=== PATIENT | female | born 1980 | race Caucasian/White ===

== ENCOUNTER → 2020-03-31 11:01 | Outpatient (BNVA) | payer MEDICAID, SELFPAY | PROVIDERS: Family Provider Family Medicine; PCP Nurse Practitioner Family; Visit Provider Nurse Practitioner Family | DX: I10 Essential (primary) hypertension (principal); E55.9 Vitamin D deficiency, unspecified; R09.02 Hypoxemia; J22 Unspecified acute lower respiratory infection; Z13.6 Encounter for screening for cardiovascular disorders; Z79.899 Other long term (current) drug therapy | CPT/HCPCS: 80053; 80061; 81003; 82306; 83036; 83735; 83880; 84100; 84439; 84443; 84481; 85025 ==

== ENCOUNTER 2022-09-06 10:41 | Inpatient (IN) | payer BC, MEDICAID, SELFPAY ==
[2022-09-06] VITALS (61 sets, daily range): BP systolic 116–244; BP diastolic 76–191; PULSE 78–98; RESP 1–33; TEMP 36.6; O2SAT 89–100; BMI 60.2
--- NOTE | 2022-09-06 10:45 | USCV_ITS ---
Sungseptember Age: 42 Gender: F : 1980 Exam Date: 09/06/2022 11:02 Ordering Phys: Mariusz Velasquez MD Technologist: Milton Washington Exam Location: [facility] [place] Indication: chest pain BP: 160 / 94 HR: 90 Rhythm: Sinus Technical Quality: Adequate MEASUREMENTS (Male / Female) Normal Values 2D ECHO LV Diastolic Diameter PLAX 6.8 cm 4.2 - 5.9 / 3.9 - 5.3 cm LV Systolic Diameter PLAX 4.8 cm IVS Diastolic Thickness 0.9 cm 0.6 - 1.0 / 0.6 - 0.9 cm IVS Systolic Thickness 1.4 cm LVPW Diastolic Thickness 1.1 cm 0.6 - 1.0 / 0.6 - 0.9 cm LVPW Systolic Thickness 1.6 cm LVOT Diameter 2.1 cm LV Ejection Fraction 2D Teich 55.8 % LV Ejection Fraction MOD 2C 54.6 % LV Ejection Fraction 2C AL 55.2 % LA Diameter 4.4 cm LA Width 4.0 cm LA Height 5.2 cm RA Width 3.0 cm RA Height 5.0 cm Aorta at Sinotubular Diameter 2.7 cm IVC Diameter 2.0 cm M-MODE Aortic Annulus Diameter 2.9 cm LA Ao Ratio MM 1.5 MV E Point Septal Separation 1.0 cm DOPPLER AV Peak Velocity 199.0 cm/s LVOT Peak Velocity 121.0 cm/s AV Area Cont Eq vti 2.4 cm squared AV Area Cont Eq pk 2.0 cm squared MV Peak Velocity 175.0 cm/s MV Area PHT 6.7 cm squared Mitral E to A Ratio 0.9 MV E' Velocity 36.0 cm/s Mitral E to MV E' Ratio 6.3 Mitral E to LV E' Lateral Ratio 9.9 Mitral E to LV E' Septal Ratio 4.6 Right Atrial Pressure 3.0 mmHg PV Peak Velocity 93.0 cm/s RV Acceleration Time 0.1 s RV Ejection Time 0.2 s RV AcT/ET 0.4 FINDINGS Left Ventricle Normal left ventricular size, systolic function and wall thickness, with no regional wall motion abnormalities. Left ventricular ejection fraction is estimated at 60 %. Grade I/IV diastolic dysfunction (abnormal relaxation filling pattern), normal to mildly elevated filling pressures. Right Ventricle The right ventricle is normal in size and function. Right Atrium The right atrium is normal in size. Left Atrium The left atrium is normal in size. Mitral Valve Structurally normal mitral valve without significant stenosis or prolapse. Trace mitral regurgitation. Aortic Valve Aortic valve not well visualized. . Tricuspid Valve Tricuspid valve not well visualized. Pulmonic Valve Pulmonic valve not well visualized. Pericardium Normal pericardium without effusion. Aorta Normal ascending aorta dimension. IVC The inferior vena cava appears normal. CONCLUSIONS 1-Normal left ventricular size, systolic function and wall thickness, with no regional wall motion abnormalities. Left ventricular ejection fraction is estimated at 60 %. Grade I/IV diastolic dysfunction (abnormal relaxation filling pattern), normal to mildly elevated filling pressures. 2-Aortic, tricuspid, pulmonary and mitral valves were not well visualized due to suboptimal images probably normal 3-There is no pericardial effusion. 4-There are no prior echocardiogram studies to compare. Lurdes Crain MD (Electronically Signed) Final Date: 06 September 2022 20:03 S
[2022-09-06] MEDS: amlodipine 10 mg Tablet PO (10:59)
[2022-09-06] MEDS: heparin 5,000 unit/mL INJ 1 mL 5000 UNIT SUBCUT ×2 (10:59→18:25)
[2022-09-06] MEDS: nicardipine 20 MG/200 ML PREMIX 50 MG IV ×3 (11:00→22:04)
[2022-09-06] MEDS: hydroCHLOROthiazide 25 mg Tablet PO (11:03)
[2022-09-06] MEDS: lisinopril 20 mg Tablet PO (11:04)
[2022-09-06] MEDS: perflutren protein-a microsphr 0.22 mg/mL SDV 3 mL IV (11:53)
--- NOTE | 2022-09-06 19:02 | P.HP_ITS ---
Providers/Chief Complaint Admitting Physician: Davey Paiz Primary Care Provider: Isacc Cisneros Chief Complaint: hypertensive urgency History of Present Illness Le Almaraz is a 42 year old female with known past medical history of hypertension noncompliant with antihypertensive medication, morbid obesity, was accepted as a direct transfer, she was initially admitted for the management of substernal chest pain, associated with acute onset of worsening shortness of breath. When she arrived in the ER she was found to be in hypertensive emergency, she was started on nitroprusside drip, CTA chest was done which ruled out pulmonary embolism, showed pulmonary vascular congestion, troponin trend was unremarkable, x-ray chest: Suggestive of pulmonary vascular congestion When she arrived here in the ICU she was still complaining of chest tightness as well as shortness of breath, Blood pressure was extremely uncontrolled systolic blood pressure was in 200 as well as diastolic in 130s Maximum noted blood pressure was:244/136. She was started on nicardipine drip, as well as oral antihypertensive. Review of Systems General: Reports: 10 or more systems reviewed and unremarkable except in HPI and below Const: Denies: fever(s), chills, body aches, change in appetite or diaphoresis Card: Reports: dyspnea on exertion and orthopnea; Denies: palpitations, edema, swelling of feet/ankles or leg pain with exertion Resp: Reports: dyspnea; Denies: productive cough, wheezing or pain on inspiration GI: Denies: abdominal pain, nausea, vomiting, diarrhea or constipation : Denies: flank pain Musc: Denies: back pain, extremity pain or extremity swelling Neuro: Denies: headache(s), difficulty walking or confusion Medications/Allergies Home Medications Medication Instructions Recorded Confirmed Last Taken Type cholecalciferol (vitamin D3) 1,250 50,000 unit PO .Weekly 90 days #12 04/06/20 03/08/22 Unknown Rx mcg (50,000 unit) capsule caps amlodipine 5 mg tablet See Rx Instructions .Route 11/02/20 Unknown Rx .COMPLEX #30 tabs furosemide 20 mg tablet (Lasix) 20 mg PO QAM 30 days #30 tabs 11/02/20 03/08/22 Unknown Rx lisinopril 20 1 tab PO DAILY 30 days #30 tabs 11/02/20 03/08/22 Unknown Rx mg-hydrochlorothiazide 25 mg tablet potassium chloride 10 mEq See Rx Instructions .Route 11/02/20 03/08/22 Unknown Rx capsule,extended release .COMPLEX #30 caps nitrofurantoin 100 mg PO Q12H 7 days #14 caps 03/08/22 03/08/22 Unknown Rx monohydrate/macrocrystals 100 mg capsule (Macrobid) Allergies Allergy/AdvReac Type Severity Reaction Status Date / Time No Known Allergies Allergy Verified 03/08/22 08:47 PFSH Acute PFSH: Medical History (Updated 09/06/22 @ 19:04 by Mariusz Velasquez MD) CHF (congestive heart failure) Essential hypertension Hypertension screen Hypoxia Medication management Polycystic ovarian disease Vitamin D deficiency Surgical History S/P cholecystectomy S/P D&C (status post dilation and curettage) S/P tubal ligation Social History Smoking and tobacco status: former smoker Quit status (tobacco): has quit using tobacco Second hand smoke exposure: No Smoking risk assessment/counseling performed?: No Alcohol intake: never Desire information about alcohol rehabilitation?: No Counseling given: No Desire information about substance/drug rehabilitation?: No Counseling given: No Vitals/I&O/Wt Last Vital Signs Pulse 83 09/06/22 16:30 Resp 20 H 09/06/22 16:30 BP 139/87 09/06/22 16:30 Pulse Ox 94 09/06/22 16:30 O2 Del Method 09/06/22 11:24 O2 Flow Rate 4 09/06/22 11:24 09/06/22 09/06/22 09/06/22 06:59 14:59 22:59 Intake Total 560.000 / 560.000 240 / 800.000 Output Total 125 / 125 400 / 525 Balance 435.000 / 435.000 -160 / 275.000 Weight last 48 hrs Weight 174.633 kg Physical Exam Const: COMMON NORMALS: patient oriented x3 HENMT: COMMON NORMALS: normocephalic, atraumatic and hearing grossly normal bilaterally HEAD & SCALP: normocephalic and atraumatic Resp: COMMON NORMALS: clear to auscultation bilaterally AUSCULTATION: clear to auscultation bilaterally OTHER: Diminished air entry bilaterally Cardio: COMMON NORMALS: regular rate, regular rhythm, S1 normal heart sound present, S2 normal heart sound present, No gallops present (Cardio), No murmurs present (Cardio), No rub (Cardio) and Peripheral pulses 2+ throughout RATE: regular rate RHYTHM: regular rhythm HEART SOUNDS: S1 normal heart sound present and S2 normal heart sound present PERIPHERAL PULSES: Peripheral pulses 2+ throughout GI: COMMON NORMALS: Normal to inspection, nondistended, normoactive bowel sounds present, Soft to palpation, non-tender, No hepatosplenomegaly present and no masses AUSCULTATION: Yes normoactive bowel sounds PALPATION: Yes Soft to palpation and Yes No hepatosplenomegaly present RECTAL EXAM: deferred Extremity: COMMON NORMALS: no clubbing, cyanosis or edema and no pedal edema Neuro: COMMON NORMALS: patient oriented x3 A&P Assessment and plan (1) Hypertensive emergency: (2) Flash pulmonary edema: (3) Hypoxia: Plan 42 year old female with known past medical history of hypertension noncompliant with antihypertensive medication, morbid obesity, was accepted as a direct transfer, she was initially admitted for the management of substernal chest bandar n, associated with acute onset of worsening shortness of breath. Assessment: Hypertensive emergency with flash pulmonary edema: CTA chest was done which ruled out pulmonary embolism, showed pulmonary vascular congestion, troponin trend was unremarkable, x-ray chest: Suggestive of pulmonary vascular congestion. Currently she has been started on nicardipine drip.nitro/ nitroprusside drip has not been used as the patient was complaining of bad headache after being started on nitroprusside drip. Current goal is to reduce blood pressure by 25% in first 1 to 2 hours from the baseline blood pressure and thereafter continue with gradual blood pressure reduction. She has been started on amlodipine lisinopril and hydrochlorothiazide p.o. Continue telemetry monitoring. Chest pain: Could be related to hypertensive emergency. Troponin trend is unremarkable Monitor EKG Follow 2D echo CODE STATUS: Full code DVT prophylaxis: On heparin subacute Attestations Medical Necessity Statement*: Patient is to be in hospital for management of hypertensive emergency. Anticipated length of stay: Greater than 2 midnights. Critical Care Time: The high probability of a clinically significant, sudden or life threatening deterioration of the patient's [] system(s) required my full and direct attention, intervention and personal management. The critical care time is as shown. This time is in addition to time spent performing any reported procedures but includes the following: [x] Data and vital sign review and interpretation [x] Patient assessment, examination and intervention [x] Documentation [x] Medication orders and management Critical Care Time (min): 35 Coding Level of Care Code Critical Care >/= 30 minutes Diagnoses Hypertensive emergency I16.1 Flash pulmonary edema J81.0 Hypoxia R09.02
--- NOTE | 2022-09-06 19:06 | ECG_ITS ---
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1980 Requested By: Mariusz Velasquez Order Number: [id number] Reading MD: FREDDIE VASQUEZ Measurements Intervals [place] Rate: 84 P: 63 WV: 186 QRS: -16 QRSD: 101 T: 110 QT: 380 QTc: 449 Interpretive Statements SINUS RHYTHM POSSIBLE LEFT ATRIAL ENLARGEMENT [-0.1mV P-WAVE IN V1/V2] MODERATE T-WAVE ABNORMALITY, CONSIDER LATERAL ISCHEMIA [-0.1+ mV T-WAVE IN I/aVL/V5/V6] No previous ECG available for comparison Electronically Signed On 09-06-2022 20:32:41 CDT by FREDDIE VASQUEZ [email or web address] [email or web address] county general [id number]
[2022-09-07] VITALS (59 sets, daily range): BP systolic 69–214; BP diastolic 40–114; PULSE 66–106; RESP 0–30; TEMP 36.7–36.9; O2SAT 66–98
[2022-09-07] MEDS: nicardipine 20 MG/200 ML PREMIX 80 MG IV (00:52)
[2022-09-07] MEDS: heparin 5,000 unit/mL INJ 1 mL 5000 UNIT SUBCUT ×2 (02:40→10:29)
[2022-09-07] MEDS: nicardipine 20 MG/200 ML PREMIX 130 MG IV (02:52)
[2022-09-07] MEDS: nicardipine 20 MG/200 ML PREMIX 150 MG IV ×4 (04:12→14:36)
[2022-09-07] MEDS: acetaminophen 325 mg Tablet 650 MG PO (04:50)
[2022-09-07 05:14] LABS: Basophils % 0.2 %; Eosinophils # 0.1 10^3/uL (0.0-0.8); Eosinophils % 1.5 %; Hematocrit 56.5 % (37.0-47.0); Hemoglobin 16.1 g/dL (11.5-15.3); Lymphocytes # 1.5 10^3/uL (0.8-4.8); Lymphocytes % 18.5 %; Mean Corpuscular HGB Conc 28.5 g/dL (30.0-36.0); Mean Corpuscular Hemoglobin 27.2 pg (28.0-34.0); Mean Corpuscular Volume 95.4 fl (81-99); Mean Platelet Volume 10.3 fL (7.4-10.4); Monocytes # 0.5 10^3/uL (0.2-0.9); Monocytes % 6.2 %; Neutrophils # 5.99 10^3/uL (1.8-7.7); Neutrophils % 73.2 %; Nucleated Red Blood Cells % 0 %; Platelet Count 199 10^3/cmm (130-400); Red Blood Count 5.92 10^6/uL (4.1-5.3); Red Cell Distribution Width 12.8 % (12.1-15.1); White Blood Count 8.2 10^3/uL (4.0-10.0)
[2022-09-07 05:37] LABS: Alanine Aminotransferase 20 U/L (0-33); Albumin Level 3.4 g/dL (3.5-5.2); Alkaline Phosphatase 88 U/L (35-105); Aspartate Amino Transferase 21 U/L (0-32); Blood Urea Nitrogen 9 mg/dL (6-20); Calcium 9.1 mg/dL (8.5-10.5); Carbon Dioxide 35 mmol/L (22-29); Chloride 101 mmol/L (98-107); Globulin 3.4 g/dL (1.3-4.6); Glomerular Filtration Rate 135.3 mL/min (90-130); Glucose 95 mg/dL (65-115); Magnesium 2.1 mg/dL (1.7-2.3); Osmolality Calculated 292 mOsm/kg (285-295); Sodium 142 mmol/L (136-145); Total Bilirubin 0.6 mg/dL (0.15-1.2); Total Protein 6.8 g/dL (6.6-8.7)
[2022-09-07 05:38] LABS: Anion Gap 10.4 (5-19); Potassium 4.4 mmol/L (3.5-5.1)
--- NOTE | 2022-09-07 07:55 | PC.PHAR ---
PTS STS PT USED TO TAKE SOME MEDICATIONS BUT NO LONGER TAKES ANY PRESCRIPTIONS
[2022-09-07] MEDS: lisinopril 20 mg Tablet PO ×2 (08:26→08:35)
[2022-09-07] MEDS: hydroCHLOROthiazide 25 mg Tablet PO (08:26)
[2022-09-07] MEDS: amlodipine 10 mg Tablet PO (08:26)
[2022-09-07] MEDS: nicardipine 20 MG/200 ML PREMIX 125 MG IV ×3 (08:53→12:56)
[2022-09-07] MEDS: hyDRALAzine 50 mg Tablet 100 MG PO ×2 (13:12→20:35)
--- NOTE | 2022-09-07 13:21 | PM.PN ---
Subjective Subjective: Patient was seen and examined this morning, nicardipine drip had to be restarted overnight, as the blood pressure was again shooting high, currently she has denied chest pain shortness of breath. Medications: Medication Review Details: Generic Name Dose Route Start Last Admin Trade Name Freq PRN Reason Stop Dose Admin Acetaminophen 650 mg 09/06/22 10:41 09/07/22 04:50 Acetaminophen 32 5 Mg Tablet PO 650 mg Q6H PRN Administration Mild/Mod Pain Or Temp >/= 101 Amlodipine Besylat e 10 mg 09/06/22 10:45 09/07/22 08:26 Amlodipine 10 Mg Tablet PO 10 mg DAILY STERLING Administration Heparin Sodium (Po rcine) 5,000 unit 09/06/22 10:45 09/07/22 10:29 Heparin 5,000 Un it/Ml Inj 1 Ml SUBCUT 5,000 unit Q8H STERLING Administration Hydralazine HCl 100 mg 09/07/22 13:30 09/07/22 13:12 Hydralazine 50 M g Tablet PO 100 mg TID STERLING Administration Hydrochlorothiazid e 25 mg 09/06/22 11:00 09/07/22 08:26 Hydrochlorothiaz ron 25 Mg Tablet PO 25 mg DAILY STERLING Administration Nicardipine/Sodium Chloride 20 mg in 200 mls @ 0 mls/hr 09/06/22 10:45 09/07/22 12:56 Cardene IV 12.5 mg/hr .Q0M STERLING 125 mls/hr Administration Protocol Per Protocol Vitals/I&O/Wt Last Vital Signs Temp 98.0 F 09/07/22 04:00 Pulse 85 09/07/22 12:30 Resp 18 09/07/22 12:30 BP 214/105 09/07/22 12:30 Pulse Ox 98 09/07/22 12:30 O2 Del Method 09/07/22 09:24 O2 Flow Rate 6 09/07/22 09:24 09/06/22 09/07/22 09/07/22 22:59 06:59 14:59 Intake Total 591.667 / 1151.667 992.833 / 2144.500 1160.000 / 1160.000 Output Total 700 / 825 1700 / 2525 600 / 600 Balance -108.333 / 326.667 -707.167 / -380.500 560.000 / 560.000 Weight last 48 hrs Weight 173.726 kg Weight 174.633 kg Physical Exam Const: COMMON NORMALS: patient oriented x3 HENMT: COMMON NORMALS: normocephalic, atraumatic and hearing grossly normal bilaterally HEAD & SCALP: normocephalic and atraumatic Resp: COMMON NORMALS: clear to auscultation bilaterally AUSCULTATION: clear to auscultation bilaterally OTHER: Diminished air entry bilaterally Cardio: COMMON NORMALS: regular rate, regular rhythm, S1 normal heart sound present, S2 normal heart sound present, No gallops present (Cardio), No murmurs present (Cardio), No rub (Cardio) and Peripheral pulses 2+ throughout RATE: regular rate RHYTHM: regular rhythm HEART SOUNDS: S1 normal heart sound present and S2 normal heart sound present PERIPHERAL PULSES: Peripheral pulses 2+ throughout GI: COMMON NORMALS: Normal to inspection, nondistended, normoactive bowel sounds present, Soft to palpation, non-tender, No hepatosplenomegaly present and no masses AUSCULTATION: Yes normoactive bowel sounds PALPATION: Yes Soft to palpation and Yes No hepatosplenomegaly present RECTAL EXAM: deferred Extremity: COMMON NORMALS: no clubbing, cyanosis or edema and no pedal edema Neuro: COMMON NORMALS: patient oriented x3 Data 09/07/22 04:38 09/07/22 04:38 A&P Assessment and plan (1) Hypertensive emergency: (2) Flash pulmonary edema: (3) Hypoxia: Plan 42 year old female with known past medical history of hypertension noncompliant with antihypertensive medication, morbid obesity, was accepted as a direct transfer, she was initially admitted for the management of substernal chest pain, associated with acute onset of worsening shortness of breath. Assessment: Hypertensive emergency with flash pulmonary edema: CTA chest was done which ruled out pulmonary embolism, showed pulmonary vascular congestion, troponin trend was unremarkable, x-ray chest: Suggestive of pulmonary vascular congestion. Currently she has been started on nicardipine drip.nitro/ nitroprusside drip has not been used as the patient was complaining of bad headache after being started on nitroprusside drip. Current goal is to reduce blood pressure by 25% in first 1 to 2 hours from the baseline blood pressure and thereafter continue with gradual blood pressure reduction. She has been started on amlodipine lisinopril hydrochlorothiazide , today clonidine as well as hydralazine was added for better blood pressure control. Continue telemetry monitoring. Chest pain: Could be related to hypertensive emergency. Troponin trend is unremarkable Monitor EKG 2D echo: Normal LV size systolic function and wall thickness with no RWMA, LVEF estimated 60%, grade 1 diastolic dysfunction. Follow x-ray chest Hypoxia: Could be related to flash pulmonary edema. Possibly she also has some component of an underlying JOSE L/OHS syndrome. Supplemental oxygen as needed. Lasix as needed CODE STATUS: Full code DVT prophylaxis: On heparin subacute Attestations Medical Necessity Statement*: Needs to be in hospital for management hypertensive emergency. Critical Care Time: Critical Care Time (min): 35 Coding Level of Care Code Critical Care >/= 30 minutes Diagnoses Hypertensive emergency I16.1 Flash pulmonary edema J81.0 Hypoxia R09.02
--- NOTE | 2022-09-07 13:55 | PC.NURSE ---
Shift Note Frequent safety and comfort rounds continue. Orders and nursing care completed as indicated. Patient monitored for response to intervention and treatments. Education provided includes blood pressure management, importance of compliances with medication administration, new medications-cardene, lisinopril, norvasc, catapres, hydralazine, hydrochlorothiazide. Patient verbalized understanding, I probably can't get away with not taking my home medications that long again. This nurse contacted Dr. eVlasquez several times today regarding high blood pressure on cardene drip. Medications adjusted as needed, see mar for medication changes. Will continue to monitor.
[2022-09-07] MEDS: cloNIDine 0.1 mg Tablet 0.3 MG PO ×2 (14:13→20:35)
--- NOTE | 2022-09-07 17:10 | XRR_ITS ---
PROCEDURE INFORMATION: Exam: XR Chest Exam date and time: 09/07/2022 4:15 PM Age: 42 years old Clinical indication: Shortness of breath; Additional info: SOB TECHNIQUE: Imaging protocol: Radiologic exam of the chest. Views: 1 view. COMPARISON: CR XR chest 1V [id number] 10/18/2017 5:01 PM FINDINGS: Lungs: Patchy bilateral ground-glass airspace opacities reflecting alveolar edema and/or pneumonic infiltrates. Pulmonary vascular congestion. Pleural spaces: Unremarkable. No pleural effusion. No pneumothorax. Heart/Mediastinum: Cardiomegaly. Bones/joints: Unremarkable. XR/XR chest 1V portable [id number] IMPRESSION: 1. Patchy bilateral ground-glass airspace opacities reflecting alveolar edema and/or pneumonic infiltrates. 2. Cardiomegaly. 3. Pulmonary vascular congestion.
--- NOTE | 2022-09-07 18:26 | PC.NURSE ---
Right forearm IV infiltrated. IV removed, catheter noted to be intact, cold compress applied. New ultrasound guided IV paced in left forearm, patient tolerated well. Will continue to monitor site on Right forearm.
[2022-09-07] MEDS: ondansetron 2 mg/ML SDV 2 mL 4 MG IVP (21:54)
--- NOTE | 2022-09-07 22:20 | ECG_ITS ---
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1980 Requested By: Davey Paiz Order Number: [id number] Reading MD: FREDDIE VASQUEZ Measurements Intervals [place] Rate: 76 P: 55 [place]: 192 QRS: -24 QRSD: 101 T: 95 QT: 406 QTc: 459 Interpretive Statements SINUS RHYTHM POSSIBLE LEFT ATRIAL ENLARGEMENT [-0.1mV P-WAVE IN V1/V2] BORDERLINE LEFT AXIS DEVIATION [QRS AXIS < -20] ST DEVIATION AND MODERATE T-WAVE ABNORMALITY, CONSIDER LATERAL ISCHEMIA [-0.1+ mV T-WAVE IN I/aVL/V5/V6] Compared to ECG 09/06/2022 20:08:21 No significant changes Electronically Signed On 09-09-2022 23:44:57 CDT by FREDDIE VASQUEZ [id number]
[2022-09-08] VITALS (48 sets, daily range): BP systolic 64–118; BP diastolic 34–75; PULSE 71–88; RESP 0–31; TEMP 36.1–36.9; O2SAT 86–98
[2022-09-08] MEDS: heparin 5,000 unit/mL INJ 1 mL 5000 UNIT SUBCUT ×3 (03:22→18:18)
[2022-09-08 06:55] LABS: Basophils % 0.1 %; Hematocrit 58.4 % (37.0-47.0); Hemoglobin 16.3 g/dL (11.5-15.3); Lymphocytes % 6.5 %; Mean Corpuscular HGB Conc 27.9 g/dL (30.0-36.0); Mean Corpuscular Hemoglobin 27.7 pg (28.0-34.0); Mean Corpuscular Volume 99.3 fl (81-99); Monocytes # 0.8 10^3/uL (0.2-0.9); Monocytes % 4.8 %; Neutrophils # 13.68 10^3/uL (1.8-7.7); Neutrophils % 88.2 %; Nucleated Red Blood Cells % 0 %; Platelet Count 307 10^3/cmm (130-400); Red Blood Count 5.88 10^6/uL (4.1-5.3); Red Cell Distribution Width 13.4 % (12.1-15.1); White Blood Count 15.5 10^3/uL (4.0-10.0)
[2022-09-08 07:13] LABS: Alanine Aminotransferase 19 U/L (0-33); Albumin Level 3.6 g/dL (3.5-5.2); Alkaline Phosphatase 83 U/L (35-105); Aspartate Amino Transferase 25 U/L (0-32); Blood Urea Nitrogen 17 mg/dL (6-20); Calcium 8.9 mg/dL (8.5-10.5); Carbon Dioxide 35 mmol/L (22-29); Chloride 99 mmol/L (98-107); Globulin 3.2 g/dL (1.3-4.6); Glucose 145 mg/dL (65-115); Osmolality Calculated 298 mOsm/kg (285-295); Sodium 142 mmol/L (136-145); Total Bilirubin 0.6 mg/dL (0.15-1.2); Total Protein 6.8 g/dL (6.6-8.7)
[2022-09-08 07:19] LABS: Anion Gap 13.2 (5-19); Potassium 5.2 mmol/L (3.5-5.1)
--- NOTE | 2022-09-08 08:13 | PC.NURSE ---
resting in bed at bedside .. weaning levophed at this time
--- NOTE | 2022-09-08 08:59 | PC.PHAR ---
Pharmacy to Dose Vancomycin Patient: Sung September Floor: ICU 07-26 Age: 42 yo Serum creatinine: 1.9 mg/dL Height: 67.0 Inches Weight (kg): 173.017 IBW (kg): 61.60 Dosing wt(kg): 106.2 Estimated Creatinine clearance (ml/min): 64.7 CRCL method: Cockcroft and Gault using adjusted body weight Drug selected: Vancomycin Loading dose (mg): Vd (liters): 74.3 (factor used: 0.7 L/kg) Alessandro (hr-1): 0.058 Half life (hrs): 11.95 CLvanco=?? 4.309 L/hr Recommended dose: 2000 mg Interval: 18 hrs Infusion time (hrs): 2.0 Predicted peak (mcg/mL): 39.2 Predicted trough (mcg/mL): 15.50 Adjusted body weight was selected for vancomycin dosing. To switch back, select the total body weight option above. Renal function is stable [ ] /unstable [ ] Recommendations: Give Vancomycin 2000 mg q 18 hrs with an expected Cpeak of 39.2 mcg/ml and an expected Ctrough of 15.50 mcg/ml AUC 0-24 /JASON Data: JASON 0.5 mcg/mL:?? AUC/JASON:? 1237.7 JASON 1.0 mcg/mL:?? AUC/JASON:? 618.9 --------- JASON 1.5 mcg/mL:?? AUC/JASON:? 412.6 JASON 2.0 mcg/mL:?? AUC/JASON:? 309.4 Renal dosing of other antibiotics (review renal dosing of other medications and list guidelines here): Thank you for the consult, will continue to follow. Signature:
[2022-09-08] MEDS: piperacillin-tazobactam 3.375 GM in sodium chloride 0.9% (plus) 50 ML IV ×2 (09:09→16:42)
[2022-09-08 09:38] LABS: Lactic Sepsis W/Reflex 1.6 mmol/L (0.5-2.2)
[2022-09-08 09:49] LABS: Procalcitonin 0.35 ng/mL (0-0.5)
[2022-09-08] MEDS: FUROsemide 10 mg/mL SDV 4mL 40 MG IVP (10:08)
[2022-09-08] MEDS: sodium chloride 0.9% 500 ML IV ×2 (10:31→13:16)
--- NOTE | 2022-09-08 11:35 | PC.NURSE ---
noted drop in blood pressure this am doctor aware given fluid bolus and incresase in levophed at this time .... long inserted with minimal urine return noted
[2022-09-08 11:47] LABS: Adenovirus Not Detected (NOT DETECT); Chlamydia Pneumoniae Not Detected (NOT DETECT); Coronavirus 229E,HKU1,NL63,OC4 Not Detected (NOT DETECT); Human Metapneumovirus Not Detected (NOT DETECT); Human Rhinovirus/Enterovirus Not Detected (NOT DETECT); Influenza A Not Detected (NOT DETECT); Influenza A H1 Not Detected (NOT DETECT); Influenza A H1-2009 Not Detected (NOT DETECT); Influenza A H3 Not Detected (NOT DETECT); Influenza B Not Detected (NOT DETECT); Mycoplasma Pneumoniae Not Detected (NOT DETECT); Parainfluenza Virus Type 1 Not Detected (NOT DETECT); Parainfluenza Virus Type 2 Not Detected (NOT DETECT); Parainfluenza Virus Type 3 Not Detected (NOT DETECT); Parainfluenza Virus Type 4 Not Detected (NOT DETECT); Respiratory Syncytial Virus A Not Detected (NOT DETECT); Respiratory Syncytial Virus B Not Detected (NOT DETECT); SARS-COV-2 Not Detected (NOT DETECT)
[2022-09-08] MEDS: norepinephrine 8 MG in dextrose 5 % 500 ML 60.96 MG IV (12:17)
--- NOTE | 2022-09-08 13:19 | PC.NURSE ---
blood pressure dropped after bolus stopped ..... repeat ns bolus started
--- NOTE | 2022-09-08 13:38 | P.PN_ITS ---
Subjective Subjective: Last night patient started having profuse diarrhea, she also became hypotensive, requiring the need for, Levophed, Currently she is also requiring 6 L oxygen, x-ray chest is suggestive of: Patchy bilateral infiltrates, also pulmonary vascular congestion. White blood cell count is also elevated, creatinine has gone up to 1.9, Serum potassium is elevated :5.2 , Medications: Medication Review Details: Generic Name Dose Route Start Last Admin Trade Name Freq PRN Reason Stop Dose Admin Acetaminophen 650 mg 09/06/22 10:41 09/07/22 04:50 Acetaminophen 32 5 Mg Tablet PO 650 mg Q6H PRN Administration Mild/Mod Pain Or Temp >/= 101 Amlodipine Besylat e 10 mg 09/06/22 10:45 09/07/22 08:26 Amlodipine 10 Mg Tablet PO 10 mg DAILY STER[facility]ING Administration Heparin Sodium (Po rcine) 5,000 unit 09/06/22 10:45 09/08/22 10:31 Heparin 5,000 Un it/Ml Inj 1 Ml SUBCUT 5,000 unit Q8H [facility] Administration Hydrochlorothiazid e 25 mg 09/06/22 11:00 09/07/22 08:26 Hydrochlorothiaz ron 25 Mg Tablet PO 25 mg DAILY [facility] Administration Nicardipine/Sodium Chloride 20 mg in 200 mls @ 0 mls/hr 09/06/22 10:45 09/07/22 17:00 Cardene IV 0 mg/hr .Q0M STER[place]ING 0 mls/hr Titration Protocol Per Protocol Norepinephrine Bit artrate 4 mg 254 mls @ 0 mls/h r 09/07/22 22:30 09/08/22 11:20 / Dextrose IV 16 mcg/min .Q0M STER[place]ING 60.96 mls/hr Titration Protocol Per Protocol Piperacillin Sod/T azobactam 50 mls @ 12.5 mls /hr 09/08/22 08:30 09/08/22 09:09 Sod 3.375 gm/ So dium Chloride IV 12.5 mls/hr Q8H [facility] Administration Protocol Vancomycin HCl 2,0 00 mg/ 500 mls @ 250 mls /hr 09/08/22 09:30 09/08/22 10:17 Sodium Chloride IV 250 mls/hr Q18H [facility] Administration Norepinephrine Bit artrate 8 mg 508 mls @ 0 mls/h r 09/08/22 11:30 09/08/22 12:17 / Dextrose IV 16 mcg/min .Q0M STER[place]ING 60.96 mls/hr Administration Protocol Per Protocol Ondansetron HCl 4 mg 09/06/22 10:41 09/07/22 21:54 Ondansetron 2 Mg /Ml Sdv 2 Ml IVP 4 mg Q8H PRN Administration vomiting, or N/V if npo Vitals/I&O/Wt Last Vital Signs Temp 98.5 F 09/08/22 04:00 Pulse 72 09/08/22 13:00 Resp 3 L 09/08/22 13:00 BP 118/34 09/08/22 13:00 Pulse Ox 92 09/08/22 13:00 O2 Del Method 09/08/22 09:00 O2 Flow Rate 6 09/08/22 09:00 09/07/22 09/08/22 09/08/22 22:59 06:59 14:59 Intake Total 367.917 / 1750.417 119.685 / 1870.102 656.655 / 656.655 Output Total 300 / 900 0 / 900 Balance 67.917 / 850.417 119.685 / 970.102 656.655 / 656.655 Weight last 48 hrs Weight 173.017 kg Weight 173.726 kg Physical Exam Const: COMMON NORMALS: patient oriented x3 HENMT: COMMON NORMALS: normocephalic, atraumatic and hearing grossly normal bilaterally HEAD & SCALP: normocephalic and atraumatic Resp: COMMON NORMALS: clear to auscultation bilaterally AUSCULTATION: clear to auscultation bilaterally OTHER: Diminished air entry bilaterally Cardio: COMMON NORMALS: regular rate, regular rhythm, S1 normal heart sound present, S2 normal heart sound present, No gallops present (Cardio), No murmurs present (Cardio), No rub (Cardio) and Peripheral pulses 2+ throughout RATE: regular rate RHYTHM: regular rhythm HEART SOUNDS: S1 normal heart sound present and S2 normal heart sound present PERIPHERAL PULSES: Peripheral pulses 2+ throughout GI: COMMON NORMALS: Normal to inspection, nondistended, normoactive bowel sounds present, Soft to palpation, non-tender, No hepatosplenomegaly present and no masses AUSCULTATION: Yes normoactive bowel sounds PALPATION: Yes Soft to palpation and Yes No hepatosplenomegaly present RECTAL EXAM: deferred Extremity: COMMON NORMALS: no clubbing, cyanosis or edema and no pedal edema Neuro: COMMON NORMALS: patient oriented x3 Urinary Catheter Management: Cha: Cath Placed During This Visit: yes Urinary Catheter Date of Insertion: 09/08/22 Urinary Catheter Time of Insertion: 10:29 Data 09/08/22 06:45 09/08/22 06:45 Micro: Microbiology 09/08/22 09:06 Blood Culture - Preliminary Blood SPECIMEN COLLECTED 09/08/22 09:08 Blood Culture - Preliminary Blood SPECIMEN COLLECTED A&P Assessment and plan (1) Hypertensive emergency: (2) Flash pulmonary edema: (3) Hypoxia: (4) Diarrhea: (5) Pneumonia: (6) Sepsis: Plan 42 year old female with known past medical history of hypertension noncompliant with antihypertensive medication, morbid obesity, was accepted as a direct transfer, she was initially admitted for the management of substernal chest pain, associated with acute onset of worsening shortness of breath. Assessment: Sepsis secondary to hospital-acquired pneumonia: Possible C. difficile diarrhea. Patient currently meets sepsis criteria: Has elevated white cell count, hypotensive, increasing oxygen requirement, need for vasopressor support, x-ray chest showing possible infiltrates. Patient currently has received cautious IV fluid bolus of 1 L, and has also been started on maintenance IV fluid, with closely monitor intake output charting as well as volume status, his chest x-ray is also suggestive of pulmonary vascular congestion. Follow blood culture, urine culture, MRSA PCR C. difficile PCR, urine Legionella antigen bacterial antigen panel sputum Gram stain and culture, currently she has been empirically started on broad-spectrum antibiotic Vanco and Zosyn. Hypertensive emergency with flash pulmonary edema: Resolved CTA chest was done which ruled out pulmonary embolism, showed pulmonary vascular congestion, troponin trend was unremarkable, x-ray chest: Suggestive of pulmonary vascular congestion. Currently she has been started on nicardipine drip.nitro/ nitroprusside drip has not been used as the patient was complaining of bad headache after being started on nitroprusside drip. Current goal is to reduce blood pressure by 25% in first 1 to 2 hours from the baseline blood pressure and thereafter continue with gradual blood pressure reduction. She has been started on amlodipine lisinopril hydrochlorothiazide , later clonidine as well as hydralazine was added for better blood pressure control. Antihypertensive medication has been kept on hold. Continue telemetry monitoring. Pulmonary edema: Lasix 40 IV one-time dose today with Lasix as needed. Chest pain: Could be related to hypertensive emergency. Troponin trend is unremarkable Monitor EKG 2D echo: Normal LV size systolic function and wall thickness with no RWMA, LVEF estimated 60%, grade 1 diastolic dysfunction. Follow x-ray chest Hypoxia: Could be related to flash pulmonary edema, pneumonia. Possibly she also has some component of an underlying JOSE L/OHS syndrome. Supplemental oxygen as needed. Lasix as needed CODE STATUS: Full code DVT prophylaxis: On heparin subacute Attestations Medical Necessity Statement*: Needs to be in hospital for management of sep sis. Critical Care Time: The high probability of a clinically significant, sudden or life threatening deterioration of the patient's [] system(s) required my full and direct attention, intervention and personal management. The critical care time is as shown. This time is in addition to time spent performing any reported procedures but includes the following: [x] Data and vital sign review and interpretation [x] Patient assessment, examination and intervention [x] Documentation [x] Medication orders and management Critical Care Time (min): 35 Coding Level of Care Code Critical Care >/= 30 minutes Diagnoses Hypertensive emergency I16.1 Flash pulmonary edema J81.0 Hypoxia R09.02 Diarrhea R19.7 Pneumonia J18.9 Sepsis A41.9
--- NOTE | 2022-09-08 14:04 | PC.NURSE ---
bladder scan done as pt minimal output... only approx 25 cc noted in bladder
[2022-09-08] MEDS: sodium chloride 0.9% 1,000 ML 100 ML IV (15:09)
--- NOTE | 2022-09-08 15:58 | PC.NURSE ---
remains lethargic with no urine output noted blood pressure remains low on levophed doctor called
[2022-09-08 16:14] LABS: Arterial Blood Gas Hematocrit 54.5 % (37-47); Base Excess ABG 1.9 mmol/L (-2.0-2.0); Blood Gas Allen Test Pos; Blood Gas Operator Identificat GD; Blood Gas Sample Site Radial, right; Blood Gas Sample Type Arterial; Carboxyhemoglobin 1.8 %THgb (0.4-20.1); HCO3 ABG 35.5 mmol/L (22-26); HGB O2 Sat 94.1 % (95-100); Ionized Calcium Level - ABG 1.2 mmol/L (1.1-1.4); Methemoglobin 0.4 % (0.4-1.5); Oxygen Device NC; Oxygen Saturation ABG 96.2; PO2 ABG 79.1 mmHg (80.0-100.0); Total Hemoglobin 17.8 g/dL (12-16)
[2022-09-08 16:15] LABS: ABG PH Result 7.15 (7.35-7.45)
[2022-09-08] MEDS: calcium gluconate 0.9% NaCL 1 GM/50 ML PREMIX IV ×2 (16:26→16:38)
[2022-09-08 16:32] LABS: Glucose Point of Care 131 mg/dL (70-110)
[2022-09-08] MEDS: ondansetron 2 mg/ML SDV 2 mL 4 MG IVP (16:34)
[2022-09-08] MEDS: sodium chloride 0.9% 500 ML 999 ML IV (16:38)
[2022-09-08 17:17] LABS: Blood Urea Nitrogen 19 mg/dL (6-20); Carbon Dioxide 25 mmol/L (22-29); Chloride 97 mmol/L (98-107); Glomerular Filtration Rate 25.8 mL/min (90-130); Glucose 148 mg/dL (65-115); Osmolality Calculated 299 mOsm/kg (285-295); Sodium 142 mmol/L (136-145)
[2022-09-08 17:34] LABS: Anion Gap 25.6 (5-19); Potassium 5.6 mmol/L (3.5-5.1)
[2022-09-08 17:44] LABS: Alveolar-Arterial Oxygen Gradi 20.6 mmHg (5-10); Arterial Blood Gas Hematocrit 54.3 % (37-47); Base Excess ABG 1.6 mmol/L (-2.0-2.0); Blood Gas Allen Test Pos; Blood Gas Operator Identificat GD; Blood Gas Sample Site Radial, right; Blood Gas Sample Type Arterial; Carboxyhemoglobin 1.8 %THgb (0.4-20.1); HCO3 ABG 34.7 mmol/L (22-26); HGB O2 Sat 94.9 % (95-100); Ionized Calcium Level - ABG 1.2 mmol/L (1.1-1.4); Methemoglobin 0.5 % (0.4-1.5); Oxygen Device BIPAP; Oxygen Saturation ABG 97.1; PO2 ABG 84.6 mmHg (80.0-100.0); Total Hemoglobin 17.7 g/dL (12-16)
[2022-09-08] MEDS: insulin regular-human 10 UNIT in SYRINGE 1 EACH 1000 UNIT IVP (18:18)
--- NOTE | 2022-09-08 20:22 | USR_ITS ---
PROCEDURE INFORMATION: Exam: US Duplex Right Upper Extremity Arteries Exam date and time: 09/08/2022 10:15 PM Age: 42 years old Clinical indication: Other: Discoloration of hand; Additional info: Pale R hand, assess flow TECHNIQUE: Imaging protocol: Right Real-time ultrasound scan of the arteries of the right upper extremity with 2-D gallegos scale, color Doppler flow and spectral waveform analysis. COMPARISON: No relevant prior studies available. FINDINGS: No evidence for major vessel occlusion or definite/significant stenosis. The subclavian, axillary, brachial, radial, and ulnar arteries appear to be patent with essentially normal appearing flow and velocities on Doppler evaluation. There are no elevated velocities to suggest hemodynamically significant stenosis. Peak systolic velocities as follows: Right subclavian artery proximal: 47 cm/s Right subclavian artery mid: 51 cm/s Right subclavian artery distal: 41 cm/s Right axillary artery: 93 cm/s Right brachial artery proximal: 109 cm/s Right brachial artery mid: 97 cm/s Right brachial artery distal: 117 cm/s Right radial artery proximal: 86 cm/s Right radial artery mid: 78 cm/s Right radial artery distal: 88 cm/s Right ulnar artery proximal: 75 cm/s Right ulnar artery mid: 47 cm/s Right ulnar artery distal: 66 cm/s US/[place] [id number] IMPRESSION: 1. No evidence for major vessel occlusion or significant stenosis. 2. Other details discussed above.
--- NOTE | 2022-09-08 20:31 | USR_ITS ---
PROCEDURE INFORMATION: Exam: US Duplex Right Upper Extremity Veins, Limited Exam date and time: 09/08/2022 9:50 PM Age: 42 years old Clinical indication: Edema, localized; Upper extremity, right; Additional info: Swelling, assess for dvt, with finger pressures TECHNIQUE: Imaging protocol: Real-time duplex ultrasound of the right Upper Extremity with 2-D gallegos scale, color Doppler flow and spectral waveform analysis with image documentation. Limited exam focused on the right upper extremity veins. COMPARISON: No relevant prior studies available. FINDINGS: Evaluated veins include the right internal jugular, subclavian, axillary, brachial, basilic, cephalic, radial, and ulnar veins. No visible clot in the included veins. The included veins appear normally compressible. Duplex Doppler evaluation demonstrates flow in the evaluated veins. US/[place] [id number] IMPRESSION: No evidence of acute right upper extremity DVT.
[2022-09-08 21:33] LABS: Arterial Blood Gas Hematocrit 55.1 % (37-47); Base Excess ABG 2.6 mmol/L (-2.0-2.0); Blood Gas Sample Type Arterial; Carboxyhemoglobin 1.8 %THgb (0.4-20.1); HCO3 ABG 36.1 mmol/L (22-26); HGB O2 Sat 85.4 % (95-100); Ionized Calcium Level - ABG 1.2 mmol/L (1.1-1.4); Methemoglobin 0.4 % (0.4-1.5); Oxygen Saturation ABG 87.3; PO2 ABG 53.6 mmHg (80.0-100.0)
[2022-09-08 21:34] LABS: Alveolar-Arterial Oxygen Gradi 71.5 mmHg (5-10); Blood Gas Operator Identificat JB; Blood Gas Tidal Volume 0.55; Oxygen Device BIPAP
[2022-09-08 21:35] LABS: ABG PCO2 99.7 mmHg (35-45); ABG PH Result 7.17 (7.35-7.45)
[2022-09-08 21:35] LABS: ABG PCO2 96.7 mmHg (35-45); ABG PH Result 7.16 (7.35-7.45)
--- NOTE | 2022-09-08 21:50 | ANES.PROC ---
Anesthesia Procedures Procedure/Date: 09/08/22 Arterial Line: Time Out Performed: Yes Consent: emergency procedure Size (Gauge): 20 Technique Used: guide wire technique Post-Procedure: dry sterile dressing placed Patient Tolerated Procedure: well Complications: none Site: left and radial Additional Comments: CVL in progress on arrival right groin, attempted right femoral artery without success. Using ultrasound on left radial successful with 20g arrow kit.
[2022-09-08 22:05] LABS: Glucose Point of Care 108 mg/dL (70-110)
[2022-09-08] MEDS: norepinephrine 8 MG in dextrose 5 % 500 ML 53.34 MG IV (22:14)
[2022-09-08 22:20] LABS: ABG PH Result 7.22 (7.35-7.45); Alveolar-Arterial Oxygen Gradi 54.3 mmHg (5-10); Arterial Blood Gas Hematocrit 54.5 % (37-47); Base Excess ABG 1.4 mmol/L (-2.0-2.0); Blood Gas Operator Identificat JB; Blood Gas Sample Type Arterial; Blood Gas Tidal Volume 0.55; Carboxyhemoglobin 1.4 %THgb (0.4-20.1); HCO3 ABG 32.8 mmol/L (22-26); HGB O2 Sat 98.6 % (95-100); Ionized Calcium Level - ABG 1.2 mmol/L (1.1-1.4); Methemoglobin 0.4 % (0.4-1.5); Oxygen Device BIPAP; Oxygen Saturation ABG > 100.0; Total Hemoglobin 17.8 g/dL (12-16)
[2022-09-08 22:21] LABS: ABG PCO2 80.8 mmHg (35-45)
--- NOTE | 2022-09-08 22:31 | XRR_ITS ---
PROCEDURE INFORMATION: Exam: XR Chest Exam date and time: 09/08/2022 9:39 PM Age: 42 years old Clinical indication: Tachypnea; Additional info: Resp fail TECHNIQUE: Imaging protocol: Radiologic exam of the chest. Views: 1 view. COMPARISON: CR (CHEST, ) 09/07/2022 4:15 PM FINDINGS: Lungs: Poor inspiration somewhat limits evaluation, especially of the lung bases. Continued bilateral lung opacities, left slightly greater than right. The appearance is similar to the prior exam. Findings could represent pneumonia or asymmetric pulmonary edema. Please correlate clinically. Pleural spaces: No visible pneumothorax. No definite pleural fluid. Heart/Mediastinum: Stable cardiomegaly. Bones/joints: No significant acute finding. XR/XR chest 1V portable [id number] IMPRESSION: 1. Continued bilateral lung opacities, see above discussion. 2. Other findings discussed above.
[2022-09-08] MEDS: FUROsemide 10 mg/mL SDV 10mL 80 MG IVP (22:33)
[2022-09-09] VITALS (58 sets, daily range): BP systolic 104–139; BP diastolic 54–87; PULSE 73–92; RESP 1–24; TEMP 36.8–37.7; O2SAT 75–98
[2022-09-09] MEDS: heparin 5,000 unit/mL INJ 1 mL 5000 UNIT SUBCUT ×3 (01:46→17:52)
[2022-09-09 02:58] LABS: ABG PH Result 7.21 (7.35-7.45); Alveolar-Arterial Oxygen Gradi 26.9 mmHg (5-10); Arterial Blood Gas Hematocrit 53.8 % (37-47); Base Excess ABG 0.9 mmol/L (-2.0-2.0); Blood Gas Operator Identificat JB; Blood Gas Sample Site Not specified; Blood Gas Sample Type Arterial; Blood Gas Tidal Volume 0.55; Carboxyhemoglobin 1.6 %THgb (0.4-20.1); HCO3 ABG 32.1 mmol/L (22-26); HGB O2 Sat 95.9 % (95-100); Ionized Calcium Level - ABG 1.2 mmol/L (1.1-1.4); Methemoglobin 0.5 % (0.4-1.5); Oxygen Device BIPAP; Oxygen Saturation ABG 97.9; PO2 ABG 92.2 mmHg (80.0-100.0); Potassium Level - ABG 4.7 mmol/L (3.5-5.0); Total Hemoglobin 17.5 g/dL (12-16)
[2022-09-09 02:59] LABS: ABG PCO2 79.6 mmHg (35-45)
--- NOTE | 2022-09-09 03:55 | XRR_ITS ---
PROCEDURE INFORMATION: Exam: XR Chest Exam date and time: 09/09/2022 4:04 AM Age: 42 years old Clinical indication: Device placement; Ett placement (vent status); Patient HX: Et and ng tube placement. ; Additional info: Endotracheal tube placement TECHNIQUE: Imaging protocol: Radiologic exam of the chest. Views: 1 view. COMPARISON: CR (CHEST, ) 09/08/2022 9:39 PM FINDINGS: Tubes, catheters and devices: ET tube now present, tip about 2 cm above the maynor. Apparent NG tube passes beneath the diaphragm and presumably into the stomach. The tip of the tube is not included on this image. Lungs: Continued bilateral lung opacities, suspect some interval worsening. Findings could represent pulmonary edema or pneumonia. Pleural spaces: No visible pneumothorax. Suspect small bilateral pleural effusions. Heart/Mediastinum: Essentially stable prominent cardiomegaly. Bones/joints: No significant acute finding. XR/XR chest 1V portable [id number] IMPRESSION: 1. Tube documentation as above. 2. Continued bilateral lung opacities. 3. Suspect small bilateral pleural effusions. 4. Other findings discussed above.
[2022-09-09] MEDS: succinylcholine 20 mg/mL SDV 10mL 200 MG (04:00)
[2022-09-09] MEDS: propofol 10 mg/mL SDV 20 mL 200 MG (04:00)
[2022-09-09] MEDS: rocuronium 10 mg/mL INJ 5mL (04:00)
[2022-09-09] MEDS: propofol 1,000 MG/100 ML INJ 51.91 MG IV ×4 (04:00→09:45)
--- NOTE | 2022-09-09 04:39 | ANES.PROC ---
Anesthesia Procedures Procedure/Date: 09/09/22 Intubation: Time Out Performed: Yes Consent: requested by attending/covering physician (Dr Paiz), risks and benefits reviewed and patient agrees to proceed (pt with bipap and stated she agreed to proceed with intubation) Sedative (amount): other (Propofol 200mg) Paralytic (amount): succinylcholine (160mg) Laryngoscope: fiber optic video scope (glidescope 3) ET Tube Size: 8 ET Tube Uncuffed: Yes Tube Secured Depth (cm): 23 Tube Secured Location: lips Tube Placement Confirmation: visualized tube passing through cords, equal breath sounds bilaterally, no breath sounds over epigastrium, confirmation by capnometry and color change noted Patient Tolerated Procedure: well Intubation Complications: none Additional Comments: Hospitalist called to request intubation due to pt lethargy and ABG results. Pt noted to be lethargic. Yet once aroused and agreed to intubation, pt noted labored breathing on bipap with spo2 88-90. Pt tolerated procedure well. Pt placed on ventilator with settings per RT and hospitalist. Pt placed on propofol gtt per nursing. After 5 minutes pt began to cough against ventilator with poor TV noted. Pt given 50mg Rocuronium IVP with TV improved.
[2022-09-09 05:31] LABS: Basophils % 0.1 %; Eosinophils % 0.1 %; Hematocrit 61.1 % (37.0-47.0); Hemoglobin 17.6 g/dL (11.5-15.3); Lymphocytes # 1.3 10^3/uL (0.8-4.8); Lymphocytes % 7.8 %; Mean Corpuscular HGB Conc 28.8 g/dL (30.0-36.0); Mean Corpuscular Hemoglobin 27.5 pg (28.0-34.0); Mean Corpuscular Volume 95.5 fl (81-99); Mean Platelet Volume 10.3 fL (7.4-10.4); Monocytes # 0.9 10^3/uL (0.2-0.9); Monocytes % 5.5 %; Neutrophils # 14.49 10^3/uL (1.8-7.7); Nucleated Red Blood Cells % 0.1 %; Platelet Count 285 10^3/cmm (130-400); Red Cell Distribution Width 13.4 % (12.1-15.1); White Blood Count 16.8 10^3/uL (4.0-10.0)
--- NOTE | 2022-09-09 05:33 | USR_ITS ---
PROCEDURE INFORMATION: Exam: US Retroperitoneal; Complete; Kidneys and Bladder Exam date and time: 09/09/2022 5:43 AM Age: 42 years old Clinical indication: Condition or disease; Kidney or ureter condition; Acute renal insufficiency; Additional info: Carlos TECHNIQUE: Imaging protocol: Real-time ultrasound of the retroperitoneum with image documentation. Complete exam focused on the kidneys and bladder. COMPARISON: No relevant prior studies available. FINDINGS: The right kidney measures 13.3 cm in length. The left kidney measures 13.6 cm in length. There is no hydronephrosis or perinephric fluid. Neither ureter is visible or obviously dilated. The renal parenchymal thickness and echogenicity appear within normal limits for age. There is no sonographically visible renal calculus, mass, or cyst. Patient reportedly has a Cha catheter in the urinary bladder. The bladder is apparently empty and can not be evaluated at this time. US/US renal BI* [id number] IMPRESSION: 1. No hydronephrosis of either kidney. 2. Technologist notes somewhat limited evaluation of the kidneys, due to patient condition and body habitus. 3. Other details discussed above.
[2022-09-09 05:52] LABS: Alanine Aminotransferase 25 U/L (0-33); Albumin Level 3.4 g/dL (3.5-5.2); Alkaline Phosphatase 104 U/L (35-105); Anion Gap 15.4 (5-19); Aspartate Amino Transferase 108 U/L (0-32); Blood Urea Nitrogen 32 mg/dL (6-20); Calcium 8.7 mg/dL (8.5-10.5); Carbon Dioxide 32 mmol/L (22-29); Chloride 95 mmol/L (98-107); Globulin 3.4 g/dL (1.3-4.6); Glomerular Filtration Rate 17.1 mL/min (90-130); Glucose 125 mg/dL (65-115); Osmolality Calculated 292 mOsm/kg (285-295); Potassium 5.4 mmol/L (3.5-5.1); Sodium 137 mmol/L (136-145); Total Protein 6.8 g/dL (6.6-8.7)
[2022-09-09] MEDS: FUROsemide 100 MG in sodium chloride 0.9% 40 ML 10 MG IV (05:53)
[2022-09-09 06:03] LABS: ABG PCO2 50.3 mmHg (35-45); ABG PH Result 7.36 (7.35-7.45); Arterial Blood Gas Hematocrit 54.6 % (37-47); Blood Gas Operator Identificat JB; Blood Gas Sample Site Not specified; Blood Gas Sample Type Arterial; HCO3 ABG 28.6 mmol/L (22-26); Oxygen Device VENT; PO2 ABG 65.3 mmHg (80.0-100.0)
--- NOTE | 2022-09-09 07:12 | P.CONIM_ITS ---
Providers/Reason For Consult Consulting Physician/Specialty*: Samara Sanchez DO, telenephrology Reason for Consult*: Acute kidney injury Requesting Physician: Conrad Paiz MD Attending Physician: Mariusz Velasquez MD Primary Care Provider: Isacc Cisneros History of Present Illness History of Present Illness Le Almaraz is a 42 year old female transferred from another hospital for evaluation/treatment hypertensive emergency, pulmonary edema. Was on ACEi. Initially treated with nitroprusside, then nicardipine. Receiving vancomycin and pip/tazo for pneumonia. Became hypotensive 09/07/22. Serum Cr 0.5 mg/dL on admission, urine output 2.5L first 24h. Had CTA 09/06/22. Rising serum Cr, decreasing urine output developed 09/07-09/08. Review of Systems General: Reports: ROS unobtainable due to endotracheal tube Medications/Allergies Home Medications Medication Instructions Recorded Confirmed Last Taken Type No Known Home Medications 09/07/22 09/07/22 Unknown History Allergies Allergy/AdvReac Type Severity Reaction Status Date / Time No Known Allergies Allergy Verified 09/07/22 07:55 Current Medications Generic Name Dose Route Start Last Admin Trade Name Freq PRN Reason Stop Dose Admin Acetaminophen 650 mg 09/06/22 10:41 09/07/22 04:50 Acetaminophen 325 Mg Tablet PO 650 mg Q6H PRN Administration Mild/Mod Pain Or Temp >/= 101 Amlodipine Besylate 10 mg 09/06/22 10:45 09/07/22 08:26 Amlodipine 10 Mg Tablet PO 10 mg DAILY [place] Administration Heparin Sodium (Porcine) 5,000 unit 09/06/22 10:45 09/09/22 01:46 Heparin 5,000 Unit/Ml Inj 1 Ml SUBCUT 5,000 unit Q8H [place] Administration Hydrochlorothiazide 25 mg 09/06/22 11:00 09/07/22 08:26 Hydrochlorothiazide 25 Mg Tablet PO 25 mg DAILY [place] Administration Norepinephrine Bitartrate 4 mg 254 mls @ 0 mls/hr 09/07/22 22:30 09/08/22 13:45 / Dextrose IV Infused .Q0M ST[place] Titration Protocol Per Protocol Piperacillin Sod/Tazobactam 50 mls @ 12.5 mls/hr 09/08/22 08:30 09/09/22 05:19 Sod 3.375 gm/ Sodium Chloride IV Infused Q8H ST[place] Infusion Protocol Vancomycin HCl 2,000 mg/ 500 mls @ 250 mls/hr 09/08/22 09:30 09/09/22 04:56 Sodium Chloride IV 250 mls/hr Q18H [place] Administration Norepinephrine Bitartrate 8 mg 508 mls @ 0 mls/hr 09/08/22 11:30 09/09/22 04:00 / Dextrose IV 10 mcg/min .Q0M STER[place]ING 38.1 mls/hr Titration Protocol Per Protocol Sodium Chloride 1,000 mls @ 100 mls/hr 09/08/22 14:45 09/08/22 15:09 Sodium Chloride 0.9% IV 100 mls/hr .Q10H ST[place] Administration Propofol 1,000 mg in 100 mls @ 0 mls/hr 09/09/22 03:45 09/09/22 05:53 Diprivan IV 50 mcg/kg/min .Q0M STER[place]ING 51.91 mls/hr Administration Protocol Per Protocol Fentanyl 2,500 mcg/ Sodium 250 mls @ 0 mls/hr 09/09/22 04:45 09/09/22 05:30 Chloride IV 50 mcg/hr .Q0M STER[place]ING 5 mls/hr Titration Protocol Per Protocol Furosemide 100 mg/ Sodium 50 mls @ 0 mls/hr 09/09/22 05:30 09/09/22 05:53 Chloride IV 20 mg/hr .Q0M STER[place]ING 10 mls/hr Administration Protocol Per Protocol Ondansetron HCl 4 mg 09/06/22 10:41 09/08/22 16:34 Ondansetron 2 Mg/Ml Sdv 2 Ml IVP 4 mg Q8H PRN Administration vomiting, or N/V if npo PFSH Acute PFSH: Medical History (Updated 09/09/22 @ 07:47 by Samara Sanchez DO) CHF (congestive heart failure) Essential hypertension Hypertension screen Hypoxia Medication management Polycystic ovarian disease Vitamin D deficiency Surgical History S/P cholecystectomy S/P D&C (status post dilation and curettage) S/P tubal ligation Social History Smoking and tobacco status: former smoker Quit status (tobacco): has quit using tobacco Second hand smoke exposure: No Smoking risk assessment/counseling performed?: No Alcohol intake: never Desire information about alcohol rehabilitation?: No Counseling given: No Desire information about substance/drug rehabilitation?: No Counseling given: No Vitals/I&O/Wt Last Vital Signs Temp 97 F L 09/08/22 17:00 Pulse 78 09/09/22 04:30 Resp 24 H 09/09/22 06:09 BP 111/75 09/08/22 19:30 Pulse Ox 92 09/09/22 06:09 O2 Del Method 09/08/22 09:00 O2 Flow Rate 6 09/08/22 09:00 FiO2 60 09/09/22 06:09 09/08/22 09/09/22 09/09/22 22:59 06:59 14:59 Intake Total 1678.100 / 2962.415 360.733 / 3323.148 Output Total 85 / 85 Balance 1678.100 / 2962.415 275.733 / 3238.148 Weight last 48 hrs Weight 173.017 kg Physical Exam Urinary Catheter Management: Cha: Cath Placed During This Visit: yes Reason for Continuing Indwelling Catheter: Accurate Measurement of Urinary Outpu t in Critically Ill Patients Urinary Catheter Date of Insertion: 09/08/22 Urinary Catheter Time of Insertion: 10:29 Data 09/09/22 05:00 09/09/22 05:00 Other Labs: AST 108, albumin 3.4, calcium 8.7 normal eos CK 975 urinalysis +WBC, +RBC, urine Na 93 on diuretic Micro: Microbiology 09/09/22 01:10 Legionella Urinary Antigen - Final Urine Catheterized 09/08/22 09:06 Blood Culture - Preliminary Blood SPECIMEN COLLECTED 09/08/22 09:08 Blood Culture - Preliminary Blood SPECIMEN COLLECTED Echo: Radiologist's impression: 1-Normal left ventricular size, systolic function and wall?thickness, with no regional wall motion abnormalities. Left?ventricular ejection fraction is est imated at 60 %. Grade I/IV?diastolic dysfunction (abnormal relaxation filling pattern),?normal to mildly elevated filling pressures. ? ?2-Aortic, tricuspid, pulmonary and mitral valves were not well visualized due to suboptimal images probably normal ?3-There is no pericardial effusion. ?4-There are no prior echocardiogram studies to compare. US: Radiologist's impression: The right kidney measures 13.3 cm in length. ?The left kidney measures 13.6 cm in length. ?There is no hydronephrosis or perinephric fluid. ?Neither ureter is visible or obviously dilated. ?The renal parenchymal thickness and echogenicity appear within normal limits for age. ?There is no sonographically visible renal calculus, mass, or cyst. CXR: Radiologist's impression: Lungs: Continued bilateral lung opacities, suspect some interval worsening. Findings could represent pulmonary edema or pneumonia. ABG Interpretation 1: 09/08/22 09/08/22 09/08/22 15:57 17:25 21:20 ABG pH 7.15 L* 7.16 L* 7.17 L* ABG pCO2 101.0 H* 96.7 H* 99.7 H* ABG pO2 79.1 L 84.6 53.6 L ABG HCO3 35.5 H 34.7 H 36.1 H ABG O2 Saturation 96.2 97.1 87.3 ABG Base Excess 1.9 1.6 2.6 H 09/08/22 09/09/22 09/09/22 22:08 02:45 05:50 ABG pH 7.22 L 7.21 L 7.36 ABG pCO2 80.8 H* 79.6 H* 50.3 H ABG pO2 202.0 H 92.2 65.3 L ABG HCO3 32.8 H 32.1 H 28.6 H ABG O2 Saturation > 100.0 97.9 ABG Base Excess 1.4 0.9 2.0 Other data: seen and examined via telemedicine with assistance of RN at bedside A&P Assessment and plan (1) Acute kidney injury: Plan 1. Acute oligoanuric kidney injury. Different includes contrast nephropathy, sepsis, acute interstitial nephritis, hemodynamic 2. Hyperkalemia 3. Morbid obesity 4. Primary respiratory acidosis, hypercapneic respiratory failure on ventilator Recommend: repeat BMP later today. discontinue vanco (received 2 grams today), reduce pip/tazo to 2.25g Q8h. Presently receiving bumex 2mg/hr IV. Recommend discontinue after 4h. vanco level tomorrow. I spoke with sister at bedside. Will follow-up later today. Consult Attestations Medical Necessity Statement: critically ill in ICU Time Spent in Patient Care: Greater than 35 minutes Procedures Arterial Line Size (Gauge): 20 Coding Level of Care Code Acute Code for Chg Fwd Diagnoses Acute kidney injury N17.9
--- NOTE | 2022-09-09 07:24 | PC.NURSE ---
recieved after report et tube to vent tv 400 fio2 60 peep 6 lungs very diminished breath sound noted sedated on vent does respond to stimuli ng tube clamped . skin cool to touch clammy and mottled right hand whitish discoloration and welping noted old iv site elevated at this time . long scant urine dark black sediment noted right femoral line in place at this time with levophed , fent, and diprivan and lasix infusing .. family in for visit
[2022-09-09] MEDS: ipratropium-albuterol 3 mL Neb INHALATION ×3 (07:29→19:50)
[2022-09-09] MEDS: piperacillin-tazobactam 3.375 GM in sodium chloride 0.9% (plus) 50 ML IV ×3 (08:16→20:33)
[2022-09-09 08:38] LABS: Creatine Phosphokinase 975 U/L (26-192)
[2022-09-09 08:48] LABS: Glucose Point of Care 88 mg/dL (70-110)
[2022-09-09 08:57] LABS: Bacteria Urine 1+ /hpf; Bilirubin Urine Neg (Negative); Blood Urine 3+ (Negative); Glucose Urine UA Norm (Normal); Ketones Urine Negative (Negative); Leukocyte Esterase Urine 1+ (Negative); Nitrate Urine Negative (Negative); Protein Urine 2+ (Negative); RBC Urine 50-80 /hpf (0-2); Specific Gravity, Urine 1.015 (1.005-1.030); Urine Appearance Hazy (CLEAR); Urine Color Dark Yellow (Yellow); Urobilinogen Urine Norm (Negative); WBC Urine 15-25 /hpf (0-5); pH Urine 5 (5-7)
[2022-09-09 08:58] LABS: Add Urine Culture? Yes
[2022-09-09 09:04] LABS: Creatinine Urine, Random 51 mg/dL (28-217); Urine Random Sodium 93 mmol/L
[2022-09-09] MEDS: bumetanide 25 MG in empty flexible container 1 EACH 8 MG IV (09:07)
[2022-09-09 09:10] LABS: CKMB Relative Index 14.9 % (0.0-10.4)
--- NOTE | 2022-09-09 11:06 | PC.NURSE ---
weaned off levophed gtt at this time complete bath done and lotion applied small amt of urine output noted right hand elevated at this time warm pack on hand .. slowly weaning sedation
--- NOTE | 2022-09-09 12:20 | PC.NURSE ---
reposition oral care done remains off levophed and urine output increase slowly.. manual pressure checked compared art line . right hand remains elevated family at bedside
[2022-09-09] MEDS: propofol 1,000 MG/100 ML INJ 31.14 MG IV ×4 (12:37→23:02)
--- NOTE | 2022-09-09 13:01 | PC.NURSE ---
monitor art line with only check manual of blood pressure as swelling and ulcerations of arms and hand remain off levophed at this time. bumex off after 4 hrs per order
--- NOTE | 2022-09-09 13:17 | PM.PN ---
Subjective Subjective: Patient was seen and examined this morning she had to be intubated overnight as she was lethargic, currently she is intubated sedated on mechanical ventilation. minimum urine output overnight, Levophed requirement is coming down. Medications: Medication Review Details: Generic Name Dose Route Start Last Admin Trade Name Freq PRN Reason Stop Dose Admin Acetaminophen 650 mg 09/06/22 10:41 09/07/22 04:50 Acetaminophen 32 5 Mg Tablet PO 650 mg Q6H PRN Administration Mild/Mod Pain Or Temp >/= 101 Albuterol/Ipratrop ium 3 ml 09/06/22 10:45 09/09/22 07:29 Ipratropium-Albu terol 3 Ml Neb INHALATION 3 ml Q6H.RESP PRN Administration SHORTNESS OF KVNG TH Heparin Sodium (Po rcine) 5,000 unit 09/06/22 10:45 09/09/22 11:11 Heparin 5,000 Un it/Ml Inj 1 Ml SUBCUT 5,000 unit Q8H [facility] Administration Norepinephrine Bit artrate 4 mg 254 mls @ 0 mls/h r 09/07/22 22:30 09/08/22 13:45 / Dextrose IV Infused .Q0M [facility] Titration Protocol Per Protocol Norepinephrine Bit artrate 8 mg 508 mls @ 0 mls/h r 09/08/22 11:30 09/09/22 10:04 / Dextrose IV 0 mcg/min .Q0M ST[facility] 0 mls/hr Titration Protocol Per Protocol Propofol 1,000 mg in 100 m ls @ 0 mls/hr 09/09/22 03:45 09/09/22 12:37 Diprivan IV 20 mcg/kg/min .Q0M [facility] 20.76 mls/hr Titration Protocol Per Protocol Fentanyl 2,500 mcg / Sodium 250 mls @ 0 mls/h r 09/09/22 04:45 09/09/22 10:14 Chloride IV 40 mcg/hr .Q0M [facility] 4 mls/hr Titration Protocol Per Protocol Bumetanide 25 mg/ N/A 100 mls @ 8 mls/h r 09/09/22 08:30 09/09/22 09:07 IV 2 mg/hr .[id number] ST[facility]ING 8 mls/hr Administration 2 MG/HR Ondansetron HCl 4 mg 09/06/22 10:41 09/08/22 16:34 Ondansetron 2 Mg /Ml Sdv 2 Ml IVP 4 mg Q8H PRN Administration vomiting, or N/V if npo Vitals/I&O/Wt Last Vital Signs Temp 98.9 F 09/09/22 12:12 Pulse 81 09/09/22 12:12 Resp 24 H 09/09/22 12:12 BP 137/85 09/09/22 12:12 Pulse Ox 94 09/09/22 12:12 O2 Del Method 09/09/22 10:30 O2 Flow Rate 6 09/08/22 09:00 FiO2 50 09/09/22 12:00 09/08/22 09/09/22 09/09/22 22:59 06:59 14:59 Intake Total 1678.100 / 2962.415 360.733 / 3323.148 2047.901 / 2047.901 Output Total 85 / 85 325 / 325 Balance 1678.100 / 2962.415 275.733 / 3238.148 1722.901 / 1722.901 Weight last 48 hrs Weight 173.017 kg Physical Exam Narrative: Intubated sedated on mechanical ventilation. HENMT: COMMON NORMALS: normocephalic, atraumatic and hearing grossly normal bilaterally HEAD & SCALP: normocephalic and atraumatic Resp: COMMON NORMALS: clear to auscultation bilaterally AUSCULTATION: clear to auscultation bilaterally OTHER: Diminished air entry bilaterally Cardio: COMMON NORMALS: regular rate, regular rhythm, S1 normal heart sound present, S2 normal heart sound present, No gallops present (Cardio), No murmurs present (Cardio), No rub (Cardio) and Peripheral pulses 2+ throughout RATE: regular rate RHYTHM: regular rhythm HEART SOUNDS: S1 normal heart sound present and S2 normal heart sound present PERIPHERAL PULSES: Peripheral pulses 2+ throughout GI: COMMON NORMALS: Normal to inspection, nondistended, normoactive bowel sounds present, Soft to palpation, non-tender, No hepatosplenomegaly present and no masses AUSCULTATION: Yes normoactive bowel sounds PALPATION: Yes Soft to palpation and Yes No hepatosplenomegaly present RECTAL EXAM: deferred Extremity: COMMON NORMALS: no clubbing, cyanosis or edema and no pedal edema Urinary Catheter Management: Cha: Cath Placed During This Visit: yes Reason for Continuing Indwelling Catheter: Accurate Measurement of Urinary Output in Critically Ill Patients Urinary Catheter Date of Insertion: 09/08/22 Urinary Catheter Time of Insertion: 10:29 Data 09/09/22 05:00 09/09/22 05:00 Micro: Microbiology 09/08/22 09:00 MRSA Culture - Final Nose 09/09/22 04:45 Gram Stain - Final Sputum - Endotracheal Tube Aspirate 09/09/22 01:10 Bacterial Antigens - Final Urine,Clean Catch 09/08/22 09:08 Blood Culture - Preliminary Blood NEGATIVE TO DATE 09/08/22 09:06 Blood Culture - Preliminary Blood NEGATIVE TO DATE 09/09/22 01:10 Legionella Urinary Antigen - Final Urine Catheterized A&P Assessment and plan (1) Hypertensive emergency: (2) Flash pulmonary edema: (3) Hypoxia: (4) Diarrhea: (5) Pneumonia: (6) Sepsis: Plan 42 year old female with known past medical history of hypertension noncompliant with antihypertensive medication, morbid obesity, was accepted as a direct transfer, she was initially admitted for the management of substernal chest pain, associated with acute onset of worsening shortness of breath. Assessment: Sepsis secondary to hospital-acquired pneumonia: Possible C. difficile diarrhea. Patient currently meets sepsis criteria: Has elevated white cell count, hypotensive, increasing oxygen requirement, need for vasopressor support, x-ray chest showing possible infiltrates. Patient currently has received cautious IV fluid bolus of 1 L, and has also been started on maintenance IV fluid, with closely monitor intake output charting as well as volume status, his chest x-ray is also suggestive of pulmonary vascular congestion. Follow blood culture, urine culture, MRSA PCR C. difficile PCR, urine Legionella antigen bacterial antigen panel sputum Gram stain and culture, currently she has been empirically started on broad-spectrum antibiotic Vanco and Zosyn. Hypertensive emergency with flash pulmonary edema: Resolved CTA chest was done which ruled out pulmonary embolism, showed pulmonary vascular congestion, troponin trend was unremarkable, x-ray chest: Suggestive of pulmonary vascular congestion. Currently she has been started on nicardipine drip.nitro/ nitroprusside drip has not been used as the patient was complaining of bad headache after being started on nitroprusside drip. Current goal is to reduce blood pressure by 25% in first 1 to 2 hours from the baseline blood pressure and thereafter continue with gradual blood pressure reduction. She has been started on amlodipine lisinopril hydrochlorothiazide , later clonidine as well as hydralazine was added for better blood pressure control. Antihypertensive medication has been kept on hold. Continue telemetry monitoring. Respiratory failure with hypoxia and hypercapnia: Likely secondary to radha/ohs, pneumonia. ABG: pH: 7.15, PCO2 101, PO2 79, on 6 L She was initially placed on AVAPS, but had to be intubated overnight, as she was extremely somnolent and lethargic. Continue mechanical ventilation for now Continue DuoNebs Monitor ABG Monitor x-ray chest Rare possibility of: Nicardipine which is is a calcium channel prakash toxicity exist: For now we will give her 1 dose of calcium gluconate, 1 dose of glucagon We will manage symptomatically with Levophed and vasopressin, if needed epi. Closely monitor fingerstick glucose. BRIDGETTE : Possibly secondary to ATN secondary to sepsis, in the setting of acute hypotension, possible loss of autoregulation in the setting of acute hypotension, could be possibly secondary to antihypertensive effects. Possible contrast-induced nephropathy as she has received a CTA recently, possible AIN Admission serum creatinine was: 0.5 Current serum creatinine is 1.9 Monitor BMP Monitor intake output charting Avoid nephrotoxic's Has received IV fluid boluses 3 Ls Renal ultrasound has shown: No hydronephrosis of either kidney. Has received multiple doses of IV lasix, and was later started on Lasix drip, has been switched to Bumex drip as she was not responding appropriately to Lasix Currently she has started making urine Monitor urine electrolytes Nephrology on board Hyperkalemia with serum potassium of 5.2: Monitor sports agent repeat BMP Continue telemetry monitoring Right upper extremity swelling: Right upper extremity Doppler were negative for DVT Right upper extremity arterial duplex negative for: major vessel occlusion or significant stenosis. Chest pain: Could be related to hypertensive emergency. Troponin trend is unremarkable Monitor EKG 2D echo: Normal LV size systolic function and wall thickness with no RWMA, LVEF estimated 60%, grade 1 diastolic dysfunction. Follow x-ray chest Pulmonary edema: Has received IV diuretics CODE STATUS: Full code DVT prophylaxis: On heparin subacute Attestations Medical Necessity Statement*: Needs to be in hospital for management of bridgette, respiratory failure , Critical Care Time: The high probability of a clinically significant, sudden or life threatening deterioration of the patient's [] system(s) required my full and direct attention, intervention and personal management. The critical care time is as shown. This time is in addition to time spent performing any reported procedures but includes the following: [x] Data and vital sign review and interpretation [x] Patient assessment, examination and intervention [x] Documentation [x] Medication orders and management Critical Care Time (min): 90 Procedures Arterial Line Size (Gauge): 20 Coding Level of Care Code Critical Care >/= 30 minutes Diagnoses Hypertensive emergency I16.1 Flash pulmonary edema J81.0 Hypoxia R09.02 Diarrhea R19.7 Pneumonia J18.9 Sepsis A41.9
[2022-09-09 15:45] LABS: Glucose Point of Care 95 mg/dL (70-110)
[2022-09-09 16:24] LABS: Anion Gap 16.8 (5-19); Blood Urea Nitrogen 39 mg/dL (6-20); Calcium 8.4 mg/dL (8.5-10.5); Carbon Dioxide 27 mmol/L (22-29); Chloride 98 mmol/L (98-107); Glomerular Filtration Rate 17.1 mL/min (90-130); Glucose 103 mg/dL (65-115); Osmolality Calculated 294 mOsm/kg (285-295); Potassium 4.8 mmol/L (3.5-5.1); Sodium 137 mmol/L (136-145)
--- NOTE | 2022-09-09 16:42 | PC.NURSE ---
Dr Adames called aware lab some improvement noted
[2022-09-09 20:13] LABS: Glucose Point of Care 103 mg/dL (70-110)
[2022-09-09] MEDS: bumetanide 0.25 mg/mL SDV 4 mL 1 MG IVP (21:34)
[2022-09-10] VITALS (48 sets, daily range): BP systolic 108–157; BP diastolic 60–91; PULSE 71–93; RESP 20–22; O2SAT 88–96
[2022-09-10 01:03] LABS: Glucose Point of Care 98 mg/dL (70-110)
[2022-09-10] MEDS: heparin 5,000 unit/mL INJ 1 mL 5000 UNIT SUBCUT ×3 (02:08→20:02)
[2022-09-10] MEDS: propofol 1,000 MG/100 ML INJ 31.14 MG IV ×6 (02:08→21:30)
[2022-09-10] MEDS: ipratropium-albuterol 3 mL Neb INHALATION ×4 (03:18→20:08)
[2022-09-10 04:19] LABS: Basophils # 0.1 10^3/uL (0.0-0.1); Basophils % 0.4 %; Eosinophils % 0.2 %; Hematocrit 52.7 % (37.0-47.0); Hemoglobin 16.3 g/dL (11.5-15.3); Lymphocytes # 2.5 10^3/uL (0.8-4.8); Lymphocytes % 20.7 %; Mean Corpuscular HGB Conc 30.9 g/dL (30.0-36.0); Mean Corpuscular Hemoglobin 27.9 pg (28.0-34.0); Mean Corpuscular Volume 90.2 fl (81-99); Mean Platelet Volume 10.3 fL (7.4-10.4); Monocytes # 0.9 10^3/uL (0.2-0.9); Monocytes % 7.4 %; Neutrophils # 8.71 10^3/uL (1.8-7.7); Nucleated Red Blood Cells % 0 %; Platelet Count 199 10^3/cmm (130-400); Red Blood Count 5.84 10^6/uL (4.1-5.3); White Blood Count 12.3 10^3/uL (4.0-10.0)
[2022-09-10 04:44] LABS: Alanine Aminotransferase 21 U/L (0-33); Alkaline Phosphatase 75 U/L (35-105); Anion Gap 16.9 (5-19); Aspartate Amino Transferase 45 U/L (0-32); Blood Urea Nitrogen 50 mg/dL (6-20); Calcium 8.8 mg/dL (8.5-10.5); Carbon Dioxide 31 mmol/L (22-29); Chloride 96 mmol/L (98-107); Creatine Phosphokinase 225 U/L (26-192); Glomerular Filtration Rate 11.9 mL/min (90-130); Glucose 91 mg/dL (65-115); Osmolality Calculated 301 mOsm/kg (285-295); Potassium 4.9 mmol/L (3.5-5.1); Sodium 139 mmol/L (136-145); Total Bilirubin 0.6 mg/dL (0.15-1.2)
[2022-09-10 05:36] LABS: CKMB 14.9 ng/mL (0-5.34); CKMB Relative Index 6.6 % (0.0-10.4)
[2022-09-10] MEDS: piperacillin-tazobactam 2.25 GM in sodium chloride 0.9% (plus) 50 ML IV ×2 (07:58→16:09)
[2022-09-10 08:22] LABS: Glucose Point of Care 80 mg/dL (70-110)
--- NOTE | 2022-09-10 08:30 | PM.PN ---
Subjective Subjective: awake, off pressors Vitals/I&O/Wt Last Vital Signs Temp 99.8 F H 09/09/22 20:00 Pulse 82 09/10/22 08:15 Resp 20 H 09/10/22 08:15 BP 127/63 09/10/22 04:00 Pulse Ox 94 09/10/22 08:15 O2 Del Method 09/10/22 08:15 O2 Flow Rate 6 09/08/22 09:00 FiO2 45 09/10/22 08:15 09/09/22 09/10/22 09/10/22 22:59 06:59 14:59 Intake Total 222.666 / 2346.968 237.359 / 2584.327 Output Total 625 / 950 550 / 1500 Balance -402.334 / 1396.968 -312.641 / 1084.327 Weight last 48 hrs Weight 175 kg Physical Exam Extremity: NARRATIVE EXTREMITY EXAM: 3+ edema, redness Urinary Catheter Management: Cha: Cath Placed During This Visit: yes Reason for Continuing Indwelling Catheter: Accurate Measurement of Urinary Output in Critically Ill Patients Urinary Catheter Date of Insertion: 09/08/22 Urinary Catheter Time of Insertion: 10:29 Data 09/10/22 03:30 09/10/22 03:30 Other Labs: Ca 8.8, CK 225 vanoc 29 Micro: Microbiology 09/08/22 09:00 MRSA Culture - Final Nose 09/09/22 04:45 Gram Stain - Final Sputum - Endotracheal Tube Aspirate 09/09/22 01:10 Bacterial Antigens - Final Urine,Clean Catch 09/08/22 09:08 Blood Culture - Preliminary Blood NEGATIVE TO DATE 09/08/22 09:06 Blood Culture - Preliminary Blood NEGATIVE TO DATE urine culture no growth Other data: seen via telemedicine with assistance of RN at bedside A&P Assessment and plan (1) Acute kidney injury: Plan 1. Acute oligoanuric kidney injury. Different includes contrast nephropathy, sepsis, acute interstitial nephritis, hemodynamic. Urine output improving 2. Volume overload: continue IV bumex 1 mg Q12h 3. Primary respiratory acidosis, hypercapneic respiratory failure on ventilator, FIO2 requirements lower Recommend: continue to hold vanco, check level daily. Attestations Medical Necessity Statement*: critically ill in ICU Time Spent in Patient Care: 16 - 35 minutes Procedures Arterial Line Size (Gauge): 20 Coding Level of Care Code Acute Code for Chg Fwd Diagnoses Acute kidney injury N17.9
[2022-09-10 08:43] LABS: ABG PCO2 54.9 mmHg (35-45); ABG PH Result 7.35 (7.35-7.45); Arterial Blood Gas Hematocrit 51.6 % (37-47); Base Excess ABG 2.6 mmol/L (-2.0-2.0); Blood Gas Operator Identificat CAK; Blood Gas Sample Site ARTLINE; Blood Gas Sample Type Arterial; Carboxyhemoglobin 1.2 %THgb (0.4-20.1); HCO3 ABG 29.9 mmol/L (22-26); HGB O2 Sat 94.4 % (95-100); Ionized Calcium Level - ABG 1.1 mmol/L (1.1-1.4); Methemoglobin 0.6 % (0.4-1.5); Oxygen Device VENT; Oxygen Saturation ABG 96.1; PO2 ABG 81.8 mmHg (80.0-100.0); Potassium Level - ABG 4.5 mmol/L (3.5-5.0); Total Hemoglobin 16.8 g/dL (12-16)
--- NOTE | 2022-09-10 09:28 | PC.NURSE ---
repositioned awake able to respond to questions right hand elevated on pillows blister to area remains , legs elevated lotion applied cellulites remains red and warm to touch . femoral line right groin area cleansed difficult due to abdomen pendulous long with jean urine noted .
[2022-09-10 09:32] LABS: Vancomycin Random 29.2 ug/mL (20.0-40.0)
--- NOTE | 2022-09-10 12:06 | P.PN_ITS ---
Subjective Subjective: Patient was seen and examined this morning, urine output has improved, serum creatinine has trended up, possibly appears to be peaking, hopefully serum creatinine should improve with appropriate diuresis. she is currently off vasopressors, requiring minimal ventilator support, white blood cell count is trending down, has been afebrile. A.m. ABG has been reviewed. Current plan is to continue with IV diuresis. Medications: Medication Review Details: Generic Name Dose Route Start Last Admin Trade Name Freq PRN Reason Stop Dose Admin Acetaminophen 650 mg 09/06/22 10:41 09/07/22 04:50 Acetaminophen 32 5 Mg Tablet PO 650 mg Q6H PRN Administration Mild/Mod Pain Or Temp >/= 101 Albuterol/Ipratrop ium 3 ml 09/06/22 10:45 09/10/22 08:21 Ipratropium-Albu terol 3 Ml Neb INHALATION 3 ml Q6H.RESP PRN Administration SHORTNESS OF KVNG TH Chlorhexidine Gluc millie 1 applic 09/10/22 01:00 09/10/22 04:17 Chlorhexidine Gl uconate 4% Btl 118 Ml TOPICAL Not Given 0100 [facility] Heparin Sodium (Po rcine) 5,000 unit 09/06/22 10:45 09/10/22 11:01 Heparin 5,000 Un it/Ml Inj 1 Ml SUBCUT 5,000 unit Q8H [facility] Administration Norepinephrine Bit artrate 4 mg 254 mls @ 0 mls/h r 09/07/22 22:30 09/08/22 13:45 / Dextrose IV Infused .Q0M [place] Titration Protocol Per Protocol Norepinephrine Bit artrate 8 mg 508 mls @ 0 mls/h r 09/08/22 11:30 09/09/22 10:04 / Dextrose IV 0 mcg/min .Q0M [facility] 0 mls/hr Titration Protocol Per Protocol Propofol 1,000 mg in 100 m ls @ 0 mls/hr 09/09/22 03:45 09/10/22 08:33 Diprivan IV 30 mcg/kg/min .Q0M [place] 31.14 mls/hr Administration Protocol Per Protocol Fentanyl 2,500 mcg / Sodium 250 mls @ 0 mls/h r 09/09/22 04:45 09/09/22 13:56 Chloride IV 30 mcg/hr .Q0M [facility] 3 mls/hr Titration Protocol Per Protocol Piperacillin Sod/T azobactam 50 mls @ 12.5 mls /hr 09/10/22 08:00 09/10/22 07:58 Sod 2.25 gm/ Sod ium Chloride IV 12.5 mls/hr Q8H [facility] Administration Ondansetron HCl 4 mg 09/06/22 10:41 09/08/22 16:34 Ondansetron 2 Mg /Ml Sdv 2 Ml IVP 4 mg Q8H PRN Administration vomiting, or N/V if npo Vitals/I&O/Wt Last Vital Signs Temp 99.8 F H 09/09/22 20:00 Pulse 84 09/10/22 09:00 Resp 20 H 09/10/22 11:00 BP 124/81 09/10/22 09:00 Pulse Ox 94 09/10/22 11:00 O2 Del Method 09/10/22 08:15 O2 Flow Rate 6 09/08/22 09:00 FiO2 40 09/10/22 11:00 09/09/22 09/10/22 09/10/22 22:59 06:59 14:59 Intake Total 222.666 / 2346.968 337.359 / 2684.327 Output Total 625 / 950 550 / 1500 Balance -402.334 / 1396.968 -212.641 / 1184.327 Weight last 48 hrs Weight 175 kg Physical Exam Narrative: Intubated sedated on mechanical ventilation. Off sedation GCS is 13 T, off sedation she is awake and alert HENMT: COMMON NORMALS: normocephalic, atraumatic and hearing grossly normal bilaterally HEAD & SCALP: normocephalic and atraumatic Resp: COMMON NORMALS: clear to auscultation bilaterally AUSCULTATION: clear to auscultation bilaterally OTHER: Diminished air entry bilaterally Cardio: COMMON NORMALS: regular rate, regular rhythm, S1 normal heart sound present, S2 normal heart sound present, No gallops present (Cardio), No murmurs present (Cardio), No rub (Cardio) and Peripheral pulses 2+ throughout RATE: regular rate RHYTHM: regular rhythm HEART SOUNDS: S1 normal heart sound present and S2 normal heart sound present PERIPHERAL PULSES: Peripheral pulses 2+ throughout GI: COMMON NORMALS: Normal to inspection, nondistended, normoactive bowel sounds present, Soft to palpation, non-tender, No hepatosplenomegaly present and no masses AUSCULTATION: Yes normoactive bowel sounds PALPATION: Yes Soft to palpation and Yes No hepatosplenomegaly present RECTAL EXAM: deferred Extremity: COMMON NORMALS: no clubbing, cyanosis or edema and no pedal edema Urinary Catheter Management: Cha: Cath Placed During This Visit: yes Reason for Continuing Indwelling Catheter: Accurate Measurement of Urinary Output in Critically Ill Patients Urinary Catheter Date of Insertion: 09/08/22 Urinary Catheter Time of Insertion: 10:29 Data 09/10/22 03:30 09/10/22 03:30 Micro: Microbiology 09/09/22 04:45 Gram Stain - Final Sputum - Endotracheal Tube Aspirate Sputum Culture - Preliminary 09/09/22 01:10 Urine Culture - Preliminary Urine,Clean Catch 09/08/22 09:00 MRSA Culture - Final Nose 09/09/22 01:10 Bacterial Antigens - Final Urine,Clean Catch 09/08/22 09:08 Blood Culture - Preliminary Blood NEGATIVE TO DATE 09/08/22 09:06 Blood Culture - Preliminary Blood NEGATIVE TO DATE A&P Assessment and plan (1) Hypertensive emergency: (2) Flash pulmonary edema: (3) Hypoxia: (4) Diarrhea: (5) Pneumonia: (6) Sepsis: Plan 42 year old female with known past medical history of hypertension noncompliant with antihypertensive medication, morbid obesity, was accepted as a direct transfer, she was initially admitted for the management of substernal chest pain, associated with acute onset of worsening shortness of breath. Assessment: Sepsis secondary to hospital-acquired pneumonia: Possible C. difficile diarrhea. Patient currently meets sepsis criteria: Has elevated white cell count, hypotensive, increasing oxygen requirement, need for vasopressor support, x-ray chest showing possible infiltrates. Patient currently has received cautious IV fluid bolus of 1 L, and has also been started on maintenance IV fluid, with closely monitor intake output charting as well as volume status, chest x-ray is also suggestive of pulmonary vascular congestion. Possible infiltrates. Blood culture:NTD Urine culture: NTD MRSA PCR : Negative C. difficile PCR, urine Legionella antigen : Negative bacterial antigen pane: Negative Sputum Gram stain and culture : currently she has been empirically started on broad-spectrum antibiotic Vanco and Zosyn. Hypertensive emergency with flash pulmonary edema: Resolved CTA chest was done which ruled out pulmonary embolism, showed pulmonary vascular congestion, troponin trend was unremarkable, x-ray chest: Suggestive of pulmonary vascular congestion. Currently she has been started on nicardipine drip.nitro/ nitroprusside drip has not been used as the patient was complaining of bad headache after being started on nitroprusside drip. Current goal is to reduce blood pressure by 25% in first 1 to 2 hours from the baseline blood pressure and thereafter continue with gradual blood pressure reduction. She has been started on amlodipine lisinopril hydrochlorothiazide , later clonidine as well as hydralazine was added for better blood pressure control. Antihypertensive medication has been kept on hold. Continue telemetry monitoring. Respiratory failure with hypoxia and hypercapnia: Likely secondary to radha/ohs, pneumonia. ABG: pH: 7.15, PCO2 101, PO2 79, on 6 L She was initially placed on AVAPS, but had to be intubated overnight, as she was extremely somnolent and lethargic. Continue mechanical ventilation for now Continue DuoNebs Monitor ABG Monitor x-ray chest Rare possibility of: Nicardipine which is is a calcium channel prakash toxicity exist: For now we will give her 1 dose of calcium gluconate, 1 dose of glucagon We will manage symptomatically with Levophed and vasopressin, if needed epi. Closely monitor fingerstick glucose. BRIDGETTE : Possibly secondary to ATN secondary to sepsis, in the setting of acute hypotension, possible loss of autoregulation in the setting of acute hypotension, could be possibly secondary to antihypertensive effects. Possible contrast-induced nephropathy as she has received a CTA recently, possible AIN Admission serum creatinine was: 0.5 Current serum creatinine is 1.9 Monitor BMP Monitor intake output charting Avoid nephrotoxic's Has received IV fluid boluses 3 Ls Renal ultrasound has shown: No hydronephrosis of either kidney. 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 Chest pain: Could be related to hypertensive emergency. Troponin trend is unremarkable Monitor EKG 2D echo: Normal LV size systolic function and wall thickness with no RWMA, LVEF estimated 60%, grade 1 diastolic dysfunction. Follow x-ray chest Pulmonary edema: Continue IV diuresis CODE STATUS: Full code DVT prophylaxis: On heparin subacute Attestations Medical Necessity Statement*: Patient needs to be in hospital management of BRIDGETTE, sepsis pneumonia, Critical Care Time: The high probability of a clinically significant, sudden or life threatening deterioration of the patient's [] system(s) required my full and direct attention, intervention and personal management. The critical care time is as shown. This time is in addition to time spent performing any reported procedures but includes the following: [x] Data and vital sign review and interpretation [x] Patient assessment, examination and intervention [x] Documentation [x] Medication orders and management Critical Care Time (min): 36 Procedures Arterial Line Size (Gauge): 20 Coding Level of Care Code Critical Care >/= 30 minutes Diagnoses Hypertensive emergency I16.1 Flash pulmonary edema J81.0 Hypoxia R09.02 Diarrhea R19.7 Pneumonia J18.9 Sepsis A41.9
[2022-09-10] MEDS: bumetanide 0.25 mg/mL SDV 4 mL 1 MG IVP (12:10)
[2022-09-10 12:36] LABS: Glucose Point of Care 94 mg/dL (70-110)
[2022-09-10 13:14] LABS: Specific Gravity, Urine 1.005 (1.005-1.030); Urine Appearance Clear (CLEAR); Urine Color Straw (Yellow); pH Urine 5 (5-7)
[2022-09-10 13:15] LABS: Add Urine Culture? Yes; Bacteria Urine 1+ /hpf; Bilirubin Urine Neg (Negative); Blood Urine 3+ (Negative); Glucose Urine UA Norm (Normal); Ketones Urine Negative (Negative); Leukocyte Esterase Urine 2+ (Negative); Nitrate Urine Negative (Negative); Protein Urine Neg (Negative); RBC Urine 15-25 /hpf (0-2); Transitional Epi Cells Urine 0-4 /hpf; Urobilinogen Urine Norm (Negative); WBC Urine 25-40 /hpf (0-5)
[2022-09-10 15:53] LABS: Glucose Point of Care 91 mg/dL (70-110)
[2022-09-11] VITALS (35 sets, daily range): BP systolic 92–164; BP diastolic 35–96; PULSE 74–90; RESP 20–22; TEMP 36.6–37.3; O2SAT 89–96
[2022-09-11] MEDS: bumetanide 0.25 mg/mL SDV 4 mL 1 MG IVP (00:27)
[2022-09-11] MEDS: piperacillin-tazobactam 2.25 GM in sodium chloride 0.9% (plus) 50 ML IV ×3 (00:28→15:43)
[2022-09-11] MEDS: propofol 1,000 MG/100 ML INJ 31.14 MG IV (00:55)
[2022-09-11] MEDS: heparin 5,000 unit/mL INJ 1 mL 5000 UNIT SUBCUT ×3 (02:37→18:05)
[2022-09-11 02:58] LABS: Glucose Point of Care 90 mg/dL (70-110)
[2022-09-11] MEDS: propofol 1,000 MG/100 ML INJ 41.52 MG IV ×3 (03:06→08:15)
[2022-09-11] MEDS: ipratropium-albuterol 3 mL Neb INHALATION ×4 (03:07→20:04)
[2022-09-11] MEDS: chlorhexidine gluconate 4% Btl 118 mL 1 APPLIC TOPICAL (03:25)
[2022-09-11 06:28] LABS: Basophils % 0.4 %; Eosinophils # 0.1 10^3/uL (0.0-0.8); Eosinophils % 1.3 %; Hemoglobin 15.2 g/dL (11.5-15.3); Lymphocytes % 21.9 %; Mean Corpuscular Hemoglobin 27.5 pg (28.0-34.0); Mean Corpuscular Volume 88.6 fl (81-99); Monocytes # 0.7 10^3/uL (0.2-0.9); Monocytes % 8.3 %; Neutrophils # 6.07 10^3/uL (1.8-7.7); Neutrophils % 67.8 %; Nucleated Red Blood Cells % 0 %; Platelet Count 191 10^3/cmm (130-400); Red Blood Count 5.53 10^6/uL (4.1-5.3)
[2022-09-11 06:39] LABS: Alanine Aminotransferase 16 U/L (0-33); Alkaline Phosphatase 72 U/L (35-105); Aspartate Amino Transferase 20 U/L (0-32); Blood Urea Nitrogen 60 mg/dL (6-20); Calcium 8.7 mg/dL (8.5-10.5); Carbon Dioxide 27 mmol/L (22-29); Chloride 94 mmol/L (98-107); Globulin 2.3 g/dL (1.3-4.6); Glomerular Filtration Rate 10.7 mL/min (90-130); Glucose 84 mg/dL (65-115); Osmolality Calculated 296 mOsm/kg (285-295); Phosphorus 5.9 mg/dL (2.5-4.5); Sodium 135 mmol/L (136-145); Total Bilirubin 0.6 mg/dL (0.15-1.2); Total Protein 5.3 g/dL (6.6-8.7); Vancomycin Random 26.6 ug/mL (20.0-40.0)
[2022-09-11 07:45] LABS: Glucose Point of Care 113 mg/dL (70-110)
--- NOTE | 2022-09-11 08:34 | XR_ITS ---
WS: [id number] Portable AP upright chest, 09/11/2022 Clinical Data: intubated Comparison: Portable chest, 09/09/2022 Findings: The endotracheal tube and nasogastric tube remain in the same position. There are persisten t unchanged bilateral pulmonary opacities which may represent pulmonary edema or diffuse pneumonia. T he heart remains enlarged. Monitor leads are on the chest wall. XR/XR chest 1V portable [id number] Impression: 1. No change in position of multiple tubes. 2. No change in bilateral lung opacities and cardiomegaly.
[2022-09-11 09:46] LABS: Folate Level 8.9 ng/mL (4.8-37.3)
--- NOTE | 2022-09-11 09:47 | P.PN_ITS ---
Subjective Subjective: Intubated on 50% FiO2, off pressors, urine output reasonable Medications: Reviewed: Yes Vitals/I&O/Wt Last Vital Signs Temp 99.1 F 09/11/22 07:52 Pulse 83 09/11/22 07:52 Resp 22 H 09/11/22 09:16 BP 129/64 09/11/22 07:52 Pulse Ox 89 L 09/11/22 09:16 O2 Del Method 09/11/22 07:52 O2 Flow Rate 6 09/08/22 09:00 FiO2 50 09/11/22 09:32 09/10/22 09/11/22 09/11/22 22:59 06:59 14:59 Intake Total 337.359 / 487.359 423.439 / 910.798 100 / 100 Output Total 1600 / 1600 1050 / 2650 250 / 250 Balance -1262.641 / -1112.641 -626.561 / -1739.202 -150 / -150 Weight last 48 hrs Weight 174.5 kg Weight 175 kg Physical Exam Narrative: Patient intubated, sedated, no acute distress Edema bilateral lower extremities Clear to auscultation per report Urinary Catheter Management: Cha: Cath Placed During This Visit: yes Reason for Continuing Indwelling Catheter: Accurate Measurement of Urinary Outpu t in Critically Ill Patients Urinary Catheter Date of Insertion: 09/08/22 Urinary Catheter Time of Insertion: 10:29 Data 09/11/22 05:57 09/11/22 05:57 Micro: Microbiology 09/10/22 12:30 Urine Culture - Preliminary Urine,Clean Catch 09/09/22 01:10 Urine Culture - Final Urine,Clean Catch 09/09/22 04:45 Gram Stain - Final Sputum - Endotracheal Tube Aspirate Sputum Culture - Preliminary A&P Assessment and plan (1) Acute kidney injury: Plan 1. Acute kidney injury. Different includes contrast nephropathy, sepsis, acute interstitial nephritis, hemodynamic. Urine output improving creatinine trending up, if patient's renal function continues to get worse and has high oxygen requirement-we will do temporary dialysis for volume removal. Baseline creatinine was normal prior to admission at 0.5. 2. Volume overload: continue IV bumex 1 mg Q12h, will consider HD if no adequate diuresis 3. Primary respiratory acidosis, hypercapneic respiratory failure on ventilator, Recommend: continue to hold vanco, check level daily. Attestations Medical Necessity Statement*: critically ill in ICU Time Spent in Patient Care: 16 - 35 minutes Procedures Arterial Line Size (Gauge): 20 Coding Level of Care Code Acute Code for Chg Fwd Diagnoses Acute kidney injury N17.9
[2022-09-11 09:51] LABS: Thyroid Stimulating Hormone 16.86 uIU/mL (0.27-4.20); Vitamin B12 514 pg/mL (232-1245)
[2022-09-11 10:05] LABS: ABG PCO2 48.8 mmHg (35-45); ABG PH Result 7.39 (7.35-7.45); Alveolar-Arterial Oxygen Gradi 37.5 mmHg (5-10); Arterial Blood Gas Hematocrit 48.3 % (37-47); Base Excess ABG 3.1 mmol/L (-2.0-2.0); Blood Gas Operator Identificat GD; Blood Gas Sample Site Not specified; Blood Gas Sample Type Arterial; Carboxyhemoglobin 1.3 %THgb (0.4-20.1); HCO3 ABG 29.2 mmol/L (22-26); HGB O2 Sat 94.8 % (95-100); Ionized Calcium Level - ABG 1.1 mmol/L (1.1-1.4); Methemoglobin 0.9 % (0.4-1.5); Oxygen Device VENT; Oxygen Saturation ABG 96.9; Potassium Level - ABG 4.5 mmol/L (3.5-5.0); Total Hemoglobin 15.8 g/dL (12-16)
[2022-09-11 10:14] LABS: Iron 46 ug/dL (37-145); NT Pro B Type Natriuretic Pept 1494 pg/mL (0-125); Percent Saturation 16.9 % (20-50); Total Iron Binding Capacity 271 mcg/dl; Unsaturated Iron Binding 225 ug/dL (112-347)
--- NOTE | 2022-09-11 10:19 | PC.CHAP ---
Pastoral Care Encounter/Spiritual Assessment Type of Contact [] Declined sales project coordinator visit [] Patient/Family/Request visit [] Outpatient visit [] Follow-up visit [] Physician referral [] Code/Alert [x] Routine visit [] Staff referral [] Actively dying [] Patient sleeping [x] Family support [] [] Out of room [] Palliative care [] [] Receiving care in room [] Pre-surgical visit [] Trauma [] Long length of stay [x] ICU visit [x] Other: visited [id number] requested prayer by family and staff Relational/Emotional Strength [] Patient feels connected with others/family/visitors/staff [] Distress [] Loneliness/isolation [] Abandonment Spirituality of Patient [] Person of Soco [] Attends Sabianist of their [place] [] Believes in Prayer [] Reads Bible or Mandaen materials [] There are Spiritual issues to be addressed Tongue Trimmer Interventions [x] Prayer [] Active listening [] Non-anxious presence [] Spiritual/emotional support [] Crisis/trauma care [] Spiritual counseling [] Bereavement support [] Provided bereavement packet [] Provided Bible/devotional materials [] Provided toy/stuffed animal, coloring book to patient or family member [] Provided Communion [] Anointing/[place] [] Salvation [x] Completed spiritual assessment [] Other: Impact on Illness or Injury [] Angry [] Fearful [] Anxious [] Often cries [] Exhaustion [] Unable to work [] Unable to attend congregational [] Unable to walk/stand [] Unable to read [] Unable to drive [] Unable to eat/drink [] Unable to sleep [] Unable to be with family [] Patient intubated [] Other: Summary Time spent with patient
[2022-09-11] MEDS: bumetanide 0.25 mg/mL SDV 4 mL 2 MG IVP ×2 (10:20→18:06)
[2022-09-11 10:33] LABS: Free T4 Free Thyroxine 0.92 ng/dL (0.82-1.77); T3 Free 2.2 PG/ML (2.0-4.4)
[2022-09-11] MEDS: propofol 1,000 MG/100 ML INJ 62.29 MG IV ×7 (10:57→20:11)
[2022-09-11] MEDS: albuterol 2.5 mg/3 mL Neb INHALATION (11:27)
[2022-09-11] MEDS: budesonide 0.5 mg/2 mL Neb INHALATION ×2 (11:28→20:04)
[2022-09-11 12:02] LABS: Glucose Point of Care 85 mg/dL (70-110)
[2022-09-11 12:21] LABS: Hepatitis A Antibody IgM Non-Reactive (Nonreactive); Hepatitis B Core AB, Total Non-Reactive (Nonreactive); Hepatitis B Surface Antigen Non-Reactive (Nonreactive); Hepatitis C Virus Antibody Non-Reactive (Nonreactive)
--- NOTE | 2022-09-11 13:03 | XR_ITS ---
WS: [id number] Portable AP supine chest, 09/11/2022, 1214 hours Clinical Data: HD placement Comparison: Portable chest, 09/11/2022, 1029 hours Findings: A right internal jugular venous dialysis catheter was inserted. The tip appears to end in t he superior vena cava just above the cavoatrial junction. No pneumothorax is seen. The endotracheal t ube and nasogastric tube remain in the same position. The heart remains enlarged and the pulmonary va scularity is engorged. XR/XR chest 1V portable [id number] Impression: Insertion of right dialysis catheter.
--- NOTE | 2022-09-11 13:30 | P.CONIM_ITS ---
Providers/Reason For Consult Consulting Physician/Specialty*: Dada Dobbs MD/pulmonary critical care Reason for Consult*: Worsening renal function in patient with underlying sepsis-consult for placing hemodialysis catheter Requesting Physician: Derek Rodríguez MD Attending Physician: Derek Rodríguez MD Primary Care Provider: Isacc Cisneros History of Present Illness History of Present Illness Le Almaraz is a 42 year old female with past medical history of hypertension noncompliant with antihypertensive medications, morbid obesity with BMI 60-transfer from outside facility for management of substernal chest pain associated with acute worsening shortness of breath. On arrival to ED-patient is hypertensive emergency with systolics in 200 and diastolic 130s and started on nicardipine drip as well as oral antihypertensive. She had headache with a nitroprusside drip.CTA ruled out pulmonary embolism, showed pulmonary vascular congestion, troponin trend was unremarkable.She was admitted to ICU for hypertensive emergency with flash pulmonary edema. She was started on IV Lasix.She had an echocardiogram 09/06/2022-which showed normal LV size systolic function, LVEF estimated 60% with grade 1 diastolic dysfunction. D2-D3:-patient became hypotensive, respiratory failure with hypoxia and hypercapnia likely secondary to fluid overload/JOSE L/OHS/?? Pneumonia; her ABG showed pH 7.15 PCO2 101, PaO2 79 on 6 L oxygen She was intubated for respiratory failure and an art line was placed to get easy access for ABGs; she was started on Levophed and vasopressin. There was a concern for calcium channel prakash toxicity and so patient received 1 dose of calcium gluconate, 1 dose glucagon. Patient was also started on vancomycin and Zosyn for suspected pneumonia. She was receiving Bumex 2 Mg/hour. Day 4: Nephrology team consulted for decreasing urine output, worsening renal functions-differentials included contrast nephropathy, sepsis, acute interstitial nephritis-discontinued vancomycin and reduced dose of Zosyn: Discontinued Bumex drip Day 5: Patient is off pressors, urine output improved, renal functions continue to deteriorate Day 6: Today-patient has 1500 cc urine output during overnight shift, continues to have 100 cc/h urine output-however BUN/creatinine continue to worse; Patient is intubated, sedated with propofol 40, fentanyl 75 mcg/hour; saturating 92% on CMV 400/10/60% Off pressors and remained hemodynamically stable. Review of Systems General: Reports: ROS unobtainable due to endotracheal tube, ROS unobtainable due to medical condition and ROS unobtainable due to mental status Medications/Allergies Home Medications Medication Instructions Recorded Confirmed Last Taken Type No Known Home Medications 09/07/22 09/07/22 Unknown History Allergies Allergy/AdvReac Type Severity Reaction Status Date / Time No Known Allergies Allergy Verified 09/07/22 07:55 Current Medications Generic Name Dose Route Start Last Admin Trade Name Freq PRN Reason Stop Dose Admin Acetaminophen 650 mg 09/06/22 10:41 09/07/22 04:50 Acetaminophen 325 Mg Tablet PO 650 mg Q6H PRN Administration Mild/Mod Pain Or Temp >/= 101 Albuterol Sulfate 2.5 mg 09/11/22 09:54 09/11/22 11:27 Albuterol 2.5 Mg/3 Ml Neb INHALATION 2.5 mg Q4H.RESPIRATORY PRN Administration SHORTNESS OF BREATH Budesonide 0.5 mg 09/11/22 09:55 09/11/22 11:28 Budesonide 0.5 Mg/2 Ml Neb INHALATION 0.5 mg BID [place] Administration Bumetanide 2 mg 09/11/22 10:00 09/11/22 10:20 Bumetanide 0.25 Mg/Ml Sdv 4 Ml IVP 2 mg Q8H ST[place] Administration Chlorhexidine Gluconate 1 applic 09/10/22 01:00 09/11/22 03:25 Chlorhexidine Gluconate 4% Btl 118 Ml TOPICAL 1 applic 0100 ST[place] Administration Heparin Sodium (Porcine) 5,000 unit 09/06/22 10:45 09/11/22 10:21 Heparin 5,000 Unit/Ml Inj 1 Ml SUBCUT 5,000 unit Q8H [place] Administration Propofol 1,000 mg in 100 mls @ 0 mls/hr 09/09/22 03:45 09/11/22 12:17 Diprivan IV 60 mcg/kg/min .Q0M ST[place] 62.29 mls/hr Administration Protocol Per Protocol Fentanyl 2,500 mcg/ Sodium 250 mls @ 0 mls/hr 09/09/22 04:45 09/11/22 09:54 Chloride IV 100 mcg/hr .Q0M ST[place] 10 mls/hr Titration Protocol Per Protocol Piperacillin Sod/Tazobactam 50 mls @ 12.5 mls/hr 09/10/22 08:00 09/11/22 12:0 2 Sod 2.25 gm/ Sodium Chloride IV Infused Q8H [place] Infusion Ondansetron HCl 4 mg 09/06/22 10:41 09/08/22 16:34 Ondansetron 2 Mg/Ml Sdv 2 Ml IVP 4 mg Q8H PRN Administration vomiting, or N/V if npo PFSH Acute PFSH: Medical History CHF (congestive heart failure) Essential hypertension Hypertension screen Hypoxia Medication management Polycystic ovarian disease Vitamin D deficiency Surgical History S/P cholecystectomy S/P D&C (status post dilation and curettage) S/P tubal ligation Social History Smoking and tobacco status: former smoker Quit status (tobacco): has quit using tobacco Second hand smoke exposure: No Smoking risk assessment/counseling performed?: No Alcohol intake: never Desire information about alcohol rehabilitation?: No Counseling given: No Desire information about substance/drug rehabilitation?: No Counseling given: No Vitals/I&O/Wt Last Vital Signs Temp 99.1 F 09/11/22 07:52 Pulse 84 09/11/22 11:45 Resp 22 H 09/11/22 11:45 BP 115/68 09/11/22 11:45 Pulse Ox 90 09/11/22 11:45 O2 Del Method 09/11/22 11:45 O2 Flow Rate 6 09/08/22 09:00 FiO2 60 09/11/22 11:45 09/10/22 09/11/22 09/11/22 22:59 06:59 14:59 Intake Total 337.359 / 487.359 423.439 / 910.798 359.503 / 359.503 Output Total 1600 / 1600 1050 / 2650 550 / 550 Balance -1262.641 / -1112.641 -626.561 / -1739.202 -190.497 / -190.497 Weight last 48 hrs Weight 384 lb 11.306 oz Weight 385 lb 12.943 oz Physical Exam Narrative: PHYSICAL EXAM: General: Morbidly obese, young female, lying in bed, sedated and intubated. HEENT:NCAT, PERRLA, EOMI Neck: Supple Lungs: Bilateral diffuse crackles Heart: s1/s2, RRR Abd: soft, NT, ND, BS + Normoactive Extremities: No edema, right forearm infiltrated EMERGENCY MEDICAL TECHNICIAN BASIC: sedated and limited EMERGENCY MEDICAL TECHNICIAN BASIC exam possible. SKIN: no rash LDA: # HD Cath : Right IJ 09/11/2022 # A line: 09/08/2022 left radial artery Urinary Catheter Management: Cha: Cath Placed During This Visit: yes Reason for Continuing Indwelling Catheter: Accurate Measurement of Urinary Output in Critically Ill Patients Urinary Catheter Date of Insertion: 09/08/22 Urinary Catheter Time of Insertion: 10:29 Data 09/11/22 05:57 09/11/22 05:57 Other Labs: Radiology Impressions Duplex Scan Upper Extremity Artery 09/08/22 20:22 IMPRESSION: 1. No evidence for major vessel occlusion or significant stenosis. 2. Other details discussed above. Venous Duplex 09/08/22 20:31 IMPRESSION: No evidence of acute right upper extremity DVT. Renal Ultrasound 09/09/22 05:33 IMPRESSION: 1. No hydronephrosis of either kidney. 2. Technologist notes somewhat limited evaluation of the kidneys, due to patient condition and body habitus. 3. Other details discussed above. Chest X-Ray 09/11/22 13:03 Impression: Insertion of right dialysis catheter. Laboratory Results WBC 9.0 10^3/uL (4.0-10.0) 09/11/22 05:57 RBC 5.53 10^6/uL (4.1-5.3) H 09/11/22 05:57 Hgb 15.2 g/dL (11.5-15.3) 09/11/22 05:57 Hct 49.0 % (37.0-47.0) H 09/11/22 05:57 MCV 88.6 fl (81-99) 09/11/22 05:57 MCH 27.5 pg (28.0-34.0) L 09/11/22 05:57 MCHC 31.0 g/dL (30.0-36.0) 09/11/22 05:57 RDW 14.0 % (12.1-15.1) 09/11/22 05:57 Plt Count 191 10^3/cmm (130-400) 09/11/22 05:57 MPV 11.0 fL (7.4-10.4) H 09/11/22 05:57 Neut % (Auto) 67.8 % 09/11/22 05:57 Lymph % (Auto) 21.9 % 09/11/22 05:57 Morton % (Auto) 8.3 % 09/11/22 05:57 Eos % (Auto) 1.3 % 09/11/22 05:57 Baso % (Auto) 0.4 % 09/11/22 05:57 Neut # (Auto) 6.07 10^3/uL (1.8-7.7) 09/11/22 05:57 Lymph # (Auto) 2.0 10^3/uL (0.8-4.8) 09/11/22 05:57 Morton # (Auto) 0.7 10^3/uL (0.2-0.9) 09/11/22 05:57 Eos # (Auto) 0.1 10^3/uL (0.0-0.8) 09/11/22 05:57 Baso # (Auto) 0.0 10^3/uL (0.0-0.1) 09/11/22 05:57 Nucleated RBC % (auto) 0 % 09/11/22 05:57 Nucleated RBCs # 0.0 /100WBC 09/11/22 05:57 D-Dimer 3.45 ug/mIFEU (0-0.59) H 09/11/22 17:27 Specimen Type Arterial 09/11/22 09:50 Sample Site Not specified 09/11/22 09:50 ABG pH 7.39 (7.35-7.45) 09/11/22 09:50 ABG pCO2 48.8 mmHg (35-45) H 09/11/22 09:50 ABG pO2 83.0 mmHg (80.0-100.0) 09/11/22 09:50 ABG HCO3 29.2 mmol/L (22-26) H 09/11/22 09:50 ABG O2 Saturation 96.9 09/11/22 09:50 ABG Base Excess 3.1 mmol/L (-2.0-2.0) H 09/11/22 09:50 Haider Test N/a 09/11/22 09:50 A-a O2 Gradient 37.5 mmHg (5-10) H 09/11/22 09:50 Hematocrit 48.3 % (37-47) H 09/11/22 09:50 Hgb O2 Saturation 94.8 % (95-100) L 09/11/22 09:50 Carboxyhemoglobin 1.3 %THgb (0.4-20.1) 09/11/22 09:50 Methemoglobin 0.9 % (0.4-1.5) 09/11/22 09:50 Total Hemoglobin 15.8 g/dL (12-16) 09/11/22 09:50 Sodium 136.0 mmol/L (131-143) 09/11/22 09:50 Potassium 4.5 mmol/L (3.5-5.0) 09/11/22 09:50 Glucose 84.0 mg/dL (70-115) 09/11/22 09:50 Ionized Calcium 1.1 mmol/L (1.1-1.4) 09/11/22 09:50 O2 Delivery Device Vent 09/11/22 09:50 O2 Liters/Min 7.0 % 09/08/22 15:57 FiO2 60.0 % 09/11/22 09:50 Tidal Volume 0.40 09/11/22 09:50 PEEP 10.0 cmH20 09/11/22 09:50 Waiter/Waitress Counter ID Gd 09/11/22 09:50 Sodium 135 mmol/L (136-145) L 09/11/22 05:57 Potassium 5.0 mmol/L (3.5-5.1) 09/11/22 05:57 Chloride 94 mmol/L (98-107) L 09/11/22 05:57 Carbon Dioxide 27 mmol/L (22-29) 09/11/22 05:57 Anion Gap 19.0 (5-19) 09/11/22 05:57 BUN 60 mg/dL (6-20) H 09/11/22 05:57 Creatinine 4.5 mg/dL (0.5-0.9) H 09/11/22 05:57 GFR Calculation 10.7 mL/min (90-130) L 09/11/22 05:57 Glucose 84 mg/dL (65-115) 09/11/22 05:57 POC Glucose 88 mg/dL (70-110) 09/11/22 16:35 Calculated Osmolality 296 mOsm/kg (285-295) H 09/11/22 05:57 Lactic Acid 1.6 mmol/L (0.5-2.2) 09/08/22 09:06 Calcium 8.7 mg/dL (8.5-10.5) 09/11/22 05:57 Phosphorus 5.9 mg/dL (2.5-4.5) H 09/11/22 05:57 Magnesium 2.1 mg/dL (1.7-2.3) 09/07/22 04:38 Iron 46 ug/dL (37-145) 09/11/22 05:57 TIBC 271 mcg/dl 09/11/22 05:57 % Saturation 16.9 % (20-50) L 09/11/22 05:57 Unsat Iron Binding 225 ug/dL (112-347) 09/11/22 05:57 Total Bilirubin 0.6 mg/dL (0.15-1.2) 09/11/22 05:57 AST 20 U/L (0-32) 09/11/22 05:57 ALT 16 U/L (0-33) 09/11/22 05:57 Alkaline Phosphatase 72 U/L (35-105) 09/11/22 05:57 Creatine Kinase 225 U/L (26-192) H 09/10/22 03:30 CK-MB (CK-2) 14.9 ng/mL (0-5.34) H 09/10/22 03:30 CK-MB (CK-2) Rel Index 6.6 % (0.0-10.4) 09/10/22 03:30 NT-Pro-B Natriuret Pep 1494 pg/mL (0-125) H 09/11/22 05:57 Total Protein 5.3 g/dL (6.6-8.7) L 09/11/22 05:57 Albumin 3.0 g/dL (3.5-5.2) L 09/11/22 05:57 Globulin 2.3 g/dL (1.3-4.6) 09/11/22 05:57 Vitamin B12 514 pg/mL (232-1245) 09/11/22 05:57 Folate 8.9 ng/mL (4.8-37.3) 09/11/22 05:57 Procalcitonin 0.35 ng/mL (0-0.5) 09/08/22 09:06 TSH 16.86 uIU/mL (0.27-4.20) H 09/11/22 05:57 Free T4 0.92 ng/dL (0.82-1.77) 09/11/22 05:57 Free T3 2.2 PG/ML (2.0-4.4) 09/11/22 05:57 Urine Color Straw (Yellow) 09/10/22 12:30 Urine Appearance Clear (CLEAR) 09/10/22 12:30 Urine pH 5 (5-7) 09/10/22 12:30 Ur Specific [place] 1.005 (1.005-1.030) 09/10/22 12:30 Urine Protein Neg (Negative) 09/10/22 12:30 Urine Glucose (UA) Norm (Normal) 09/10/22 12:30 Urine Ketones Negative (Negative) 09/10/22 12:30 Urine Blood 3+ (Negative) H 09/10/22 12:30 Urine Nitrate Negative (Negative) 09/10/22 12:30 Urine Bilirubin Neg (Negative) 09/10/22 12:30 Urine Urobilinogen Norm mg/dL (Negative) 09/10/22 12:30 Ur Leukocyte Esterase 2+ (Negative) H 09/10/22 12:30 Urine RBC 15-25 /hpf (0-2) H 09/10/22 12:30 Urine WBC 25-40 /hpf (0-5) H 09/10/22 12:30 Ur Squamous Epith Cells 5-10 /hpf (0-5) H 09/10/22 12:30 Ur Transition Epith Cell 0-4 /hpf 09/10/22 12:30 Amorphous Sediment Not Reportable 09/10/22 12:30 Urine Bacteria 1+ /hpf (NONE) H 09/10/22 12:30 Ur Random Sodium 93 mmol/L 09/09/22 01:10 Urine Creatinine 51 mg/dL (28-217) 09/09/22 01:10 Nasal Influ A H1 2008 PCR Not detected (NOT DETECT) 09/08/22 08:45 Random Vancomycin 26.6 ug/mL (20.0-40.0) 09/11/22 05:57 Adenovirus (PCR) Not detected (NOT DETECT) 09/08/22 08:45 C. pneumoniae DNA (PCR) Not detected (NOT DETECT) 09/08/22 08:45 Coronavirus 229E (PCR) Not detected (NOT DETECT) 09/08/22 08:45 Hepatitis A IgM Ab Non-reactive (Nonreactive) 09/11/22 05:57 Hep Bs Antigen Non-reactive (Nonreactive) 09/11/22 05:57 Hep Bs Antibody 12.8 (11.5-1000) 09/11/22 05:57 Hep B Core Total Ab Non-reactive (Nonreactive) 09/11/22 05:57 Hepatitis C Antibody Non-reactive (Nonreactive) 09/11/22 05:57 Human Metapneumovir PCR Not detected (NOT DETECT) 09/08/22 08:45 Influenza A (H1) PCR Not detected (NOT DETECT) 09/08/22 08:45 Influenza A (H3) PCR Not detected (NOT DETECT) 09/08/22 08:45 Influenza Type A (PCR) Not detected (NOT DETECT) 09/08/22 08:45 Influenza Type B (PCR) Not detected (NOT DETECT) 09/08/22 08:45 M. pneumoniae (PCR) Not detected (NOT DETECT) 09/08/22 08:45 Parainfluenza 1 (PCR) Not detected (NOT DETECT) 09/08/22 08:45 Parainfluenza 2 (PCR) Not detected (NOT DETECT) 09/08/22 08:45 Parainfluenza 3 (PCR) Not detected (NOT DETECT) 09/08/22 08:45 Parainfluenza 4 (PCR) Not detected (NOT DETECT) 09/08/22 08:45 RSV Type A (PCR) Not detected (NOT DETECT) 09/08/22 08:45 RSV Type B (PCR) Not detected (NOT DETECT) 09/08/22 08:45 Entero/Rhino (PCR) Not detected (NOT DETECT) 09/08/22 08:45 SARS-CoV-2 (PCR) Not detected (NOT DETECT) 09/08/22 08:45 Micro: Microbiology 09/09/22 04:45 Gram Stain - Final Sputum - Endotracheal Tube Aspirate Sputum Culture - Final 09/10/22 12:30 Urine Culture - Preliminary Urine,Clean Catch 09/09/22 01:10 Urine Culture - Final Urine,Clean Catch A&P Assessment and plan (1) Acute respiratory failure with hypoxia and hypercapnia: (2) Obstructive sleep apnea: (3) Pneumonia: (4) Flash pulmonary edema: (5) Hypertensive emergency: (6) Acute kidney injury: Plan ASSESSMENT/PLAN:Overall: 42-year-old young female with past medical history of hypertension-noncompliant with her medications-initially comes with hypertensive emergency with flash pulmonary edema-treated with nicardipine drip-becomes hypotensive-started on pressors and antibiotics for presumed sepsis. She went into respiratory failure requiring mechanical ventilation support. She also developed BRIDGETTE requiring temporary hemodialysis. NEURO: #Sedation-currently on fentanyl and propofol gtt. -Adjust to maintain RASS -2 -We will continue with awakening trials PULM: #Acute hypoxic and hypercapnic respiratory failure-probably there is a chronic component given her morbid obesity -Acute component secondary to flash pulmonary edema due to hypertensive emergency -Currently she is intubated on mechanical ventilation-CMV 400/60% FiO2/PEEP of 10-ABG today morning 7.3 9/48/83/2 9/96% saturation -She is on scheduled nebulization with DuoNeb as well as Pulmicort -Currently she is on Bumex 2 Mg Q8 over follow-up fluid overload-worsening renal functions-she will receive temporary hemodialysis for fluid removal -We will continue with awakening and breathing trials once FiO2 is down to 50% CVS: #Hypertensive emergency-treated with nicardipine drip-resolved #Circulatory shock-likely secondary to possible nicotine toxicity or demand ischemia due to underlying? Sepsis -Currently off pressors -She may need pressor support during hemodialysis -Echocardiogram during admission showed normal LV size, systolic function with EF 60%. Grade 1 diastolic dysfunction. -Elevated BNP -We will continue with Bumex 2 Mg every 8 hours and fluid removal through te mporary hemodialysis -Continue close hemodynamic and cardiac monitoring GI: #Diet: N.p.o. #GI prophylaxis: PPI #LFTs: Within normal limits RENAL: #BRIDGETTE-most likely prerenal secondary to ischemic ATN due to hypotension/? Contrast-induced nephropathy -Worsening creatinine and BUN -Electrolytes and bicarb within normal limits -Adequate urine output -Currently on Bumex 2 Mg 3 times daily -Nephrology on board and recommended temporary hemodialysis for fluid removal HEM: #Leukocytosis-improving #H&H stable #Normal platelets ENDO: #Significantly elevated TSH-suspect hypothyroidism-patient on levothyroxine 50 mcg q. p.o. daily-she may need to follow-up as outpatient #Normal blood sugars ID: #Presumably met sepsis criteria -Pulmonary infiltrates on imaging-with leukocytosis-and hypotension-there was a suspicion if it is all septic shock secondary to pneumonia; -However infiltrates can be explained with fluid overload, hypotension secondary to need Cardene drip -Patient procalcitonin is low -So far cultures are negative, and MRSA nares negative-final cultures pending -Discontinued vancomycin, patient is currently on Zosyn Code Status: Full code Disposition: ICU Critically ill: Yes MD discussed with: Hospitalist, RN, RT taking care of the patient ICU CHECKLIST: Problem list updated Verbal orders reviewed and signed Analgesia: Fentanyl Glycemic Control: N/A Nutrition: N.p.o.-we can start her on TF nephro Restraint Renewal (within 24 hrs): Yes Ulcer Prophylaxis: PPI Chemical Thromboprophylaxis: Prophylaxis: Heparin subcu Mechanical Thromboprophylaxis: SCDs Need for Central line: Yes for multiple medications Need for Cha catheter: Yes for urine output monitoring Consult Attestations Medical Necessity Statement: Acute hypoxic/hypercapnic respiratory failure secondary to fluid overload due to hypertensive emergency-requiring mechanical ventilation; will continue to monitor at least 48 hours in ICU Time Spent in Patient Care: Greater than 35 minutes (>than 50% of time spent in counselling and/or direct pt care on unit) . Critical Care Time: This patient has a high probability of clinically significant, sudden or life threatening deterioration of the patient's (neurological/pulmonary/cardiac/renal/ID/endocrine) systems required my full, direct attention, the highest level of physician preparedness for urgent intervention and personal management. I managed/supervised life or organ supporting interventions that required frequent physician assessment. I devoted my full attention in the ICU to the direct care of this patient for the period of time indicated above. Time I spent with family or surrogate(s) is included only if the patient was incapable of providing necessary information or participating in decision making. This time includes the following services provided: Telemetry review Mechanical Ventilation Hemodynamic interpretation, assessment and management Review and interpretation of CXR Review and interpretation of lab values Review and interpretation of microbiologic data and culture results Review of medications and administration Review and interpretation of Nutrition requirements and management Discussion of management with other consultants and services Clinical update to family members [x] Data and vital sign review and interpretation [x] Patient assessment, examination and intervention [x] Documentation [x] Medication orders and management Time spent for teaching as well as performing procedures are billed separately and is not included in this note Critical Care Time (min): 81 Procedures Arterial Line Size (Gauge): 20 Coding Level of Care Code Critical Care >/= 30 minutes Diagnoses Acute respiratory failure with hypoxia and hypercapnia J96.01; J96.02 Obstructive sleep apnea G47.33 Pneumonia J18.9 Flash pulmonary edema J81.0 Hypertensive emergency I16.1 Acute kidney injury N17.9 Time Spent (min) 81
--- NOTE | 2022-09-11 13:30 | PM.OP ---
Operative Report Date of procedure: September 11, 2022
--- NOTE | 2022-09-11 13:30 | PM.ACPR ---
Procedure/Consent Time out: Time Out Performed: Yes Consent: Consent for Procedure: Consent obtained from other (indicate) (Next of kin), Risks & Benefits reviewed and Agrees to proceed with procedure Procedure Narrative: Procedure:Ultrasound guided Nontunneled hemodialysis catheter - CPT CODE 15150 + CPT code 67924 Indication: Worsening renal failure requiring hemodialysis Time of the Procedure: 1300 Meter [employer] Regulator Shop Supervisor(s): Dada VELAZCO Consent: Obtained from NOK and placed in chart Site: Right internal jugular Anesthesia: 5 cc 1% lidocaine without epinephrine Description: After doing timeout with patient's RN at bedside, the area of interest is prepped with chlorhexidine and draped in a sterile manner. 1% lidocaine given for local anesthesia. Under ultrasound guidance identified patent right internal jugular vein, confirmed with compressibility and location on the medial side of noncompressible and pulsatile right carotid artery. An introducer needle was used with concurrent real-time ultrasound visualization of vascular needle entry. After desired vessel puncture, a guidewire is advanced through the needle, the needle is withdrawn. Using guidewire as the guide, achieved adequate dilation using 2 sequential dilators followed by insertion of 12 Estonian 16 cm hemodialysis catheter over guidewire into the desired vessel using Seldinger technique. The guidewire is removed and all ports joi blood and were flushed with normal saline. Caps were placed on the port, catheter was sutured in place, Biopatch applied at the catheter entry and dressed with sterile dressing. Ultrasound guidance used: Yes Placement confirmed by: Ultrasound Complications: None. Patient tolerated procedure well Dada VELAZCO Pulmonary Critical Care Acute Procedures Arterial Line: Size (Gauge): 20 Epistaxis Control: Time out performed: Yes
[2022-09-11 16:24] LABS: Hepatitis B Surface AB 12.8 (11.5-1000)
--- NOTE | 2022-09-11 16:42 | PM.PN ---
Subjective Subjective: Hospital course, labs appreciated. Seen with family at bedside. Patient is on propofol of 40, fentanyl 75. Awake and able to follow commands. Seems anxious. Saturating 92% on current ventilator settings of FiO2 60%, tidal volume 400, PEEP of 10. Off pressors. Has remained hemodynamically stable. Arterial line in place with blood pressures of of mean maintaining over 70. Tmax in last 24 hours of 99.8 Fahrenheit. Urine output of around 2600 last 24 hours. Vitals/I&O/Wt Last Vital Signs Temp 99.1 F 09/11/22 07:52 Pulse 83 09/11/22 15:36 Resp 22 H 09/11/22 15:37 BP 115/68 09/11/22 11:45 Pulse Ox 93 09/11/22 15:37 O2 Del Method 09/11/22 15:25 O2 Flow Rate 6 09/08/22 09:00 FiO2 60 09/11/22 15:37 09/11/22 09/11/22 09/11/22 06:59 14:59 22:59 Intake Total 423.439 / 910.798 459.503 / 459.503 83.053 / 542.556 Output Total 1050 / 2650 550 / 550 Balance -626.561 / -1739.202 -90.497 / -90.497 83.053 / -7.444 Weight last 48 hrs Weight 174.5 kg Weight 175 kg Physical Exam Narrative: Intubated sedated on mechanical ventilation. On sedation, awake and following commands, morbidly obese, flushed Const: COMMON NORMALS: patient oriented x3 HENMT: COMMON NORMALS: normocephalic, atraumatic and hearing grossly normal bilaterally HEAD & SCALP: normocephalic and atraumatic Resp: COMMON NORMALS: clear to auscultation bilaterally AUSCULTATION: clear to auscultation bilaterally OTHER: Diminished air entry bilaterally Cardio: COMMON NORMALS: regular rate, regular rhythm, S1 normal heart sound present, S2 normal heart sound present, No gallops present (Cardio), No murmurs present (Cardio), No rub (Cardio) and Peripheral pulses 2+ throughout RATE: regular rate RHYTHM: regular rhythm HEART SOUNDS: S1 normal heart sound present and S2 normal heart sound present PERIPHERAL PULSES: Peripheral pulses 2+ throughout GI: COMMON NORMALS: Normal to inspection, nondistended, normoactive bowel sounds present, Soft to palpation, non-tender, No hepatosplenomegaly present and no masses AUSCULTATION: Yes normoactive bowel sounds PALPATION: Yes Soft to palpation and Yes No hepatosplenomegaly present RECTAL EXAM: deferred Extremity: COMMON NORMALS: no clubbing, cyanosis or edema and no pedal edema Neuro: COMMON NORMALS: patient oriented x3 Skin: OTHER: Blister present in right dorsum of the hand secondary to infiltration of antibiotics 24 hours ago. Urinary Catheter Management: Cha: Cath Placed During This Visit: yes Reason for Continuing Indwelling Catheter: Accurate Measurement of Urinary Output in Critically Ill Patients Urinary Catheter Date of Insertion: 09/08/22 Urinary Catheter Time of Insertion: 10:29 Data 09/11/22 05:57 09/11/22 05:57 Micro: Microbiology 09/11/22 11:45 Gram Stain - Final Sputum - Endotracheal Tube Aspirate 09/09/22 04:45 Gram Stain - Final Sputum - Endotracheal Tube Aspirate Sputum Culture - Final 09/10/22 12:30 Urine Culture - Preliminary Urine,Clean Catch 09/09/22 01:10 Urine Culture - Final Urine,Clean Catch A&P Assessment and plan (1) Sepsis: (2) Acute respiratory failure with hypoxia and hypercapnia: (3) Obstructive sleep apnea: (4) CHF (congestive heart failure): Qualifiers: Heart failure type: diastolic Heart failure chronicity: acute on chronic Qualified Code(s): I50.33 - Acute on chronic diastolic (congestive) heart failure (5) Pneumonia: (6) Acute kidney injury: (7) Hypertensive emergency: (8) Flash pulmonary edema: (9) Diarrhea: (10) Essential hypertension: Plan 42 year old female with known past medical history of hypertension noncompliant with antihypertensive medication, morbid obesity, was accepted as a direct transfer, she was initially admitted for the management of substernal chest pain, associated with acute onset of worsening shortness of breath. Assessment: Sepsis secondary to hospital-acquired pneumonia: Previously septic shock which has resolved. Sepsis during admission which was ruled in with elevated white cell count, hypotensive, target organ dysfunction with increasing oxygen requirement and eventual intubation, need for vasopressor support, x-ray chest showing possible infiltrates. Keep mean arterial pressure over 65. Saturation over 92%. Continue with sedation with fentanyl and propofol for now. Blood cultures so far negative. Urine Legionella, bacterial antigen negative. Urine culture benign. Sputum culture negative. Continue vancomycin and Zosyn for now. Check MRSA swab. If negative will discontinue vancomycin. Check D-dimer, procalcitonin. If D-dimer is positive can plan for CTA. Otherwise if oxygen supplementation continues to remain high can plan for CT chest. Hypoxic and hypercapnic respiratory failure: Currently intubated. Most likely in setting of decompensated congestive heart failure in setting of hypertensive emergency and acute kidney dysfunction in setting of obstructive sleep apnea and possible pneumonia. Increase Bumex to 2 mg 3 times daily. Most likely given worsening of renal function patient will require hemodialysis. Family is agreeable. Strict input output charting, daily weights. Echocardiogram done during hospitalization shows EF of 60% with grade 1 diastolic dysfunction. Patient will need an outpatient sleep study to quantify sleep apnea. Patient will most likely need to be extubated and discharged on BiPAP. Hypertension with hypertensive emergency with flash pulmonary edema on admission: Resolved Blood pressure is better controlled. We will continue to monitor blood pressures and start treatment accordingly. Goal blood pressure less than 140/91 which with mean over 65. Monitor x-ray chest BRIDGETTE : Possibly secondary to ATN secondary to sepsis, in the setting of acute hypotension, versus possibly secondary to antihypertensive effects. Possible contrast-induced nephropathy as she has received a CTA recently, possible AIN Urine output appropriate. Renal functions continue to worsen. Given patient being ventilator dependent with difficult extubation given multiple comorbidities it would be best for patient to be as net negative as possible. Care discussed in detail with patient's family at bedside and neph nephrology. Plan for early dialysis. Will consult abrasive wheel molder for dialysis catheter placement and start of dialysis as soon as possible. Continue with Bumex as above. Monitor BMP daily for now. Right upper extremity swelling: DVT ruled out. Does have blister on the dorsum of right hand due to infiltration of IV antibiotics. Continue to monitor. Sedation: Propofol and fentanyl Glycemic control: Not needed. Check A1c. Hypoglycemia protocol Nutrition: NPO. Patient has been intubated for few days. Will start on tube feeds at 10 cc/h increasing to 10 cc every 4 hours with goal of 60 cc/h. 100 cc every 4 hours free water flushes. CODE STATUS: Discussed in detail with patient mother and who is the DPOA at bedside. Patient is full code. We discussed need for dialysis for quick improvement. Family verbalized understanding and are agreeable. PUD prophylaxis: Protonix DVT prophylaxis:Heparin 5000 SQ Q8h Discharge planning: We will plan on discharge to home versus SNF as per clinical improvement going forward once patient is extubated. Patient will need sleep study as an outpatient and possible discharge on BiPAP. Continue with care at ICU This documentation was created by [employer] bill board poster software. Every effort was made to ensure accuracy of bill board poster. Any obvious errors or omissions should be clarified with the author of the document. Attestations Medical Necessity Statement*: Requires further hospitalization for management of sepsis with hypoxic respiratory failure, acute kidney injury requiring new hemodialysis in a patient with morbid obesity and high chances of obstructive sleep apnea. Procedures Arterial Line Size (Gauge): 20 Coding Level of Care Code Critical Care >/= 30 minutes Critical care time (in minutes): 80 The high probability of a clinically significant, sudden or life threatening deterioration, as referenced in this documentation, required my full and direct attention, intervention and personal management. The critical care time shown is in addition to time spent performing any reported separately billable procedures and includes the following: [x] Data and vital sign review and interpretation [x] Patient assessment, examination and intervention [x] Medication orders and management [x] Patient/Family updates as able [x] Care Coordination and Documentation. Diagnoses Sepsis A41.9 Acute respiratory failure with hypoxia and hypercapnia J96.01; J96.02 Obstructive sleep apnea G47.33 CHF (congestive heart failure) I50.33 Heart failure type: diastolic Heart failure chronicity: acute on chronic Pneumonia J18.9 Acute kidney injury N17.9 Hypertensive emergency I16.1 Flash pulmonary edema J81.0 Diarrhea R19.7 Essential hypertension I10
[2022-09-11 16:43] LABS: Glucose Point of Care 88 mg/dL (70-110)
[2022-09-11 17:57] LABS: D Dimer 3.45 ug/mIFEU (0-0.59)
[2022-09-11] MEDS: albumin 12.5 GM/50 ML VIAL IV (18:06)
[2022-09-11 20:03] LABS: Glucose Point of Care 92 mg/dL (70-110)
[2022-09-11] MEDS: heparin, porcine 1,000 unit/mL INJ 10 mL 10000 UNIT HE ×2 (20:03→20:05)
--- NOTE | 2022-09-11 22:21 | PC.HD ---
Addendum entered by Basil Dewey RN 09/11/22 23:41: Heparin 1000 unit loading dose and 1500 units/hr, total dose 7000units. Original Note: Pt's BP initially low, non-responsive to albumin admin so Levophed started per [facility]. BP improved with Levophed, however cath very positional with AP/DOCTORATE OF CHIROPRACTIC spiking and shutting off pump increasingly frequently throughout treatment neccessitating frequent flushing and increased heparin dose. Fluid removal goal not met due to cath function, Dr Barbosa notified.
--- NOTE | 2022-09-11 23:44 | PC.NURSE ---
Patient remains on ventilation with fi02 60%. Levophed required to maintain BP map >65. Propofol titrated down to help improve BP. Patient is more alert through shift and denies any pain.
[2022-09-12] VITALS (32 sets, daily range): BP systolic 105–163; BP diastolic 52–90; PULSE 75–93; RESP 20–22; TEMP 37–37.3; O2SAT 90–93; BMI 63.8
[2022-09-12] MEDS: propofol 1,000 MG/100 ML INJ 51.91 MG IV (00:10)
[2022-09-12] MEDS: piperacillin-tazobactam 2.25 GM in sodium chloride 0.9% (plus) 50 ML IV ×2 (00:10→07:30)
[2022-09-12 00:26] LABS: Glucose Point of Care 96 mg/dL (70-110)
[2022-09-12] MEDS: chlorhexidine gluconate 4% Btl 118 mL 1 APPLIC TOPICAL (01:51)
[2022-09-12] MEDS: bumetanide 0.25 mg/mL SDV 4 mL 2 MG IVP ×3 (02:18→18:03)
[2022-09-12] MEDS: heparin 5,000 unit/mL INJ 1 mL 5000 UNIT SUBCUT ×3 (02:18→18:03)
[2022-09-12] MEDS: albumin 25 G/100 ML BAG 60 G IV ×3 (02:18→18:03)
[2022-09-12] MEDS: propofol 1,000 MG/100 ML INJ 46.72 MG IV ×10 (02:35→22:37)
[2022-09-12] MEDS: ipratropium-albuterol 3 mL Neb INHALATION ×4 (02:59→20:19)
[2022-09-12 03:09] LABS: ABG PCO2 43.3 mmHg (35-45); ABG PH Result 7.39 (7.35-7.45); Alveolar-Arterial Oxygen Gradi 37.9 mmHg (5-10); Arterial Blood Gas Hematocrit 45.5 % (37-47); Base Excess ABG 0.6 mmol/L (-2.0-2.0); Blood Gas Sample Site Radial, left; Blood Gas Sample Type Arterial; Carboxyhemoglobin 1.3 %THgb (0.4-20.1); HGB O2 Sat 94.8 % (95-100); Ionized Calcium Level - ABG 1.1 mmol/L (1.1-1.4); Methemoglobin 0.9 % (0.4-1.5); Oxygen Device VENT; Oxygen Saturation ABG 96.9; PO2 ABG 84.3 mmHg (80.0-100.0); Potassium Level - ABG 4.4 mmol/L (3.5-5.0); Total Hemoglobin 14.8 g/dL (12-16)
[2022-09-12 04:53] LABS: Basophils % 0.5 %; Eosinophils # 0.2 10^3/uL (0.0-0.8); Eosinophils % 1.9 %; Hematocrit 46.2 % (37.0-47.0); Hemoglobin 14.3 g/dL (11.5-15.3); Lymphocytes % 25.6 %; Mean Corpuscular Hemoglobin 27.8 pg (28.0-34.0); Mean Corpuscular Volume 89.9 fl (81-99); Mean Platelet Volume 10.7 fL (7.4-10.4); Monocytes # 0.7 10^3/uL (0.2-0.9); Monocytes % 8.4 %; Neutrophils # 5.06 10^3/uL (1.8-7.7); Neutrophils % 63.3 %; Nucleated Red Blood Cells % 0 %; Platelet Count 182 10^3/cmm (130-400); Red Blood Count 5.14 10^6/uL (4.1-5.3); Red Cell Distribution Width 14.2 % (12.1-15.1)
[2022-09-12 05:15] LABS: Alanine Aminotransferase 15 U/L (0-33); Albumin Level 3.3 g/dL (3.5-5.2); Alkaline Phosphatase 60 U/L (35-105); Anion Gap 21.8 (5-19); Aspartate Amino Transferase 23 U/L (0-32); Blood Urea Nitrogen 48 mg/dL (6-20); Carbon Dioxide 25 mmol/L (22-29); Chloride 95 mmol/L (98-107); Cholesterol 140 mg/dL (0-200); Globulin 3.2 g/dL (1.3-4.6); Glomerular Filtration Rate 10.4 mL/min (90-130); Glucose 86 mg/dL (65-115); HDL Cholesterol 28 mg/dL (60-100); LDL Cholesterol Calculated 49 mg/dL (50-129); Osmolality Calculated 296 mOsm/kg (285-295); Potassium 4.8 mmol/L (3.5-5.1); Sodium 137 mmol/L (136-145); Total Bilirubin 0.8 mg/dL (0.15-1.2); Total Protein 6.5 g/dL (6.6-8.7); Triglycerides 313 mg/dL (0-150); VLDL Cholestrol Calculation 63 mg/dL (0-30)
[2022-09-12 05:19] LABS: Glucose Point of Care 88 mg/dL (70-110)
[2022-09-12] MEDS: levothyroxine 50 mcg Tablet PO (05:31)
[2022-09-12 05:32] LABS: Estmated Average Glucose 114; Hemoglobin A1C 5.6 % (4.0-6.0)
[2022-09-12 06:27] LABS: Vancomycin Random 18.7 ug/mL (20.0-40.0)
[2022-09-12 07:12] LABS: Glucose Point of Care 83 mg/dL (70-110)
[2022-09-12] MEDS: budesonide 0.5 mg/2 mL Neb INHALATION ×2 (08:00→20:18)
[2022-09-12] MEDS: pantoprazole 40 mg SDV IVP (08:24)
--- NOTE | 2022-09-12 09:00 | XR_ITS ---
WS: [id number] EXAMINATION: XR chest 1V portable [id number] REASON FOR EXAM: pneumonia ORDER DATE: 09/12/2022 9:00 AM Comparison: Portable chest, 09/11/2022, Findings: A right internal jugular venous dialysis catheter is unchanged. The tip appears to end in the superior vena cava just above the cavoatrial junction. No pneumothorax is seen. The endotracheal tube and nasogastric tube remain in the same position. The heart remains enlarged. Pulmonary vascular congestion has decreased somewhat. Left basal consolidation and/or effusion unchanged. XR/XR chest 1V portable [id number] IMPRESSION: Decreased pulmonary vascular congestion compared with previous
[2022-09-12] MEDS: albuterol 2.5 mg/3 mL Neb INHALATION (11:27)
[2022-09-12 12:27] LABS: Glucose Point of Care 98 mg/dL (70-110)
--- NOTE | 2022-09-12 13:19 | PC.NUTR ---
MD consult received. TF recommendation goal of Perative at 50ml/hr x 22 hrs with FWF 150ml q4hrs. Will provide 1430kcal, 74g protein, and 1769ml fluids. Additional 1233kcal provided from propofol. Meeting 100% est needs. If medically appropriate, for PPN, recommend PPN beginning at 13 ml/hr with goal rate of 83 ml/hr plus MV 10 ml/day, standard electrolytes, and 25 grams/125 mls fat emulsion. This will provide 1020 kcals + 250 kcals fat emulsion+ 1233 kcals from propofol or 92% Pt's estimated calorie needs and 85 grams protein or 115% Pt's estimated needs for protein.
[2022-09-12] MEDS: heparin, porcine 1,000 unit/mL INJ 10 mL 10000 UNIT HE (15:19)
--- NOTE | 2022-09-12 15:22 | P.PN_ITS ---
Subjective Subjective: Today morning seen with family at bedside. Patient is on propofol of 50 and fentanyl 150. Currently on Levophed of 6 being weaned down. Tolerated full session of dialysis well yesterday. Afebrile in last 24 hours. Mean have maintained over 65 with currently at 70. Currently on a ventilator s etting of FiO2 60%, PEEP of 10 with tidal volume of 400. Vitals/I&O/Wt Last Vital Signs Temp 98.7 F 09/12/22 07:53 Pulse 90 09/12/22 14:00 Resp 22 H 09/12/22 13:56 BP 119/67 09/12/22 11:31 Pulse Ox 90 09/12/22 13:56 O2 Del Method 09/12/22 13:50 O2 Flow Rate 6 09/08/22 09:00 FiO2 60 09/12/22 13:56 09/12/22 09/12/22 09/12/22 06:59 14:59 22:59 Intake Total 634.188 / 2540.668 719.683 / 719.683 Output Total 1800 / 5627 700 / 700 Balance -1165.812 / -3086.332 19.683 / 19.683 Weight last 48 hrs Weight 184.748 kg Weight 185.7 kg Weight 174.5 kg Physical Exam Narrative: Intubated sedated on mechanical ventilation. Well sedated today Const: COMMON NORMALS: patient oriented x3 HENMT: COMMON NORMALS: normocephalic, atraumatic and hearing grossly normal bilaterally HEAD & SCALP: normocephalic and atraumatic Resp: COMMON NORMALS: clear to auscultation bilaterally AUSCULTATION: clear to auscultation bilaterally OTHER: Diminished air entry bilaterally Cardio: COMMON NORMALS: regular rate, regular rhythm, S1 normal heart sound present, S2 normal heart sound present, No gallops present (Cardio), No murmurs present (Cardio), No rub (Cardio) and Peripheral pulses 2+ throughout RATE: regular rate RHYTHM: regular rhythm HEART SOUNDS: S1 normal heart sound present and S2 normal heart sound present PERIPHERAL PULSES: Peripheral pulses 2+ throughout GI: COMMON NORMALS: Normal to inspection, nondistended, normoactive bowel sounds present, Soft to palpation, non-tender, No hepatosplenomegaly present and no masses AUSCULTATION: Yes normoactive bowel sounds PALPATION: Yes Soft to palpation and Yes No hepatosplenomegaly present RECTAL EXAM: deferred Extremity: COMMON NORMALS: no clubbing, cyanosis or edema and no pedal edema Neuro: COMMON NORMALS: patient oriented x3 Skin: OTHER: Blister present in right dorsum of the hand secondary to infiltration of antibiotics 24 hours ago. Urinary Catheter Management: Cha: Cath Placed During This Visit: yes Reason for Continuing Indwelling Catheter: Accurate Measurement of Urinary Output in Critically Ill Patients Urinary Catheter Date of Insertion: 09/08/22 Urinary Catheter Time of Insertion: 10:29 Data 09/12/22 03:59 09/12/22 03:59 Micro: Microbiology 09/11/22 09:15 MRSA Culture - Final Nose 09/11/22 11:45 Gram Stain - Final Sputum - Endotracheal Tube Aspirate Sputum Culture - Preliminary 09/10/22 12:30 Urine Culture - Final Urine,Clean Catch A&P Assessment and plan (1) Sepsis: (2) Acute respiratory failure with hypoxia and hypercapnia: (3) Obstructive sleep apnea: (4) CHF (congestive heart failure): Qualifiers: Heart failure type: diastolic Heart failure chronicity: acute on chronic Qualified Code(s): I50.33 - Acute on chronic diastolic (congestive) heart failure (5) Pneumonia: (6) Acute kidney injury: (7) Hypertensive emergency: (8) Flash pulmonary edema: (9) Diarrhea: (10) Essential hypertension: Plan 42 year old female with known past medical history of hypertension noncompliant with antihypertensive medication, morbid obesity, was accepted as a direct transfer, she was initially admitted for the management of substernal chest pain, associated with acute onset of worsening shortness of breath. Assessment: Sepsis secondary to hospital-acquired pneumonia: Currently septic shock. Sepsis during admission which was ruled in with elevated white cell count, hypotensive, target organ dysfunction with increasing oxygen requirement and eventual intubation, need for vasopressor support, x-ray chest showing possible infiltrates. Wean Levophed while keeping mean arterial pressure over 65. Saturation over 92%. Continue with sedation with fentanyl and propofol for now. Sedation vacation in next 24 hours. Blood cultures so far negative. Urine Legionella, bacterial antigen negative. Urine culture benign. Sputum culture negative. MRSA swab negative. Discontinue vancomycin. Continue with Zosyn. Hypoxic and hypercapnic respiratory failure: Currently intubated. Most likely in setting of decompensated congestive heart failure in setting of hypertensive emergency and acute kidney dysfunction in setting of obstructive sleep apnea and possible pneumonia. Continue with Bumex to 2 mg 3 times daily. Most likely patient will need daily dialysis for now with target net negative from around 7 to 8 L. Fluid restriction as much as possible. Strict input output charting, daily weights. Echocardiogram done during hospitalization shows EF of 60% with grade 1 diastolic dysfunction. Patient will need an outpatient sleep study to quantify sleep apnea. Patient will most likely need to be extubated and discharged on BiPAP. Hypertension with hypertensive emergency with flash pulmonary edema on admission: Resolved Blood pressure is better controlled. We will continue to monitor blood pressures and start treatment accordingly. Goal blood pressure less than 140/ 90 mmHg with mean over 65 Monitor x-ray chest BRIDGETTE : Possibly secondary to ATN secondary to sepsis, in the setting of acute hypotension, versus possibly secondary to antihypertensive effects. Possible contrast-induced nephropathy as she has received a CTA recently, possible AIN Urine output appropriate. Renal functions continue to worsen. Appreciate nephrology recommendation. Continue daily dialysis. Given patient being ventilator dependent with difficult extubation given multiple comorbidities it would be best for patient to be as net negative as possible. Continue with Bumex as above. Monitor BMP daily for now. Right upper extremity swelling: DVT ruled out. Does have blister on the dorsum of right hand due to infiltration of IV antibiotics. Continue to monitor. Sedation: Propofol and fentanyl Glycemic control: Not needed. Check A1c. Hypoglycemia protocol Nutrition: Continue on tube feeds at 10 cc/h increasing to 10 cc every 4 hours with goal of 60 cc/h. 100 cc every 4 hours free water flushes. CODE STATUS: Discussed in detail with patient mother and who is the DPOA at bedside. Patient is full code. We discussed need for dialysis for quick improvement. Family verbalized understanding and are agreeable. PUD prophylaxis: Protonix DVT prophylaxis:Heparin 5000 SQ Q8h Discharge planning: We will plan on discharge to home versus SNF as per clinical improvement going forward once patient is extubated. Patient will need sleep study as an outpatient and possible discharge on BiPAP. Continue with care at ICU Plan for care: Sedation vacation in next 24 hours. Plan for continued daily dialysis for now for a possible net 6 to 7 L negative with plan for weaning trial in next 24 to 48 hours depending on clinical improvement. Continue Zosyn to finish a 7-day course. Wean off Levophed keeping mean over 65. Continue with IV albumin every 8 hourly. Continue with tube feeds while we reach goal This documentation was created by [employer] sign writer hand software. Every effort was made to ensure accuracy of sign writer hand. Any obvious errors or omissions should be clarified with the author of the document. Attestations Medical Necessity Statement*: Requires further hospitalization for management of septic shock, hypoxic and hypercapnic respiratory failure and a ventilator dependent morbidly obese female with possibility of severe sleep apnea, acute kidney injury requiring hemodialysis Procedures Arterial Line Size (Gauge): 20 Coding Level of Care Code Critical Care >/= 30 minutes Critical care time (in minutes): 90 The high probability of a clinically significant, sudden or life threatening deterioration, as referenced in this documentation, required my full and direct attention, intervention and personal management. The critical care time shown is in addition to time spent performing any reported separately billable procedures and includes the following: [x] Data and vital sign review and interpretation [x ] Patient assessment, examination and intervention [x] Medication orders and management [x] Patient/Family updates as able [x] Care Coordination and Documentation. Other Coding Information This patient has a high probability of clinically significant, sudden or life threatening deterioration of the patient's (pulmonary/cardiac/renal) systems required my full, direct attention, the highest level of physician preparedness for urgent intervention and personal management. I managed/supervised life or organ supporting interventions that required frequent physician assessment. I devoted my full attention in the ICU to the direct care of this patient for the period of time indicated above. Time I spent with family or surrogate(s) is included only if the patient was incapable of providing necessary information or participating in decision making. This time includes the following services provided: Telemetry review Mechanical Ventilation Hemodynamic interpretation, assessment and management Review and interpretation of CXR Review and interpretation of lab values Review and interpretation of microbiologic data and culture results Review of medications and administration Review and interpretation of Nutrition requirements and management Discussion of management with other consultants and services Clinical update to family members Diagnoses Sepsis A41.9 Acute respiratory failure with hypoxia and hypercapnia J96.01; J96.02 Obstructive sleep apnea G47.33 CHF (congestive heart failure) I50.33 Heart failure type: diastolic Heart failure chronicity: acute on chronic Pneumonia J18.9 Acute kidney injury N17.9 Hypertensive emergency I16.1 Flash pulmonary edema J81.0 Diarrhea R19.7 Essential hypertension I10
[2022-09-12 16:51] LABS: Glucose Point of Care 89 mg/dL (70-110)
[2022-09-12] MEDS: heparin, porcine 1,000 unit/mL INJ 10 mL 10000 UNIT INTRACATH (17:06)
--- NOTE | 2022-09-12 18:35 | PM.PN ---
Subjective Subjective: events noted Medications: Reviewed: Yes Vitals/I&O/Wt Last Vital Signs Temp 98.7 F 09/12/22 07:53 Pulse 87 09/12/22 15:34 Resp 22 H 09/12/22 17:31 BP 105/65 09/12/22 15:34 Pulse Ox 91 09/12/22 17:31 O2 Del Method 09/12/22 15:34 O2 Flow Rate 6 09/08/22 09:00 FiO2 60 09/12/22 17:31 09/12/22 09/12/22 09/12/22 06:59 14:59 22:59 Intake Total 634.188 / 2540.668 719.683 / 719.683 589.669 / 1309.352 Output Total 1800 / 5627 700 / 700 425 / 1125 Balance -1165.812 / -3086.332 19.683 / 19.683 164.669 / 184.352 Weight last 48 hrs Weight 184.748 kg Weight 185.7 kg Weight 174.5 kg Physical Exam Narrative: Patient intubated, sedated, no acute distress Edema bilateral lower extremities Clear to auscultation per report Urinary Catheter Management: Cha: Cath Placed During This Visit: yes Reason for Continuing Indwelling Catheter: Accurate Measurement of Urinary Output in Critically Ill Patients Urinary Catheter Date of Insertion: 09/08/22 Urinary Catheter Time of Insertion: 10:29 Data 09/12/22 03:59 09/12/22 03:59 Micro: Microbiology 09/11/22 09:15 MRSA Culture - Final Nose 09/11/22 11:45 Gram Stain - Final Sputum - Endotracheal Tube Aspirate Sputum Culture - Preliminary 09/10/22 12:30 Urine Culture - Final Urine,Clean Catch A&P Assessment and plan (1) Acute kidney injury: Plan 1. Acute kidney injury. Different includes contrast nephropathy, sepsis, acute interstitial nephritis, hemodynamic. . Due to high O2 requirement and worsening renal function patient was started on HD-status post 2 sessions. Baseline creatinine was normal prior to admission at 0.5. 2. Volume overload: continue IV bumex 1 mg Q12h, will consider HD if no adequate diuresis 3. Primary respiratory acidosis, hypercapneic respiratory failure on ventilator, Recommend: continue to hold vanco, check level daily. Attestations Medical Necessity Statement*: Requires further hospitalization for management of septic shock, hypoxic and hypercapnic respiratory failure and a ventilator dependent morbidly obese female with possibility of severe sleep apnea, acute kidney injury requiring hemodialysis Procedures Arterial Line Size (Gauge): 20 Coding Level of Care Code Acute Code for Chg Fwd Diagnoses Acute kidney injury N17.9
--- NOTE | 2022-09-12 19:26 | P.PN_ITS ---
Subjective Subjective: Yesterday evening she had hemodialysis and drained about 1000 cc fluid -She has been making urine at 100 cc/h on Bumex 2 Mg 3 times daily -On ventilator she is still requiring FiO2 60%-currently on propofol 45 mcg and fentanyl 150 mcg -Opens eyes and follows commands -Overall clinically unchanged -Other labs and imaging reviewed-chest x-ray appears less congested today on left side Medications: Reviewed: Yes Medication Review Details: Generic Name Dose Route Start Last Admin Trade Name Luisq PRN Reason Stop Dose Admin Acetaminophen 650 mg 09/06/22 10:41 09/07/22 04:50 Acetaminophen 32 5 Mg Tablet PO 650 mg Q6H PRN Administration Mild/Mod Pain Or Temp >/= 101 Albuterol/Ipratrop ium 3 ml 09/06/22 10:45 09/10/22 08:21 Ipratropium-Albu terol 3 Ml Neb INHALATION 3 ml Q6H.RESP PRN Administration SHORTNESS OF KVNG TH Chlorhexidine Gluc millie 1 applic 09/10/22 01:00 09/10/22 04:17 Chlorhexidine Gl uconate 4% Btl 118 Ml TOPICAL Not Given 0100 [place] Heparin Sodium (Po rcine) 5,000 unit 09/06/22 10:45 09/10/22 11:01 Heparin 5,000 Un it/Ml Inj 1 Ml SUBCUT 5,000 unit Q8H [place] Administration Norepinephrine Bit artrate 4 mg 254 mls @ 0 mls/h r 09/07/22 22:30 09/08/22 13:45 / Dextrose IV Infused .Q0M [place] Titration Protocol Per Protocol Norepinephrine Bit artrate 8 mg 508 mls @ 0 mls/h r 09/08/22 11:30 09/09/22 10:04 / Dextrose IV 0 mcg/min .Q0M ST[place]ING 0 mls/hr Titration Protocol Per Protocol Propofol 1,000 mg in 100 m ls @ 0 mls/hr 09/09/22 03:45 09/10/22 08:33 Diprivan IV 30 mcg/kg/min .Q0M [place] 31.14 mls/hr Administration Protocol Per Protocol Fentanyl 2,500 mcg / Sodium 250 mls @ 0 mls/h r 09/09/22 04:45 09/09/22 13:56 Chloride IV 30 mcg/hr .Q0M ST[place] 3 mls/hr Titration Protocol Per Protocol Piperacillin Sod/T azobactam 50 mls @ 12.5 mls /hr 09/10/22 08:00 09/10/22 07:58 Sod 2.25 gm/ Sod ium Chloride IV 12.5 mls/hr Q8H [place] Administration Ondansetron HCl 4 mg 09/06/22 10:41 09/08/22 16:34 Ondansetron 2 Mg /Ml Sdv 2 Ml IVP 4 mg Q8H PRN Administration vomiting, or N/V if npo Vitals/I&O/Wt Last Vital Signs Temp 98.8 F 09/12/22 18:54 Pulse 84 09/12/22 18:54 Resp 20 H 09/12/22 18:54 BP 106/64 09/12/22 18:54 Pulse Ox 91 09/12/22 17:31 O2 Del Method 09/12/22 15:34 O2 Flow Rate 6 09/08/22 09:00 FiO2 60 09/12/22 17:31 09/12/22 09/12/22 09/12/22 06:59 14:59 22:59 Intake Total 634.188 / 2540.668 719.683 / 894.289 6088.527 / 2380.210 Output Total 1800 / 5627 700 / 700 3973 / 4673 Balance -1165.812 / -3086.332 19.683 / 19.683 -2312.473 / -2292.790 Weight last 48 hrs Weight 406 lb 1.463 oz Weight 407 lb 4.8 oz Weight 409 lb 6.374 oz Weight 384 lb 11.306 oz Physical Exam Narrative: PHYSICAL EXAM: General: Morbidly obese, young female, lying in bed, sedated and intubated. HEENT:NCAT, PERRLA, EOMI Neck: Supple Lungs: Bilateral diffuse crackles Heart: s1/s2, RRR Abd: soft, NT, ND, BS + Normoactive Extremities: No edema, right forearm infiltrated INSTRUCTIONAL SUPPORT SERVICES DIRECTOR: sedated and limited INSTRUCTIONAL SUPPORT SERVICES DIRECTOR exam possible. SKIN: no rash LDA: # HD Cath : Right IJ 09/11/2022 # A line: 09/08/2022 left radial artery #CVC: Right femoral line 09/08/2022 Urinary Catheter Management: Cha: Cath Placed During This Visit: yes Reason for Continuing Indwelling Catheter: Accurate Measurement of Urinary Output in Critically Ill Patients Urinary Catheter Date of Insertion: 09/08/22 Urinary Catheter Time of Insertion: 10:29 Data 09/12/22 03:59 09/12/22 03:59 Other Labs: Radiology Impressions Duplex Scan Upper Extremity Artery 09/08/22 20:22 IMPRESSION: 1. No evidence for major vessel occlusion or significant stenosis. 2. Other details discussed above. Venous Duplex 09/08/22 20:31 IMPRESSION: No evidence of acute right upper extremity DVT. Renal Ultrasound 09/09/22 05:33 IMPRESSION: 1. No hydronephrosis of either kidney. 2. Technologist notes somewhat limited evaluation of the kidneys, due to patient condition and body habitus. 3. Other details discussed above. Chest X-Ray 09/12/22 09:00 IMPRESSION: Decreased pulmonary vascular congestion compared with previous Laboratory Results WBC 8.0 10^3/uL (4.0-10.0) 09/12/22 03:59 RBC 5.14 10^6/uL (4.1-5.3) 09/12/22 03:59 Hgb 14.3 g/dL (11.5-15.3) 09/12/22 03:59 Hct 46.2 % (37.0-47.0) 09/12/22 03:59 MCV 89.9 fl (81-99) 09/12/22 03:59 MCH 27.8 pg (28.0-34.0) L 09/12/22 03:59 MCHC 31.0 g/dL (30.0-36.0) 09/12/22 03:59 RDW 14.2 % (12.1-15.1) 09/12/22 03:59 Plt Count 182 10^3/cmm (130-400) 09/12/22 03:59 MPV 10.7 fL (7.4-10.4) H 09/12/22 03:59 Neut % (Auto) 63.3 % 09/12/22 03:59 Lymph % (Auto) 25.6 % 09/12/22 03:59 Lewis % (Auto) 8.4 % 09/12/22 03:59 Eos % (Auto) 1.9 % 09/12/22 03:59 Baso % (Auto) 0.5 % 09/12/22 03:59 Neut # (Auto) 5.06 10^3/uL (1.8-7.7) 09/12/22 03:59 Lymph # (Auto) 2.0 10^3/uL (0.8-4.8) 09/12/22 03:59 Lewis # (Auto) 0.7 10^3/uL (0.2-0.9) 09/12/22 03:59 Eos # (Auto) 0.2 10^3/uL (0.0-0.8) 09/12/22 03:59 Baso # (Auto) 0.0 10^3/uL (0.0-0.1) 09/12/22 03:59 Nucleated RBC % (auto) 0 % 09/12/22 03:59 Nucleated RBCs # 0.0 /100WBC 09/12/22 03:59 D-Dimer 3.45 ug/mIFEU (0-0.59) H 09/11/22 17:27 Specimen Type Arterial 09/12/22 04:00 Sample Site Radial, left 09/12/22 04:00 ABG pH 7.39 (7.35-7.45) 09/12/22 04:00 ABG pCO2 43.3 mmHg (35-45) 09/12/22 04:00 ABG pO2 84.3 mmHg (80.0-100.0) 09/12/22 04:00 ABG HCO3 26.0 mmol/L (22-26) 09/12/22 04:00 ABG O2 Saturation 96.9 09/12/22 04:00 ABG Base Excess 0.6 mmol/L (-2.0-2.0) 09/12/22 04:00 Haider Test N/a 09/12/22 04:00 A-a O2 Gradient 37.9 mmHg (5-10) H 09/12/22 04:00 Hematocrit 45.5 % (37-47) 09/12/22 04:00 Hgb O2 Saturation 94.8 % (95-100) L 09/12/22 04:00 Carboxyhemoglobin 1.3 %THgb (0.4-20.1) 09/12/22 04:00 Methemoglobin 0.9 % (0.4-1.5) 09/12/22 04:00 Total Hemoglobin 14.8 g/dL (12-16) 09/12/22 04:00 Sodium 143.0 mmol/L (131-143) 09/12/22 04:00 Potassium 4.4 mmol/L (3.5-5.0) 09/12/22 04:00 Glucose 80.0 mg/dL (70-115) 09/12/22 04:00 Ionized Calcium 1.1 mmol/L (1.1-1.4) 09/12/22 04:00 O2 Delivery Device Vent 09/12/22 04:00 O2 Liters/Min 7.0 % 09/08/22 15:57 FiO2 60.0 % 09/12/22 04:00 Tidal Volume 0.40 09/12/22 04:00 PEEP 10.0 cmH20 09/12/22 04:00 Glycerin Operator ID chava 09/12/22 04:00 Sodium 137 mmol/L (136-145) 09/12/22 03:59 Potassium 4.8 mmol/L (3.5-5.1) 09/12/22 03:59 Chloride 95 mmol/L (98-107) L 09/12/22 03:59 Carbon Dioxide 25 mmol/L (22-29) 09/12/22 03:59 Anion Gap 21.8 (5-19) H 09/12/22 03:59 BUN 48 mg/dL (6-20) H 09/12/22 03:59 Creatinine 4.6 mg/dL (0.5-0.9) H 09/12/22 03:59 GFR Calculation 10.4 mL/min (90-130) L 09/12/22 03:59 Glucose 86 mg/dL (65-115) 09/12/22 03:59 POC Glucose 89 mg/dL (70-110) 09/12/22 16:49 Estimat Average Glucose 114 09/12/22 03:59 Hemoglobin A1c 5.6 % (4.0-6.0) 09/12/22 03:59 Calculated Osmolality 296 mOsm/kg (285-295) H 09/12/22 03:59 Lactic Acid 1.6 mmol/L (0.5-2.2) 09/08/22 09:06 Calcium 9.0 mg/dL (8.5-10.5) 09/12/22 03:59 Phosphorus 5.9 mg/dL (2.5-4.5) H 09/11/22 05:57 Magnesium 2.1 mg/dL (1.7-2.3) 09/07/22 04:38 Iron 46 ug/dL (37-145) 09/11/22 05:57 TIBC 271 mcg/dl 09/11/22 05:57 % Saturation 16.9 % (20-50) L 09/11/22 05:57 Unsat Iron Binding 225 ug/dL (112-347) 09/11/22 05:57 Total Bilirubin 0.8 mg/dL (0.15-1.2) 09/12/22 03:59 AST 23 U/L (0-32) 09/12/22 03:59 ALT 15 U/L (0-33) 09/12/22 03:59 Alkaline Phosphatase 60 U/L (35-105) 09/12/22 03:59 Creatine Kinase 225 U/L (26-192) H 09/10/22 03:30 CK-MB (CK-2) 14.9 ng/mL (0-5.34) H 09/10/22 03:30 CK-MB (CK-2) Rel Index 6.6 % (0.0-10.4) 09/10/22 03:30 NT-Pro-B Natriuret Pep 1494 pg/mL (0-125) H 09/11/22 05:57 Total Protein 6.5 g/dL (6.6-8.7) L D 09/12/22 03:59 Albumin 3.3 g/dL (3.5-5.2) L 09/12/22 03:59 Globulin 3.2 g/dL (1.3-4.6) 09/12/22 03:59 Triglycerides 313 mg/dL (0-150) H 09/12/22 03:59 Cholesterol 140 mg/dL (0-200) 09/12/22 03:59 LDL Cholesterol, Calc 49 mg/dL (50-129) L 09/12/22 03:59 Total VLDL Cholesterol 63 mg/dL (0-30) H 09/12/22 03:59 HDL Cholesterol 28 mg/dL (60-100) L 09/12/22 03:59 Cholesterol/HDL Ratio 5.00 mg/dL (0.0-4.40) H 09/12/22 03:59 Vitamin B12 514 pg/mL (232-1245) 09/11/22 05:57 Folate 8.9 ng/mL (4.8-37.3) 09/11/22 05:57 Procalcitonin 0.35 ng/mL (0-0.5) 09/08/22 09:06 TSH 16.86 uIU/mL (0.27-4.20) H 09/11/22 05:57 Free T4 0.92 ng/dL (0.82-1.77) 09/11/22 05:57 Free T3 2.2 PG/ML (2.0-4.4) 09/11/22 05:57 Urine Color Straw (Yellow) 09/10/22 12:30 Urine Appearance Clear (CLEAR) 09/10/22 12:30 Urine pH 5 (5-7) 09/10/22 12:30 Ur Specific [place] 1.005 (1.005-1.030) 09/10/22 12:30 Urine Protein Neg (Negative) 09/10/22 12:30 Urine Glucose (UA) Norm (Normal) 09/10/22 12:30 Urine Ketones Negative (Negative) 09/10/22 12:30 Urine Blood 3+ (Negative) H 09/10/22 12:30 Urine Nitrate Negative (Negative) 09/10/22 12:30 Urine Bilirubin Neg (Negative) 09/10/22 12:30 Urine Urobilinogen Norm mg/dL (Negative) 09/10/22 12:30 Ur Leukocyte Esterase 2+ (Negative) H 09/10/22 12:30 Urine RBC 15-25 /hpf (0-2) H 09/10/22 12:30 Urine WBC 25-40 /hpf (0-5) H 09/10/22 12:30 Ur Squamous Epith Cells 5-10 /hpf (0-5) H 09/10/22 12:30 Ur Transition Epith Cell 0-4 /hpf 09/10/22 12:30 Amorphous Sediment Not Reportable 09/10/22 12:30 Urine Bacteria 1+ /hpf (NONE) H 09/10/22 12:30 Ur Random Sodium 93 mmol/L 09/09/22 01:10 Urine Creatinine 51 mg/dL (28-217) 09/09/22 01:10 Nasal Influ A H1 2009 PCR Not detected (NOT DETECT) 09/08/22 08:45 Random Vancomycin 18.7 ug/mL (20.0-40.0) L 09/12/22 03:59 Adenovirus (PCR) Not detected (NOT DETECT) 09/08/22 08:45 C. pneumoniae DNA (PCR) Not detected (NOT DETECT) 09/08/22 08:45 Coronavirus 229E (PCR) Not detected (NOT DETECT) 09/08/22 08:45 Hepatitis A IgM Ab Non-reactive (Nonreactive) 09/11/22 05:57 Hep Bs Antigen Non-reactive (Nonreactive) 09/11/22 05:57 Hep Bs Antibody 12.8 (11.5-1000) 09/11/22 05:57 Hep B Core Total Ab Non-reactive (Nonreactive) 09/11/22 05:57 Hepatitis C Antibody Non-reactive (Nonreactive) 09/11/22 05:57 Human Metapneumovir PCR Not detected (NOT DETECT) 09/08/22 08:45 Influenza A (H1) PCR Not detected (NOT DETECT) 09/08/22 08:45 Influenza A (H3) PCR Not detected (NOT DETECT) 09/08/22 08:45 Influenza Type A (PCR) Not detected (NOT DETECT) 09/08/22 08:45 Influenza Type B (PCR) Not detected (NOT DETECT) 09/08/22 08:45 M. pneumoniae (PCR) Not detected (NOT DETECT) 09/08/22 08:45 Parainfluenza 1 (PCR) Not detected (NOT DETECT) 09/08/22 08:45 Parainfluenza 2 (PCR) Not detected (NOT DETECT) 09/08/22 08:45 Parainfluenza 3 (PCR) Not detected (NOT DETECT) 09/08/22 08:45 Parainfluenza 4 (PCR) Not detected (NOT DETECT) 09/08/22 08:45 RSV Type A (PCR) Not detected (NOT DETECT) 09/08/22 08:45 RSV Type B (PCR) Not detected (NOT DETECT) 09/08/22 08:45 Entero/Rhino (PCR) Not detected (NOT DETECT) 09/08/22 08:45 SARS-CoV-2 (PCR) Not detected (NOT DETECT) 09/08/22 08:45 Micro: Microbiology 09/11/22 09:15 MRSA Culture - Final Nose 09/11/22 11:45 Gram Stain - Final Sputum - Endotracheal Tube Aspirate Sputum Culture - Preliminary 09/10/22 12:30 Urine Culture - Final Urine,Clean Catch A&P Assessment and plan (1) Acute respiratory failure with hypoxia and hypercapnia: (2) Obstructive sleep apnea: (3) Pneumonia: (4) Flash pulmonary edema: (5) Hypertensive emergency: (6) Acute kidney injury: Plan ASSESSMENT/PLAN:Overall: 42-year-old young female with past medical history of hypertension-noncompliant with her medications-initially comes with hypertensive emergency with flash pulmonary edema-treated with nicardipine drip-becomes hypotensive-started on pressors and antibiotics for presumed sepsis. She went into respiratory failure requiring mechanical ventilation support. She also developed BRIDGETTE requiring temporary hemodialysis. NEURO: #Sedation-currently on fentanyl and propofol gtt. -Follows commands -Adjust to maintain RASS -2 -We will continue with awakening trials PULM: #Acute hypoxic and hypercapnic respiratory failure-probably there is a chronic component given her morbid obesity -Acute component secondary to flash pulmonary edema due to hypertensive emergency -Currently she is intubated on mechanical ventilation-CMV 400/60% FiO2/PEEP of 10-ABG today morning 7.3 9/43/84/26/96% -She is on scheduled nebulization with DuoNeb as well as Pulmicort -Currently she is on Bumex 2 Mg Q8 over follow-up fluid overload-and temporary hemodialysis as per renal team -We will continue with awakening and breathing trials once FiO2 is down to 50% CVS: #Hypertensive emergency-treated with nicardipine drip-resolved #Circulatory shock-likely secondary to possible nicotine toxicity or demand ischemia due to underlying? Sepsis-shock resolved -Currently off pressors -She may need pressor support during hemodialysis -Echocardiogram during admission showed normal LV size, systolic function with EF 60%. Grade 1 diastolic dysfunction. -Elevated BNP -We will continue with Bumex 2 Mg every 8 hours and fluid removal through temporary hemodialysis -Continue close hemodynamic and cardiac monitoring GI: #Diet: Please start TF nephro at 15-20 cc/hour #GI prophylaxis: PPI #LFTs: Within normal limits RENAL: #BRIDGETTE-most likely prerenal secondary to ischemic ATN due to hypotension/? Contrast-induced nephropathy -Worsening creatinine and BUN -Electrolytes and bicarb within normal limits -Adequate urine output -Currently on Bumex 2 Mg 3 times daily and temporary hemodialysis for fluid removal as per nephro team HEM: #Leukocytosis-improving #H&H stable #Normal platelets ENDO: #Significantly elevated TSH-suspect hypothyroidism-patient on levothyroxine 50 mcg q. p.o. daily-she may need to follow-up as outpatient #Normal blood sugars ID: #Presumably met sepsis criteria -Pulmonary infiltrates on imaging-with leukocytosis-and hypotension-there was a suspicion if it is all septic shock secondary to pneumonia; -However infiltrates can be explained with fluid overload, hypotension secondary to need Cardene drip -Patient procalcitonin is low -So far cultures are negative, and MRSA nares negative-final cultures pending -Discontinued vancomycin, patient is currently on Zosyn Code Status: Full code Disposition: ICU Critically ill: Yes MD discussed with: Hospitalist, RN, RT taking care of the patient ICU CHECKLIST: Problem list updated Verbal orders reviewed and signed Analgesia: Fentanyl Glycemic Control: N/A Nutrition: Recommended TF nephro if available Restraint Renewal (within 24 hrs): Yes Ulcer Prophylaxis: PPI Chemical Thromboprophylaxis: Prophylaxis: Heparin subcu Mechanical Thromboprophylaxis: SCDs Need for Central line: Yes for multiple medications Need for Cha catheter: Yes for urine output monitoring Attestations Medical Necessity Statement*: Acute hypoxic/hypercapnic respiratory failure secondary to fluid overload due to hypertensive emergency-requiring mechanical ventilation; will continue to monitor at least 48 hours in ICU Critical Care Time: This patient has a high probability of? clinically sig nificant, sudden o r life threatening deterioration of the patient's (jonathan rological/pulmonar y/cardiac/renal/ID /endocrine) system s required my full , direct attention , the highest leve l of physician pre paredness for urge nt intervention an d personal managem ent.? I managed/meade pervised life or o rgan supporting in terventions that r equired frequent p hysician assessmen t.? I devoted my f ull attention in t he ICU to the dire ct care of this pa tient for the kareen od of time indicat ed above.? Time I spent with family or surrogate(s) is included only if the patient was in capable of providi ng necessary infor mation or particip ating in decision making.? This annie e includes the [facility] services pr ovided: Telemetry review Mechanical Ventilation Hemod ynamic interpretat ion, assessment an d management Revie w and interpretati on of CXR Review a nd interpretation of lab values Revi ew and interpretat ion of microbiolog ic data and cultur e results Review o f medications and administration Rev iew and interpreta tion of Nutrition requirements and m anagement Discussi on of management w ith other consulta nts and services C linical update to family members [x ] Data and vital s ign review and int erpretation [x] Segun humphrey assessment, examination and in tervention [x] Doc umentation [x] Med ication orders and management Time spent for teaching as well as perfor aydin procedures ar e billed separatel y and is not inclu ded in this note ? Critical Care Annie e (min): 53 Procedures Arterial Line Size (Gauge): 20 Coding Level of Care Code Critical Care >/= 30 minutes Diagnoses Acute respiratory failure with hypoxia and hypercapnia J96.01; J96.02 Obstructive sleep apnea G47.33 Pneumonia J18.9 Flash pulmonary edema J81.0 Hypertensive emergency I16.1 Acute kidney injury N17.9 Time Spent (min) 53
[2022-09-12] MEDS: piperacillin-tazobactam 3.375 GM in sodium chloride 0.9% (plus) 50 ML IV (20:17)
[2022-09-12 20:30] LABS: Glucose Point of Care 112 mg/dL (70-110)
[2022-09-12] MEDS: artificial tears Op Oint 3.5 gm 1 APPLIC EYE-BOTH (23:15)
[2022-09-13] VITALS (51 sets, daily range): BP systolic 98–142; BP diastolic 44–97; PULSE 73–110; RESP 22–26; TEMP 36.5–37.2; O2SAT 85–94; BMI 70.5
[2022-09-13] MEDS: propofol 1,000 MG/100 ML INJ 46.72 MG IV ×8 (00:37→19:08)
[2022-09-13 00:38] LABS: Glucose Point of Care 122 mg/dL (70-110)
[2022-09-13] MEDS: ipratropium-albuterol 3 mL Neb INHALATION ×6 (00:59→23:24)
[2022-09-13] MEDS: bumetanide 0.25 mg/mL SDV 4 mL 2 MG IVP ×3 (01:44→17:26)
[2022-09-13] MEDS: heparin 5,000 unit/mL INJ 1 mL 5000 UNIT SUBCUT ×3 (01:45→17:25)
[2022-09-13] MEDS: albumin 25 G/100 ML BAG 60 G IV ×3 (01:45→17:27)
[2022-09-13 03:24] LABS: Basophils % 0.5 %; Eosinophils # 0.1 10^3/uL (0.0-0.8); Eosinophils % 2.1 %; Hematocrit 44.4 % (37.0-47.0); Hemoglobin 13.7 g/dL (11.5-15.3); Lymphocytes # 1.2 10^3/uL (0.8-4.8); Lymphocytes % 19.7 %; Mean Corpuscular HGB Conc 30.9 g/dL (30.0-36.0); Mean Corpuscular Hemoglobin 28.2 pg (28.0-34.0); Mean Corpuscular Volume 91.5 fl (81-99); Mean Platelet Volume 10.6 fL (7.4-10.4); Monocytes # 0.7 10^3/uL (0.2-0.9); Monocytes % 10.4 %; Neutrophils # 4.21 10^3/uL (1.8-7.7); Nucleated Red Blood Cells % 0 %; Platelet Count 165 10^3/cmm (130-400); Red Blood Count 4.85 10^6/uL (4.1-5.3); Red Cell Distribution Width 14.4 % (12.1-15.1); White Blood Count 6.3 10^3/uL (4.0-10.0)
[2022-09-13 03:48] LABS: Alanine Aminotransferase 25 U/L (0-33); Albumin Level 3.6 g/dL (3.5-5.2); Alkaline Phosphatase 69 U/L (35-105); Anion Gap 19.4 (5-19); Aspartate Amino Transferase 83 U/L (0-32); Blood Urea Nitrogen 34 mg/dL (6-20); Calcium 9.1 mg/dL (8.5-10.5); Carbon Dioxide 25 mmol/L (22-29); Chloride 98 mmol/L (98-107); Glomerular Filtration Rate 12.6 mL/min (90-130); Glucose 106 mg/dL (65-115); Osmolality Calculated 294 mOsm/kg (285-295); Potassium 4.4 mmol/L (3.5-5.1); Sodium 138 mmol/L (136-145); Total Bilirubin 0.7 mg/dL (0.15-1.2); Total Protein 6.6 g/dL (6.6-8.7)
[2022-09-13] MEDS: chlorhexidine gluconate 4% Btl 118 mL 1 APPLIC TOPICAL (03:57)
[2022-09-13 04:16] LABS: Glucose Point of Care 109 mg/dL (70-110)
[2022-09-13] MEDS: levothyroxine 50 mcg Tablet PO (05:13)
[2022-09-13 05:58] LABS: ABG PCO2 52.4 mmHg (35-45); ABG PH Result 7.33 (7.35-7.45); Alveolar-Arterial Oxygen Gradi 46.6 mmHg (5-10); Base Excess ABG 0.3 mmol/L (-2.0-2.0); Blood Gas Operator Identificat JB; Blood Gas Sample Site Not specified; Blood Gas Sample Type Arterial; Carboxyhemoglobin 1.3 %THgb (0.4-20.1); HCO3 ABG 27.2 mmol/L (22-26); HGB O2 Sat 93.4 % (95-100); Ionized Calcium Level - ABG 1.2 mmol/L (1.1-1.4); Methemoglobin 0.9 % (0.4-1.5); Oxygen Device VENT; Oxygen Saturation ABG 95.5; PO2 ABG 76.2 mmHg (80.0-100.0); Potassium Level - ABG 4.2 mmol/L (3.5-5.0)
[2022-09-13] MEDS: piperacillin-tazobactam 3.375 GM in sodium chloride 0.9% (plus) 50 ML IV (07:48)
[2022-09-13] MEDS: pantoprazole 40 mg SDV IVP (07:48)
[2022-09-13 08:06] LABS: Glucose Point of Care 110 mg/dL (70-110)
--- NOTE | 2022-09-13 10:26 | CTR_ITS ---
PROCEDURE INFORMATION: Exam: CTA Chest With Contrast Exam date and time: 09/13/2022 1:09 PM Age: 42 years old Clinical indication: Shortness of breath; Additional info: SOB, intubated TECHNIQUE: Imaging protocol: Computed tomographic angiography of the chest with contrast. 3D rendering (Not supervised by radiologist): MIP and/or 3D reconstructed images were created by the technologist. Radiation optimization: All CT scans at this facility use at least one of these dose optimization techniques: automated exposure control; mA and/or kV adjustment per patient size (includes targeted exams where dose is matched to clinical indication); or iterative reconstruction. Contrast material: OMNI 350; Contrast volume: 200 ml; Contrast route: INTRAVENOUS (IV); REPORTING DATA: Count of CT and Cardiac NM exams in prior 12 months: This patient has received 0 known CTs and 0 known cardiac nuclear medicine studies in the 12 months prior to the current study. COMPARISON: CR (CHEST, ) 09/09/2022 4:04 AM RADIATION DOSE METRICS: Total DLP (mGy-cm): 2026. FINDINGS: Limitations: Extensive artifact related to CT bore contact limits assessment of the thorax and upper abdomen. Tubes, catheters and devices: There is a right internal jugular central venous catheter appropriately positioned with the tip in the lower SVC near the cavoatrial junction. The endotracheal tube is appropriately positioned in the distal thoracic trachea with the tip above the maynor. The nasogastric tube is appropriately positioned with the tip in the stomach, well beyond the diaphragmatic hiatus. Pulmonary arteries: The main pulmonary artery is dilated to 4.4 cm. Right and left pulmonary arteries are poorly visualized. Nondiagnostic assessment for pulmonary embolism. Aorta: The aorta is unremarkable. There is no aneurysm. Lungs: There is partial atelectasis of the left upper lobe and complete atelectasis of both lower lobes. The aerated portion of the right lung is clear. Pleural spaces: Assessment for pleural effusion is limited. There is no large effusion. Heart: There is moderate cardiac enlargement. Lymph nodes: Enlarged lymph nodes in the gastrohepatic ligament and lexus hepatis are incompletely imaged. There is a 23 x 23 mm lexus hepatis lymph node on axial series 4, image 281. No gross mediastinal lymphadenopathy. Hilar lymph nodes are obscured. Bones/joints: Bones are unremarkable. Soft tissues: The extrathoracic soft tissues are unremarkable. CT/CT angio chest PE protcl [id number] IMPRESSION: 1. Very limited exam due to artifact from CT bore contact. 2. Nondiagnostic evaluation of the pulmonary arteries. 3. Complete atelectasis of both lower lobes and partial atelectasis of the left upper lobe. 4. Cardiac enlargement. 5. Enlarged main pulmonary artery suggests pulmonary hypertension. 6. Lexus hepatis and gastrohepatic ligament lymphadenopathy is partially imaged. Recommend follow-up abdomen pelvis CT. 7. Satisfactory position of lines and tubes.
--- NOTE | 2022-09-13 10:31 | PM.PN ---
Subjective Subjective: on levo 4 mcg UOP picking up Medications: Reviewed: Yes Vitals/I&O/Wt Last Vital Signs Temp 98.8 F 09/13/22 10:00 Pulse 76 09/13/22 08:18 Resp 24 H 09/13/22 10:13 BP 138/66 09/13/22 09:00 Pulse Ox 90 09/13/22 10:13 O2 Del Method 09/13/22 08:18 O2 Flow Rate 6 09/08/22 09:00 FiO2 70 09/13/22 10:13 09/12/22 09/13/22 09/13/22 22:59 06:59 14:59 Intake Total 2040.229 / 2759.912 1166.235 / 3926.147 299.669 / 299.669 Output Total 3973 / 4673 525 / 5198 Balance -1932.771 / -1913.088 641.235 / -1271.853 299.669 / 299.669 Weight last 48 hrs Weight 204.343 kg Weight 184.2 kg Weight 184.748 kg Weight 185.7 kg Physical Exam Narrative: Patient intubated, sedated, no acute distress Edema bilateral lower extremities Clear to auscultation per report Urinary Catheter Management: Cha: Cath Placed During This Visit: yes Reason for Continuing Indwelling Catheter: Accurate Measurement of Urinary Output in Critically Ill Patients Urinary Catheter Date of Insertion: 09/08/22 Urinary Catheter Time of Insertion: 10:29 Data 09/13/22 03:01 09/13/22 03:01 Micro: Microbiology 09/08/22 09:08 Blood Culture - Final Blood NO GROWTH AFTER 5 DAYS 09/08/22 09:06 Blood Culture - Final Blood NO GROWTH AFTER 5 DAYS 09/11/22 09:15 MRSA Culture - Final Nose 09/11/22 11:45 Gram Stain - Final Sputum - Endotracheal Tube Aspirate Sputum Culture - Preliminary 09/10/22 12:30 Urine Culture - Final Urine,Clean Catch A&P Assessment and plan (1) Acute kidney injury: Plan 1. Acute kidney injury. Different includes contrast nephropathy, sepsis, acute interstitial nephritis, hemodynamic. . Due to high O2 requirement and worsening renal function patient was started on HD-status post 2 sessions. will do HD again today after CT done. Baseline creatinine was normal prior to admission at 0.5. 2. Volume overload:HD as above 3. Primary respiratory acidosis, hypercapneic respiratory failure on ventilator, Recommend: continue to hold vanco, check level daily. Attestations Medical Necessity Statement*: Requires further hospitalization for management of septic shock, hypoxic and hypercapnic respiratory failure and a ventilator dependent morbidly obese female with possibility of severe sleep apnea, acute kidney injury requiring hemodialysis Procedures Arterial Line Size (Gauge): 20 Coding Level of Care Code Acute Code for Chg Fwd Diagnoses Acute kidney injury N17.9
--- NOTE | 2022-09-13 10:53 | PC.CHAP ---
Pastoral Care Encounter/Spiritual Assessment Type of Contact [] Declined clin nurse spec visit [] Patient/Family/Request visit [] Outpatient visit [] Follow-up visit [] Physician referral [] Code/Alert [x] Routine visit [] Staff referral [] Actively dying [] Patient sleeping [x] Family support [] [] Out of room [] Palliative care [] [] Receiving care in room [] Pre-surgical visit [] Trauma [] Long length of stay [x] ICU visit [x] Other: vent... PT looking better in color... family always present Relational/Emotional Strength [] Patient feels connected with others/family/visitors/staff [] Distress [] Loneliness/isolation [] Abandonment Spirituality of Patient [] Person of Soco [] Attends Pentecostal of their Soco [] Believes in Prayer [] Reads Bible or Catholic materials [] There are Spiritual issues to be addressed Zipper Ironer Interventions [x] Prayer [] Active listening [] Non-anxious presence [] Spiritual/emotional support [] Crisis/trauma care [] Spiritual counseling [] Bereavement support [] Provided bereavement packet [] Provided Bible/devotional materials [] Provided toy/stuffed animal, coloring book to patient or family member [] Provided Communion [] Anointing/[place] [] Salvation [x] Completed spiritual assessment [] Other: Impact on Illness or Injury [] Angry [] Fearful [] Anxious [] Often cries [] Exhaustion [] Unable to work [] Unable to attend cheondoism [] Unable to walk/stand [] Unable to read [] Unable to drive [] Unable to eat/drink [] Unable to sleep [] Unable to be with family [] Patient intubated [] Other: Summary Time spent with patient
[2022-09-13] MEDS: metOLazone 5 MG Tablet PO (10:59)
[2022-09-13] MEDS: budesonide 0.5 mg/2 mL Neb INHALATION ×2 (11:08→20:44)
[2022-09-13 11:40] LABS: Glucose Point of Care 105 mg/dL (70-110)
--- NOTE | 2022-09-13 13:54 | ECG_ITS ---
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 Measurements Intervals Shelly Rate: 82 P: 63 VT: 187 QRS: 30 QRSD: 104 T: 131 QT: 359 QTc: 420 Interpretive Statements SINUS RHYTHM POSSIBLE LEFT ATRIAL ENLARGEMENT [-0.1mV P-WAVE IN V1/V2] NONSPECIFIC ST & T-WAVE ABNORMALITY Compared to ECG 09/07/2022 22:58:51 Possible ischemia no longer present T-wave abnormality still present Electronically Signed On 09-13-2022 16:46:14 CDT by Jaydon Fernandez M.D. [email or web address]
--- NOTE | 2022-09-13 14:13 | PC.HD ---
Hemodialysis treatment initiated with lines reversed, due to inability to kenrick from arterial port at all. AP/MANAGER E LEARNING remain elevated, but within acceptable range. If machine pressures increase, blood flow rate will be reduced to maintain pressures within acceptable ranges.
[2022-09-13] MEDS: heparin, porcine 1,000 unit/mL INJ 10 mL 10000 UNIT HE (14:57)
[2022-09-13 15:58] LABS: ABG PCO2 48.1 mmHg (35-45); ABG PH Result 7.32 (7.35-7.45); Alveolar-Arterial Oxygen Gradi 73.4 mmHg (5-10); Arterial Blood Gas Hematocrit 42.7 % (37-47); Base Excess ABG -1.9 mmol/L (-2.0-2.0); Blood Gas Allen Test Pos; Blood Gas Operator Identificat MONRO; Blood Gas Sample Site Not specified; Blood Gas Sample Type Arterial; Carboxyhemoglobin 1.1 %THgb (0.4-20.1); HCO3 ABG 24.7 mmol/L (22-26); HGB O2 Sat 95.2 % (95-100); Ionized Calcium Level - ABG 1.1 mmol/L (1.1-1.4); Methemoglobin 0.8 % (0.4-1.5); Oxygen Device VENT; Oxygen Saturation ABG 97.1; PO2 ABG 86.2 mmHg (80.0-100.0); Total Hemoglobin 13.9 g/dL (12-16)
[2022-09-13 16:22] LABS: Glucose Point of Care 105 mg/dL (70-110)
--- NOTE | 2022-09-13 17:32 | P.PN_ITS ---
Subjective Subjective: Patient remains intubated and sedated. Seen multiple times in the day. Overnight FiO2 on ventilator had to go up to 70% with rate been increased to 24. Currently on FiO2 70%, PEEP 14, tidal volume of 400. Patient not overbreathing the vent. Yesterday patient underwent dialysis with ultrafiltrate of 3 L patient still ended up being negative only 1.2 L. Otherwise has remained afebrile. On 4-6 of Levophed during the day to maintain mean artery pressure over 65. Vitals/I&O/Wt Last Vital Signs Temp 97.7 F 09/13/22 14:11 Pulse 76 09/13/22 17:00 Resp 24 H 09/13/22 17:26 BP 142/67 09/13/22 17:00 Pulse Ox 94 09/13/22 17:26 O2 Del Method 09/13/22 15:13 O2 Flow Rate 6 09/08/22 09:00 FiO2 100 09/13/22 17:26 09/13/22 09/13/22 09/13/22 06:59 14:59 22:59 Intake Total 1166.235 / 3926.147 1078.844 / 1078.844 945 / 2023.844 Output Total 525 / 5198 200 / 200 725 / 925 Balance 641.235 / -1271.853 878.844 / 878.844 220 / 1098.844 Weight last 48 hrs Weight 204.343 kg Weight 184.2 kg Weight 184.748 kg Weight 185.7 kg Physical Exam Narrative: Intubated sedated on mechanical ventilation. Well sedated today Const: COMMON NORMALS: patient oriented x3 HENMT: COMMON NORMALS: normocephalic, atraumatic and hearing grossly normal bilaterally HEAD & SCALP: normocephalic and atraumatic Resp: COMMON NORMALS: clear to auscultation bilaterally AUSCULTATION: clear to auscultation bilaterally OTHER: Diminished air entry bilaterally mostly in the left lower lobe Cardio: COMMON NORMALS: regular rate, regular rhythm, S1 normal heart sound present, S2 normal heart sound present, No gallops present (Cardio), No murmurs present (Cardio), No rub (Cardio) and Peripheral pulses 2+ throughout RATE: regular rate RHYTHM: regular rhythm HEART SOUNDS: S1 normal heart sound present and S2 normal heart sound present PERIPHERAL PULSES: Peripheral p ulses 2+ throughout GI: COMMON NORMALS: Normal to inspection, nondistended, normoactive bowel sounds present, Soft to palpation, non-tender, No hepatosplenomegaly present and no masses AUSCULTATION: Yes normoactive bowel sounds PALPATION: Yes Soft to palpation and Yes No hepatosplenomegaly present RECTAL EXAM: deferred Extremity: COMMON NORMALS: no clubbing, cyanosis or edema and no pedal edema Neuro: COMMON NORMALS: patient oriented x3 Skin: OTHER: Blister present in right dorsum of the hand secondary to infiltration earlier in the admission which has popped now. Urinary Catheter Management: Cha: Cath Placed During This Visit: yes Reason for Continuing Indwelling Catheter: Accurate Measurement of Urinary Output in Critically Ill Patients Urinary Catheter Date of Insertion: 09/08/22 Urinary Catheter Time of Insertion: 10:29 Data 09/13/22 03:01 09/13/22 03:01 Micro: Microbiology 09/11/22 11:45 Gram Stain - Final Sputum - Endotracheal Tube Aspirate Sputum Culture - Final 09/08/22 09:08 Blood Culture - Final Blood NO GROWTH AFTER 5 DAYS 09/08/22 09:06 Blood Culture - Final Blood NO GROWTH AFTER 5 DAYS 09/11/22 09:15 MRSA Culture - Final Nose A&P Assessment and plan (1) Sepsis: (2) Acute respiratory failure with hypoxia and hypercapnia: (3) Obstructive sleep apnea: (4) CHF (congestive heart failure): Qualifiers: Heart failure type: diastolic Heart failure chronicity: acute on chr onic Qualified Code(s): I50.33 - Acute on chronic diastolic (congestive) heart failure (5) Pneumonia: (6) Acute kidney injury: (7) Hypertensive emergency: (8) Flash pulmonary edema: (9) Diarrhea: (10) Essential hypertension: Plan 42 year old female with known past medical history of hypertension noncompliant with antihypertensive medication, morbid obesity, was accepted as a direct transfer, she was initially admitted for the management of substernal chest pain, associated with acute onset of worsening shortness of breath. Assessment: Hypoxic and hypercapnic respiratory failure: Currently intubated. Most likely in setting of decompensated congestive heart failure in setting of hypertensive emergency and acute kidney dysfunction in setting of obstructive sleep apnea and possible pneumonia. Patient's oxygen requirement worsening today. Continue with Bumex to 2 mg 3 times daily. Add metolazone 5 mg oral daily. Most likely patient will need daily dialysis for now with target net negative fr om around 7 to 8 L. Fluid restriction as much as possible. Not able to maintain fluid restriction g iven the amount of IV fluids patient is getting because of sedation and pressor support. Hold off on tube feeds for now to reduce fluid intake. Will request to continue with dialysis. Check CTA for further evaluation of lung pathology. Concerns for possible mucous plug on left lower lobe on examination. Appreciate pulmonology recommendations. Strict input output charting, daily weights. Echocardiogram done during hospitalization shows EF of 60% with grade 1 diastolic dysfunction. Patient will need an outpatient sleep study to quantify sleep apnea. Patient will most likely need to be extubated and discharged on BiPAP. BRIDGETTE : Possibly secondary to ATN secondary to sepsis, in the setting of acute hypotension, versus possibly secondary to antihypertensive effects. Possible contrast-induced nephropathy as she has received a CTA recently, possible AIN Urine output improving. Renal function stable on dialysis for last 2 days. Appreciate nephrology recommendations. Continue daily dialysis. Given patient being ventilator dependent with difficult extubation given multiple comorbidities it would be best for patient to be as net negative as possible. Continue with Bumex as above. Monitor BMP daily for now. Sepsis secondary to hospital-acquired pneumonia: Currently septic versus cardiogenic shock. Sepsis during admission which was ruled in with elevated white cell count, hypotensive, target organ dysfunction with increasing oxygen requirement and eventual intubation, need for vasopressor support, x-ray chest showing possible infiltrates. Wean Levophed while keeping mean arterial pressure over 65. Saturation over 92%. Continue with sedation with fentanyl and propofol for now. Sedation vacation in next 24 hours. Blood cultures so far negative. Urine Legionella, bacterial antigen negative. Urine culture benign. Sputum culture negative. MRSA swab negative. Discontinue vancomycin. Patient has finished overall 7 days of Zosyn. Hold off on further antibiotics for now. Subclinical hypothyroidism: TSH more than 10 while T4 within normal limits. Given critical illness started on levothyroxine 50 mcg daily. Repeat thyroid profile in AM. Hypertension with hypertensive emergency with flash pulmonary edema on admission: Resolved Blood pressure is better controlled. We will continue to monitor blood pressures and start treatment accordingly. Goal blood pressure less than 140/ 90 mmHg with mean over 65 Right upper extremity swelling: DVT ruled out. Does have blister on the dorsum of right hand due to infiltration of IV antibiotics. Continue to monitor. Sedation: Propofol and fentanyl Glycemic control: Not needed. Check A1c. Hypoglycemia protocol Nutrition: Hold off on tube feeds for now to restrict fluid intake. Currently on goal of 60 cc/h. CODE STATUS: Discussed in detail with patient mother and who is the DPOA at bedside. Patient is full code. We discussed need for dialysis for quick improvement. Family verbalized understanding and are agreeable. PUD prophylaxis: Protonix DVT prophylaxis:Heparin 5000 SQ Q8h Discharge planning: We will plan on discharge to home versus SNF as per clinical improvement going forward once patient is extubated. Patient will need sleep study as an outpatient and possible discharge on BiPAP. Continue with care at ICU Plan for care: Repeat dialysis. CTA prior to dialysis for further evaluation of lung pathology. Possible bronchoscopy given worsening oxygenation. Maintain oxygen supplementation over 90%. Increase PEEP to 14. Wean off Levophed keeping mean over 65. Stop Zosyn. Finish 7-day course of antibiotics. Continue with IV Bumex. Added metolazone 5 mg oral daily. Patient's care discussed in detail with patient's father at bedside. All the questions were answered. We discussed that patient remains critically sick given increasing oxygenation requirement and continued pressor support and daily dialysis. This documentation was created by [employer] appellate law clerk software. Every effort was made to ensure accuracy of appellate law clerk. Any obvious errors or omissions should be clarified with the author of the document. Attestations Medical Necessity Statement*: Patient requires further hospitalization for management of severe hypoxic respiratory failure, ventilator dependent, acute k idney injury requiring daily dialysis, shock patient remains on pressors. Procedures Arterial Line Size (Gauge): 20 Coding Level of Care Code Critical Care >/= 30 minutes Critical care time (in minutes): 90 The high probability of a clinically significant, sudden or life threatening deterioration, as referenced in this documentation, required my full and direct attention, intervention and personal management. The critical care time shown is in addition to time spent performing any reported separately billable procedures and includes the following: [x] Data and vital sign review and interpretation [x ] Patient assessment, examination and intervention [x] Medication orders and management [x] Patient/Family updates as able [x] Care Coordination and Documentation. Diagnoses Sepsis A41.9 Acute respiratory failure with hypoxia and hypercapnia J96.01; J96.02 Obstructive sleep apnea G47.33 CHF (congestive heart failure) I50.33 Heart failure type: diastolic Heart failure chronicity: acute on chronic Pneumonia J18.9 Acute kidney injury N17.9 Hypertensive emergency I16.1 Flash pulmonary edema J81.0 Diarrhea R19.7 Essential hypertension I10
--- NOTE | 2022-09-13 18:42 | PM.ACPR ---
Procedure/Consent Time out: Time Out Performed: Yes Consent: Consent for Procedure: Consent obtained from other (indicate), Risks & Benefits reviewed and Agrees to proceed with procedure Procedure Narrative: Procedure : 42215 Dx Bronchoscope w/BAL 40816 Bronchoscopy w/ therapeutic aspiration of the tracheobronchial tree (clearance of airway secretions, removal of mucus plugs) 95701 Moderate sedation, initial 15 min Pre-Operative Diagnosis: Left lower lobe mucous plugging and atelectasis Post-Operative Diagnosis: Same Indication: Patient with hypoxic respiratory failure on ventilator-imaging showing left lower lobe atelectasis Brief History: 42-year-old young female with past medical history of hypertension-noncompliant with her medications-initially comes with hypertensive emergency with flash pulmonary edema-treated with nicardipine drip-becomes hypotensive-started on pressors and antibiotics for presumed sepsis.? She went into respiratory failure requiring mechanical ventilation support.? She also developed BRIDGETTE requiring temporary hemodialysis. Her FiO2 requirement went up to 100% on ventilator and CT imaging showed possible left lower lobe atelectasis Consent: Consents were obtained from [facility] and placed in the chart Pre-procedure Evaluation: Patient was evaluated clinically and ancillary testing reviewed. The risk of having active MTB infection is very low in my clinical judgement. ASA: 4 Malampati score: unable to evaluate due to presence of endotracheal tube Indication: CT evidence of left lower lobe atelectasis Time out: Performed by the procedure team and nursing staff. Vent support maintained on Fio2 100. Anesthesia: Patient is already intubated and sedated with fentanyl 150 MCG/hour, propofol 45 Mg/hour, received bolus fentanyl 25 mcg to achieve adequate sedation (74088) Local anesthesia: The maynor, right and left mainstem bronchi were anesthetized with 1 mL 1% lidocaine at each site. Summary of Significant Findings: -The bronchoscope was advanced through the ET tube. The lower trachea mucosa appeared normal, no endotracheal lesion was seen. The maynor was sharp. The maynor, the right and left mainstem bronchi are anesthetized with 1% lidocaine. In a systematic manner bilateral bronchial tree was then examined. The bronchoscope was advanced into the left mainstem bronchus. The mucosa appeared normal with no endobronchial lesions. The left upper lobe, lingula and left lower lobe bronchi were examined up to the third subsegmental level. There was thick mobile mucous which was blocking left lower lobe bronchus, easily suctioned (64658). Mucosa appeared normal with no endobronchial lesion, active bleeding. There were thick mucus secretions in left upper lobe-which were suctioned right away.(78012) The bronchoscope was then introduced into the right mainstem bronchus. The right upper lobe, right middle lobe and right lower lobe bronchi were examined up to the third subsegmental level. The mucosa appeared normal with no endobronchial lesions, active bleeding. There were some secretions in the right lower lobes which were suctioned right away(51998). The bronchoscope was wedged at the entrance of medial segment of left lower lobe-30 cc normal saline was instilled-aspirated 20 cc blood mixed bronchoalveolar lavage return.(30836) Estimated Blood Loss: None Specimens: Bronchoalveolar lavage (45276) from left lower lobe sent for cultures, fluid analysis, Complications:None; patient tolerated the procedure well. Disposition: Patient remains critically ill, intubated and stays in ICU Surgeon: Dada Dobbs MD, [facility] Pul[facility] critical Care Medicine [facility] Acute Procedures Arterial Line: Size (Gauge): 20 Epistaxis Control: Time out performed: Yes
--- NOTE | 2022-09-13 18:52 | P.PN_ITS ---
Subjective Subjective: Seen patient multiple times at bedside today Clinically unchanged-received hemodialysis yesterday 3 L fluid removed and she also received another session of hemodialysis today morning and removed 3 L fluid -She made 900 cc urine today morning shift-75 cc/hour -currently requiring Levophed 6 mcg/hour -Her FiO2 requirement went up to 70% and we had to increase the PEEP to 14 to counteract her chest wall resistance given her morbid obesity -She underwent CTA for increasing oxygen requirements-there was a lot of motion artifact and CT was nondiagnostic for pulmonary arteries. There is moderate cardiac enlargement and enlarged main pulmonary artery suggesting pulmonary hypertension. There was partial atelectasis of left upper lobe and complete atelectasis of both lower lobes. -She underwent bronchoscopic evaluation for airways-there were thick mucus secretions in bilateral lower lobes which were suctioned and BAL sent for fluid analysis as well as microbiology cultures -Other labs and imaging reviewed Medications: Reviewed: Yes Medication Review Details: Generic Name Dose Route Start Last Admin Trade Name Freq PRN Reason Stop Dose Admin Acetaminophen 650 mg 09/06/22 10:41 09/07/22 04:50 Acetaminophen 32 5 Mg Tablet PO 650 mg Q6H PRN Administration Mild/Mod Pain Or Temp >/= 101 Albuterol/Ipratrop ium 3 ml 09/06/22 10:45 09/10/22 08:21 Ipratropium-Albu terol 3 Ml Neb INHALATION 3 ml Q6H.RESP PRN Administration SHORTNESS OF KVNG TH Chlorhexidine Gluc millie 1 applic 09/10/22 01:00 09/10/22 04:17 Chlorhexidine Gl uconate 4% Btl 118 Ml TOPICAL Not Given 0100 STERLING Heparin Sodium (Po rcine) 5,000 unit 09/06/22 10:45 09/10/22 11:01 Heparin 5,000 Un it/Ml Inj 1 Ml SUBCUT 5,000 unit Q8H STERLING Administration Norepinephrine Bit artrate 4 mg 254 mls @ 0 mls/h r 09/07/22 22:30 09/08/22 13:45 / Dextrose IV Infused .Q0M STERLING Titration Protocol Per Protocol Norepinephrine Bit artrate 8 mg 508 mls @ 0 mls/h r 09/08/22 11:30 09/09/22 10:04 / Dextrose IV 0 mcg/min .Q0M STERLING 0 mls/hr Titration Protocol Per Protocol Propofol 1,000 mg in 100 m ls @ 0 mls/hr 09/09/22 03:45 09/10/22 08:33 Diprivan IV 30 mcg/kg/min .Q0M ST[place]ING 31.14 mls/hr Administration Protocol Per Protocol Fentanyl 2,500 mcg / Sodium 250 mls @ 0 mls/h r 09/09/22 04:45 09/09/22 13:56 Chloride IV 30 mcg/hr .Q0M STERLING 3 mls/hr Titration Protocol Per Protocol Piperacillin Sod/T azobactam 50 mls @ 12.5 mls /hr 09/10/22 08:00 09/10/22 07:58 Sod 2.25 gm/ Sod ium Chloride IV 12.5 mls/hr Q8H ST[place]ING Administration Ondansetron HCl 4 mg 09/06/22 10:41 09/08/22 16:34 Ondansetron 2 Mg /Ml Sdv 2 Ml IVP 4 mg Q8H PRN Administration vomiting, or N/V if npo Vitals/I&O/Wt Last Vital Signs Temp 97.7 F 09/13/22 18:08 Pulse 78 09/13/22 18:08 Resp 24 H 09/13/22 18:08 BP 113/68 09/13/22 18:08 Pulse Ox 94 09/13/22 17:26 O2 Del Method 09/13/22 18:00 O2 Flow Rate 6 09/08/22 09:00 FiO2 100 09/13/22 18:00 09/13/22 09/13/22 09/13/22 06:59 14:59 22:59 Intake Total 1166.235 / 3926.147 1078.844 / 8631.080 5718 / 2323.844 Output Total 525 / 5198 200 / 200 4925 / 5125 Balance 641.235 / -1271.853 878.844 / 878.844 -3680 / -2801.156 Weight last 48 hrs Weight 417 lb 15.943 oz Weight 450 lb 8 oz Weight 406 lb 1.463 oz Weight 407 lb 4.8 oz Weight 409 lb 6.374 oz Physical Exam Narrative: PHYSICAL EXAM: General: Morbidly obese, young female, lying in bed, sedated and intubated. HEENT:NCAT, PERRLA, EOMI Neck: Supple Lungs: Bilateral diffuse crackles Heart: s1/s2, RRR Abd: soft, NT, ND, BS + Normoactive Extremities: No edema, right forearm infiltrated INSURANCE DEFENSE ATTORNEY: sedated and limited INSURANCE DEFENSE ATTORNEY exam possible. SKIN: no rash LDA: # HD Cath : Right IJ 09/11/2022 # A line: 09/08/2022 left radial artery #CVC: Right femoral line 09/08/2022 Urinary Catheter Management: Cha: Cath Placed During This Visit: yes Reason for Continuing Indwelling Catheter: Accurate Measurement of Urinary Output in Critically Ill Patients Urinary Catheter Date of Insertion: 09/08/22 Urinary Catheter Time of Insertion: 10:29 Data 09/13/22 03:01 09/13/22 03:01 Other Labs: Radiology Impressions Duplex Scan Upper Extremity Artery 09/08/22 20:22 IMPRESSION: 1. No evidence for major vessel occlusion or significant stenosis. 2. Other details discussed above. Venous Duplex 09/08/22 20:31 IMPRESSION: No evidence of acute right upper extremity DVT. Renal Ultrasound 09/09/22 05:33 IMPRESSION: 1. No hydronephrosis of either kidney. 2. Technologist notes somewhat limited evaluation of the kidneys, due to patient condition and body habitus. 3. Other details discussed above. Chest X-Ray 09/12/22 09:00 IMPRESSION: Decreased pulmonary vascular congestion compared with previous Chest CTA 09/13/22 10:26 IMPRESSION: 1. Very limited exam due to artifact from CT bore contact. 2. Nondiagnostic evaluation of the pulmonary arteries. 3. Complete atelectasis of both lower lobes and partial atelectasis of the left upper lobe. 4. Cardiac enlargement. 5. Enlarged main pulmonary artery suggests pulmonary hypertension. 6. Lexus hepatis and gastrohepatic ligament lymphadenopathy is partially imaged. Recommend follow-up abdomen pelvis CT. 7. Satisfactory position of lines and tubes. Laboratory Results WBC 6.3 10^3/uL (4.0-10.0) 09/13/22 03:01 RBC 4.85 10^6/uL (4.1-5.3) 09/13/22 03:01 Hgb 13.7 g/dL (11.5-15.3) 09/13/22 03:01 Hct 44.4 % (37.0-47.0) 09/13/22 03:01 MCV 91.5 fl (81-99) 09/13/22 03:01 MCH 28.2 pg (28.0-34.0) 09/13/22 03:01 MCHC 30.9 g/dL (30.0-36.0) 09/13/22 03:01 RDW 14.4 % (12.1-15.1) 09/13/22 03:01 Plt Count 165 10^3/cmm (130-400) 09/13/22 03:01 MPV 10.6 fL (7.4-10.4) H 09/13/22 03:01 Neut % (Auto) 67.0 % 09/13/22 03:01 Lymph % (Auto) 19.7 % 09/13/22 03:01 Stewart % (Auto) 10.4 % 09/13/22 03:01 Eos % (Auto) 2.1 % 09/13/22 03:01 Baso % (Auto) 0.5 % 09/13/22 03:01 Neut # (Auto) 4.21 10^3/uL (1.8-7.7) 09/13/22 03:01 Lymph # (Auto) 1.2 10^3/uL (0.8-4.8) 09/13/22 03:01 Stewart # (Auto) 0.7 10^3/uL (0.2-0.9) 09/13/22 03:01 Eos # (Auto) 0.1 10^3/uL (0.0-0.8) 09/13/22 03:01 Baso # (Auto) 0.0 10^3/uL (0.0-0.1) 09/13/22 03:01 Nucleated RBC % (auto) 0 % 09/13/22 03:01 Nucleated RBCs # 0.0 /100WBC 09/13/22 03:01 D-Dimer 3.45 ug/mIFEU (0-0.59) H 09/11/22 17:27 Specimen Type Arterial 09/13/22 15:45 Sample Site Not specified 09/13/22 15:45 ABG pH 7.32 (7.35-7.45) L 09/13/22 15:45 ABG pCO2 48.1 mmHg (35-45) H 09/13/22 15:45 ABG pO2 86.2 mmHg (80.0-100.0) 09/13/22 15:45 ABG HCO3 24.7 mmol/L (22-26) 09/13/22 15:45 ABG O2 Saturation 97.1 09/13/22 15:45 ABG Base Excess -1.9 mmol/L (-2.0-2.0) 09/13/22 15:45 Haider Test Pos 09/13/22 15:45 A-a O2 Gradient 73.4 mmHg (5-10) H 09/13/22 15:45 Hematocrit 42.7 % (37-47) 09/13/22 15:45 Hgb O2 Saturation 95.2 % (95-100) 09/13/22 15:45 Carboxyhemoglobin 1.1 %THgb (0.4-20.1) 09/13/22 15:45 Methemoglobin 0.8 % (0.4-1.5) 09/13/22 15:45 Total Hemoglobin 13.9 g/dL (12-16) 09/13/22 15:45 Sodium 137.0 mmol/L (131-143) 09/13/22 15:45 Potassium 4.0 mmol/L (3.5-5.0) 09/13/22 15:45 Glucose 101.0 mg/dL (70-115) 09/13/22 15:45 Ionized Calcium 1.1 mmol/L (1.1-1.4) 09/13/22 15:45 O2 Delivery Device Vent 09/13/22 15:45 O2 Liters/Min 7.0 % 09/08/22 15:57 FiO2 100.0 % 09/13/22 15:45 Tidal Volume 0.40 09/13/22 15:45 PEEP 14.0 cmH20 09/13/22 15:45 Bull Wheel Worker ID Monro 09/13/22 15:45 Sodium 138 mmol/L (136-145) 09/13/22 03:01 Potassium 4.4 mmol/L (3.5-5.1) 09/13/22 03:01 Chloride 98 mmol/L (98-107) 09/13/22 03:01 Carbon Dioxide 25 mmol/L (22-29) 09/13/22 03:01 Anion Gap 19.4 (5-19) H 09/13/22 03:01 BUN 34 mg/dL (6-20) H 09/13/22 03:01 Creatinine 3.9 mg/dL (0.5-0.9) H 09/13/22 03:01 GFR Calculation 12.6 mL/min (90-130) L 09/13/22 03:01 Glucose 106 mg/dL (65-115) 09/13/22 03:01 POC Glucose 105 mg/dL (70-110) 09/13/22 16:19 Estimat Average Glucose 114 09/12/22 03:59 Hemoglobin A1c 5.6 % (4.0-6.0) 09/12/22 03:59 Calculated Osmolality 294 mOsm/kg (285-295) 09/13/22 03:01 Lactic Acid 1.6 mmol/L (0.5-2.2) 09/08/22 09:06 Calcium 9.1 mg/dL (8.5-10.5) 09/13/22 03:01 Phosphorus 5.9 mg/dL (2.5-4.5) H 09/11/22 05:57 Magnesium 2.1 mg/dL (1.7-2.3) 09/07/22 04:38 Iron 46 ug/dL (37-145) 09/11/22 05:57 TIBC 271 mcg/dl 09/11/22 05:57 % Saturation 16.9 % (20-50) L 09/11/22 05:57 Unsat Iron Binding 225 ug/dL (112-347) 09/11/22 05:57 Total Bilirubin 0.7 mg/dL (0.15-1.2) 09/13/22 03:01 AST 83 U/L (0-32) H 09/13/22 03:01 ALT 25 U/L (0-33) 09/13/22 03:01 Alkaline Phosphatase 69 U/L (35-105) 09/13/22 03:01 Creatine Kinase 225 U/L (26-192) H 09/10/22 03:30 CK-MB (CK-2) 14.9 ng/mL (0-5.34) H 09/10/22 03:30 CK-MB (CK-2) Rel Index 6.6 % (0.0-10.4) 09/10/22 03:30 NT-Pro-B Natriuret Pep 1494 pg/mL (0-125) H 09/11/22 05:57 Total Protein 6.6 g/dL (6.6-8.7) 09/13/22 03:01 Albumin 3.6 g/dL (3.5-5.2) 09/13/22 03:01 Globulin 3.0 g/dL (1.3-4.6) 09/13/22 03:01 Triglycerides 313 mg/dL (0-150) H 09/12/22 03:59 Cholesterol 140 mg/dL (0-200) 09/12/22 03:59 LDL Cholesterol, Calc 49 mg/dL (50-129) L 09/12/22 03:59 Total VLDL Cholesterol 63 mg/dL (0-30) H 09/12/22 03:59 HDL Cholesterol 28 mg/dL (60-100) L 09/12/22 03:59 Cholesterol/HDL Ratio 5.00 mg/dL (0.0-4.40) H 09/12/22 03:59 Vitamin B12 514 pg/mL (232-1245) 09/11/22 05:57 Folate 8.9 ng/mL (4.8-37.3) 09/11/22 05:57 Procalcitonin 0.35 ng/mL (0-0.5) 09/08/22 09:06 TSH 16.86 uIU/mL (0.27-4.20) H 09/11/22 05:57 Free T4 0.92 ng/dL (0.82-1.77) 09/11/22 05:57 Free T3 2.2 PG/ML (2.0-4.4) 09/11/22 05:57 Urine Color Straw (Yellow) 09/10/22 12:30 Urine Appearance Clear (CLEAR) 09/10/22 12:30 Urine pH 5 (5-7) 09/10/22 12:30 Ur Specific [place] 1.005 (1.005-1.030) 09/10/22 12:30 Urine Protein Neg (Negative) 09/10/22 12:30 Urine Glucose (UA) Norm (Normal) 09/10/22 12:30 Urine Ketones Negative (Negative) 09/10/22 12:30 Urine Blood 3+ (Negative) H 09/10/22 12:30 Urine Nitrate Negative (Negative) 09/10/22 12:30 Urine Bilirubin Neg (Negative) 09/10/22 12:30 Urine Urobilinogen Norm mg/dL (Negative) 09/10/22 12:30 Ur Leukocyte Esterase 2+ (Negative) H 09/10/22 12:30 Urine RBC 15-25 /hpf (0-2) H 09/10/22 12:30 Urine WBC 25-40 /hpf (0-5) H 09/10/22 12:30 Ur Squamous Epith Cells 5-10 /hpf (0-5) H 09/10/22 12:30 Ur Transition Epith Cell 0-4 /hpf 09/10/22 12:30 Amorphous Sediment Not Reportable 09/10/22 12:30 Urine Bacteria 1+ /hpf (NONE) H 09/10/22 12:30 Ur Random Sodium 93 mmol/L 09/09/22 01:10 Urine Creatinine 51 mg/dL (28-217) 09/09/22 01:10 Nasal Influ A H1 2008 PCR Not detected (NOT DETECT) 09/08/22 08:45 Random Vancomycin 18.7 ug/mL (20.0-40.0) L 09/12/22 03:59 Adenovirus (PCR) Not detected (NOT DETECT) 09/08/22 08:45 C. pneumoniae DNA (PCR) Not detected (NOT DETECT) 09/08/22 08:45 Coronavirus 229E (PCR) Not detected (NOT DETECT) 09/08/22 08:45 Hepatitis A IgM Ab Non-reactive (Nonreactive) 09/11/22 05:57 Hep Bs Antigen Non-reactive (Nonreactive) 09/11/22 05:57 Hep Bs Antibody 12.8 (11.5-1000) 09/11/22 05:57 Hep B Core Total Ab Non-reactive (Nonreactive) 09/11/22 05:57 Hepatitis C Antibody Non-reactive (Nonreactive) 09/11/22 05:57 Human Metapneumovir PCR Not detected (NOT DETECT) 09/08/22 08:45 Influenza A (H1) PCR Not detected (NOT DETECT) 09/08/22 08:45 Influenza A (H3) PCR Not detected (NOT DETECT) 09/08/22 08:45 Influenza Type A (PCR) Not detected (NOT DETECT) 09/08/22 08:45 Influenza Type B (PCR) Not detected (NOT DETECT) 09/08/22 08:45 M. pneumoniae (PCR) Not detected (NOT DETECT) 09/08/22 08:45 Parainfluenza 1 (PCR) Not detected (NOT DETECT) 09/08/22 08:45 Parainfluenza 2 (PCR) Not detected (NOT DETECT) 09/08/22 08:45 Parainfluenza 3 (PCR) Not detected (NOT DETECT) 09/08/22 08:45 Parainfluenza 4 (PCR) Not detected (NOT DETECT) 09/08/22 08:45 RSV Type A (PCR) Not detected (NOT DETECT) 09/08/22 08:45 RSV Type B (PCR) Not detected (NOT DETECT) 09/08/22 08:45 Entero/Rhino (PCR) Not detected (NOT DETECT) 09/08/22 08:45 SARS-CoV-2 (PCR) Not detected (NOT DETECT) 09/08/22 08:45 Micro: Microbiology 09/11/22 11:45 Gram Stain - Final Sputum - Endotracheal Tube Aspirate Sputum Culture - Final 09/08/22 09:08 Blood Culture - Final Blood NO GROWTH AFTER 5 DAYS 09/08/22 09:06 Blood Culture - Final Blood NO GROWTH AFTER 5 DAYS 09/11/22 09:15 MRSA Culture - Final Nose A&P Assessment and plan (1) Acute respiratory failure with hypoxia and hypercapnia: (2) Obstructive sleep apnea: (3) Pneumonia: (4) Flash pulmonary edema: (5) Hypertensive emergency: (6) Acute kidney injury: (7) ARDS (adult respiratory distress syndrome): Plan ASSESSMENT/PLAN:Overall: 42-year-old young female with past medical history of hypertension-noncompliant with her medications-initially comes with hypertensive emergency with flash pulm onary edema-treated with nicardipine drip-becomes hypotensive-started on pressors and antibiotics for presumed sepsis. She went into respiratory failure requiring mechanical ventilation support. She also developed BRIDGETTE requiring temporary hemodialysis. NEURO: #Sedation-currently on fentanyl and propofol gtt. -Follows commands -Adjust to maintain RASS -2 -We can notice reduce propofol to 30 cc/hour and start her on Versed gtt. PULM: #Acute hypoxic and hypercapnic respiratory failure-probably there is a chronic component given her morbid obesity #?? Possible ARDS -Acute component secondary to flash pulmonary edema due to hypertensive natasha gencyClinically unchanged -Her FiO2 requirement went up to 70% and we had to increase the PEEP to 14 to counteract her chest wall resistance given her morbid obesity -She underwent CTA for increasing oxygen requirements-there was a lot of motion artifact and CT was nondiagnostic for pulmonary arteries. There is moderate cardiac enlargement and enlarged main pulmonary artery suggesting pulmonary h ypertension. There was partial atelectasis of left upper lobe and complete atelectasis of both lower lobes. -She underwent bronchoscopic evaluation for airways-there were thick mucus secretions in bilateral lower lobes which were suctioned and BAL sent for fluid analysis as well as microbiology cultures -She is on scheduled nebulization with DuoNeb as well as Pulmicort -Currently she is on Bumex 2 Mg Q8 over follow-up fluid overload-and temporary hemodialysis as per renal team -We will continue with awakening and breathing trials once FiO2 is down to 50% CVS: #Hypertensive emergency-treated with nicardipine drip-resolved #Circulatory shock-likely secondary to possible nicotine toxicity or demand ischemia due to underlying? Sepsis -Currently requiring Levophed 6 mcg/hour -Echocardiogram during admission showed normal LV size, systolic function with EF 60%. Grade 1 diastolic dysfunction. -Elevated BNP -We will continue with Bumex 2 Mg every 8 hours and and started on metolazone 5 Mg p.o. daily fluid removal through temporary hemodialysis -Continue close hemodynamic and cardiac monitoring GI: #Diet: TF nephro #GI prophylaxis: PPI #LFTs: Within normal limits RENAL: #BRIDGETTE-most likely prerenal secondary to ischemic ATN due to hypotension/? Contrast-induced nephropathy --received hemodialysis yesterday 3 L fluid removed and she also received another session of hemodialysis today morning and removed 3 L fluid -She made 900 cc urine today morning shift-75 cc/hour -Electrolytes and bicarb within normal limits -Adequate urine output -Currently on Bumex 2 Mg 3 times daily and added metolazone 5 Mg p.o. daily; temporary hemodialysis for fluid removal as per nephro team HEM: #Leukocytosis-improving #H&H stable #Normal platelets ENDO: #Significantly elevated TSH-suspect hypothyroidism-patient on levothyroxine 50 mcg q. p.o. daily-she may need to follow-up as outpatient #Normal blood sugars ID: #Presumably met sepsis criteria -Pulmonary infiltrates on imaging-with leukocytosis-and hypotension-there was a suspicion if it is all septic shock secondary to pneumonia; -However infiltrates can be explained with fluid overload, hypotension secondary to need Cardene drip -Patient procalcitonin is low -So far cultures are negative, and MRSA nares negative-final cultures pending -Discontinued vancomycin, completed 7 days of Zosyn -BAL sent for cultures today Code Status: Full code Disposition: ICU Critically ill: Yes MD discussed with: Hospitalist, RN, RT taking care of the patient ICU CHECKLIST: Problem list updated Verbal orders reviewed and signed Analgesia: Fentanyl Glycemic Control: N/A Nutrition: TF nephro Restraint Renewal (within 24 hrs): Yes Ulcer Prophylaxis: PPI Chemical Thromboprophylaxis: Prophylaxis: Heparin subcu Mechanical Thromboprophylaxis: SCDs Need for Central line: Yes for multiple medications Need for Cha catheter: Yes for urine output monitoring Attestations Medical Necessity Statement*: Acute hypoxic/hypercapnic respiratory failure secondary to fluid overload due to hypertensive emergency-requiring mechanical ventilation; will continue to monitor at least 48 hours in ICU Critical Care Time: This patient has a high probability of? clinically sig nificant, sudden o r life threatening deterioration of the patient's (jonathan rological/pulmonar y/cardiac/renal/ID /endocrine) system s required my full , direct attention , the highest leve l of physician pre paredness for urge nt intervention an d personal managem ent.? I managed/emade pervised life or o rgan supporting in terventions that r equired frequent p hysician assessmen t.? I devoted my f ull attention in t he ICU to the dire ct care of this pa tient for the kareen od of time indicat ed above.? Time I spent with family or surrogate(s) is included only if the patient was in capable of providi ng necessary infor mation or particip ating in decision making.? This annie e includes the [facility] services pr ovided: Telemetry review Mechanical Ventilation Hemod ynamic interpretat ion, assessment an d management Revie w and interpretati on of CXR Review a nd interpretation of lab values Revi ew and interpretat ion of microbiolog ic data and cultur e results Review o f medications and administration Rev iew and interpreta tion of Nutrition requirements and m anagement Discussi on of management w ith other consulta nts and services C linical update to family members [x ] Data and vital s ign review and int erpretation [x] Segun humphrey assessment, examination and in tervention [x] Doc umentation [x] Med ication orders and management Time spent for teaching as well as perfor aydin procedures ar e billed separatel y and is not inclu ded in this note ? Critical Care Annie e (min): 77 Procedures Arterial Line Size (Gauge): 20 Coding Level of Care Code Critical Care >/= 30 minutes Diagnoses Acute respiratory failure with hypoxia and hypercapnia J96.01; J96.02 Obstructive sleep apnea G47.33 Pneumonia J18.9 Flash pulmonary edema J81.0 Hypertensive emergency I16.1 Acute kidney injury N17.9 ARDS (adult respiratory distress syndrome) J80 Time Spent (min) 77
--- NOTE | 2022-09-13 19:00 | PC.NURSE ---
Dr. Dobbs @bedside. Verbal order to decreased Propofol to 30 and start Versed.
[2022-09-13] MEDS: acetylcysteine 200 mg/mL MDV 10 mL 100 MG INHALATION ×2 (20:43→23:24)
[2022-09-13] MEDS: propofol 1,000 MG/100 ML INJ 31.14 MG IV (21:40)
[2022-09-13] MEDS: artificial tears Op Oint 3.5 gm 1 APPLIC EYE-BOTH (21:44)
[2022-09-13 22:06] LABS: ABG PCO2 58.6 mmHg (35-45); ABG PH Result 7.27 (7.35-7.45); Arterial Blood Gas Hematocrit 43.5 % (37-47); Base Excess ABG -1.2 mmol/L (-2.0-2.0); Blood Gas Sample Type Arterial; HCO3 ABG 26.9 mmol/L (22-26); HGB O2 Sat 94.1 % (95-100); Ionized Calcium Level - ABG 1.3 mmol/L (1.1-1.4); Methemoglobin 0.8 % (0.4-1.5); Oxygen Saturation ABG 95.9; PO2 ABG 79.4 mmHg (80.0-100.0); Potassium Level - ABG 4.6 mmol/L (3.5-5.0); Total Hemoglobin 14.2 g/dL (12-16)
[2022-09-13 22:07] LABS: Alveolar-Arterial Oxygen Gradi 72.9 mmHg (5-10); Blood Gas Operator Identificat JB; Blood Gas Sample Site Not specified; Oxygen Device VENT
[2022-09-13 23:31] LABS: Glucose Point of Care 88 mg/dL (70-110)
[2022-09-13 23:43] LABS: Apprearance, Bronch Wash Bloody (CLEAR); Color, Bronc Wash Red
[2022-09-13 23:44] LABS: Total Cells Counted Bronch 200
[2022-09-14] VITALS (85 sets, daily range): BP systolic 94–151; BP diastolic 43–84; PULSE 81–102; RESP 20–26; TEMP 37.4–38.3; O2SAT 78–94
[2022-09-14] MEDS: propofol 1,000 MG/100 ML INJ 31.14 MG IV ×3 (01:10→07:47)
[2022-09-14] MEDS: albumin 25 G/100 ML BAG 60 G IV (01:34)
[2022-09-14] MEDS: bumetanide 0.25 mg/mL SDV 10 mL 2 MG IVP ×3 (02:53→18:12)
[2022-09-14] MEDS: heparin 5,000 unit/mL INJ 1 mL 5000 UNIT SUBCUT ×3 (02:57→18:12)
[2022-09-14] MEDS: chlorhexidine gluconate 4% Btl 118 mL 1 APPLIC TOPICAL (03:00)
--- NOTE | 2022-09-14 03:03 | PC.NURSE ---
During nightly bed bath pt was rolled to change dirty linens, pt SpO2 dropped to 78%, recovered back to 93% over about 5 minutes, Alyse from RT aware.
[2022-09-14 03:09] LABS: Glucose Point of Care 86 mg/dL (70-110)
[2022-09-14] MEDS: ipratropium-albuterol 3 mL Neb INHALATION ×6 (03:11→23:54)
[2022-09-14] MEDS: acetylcysteine 200 mg/mL MDV 10 mL 100 MG INHALATION ×6 (03:11→23:54)
[2022-09-14 03:15] LABS: Basophils % 0.5 %; Eosinophils # 0.1 10^3/uL (0.0-0.8); Eosinophils % 2.2 %; Hematocrit 44.6 % (37.0-47.0); Hemoglobin 13.3 g/dL (11.5-15.3); Lymphocytes # 1.2 10^3/uL (0.8-4.8); Lymphocytes % 19.5 %; Mean Corpuscular HGB Conc 29.8 g/dL (30.0-36.0); Mean Corpuscular Hemoglobin 27.1 pg (28.0-34.0); Mean Corpuscular Volume 90.8 fl (81-99); Mean Platelet Volume 10.3 fL (7.4-10.4); Monocytes # 0.7 10^3/uL (0.2-0.9); Monocytes % 10.8 %; Neutrophils # 4.23 10^3/uL (1.8-7.7); Neutrophils % 66.5 %; Nucleated Red Blood Cells % 0 %; Platelet Count 174 10^3/cmm (130-400); Red Blood Count 4.91 10^6/uL (4.1-5.3); Red Cell Distribution Width 14.3 % (12.1-15.1); White Blood Count 6.4 10^3/uL (4.0-10.0)
[2022-09-14 03:32] LABS: Alanine Aminotransferase 29 U/L (0-33); Alkaline Phosphatase 71 U/L (35-105); Anion Gap 21.5 (5-19); Aspartate Amino Transferase 77 U/L (0-32); Blood Urea Nitrogen 30 mg/dL (6-20); Calcium 9.8 mg/dL (8.5-10.5); Carbon Dioxide 24 mmol/L (22-29); Chloride 95 mmol/L (98-107); Globulin 2.9 g/dL (1.3-4.6); Glomerular Filtration Rate 11.6 mL/min (90-130); Glucose 78 mg/dL (65-115); Osmolality Calculated 287 mOsm/kg (285-295); Potassium 4.5 mmol/L (3.5-5.1); Sodium 136 mmol/L (136-145); Total Bilirubin 0.6 mg/dL (0.15-1.2); Total Protein 6.9 g/dL (6.6-8.7)
[2022-09-14 04:59] LABS: Glucose Point of Care 78 mg/dL (70-110)
[2022-09-14 05:12] LABS: ABG PCO2 44.7 mmHg (35-45); ABG PH Result 7.35 (7.35-7.45); Alveolar-Arterial Oxygen Gradi 74.8 mmHg (5-10); Arterial Blood Gas Hematocrit 42.6 % (37-47); Base Excess ABG -1.1 mmol/L (-2.0-2.0); Blood Gas Operator Identificat JB; Blood Gas Sample Site Not specified; Blood Gas Sample Type Arterial; Carboxyhemoglobin 0.9 %THgb (0.4-20.1); HCO3 ABG 24.8 mmol/L (22-26); HGB O2 Sat 95.8 % (95-100); Ionized Calcium Level - ABG 1.3 mmol/L (1.1-1.4); Methemoglobin 0.4 % (0.4-1.5); Oxygen Device VENT; Oxygen Saturation ABG 97.1; PO2 ABG 80.5 mmHg (80.0-100.0); Potassium Level - ABG 4.2 mmol/L (3.5-5.0); Total Hemoglobin 13.9 g/dL (12-16)
[2022-09-14] MEDS: levothyroxine 50 mcg Tablet PO (05:47)
[2022-09-14 07:44] LABS: Glucose Point of Care 82 mg/dL (70-110)
[2022-09-14] MEDS: pantoprazole 40 mg SDV IVP (07:47)
[2022-09-14] MEDS: budesonide 0.5 mg/2 mL Neb INHALATION ×2 (07:48→20:05)
[2022-09-14] MEDS: metOLazone 5 MG Tablet PO (07:48)
--- NOTE | 2022-09-14 09:02 | PM.PN ---
Subjective Subjective: Remains on 100% FiO2, Off pressors Medications: Reviewed: Yes Vitals/I&O/Wt Last Vital Signs Temp 100.9 F H 09/14/22 07:30 Pulse 98 09/14/22 08:30 Resp 24 H 09/14/22 07:51 BP 137/71 09/14/22 08:30 Pulse Ox 92 09/14/22 08:30 O2 Del Method 09/14/22 07:48 O2 Flow Rate 6 09/08/22 09:00 FiO2 100 09/14/22 08:00 09/13/22 09/14/22 09/14/22 22:59 06:59 14:59 Intake Total 1848.370 / 2927.214 500.856 / 3428.070 140 / 140 Output Total 4925 / 5125 425 / 5550 Balance -3076.630 / -2197.786 75.856 / -2121.930 140 / 140 Weight last 48 hrs Weight 186.381 kg Weight 189.6 kg Weight 204.343 kg Weight 184.2 kg Physical Exam Narrative: Patient intubated, sedated, no acute distress Edema bilateral lower extremities Clear to auscultation per report Urinary Catheter Management: Cha: Cath Placed During This Visit: yes Reason for Continuing Indwelling Catheter: Accurate Measurement of Urinary Output in Critically Ill Patients Urinary Catheter Date of Insertion: 09/08/22 Urinary Catheter Time of Insertion: 10:29 Data 09/14/22 02:44 09/14/22 02:44 Micro: Microbiology 09/14/22 04:00 C.difficile Toxin B Gene (PCR) - Final Stool Routine Collection 09/11/22 11:45 Gram Stain - Final Sputum - Endotracheal Tube Aspirate Sputum Culture - Final 09/08/22 09:08 Blood Culture - Final Blood NO GROWTH AFTER 5 DAYS 09/08/22 09:06 Blood Culture - Final Blood NO GROWTH AFTER 5 DAYS A&P Assessment and plan (1) Acute kidney injury: Plan 1. Acute kidney injury. Different includes contrast nephropathy, sepsis, acute interstitial nephritis, hemodynamic. . Due to high O2 requirement and worsening renal function patient was started on HD-status post 3 sessions. Would like to keep her on a negative fluid balance, plan for HD again today for 3 hours, baseline creatinine was normal prior to admission at 0.5. 2. Volume overload:HD as above 3. Primary respiratory acidosis, hypercapneic respiratory failure on ventilator, Recommend: , Follow Vanco level closely Attestations Medical Necessity Statement*: Requires further hospitalization for management of septic shock, hypoxic and hypercapnic respiratory failure and a ventilator dependent morbidly obese female with possibility of severe sleep apnea, acute kidney injury requiring hemodialysis Procedures Arterial Line Size (Gauge): 20 Coding Level of Care Code Acute Code for Chg Fwd Diagnoses Acute kidney injury N17.9
--- NOTE | 2022-09-14 09:06 | XR_ITS ---
WS: [id number] EXAMINATION: XR chest 1V portable [id number] REASON FOR EXAM: pneumonia COMPARISON: 09/12/2022 ORDER DATE: 09/14/2022 9:13 AM TECHNIQUE: A single, portable frontal chest x-ray was obtained. X-RAY FINDINGS: A right internal jugular venous dialysis catheter is unchanged. The tip appears to end in the superior vena cava just above the cavoatrial junction. No pneumothorax is seen. The endotracheal tube and nasogastric tube remain in the same position. The heart remains enlarged. Pulmonary vascular congestion has decreased somewhat. Left basal consolidation and/or effusion unchanged. XR/XR chest 1V portable [id number] IMPRESSION: Decreased pulmonary vascular congestion compared with previous
[2022-09-14 09:23] LABS: PATH Referral Yes
--- NOTE | 2022-09-14 10:53 | PC.HD ---
Prior to HD initiation, this RN was able to draw from the arterial port. Previously, the arterial port would not draw at all. Treatment initiated with lines in the normal arterial/arterial and venous/venous configuration. However, upon increasing blood flow rate to prescribed values, AP pressure on machine increased significantly. It will likely be necessary to reverse her lines as treatment progresses.
[2022-09-14 11:46] LABS: ABG PCO2 52.1 mmHg (35-45); Alveolar-Arterial Oxygen Gradi 69.9 mmHg (5-10); Arterial Blood Gas Hematocrit 43.2 % (37-47); Base Excess ABG -1.6 mmol/L (-2.0-2.0); Blood Gas Allen Test Pos; Blood Gas Operator Identificat MONRO; Blood Gas Sample Site Not specified; Blood Gas Sample Type Arterial; Carboxyhemoglobin 0.7 %THgb (0.4-20.1); HCO3 ABG 25.6 mmol/L (22-26); HGB O2 Sat 97.4 % (95-100); Ionized Calcium Level - ABG 1.3 mmol/L (1.1-1.4); Methemoglobin 0.3 % (0.4-1.5); Oxygen Device VENT; Oxygen Saturation ABG 98.4; Total Hemoglobin 14.1 g/dL (12-16)
[2022-09-14] MEDS: heparin, porcine 1,000 unit/mL INJ 10 mL 1000 UNIT IV (13:07)
[2022-09-14 15:05] LABS: ABG PCO2 49.9 mmHg (35-45); ABG PH Result 7.32 (7.35-7.45); Alveolar-Arterial Oxygen Gradi 58.7 mmHg (5-10); Arterial Blood Gas Hematocrit 44.1 % (37-47); Base Excess ABG -0.9 mmol/L (-2.0-2.0); Blood Gas Allen Test Pos; Blood Gas Operator Identificat MONRO; Blood Gas Sample Site Not specified; Blood Gas Sample Type Arterial; Carboxyhemoglobin 1.1 %THgb (0.4-20.1); HCO3 ABG 25.8 mmol/L (22-26); HGB O2 Sat 95.7 % (95-100); Ionized Calcium Level - ABG 1.3 mmol/L (1.1-1.4); Methemoglobin 0.8 % (0.4-1.5); Oxygen Device VENT; Oxygen Saturation ABG 97.6; PO2 ABG 90.8 mmHg (80.0-100.0); Potassium Level - ABG 3.9 mmol/L (3.5-5.0); Total Hemoglobin 14.4 g/dL (12-16)
--- NOTE | 2022-09-14 17:18 | PC.NURSE ---
Propofol titrated off this shift. Versed titrated up per orders. Pt is sedated and resting well.
--- NOTE | 2022-09-14 17:51 | PM.PN ---
Subjective Subjective: Seen multiple times in the day. Overnight patient's oxygen requirements have gone up. She desaturated to 60% on movement. Today morning her ventilator settings on examination were PEEP of 16, FiO2 of 100% with tidal volume of 400 and rate of 24. ABG appreciated. She underwent dialysis today. Today morning patient was off pressors but during dialysis patient was placed on soft Levophed of 4 which was weaned down to 2. Sedation was switched from propofol to Versed as patient's urine was turning to green in color. On Versed patient is well sedated. By the end of the day patient was on Versed up for an fentanyl of 150. Ultrafiltration of around 3 L on dialysis yesterday. In last 24 hours patient is 2500 cc negative and overall 4.5 L negative since admission. Patient remains intubated and sedated. Vitals/I&O/Wt Last Vital Signs Temp 99.3 F 09/14/22 15:25 Pulse 97 09/14/22 16:30 Resp 22 H 09/14/22 16:18 BP 108/57 09/14/22 16:30 Pulse Ox 92 09/14/22 16:30 O2 Del Method 09/14/22 15:56 O2 Flow Rate 6 09/08/22 09:00 FiO2 80 09/14/22 16:18 09/14/22 09/14/22 09/14/22 06:59 14:59 22:59 Intake Total 558.106 / 3485.320 161.367 / 161.367 300 / 461.367 Output Total 425 / 5550 3300 / 3300 Balance 133.106 / -2064.680 161.367 / 161.367 -3000 / -2838.633 Weight last 48 hrs Weight 183.1 kg Weight 186.381 kg Weight 189.6 kg Weight 204.343 kg Weight 184.2 kg Physical Exam Narrative: Intubated sedated on mechanical ventilation. Well sedated today Const: COMMON NORMALS: patient oriented x3 HENMT: COMMON NORMALS: normocephalic, atraumatic and hearing grossly normal bilaterally HEAD & SCALP: normocephalic and atraumatic Resp: COMMON NORMALS: clear to auscultation bilaterally AUSCULTATION: clear to auscultation bilaterally OTHER: Diminished air entry bilaterally mostly in the left lower lobe Cardio: COMMON NORMALS: regular rate, regular rhythm, S1 normal heart sound present, S2 normal heart sound present, No gallops present (Cardio), No murmurs present (Cardio), No rub (Cardio) and Peripheral pulses 2+ throughout RATE: regular rate RHYTHM: regular rhythm HEART SOUNDS: S1 normal heart sound present and S2 normal heart sound present PERIPHERAL PULSES: Peripheral pulses 2+ throughout GI: COMMON NORMALS: Normal to inspection, nondistended, normoactive bowel sounds present, Soft to palpation, non-tender, No hepatosplenomegaly present and no masses AUSCULTATION: Yes normoactive bowel sounds PALPATION: Yes Soft to palpation and Yes No hepatosplenomegaly present RECTAL EXAM: deferred Extremity: COMMON NORMALS: no clubbing, cyanosis or edema and no pedal edema Neuro: COMMON NORMALS: patient oriented x3 Skin: OTHER: Blister present in right dorsum of the hand secondary to infiltration earlier in the admission which has popped now. Urinary Catheter Management: Cha: Cath Placed During This Visit: yes Reason for Continuing Indwelling Catheter: Accurate Measurement of Urinary Output in Critically Ill Patients Urinary Catheter Date of Insertion: 09/08/22 Urinary Catheter Time of Insertion: 10:29 Data 09/14/22 02:44 09/14/22 02:44 Micro: Microbiology 09/13/22 18:40 Gram Stain - Final Lung Left Lower Lobe 09/14/22 04:00 C.difficile Toxin B Gene (PCR) - Final Stool Routine Collection A&P Assessment and plan (1) ARDS (adult respiratory distress syndrome): (2) Shock: (3) Acute respiratory failure with hypoxia and hypercapnia: (4) Obstructive sleep apnea: (5) CHF (congestive heart failure): Qualifiers: Heart failure chronicity: acute on chronic Heart failure type: diastolic Qualified Code(s): I50.33 - Acute on chronic diastolic (congestive) heart failure (6) Dialysis patient: (7) Acute kidney injury: (8) S/P bronchoscopy with bronchoalveolar lavage: On 09/13. Encountered high mucus in left lower lobe. Follow cultures. Patient desaturated during procedures to high 70s and low 80s but otherwise tolerated procedure well. (9) Pneumonia: (10) Sepsis: (11) Flash pulmonary edema: (12) Hypertensive emergency: (13) Essential hypertension: Plan 42 year old female with known past medical history of hypertension noncompliant with antihypertensive medication, morbid obesity, was accepted as a direct transfer, she was initially admitted for the management of substernal chest pain, associated with acute onset of worsening shortness of breath. Assessment: Hypoxic and hypercapnic respiratory failure: Currently intubated. Most likely in setting of decompensated congestive heart failure in setting of hypertensive emergency and acute kidney dysfunction in setting of obstructive sleep apnea and possible pneumonia. Patient's oxygen requirement worsening today. Continue with Bumex to 2 mg 3 times daily. Add metolazone 5 mg oral daily. Most likely patient will need daily dialysis for now with target net negative from around 7 to 8 L. Fluid restriction as much as possible. Not able to maintain fluid restriction given the amount of IV fluids patient is getting because of sedation and pressor support. Hold off on tube feeds for now to reduce fluid intake. Will request to continue with dialysis. Check CTA for further evaluation of lung pathology. Concerns for possible mucous plug on left lower lobe on examination. Appreciate pulmonology recommendations. Strict input output charting, daily weights. Echocardiogram done during hospitalization shows EF of 60% with grade 1 diastolic dysfunction. Patient will need an outpatient sleep study to quantify sleep apnea. Patient will most likely need to be extubated and discharged on BiPAP. BRIDGETTE : Possibly secondary to ATN secondary to sepsis, in the setting of acute hypotension, versus possibly secondary to antihypertensive effects. Possible contrast-induced nephropathy as she has received a CTA recently, possible AIN Urine output improving. Renal function stable on dialysis for last 2 days. Appreciate nephrology recommendations. Continue daily dialysis. Given patient being ventilator dependent with difficult extubation given multiple comorbidities it would be best for patient to be as net negative as possible. Continue with Bumex as above. Monitor BMP daily for now. Sepsis secondary to hospital-acquired pneumonia: Currently septic versus cardiogenic shock. Sepsis during admission which was ruled in with elevated white cell count, hypotensive, target organ dysfunction with increasing oxygen requirement and eventual intubation, need for vasopressor support, x-ray chest showing possible infiltrates. Wean Levophed while keeping mean arterial pressure over 65. Saturation over 92%. Continue with sedation with fentanyl and propofol for now. Sedation vacation in next 24 hours. Blood cultures so far negative. Urine Legionella, bacterial antigen negative. Urine culture benign. Sputum culture negative. MRSA swab negative. Discontinue vancomycin. Patient has finished overall 7 days of Zosyn. Hold off on further antibiotics for now. Subclinical hypothyroidism: TSH more than 10 while T4 within normal limits. Given critical illness started on levothyroxine 50 mcg daily. Repeat thyroid profile in AM. Hypertension with hypertensive emergency with flash pulmonary edema on admission: Resolved Blood pressure is better controlled. We will continue to monitor blood pressures and start treatment accordingly. Goal blood pressure less than 140/ 90 mmHg with mean over 65 Right upper extremity swelling: DVT ruled out. Does have blister on the dorsum of right hand due to infiltration of IV antibiotics. Continue to monitor. Sedation: Propofol and fentanyl Glycemic control: Not needed. Check A1c. Hypoglycemia protocol Nutrition: Hold off on tube feeds for now to restrict fluid intake. Currently on goal of 60 cc/h. CODE STATUS: Discussed in detail with patient mother and who is the DPOA at bedside. Patient is full code. We discussed need for dialysis for quick improvement. Family verbalized understanding and are agreeable. PUD prophylaxis: Protonix DVT prophylaxis:Heparin 5000 SQ Q8h Discharge planning: We will plan on discharge to home versus SNF as per clinical improvement going forward once patient is extubated. Patient will need sleep study as an outpatient and possible discharge on BiPAP. Continue with care at ICU Plan for day: Switch from propofol to Versed. Increase fentanyl to 150 to 200 keeping patient sedated to prevent from breathing over the vent. Repeat dialysis. Increase PEEP on ventilator to 18 and decrease the rate. Repeat ABG and change accordingly. Repeat ABG at 8 PM. Continue to hold off on antibiotics. Continue with Bumex 2 mg every 8 hourly along with metolazone. Continue with plan for net negative. Monitor hemodynamics. Wean off Levophed on keeping mean over 65. Had family discussion with patient's mother, and father at bedside. We discussed that unfortunately even after the maximum treatment including dialysis, high ventilator settings patient continues to require high oxygen supplementation which is most likely secondary to baseline severe and diagnosed obstructive sleep apnea, morbid obesity leading to restrictive lung disease, diastolic heart failure and severe acute kidney injury requiring dialysis which is restricting the treatment. We discussed given the severe obstructive sleep apnea it is being difficult to decrease the ventilator settings for the patient and currently patient is going into ARDS. We discussed what patient might benefit from would be proning and paralyzing but unfortunately given her body habitus it is impossible at our hospital to do proning as we do not have the beds required for proning in severely morbid obese patient. We also discussed that is difficult to transfer the patient as it is unsafe given the 100% FiO2 requirement currently. We discussed that we can go higher on the PEEP but that would put her at a higher risk of possible pneumothorax. Family verbalized understanding and understand the risks involved with the possibility of increasing the PEEP and given the limited options they are agreeable for the same. They are thankful for the care patient is receiving at the hospital. They understand that patient is critically sick and even if she improves there is a high chance that she will remain on a ventilator for some time going forward and might need to go to LTAC also if and when she improves. This documentation was created by [email or web address] switchboard operator helper software. Every effort was made to ensure accuracy of switchboard operator helper. Any obvious errors or omissions should be clarified with the author of the document. Attestations Medical Necessity Statement*: Patient requires further hospitalization for management of shock, ARDS, ventilator dependent in setting of severe obstructive sleep apnea, acute kidney injury requiring dialysis Procedures Arterial Line Size (Gauge): 20 Coding Level of Care Code Critical Care >/= 30 minutes Critical care time (in minutes): 110 The high probability of a clinically significant, sudden or life threatening deterioration, as referenced in this documentation, required my full and direct attention, intervention and personal management. The critical care time shown is in addition to time spent performing any reported separately billable procedures and includes the following: [x] Data and vital sign review and interpretation [x] Patient assessment, examination and intervention [x] Medication orders and management [x] Patient/Family updates as able [x] Care Coordination and Documentation. Other Coding Information This patient has a high probability of clinically significant, sudden or life threatening deterioration of the patient's (neurological/pulmonary/cardiac/renal/ID/) systems required my full, direct attention, the highest level of physician preparedness for urgent intervention and personal management. I managed/supervised life or organ supporting interventions that required frequent physician assessment. I devoted my full attention in the ICU to the direct care of this patient for the period of time indicated above. Time I spent with family or surrogate(s) is included only if the patient was incapable of providing necessary information or participating in decision making. This time includes the following services provided: Telemetry review Mechanical Ventilation Hemodynamic interpretation, assessment and management Review and interpretation of CXR Review and interpretation of lab values Review and interpretation of microbiologic data and culture results Review of medications and administration Review and interpretation of Nutrition requirements and management Discussion of management with other consultants and services Clinical update to family members Diagnoses ARDS (adult respiratory distress syndrome) J80 Shock R57.9 Acute respiratory failure with hypoxia and hypercapnia J96.01; J96.02 Obstructive sleep apnea G47.33 CHF (congestive heart failure) I50.33 Heart failure chronicity: acute on chronic Heart failure type: diastolic Dialysis patient Z99.2 Acute kidney injury N17.9 S/P bronchoscopy with bronchoalveolar lavage Z98.890 Pneumonia J18.9 Sepsis A41.9 Flash pulmonary edema J81.0 Hypertensive emergency I16.1 Essential hypertension I10
[2022-09-14 19:04] LABS: Glucose Point of Care 108 mg/dL (70-110)
--- NOTE | 2022-09-14 19:41 | PM.PN ---
Subjective Subjective: Patient seen at bedside today Since yesterday evening her FiO2 requirement went up to 100% and PEEP 16, respiratory rate 24, ABG looked good Adequate urine output-she was off pressors briefly today morning-again required pressors while during today's hemodialysis Chest x-ray has less congestion today Currently she is sedated with Versed, fentanyl, Other labs and imaging appreciated Goals of care updated with family by the hospitalist taking care Medications: Reviewed: Yes Medication Review Details: Generic Name Dose Route Start Last Admin Trade Name Freq PRN Reason Stop Dose Admin Acetaminophen 650 mg 09/06/22 10:41 09/07/22 04:50 Acetaminophen 32 5 Mg Tablet PO 650 mg Q6H PRN Administration Mild/Mod Pain Or Temp >/= 101 Albuterol/Ipratrop ium 3 ml 09/06/22 10:45 09/10/22 08:21 Ipratropium-Albu terol 3 Ml Neb INHALATION 3 ml Q6H.RESP PRN Administration SHORTNESS OF KVNG TH Chlorhexidine Gluc millie 1 applic 09/10/22 01:00 09/10/22 04:17 Chlorhexidine Gl uconate 4% Btl 118 Ml TOPICAL Not Given 0100 STERLING Heparin Sodium (Po rcine) 5,000 unit 09/06/22 10:45 09/10/22 11:01 Heparin 5,000 Un it/Ml Inj 1 Ml SUBCUT 5,000 unit Q8H STERL[place] Administration Norepinephrine Bit artrate 4 mg 254 mls @ 0 mls/h r 09/07/22 22:30 09/08/22 13:45 / Dextrose IV Infused .Q0M STER[place] Titration Protocol Per Protocol Norepinephrine Bit artrate 8 mg 508 mls @ 0 mls/h r 09/08/22 11:30 09/09/22 10:04 / Dextrose IV 0 mcg/min .Q0M STERLING 0 mls/hr Titration Protocol Per Protocol Propofol 1,000 mg in 100 m ls @ 0 mls/hr 09/09/22 03:45 09/10/22 08:33 Diprivan IV 30 mcg/kg/min .Q0M STER[place]ING 31.14 mls/hr Administration Protocol Per Protocol Fentanyl 2,500 mcg / Sodium 250 mls @ 0 mls/h r 09/09/22 04:45 09/09/22 13:56 Chloride IV 30 mcg/hr .Q0M STER[place]ING 3 mls/hr Titration Protocol Per Protocol Piperacillin Sod/T azobactam 50 mls @ 12.5 mls /hr 09/10/22 08:00 09/10/22 07:58 Sod 2.25 gm/ Sod ium Chloride IV 12.5 mls/hr Q8H [place] Administration Ondansetron HCl 4 mg 09/06/22 10:41 09/08/22 16:34 Ondansetron 2 Mg /Ml Sdv 2 Ml IVP 4 mg Q8H PRN Administration vomiting, or N/V if npo Vitals/I&O/Wt Last Vital Signs Temp 99.3 F 09/14/22 15:25 Pulse 100 09/14/22 18:30 Resp 22 H 09/14/22 18:26 BP 109/46 09/14/22 18:30 Pulse Ox 91 09/14/22 18:30 O2 Del Method 09/14/22 15:56 O2 Flow Rate 6 09/08/22 09:00 FiO2 80 09/14/22 18:26 09/14/22 09/14/22 09/14/22 06:59 14:59 22:59 Intake Total 558.106 / 3485.320 161.367 / 161.367 300 / 461.367 Output Total 425 / 5550 3625 / 3625 Balance 133.106 / -2064.680 161.367 / 161.367 -3325 / -3163.633 Weight last 48 hrs Weight 403 lb 10.662 oz Weight 410 lb 14.4 oz Weight 417 lb 15.943 oz Weight 450 lb 8 oz Physical Exam Narrative: PHYSICAL EXAM: General: Morbidly obese, young female, lying in bed, sedated and intubated. HEENT:NCAT, PERRLA, EOMI Neck: Supple Lungs: Bilateral diffuse crackles Heart: s1/s2, RRR Abd: soft, NT, ND, BS + Normoactive Extremities: No edema, right forearm infiltrated FITNESS AND WELLNESS DIRECTOR: sedated and limited FITNESS AND WELLNESS DIRECTOR exam possible. SKIN: no rash LDA: # HD Cath : Right IJ 09/11/2022 # A line: 09/08/2022 left radial artery #CVC: Right femoral line 09/08/2022 Urinary Catheter Management: Cha: Cath Placed During This Visit: yes Reason for Continuing Indwelling Catheter: Accurate Measurement of Urinary Output in Critically Ill Patients Urinary Catheter Date of Insertion: 09/08/22 Urinary Catheter Time of Insertion: 10:29 Data 09/14/22 02:44 09/14/22 02:44 Other Labs: Radiology Impressions Duplex Scan Upper Extremity Artery 09/08/22 20:22 IMPRESSION: 1. No evidence for major vessel occlusion or significant stenosis. 2. Other details discussed above. Venous Duplex 09/08/22 20:31 IMPRESSION: No evidence of acute right upper extremity DVT. Renal Ultrasound 09/09/22 05:33 IMPRESSION: 1. No hydronephrosis of either kidney. 2. Technologist notes somewhat limited evaluation of the kidneys, due to patient condition and body habitus. 3. Other details discussed above. Chest CTA 09/13/22 10:26 IMPRESSION: 1. Very limited exam due to artifact from CT bore contact. 2. Nondiagnostic evaluation of the pulmonary arteries. 3. Complete atelectasis of both lower lobes and partial atelectasis of the left upper lobe. 4. Cardiac enlargement. 5. Enlarged main pulmonary artery suggests pulmonary hypertension. 6. Lexus hepatis and gastrohepatic ligament lymphadenopathy is partially imaged. Recommend follow-up abdomen pelvis CT. 7. Satisfactory position of lines and tubes. Chest X-Ray 09/14/22 09:06 IMPRESSION: Decreased pulmonary vascular congestion compared with previous Laboratory Results WBC 6.4 10^3/uL (4.0-10.0) 09/14/22 02:44 RBC 4.91 10^6/uL (4.1-5.3) 09/14/22 02:44 Hgb 13.3 g/dL (11.5-15.3) 09/14/22 02:44 Hct 44.6 % (37.0-47.0) 09/14/22 02:44 MCV 90.8 fl (81-99) 09/14/22 02:44 MCH 27.1 pg (28.0-34.0) L 09/14/22 02:44 MCHC 29.8 g/dL (30.0-36.0) L 09/14/22 02:44 RDW 14.3 % (12.1-15.1) 09/14/22 02:44 Plt Count 174 10^3/cmm (130-400) 09/14/22 02:44 MPV 10.3 fL (7.4-10.4) 09/14/22 02:44 Neut % (Auto) 66.5 % 09/14/22 02:44 Lymph % (Auto) 19.5 % 09/14/22 02:44 Fountain % (Auto) 10.8 % 09/14/22 02:44 Eos % (Auto) 2.2 % 09/14/22 02:44 Baso % (Auto) 0.5 % 09/14/22 02:44 Neut # (Auto) 4.23 10^3/uL (1.8-7.7) 09/14/22 02:44 Lymph # (Auto) 1.2 10^3/uL (0.8-4.8) 09/14/22 02:44 Fountain # (Auto) 0.7 10^3/uL (0.2-0.9) 09/14/22 02:44 Eos # (Auto) 0.1 10^3/uL (0.0-0.8) 09/14/22 02:44 Baso # (Auto) 0.0 10^3/uL (0.0-0.1) 09/14/22 02:44 Nucleated RBC % (auto) 0 % 09/14/22 02:44 Nucleated RBCs # 0.0 /100WBC 09/14/22 02:44 D-Dimer 3.45 ug/mIFEU (0-0.59) H 09/11/22 17:27 Specimen Type Arterial 09/14/22 14:53 Sample Site Not specified 09/14/22 14:53 ABG pH 7.32 (7.35-7.45) L 09/14/22 14:53 ABG pCO2 49.9 mmHg (35-45) H 09/14/22 14:53 ABG pO2 90.8 mmHg (80.0-100.0) 09/14/22 14:53 ABG HCO3 25.8 mmol/L (22-26) 09/14/22 14:53 ABG O2 Saturation 97.6 09/14/22 14:53 ABG Base Excess -0.9 mmol/L (-2.0-2.0) 09/14/22 14:53 Haider Test Pos 09/14/22 14:53 A-a O2 Gradient 58.7 mmHg (5-10) H 09/14/22 14:53 Hematocrit 44.1 % (37-47) 09/14/22 14:53 Hgb O2 Saturation 95.7 % (95-100) 09/14/22 14:53 Carboxyhemoglobin 1.1 %THgb (0.4-20.1) 09/14/22 14:53 Methemoglobin 0.8 % (0.4-1.5) 09/14/22 14:53 Total Hemoglobin 14.4 g/dL (12-16) 09/14/22 14:53 Sodium 136.0 mmol/L (131-143) 09/14/22 14:53 Potassium 3.9 mmol/L (3.5-5.0) 09/14/22 14:53 Glucose 85.0 mg/dL (70-115) 09/14/22 14:53 Ionized Calcium 1.3 mmol/L (1.1-1.4) 09/14/22 14:53 O2 Delivery Device Vent 09/14/22 14:53 O2 Liters/Min 7.0 % 09/08/22 15:57 FiO2 85.0 % 09/14/22 14:53 Tidal Volume 0.40 09/14/22 14:53 PEEP 18.0 cmH20 09/14/22 14:53 Insurance Sales Agent ID Monro 09/14/22 14:53 Sodium 136 mmol/L (136-145) 09/14/22 02:44 Potassium 4.5 mmol/L (3.5-5.1) 09/14/22 02:44 Chloride 95 mmol/L (98-107) L 09/14/22 02:44 Carbon Dioxide 24 mmol/L (22-29) 09/14/22 02:44 Anion Gap 21.5 (5-19) H 09/14/22 02:44 BUN 30 mg/dL (6-20) H 09/14/22 02:44 Creatinine 4.2 mg/dL (0.5-0.9) H 09/14/22 02:44 GFR Calculation 11.6 mL/min (90-130) L 09/14/22 02:44 Glucose 78 mg/dL (65-115) 09/14/22 02:44 POC Glucose 108 mg/dL (70-110) 09/14/22 19:00 Estimat Average Glucose 114 09/12/22 03:59 Hemoglobin A1c 5.6 % (4.0-6.0) 09/12/22 03:59 Calculated Osmolality 287 mOsm/kg (285-295) 09/14/22 02:44 Lactic Acid 1.6 mmol/L (0.5-2.2) 09/08/22 09:06 Calcium 9.8 mg/dL (8.5-10.5) 09/14/22 02:44 Phosphorus 5.9 mg/dL (2.5-4.5) H 09/11/22 05:57 Magnesium 2.1 mg/dL (1.7-2.3) 09/07/22 04:38 Iron 46 ug/dL (37-145) 09/11/22 05:57 TIBC 271 mcg/dl 09/11/22 05:57 % Saturation 16.9 % (20-50) L 09/11/22 05:57 Unsat Iron Binding 225 ug/dL (112-347) 09/11/22 05:57 Total Bilirubin 0.6 mg/dL (0.15-1.2) 09/14/22 02:44 AST 77 U/L (0-32) H 09/14/22 02:44 ALT 29 U/L (0-33) 09/14/22 02:44 Alkaline Phosphatase 71 U/L (35-105) 09/14/22 02:44 Creatine Kinase 225 U/L (26-192) H 09/10/22 03:30 CK-MB (CK-2) 14.9 ng/mL (0-5.34) H 09/10/22 03:30 CK-MB (CK-2) Rel Index 6.6 % (0.0-10.4) 09/10/22 03:30 NT-Pro-B Natriuret Pep 1494 pg/mL (0-125) H 09/11/22 05:57 Total Protein 6.9 g/dL (6.6-8.7) 09/14/22 02:44 Albumin 4.0 g/dL (3.5-5.2) 09/14/22 02:44 Globulin 2.9 g/dL (1.3-4.6) 09/14/22 02:44 Triglycerides 313 mg/dL (0-150) H 09/12/22 03:59 Cholesterol 140 mg/dL (0-200) 09/12/22 03:59 LDL Cholesterol, Calc 49 mg/dL (50-129) L 09/12/22 03:59 Total VLDL Cholesterol 63 mg/dL (0-30) H 09/12/22 03:59 HDL Cholesterol 28 mg/dL (60-100) L 09/12/22 03:59 Cholesterol/HDL Ratio 5.00 mg/dL (0.0-4.40) H 09/12/22 03:59 Vitamin B12 514 pg/mL (232-1245) 09/11/22 05:57 Folate 8.9 ng/mL (4.8-37.3) 09/11/22 05:57 Procalcitonin 0.35 ng/mL (0-0.5) 09/08/22 09:06 TSH 16.86 uIU/mL (0.27-4.20) H 09/11/22 05:57 Free T4 0.92 ng/dL (0.82-1.77) 09/11/22 05:57 Free T3 2.2 PG/ML (2.0-4.4) 09/11/22 05:57 Urine Color Straw (Yellow) 09/10/22 12:30 Urine Appearance Clear (CLEAR) 09/10/22 12:30 Urine pH 5 (5-7) 09/10/22 12:30 Ur Specific Harshaw 1.005 (1.005-1.030) 09/10/22 12:30 Urine Protein Neg (Negative) 09/10/22 12:30 Urine Glucose (UA) Norm (Normal) 09/10/22 12:30 Urine Ketones Negative (Negative) 09/10/22 12:30 Urine Blood 3+ (Negative) H 09/10/22 12:30 Urine Nitrate Negative (Negative) 09/10/22 12:30 Urine Bilirubin Neg (Negative) 09/10/22 12:30 Urine Urobilinogen Norm mg/dL (Negative) 09/10/22 12:30 Ur Leukocyte Esterase 2+ (Negative) H 09/10/22 12:30 Urine RBC 15-25 /hpf (0-2) H 09/10/22 12:30 Urine WBC 25-40 /hpf (0-5) H 09/10/22 12:30 Ur Squamous Epith Cells 5-10 /hpf (0-5) H 09/10/22 12:30 Ur Transition Epith Cell 0-4 /hpf 09/10/22 12:30 Amorphous Sediment Not Reportable 09/10/22 12:30 Urine Bacteria 1+ /hpf (NONE) H 09/10/22 12:30 Ur Random Sodium 93 mmol/L 09/09/22 01:10 Urine Creatinine 51 mg/dL (28-217) 09/09/22 01:10 Nasal Influ A H1 2008 PCR Not detected (NOT DETECT) 09/08/22 08:45 Bronch Specimen Source Left lower lobe 09/13/22 18:40 Bronchial Fluid Color Red 09/13/22 18:40 Bronchial Fluid Appearance Bloody (CLEAR) 09/13/22 18:40 Bronchial Fluid WBC 1361 /uL 09/13/22 18:40 Bronchial Fluid RBC 900 10^3/uL 09/13/22 18:40 Bronch Cells Counted 200 09/13/22 18:40 Bronchial Neutrophils 72.00 % (0.9-2.3) H 09/13/22 18:40 Bronchial Lymphocytes 26.00 % (10.71-12.91) H 09/13/22 18:40 Bronchial Eosinophils 1.00 % (0.13-0.25) H 09/13/22 18:40 Bronchial Macrophages 1.00 % (83.6-86.8) L 09/13/22 18:40 Bronchial Diff Comment Yes 09/13/22 18:40 Random Vancomycin 18.7 ug/mL (20.0-40.0) L 09/12/22 03:59 Adenovirus (PCR) Not detected (NOT DETECT) 09/08/22 08:45 C. pneumoniae DNA (PCR) Not detected (NOT DETECT) 09/08/22 08:45 Coronavirus 229E (PCR) Not detected (NOT DETECT) 09/08/22 08:45 Hepatitis A IgM Ab Non-reactive (Nonreactive) 09/11/22 05:57 Hep Bs Antigen Non-reactive (Nonreactive) 09/11/22 05:57 Hep Bs Antibody 12.8 (11.5-1000) 09/11/22 05:57 Hep B Core Total Ab Non-reactive (Nonreactive) 09/11/22 05:57 Hepatitis C Antibody Non-reactive (Nonreactive) 09/11/22 05:57 Human Metapneumovir PCR Not detected (NOT DETECT) 09/08/22 08:45 Influenza A (H1) PCR Not detected (NOT DETECT) 09/08/22 08:45 Influenza A (H3) PCR Not detected (NOT DETECT) 09/08/22 08:45 Influenza Type A (PCR) Not detected (NOT DETECT) 09/08/22 08:45 Influenza Type B (PCR) Not detected (NOT DETECT) 09/08/22 08:45 M. pneumoniae (PCR) Not detected (NOT DETECT) 09/08/22 08:45 Parainfluenza 1 (PCR) Not detected (NOT DETECT) 09/08/22 08:45 Parainfluenza 2 (PCR) Not detected (NOT DETECT) 09/08/22 08:45 Parainfluenza 3 (PCR) Not detected (NOT DETECT) 09/08/22 08:45 Parainfluenza 4 (PCR) Not detected (NOT DETECT) 09/08/22 08:45 RSV Type A (PCR) Not detected (NOT DETECT) 09/08/22 08:45 RSV Type B (PCR) Not detected (NOT DETECT) 09/08/22 08:45 Entero/Rhino (PCR) Not detected (NOT DETECT) 09/08/22 08:45 SARS-CoV-2 (PCR) Not detected (NOT DETECT) 09/08/22 08:45 Micro: Microbiology 09/13/22 18:40 Gram Stain - Final Lung Left Lower Lobe 09/14/22 04:00 C.difficile Toxin B Gene (PCR) - Final Stool Routine Collection A&P Assessment and plan (1) Acute respiratory failure with hypoxia and hypercapnia: (2) Obstructive sleep apnea: (3) Pneumonia: (4) Flash pulmonary edema: (5) Hypertensive emergency: (6) Acute kidney injury: (7) ARDS (adult respiratory distress syndrome): Plan ASSESSMENT/PLAN:Overall: 42-year-old young female with past medical history of hypertension-noncompliant with her medications-initially comes with hypertensive emergency with flash pulmonary edema-treated with nicardipine drip-becomes hypotensive-started on pressors and antibiotics for presumed sepsis. She went into respiratory failure requiring mechanical ventilation support. She also developed BRIDGETTE requiring temporary hemodialysis. NEURO: #Sedation-currently on fentanyl and Versed gtt. -Adjust to maintain RASS -2 PULM: #Acute hypoxic and hypercapnic respiratory failure-probably there is a chronic component given her morbid obesity #?? Possible ARDS -Acute component secondary to flash pulmonary edema due to hypertensive emergency - - FiO2 requirement went up to 100% % and PEEP 16-tidal volume 400, respiratory rate 24, ABG is good -We made some adjustments to by increasing PEEP to 18 with an intention to counteract her chest wall resistance given her morbid obesity-her FiO2 gradually came down to 80% throughout the day -We will continue to monitor with serial ABG -She underwent CTA for increasing oxygen requirements-there was a lot of motion artifact and CT was nondiagnostic for pulmonary arteries. There is moderate cardiac enlargement and enlarged main pulmonary artery suggesting pulmonary hypertension. There was partial atelectasis of left upper lobe and complete atelectasis of both lower lobes. -She underwent bronchoscopic evaluation for airways 09/13/2022-there were thick mucus secretions in bilateral lower lobes which were suctioned-BAL neutrophils predominant-final cultures pending -She is on scheduled nebulization with DuoNeb as well as Pulmicort -Currently she is on Bumex 2 Mg Q8 over follow-up fluid overload-and temporary hemodialysis as per renal team -We will continue with awakening and breathing trials once FiO2 is down to 50% CVS: #Hypertensive emergency-treated with nicardipine drip-resolved #Circulatory shock-likely secondary to possible nicotine toxicity or demand ischemia due to underlying? Sepsis -Currently requiring Levophed 6 mcg/hour -Echocardiogram during admission showed normal LV size, systolic function with EF 60%. Grade 1 diastolic dysfunction. -Elevated BNP -We will continue with Bumex 2 Mg every 8 hours and and started on metolazone 5 Mg p.o. daily fluid removal through temporary hemodialysis -Continue close hemodynamic and cardiac monitoring GI: #Diet: TF nephro #GI prophylaxis: PPI #LFTs: elevated - monitor RENAL: #BRIDGETTE-most likely prerenal secondary to ischemic ATN due to hypotension/? Contrast-induced nephropathy -- Currently on daily hemodialysis for 3 hours as per renal team to achieve net negative fluid balance -Electrolytes and bicarb within normal limits -Adequate urine output -Currently on Bumex 2 Mg 3 times daily and added metolazone 5 Mg p.o. daily; temporary hemodialysis for fluid removal as per nephro team HEM: #Leukocytosis-improving #H&H stable #Normal platelets ENDO: #Significantly elevated TSH-suspect hypothyroidism-patient on levothyroxine 50 mcg q. p.o. daily-she may need to follow-up as outpatient #Normal blood sugars ID: #Presumably met sepsis criteria -Pulmonary infiltrates on imaging-with leukocytosis-and hypotension-there was a suspicion if it is all septic shock secondary to pneumonia; -However infiltrates can be explained with fluid overload, hypotension secondary to need Cardene drip -Patient procalcitonin is low -So far cultures are negative, and MRSA nares negative-final cultures pending -Discontinued vancomycin, completed 7 days of Zosyn -BAL neutrophil predominance-final cultures pending Code Status: Full code Disposition: ICU Critically ill: Yes MD discussed with: Hospitalist, RN, RT taking care of the patient ICU CHECKLIST: Problem list updated Verbal orders reviewed and signed Analgesia: Fentanyl Glycemic Control: N/A Nutrition: TF nephro Restraint Renewal (within 24 hrs): Yes Ulcer Prophylaxis: PPI Chemical Thromboprophylaxis: Prophylaxis: Heparin subcu Mechanical Thromboprophylaxis: SCDs Need for Central line: Yes for multiple medications Need for Cha catheter: Yes for urine output monitoring Attestations Medical Necessity Statement*: Acute hypoxic/hypercapnic respiratory failure secondary to fluid overload due to hypertensive emergency-requiring mechanical ventilation; will continue to monitor at least 48 hours in ICU Critical Care Time: This patient has a high probability of? clinically sig nificant, sudden o r life threatening deterioration of the patient's (jonathan rological/pulmonar y/cardiac/renal/ID /endocrine) system s required my full , direct attention , the highest leve l of physician pre paredness for urge nt intervention an d personal managem ent.? I managed/meade pervised life or o rgan supporting in terventions that r equired frequent p hysician assessmen t.? I devoted my f ull attention in t he ICU to the dire ct care of this pa tient for the kareen od of time indicat ed above.? Time I spent with family or surrogate(s) is included only if the patient was in capable of providi ng necessary infor mation or particip ating in decision making.? This annie e includes the [facility] services pr ovided: Telemetry review Mechanical Ventilation Hemod ynamic interpretat ion, assessment an d management Revie w and interpretati on of CXR Review a nd interpretation of lab values Revi ew and interpretat ion of microbiolog ic data and cultur e results Review o f medications and administration Rev iew and interpreta tion of Nutrition requirements and m anagement Discussi on of management w ith other consulta nts and services C linical update to family members [x ] Data and vital s ign review and int erpretation [x] Segun humphrey assessment, examination and in tervention [x] Doc umentation [x] Med ication orders and management Time spent for teaching as well as perfor aydin procedures ar e billed separatel y and is not inclu ded in this note ? Critical Care Annie e (min):55 Procedures Arterial Line Size (Gauge): 20 Coding Level of Care Code Critical Care >/= 30 minutes Diagnoses Acute respiratory failure with hypoxia and hypercapnia J96.01; J96.02 Obstructive sleep apnea G47.33 Pneumonia J18.9 Flash pulmonary edema J81.0 Hypertensive emergency I16.1 Acute kidney injury N17.9 ARDS (adult respiratory distress syndrome) J80 Time Spent (min) 55
--- NOTE | 2022-09-14 20:20 | PC.NURSE ---
Propofol was shut off during dayshift. 50ml Propofol removed from pt room and wasted w/ SHITAL Rodas.
[2022-09-14 20:21] LABS: Free T4 Free Thyroxine 0.68 ng/dL (0.82-1.77); Thyroid Stimulating Hormone 17.49 uIU/mL (0.27-4.20)
[2022-09-14 20:37] LABS: ABG PCO2 51.7 mmHg (35-45); Alveolar-Arterial Oxygen Gradi 54.2 mmHg (5-10); Base Excess ABG -1.8 mmol/L (-2.0-2.0); Blood Gas Operator Identificat JB; Blood Gas Sample Site Not specified; Blood Gas Sample Type Arterial; Carboxyhemoglobin 1.3 %THgb (0.4-20.1); HCO3 ABG 25.4 mmol/L (22-26); HGB O2 Sat 94.8 % (95-100); Ionized Calcium Level - ABG 1.3 mmol/L (1.1-1.4); Methemoglobin 0.9 % (0.4-1.5); Oxygen Device VENT; Oxygen Saturation ABG 96.8; PO2 ABG 86.1 mmHg (80.0-100.0); Potassium Level - ABG 4.1 mmol/L (3.5-5.0); Total Hemoglobin 14.4 g/dL (12-16)
[2022-09-14] MEDS: sodium chloride 0.9% 500 ML XX (20:44)
[2022-09-15] VITALS (86 sets, daily range): BP systolic 92–165; BP diastolic 40–90; PULSE 90–114; RESP 24–26; TEMP 37.3–37.9; O2SAT 88–93
[2022-09-15 00:23] LABS: Glucose Point of Care 80 mg/dL (70-110)
[2022-09-15] MEDS: bumetanide 0.25 mg/mL SDV 10 mL 2 MG IVP ×3 (01:57→17:32)
[2022-09-15] MEDS: heparin 5,000 unit/mL INJ 1 mL 5000 UNIT SUBCUT ×3 (01:57→17:32)
[2022-09-15 02:53] LABS: Basophils % 0.3 %; Eosinophils # 0.2 10^3/uL (0.0-0.8); Eosinophils % 2.7 %; Hematocrit 44.1 % (37.0-47.0); Hemoglobin 13.4 g/dL (11.5-15.3); Lymphocytes # 1.4 10^3/uL (0.8-4.8); Lymphocytes % 18.3 %; Mean Corpuscular HGB Conc 30.4 g/dL (30.0-36.0); Mean Corpuscular Hemoglobin 27.5 pg (28.0-34.0); Mean Corpuscular Volume 90.6 fl (81-99); Mean Platelet Volume 9.8 fL (7.4-10.4); Monocytes # 0.9 10^3/uL (0.2-0.9); Monocytes % 11.7 %; Neutrophils # 4.97 10^3/uL (1.8-7.7); Neutrophils % 66.3 %; Nucleated Red Blood Cells % 0 %; Platelet Count 183 10^3/cmm (130-400); Red Blood Count 4.87 10^6/uL (4.1-5.3); Red Cell Distribution Width 14.3 % (12.1-15.1); White Blood Count 7.5 10^3/uL (4.0-10.0)
[2022-09-15 03:09] LABS: Alanine Aminotransferase 29 U/L (0-33); Albumin Level 3.7 g/dL (3.5-5.2); Alkaline Phosphatase 73 U/L (35-105); Anion Gap 22.1 (5-19); Aspartate Amino Transferase 69 U/L (0-32); Blood Urea Nitrogen 26 mg/dL (6-20); Calcium 10.1 mg/dL (8.5-10.5); Carbon Dioxide 22 mmol/L (22-29); Chloride 94 mmol/L (98-107); Globulin 3.2 g/dL (1.3-4.6); Glomerular Filtration Rate 10.2 mL/min (90-130); Glucose 76 mg/dL (65-115); Osmolality Calculated 282 mOsm/kg (285-295); Potassium 4.1 mmol/L (3.5-5.1); Sodium 134 mmol/L (136-145); Total Bilirubin 0.7 mg/dL (0.15-1.2); Total Protein 6.9 g/dL (6.6-8.7)
[2022-09-15] MEDS: ipratropium-albuterol 3 mL Neb INHALATION ×6 (03:23→23:35)
[2022-09-15] MEDS: acetylcysteine 200 mg/mL MDV 10 mL 100 MG INHALATION ×6 (03:23→23:34)
[2022-09-15 03:36] LABS: Thyroid Stimulating Hormone 18.45 uIU/mL (0.27-4.20)
[2022-09-15 03:47] LABS: ABG PCO2 45.7 mmHg (35-45); ABG PH Result 7.32 (7.35-7.45); Alveolar-Arterial Oxygen Gradi 54.4 mmHg (5-10); Arterial Blood Gas Hematocrit 42.6 % (37-47); Base Excess ABG -2.7 mmol/L (-2.0-2.0); Blood Gas Operator Identificat JB; Blood Gas Sample Site Not specified; Blood Gas Sample Type Arterial; Carboxyhemoglobin 1.2 %THgb (0.4-20.1); HCO3 ABG 23.6 mmol/L (22-26); HGB O2 Sat 96.1 % (95-100); Ionized Calcium Level - ABG 1.3 mmol/L (1.1-1.4); Methemoglobin 0.8 % (0.4-1.5); Oxygen Device VENT; PO2 ABG 91.8 mmHg (80.0-100.0); Potassium Level - ABG 3.8 mmol/L (3.5-5.0); Total Hemoglobin 13.9 g/dL (12-16)
[2022-09-15] MEDS: chlorhexidine gluconate 4% Btl 118 mL 1 APPLIC TOPICAL (04:24)
[2022-09-15] MEDS: acetaminophen 325 mg Tablet 650 MG PO (05:54)
[2022-09-15] MEDS: levothyroxine 50 mcg Tablet PO (05:54)
[2022-09-15 06:11] LABS: Glucose Point of Care 97 mg/dL (70-110)
--- NOTE | 2022-09-15 06:19 | PC.NURSE ---
Pt has not tolerated turning throughout the shift, SpO2 drops to approximately 85% and slowly recovers- for this reason pt has not been frequently turned. @approximately 0615 SpO2 dropped to 85% randomly, and has only recovered to 89/90% after suctioning/sitting up in bed. Latanya from RT aware and at bedside to see pt.
--- NOTE | 2022-09-15 07:04 | XR_ITS ---
WS: [id number] EXAMINATION: XR chest 1V portable [id number] REASON FOR EXAM: pneumonia COMPARISON: None available. ORDER DATE: 09/15/2022 7:05 AM TECHNIQUE: A single, portable frontal chest x-ray was obtained. The right internal jugular venous dialysis catheter is unchanged. The tip appears to end in the super ior vena cava just above the cavoatrial junction. No pneumothorax is seen. The endotracheal tube and nasogastric tube remain in the same position. The heart remains enlarged. Pulmonary vascular congesti on is unchanged. Left basal consolidation and/or effusion unchanged. XR/XR chest 1V portable [id number] IMPRESSION: Unchanged pulmonary vascular congestion compared with previous
[2022-09-15] MEDS: budesonide 0.5 mg/2 mL Neb INHALATION ×2 (07:43→19:49)
[2022-09-15] MEDS: metOLazone 5 MG Tablet PO (08:05)
[2022-09-15] MEDS: pantoprazole 40 mg SDV IVP (08:05)
[2022-09-15 09:26] LABS: Cortisol Random 2.67 ug/dL (2.47-19.5)
[2022-09-15] MEDS: levothyroxine 100 mcg SDV 50 MCG IVP (10:50)
[2022-09-15] MEDS: hydrocortisone 100 mg/2 mL SDV IVP ×3 (10:51→23:08)
--- NOTE | 2022-09-15 13:11 | PC.HD ---
Upon initiation of treatment, both ports of patient's R IJ catheter were somewhat sluggish. Lines were set up in the normal configuration; however, AP and GREEN END DEPARTMENT SUPERVISOR pressures were both elevated. Lines were then reversed with basically no change in the pressures. Blood flow rate lowered to 250. Pressures remain within acceptable ranges, but are very close to being excessive. If this occurs, blood flow rate will be reduced. Division Manager is aware of this issue.
[2022-09-15 14:35] LABS: Glucose Point of Care 94 mg/dL (70-110)
[2022-09-15 16:41] LABS: ABG PCO2 35.5 mmHg (35-45); ABG PH Result 7.31 (7.35-7.45); Arterial Blood Gas Hematocrit 38.5 % (37-47); Base Excess ABG -7.4 mmol/L (-2.0-2.0); Blood Gas Allen Test Pos; Blood Gas Sample Type Arterial; Carboxyhemoglobin 1.1 %THgb (0.4-20.1); HGB O2 Sat 96.4 % (95-100); Oxygen Saturation ABG 98.4; Potassium Level - ABG 3.2 mmol/L (3.5-5.0); Total Hemoglobin 12.6 g/dL (12-16)
[2022-09-15 16:42] LABS: Alveolar-Arterial Oxygen Gradi 54.1 mmHg (5-10); Blood Gas Operator Identificat MONRO; Blood Gas Sample Site ART LINE; Oxygen Device VENT
--- NOTE | 2022-09-15 16:53 | PM.PN ---
Subjective Subjective: Patient seen multiple times at bedside Overall clinically unchanged Chest x-ray looks congested Received another session of hemodialysis Requiring 85% FiO2 and PEEP of 18 Other labs and imaging reviewed Medications: Reviewed: Yes Medication Review Details: Generic Name Dose Route Start Last Admin Trade Name Freq PRN Reason Stop Dose Admin Acetaminophen 650 mg 09/06/22 10:41 09/07/22 04:50 Acetaminophen 32 5 Mg Tablet PO 650 mg Q6H PRN Administration Mild/Mod Pain Or Temp >/= 101 Albuterol/Ipratrop ium 3 ml 09/06/22 10:45 09/10/22 08:21 Ipratropium-Albu terol 3 Ml Neb INHALATION 3 ml Q6H.RESP PRN Administration SHORTNESS OF KVNG TH Chlorhexidine Gluc millie 1 applic 09/10/22 01:00 09/10/22 04:17 Chlorhexidine Gl uconate 4% Btl 118 Ml TOPICAL Not Given 0100 [place] Heparin Sodium (Po rcine) 5,000 unit 09/06/22 10:45 09/10/22 11:01 Heparin 5,000 Un it/Ml Inj 1 Ml SUBCUT 5,000 unit Q8H [place] Administration Norepinephrine Bit artrate 4 mg 254 mls @ 0 mls/h r 09/07/22 22:30 09/08/22 13:45 / Dextrose IV Infused .Q0M [place] Titration Protocol Per Protocol Norepinephrine Bit artrate 8 mg 508 mls @ 0 mls/h r 09/08/22 11:30 09/09/22 10:04 / Dextrose IV 0 mcg/min .Q0M [place] 0 mls/hr Titration Protocol Per Protocol Propofol 1,000 mg in 100 m ls @ 0 mls/hr 09/09/22 03:45 09/10/22 08:33 Diprivan IV 30 mcg/kg/min .Q0M [place] 31.14 mls/hr Administration Protocol Per Protocol Fentanyl 2,500 mcg / Sodium 250 mls @ 0 mls/h r 09/09/22 04:45 09/09/22 13:56 Chloride IV 30 mcg/hr .Q0M [place] 3 mls/hr Titration Protocol Per Protocol Piperacillin Sod/T azobactam 50 mls @ 12.5 mls /hr 09/10/22 08:00 09/10/22 07:58 Sod 2.25 gm/ Sod ium Chloride IV 12.5 mls/hr Q8H [place] Administration Ondansetron HCl 4 mg 09/06/22 10:41 09/08/22 16:34 Ondansetron 2 Mg /Ml Sdv 2 Ml IVP 4 mg Q8H PRN Administration vomiting, or N/V if npo Vitals/I&O/Wt Last Vital Signs Temp 99.9 F H 09/15/22 13:09 Pulse 95 09/15/22 16:03 Resp 24 H 09/15/22 16:05 BP 130/66 09/15/22 13:09 Pulse Ox 91 09/15/22 16:05 O2 Del Method 09/15/22 16:03 O2 Flow Rate 6 09/08/22 09:00 FiO2 85 09/15/22 16:05 09/15/22 09/15/22 09/15/22 06:59 14:59 22:59 Intake Total 279.339 / 992.749 113.359 / 113.359 59.55 / 172.909 Output Total 375 / 4000 Balance -95.661 / -3007.251 113.359 / 113.359 59.55 / 172.909 Weight last 48 hrs Weight 400 lb 1.76 oz Weight 403 lb 10.662 oz Weight 410 lb 14.4 oz Weight 417 lb 15.943 oz Physical Exam Narrative: PHYSICAL EXAM: General: Morbidly obese, young female, lying in bed, sedated and intubated. 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 SKIN: no rash LDA: # HD Cath : Right IJ 09/11/2022 # A line: 09/08/2022 left radial artery #CVC: Right femoral line 09/08/2022 Urinary Catheter Management: Cha: Cath Placed During This Visit: yes Reason for Continuing Indwelling Catheter: Accurate Measurement of Urinary Output in Critically Ill Patients Urinary Catheter Date of Insertion: 09/08/22 Urinary Catheter Time of Insertion: 10:29 Data 09/15/22 02:38 09/15/22 02:38 Other Labs: Radiology Impressions Duplex Scan Upper Extremity Artery 09/08/22 20:22 IMPRESSION: 1. No evidence for major vessel occlusion or significant stenosis. 2. Other details discussed above. Venous Duplex 09/08/22 20:31 IMPRESSION: No evidence of acute right upper extremity DVT. Renal Ultrasound 09/09/22 05:33 IMPRESSION: 1. No hydronephrosis of either kidney. 2. Technologist notes somewhat limited evaluation of the kidneys, due to patient condition and body habitus. 3. Other details discussed above. Chest CTA 09/13/22 10:26 IMPRESSION: 1. Very limited exam due to artifact from CT bore contact. 2. Nondiagnostic evaluation of the pulmonary arteries. 3. Complete atelectasis of both lower lobes and partial atelectasis of the left upper lobe. 4. Cardiac enlargement. 5. Enlarged main pulmonary artery suggests pulmonary hypertension. 6. Lexus hepatis and gastrohepatic ligament lymphadenopathy is partially imaged. Recommend follow-up abdomen pelvis CT. 7. Satisfactory position of lines and tubes. Chest X-Ray 09/15/22 07:04 IMPRESSION: Unchanged pulmonary vascular congestion compared with previous Laboratory Results WBC 7.5 10^3/uL (4.0-10.0) 09/15/22 02:38 RBC 4.87 10^6/uL (4.1-5.3) 09/15/22 02:38 Hgb 13.4 g/dL (11.5-15.3) 09/15/22 02:38 Hct 44.1 % (37.0-47.0) 09/15/22 02:38 MCV 90.6 fl (81-99) 09/15/22 02:38 MCH 27.5 pg (28.0-34.0) L 09/15/22 02:38 MCHC 30.4 g/dL (30.0-36.0) 09/15/22 02:38 RDW 14.3 % (12.1-15.1) 09/15/22 02:38 Plt Count 183 10^3/cmm (130-400) 09/15/22 02:38 MPV 9.8 fL (7.4-10.4) 09/15/22 02:38 Neut % (Auto) 66.3 % 09/15/22 02:38 Lymph % (Auto) 18.3 % 09/15/22 02:38 [place] % (Auto) 11.7 % 09/15/22 02:38 Eos % (Auto) 2.7 % 09/15/22 02:38 Baso % (Auto) 0.3 % 09/15/22 02:38 Neut # (Auto) 4.97 10^3/uL (1.8-7.7) 09/15/22 02:38 Lymph # (Auto) 1.4 10^3/uL (0.8-4.8) 09/15/22 02:38 [place] # (Auto) 0.9 10^3/uL (0.2-0.9) 09/15/22 02:38 Eos # (Auto) 0.2 10^3/uL (0.0-0.8) 09/15/22 02:38 Baso # (Auto) 0.0 10^3/uL (0.0-0.1) 09/15/22 02:38 Nucleated RBC % (auto) 0 % 09/15/22 02:38 Nucleated RBCs # 0.0 /100WBC 09/15/22 02:38 D-Dimer 3.45 ug/mIFEU (0-0.59) H 09/11/22 17:27 Specimen Type Arterial 09/15/22 16:29 Sample Site Art line 09/15/22 16:29 ABG pH 7.31 (7.35-7.45) L 09/15/22 16:29 ABG pCO2 35.5 mmHg (35-45) 09/15/22 16:29 ABG pO2 100.0 mmHg (80.0-100.0) 09/15/22 16:29 ABG HCO3 18.0 mmol/L (22-26) L 09/15/22 16:29 ABG O2 Saturation 98.4 09/15/22 16:29 ABG Base Excess -7.4 mmol/L (-2.0-2.0) L 09/15/22 16:29 [place] Test Pos 09/15/22 16:29 A-a O2 Gradient 54.1 mmHg (5-10) H 09/15/22 16:29 Hematocrit 38.5 % (37-47) 09/15/22 16:29 Hgb O2 Saturation 96.4 % (95-100) 09/15/22 16:29 Carboxyhemoglobin 1.1 %THgb (0.4-20.1) 09/15/22 16:29 Methemoglobin 1.0 % (0.4-1.5) 09/15/22 16:29 Total Hemoglobin 12.6 g/dL (12-16) 09/15/22 16:29 Sodium 139.0 mmol/L (131-143) 09/15/22 16:29 Potassium 3.2 mmol/L (3.5-5.0) L 09/15/22 16:29 Glucose 82.0 mg/dL (70-115) 09/15/22 16:29 Ionized Calcium 1.0 mmol/L (1.1-1.4) L 09/15/22 16:29 O2 Delivery Device Vent 09/15/22 16:29 O2 Liters/Min 7.0 % 09/08/22 15:57 FiO2 80.0 % 09/15/22 16:29 Tidal Volume 0.40 09/15/22 16:29 PEEP 18.0 cmH20 09/15/22 16:29 Bi Consultant ID [place] 09/15/22 16:29 Sodium 134 mmol/L (136-145) L 09/15/22 02:38 Potassium 4.1 mmol/L (3.5-5.1) 09/15/22 02:38 Chloride 94 mmol/L (98-107) L 09/15/22 02:38 Carbon Dioxide 22 mmol/L (22-29) 09/15/22 02:38 Anion Gap 22.1 (5-19) H 09/15/22 02:38 BUN 26 mg/dL (6-20) H 09/15/22 02:38 Creatinine 4.7 mg/dL (0.5-0.9) H 09/15/22 02:38 GFR Calculation 10.2 mL/min (90-130) L 09/15/22 02:38 Glucose 76 mg/dL (65-115) 09/15/22 02:38 POC Glucose 94 mg/dL (70-110) 09/15/22 14:19 Estimat Average Glucose 114 09/12/22 03:59 Hemoglobin A1c 5.6 % (4.0-6.0) 09/12/22 03:59 Calculated Osmolality 282 mOsm/kg (285-295) L 09/15/22 02:38 Lactic Acid 1.6 mmol/L (0.5-2.2) 09/08/22 09:06 Calcium 10.1 mg/dL (8.5-10.5) 09/15/22 02:38 Phosphorus 5.9 mg/dL (2.5-4.5) H 09/11/22 05:57 Magnesium 2.1 mg/dL (1.7-2.3) 09/07/22 04:38 Iron 46 ug/dL (37-145) 09/11/22 05:57 TIBC 271 mcg/dl 09/11/22 05:57 % Saturation 16.9 % (20-50) L 09/11/22 05:57 Unsat Iron Binding 225 ug/dL (112-347) 09/11/22 05:57 Total Bilirubin 0.7 mg/dL (0.15-1.2) 09/15/22 02:38 AST 69 U/L (0-32) H 09/15/22 02:38 ALT 29 U/L (0-33) 09/15/22 02:38 Alkaline Phosphatase 73 U/L (35-105) 09/15/22 02:38 Creatine Kinase 225 U/L (26-192) H 09/10/22 03:30 CK-MB (CK-2) 14.9 ng/mL (0-5.34) H 09/10/22 03:30 CK-MB (CK-2) Rel Index 6.6 % (0.0-10.4) 09/10/22 03:30 NT-Pro-B Natriuret Pep 1494 pg/mL (0-125) H 09/11/22 05:57 Total Protein 6.9 g/dL (6.6-8.7) 09/15/22 02:38 Albumin 3.7 g/dL (3.5-5.2) 09/15/22 02:38 Globulin 3.2 g/dL (1.3-4.6) 09/15/22 02:38 Triglycerides 313 mg/dL (0-150) H 09/12/22 03:59 Cholesterol 140 mg/dL (0-200) 09/12/22 03:59 LDL Cholesterol, Calc 49 mg/dL (50-129) L 09/12/22 03:59 Total VLDL Cholesterol 63 mg/dL (0-30) H 09/12/22 03:59 HDL Cholesterol 28 mg/dL (60-100) L 09/12/22 03:59 Cholesterol/HDL Ratio 5.00 mg/dL (0.0-4.40) H 09/12/22 03:59 Vitamin B12 514 pg/mL (232-1245) 09/11/22 05:57 Folate 8.9 ng/mL (4.8-37.3) 09/11/22 05:57 Procalcitonin 0.35 ng/mL (0-0.5) 09/08/22 09:06 TSH 18.45 uIU/mL (0.27-4.20) H 09/15/22 02:38 Free T4 0.60 ng/dL (0.82-1.77) L 09/15/22 02:38 Free T3 2.2 PG/ML (2.0-4.4) 09/11/22 05:57 Random Cortisol 2.67 ug/dL (2.47-19.5) 09/15/22 02:38 Urine Color Straw (Yellow) 09/10/22 12:30 Urine Appearance Clear (CLEAR) 09/10/22 12:30 Urine pH 5 (5-7) 09/10/22 12:30 Ur Specific [place] 1.005 (1.005-1.030) 09/10/22 12:30 Urine Protein Neg (Negative) 09/10/22 12:30 Urine Glucose (UA) Norm (Normal) 09/10/22 12:30 Urine Ketones Negative (Negative) 09/10/22 12:30 Urine Blood 3+ (Negative) H 09/10/22 12:30 Urine Nitrate Negative (Negative) 09/10/22 12:30 Urine Bilirubin Neg (Negative) 09/10/22 12:30 Urine Urobilinogen Norm mg/dL (Negative) 09/10/22 12:30 Ur Leukocyte Esterase 2+ (Negative) H 09/10/22 12:30 Urine RBC 15-25 /hpf (0-2) H 09/10/22 12:30 Urine WBC 25-40 /hpf (0-5) H 09/10/22 12:30 Ur Squamous Epith Cells 5-10 /hpf (0-5) H 09/10/22 12:30 Ur Transition Epith Cell 0-4 /hpf 09/10/22 12:30 Amorphous Sediment Not Reportable 09/10/22 12:30 Urine Bacteria 1+ /hpf (NONE) H 09/10/22 12:30 Ur Random Sodium 93 mmol/L 09/09/22 01:10 Urine Creatinine 51 mg/dL (28-217) 09/09/22 01:10 Nasal Influ A H1 2009 PCR Not detected (NOT DETECT) 09/08/22 08:45 Bronch Specimen Source Left lower lobe 09/13/22 18:40 Bronchial Fluid Color Red 09/13/22 18:40 Bronchial Fluid Appearance Bloody (CLEAR) 09/13/22 18:40 Bronchial Fluid WBC 1361 /uL 09/13/22 18:40 Bronchial Fluid RBC 900 10^3/uL 09/13/22 18:40 Bronch Cells Counted 200 09/13/22 18:40 Bronchial Neutrophils 72.00 % (0.9-2.3) H 09/13/22 18:40 Bronchial Lymphocytes 26.00 % (10.71-12.91) H 09/13/22 18:40 Bronchial Eosinophils 1.00 % (0.13-0.25) H 09/13/22 18:40 Bronchial Macrophages 1.00 % (83.6-86.8) L 09/13/22 18:40 Bronchial Diff Comment Yes 09/13/22 18:40 Random Vancomycin 18.7 ug/mL (20.0-40.0) L 09/12/22 03:59 Adenovirus (PCR) Not detected (NOT DETECT) 09/08/22 08:45 C. pneumoniae DNA (PCR) Not detected (NOT DETECT) 09/08/22 08:45 Coronavirus 229E (PCR) Not detected (NOT DETECT) 09/08/22 08:45 Hepatitis A IgM Ab Non-reactive (Nonreactive) 09/11/22 05:57 Hep Bs Antigen Non-reactive (Nonreactive) 09/11/22 05:57 Hep Bs Antibody 12.8 (11.5-1000) 09/11/22 05:57 Hep B Core Total Ab Non-reactive (Nonreactive) 09/11/22 05:57 Hepatitis C Antibody Non-reactive (Nonreactive) 09/11/22 05:57 Human Metapneumovir PCR Not detected (NOT DETECT) 09/08/22 08:45 Influenza A (H1) PCR Not detected (NOT DETECT) 09/08/22 08:45 Influenza A (H3) PCR Not detected (NOT DETECT) 09/08/22 08:45 Influenza Type A (PCR) Not detected (NOT DETECT) 09/08/22 08:45 Influenza Type B (PCR) Not detected (NOT DETECT) 09/08/22 08:45 M. pneumoniae (PCR) Not detected (NOT DETECT) 09/08/22 08:45 Parainfluenza 1 (PCR) Not detected (NOT DETECT) 09/08/22 08:45 Parainfluenza 2 (PCR) Not detected (NOT DETECT) 09/08/22 08:45 Parainfluenza 3 (PCR) Not detected (NOT DETECT) 09/08/22 08:45 Parainfluenza 4 (PCR) Not detected (NOT DETECT) 09/08/22 08:45 RSV Type A (PCR) Not detected (NOT DETECT) 09/08/22 08:45 RSV Type B (PCR) Not detected (NOT DETECT) 09/08/22 08:45 Entero/Rhino (PCR) Not detected (NOT DETECT) 09/08/22 08:45 SARS-CoV-2 (PCR) Not detected (NOT DETECT) 09/08/22 08:45 Micro: Microbiology 09/13/22 18:40 Gram Stain - Final Lung Left Lower Lobe Bronchoalveolar Lavage Culture - Preliminary A&P Assessment and plan (1) Acute respiratory failure with hypoxia and hypercapnia: (2) Obstructive sleep apnea: (3) Pneumonia: (4) Flash pulmonary edema: (5) Acute kidney injury: (6) ARDS (adult respiratory distress syndrome): Plan ASSESSMENT/PLAN:Overall: 42-year-old young female with past medical history of hypertension-noncompliant with her medications-initially comes with hypertensive emergency with flash pulmonary edema-treated with nicardipine drip-becomes hypotensive-started on pressors and antibiotics for presumed sepsis. She went into respiratory failure requiring mechanical ventilation support. She also developed BRIDGETTE requiring temporary hemodialysis. NEURO: #Sedation-currently on fentanyl and Versed gtt. -Adjust to maintain RASS -2 PULM: #Acute hypoxic and hypercapnic respiratory failure-probably there is a chronic component given her morbid obesity #?? Possible ARDS -Acute component secondary to flash pulmonary edema due to hypertensive emergency - -PEEP 10 FiO2 85% tidal volume 400,, respiratory rate 24, ABG is good-there is some component of metabolic acidosis -PEEP to 18 with an intention to counteract her chest wall resistance given her morbid obesity-her FiO2 gradually came down to 80% throughout the day -We will continue to monitor with serial ABG -She underwent CTA for increasing oxygen requirements-there was a lot of motion artifact and CT was nondiagnostic for pulmonary arteries. There is moderate cardiac enlargement and enlarged main pulmonary artery suggesting pulmonary hypertension. There was partial atelectasis of left upper lobe and complete atelectasis of both lower lobes. -She underwent bronchoscopic evaluation for airways 09/13/2022-there were thick mucus secretions in bilateral lower lobes which were suctioned-BAL neutrophils predominant-final cultures pending -She is on scheduled nebulization with DuoNeb as well as Pulmicort -Currently she is on Bumex 2 Mg Q8 over follow-up fluid overload-and temporary hemodialysis as per renal team -We will continue with awakening and breathing trials once FiO2 is down to 50% CVS: #Hypertensive emergency-treated with nicardipine drip-resolved #Circulatory shock-likely secondary to possible nicotine toxicity or demand ischemia due to underlying? Sepsis -Currently requiring Levophed 6 mcg/hour -Echocardiogram during admission showed normal LV size, systolic function with EF 60%. Grade 1 diastolic dysfunction. -Elevated BNP -We will continue with Bumex 2 Mg every 8 hours and and started on metolazone 5 Mg p.o. daily fluid removal through temporary hemodialysis -Continue close hemodynamic and cardiac monitoring GI: #Diet: TF nephro #GI prophylaxis: PPI #LFTs: elevated - monitor RENAL: #BRIDGETTE-most likely prerenal secondary to ischemic ATN due to hypotension/? Contrast-induced nephropathy -- Currently on daily hemodialysis for 3 hours as per renal team to achieve net negative fluid balance -Electrolytes and bicarb within normal limits -Adequate urine output -Currently on Bumex 2 Mg 3 times daily and added metolazone 5 Mg p.o. daily; temporary hemodialysis for fluid removal as per nephro team HEM: #Leukocytosis-improving #H&H stable #Normal platelets ENDO: #Significantly elevated TSH-suspect hypothyroidism-patient on levothyroxine 50 mcg q. p.o. daily-she may need to follow-up as outpatient #Normal blood sugars ID: #Presumably met sepsis criteria -Pulmonary infiltrates on imaging-with leukocytosis-and hypotension-there was a suspicion if it is all septic shock secondary to pneumonia; -However infiltrates can be explained with fluid overload, hypotension secondary to need Cardene drip -Patient procalcitonin is low -So far cultures are negative, and MRSA nares negative-final cultures pending -Discontinued vancomycin, completed 7 days of Zosyn -BAL neutrophil predominance-final cultures pending Code Status: Full code Disposition: ICU Critically ill: Yes MD discussed with: Hospitalist, RN, RT taking care of the patient ICU CHECKLIST: Problem list updated Verbal orders reviewed and signed Analgesia: Fentanyl Glycemic Control: N/A Nutrition: TF nephro Restraint Renewal (within 24 hrs): Yes Ulcer Prophylaxis: PPI Chemical Thromboprophylaxis: Prophylaxis: Heparin subcu Mechanical Thromboprophylaxis: SCDs Need for Central line: Yes for multiple medications Need for Cha catheter: Yes for urine output monitoring Attestations Medical Necessity Statement*: Acute hypoxic/hypercapnic respiratory failure secondary to fluid overload due to hypertensive emergency-requiring mechanical ventilation; will continue to monitor at least 48 hours in ICU Critical Care Time: This patient has a high probability of? clinically sig nificant, sudden o r life threatening deterioration of the patient's (jonathan rological/pulmonar y/cardiac/renal/ID /endocrine) system s required my full , direct attention , the highest leve l of physician pre paredness for urge nt intervention an d personal managem ent.? I managed/meade pervised life or o rgan supporting in terventions that r equired frequent p hysician assessmen t.? I devoted my f ull attention in t he ICU to the dire ct care of this pa tient for the kareen od of time indicat ed above.? Time I spent with family or surrogate(s) is included only if the patient was in capable of providi ng necessary infor mation or particip ating in decision making.? This annie e includes the [facility] services pr ovided: Telemetry review Mechanical Ventilation Hemod ynamic interpretat ion, assessment an d management Revie w and interpretati on of CXR Review a nd interpretation of lab values Revi ew and interpretat ion of microbiolog ic data and cultur e results Review o f medications and administration Rev iew and interpreta tion of Nutrition requirements and m anagement Discussi on of management w ith other consulta nts and services C linical update to family members [x ] Data and vital s ign review and int erpretation [x] Segun humphrey assessment, examination and in tervention [x] Doc umentation [x] Med ication orders and management Time spent for teaching as well as perfor aydin procedures ar e billed separatel y and is not inclu ded in this note ? Critical Care Annie e (min): 52 Procedures Arterial Line Size (Gauge): 20 Coding Level of Care Code Acute Code for Chg Fwd Diagnoses Acute respiratory failure with hypoxia and hypercapnia J96.01; J96.02 Obstructive sleep apnea G47.33 Pneumonia J18.9 Flash pulmonary edema J81.0 Acute kidney injury N17.9 ARDS (adult respiratory distress syndrome) J80 Time Spent (min) 52
--- NOTE | 2022-09-15 17:20 | P.PN_ITS ---
Subjective Subjective: No acute events overnight. Patient has remained on mechanical ventilation with PEEP of 18, tidal volume of 400, rate of 24 FiO2 of 85%. Appreciate morning's ABG. Patient underwent dialysis yesterday and 3 L of ultrafiltrate was done. Around 5.5 L liters of output including urine output and ultrafiltrated yesterday. Tmax 100.2 Fahrenheit. Seen multiple times in the day with family at bedside. Underwent an 1 more session of dialysis today with 3 L of ultrafiltrate. Patient tolerated well. Levophed has remained between 2-3. During the day ventilator settings have remained the same though slight improvement on PaO2 on ABG. Medications: Reviewed: Yes Vitals/I&O/Wt Last Vital Signs Temp 99.9 F H 09/15/22 13:09 Pulse 95 09/15/22 16:03 Resp 24 H 09/15/22 16:05 BP 130/66 09/15/22 13:09 Pulse Ox 91 09/15/22 16:05 O2 Del Method 09/15/22 16:03 O2 Flow Rate 6 09/08/22 09:00 FiO2 85 09/15/22 16:05 09/15/22 09/15/22 09/15/22 06:59 14:59 22:59 Intake Total 279.339 / 992.749 113.359 / 113.359 59.55 / 172.909 Output Total 375 / 4000 Balance -95.661 / -3007.251 113.359 / 113.359 59.55 / 172.909 Weight last 48 hrs Weight 181.487 kg Weight 183.1 kg Weight 186.381 kg Weight 189.6 kg Physical Exam Narrative: Intubated sedated on mechanical ventilation. Well sedated today Const: COMMON NORMALS: patient oriented x3 HENMT: COMMON NORMALS: normocephalic, atraumatic and hearing grossly normal bilaterally HEAD & SCALP: normocephalic and atraumatic Resp: COMMON NORMALS: clear to auscultation bilaterally AUSCULTATION: clear to auscultation bilaterally OTHER: Diminished air entry bilaterally mostly in the left lower lobe Cardio: COMMON NORMALS: regular rate, regular rhythm, S1 normal heart sound present, S2 normal heart sound present, No gallops present (Cardio), No murmurs present (Cardio), No rub (Cardio) and Peripheral pulses 2+ throughout RATE: regular rate RHYTHM: regular rhythm HEART SOUNDS: S1 normal heart sound present and S2 normal heart sound present PERIPHERAL PULSES: Peripheral pulses 2+ throughout GI: COMMON NORMALS: Normal to inspection, nondistended, normoactive bowel sounds present, Soft to palpation, non-tender, No hepatosplenomegaly present and no masses AUSCULTATION: Yes normoactive bowel sounds PALPATION: Yes Soft to palpation and Yes No hepatosplenomegaly present RECTAL EXAM: deferred Extremity: COMMON NORMALS: no clubbing, cyanosis or edema and no pedal edema Neuro: COMMON NORMALS: patient oriented x3 Skin: OTHER: Blister present in right dorsum of the hand secondary to infiltration earlier in the admission which has popped now. Urinary Catheter Management: Cha: Cath Placed During This Visit: yes Reason for Continuing Indwelling Catheter: Accurate Measurement of Urinary Output in Critically Ill Patients Urinary Catheter Date of Insertion: 09/08/22 Urinary Catheter Time of Insertion: 10:29 Data 09/15/22 02:38 09/15/22 02:38 Micro: Microbiology 09/13/22 18:40 Gram Stain - Final Lung Left Lower Lobe Bronchoalveolar Lavage Culture - Preliminary A&P Assessment and plan (1) ARDS (adult respiratory distress syndrome): (2) Shock: (3) Acute respiratory failure with hypoxia and hypercapnia: (4) Obstructive sleep apnea: (5) CHF (congestive heart failure): Qualifiers: Heart failure type: diastolic Heart failure chronicity: acute on chronic Qualified Code(s): I50.33 - Acute on chronic diastolic (congestive) heart failure (6) Dialysis patient: (7) Acute kidney injury: (8) S/P bronchoscopy with bronchoalveolar lavage: On 09/13. Encountered high mucus in left lower lobe. Follow cultures. Patient desaturated during procedures to high 70s and low 80s but otherwise tolerated procedure well. (9) Pneumonia: (10) Sepsis: (11) Flash pulmonary edema: (12) Hypertensive emergency: (13) Essential hypertension: Plan 42 year old female with known past medical history of hypertension noncompliant with antihypertensive medication, morbid obesity, was accepted as a direct transfer, she was initially admitted for the management of substernal chest pain, associated with acute onset of worsening shortness of breath. Assessment: ARDS: Hypoxic and hypercapnic respiratory failure: Currently intubated. Most likely in setting of decompensated congestive heart failure in setting of hypertensive emergency and acute kidney dysfunction in setting of obstructive sleep apnea and possible pneumonia. Patient's oxygen requirement worsening today. Continue with Bumex to 2 mg 3 times daily. Add metolazone 5 mg oral daily. Most likely patient will need daily dialysis for now with target net negative from around 7 to 8 L. Fluid restriction as much as possible. Not able to maintain fluid restriction given the amount of IV fluids patient is getting because of sedation and pressor support. Hold off on tube feeds for now to reduce fluid intake. Will request to continue with dialysis. Appreciate CTA results. Concern for fluid overload with possible mucous and left lower lobe for which she underwent bronchoscopy. Poor study for pulmonary embolism given movement artifacts. D-dimer 3.45. Repeat D-dimer. If still elevated can plan for heparin drip given continuation of requirement of high ventilator settings. Strict input output charting, daily weights. Echocardiogram done during hospitalization shows EF of 60% with grade 1 diastolic dysfunction. Patient will need an outpatient sleep study to quantify sleep apnea. Patient will most likely need to be extubated and discharged on BiPAP. BRIDGETTE : Slight metabolic acidosis today. Possibly secondary to ATN secondary to sepsis, in the setting of acute hypotension, versus possibly secondary to antihypertensive effects. Possible contrast-induced nephropathy as she has received a CTA recently, possible AIN Undergoing daily dialysis. Overall around 6 L negative after 4 sessions of daily dialysis. Continue daily dialysis for now. Bumex 2 mg every 8 hourly along with metolazone 5 mg daily. Appreciate nephrology recommendations. Continue daily dialysis. Given patient being ventilator dependent with difficult extubation given multiple comorbidities it would be best for patient to be as net negative as possible. Sepsis secondary to hospital-acquired pneumonia: Currently septic versus cardiogenic shock. Sepsis during admission which was ruled in with elevated white cell count, hypotensive, target organ dysfunction with increasing oxygen requirement and eventual intubation, need for vasopressor support, x-ray chest showing possible infiltrates. Wean Levophed while keeping mean arterial pressure over 65. Saturation over 92%. Continue with sedation with fentanyl and propofol for now. Sedation vacation in next 24 hours. Blood cultures so far negative. Bronc cultures negative. Urine Legionella, bacterial antigen negative. Urine culture benign. Sputum culture negative. MRSA swab negative. Vancomycin stopped on 09/11, Zosyn last dose on 09/14. Subclinical hypothyroidism: TSH still elevated. Free T4 levels below normal. Check cortisol levels. If suboptimal will plan for stress dose steroids and s witching from oral levothyroxine to IV. Hypertension with hypertensive emergency with flash pulmonary edema on admission: Resolved Blood pressure is better controlled. We will continue to monitor blood pressures and start treatment accordingly. Goal blood pressure less than 140/ 90 mmHg with mean over 65 Right upper extremity swelling: DVT ruled out. Does have blister on the dorsum of right hand due to infiltration of IV antibiotics. Continue to monitor. Sedation: Versed and fentanyl Glycemic control: Hypoglycemia protocol Nutrition: Hold off on tube feeds for now to restrict fluid intake. Was on goal of 60 cc/h. CODE STATUS: Discussed in detail with patient mother and who is the DPOA at bedside. Patient is full code. We discussed need for dialysis for quick improvement. Family verbalized understanding and are agreeable. PUD prophylaxis: Protonix DVT prophylaxis:Heparin 5000 SQ Q8h Discharge planning: We will plan on discharge to home versus SNF as per clinical improvement going forward once patient is extubated. Patient will need sleep study as an outpatient and possible discharge on BiPAP. Continue with care at ICU Had family discussion with patient's mother, and father at bedside. We discussed that unfortunately even after the maximum treatment including dialysis, high ventilator settings patient continues to require high oxygen supplementation which is most likely secondary to baseline severe and diagnosed obstructive sleep apnea, morbid obesity leading to restrictive lung disease, diastolic heart failure and severe acute kidney injury requiring dialysis which is restricting the treatment. We discussed given the severe obstructive sleep apnea it is being difficult to decrease the ventilator settings for the patient and currently patient is going into ARDS. We discussed what patient might benefit from would be proning and paralyzing but unfortunately given her body habitus it is impossible at our hospital to do proning as we do not have the beds required for proning in severely morbid obese patient. We also discussed that is difficult to transfer the patient as it is unsafe given the 100% FiO2 requirement currently. We discussed that we can go higher on the PEEP but that would put her at a higher risk of possible pneumothorax. Family verbalized understanding and understand the risks involved with the possibility of increasing the PEEP and given the limited options they are agreeable for the same. They are thankful for the care patient is receiving at the hospital. They understand that patient is critically sick and even if she improves there is a high chance that she will remain on a ventilator for some time going forward and might need to go to LTAC also if and when she improves. This documentation was created by [employer] vehicle trimmer software. Every effort was made to ensure accuracy of vehicle trimmer. Any obvious errors or omissions should be clarified with the author of the document. Attestations Medical Necessity Statement*: Requires further hospitalization for management of shock, ARDS as patient is ventilator dependent, acute kidney injury as patient remains dialysis dependent in young female with morbid obesity and possible severe undiagnosed obstructive sleep apnea Procedures Arterial Line Size (Gauge): 20 Coding Level of Care Code Critical Care >/= 30 minutes Critical care time (in minutes): 90 The high probability of a clinically significant, sudden or life threatening deterioration, as referenced in this documentation, required my full and direct attention, intervention and personal management. The critical care time shown is in addition to time spent performing any reported separately billable procedures and includes the following: [x] Data and vital sign review and interpretation [x ] Patient assessment, examination and intervention [x] Medication orders and management [x] Patient/Family updates as able [x] Care Coordination and Documentation. Other Coding Information This patient has a high probability of clinically significant, sudden or life threatening deterioration of the patient's (neurological/pulmonary/cardiac/renal/ID/endocrine) systems required my full, direct attention, the highest level of physician preparedness for urgent intervention and personal management. I managed/supervised life or organ supporting interventions that required frequent physician assessment. I devoted my full attention in the ICU to the direct care of this patient for the period of time indicated above. Time I spent with family or surrogate(s) is included only if the patient was incapable of providing necessary information or participating in decision making. This time includes the following services provided: Telemetry review Mechanical Ventilation Hemodynamic interpretation, assessment and management Review and interpretation of CXR Review and interpretation of lab values Review and interpretation of microbiologic data and culture results Review of medications and administration Review and interpretation of Nutrition requirements and management Discussion of management with other consultants and services Clinical update to family members Diagnoses ARDS (adult respiratory distress syndrome) J80 Shock R57.9 Acute respiratory failure with hypoxia and hypercapnia J96.01; J96.02 Obstructive sleep apnea G47.33 CHF (congestive heart failure) I50.33 Heart failure type: diastolic Heart failure chronicity: acute on chronic Dialysis patient Z99.2 Acute kidney injury N17.9 S/P bronchoscopy with bronchoalveolar lavage Z98.890 Pneumonia J18.9 Sepsis A41.9 Flash pulmonary edema J81.0 Hypertensive emergency I16.1 Essential hypertension I10
[2022-09-15] MEDS: acetaminophen 1,000 MG/100 ML PIGGYBACK 400 MG IV (17:32)
--- NOTE | 2022-09-15 18:08 | PC.NURSE ---
Uneventful shift. Patient has remained sedated and on the ventilator. Tolerated dialysis well with minimal support from levophed.
--- NOTE | 2022-09-15 18:10 | PC.NURSE ---
MAP has stayed at 65 this shift. Unable to pull ART line vitals from monitor.
[2022-09-15] MEDS: heparin, porcine 1,000 unit/mL INJ 10 mL 10000 UNIT INTRACATH (18:11)
[2022-09-15 18:17] LABS: Glucose Point of Care 99 mg/dL (70-110)
[2022-09-15 18:17] LABS: Glucose Point of Care 54 mg/dL (70-110)
[2022-09-15 18:58] LABS: D Dimer 3.78 ug/mIFEU (0-0.59)
[2022-09-15 19:42] LABS: Glucose Point of Care 104 mg/dL (70-110)
[2022-09-15] MEDS: artificial tears Op Oint 3.5 gm 1 APPLIC EYE-BOTH (21:39)
[2022-09-15] MEDS: silver sulfadiazine cream 1% 50 gm 1 APPLIC TOPICAL (21:40)
[2022-09-16] VITALS (97 sets, daily range): BP systolic 86–164; BP diastolic 43–85; PULSE 71–106; RESP 20–26; TEMP 36.9–38.5; O2SAT 89–97
[2022-09-16 00:08] LABS: Glucose Point of Care 99 mg/dL (70-110)
--- NOTE | 2022-09-16 00:26 | PM.PN ---
Subjective Subjective: remains on fio2 90% Medications: Reviewed: Yes Vitals/I&O/Wt Last Vital Signs Temp 100.0 F H 09/16/22 00:00 Pulse 104 H 09/16/22 00:00 Resp 26 H 09/16/22 00:00 BP 101/44 09/16/22 00:00 Pulse Ox 91 09/16/22 00:00 O2 Del Method 09/16/22 00:00 O2 Flow Rate 6 09/08/22 09:00 FiO2 85 09/16/22 00:00 09/15/22 09/15/22 09/16/22 14:59 22:59 06:59 Intake Total 113.359 / 113.359 735.402 / 848.761 122.137 / 970.898 Output Total 3300 / 3300 Balance 113.359 / 113.359 -2564.598 / -2451.239 122.137 / -2329.102 Weight last 48 hrs Weight 177.1 kg Weight 181.487 kg Weight 183.1 kg Weight 186.381 kg Physical Exam Narrative: Patient intubated, sedated, no acute distress Edema bilateral lower extremities Clear to auscultation per report Urinary Catheter Management: Cha: Cath Placed During This Visit: yes Reason for Continuing Indwelling Catheter: Accurate Measurement of Urinary Output in Critically Ill Patients Urinary Catheter Date of Insertion: 09/08/22 Urinary Catheter Time of Insertion: 10:29 Data 09/15/22 02:38 09/15/22 02:38 Micro: Microbiology 09/13/22 18:40 Gram Stain - Final Lung Left Lower Lobe Bronchoalveolar Lavage Culture - Preliminary A&P Assessment and plan (1) Acute kidney injury: Plan 1. Acute kidney injury. Different includes contrast nephropathy, sepsis, acute interstitial nephritis, hemodynamic. . Due to high O2 requirement and worsening renal function patient was started on HD. Would like to keep her on a negative fluid balance, plan for HD again today for 3 hours, baseline creatinine was normal prior to admission at 0.5. 2. Volume overload:HD as above 3. Primary respiratory acidosis, hypercapneic respiratory failure on ventilator, Recommend: , Follow Vanco level closely Attestations Medical Necessity Statement*: Requires further hospitalization for management of septic shock, hypoxic and hypercapnic respiratory failure and a ventilator dependent morbidly obese female with possibility of severe sleep apnea, acute kidney injury requiring hemodialysis Procedures Arterial Line Size (Gauge): 20 Coding Level of Care Code Acute Code for Chg Fwd Diagnoses Acute kidney injury N17.9
[2022-09-16] MEDS: bumetanide 0.25 mg/mL SDV 10 mL 2 MG IVP ×3 (02:09→17:48)
[2022-09-16] MEDS: heparin 5,000 unit/mL INJ 1 mL 5000 UNIT SUBCUT (02:10)
[2022-09-16] MEDS: acetylcysteine 200 mg/mL MDV 10 mL 100 MG INHALATION ×3 (03:04→11:05)
[2022-09-16] MEDS: ipratropium-albuterol 3 mL Neb INHALATION ×6 (03:04→23:15)
[2022-09-16 03:59] LABS: Glucose Point of Care 97 mg/dL (70-110)
[2022-09-16] MEDS: hydrocortisone 100 mg/2 mL SDV IVP ×4 (04:06→23:38)
[2022-09-16] MEDS: silver sulfadiazine cream 1% 50 gm 1 APPLIC TOPICAL ×2 (05:00→22:57)
[2022-09-16 06:10] LABS: Basophils % 0.4 %; Eosinophils % 0.1 %; Hematocrit 45.8 % (37.0-47.0); Hemoglobin 13.8 g/dL (11.5-15.3); Lymphocytes # 0.6 10^3/uL (0.8-4.8); Lymphocytes % 7.4 %; Mean Corpuscular HGB Conc 30.1 g/dL (30.0-36.0); Mean Corpuscular Hemoglobin 27.2 pg (28.0-34.0); Mean Corpuscular Volume 90.3 fl (81-99); Mean Platelet Volume 9.8 fL (7.4-10.4); Monocytes # 0.4 10^3/uL (0.2-0.9); Monocytes % 4.6 %; Neutrophils # 7.33 10^3/uL (1.8-7.7); Neutrophils % 86.6 %; Nucleated Red Blood Cells % 0 %; Platelet Count 200 10^3/cmm (130-400); Red Blood Count 5.07 10^6/uL (4.1-5.3); Red Cell Distribution Width 13.7 % (12.1-15.1); White Blood Count 8.5 10^3/uL (4.0-10.0)
[2022-09-16 06:35] LABS: Alanine Aminotransferase 27 U/L (0-33); Albumin Level 3.8 g/dL (3.5-5.2); Alkaline Phosphatase 75 U/L (35-105); Anion Gap 23.9 (5-19); Aspartate Amino Transferase 54 U/L (0-32); Blood Urea Nitrogen 37 mg/dL (6-20); Carbon Dioxide 21 mmol/L (22-29); Chloride 92 mmol/L (98-107); Globulin 3.8 g/dL (1.3-4.6); Glomerular Filtration Rate 9.7 mL/min (90-130); Glucose 107 mg/dL (65-115); Osmolality Calculated 283 mOsm/kg (285-295); Potassium 4.9 mmol/L (3.5-5.1); Sodium 132 mmol/L (136-145); Total Bilirubin 0.5 mg/dL (0.15-1.2); Total Protein 7.6 g/dL (6.6-8.7)
[2022-09-16] MEDS: budesonide 0.5 mg/2 mL Neb INHALATION ×2 (07:26→19:37)
[2022-09-16] MEDS: levothyroxine 100 mcg SDV 50 MCG IVP (08:01)
[2022-09-16] MEDS: metOLazone 5 MG Tablet PO (08:02)
[2022-09-16] MEDS: pantoprazole 40 mg SDV IVP (08:02)
[2022-09-16 08:03] LABS: ABG PCO2 50.8 mmHg (35-45); ABG PH Result 7.29 (7.35-7.45); Alveolar-Arterial Oxygen Gradi 58.5 mmHg (5-10); Arterial Blood Gas Hematocrit 42.6 % (37-47); Base Excess ABG -2.9 mmol/L (-2.0-2.0); Blood Gas Operator Identificat GD; Blood Gas Sample Site Not specified; Blood Gas Sample Type Arterial; HCO3 ABG 24.3 mmol/L (22-26); HGB O2 Sat 95.3 % (95-100); Ionized Calcium Level - ABG 1.3 mmol/L (1.1-1.4); Methemoglobin 0.9 % (0.4-1.5); Oxygen Device VENT; Oxygen Saturation ABG 97.2; PO2 ABG 87.7 mmHg (80.0-100.0); Potassium Level - ABG 4.7 mmol/L (3.5-5.0); Total Hemoglobin 13.9 g/dL (12-16)
[2022-09-16] MEDS: heparin drip 25,000 UNIT/500 ML PREMIX 36 UNIT IV ×2 (08:55→22:38)
[2022-09-16] MEDS: vancomycin 1,000 MG in sodium chloride 0.9% 250 ML 250 MG IV (11:13)
[2022-09-16 12:06] LABS: ABG PCO2 31.9 mmHg (35-45); ABG PH Result 7.36 (7.35-7.45); Alveolar-Arterial Oxygen Gradi 56.4 mmHg (5-10); Arterial Blood Gas Hematocrit 38.6 % (37-47); Base Excess ABG -6.5 mmol/L (-2.0-2.0); Blood Gas Operator Identificat GD; Blood Gas Sample Site Not specified; Blood Gas Sample Type Arterial; Blood Gas Tidal Volume 0.42; Carboxyhemoglobin 0.9 %THgb (0.4-20.1); HGB O2 Sat 97.7 % (95-100); Ionized Calcium Level - ABG 1.1 mmol/L (1.1-1.4); Oxygen Device VENT; Oxygen Saturation ABG 99.5; Potassium Level - ABG 3.2 mmol/L (3.5-5.0); Total Hemoglobin 12.6 g/dL (12-16)
[2022-09-16] MEDS: piperacillin-tazobactam 3.375 GM in sodium chloride 0.9% (plus) 50 ML IV (13:36)
--- NOTE | 2022-09-16 14:25 | PM.PN ---
Subjective Subjective: Patient seen at bedside She is still sedated and ventilated Patient had persistent hypoxemia requiring higher FiO2 and PEEP settings on ventilator despite hemodialysis-CTA was not conclusive with a lot of motion artifact-recommended to start IV heparin drip Heparin drip was started today and morning Overnight patient had fever spikes-blood cultures were sent and started on vancomycin and Zosyn Other labs and imaging reviewed Medications: Reviewed: Yes Medication Review Details: Generic Name Dose Route Start Last Admin Trade Name Freq PRN Reason Stop Dose Admin Acetaminophen 650 mg 09/06/22 10:41 09/07/22 04:50 Acetaminophen 32 5 Mg Tablet PO 650 mg Q6H PRN Administration Mild/Mod Pain Or Temp >/= 101 Albuterol/Ipratrop ium 3 ml 09/06/22 10:45 09/10/22 08:21 Ipratropium-Albu terol 3 Ml Neb INHALATION 3 ml Q6H.RESP PRN Administration SHORTNESS OF KVNG TH Chlorhexidine Gluc millie 1 applic 09/10/22 01:00 09/10/22 04:17 Chlorhexidine Gl uconate 4% Btl 118 Ml TOPICAL Not Given 0100 STERLING Heparin Sodium (Po rcine) 5,000 unit 09/06/22 10:45 09/10/22 11:01 Heparin 5,000 Un it/Ml Inj 1 Ml SUBCUT 5,000 unit Q8H STERL[place] Administration Norepinephrine Bit artrate 4 mg 254 mls @ 0 mls/h r 09/07/22 22:30 09/08/22 13:45 / Dextrose IV Infused .Q0M STER[place] Titration Protocol Per Protocol Norepinephrine Bit artrate 8 mg 508 mls @ 0 mls/h r 09/08/22 11:30 09/09/22 10:04 / Dextrose IV 0 mcg/min .Q0M STERLING 0 mls/hr Titration Protocol Per Protocol Propofol 1,000 mg in 100 m ls @ 0 mls/hr 09/09/22 03:45 09/10/22 08:33 Diprivan IV 30 mcg/kg/min .Q0M STER[place]ING 31.14 mls/hr Administration Protocol Per Protocol Fentanyl 2,500 mcg / Sodium 250 mls @ 0 mls/h r 09/09/22 04:45 09/09/22 13:56 Chloride IV 30 mcg/hr .Q0M STER[place]ING 3 mls/hr Titration Protocol Per Protocol Piperacillin Sod/T azobactam 50 mls @ 12.5 mls /hr 09/10/22 08:00 09/10/22 07:58 Sod 2.25 gm/ Sod ium Chloride IV 12.5 mls/hr Q8H [place] Administration Ondansetron HCl 4 mg 09/06/22 10:41 09/08/22 16:34 Ondansetron 2 Mg /Ml Sdv 2 Ml IVP 4 mg Q8H PRN Administration vomiting, or N/V if npo Vitals/I&O/Wt Last Vital Signs Temp 101.3 F H 09/16/22 07:15 Pulse 86 09/16/22 11:09 Resp 24 H 09/16/22 11:08 BP 119/59 09/16/22 10:30 Pulse Ox 93 09/16/22 11:08 O2 Del Method 09/16/22 11:00 O2 Flow Rate 6 09/08/22 09:00 FiO2 75 09/16/22 12:36 09/15/22 09/16/22 09/16/22 22:59 06:59 14:59 Intake Total 735.402 / 848.761 257.228 / 1105.989 202.958 / 202.958 Output Total 3300 / 3300 350 / 3650 Balance -2564.598 / -2451.239 -92.772 / -2544.011 202.958 / 202.958 Weight last 48 hrs Weight 379 lb 3.121 oz Weight 397 lb 1.76 oz Weight 390 lb 7.018 oz Weight 400 lb 1.76 oz Weight 403 lb 10.662 oz Physical Exam Narrative: PHYSICAL EXAM: General: Morbidly obese, young female, lying in bed, sedated and intubated. HEENT:NCAT, PERRLA, EOMI Neck: Supple Lungs: Bilateral diffuse crackles Heart: s1/s2, RRR Abd: soft, NT, ND, BS + Normoactive Extremities: No edema, right forearm infiltrated DELI/BAKERY ASSOCIATE: sedated and limited DELI/BAKERY ASSOCIATE exam possible. SKIN: no rash LDA: # HD Cath : Right IJ 09/11/2022 # A line: 09/08/2022 left radial artery #CVC: Right femoral line 09/08/2022 Urinary Catheter Management: Cha: Cath Placed During This Visit: yes Reason for Continuing Indwelling Catheter: Accurate Measurement of Urinary Output in Critically Ill Patients Urinary Catheter Date of Insertion: 09/08/22 Urinary Catheter Time of Insertion: 10:29 Data 09/16/22 05:36 09/16/22 05:36 Other Labs: Radiology Impressions Duplex Scan Upper Extremity Artery 09/08/22 20:22 IMPRESSION: 1. No evidence for major vessel occlusion or significant stenosis. 2. Other details discussed above. Venous Duplex 09/08/22 20:31 IMPRESSION: No evidence of acute right upper extremity DVT. Renal Ultrasound 09/09/22 05:33 IMPRESSION: 1. No hydronephrosis of either kidney. 2. Technologist notes somewhat limited evaluation of the kidneys, due to patient condition and body habitus. 3. Other details discussed above. Chest CTA 09/13/22 10:26 IMPRESSION: 1. Very limited exam due to artifact from CT bore contact. 2. Nondiagnostic evaluation of the pulmonary arteries. 3. Complete atelectasis of both lower lobes and partial atelectasis of the left upper lobe. 4. Cardiac enlargement. 5. Enlarged main pulmonary artery suggests pulmonary hypertension. 6. Lexus hepatis and gastrohepatic ligament lymphadenopathy is partially imaged. Recommend follow-up abdomen pelvis CT. 7. Satisfactory position of lines and tubes. Chest X-Ray 09/15/22 07:04 IMPRESSION: Unchanged pulmonary vascular congestion compared with previous Laboratory Results WBC 8.5 10^3/uL (4.0-10.0) 09/16/22 05:36 RBC 5.07 10^6/uL (4.1-5.3) 09/16/22 05:36 Hgb 13.8 g/dL (11.5-15.3) 09/16/22 05:36 Hct 45.8 % (37.0-47.0) 09/16/22 05:36 MCV 90.3 fl (81-99) 09/16/22 05:36 MCH 27.2 pg (28.0-34.0) L 09/16/22 05:36 MCHC 30.1 g/dL (30.0-36.0) 09/16/22 05:36 RDW 13.7 % (12.1-15.1) 09/16/22 05:36 Plt Count 200 10^3/cmm (130-400) 09/16/22 05:36 MPV 9.8 fL (7.4-10.4) 09/16/22 05:36 Neut % (Auto) 86.6 % 09/16/22 05:36 Lymph % (Auto) 7.4 % 09/16/22 05:36 [place] % (Auto) 4.6 % 09/16/22 05:36 Eos % (Auto) 0.1 % 09/16/22 05:36 Baso % (Auto) 0.4 % 09/16/22 05:36 Neut # (Auto) 7.33 10^3/uL (1.8-7.7) 09/16/22 05:36 Lymph # (Auto) 0.6 10^3/uL (0.8-4.8) L 09/16/22 05:36 [place] # (Auto) 0.4 10^3/uL (0.2-0.9) 09/16/22 05:36 Eos # (Auto) 0.0 10^3/uL (0.0-0.8) 09/16/22 05:36 Baso # (Auto) 0.0 10^3/uL (0.0-0.1) 09/16/22 05:36 Nucleated RBC % (auto) 0 % 09/16/22 05:36 Nucleated RBCs # 0.0 /100WBC 09/16/22 05:36 APTT 37.3 SECONDS (23.9-36.7) H 09/16/22 14:30 D-Dimer 3.78 ug/mIFEU (0-0.59) H 09/15/22 17:57 Specimen Type Arterial 09/16/22 11:50 Sample Site Not specified 09/16/22 11:50 ABG pH 7.36 (7.35-7.45) 09/16/22 11:50 ABG pCO2 31.9 mmHg (35-45) L 09/16/22 11:50 ABG pO2 125.0 mmHg (80.0-100.0) H 09/16/22 11:50 ABG HCO3 18.0 mmol/L (22-26) L 09/16/22 11:50 ABG O2 Saturation 99.5 09/16/22 11:50 ABG Base Excess -6.5 mmol/L (-2.0-2.0) L 09/16/22 11:50 [place] Test N/a 09/16/22 11:50 A-a O2 Gradient 56.4 mmHg (5-10) H 09/16/22 11:50 Hematocrit 38.6 % (37-47) 09/16/22 11:50 Hgb O2 Saturation 97.7 % (95-100) 09/16/22 11:50 Carboxyhemoglobin 0.9 %THgb (0.4-20.1) 09/16/22 11:50 Methemoglobin 1.0 % (0.4-1.5) 09/16/22 11:50 Total Hemoglobin 12.6 g/dL (12-16) 09/16/22 11:50 Sodium 140.0 mmol/L (131-143) 09/16/22 11:50 Potassium 3.2 mmol/L (3.5-5.0) L 09/16/22 11:50 Glucose 77.0 mg/dL (70-115) 09/16/22 11:50 Ionized Calcium 1.1 mmol/L (1.1-1.4) 09/16/22 11:50 O2 Delivery Device Vent 09/16/22 11:50 O2 Liters/Min 7.0 % 09/08/22 15:57 FiO2 85.0 % 09/16/22 11:50 Tidal Volume 0.42 09/16/22 11:50 PEEP 18.0 cmH20 09/16/22 11:50 Senior Automation Engineer ID [id number] 09/16/22 11:50 Sodium 132 mmol/L (136-145) L 09/16/22 05:36 Potassium 4.9 mmol/L (3.5-5.1) 09/16/22 05:36 Chloride 92 mmol/L (98-107) L 09/16/22 05:36 Carbon Dioxide 21 mmol/L (22-29) L 09/16/22 05:36 Anion Gap 23.9 (5-19) H 09/16/22 05:36 BUN 37 mg/dL (6-20) H 09/16/22 05:36 Creatinine 4.9 mg/dL (0.5-0.9) H 09/16/22 05:36 GFR Calculation 9.7 mL/min (90-130) L 09/16/22 05:36 Glucose 107 mg/dL (65-115) 09/16/22 05:36 POC Glucose 111 mg/dL (70-110) H 09/16/22 19:30 Estimat Average Glucose 114 09/12/22 03:59 Hemoglobin A1c 5.6 % (4.0-6.0) 09/12/22 03:59 Calculated Osmolality 283 mOsm/kg (285-295) L 09/16/22 05:36 Lactic Acid 1.6 mmol/L (0.5-2.2) 09/08/22 09:06 Calcium 10.0 mg/dL (8.5-10.5) 09/16/22 05:36 Phosphorus 5.9 mg/dL (2.5-4.5) H 09/11/22 05:57 Magnesium 2.1 mg/dL (1.7-2.3) 09/07/22 04:38 Iron 46 ug/dL (37-145) 09/11/22 05:57 TIBC 271 mcg/dl 09/11/22 05:57 % Saturation 16.9 % (20-50) L 09/11/22 05:57 Unsat Iron Binding 225 ug/dL (112-347) 09/11/22 05:57 Total Bilirubin 0.5 mg/dL (0.15-1.2) 09/16/22 05:36 AST 54 U/L (0-32) H 09/16/22 05:36 ALT 27 U/L (0-33) 09/16/22 05:36 Alkaline Phosphatase 75 U/L (35-105) 09/16/22 05:36 Creatine Kinase 225 U/L (26-192) H 09/10/22 03:30 CK-MB (CK-2) 14.9 ng/mL (0-5.34) H 09/10/22 03:30 CK-MB (CK-2) Rel Index 6.6 % (0.0-10.4) 09/10/22 03:30 NT-Pro-B Natriuret Pep 1494 pg/mL (0-125) H 09/11/22 05:57 Total Protein 7.6 g/dL (6.6-8.7) 09/16/22 05:36 Albumin 3.8 g/dL (3.5-5.2) 09/16/22 05:36 Globulin 3.8 g/dL (1.3-4.6) 09/16/22 05:36 Triglycerides 313 mg/dL (0-150) H 09/12/22 03:59 Cholesterol 140 mg/dL (0-200) 09/12/22 03:59 LDL Cholesterol, Calc 49 mg/dL (50-129) L 09/12/22 03:59 Total VLDL Cholesterol 63 mg/dL (0-30) H 09/12/22 03:59 HDL Cholesterol 28 mg/dL (60-100) L 09/12/22 03:59 Cholesterol/HDL Ratio 5.00 mg/dL (0.0-4.40) H 09/12/22 03:59 Vitamin B12 514 pg/mL (232-1245) 09/11/22 05:57 Folate 8.9 ng/mL (4.8-37.3) 09/11/22 05:57 Procalcitonin 0.35 ng/mL (0-0.5) 09/08/22 09:06 TSH 18.45 uIU/mL (0.27-4.20) H 09/15/22 02:38 Free T4 0.60 ng/dL (0.82-1.77) L 09/15/22 02:38 Free T3 2.2 PG/ML (2.0-4.4) 09/11/22 05:57 Random Cortisol 2.67 ug/dL (2.47-19.5) 09/15/22 02:38 Urine Color Straw (Yellow) 09/10/22 12:30 Urine Appearance Clear (CLEAR) 09/10/22 12:30 Urine pH 5 (5-7) 09/10/22 12:30 Ur Specific [place] 1.005 (1.005-1.030) 09/10/22 12:30 Urine Protein Neg (Negative) 09/10/22 12:30 Urine Glucose (UA) Norm (Normal) 09/10/22 12:30 Urine Ketones Negative (Negative) 09/10/22 12:30 Urine Blood 3+ (Negative) H 09/10/22 12:30 Urine Nitrate Negative (Negative) 09/10/22 12:30 Urine Bilirubin Neg (Negative) 09/10/22 12:30 Urine Urobilinogen Norm mg/dL (Negative) 09/10/22 12:30 Ur Leukocyte Esterase 2+ (Negative) H 09/10/22 12:30 Urine RBC 15-25 /hpf (0-2) H 09/10/22 12:30 Urine WBC 25-40 /hpf (0-5) H 09/10/22 12:30 Ur Squamous Epith Cells 5-10 /hpf (0-5) H 09/10/22 12:30 Ur Transition Epith Cell 0-4 /hpf 09/10/22 12:30 Amorphous Sediment Not Reportable 09/10/22 12:30 Urine Bacteria 1+ /hpf (NONE) H 09/10/22 12:30 Ur Random Sodium 93 mmol/L 09/09/22 01:10 Urine Creatinine 51 mg/dL (28-217) 09/09/22 01:10 Nasal Influ A H1 2008 PCR Not detected (NOT DETECT) 09/08/22 08:45 Bronch Specimen Source Left lower lobe 09/13/22 18:40 Bronchial Fluid Color Red 09/13/22 18:40 Bronchial Fluid Appearance Bloody (CLEAR) 09/13/22 18:40 Bronchial Fluid WBC 1361 /uL 09/13/22 18:40 Bronchial Fluid RBC 900 10^3/uL 09/13/22 18:40 Bronch Cells Counted 200 09/13/22 18:40 Bronchial Neutrophils 72.00 % (0.9-2.3) H 09/13/22 18:40 Bronchial Lymphocytes 26.00 % (10.71-12.91) H 09/13/22 18:40 Bronchial Eosinophils 1.00 % (0.13-0.25) H 09/13/22 18:40 Bronchial Macrophages 1.00 % (83.6-86.8) L 09/13/22 18:40 Bronchial Diff Comment Yes 09/13/22 18:40 Random Vancomycin 18.7 ug/mL (20.0-40.0) L 09/12/22 03:59 Adenovirus (PCR) Not detected (NOT DETECT) 09/08/22 08:45 C. pneumoniae DNA (PCR) Not detected (NOT DETECT) 09/08/22 08:45 Coronavirus 229E (PCR) Not detected (NOT DETECT) 09/08/22 08:45 Hepatitis A IgM Ab Non-reactive (Nonreactive) 09/11/22 05:57 Hep Bs Antigen Non-reactive (Nonreactive) 09/11/22 05:57 Hep Bs Antibody 12.8 (11.5-1000) 09/11/22 05:57 Hep B Core Total Ab Non-reactive (Nonreactive) 09/11/22 05:57 Hepatitis C Antibody Non-reactive (Nonreactive) 09/11/22 05:57 Human Metapneumovir PCR Not detected (NOT DETECT) 09/08/22 08:45 Influenza A (H1) PCR Not detected (NOT DETECT) 09/08/22 08:45 Influenza A (H3) PCR Not detected (NOT DETECT) 09/08/22 08:45 Influenza Type A (PCR) Not detected (NOT DETECT) 09/08/22 08:45 Influenza Type B (PCR) Not detected (NOT DETECT) 09/08/22 08:45 M. pneumoniae (PCR) Not detected (NOT DETECT) 09/08/22 08:45 Parainfluenza 1 (PCR) Not detected (NOT DETECT) 09/08/22 08:45 Parainfluenza 2 (PCR) Not detected (NOT DETECT) 09/08/22 08:45 Parainfluenza 3 (PCR) Not detected (NOT DETECT) 09/08/22 08:45 Parainfluenza 4 (PCR) Not detected (NOT DETECT) 09/08/22 08:45 RSV Type A (PCR) Not detected (NOT DETECT) 09/08/22 08:45 RSV Type B (PCR) Not detected (NOT DETECT) 09/08/22 08:45 Entero/Rhino (PCR) Not detected (NOT DETECT) 09/08/22 08:45 SARS-CoV-2 (PCR) Not detected (NOT DETECT) 09/08/22 08:45 Micro: Microbiology 09/16/22 13:27 Blood Culture - Preliminary Blood SPECIMEN COLLECTED 09/13/22 18:40 Gram Stain - Final Lung Left Lower Lobe Bronchoalveolar Lavage Culture - Preliminary A&P Assessment and plan (1) Acute respiratory failure with hypoxia and hypercapnia: (2) Obstructive sleep apnea: (3) Pneumonia: (4) Flash pulmonary edema: (5) Acute kidney injury: (6) ARDS (adult respiratory distress syndrome): Plan ASSESSMENT/PLAN:Overall: 42-year-old young female with past medical history of hypertension-noncompliant with her medications-initially comes with hypertensive emergency with flash pulmonary edema-treated with nicardipine drip-becomes hypotensive-started on pressors and antibiotics for presumed sepsis. She went into respiratory failure requiring mechanical ventilation support. She also developed BRIDGETTE requiring temporary hemodialysis. NEURO: #Sedation-currently on fentanyl and Versed gtt. -Adjust to maintain RASS -2 PULM: #Acute hypoxic and hypercapnic respiratory failure-probably there is a chronic component given her morbid obesity #?? Possible ARDS -Acute component secondary to flash pulmonary edema due to hypertensive emergency - -PEEP to 18 with an intention to counteract her chest wall resistance given her morbid obesity-her FiO2 gradually came down to 70% throughout the day -We will continue to monitor with serial ABG -She underwent CTA for increasing oxygen requirements-there was a lot of motion artifact and CT was nondiagnostic for pulmonary arteries. There is moderate cardiac enlargement and enlarged main pulmonary artery suggesting pulmonary hypertension. There was partial atelectasis of left upper lobe and complete atelectasis of both lower lobes. -Recommended to start IV heparin as patient had persistent hypoxemia -She underwent bronchoscopic evaluation for airways 09/13/2022-there were thick mucus secretions in bilateral lower lobes which were suctioned-BAL neutrophils predominant-final cultures negative -She is on scheduled nebulization with DuoNeb as well as Pulmicort -Currently she is on Bumex 2 Mg Q8 over follow-up fluid overload-and temporary hemodialysis as per renal team -We will continue with awakening and breathing trials once FiO2 is down to 50% CVS: #Hypertensive emergency-treated with nicardipine drip-resolved #Circulatory shock-likely secondary to possible nicotine toxicity or demand ischemia due to underlying? Sepsis -Currently requiring Levophed 6 mcg/hour -Echocardiogram during admission showed normal LV size, systolic function with EF 60%. Grade 1 diastolic dysfunction. -Elevated BNP -We will continue with Bumex 2 Mg every 8 hours and and started on metolazone 5 Mg p.o. daily fluid removal through temporary hemodialysis -Continue close hemodynamic and cardiac monitoring GI: #Diet: TF nephro #GI prophylaxis: PPI #LFTs: elevated - monitor RENAL: #BRIDGETTE-most likely prerenal secondary to ischemic ATN due to hypotension/? Contrast-induced nephropathy -- Currently on daily hemodialysis for 3 hours as per renal team to achieve net negative fluid balance -Electrolytes and bicarb within normal limits -Adequate urine output -Currently on Bumex 2 Mg 3 times daily and added metolazone 5 Mg p.o. daily; temporary hemodialysis for fluid removal as per nephro team HEM: #Leukocytosis-improving #H&H stable #Normal platelets ENDO: #Significantly elevated TSH-suspect hypothyroidism-patient on levothyroxine 50 mcg q. p.o. daily-she may need to follow-up as outpatient #Normal blood sugars #Possible underlying adrenal insufficienY -started on stress dose steroids ID: #Presumably met sepsis criteria #Persistent temperature spikes- -Pulmonary infiltrates on imaging-with leukocytosis-and hypotension-there was a suspicion if it is all septic shock secondary to pneumonia; -However infiltrates can be explained with fluid overload, hypotension secondary to need Cardene drip -Patient procalcitonin is low -Repeat blood cultures sent today 09/16/22 - -Start her back on vancomycin and Zosyn -BAL neutrophil predominance-final cultures negative Code Status: Full code Disposition: ICU Critically ill: Yes MD discussed with: Hospitalist, RN, RT taking care of the patient ICU CHECKLIST: Problem list updated Verbal orders reviewed and signed Analgesia: Fentanyl Glycemic Control: N/A Nutrition: TF nephro Restraint Renewal (within 24 hrs): Yes Ulcer Prophylaxis: PPI Chemical Thromboprophylaxis: Prophylaxis: Heparin Mechanical Thromboprophylaxis: SCDs Need for Central line: Yes for multiple medications Need for Cha catheter: Yes for urine output monitoring Attestations Medical Necessity Statement*: Acute hypoxic/hypercapnic respiratory failure secondary to fluid overload due to hypertensive emergency-requiring mechanical ventilation; will continue to monitor at least 48 hours in ICU Critical Care Time: This patient has a high probability of? clinically sig nificant, sudden o r life threatening deterioration of the patient's (jonathan rological/pulmonar y/cardiac/renal/ID /endocrine) system s required my full , direct attention , the highest leve l of physician pre paredness for urge nt intervention an d personal managem ent.? I managed/meade pervised life or o rgan supporting in terventions that r equired frequent p hysician assessmen t.? I devoted my f ull attention in t he ICU to the dire ct care of this pa tient for the kareen od of time indicat ed above.? Time I spent with family or surrogate(s) is included only if the patient was in capable of providi ng necessary infor mation or particip ating in decision making.? This annie e includes the fol lowing services pr ovided: Telemetry review Mechanical Ventilation Hemod ynamic interpretat ion, assessment an d management Revie w and interpretati on of CXR Review a nd interpretation of lab values Revi ew and interpretat ion of microbiolog ic data and cultur e results Review o f medications and administration Rev iew and interpreta tion of Nutrition requirements and m anagement Discussi on of management w ith other consulta nts and services C linical update to family members [x ] Data and vital s ign review and int erpretation [x] Pa kam assessment, examination and in tervention [x] Doc umentation [x] Med ication orders and management Time spent for teaching as well as perfor aydin procedures ar e billed separatel y and is not inclu ded in this note ? Critical Care Annie e (min): 52 Procedures Arterial Line Size (Gauge): 20 Coding Level of Care Code Critical Care >/= 30 minutes Diagnoses Acute respiratory failure with hypoxia and hypercapnia J96.01; J96.02 Obstructive sleep apnea G47.33 Pneumonia J18.9 Flash pulmonary edema J81.0 Acute kidney injury N17.9 ARDS (adult respiratory distress syndrome) J80 Time Spent (min) 55
[2022-09-16 15:43] LABS: Partial Thromboplastin Time 37.3 SECONDS (23.9-36.7)
[2022-09-16] MEDS: heparin 5,000 unit/mL INJ 1 mL IV ×2 (16:38→23:00)
--- NOTE | 2022-09-16 17:43 | P.PN_ITS ---
Subjective Subjective: Seen multiple times during the day. As per the nurse patient did have episode of hypoxia overnight while turning. Not documented below. Multiple other settings change during the day. Today morning seen with family at bedside. Patient waking up elevated on examination today. Not following commands. Ventilator setting with PEEP of 18 coming down to 16 during the day, tidal volume increasing from 400-4 20, FiO2 coming down to 70% from 85%, Levophed of 1, fentanyl of 200 with Versed of 5, net 8.5 L negative whereas in last 24 hours patient is around 2.5 L negative with ultrafiltrate of 3 L in last 24 hours on dialysis yesterday. Tmax of 101.3 Fahrenheit. Vitals/I&O/Wt Last Vital Signs Temp 101.3 F H 09/16/22 07:15 Pulse 90 09/16/22 15:08 Resp 22 H 09/16/22 17:22 BP 92/58 09/16/22 16:00 Pulse Ox 95 09/16/22 17:22 O2 Del Method 09/16/22 15:01 O2 Flow Rate 6 09/08/22 09:00 FiO2 70 09/16/22 17:22 09/16/22 09/16/22 09/16/22 06:59 14:59 22:59 Intake Total 257.228 / 1105.989 202.958 / 202.958 Output Total 350 / 3650 Balance -92.772 / -2544.011 202.958 / 202.958 Weight last 48 hrs Weight 172 kg Weight 180.126 kg Weight 177.1 kg Weight 181.487 kg Physical Exam Narrative: Intubated sedated on mechanical ventilation. Well sedated today Const: COMMON NORMALS: patient oriented x3 HENMT: COMMON NORMALS: normocephalic, atraumatic and hearing grossly normal bilaterally HEAD & SCALP: normocephalic and atraumatic Resp: COMMON NORMALS: clear to auscultation bilaterally AUSCULTATION: clear to auscultation bilaterally OTHER: Diminished air entry bilaterally mostly in the left lower lobe Cardio: COMMON NORMALS: regular rate, regular rhythm, S1 normal heart sound present, S2 normal heart sound present, No gallops present (Cardio), No murmurs present (Cardio), No rub (Cardio) and Peripheral pulses 2+ throughout RATE: regular rate RHYTHM: regular rhythm HEART SOUNDS: S1 normal heart sound present and S2 normal heart sound present PERIPHERAL PULSES: Peripheral pulses 2+ throughout GI: COMMON NORMALS: Normal to inspection, nondistended, normoactive bowel melody nds present, Soft to palpation, non-tender, No hepatosplenomegaly present and no masses AUSCULTATION: Yes normoactive bowel sounds PALPATION: Yes Soft to palpation and Yes No hepatosplenomegaly present RECTAL EXAM: deferred Extremity: COMMON NORMALS: no clubbing, cyanosis or edema and no pedal edema Neuro: COMMON NORMALS: patient oriented x3 Skin: OTHER: Blister present in right dorsum of the hand secondary to infiltration earlier in the admission which has popped now. Urinary Catheter Management: Cha: Cath Placed During This Visit: yes Reason for Continuing Indwelling Catheter: Accurate Measurement of Urinary Output in Critically Ill Patients Urinary Catheter Date of Insertion: 09/08/22 Urinary Catheter Time of Insertion: 10:29 Data 09/16/22 05:36 09/16/22 05:36 Micro: Microbiology 09/13/22 18:40 Gram Stain - Final Lung Left Lower Lobe Bronchoalveolar Lavage Culture - Final 09/16/22 13:27 Blood Culture - Preliminary Blood SPECIMEN COLLECTED A&P Assessment and plan (1) ARDS (adult respiratory distress syndrome): (2) Shock: (3) Acute respiratory failure with hypoxia and hypercapnia: (4) Obstructive sleep apnea: (5) CHF (congestive heart failure): Qualifiers: Heart failure chronicity: acute on chronic Heart failure type: diastolic Qualified Code(s): I50.33 - Acute on chronic diastolic (congestive) heart failure (6) Dialysis patient: (7) Acute kidney injury: (8) S/P bronchoscopy with bronchoalveolar lavage: On 09/13. Encountered high mucus in left lower lobe. Follow cultures. Patient desaturated during procedures to high 70s and low 80s but otherwise tolerated procedure well. (9) Pneumonia: (10) Sepsis: (11) Flash pulmonary edema: (12) Hypertensive emergency: (13) Essential hypertension: (14) Fever: Plan 42 year old female with known past medical history of hypertension noncompliant with antihypertensive medication, morbid obesity, was accepted as a direct transfer, she was initially admitted for the management of substernal chest bandar n, associated with acute onset of worsening shortness of breath. Assessment: ARDS: Hypoxic and hypercapnic respiratory failure: Currently intubated. Most likely in setting of decompensated congestive heart failure in setting of hypertensive emergency and acute kidney dysfunction in setting of obstructive sleep apnea and possible pneumonia. Multiple ventilator settings been changed during the day as patient is difficult to ventilate given severe morbid obesity and possible obstructive sleep apnea. Increasing tidal volume slightly today to 420 after which oxygenation improved and coming down on FiO2 and PEEP. We will continue to monitor. Plan for repeat ABG in AM. Continue with Bumex to 2 mg 3 times daily. Stop metolazone 5 mg oral daily. Patient getting more negative every day with dialysis now. Negative around 8.5 L today. If oxygenation continues to improve can plan for possible weaning trial in next 24 to 48 hours. Most likely patient will need daily dialysis for now with target net negative from around 7 to 8 L. Fluid restriction as much as possible. Not able to maintain fluid restriction given the amount of IV fluids patient is getting because of sedation and pressor support. Hold off on tube feeds for now to reduce fluid intake. Will request to continue with dialysis. Appreciate CTA results. Concern for fluid overload with possible mucous and left lower lobe for which she underwent bronchoscopy. Poor study for pulmonary embolism given movement artifacts. Repeat D-dimer still elevated and given patient requiring high oxygen supplementation even after maximum treatment for now we will start patient on heparin drip while monitoring for drop in hemoglobin. Monitor daily weights. Echocardiogram done during hospitalization shows EF of 60% with grade 1 diastolic dysfunction. Patient will need an outpatient sleep study to quantify sleep apnea. Patient will most likely need to be extubated and discharged on BiPAP. Fever: New fevers in last 24 hours going up to 101.3 Fahrenheit. Antibiotics recently stopped. Repeat blood cultures. Multiple lines all done within the last 1 week. Repeat urinalysis. For now empirically start patient on vancomycin and Zosyn. Previously blood cultures so far negative. Bronc cultures negative. Urine Legionella, bacterial antigen negative. Urine culture benign. Sputum culture negative. MRSA swab negative. Vancomycin stopped on 09/11, Zosyn last dose on 09/14. BRIDGETTE : Slight metabolic acidosis today. Possibly secondary to ATN secondary to sepsis, in the setting of acute hypo tension, versus possibly secondary to antihypertensive effects. Possible c ontrast-induced nephropathy as she has received a CTA recently, possible AIN Undergoing daily dialysis. Overall around 6 L negative after 4 sessions of daily dialysis. Continue daily dialysis for now. Bumex 2 mg every 8 hourly. Appreciate nephrology recommendations. Continue daily dialysis. Given patient being ventilator dependent with difficult extubation given multiple comorbidities it would be best for patient to be as net negative as possible. Sepsis secondary to hospital-acquired pneumonia: Currently septic versus cardiogenic shock. Sepsis during admission which was ruled in with elevated white cell count, hypotensive, target organ dysfunction with increasing oxygen requirement and eventual intubation, need for vasopressor support, x-ray chest showing possible infiltrates. Wean Levophed while keeping mean arterial pressure over 65. Saturation over 92%. Continue with sedation with fentanyl and Versed for now. Subclinical hypothyroidism: TSH still elevated. Free T4 levels below normal. Check cortisol were suboptimally normal. Patient started on stress dose steroids with hydrocortisone 100 mg every 6 hourly. Will monitor response and plan to wean gradually. Monitor blood sugars. Hypertension with hypertensive emergency with flash pulmonary edema on admission: Resolved Blood pressure is better controlled. We will continue to monitor blood pressures and start treatment accordingly. Goal blood pressure less than 140/ 90 mmHg with mean over 65 Right upper extremity swelling: DVT ruled out. Does have blister on the dorsum of right hand due to infiltration of IV antibiotics. Continue to monitor. Sedation: Versed and fentanyl Glycemic control: Hypoglycemia protocol Nutrition: Hold off on tube feeds for now to restrict fluid intake. Was on goal of 60 cc/h. CODE STATUS: Discussed in detail with patient mother and who is the DPOA at bedside. Patient is full code. We discussed need for dialysis for quick improvement. Family verbalized understanding and are agreeable. PUD prophylaxis: Protonix DVT prophylaxis:Heparin 5000 SQ Q8h Discharge planning: We will plan on discharge to home versus SNF as per clinical improvement going forward once patient is extubated. Patient will need sleep study as an outpatient and possible discharge on BiPAP. Continue with care at ICU Had family discussion with patient's mother, and father at bedside. We discussed that unfortunately even after the maximum treatment including dialysis, high ventilator settings patient continues to require high oxygen supplementation which is most likely secondary to baseline severe and diagnosed obstructive sleep apnea, morbid obesity leading to restrictive lung disease, diastolic heart failure and severe acute kidney injury requiring dialysis which is restricting the treatment. We discussed given the severe obstructive sleep apnea it is being difficult to decrease the ventilator settings for the patient and currently patient is going into ARDS. We discussed what patient might benefit from would be proning and paralyzing but unfortunately given her body habitus it is impossible at our hospital to do proning as we do not have the beds required for proning in severely morbid obese patient. We also discussed that is difficult to transfer the patient as it is unsafe given the 100% FiO2 requirement currently. We discussed that we can go higher on the PEEP but that would put her at a higher risk of possible pneumothorax. Family verbalized understanding and understand the risks involved with the possibility of increasing the PEEP and given the limited options they are agreeable for the same. They are thankful for the care patient is receiving at the hospital. They understand that patient is critically sick and even if she improves there is a high chance that she will remain on a ventilator for some time going forward and might need to go to LTAC also if and when she improves. This documentation was created by [employer] economic specialist software. Every effort was made to ensure accuracy of economic specialist. Any obvious errors or omissions should be clarified with the author of the document. Attestations Medical Necessity Statement*: Requires further hospitalization for persistent ARDS, ventilator dependent in a patient with morbid obesity, severe undiagnosed sleep apnea, BRIDGETTE requiring dialysis, septic shock Procedures Arterial Line Size (Gauge): 20 Coding Level of Care Code Critical Care >/= 30 minutes Critical care time (in minutes): 80 The high probability of a clinically significant, sudden or life threatening deterioration, as referenced in this documentation, required my full and direct attention, intervention and personal management. The critical care time shown is in addition to time spent performing any reported separately billable procedures and includes the following: [x] Data and vital sign review and interpretation [x ] Patient assessment, examination and intervention [x] Medication orders and management [x] Patient/Family updates as able [x] Care Coordination and Documentation. Other Coding Information This patient has a high probability of clinically significant, sudden or life threatening deterioration of the patient's (neurological/pulmonary/cardiac/renal/ID/endocrine) systems required my full, direct attention, the highest level of physician preparedness for urgent intervention and personal management. I managed/supervised life or organ supporting interventions that required frequent physician assessment. I devoted my full attention in the ICU to the direct care of this patient for the period of time indicated above. Time I spent with family or surrogate(s) is included only if the patient was incapable of providing necessary information or participating in decision making. This time includes the following services provided: Telemetry review Mechanical Ventilation Hemodynamic interpretation, assessment and management Review and interpretation of CXR Review and interpretation of lab values Review and interpretation of microbiologic data and culture results Review of medications and administration Review and interpretation of Nutrition requirements and management Discussion of management with other consultants and services Clinical update to family members Diagnoses ARDS (adult respiratory distress syndrome) J80 Shock R57.9 Acute respiratory failure with hypoxia and hypercapnia J96.01; J96.02 Obstructive sleep apnea G47.33 CHF (congestive heart failure) I50.33 Heart failure chronicity: acute on chronic Heart failure type: diastolic Dialysis patient Z99.2 Acute kidney injury N17.9 S/P bronchoscopy with bronchoalveolar lavage Z98.890 Pneumonia J18.9 Sepsis A41.9 Flash pulmonary edema J81.0 Hypertensive emergency I16.1 Essential hypertension I10 Fever R50.9
--- NOTE | 2022-09-16 19:28 | PM.PN ---
Subjective Subjective: remains on vent Medications: Reviewed: Yes Vitals/I&O/Wt Last Vital Signs Temp 98.6 F 09/16/22 18:06 Pulse 87 09/16/22 18:00 Resp 22 H 09/16/22 17:22 BP 112/60 09/16/22 18:00 Pulse Ox 95 09/16/22 18:00 O2 Del Method 09/16/22 15:01 O2 Flow Rate 6 09/08/22 09:00 FiO2 70 09/16/22 17:22 09/16/22 09/16/22 09/16/22 06:59 14:59 22:59 Intake Total 257.228 / 1105.989 202.958 / 202.958 300 / 502.958 Output Total 350 / 3650 150 / 150 Balance -92.772 / -2544.011 202.958 / 202.958 150 / 352.958 Weight last 48 hrs Weight 172 kg Weight 180.126 kg Weight 177.1 kg Weight 181.487 kg Physical Exam Narrative: Patient intubated, sedated, no acute distress Edema bilateral lower extremities Clear to auscultation per report Urinary Catheter Management: Cha: Cath Placed During This Visit: yes Reason for Continuing Indwelling Catheter: Accurate Measurement of Urinary Output in Critically Ill Patients Urinary Catheter Date of Insertion: 09/08/22 Urinary Catheter Time of Insertion: 10:29 Data 09/16/22 05:36 09/16/22 05:36 Micro: Microbiology 09/13/22 18:40 Gram Stain - Final Lung Left Lower Lobe Bronchoalveolar Lavage Culture - Final 09/16/22 13:27 Blood Culture - Preliminary Blood SPECIMEN COLLECTED A&P Assessment and plan (1) Acute kidney injury: Plan 1. Acute kidney injury. Different includes contrast nephropathy, sepsis, acute interstitial nephritis, hemodynamic. . Due to high O2 requirement and worsening renal function patient was started on HD. Would like to keep her on a negative fluid balance, plan for HD again today for 3 hours, baseline creatinine was normal prior to admission at 0.5. 2. Volume overload:HD as above 3. Primary respiratory acidosis, hypercapneic respiratory failure on ventilator, Recommend: , Follow Vanco level closely Attestations Medical Necessity Statement*: Requires further hospitalization for persistent ARDS, ventilator dependent in a patient with morbid obesity, severe undiagnosed sleep apnea, BRIDGETTE requiring dialysis, septic shock Procedures Arterial Line Size (Gauge): 20 Coding Level of Care Code Acute Code for Chg Fwd Diagnoses Acute kidney injury N17.9
[2022-09-16 19:33] LABS: Glucose Point of Care 111 mg/dL (70-110)
[2022-09-16 22:43] LABS: Partial Thromboplastin Time 48.7 SECONDS (23.9-36.7)
[2022-09-16] MEDS: heparin, porcine 1,000 unit/mL INJ 10 mL HE (23:07)
[2022-09-16] MEDS: albumin 12.5 GM/50 ML VIAL IV (23:35)
[2022-09-17] VITALS (71 sets, daily range): BP systolic 97–165; BP diastolic 48–94; PULSE 73–92; RESP 21–26; TEMP 36.9–37.8; O2SAT 91–96
[2022-09-17 01:14] LABS: Glucose Point of Care 119 mg/dL (70-110)
[2022-09-17] MEDS: heparin, porcine 1,000 unit/mL INJ 10 mL 10000 UNIT INTRACATH (01:26)
[2022-09-17] MEDS: piperacillin-tazobactam 3.375 GM in sodium chloride 0.9% (plus) 50 ML IV ×2 (01:27→12:57)
[2022-09-17] MEDS: bumetanide 0.25 mg/mL SDV 10 mL 2 MG IVP ×3 (01:31→18:28)
[2022-09-17] MEDS: ipratropium-albuterol 3 mL Neb INHALATION ×6 (04:46→23:08)
[2022-09-17 05:11] LABS: ABG PCO2 41.1 mmHg (35-45); ABG PH Result 7.37 (7.35-7.45); Alveolar-Arterial Oxygen Gradi 46.4 mmHg (5-10); Base Excess ABG -1.4 mmol/L (-2.0-2.0); Blood Gas Allen Test Pos; Blood Gas Sample Site Radial, right; Blood Gas Sample Type Arterial; Blood Gas Tidal Volume 0.42; HCO3 ABG 23.8 mmol/L (22-26); HGB O2 Sat 96.1 % (95-100); Ionized Calcium Level - ABG 1.2 mmol/L (1.1-1.4); Methemoglobin 0.8 % (0.4-1.5); Oxygen Device VENT; Oxygen Saturation ABG 97.8; Potassium Level - ABG 4.2 mmol/L (3.5-5.0); Total Hemoglobin 13.7 g/dL (12-16)
[2022-09-17 05:14] LABS: Glucose Point of Care 102 mg/dL (70-110)
[2022-09-17 05:18] LABS: Basophils % 0.4 %; Eosinophils % 0.1 %; Hematocrit 42.3 % (37.0-47.0); Hemoglobin 13.4 g/dL (11.5-15.3); Lymphocytes # 1.2 10^3/uL (0.8-4.8); Lymphocytes % 11.7 %; Mean Corpuscular HGB Conc 31.7 g/dL (30.0-36.0); Mean Corpuscular Hemoglobin 28.2 pg (28.0-34.0); Mean Corpuscular Volume 88.9 fl (81-99); Mean Platelet Volume 9.2 fL (7.4-10.4); Monocytes # 0.6 10^3/uL (0.2-0.9); Monocytes % 6.1 %; Neutrophils # 8.45 10^3/uL (1.8-7.7); Neutrophils % 81.2 %; Nucleated Red Blood Cells % 0 %; Platelet Count 223 10^3/cmm (130-400); Red Blood Count 4.76 10^6/uL (4.1-5.3); Red Cell Distribution Width 13.6 % (12.1-15.1); White Blood Count 10.4 10^3/uL (4.0-10.0)
[2022-09-17 05:37] LABS: Alanine Aminotransferase 24 U/L (0-33); Alkaline Phosphatase 64 U/L (35-105); Anion Gap 23.3 (5-19); Aspartate Amino Transferase 31 U/L (0-32); Blood Urea Nitrogen 41 mg/dL (6-20); Calcium 10.1 mg/dL (8.5-10.5); Carbon Dioxide 21 mmol/L (22-29); Chloride 96 mmol/L (98-107); Globulin 3.5 g/dL (1.3-4.6); Glomerular Filtration Rate 10.4 mL/min (90-130); Glucose 96 mg/dL (65-115); Osmolality Calculated 292 mOsm/kg (285-295); Potassium 4.3 mmol/L (3.5-5.1); Sodium 136 mmol/L (136-145); Total Bilirubin 0.5 mg/dL (0.15-1.2); Total Protein 7.5 g/dL (6.6-8.7)
[2022-09-17 05:38] LABS: Partial Thromboplastin Time 79.5 SECONDS (23.9-36.7)
[2022-09-17] MEDS: hydrocortisone 100 mg/2 mL SDV IVP ×3 (05:38→20:32)
[2022-09-17] MEDS: silver sulfadiazine cream 1% 50 gm 1 APPLIC TOPICAL ×2 (05:38→20:33)
[2022-09-17 07:50] LABS: Glucose Point of Care 95 mg/dL (70-110)
[2022-09-17] MEDS: budesonide 0.5 mg/2 mL Neb INHALATION ×2 (08:01→20:08)
[2022-09-17] MEDS: pantoprazole 40 mg SDV IVP (08:18)
[2022-09-17] MEDS: levothyroxine 100 mcg SDV 50 MCG IVP (08:18)
[2022-09-17] MEDS: metOLazone 5 MG Tablet PO (08:18)
--- NOTE | 2022-09-17 09:12 | XRR_ITS ---
PROCEDURE INFORMATION: Exam: XR Chest Exam date and time: 09/17/2022 9:45 AM Age: 42 years old Clinical indication: Cough; Additional info: Pneumonia TECHNIQUE: Imaging protocol: Radiologic exam of the chest. Views: 1 view. COMPARISON: CR (CHEST, ) 09/09/2022 4:04 AM FINDINGS: Airway: There is an ET 2 in satisfactory position 6 cm above the maynor. There is an NG tube coursing below the field of view into the stomach. Lungs: Lung volumes are significantly decreased. Patient is also rotated with prominent breast attenuation artifact limiting assessment of the lung figueroa. Generalized haziness with ground-glass opacification both lung figueroa that may be transient due to poor inspiratory effort. More confluent opacity projecting below the right hilum difficult to assess due to patient rotation and inconclusive for infiltrate. Pleural spaces: Unremarkable. No pleural effusion. No pneumothorax. Heart/Mediastinum: Heart appears enlarged. Bones/joints: Unremarkable for age. XR/XR chest 1V portable [id number] IMPRESSION: 1. Tubes and lines in satisfactory position. 2. Technically limited assessment of the lung figueroa. Questionable right infrahilar infiltrate.
--- NOTE | 2022-09-17 09:21 | PM.PN ---
Subjective Subjective: no new complaints Medications: Reviewed: Yes Vitals/I&O/Wt Last Vital Signs Temp 98.6 F 09/17/22 07:30 Pulse 85 09/17/22 08:30 Resp 22 H 09/17/22 07:40 BP 128/60 09/17/22 08:30 Pulse Ox 94 09/17/22 08:30 O2 Del Method 09/17/22 07:30 O2 Flow Rate 6 09/08/22 09:00 FiO2 70 09/17/22 08:00 09/16/22 09/17/22 09/17/22 22:59 06:59 14:59 Intake Total 793.8 / 247.820 1348.790 / 2362.548 Output Total 150 / 150 3509 / 3659 Balance 643.8 / 846.758 -2143.210 / -1296.452 Weight last 48 hrs Weight 170.233 kg Weight 172.9 kg Weight 172 kg Weight 180.126 kg Weight 177.1 kg Physical Exam Narrative: Patient intubated, sedated, no acute distress Edema bilateral lower extremities Clear to auscultation per report Urinary Catheter Management: Cha: Cath Placed During This Visit: yes Reason for Continuing Indwelling Catheter: Accurate Measurement of Urinary Output in Critically Ill Patients Urinary Catheter Date of Insertion: 09/08/22 Urinary Catheter Time of Insertion: 10:29 Data 09/17/22 05:10 09/17/22 05:10 Micro: Microbiology 09/16/22 11:07 Blood Culture - Preliminary Blood SPECIMEN COLLECTED 09/13/22 18:40 Gram Stain - Final Lung Left Lower Lobe Bronchoalveolar Lavage Culture - Final 09/16/22 13:27 Blood Culture - Preliminary Blood SPECIMEN COLLECTED A&P Assessment and plan (1) Acute kidney injury: Plan 1. Acute kidney injury. Different includes contrast nephropathy, sepsis, acute interstitial nephritis, hemodynamic. . Due to high O2 requirement and worsening renal function patient was started on HD. Would like to keep her on a negative fluid balance, s/p HD last night , eval daily for hD needs. baseline creatinine was normal prior to admission at 0.5. 2. Volume overload:HD as above 3. Primary respiratory acidosis, hypercapneic respiratory failure on ventilator, Recommend: , Follow Vanco level closely Attestations Medical Necessity Statement*: Requires further hospitalization for persistent ARDS, ventilator dependent in a patient with morbid obesity, severe undiagnosed sleep apnea, BRIDGETTE requiring dialysis, septic shock Procedures Arterial Line Size (Gauge): 20 Coding Level of Care Code Acute Code for Chg Fwd Diagnoses Acute kidney injury N17.9
[2022-09-17] MEDS: heparin drip 25,000 UNIT/500 ML PREMIX 41 UNIT IV (10:49)
[2022-09-17 11:24] LABS: Glucose Point of Care 101 mg/dL (70-110)
[2022-09-17 11:51] LABS: Partial Thromboplastin Time 47.1 SECONDS (23.9-36.7)
[2022-09-17] MEDS: heparin 5,000 unit/mL INJ 1 mL IV ×2 (12:56→21:07)
[2022-09-17 13:04] LABS: Bilirubin Urine Neg (Negative); Blood Urine 3+ (Negative); Glucose Urine UA Norm (Normal); Ketones Urine Negative (Negative); Nitrate Urine Negative (Negative); Protein Urine Trace (Negative); Urine Appearance Hazy (CLEAR); Urine Color Yellow (Yellow); pH Urine 8 (5-7)
[2022-09-17 13:05] LABS: Add Urine Microscopic? YES; Leukocyte Esterase Urine 2+ (Negative); Sulfosalicylic Acid Urine Positive (Negative); Urobilinogen Urine Norm (Negative)
[2022-09-17 13:06] LABS: RBC Urine 25-40 /hpf (0-2); WBC Urine 55-80 /hpf (0-5)
[2022-09-17 13:07] LABS: Bacteria Urine 2+ /hpf; Squamous Epithelial Cell Urine 25-40 /hpf (0-5)
[2022-09-17 13:08] LABS: Add Urine Culture? No
--- NOTE | 2022-09-17 13:28 | P.PN_ITS ---
Subjective Subjective: Patient seen at bedside She is still sedated adequately-opens eyes and her FiO2 down to 60% Has 1 low-grade temp spike today morning Blood cultures are still pending and patient on vancomycin and Zosyn Family at bedside Other labs and imaging reviewed Medications: Reviewed: Yes Medication Review Details: Generic Name Dose Route Start Last Admin Trade Name Freq PRN Reason Stop Dose Admin Acetaminophen 650 mg 09/06/22 10:41 09/07/22 04:50 Acetaminophen 32 5 Mg Tablet PO 650 mg Q6H PRN Administration Mild/Mod Pain Or Temp >/= 101 Albuterol/Ipratrop ium 3 ml 09/06/22 10:45 09/10/22 08:21 Ipratropium-Albu terol 3 Ml Neb INHALATION 3 ml Q6H.RESP PRN Administration SHORTNESS OF KVNG TH Chlorhexidine Gluc millie 1 applic 09/10/22 01:00 09/10/22 04:17 Chlorhexidine Gl uconate 4% Btl 118 Ml TOPICAL Not Given 0100 [place] Heparin Sodium (Po rcine) 5,000 unit 09/06/22 10:45 09/10/22 11:01 Heparin 5,000 Un it/Ml Inj 1 Ml SUBCUT 5,000 unit Q8H [place] Administration Norepinephrine Bit artrate 4 mg 254 mls @ 0 mls/h r 09/07/22 22:30 09/08/22 13:45 / Dextrose IV Infused .Q0M [place] Titration Protocol Per Protocol Norepinephrine Bit artrate 8 mg 508 mls @ 0 mls/h r 09/08/22 11:30 09/09/22 10:04 / Dextrose IV 0 mcg/min .Q0M ST[place] 0 mls/hr Titration Protocol Per Protocol Propofol 1,000 mg in 100 m ls @ 0 mls/hr 09/09/22 03:45 09/10/22 08:33 Diprivan IV 30 mcg/kg/min .Q0M [place] 31.14 mls/hr Administration Protocol Per Protocol Fentanyl 2,500 mcg / Sodium 250 mls @ 0 mls/h r 09/09/22 04:45 09/09/22 13:56 Chloride IV 30 mcg/hr .Q0M [place] 3 mls/hr Titration Protocol Per Protocol Piperacillin Sod/T azobactam 50 mls @ 12.5 mls /hr 09/10/22 08:00 09/10/22 07:58 Sod 2.25 gm/ Sod ium Chloride IV 12.5 mls/hr Q8H [place] Administration Ondansetron HCl 4 mg 09/06/22 10:41 09/08/22 16:34 Ondansetron 2 Mg /Ml Sdv 2 Ml IVP 4 mg Q8H PRN Administration vomiting, or N/V if npo Vitals/I&O/Wt Last Vital Signs Temp 98.6 F 09/17/22 07:30 Pulse 92 09/17/22 12:00 Resp 21 H 09/17/22 11:08 BP 158/90 09/17/22 12:00 Pulse Ox 93 09/17/22 12:00 O2 Del Method 09/17/22 11:00 O2 Flow Rate 6 09/08/22 09:00 FiO2 60 09/17/22 11:08 09/16/22 09/17/22 09/17/22 22:59 06:59 14:59 Intake Total 793.8 / 074.600 7333.790 / 2362.548 268.500 / 268.500 Output Total 150 / 150 3509 / 3659 Balance 643.8 / 846.758 -2143.210 / -1296.452 268.500 / 268.500 Weight last 48 hrs Weight 375 lb 4.8 oz Weight 381 lb 2.868 oz Weight 379 lb 3.121 oz Weight 397 lb 1.76 oz Weight 390 lb 7.018 oz Physical Exam Narrative: PHYSICAL EXAM: General: Morbidly obese, young female, lying in bed, sedated and intubated. HEENT:NCAT, PERRLA, EOMI Neck: Supple Lungs: Bilateral diffuse crackles Heart: s1/s2, RRR Abd: soft, NT, ND, BS + Normoactive Extremities: No edema, right forearm infiltrated RESIDENT CARE SPEC: sedated and limited RESIDENT CARE SPEC exam possible. SKIN: no rash LDA: # HD Cath : Right IJ 09/11/2022 # A line: 09/08/2022 left radial artery #CVC: Right femoral line 09/08/2022 Urinary Catheter Management: Cha: Cath Placed During This Visit: yes Reason for Continuing Indwelling Catheter: Accurate Measurement of Urinary Output in Critically Ill Patients Urinary Catheter Date of Insertion: 09/08/22 Urinary Catheter Time of Insertion: 10:29 Data 09/17/22 05:10 09/17/22 05:10 Other Labs: Radiology Impressions Duplex Scan Upper Extremity Artery 09/08/22 20:22 IMPRESSION: 1. No evidence for major vessel occlusion or significant stenosis. 2. Other details discussed above. Venous Duplex 09/08/22 20:31 IMPRESSION: No evidence of acute right upper extremity DVT. Renal Ultrasound 09/09/22 05:33 IMPRESSION: 1. No hydronephrosis of either kidney. 2. Technologist notes somewhat limited evaluation of the kidneys, due to patient condition and body habitus. 3. Other details discussed above. Chest CTA 09/13/22 10:26 IMPRESSION: 1. Very limited exam due to artifact from CT bore contact. 2. Nondiagnostic evaluation of the pulmonary arteries. 3. Complete atelectasis of both lower lobes and partial atelectasis of the left upper lobe. 4. Cardiac enlargement. 5. Enlarged main pulmonary artery suggests pulmonary hypertension. 6. Lexus hepatis and gastrohepatic ligament lymphadenopathy is partially imaged. Recommend follow-up abdomen pelvis CT. 7. Satisfactory position of lines and tubes. Chest X-Ray 09/17/22 09:12 IMPRESSION: 1. Tubes and lines in satisfactory position. 2. Technically limited assessment of the lung figueroa. Questionable right infrahilar infiltrate. Laboratory Results WBC 10.4 10^3/uL (4.0-10.0) H 09/17/22 05:10 RBC 4.76 10^6/uL (4.1-5.3) 09/17/22 05:10 Hgb 13.4 g/dL (11.5-15.3) 09/17/22 05:10 Hct 42.3 % (37.0-47.0) 09/17/22 05:10 MCV 88.9 fl (81-99) 09/17/22 05:10 MCH 28.2 pg (28.0-34.0) 09/17/22 05:10 MCHC 31.7 g/dL (30.0-36.0) D 09/17/22 05:10 RDW 13.6 % (12.1-15.1) 09/17/22 05:10 Plt Count 223 10^3/cmm (130-400) 09/17/22 05:10 MPV 9.2 fL (7.4-10.4) 09/17/22 05:10 Neut % (Auto) 81.2 % 09/17/22 05:10 Lymph % (Auto) 11.7 % 09/17/22 05:10 [place] % (Auto) 6.1 % 09/17/22 05:10 Eos % (Auto) 0.1 % 09/17/22 05:10 Baso % (Auto) 0.4 % 09/17/22 05:10 Neut # (Auto) 8.45 10^3/uL (1.8-7.7) H 09/17/22 05:10 Lymph # (Auto) 1.2 10^3/uL (0.8-4.8) 09/17/22 05:10 [place] # (Auto) 0.6 10^3/uL (0.2-0.9) 09/17/22 05:10 Eos # (Auto) 0.0 10^3/uL (0.0-0.8) 09/17/22 05:10 Baso # (Auto) 0.0 10^3/uL (0.0-0.1) 09/17/22 05:10 Nucleated RBC % (auto) 0 % 09/17/22 05:10 Nucleated RBCs # 0.0 /100WBC 09/17/22 05:10 APTT 47.1 SECONDS (23.9-36.7) H 09/17/22 11:25 D-Dimer 3.78 ug/mIFEU (0-0.59) H 09/15/22 17:57 Specimen Type Arterial 09/17/22 04:00 Sample Site Radial, right 09/17/22 04:00 ABG pH 7.37 (7.35-7.45) 09/17/22 04:00 ABG pCO2 41.1 mmHg (35-45) 09/17/22 04:00 ABG pO2 88.0 mmHg (80.0-100.0) 09/17/22 04:00 ABG HCO3 23.8 mmol/L (22-26) 09/17/22 04:00 ABG O2 Saturation 97.8 09/17/22 04:00 ABG Base Excess -1.4 mmol/L (-2.0-2.0) 09/17/22 04:00 [place]ider Test Pos 09/17/22 04:00 A-a O2 Gradient 46.4 mmHg (5-10) H 09/17/22 04:00 Hematocrit 42.0 % (37-47) 09/17/22 04:00 Hgb O2 Saturation 96.1 % (95-100) 09/17/22 04:00 Carboxyhemoglobin 1.0 %THgb (0.4-20.1) 09/17/22 04:00 Methemoglobin 0.8 % (0.4-1.5) 09/17/22 04:00 Total Hemoglobin 13.7 g/dL (12-16) 09/17/22 04:00 Sodium 140.0 mmol/L (131-143) 09/17/22 04:00 Potassium 4.2 mmol/L (3.5-5.0) 09/17/22 04:00 Glucose 96.0 mg/dL (70-115) 09/17/22 04:00 Ionized Calcium 1.2 mmol/L (1.1-1.4) 09/17/22 04:00 O2 Delivery Device Vent 09/17/22 04:00 O2 Liters/Min 7.0 % 09/08/22 15:57 FiO2 70.0 % 09/17/22 04:00 Tidal Volume 0.42 09/17/22 04:00 PEEP 16.0 cmH20 09/17/22 04:00 Bread Distributor ID [email or web address] 09/17/22 04:00 Sodium 136 mmol/L (136-145) 09/17/22 05:10 Potassium 4.3 mmol/L (3.5-5.1) 09/17/22 05:10 Chloride 96 mmol/L (98-107) L 09/17/22 05:10 Carbon Dioxide 21 mmol/L (22-29) L 09/17/22 05:10 Anion Gap 23.3 (5-19) H 09/17/22 05:10 BUN 41 mg/dL (6-20) H 09/17/22 05:10 Creatinine 4.6 mg/dL (0.5-0.9) H 09/17/22 05:10 GFR Calculation 10.4 mL/min (90-130) L 09/17/22 05:10 Glucose 96 mg/dL (65-115) 09/17/22 05:10 POC Glucose 101 mg/dL (70-110) 09/17/22 11:20 Estimat Average Glucose 114 09/12/22 03:59 Hemoglobin A1c 5.6 % (4.0-6.0) 09/12/22 03:59 Calculated Osmolality 292 mOsm/kg (285-295) 09/17/22 05:10 Lactic Acid 1.6 mmol/L (0.5-2.2) 09/08/22 09:06 Calcium 10.1 mg/dL (8.5-10.5) 09/17/22 05:10 Phosphorus 5.9 mg/dL (2.5-4.5) H 09/11/22 05:57 Magnesium 2.1 mg/dL (1.7-2.3) 09/07/22 04:38 Iron 46 ug/dL (37-145) 09/11/22 05:57 TIBC 271 mcg/dl 09/11/22 05:57 % Saturation 16.9 % (20-50) L 09/11/22 05:57 Unsat Iron Binding 225 ug/dL (112-347) 09/11/22 05:57 Total Bilirubin 0.5 mg/dL (0.15-1.2) 09/17/22 05:10 AST 31 U/L (0-32) 09/17/22 05:10 ALT 24 U/L (0-33) 09/17/22 05:10 Alkaline Phosphatase 64 U/L (35-105) 09/17/22 05:10 Creatine Kinase 225 U/L (26-192) H 09/10/22 03:30 CK-MB (CK-2) 14.9 ng/mL (0-5.34) H 09/10/22 03:30 CK-MB (CK-2) Rel Index 6.6 % (0.0-10.4) 09/10/22 03:30 NT-Pro-B Natriuret Pep 1494 pg/mL (0-125) H 09/11/22 05:57 Total Protein 7.5 g/dL (6.6-8.7) 09/17/22 05:10 Albumin 4.0 g/dL (3.5-5.2) 09/17/22 05:10 Globulin 3.5 g/dL (1.3-4.6) 09/17/22 05:10 Triglycerides 313 mg/dL (0-150) H 09/12/22 03:59 Cholesterol 140 mg/dL (0-200) 09/12/22 03:59 LDL Cholesterol, Calc 49 mg/dL (50-129) L 09/12/22 03:59 Total VLDL Cholesterol 63 mg/dL (0-30) H 09/12/22 03:59 HDL Cholesterol 28 mg/dL (60-100) L 09/12/22 03:59 Cholesterol/HDL Ratio 5.00 mg/dL (0.0-4.40) H 09/12/22 03:59 Vitamin B12 514 pg/mL (232-1245) 09/11/22 05:57 Folate 8.9 ng/mL (4.8-37.3) 09/11/22 05:57 Procalcitonin 0.35 ng/mL (0-0.5) 09/08/22 09:06 TSH 18.45 uIU/mL (0.27-4.20) H 09/15/22 02:38 Free T4 0.60 ng/dL (0.82-1.77) L 09/15/22 02:38 Free T3 2.2 PG/ML (2.0-4.4) 09/11/22 05:57 Random Cortisol 2.67 ug/dL (2.47-19.5) 09/15/22 02:38 Urine Color Yellow (Yellow) 09/17/22 12:15 Urine Appearance Hazy (CLEAR) A 09/17/22 12:15 Urine pH 8 (5-7) H 09/17/22 12:15 Ur Specific Gardner 1.010 (1.005-1.030) 09/17/22 12:15 Urine Protein Trace (Negative) 09/17/22 12:15 Urine Glucose (UA) Norm (Normal) 09/17/22 12:15 Urine Ketones Negative (Negative) 09/17/22 12:15 Urine Blood 3+ (Negative) H 09/17/22 12:15 Urine Nitrate Negative (Negative) 09/17/22 12:15 Urine Bilirubin Neg (Negative) 09/17/22 12:15 Prot Sulfosalicylic Acd Positive (Negative) 09/17/22 12:15 Urine Urobilinogen Norm mg/dL (Negative) 09/17/22 12:15 Ur Leukocyte Esterase 2+ (Negative) H 09/17/22 12:15 Urine RBC 25-40 /hpf (0-2) H 09/17/22 12:15 Urine WBC 55-80 /hpf (0-5) H 09/17/22 12:15 Ur Squamous Epith Cells 25-40 /hpf (0-5) H 09/17/22 12:15 Ur Transition Epith Cell 0-4 /hpf 09/10/22 12:30 Amorphous Sediment Not Reportable 09/17/22 12:15 Urine Bacteria 2+ /hpf (NONE) H 09/17/22 12:15 Urine Yeast 2+ /hpf H 09/17/22 12:15 Ur Random Sodium 93 mmol/L 09/09/22 01:10 Urine Creatinine 51 mg/dL (28-217) 09/09/22 01:10 Nasal Influ A H1 2008 PCR Not detected (NOT DETECT) 09/08/22 08:45 Bronch Specimen Source Left lower lobe 09/13/22 18:40 Bronchial Fluid Color Red 09/13/22 18:40 Bronchial Fluid Appearance Bloody (CLEAR) 09/13/22 18:40 Bronchial Fluid WBC 1361 /uL 09/13/22 18:40 Bronchial Fluid RBC 900 10^3/uL 09/13/22 18:40 Bronch Cells Counted 200 09/13/22 18:40 Bronchial Neutrophils 72.00 % (0.9-2.3) H 09/13/22 18:40 Bronchial Lymphocytes 26.00 % (10.71-12.91) H 09/13/22 18:40 Bronchial Eosinophils 1.00 % (0.13-0.25) H 09/13/22 18:40 Bronchial Macrophages 1.00 % (83.6-86.8) L 09/13/22 18:40 Bronchial Diff Comment Yes 09/13/22 18:40 Random Vancomycin 18.7 ug/mL (20.0-40.0) L 09/12/22 03:59 Adenovirus (PCR) Not detected (NOT DETECT) 09/08/22 08:45 C. pneumoniae DNA (PCR) Not detected (NOT DETECT) 09/08/22 08:45 Coronavirus 229E (PCR) Not detected (NOT DETECT) 09/08/22 08:45 Hepatitis A IgM Ab Non-reactive (Nonreactive) 09/11/22 05:57 Hep Bs Antigen Non-reactive (Nonreactive) 09/11/22 05:57 Hep Bs Antibody 12.8 (11.5-1000) 09/11/22 05:57 Hep B Core Total Ab Non-reactive (Nonreactive) 09/11/22 05:57 Hepatitis C Antibody Non-reactive (Nonreactive) 09/11/22 05:57 Human Metapneumovir PCR Not detected (NOT DETECT) 09/08/22 08:45 Influenza A (H1) PCR Not detected (NOT DETECT) 09/08/22 08:45 Influenza A (H3) PCR Not detected (NOT DETECT) 09/08/22 08:45 Influenza Type A (PCR) Not detected (NOT DETECT) 09/08/22 08:45 Influenza Type B (PCR) Not detected (NOT DETECT) 09/08/22 08:45 M. pneumoniae (PCR) Not detected (NOT DETECT) 09/08/22 08:45 Parainfluenza 1 (PCR) Not detected (NOT DETECT) 09/08/22 08:45 Parainfluenza 2 (PCR) Not detected (NOT DETECT) 09/08/22 08:45 Parainfluenza 3 (PCR) Not detected (NOT DETECT) 09/08/22 08:45 Parainfluenza 4 (PCR) Not detected (NOT DETECT) 09/08/22 08:45 RSV Type A (PCR) Not detected (NOT DETECT) 09/08/22 08:45 RSV Type B (PCR) Not detected (NOT DETECT) 09/08/22 08:45 Entero/Rhino (PCR) Not detected (NOT DETECT) 09/08/22 08:45 SARS-CoV-2 (PCR) Not detected (NOT DETECT) 09/08/22 08:45 Micro: Microbiology 09/16/22 11:07 Blood Culture - Preliminary Blood SPECIMEN COLLECTED 09/13/22 18:40 Gram Stain - Final Lung Left Lower Lobe Bronchoalveolar Lavage Culture - Final 09/16/22 13:27 Blood Culture - Preliminary Blood SPECIMEN COLLECTED A&P Assessment and plan (1) Acute respiratory failure with hypoxia and hypercapnia: (2) Obstructive sleep apnea: (3) Pneumonia: (4) Flash pulmonary edema: (5) Acute kidney injury: (6) ARDS (adult respiratory distress syndrome): Plan ASSESSMENT/PLAN:Overall: 42-year-old young female with past medical history of hypertension-noncompliant with her medications-initially comes with hypertensive emergency with flash pulmonary edema-treated with nicardipine drip-becomes hypotensive-started on pressors and antibiotics for presumed sepsis. She went into respiratory failure requiring mechanical ventilation support. She also developed BRIDGETTE requiring temporary hemodialysis. NEURO: #Sedation-currently on fentanyl and Versed gtt. -Adjust to maintain RASS -2 PULM: #Acute hypoxic and hypercapnic respiratory failure-probably there is a chronic component given her morbid obesity #?? Possible ARDS -Acute component secondary to flash pulmonary edema due to hypertensive emergency - -PEEP 16 with an intention to counteract her chest wall resistance given her morbid obesity-her FiO2 gradually came down to 60% % and recommended to come down gradually on PEEP once FiO2 is down to 45 to 50% -We will continue to monitor with serial ABG -She underwent CTA for increasing oxygen requirements-there was a lot of motion artifact and CT was nondiagnostic for pulmonary arteries. There is moderate cardiac enlargement and enlarged main pulmonary artery suggesting pulmonary hypertension. There was partial atelectasis of left upper lobe and complete atelectasis of both lower lobes. -Currently receiving IV heparin as patient had persistent hypoxemia and CTA was nondiagnostic-oxygenation started to improve -She underwent bronchoscopic evaluation for airways 09/13/2022-there were thick mucus secretions in bilateral lower lobes which were suctioned-BAL neutrophils predominant-final cultures negative -She is on scheduled nebulization with DuoNeb as well as Pulmicort -Currently she is on Bumex 2 Mg Q8 over follow-up fluid overload-and temporary hemodialysis as per renal team -We will continue with awakening and breathing trials once FiO2 is down to 50% CVS: #Hypertensive emergency-treated with nicardipine drip-resolved #Circulatory shock-likely secondary to possible nicotine toxicity or demand ischemia due to underlying? Sepsis -Currently requiring intermittently requiring Levophed -Echocardiogram during admission showed normal LV size, systolic function with EF 60%. Grade 1 diastolic dysfunction. -Elevated BNP -We will continue with Bumex 2 Mg every 8 hours and fluid removal through temporary hemodialysis -Continue close hemodynamic and cardiac monitoring GI: #Diet: TF nephro #GI prophylaxis: PPI #LFTs: elevated - monitor RENAL: #BRIDGETTE-most likely prerenal secondary to ischemic ATN due to hypotension/? Contrast-induced nephropathy -- Currently on daily hemodialysis for 3 hours as per renal team to achieve net negative fluid balance -Electrolytes are acceptable but her BUN/creatinine kind of plateaued and unfortunately her urine output is not very encouraging which could also be due to at least 3 L being taken out through dialysis -Currently on Bumex 2 Mg 3 times daily -She is requiring almost daily hemodialysis-I am anticipating she may may be dependent on hemodialysis for neck several days-nephrology on board and if they agree-we will consult general surgery for tunneled hemodialysis catheter placement HEM: #Leukocytosis-improving #H&H stable #Normal platelets ENDO: #Significantly elevated TSH-suspect hypothyroidism-patient on levothyroxine 50 mcg q. p.o. daily-she may need to follow-up as outpatient #Normal blood sugars #Possible underlying adrenal insufficiency-currently on stress dose steroids ID: #Presumably met sepsis criteria #Low-grade temperature spikes- -Pulmonary infiltrates on imaging-with leukocytosis-and hypotension-there was a suspicion if it is all septic shock secondary to pneumonia; -However infiltrates can be explained with fluid overload, hypotension secondary to need Cardene drip -Patient procalcitonin is low -Repeat blood cultures sent today 09/16/22 -pending -Back on vancomycin and Zosyn -BAL neutrophil predominance-final cultures negative Code Status: Full code Disposition: ICU Critically ill: Yes MD discussed with: Hospitalist, RN, RT taking care of the patient ICU CHECKLIST: Problem list updated Verbal orders reviewed and signed Analgesia: Fentanyl Glycemic Control: N/A Nutrition: TF nephro Restraint Renewal (within 24 hrs): Yes Ulcer Prophylaxis: PPI Chemical Thromboprophylaxis: Prophylaxis: Heparin Mechanical Thromboprophylaxis: SCDs Need for Central line: Yes for multiple medications Need for Cha catheter: Yes for urine output monitoring Attestations Medical Necessity Statement*: Acute hypoxic/hypercapnic respiratory failure secondary to fluid overload due to hypertensive emergency-requiring mechanical ventilation; will continue to monitor at least 48 hours in ICU Critical Care Time: This patient has a high probability of? clinically sig nificant, sudden o r life threatening deterioration of the patient's (jonathan rological/pulmonar y/cardiac/renal/ID /endocrine) system s required my full , direct attention , the highest leve l of physician pre paredness for urge nt intervention an d personal managem ent.? I managed/meade pervised life or o rgan supporting in terventions that r equired frequent p hysician assessmen t.? I devoted my f ull attention in t he ICU to the dire ct care of this segun humphrey for the kareen od of time indicat ed above.? Time I spent with family or surrogate(s) is included only if the patient was in capable of providi ng necessary infor mation or particip ating in decision making.? This annie e includes the [facility] services pr ovided: Telemetry review Mechanical Ventilation Hemod ynamic interpretat ion, assessment an d management Revie w and interpretati on of CXR Review a nd interpretation of lab values Revi ew and interpretat ion of microbiolog ic data and cultur e results Review o f medications and administration Rev iew and interpreta tion of Nutrition requirements and m anagement Discussi on of management w ith other consulta nts and services C linical update to family members [x ] Data and vital s ign review and int erpretation [x] Segun humphrey assessment, examination and in tervention [x] Doc umentation [x] Med ication orders and management Time spent for teaching as well as perfor aydin procedures ar e billed separatel y and is not inclu ded in this note ? Critical Care Annie e (min): 59 Procedures Arterial Line Size (Gauge): 20 Coding Level of Care Code Acute Code for Chg Fwd Diagnoses Acute respiratory failure with hypoxia and hypercapnia J96.01; J96.02 Obstructive sleep apnea G47.33 Pneumonia J18.9 Flash pulmonary edema J81.0 Acute kidney injury N17.9 ARDS (adult respiratory distress syndrome) J80 Time Spent (min) 59
--- NOTE | 2022-09-17 16:26 | P.PN_ITS ---
Subjective Subjective: No acute events overnight. Patient today morning seen with family at bedside. Seen multiple times in the day. Multiple ventilator settings have been changed. Her FiO2 has come down from 70% to 50%. Tidal volume has remained 420 with PEEP of 16. Patient is maintaining saturation at 90 to 93%. Net 1300 cc negative yesterday and overall 9.5 L negative. Underwent dialysis yesterday with 3.3 L of ultrafiltrate. Tmax within last 24 hours of 101.3 Fahrenheit to afebrile since morning. Off Lev ophed. On Versed and fentanyl. Waking up to verbal stimulus. But not fighting the ventilator overbreathing the vent. Vitals/I&O/Wt Last Vital Signs Temp 98.6 F 09/17/22 07:30 Pulse 81 09/17/22 16:04 Resp 22 H 09/17/22 15:56 BP 148/87 09/17/22 14:30 Pulse Ox 93 09/17/22 15:56 O2 Del Method 09/17/22 15:55 O2 Flow Rate 6 09/08/22 09:00 FiO2 55 09/17/22 15:56 09/17/22 09/17/22 09/17/22 06:59 14:59 22:59 Intake Total 1365.790 / 2362.548 518.500 / 518.500 Output Total 3509 / 3659 Balance -2143.210 / -1296.452 518.500 / 518.500 Weight last 48 hrs Weight 170.233 kg Weight 172.9 kg Weight 172 kg Weight 180.126 kg Weight 177.1 kg Physical Exam Narrative: Intubated sedated on mechanical ventilation. Well sedated today Const: COMMON NORMALS: patient oriented x3 HENMT: COMMON NORMALS: normocephalic, atraumatic and hearing grossly normal bilaterally HEAD & SCALP: normocephalic and atraumatic Resp: COMMON NORMALS: clear to auscultation bilaterally AUSCULTATION: clear to auscultation bilaterally OTHER: Diminished air entry bilaterally mostly in the left lower lobe Cardio: COMMON NORMALS: regular rate, regular rhythm, S1 normal heart sound present, S2 normal heart sound present, No gallops present (Cardio), No murmurs present (Cardio), No rub (Cardio) and Peripheral pulses 2+ throughout RATE: regular rate RHYTHM: regular rhythm HEART SOUNDS: S1 normal heart sound present and S2 normal heart sound present PERIPHERAL PULSES: Peripheral pulses 2+ throughout GI: COMMON NORMALS: Normal to inspection, nondistended, normoactive bowel sounds present, Soft to palpation, non-tender, No hepatosplenomegaly present and no masses AUSCULTATION: Yes normoactive bowel sounds PALPATION: Yes Soft to palpation and Yes No hepatosplenomegaly present RECTAL EXAM: deferred Extremity: COMMON NORMALS: no clubbing, cyanosis or edema and no pedal edema Neuro: COMMON NORMALS: patient oriented x3 Skin: OTHER: Blister present in right dorsum of the hand secondary to infiltration earlier in the admission which has popped now. Urinary Catheter Management: Cha: Cath Placed During This Visit: yes Reason for Continuing Indwelling Catheter: Accurate Measurement of Urinary Output in Critically Ill Patients Urinary Catheter Date of Insertion: 09/08/22 Urinary Catheter Time of Insertion: 10:29 Data 09/17/22 05:10 09/17/22 05:10 Micro: Microbiology 09/16/22 13:27 Blood Culture - Preliminary Blood NEGATIVE TO DATE 09/16/22 11:07 Blood Culture - Preliminary Blood SPECIMEN COLLECTED 09/13/22 18:40 Gram Stain - Final Lung Left Lower Lobe Bronchoalveolar Lavage Culture - Final A&P Assessment and plan (1) ARDS (adult respiratory distress syndrome): (2) Shock: (3) Acute respiratory failure with hypoxia and hypercapnia: (4) Obstructive sleep apnea: (5) CHF (congestive heart failure): Qualifiers: Heart failure type: diastolic Heart failure chronicity: acute on chronic Qualified Code(s): I50.33 - Acute on chronic diastolic (congestive) heart failure (6) Dialysis patient: (7) Acute kidney injury: (8) S/P bronchoscopy with bronchoalveolar lavage: On 09/13. Encountered high mucus in left lower lobe. Follow cultures. Patient desaturated during procedures to high 70s and low 80s but otherwise tolerated procedure well. (9) Pneumonia: (10) Sepsis: (11) Flash pulmonary edema: (12) Hypertensive emergency: (13) Essential hypertension: (14) Fever: (15) Goals of care, counseling/discussion: (16) Ventilator dependent: Plan 42 year old female with known past medical history of hypertension noncompliant with antihypertensive medication, morbid obesity, was accepted as a direct transfer, she was initially admitted for the management of substernal chest pain, associated with acute onset of worsening shortness of breath. Assessment: ARDS: Hypoxic and hypercapnic respiratory failure: Currently intubated. Most likely in setting of decompensated congestive heart failure in setting of hypertensive emergency and acute kidney dysfunction in setting of obstructive sleep apnea and possible pneumonia. Continue current ventilator setting with repeat ABG in AM. Continue with Bumex to 2 mg 3 times daily. Patient getting more negative every day with dialysis now. Negative around 9.5 L today. If oxygenation continues to improve can plan for possible weaning trial in next 24 to 48 hours. Fluid restriction as much as possible. Not able to maintain fluid restriction given the amount of IV fluids patient is getting because of sedation and pressor support. Hold off on tube feeds for now to reduce fluid intake. Will request to continue with dialysis. Appreciate CTA results. Concern for fluid overload with possible mucous and left lower lobe for which she underwent bronchoscopy. Poor study for pulmonary embolism given movement artifacts. Repeat D-dimer still elevated and given patient requiring high oxygen supplementation even after maximum treatment for now we will continue with heparin drip while monitoring for drop in hemoglobin. Monitor daily weights. Echocardiogram done during hospitalization shows EF of 60% with grade 1 diastolic dysfunction. Patient will need an outpatient sleep study to quantify sleep apnea. Patient will most likely need to be extubated and discharged on BiPAP. Fever: New fevers in last 24 hours going up to 101.3 Fahrenheit. Antibiotics recently stopped. Repeat blood cultures. Multiple lines all done within the last 1 week. Uri nalysis and urine culture. For now empirically start patient on vancomycin and Zosyn. Previously blood cultures so far negative. Bronc cultures negative. Urine Legionella, bacterial antigen negative. Urine culture benign. Sputum culture negative. MRSA swab negative. Vancomycin stopped on 09/11, Zosyn last dose on 09/14. BRIDGETTE : Slight metabolic acidosis today. Possibly secondary to ATN secondary to sepsis, in the setting of acute hypotension, versus possibly secondary to antihypertensive effects. Possible contrast-induced nephropathy as she has received a CTA recently, possible AIN Continue daily dialysis for now. Bumex 2 mg every 8 hourly. Appreciate nephrology recommendations. Continue daily dialysis. Given patient being ventilator dependent with difficult extubation given multipl e comorbidities it would be best for patient to be as net negative as possible. Sepsis secondary to hospital-acquired pneumonia: Currently septic versus cardiogenic shock. Sepsis during admission which was ruled in with elevated white cell count, hypotensive, target organ dysfunction with increasing oxygen requirement and eventual intubation, need for vasopressor support, x-ray chest showing possible infiltrates. Wean Levophed while keeping mean arterial pressure over 65. Saturation over 92% . Continue with sedation with fentanyl and Versed for now. Subclinical hypothyroidism: TSH still elevated. Free T4 levels below normal. Check cortisol were suboptimally normal. Patient started on stress dose steroids with hydrocortisone 100 mg every 6 hourly. Will monitor response and plan to wean gradually. Monitor blood sugars. Hypertension with hypertensive emergency with flash pulmonary edema on admission: Resolved Blood pressure is better controlled. We will continue to monitor blood pressures and start treatment accordingly. Goal blood pressure less than 140/ 90 mmHg with mean over 65 Right upper extremity swelling: DVT ruled out. Does have blister on the dorsum of right hand due to infiltration of IV antibiotics. Continue to monitor. Sedation: Versed and fentanyl Glycemic control: Hypoglycemia protocol Nutrition: Hold off on tube feeds for now to restrict fluid intake. Was on goal of 60 cc/h. CODE STATUS: Discussed in detail with patient mother and who is the DPOA at bedside. Patient is full code. We discussed need for dialysis for quick improvement. Family verbalized understanding and are agreeable. PUD prophylaxis: Protonix DVT prophylaxis:Heparin 5000 SQ Q8h Discharge planning: We will plan on discharge to home versus SNF as per clinical improvement going forward once patient is extubated. Patient will need sleep study as an outpatient and possible discharge on BiPAP. Continue with care at ICU Plan for the day: Continue with current ventilator settings of tidal volume 420, PEEP of 16, FiO2 50%. Repeat ABG in AM. We will plan to come down on PEEP in AM. Holding off on dialysis today. Monitor urine output. Continue with Bumex 2 mg every 8 hourly. Continue holding off on Levophed keeping mean artery pressure over 65. Follow-up urine culture and blood culture. For now continue empiric vancomycin and Zosyn. Continue sedation with Versed and fentanyl. Appreciate pulmonary and nephrology recommendations. 09/17: Had a detailed discussion with patient's and mother at bedside. We discussed that patient is improving a bit with current management and oxygen supplementation are coming down but she continues to remain critically ill [place] and she is on ventilator, high PEEP and and dialysis. We did discuss that if she continues to improve we can do a weaning trial once PEEP also comes down versus possibility of transfer to LTAC as patient will require prolonged weaning trial. All the questions were answered. 09/14: Had family discussion with patient's mother, and father at [facility]. We discussed that unfortunately even after the maximum treatment including dialysis, high ventilator settings patient continues to require high oxygen supplementation which is most likely secondary to baseline severe and diagnosed obstructive sleep apnea, morbid obesity leading to restrictive lung disease, diastolic heart failure and severe acute kidney injury requiring dialysis which is restricting the treatment. We discussed given the severe obstructive sleep apnea it is being difficult to decrease the ventilator settings for the patient and currently patient is going into ARDS. We discussed what patient might benefit from would be proning and paralyzing but unfortunately given her body habitus it is impossible at our hospital to do proning as we do not have the beds required for proning in severely morbid obese patient. We also discussed that is difficult to transfer the patient as it is unsafe given the 100% FiO2 requirement currently. We discussed that we can go higher on the PEEP but that would put her at a higher risk of possible pneumothorax. Family verbalized understanding and understand the risks involved with the possibility of increasing the PEEP and given the limited options they are agreeable for the same. They are thankful for the care patient is receiving at the hospital. They understand that patient is critically sick and even if she improves there is a high chance that she will remain on a ventilator for some time going forward and might need to go to LTAC also if and when she improves. This documentation was created by [email or web address] power and recovery supervisor software. Every effort was made to ensure accuracy of power and recovery supervisor. Any obvious errors or omissions should be clarified with the author of the document. Attestations Medical Necessity Statement*: Patient request for further hospitalization for management of ARDS, sepsis in setting of severe obstructive sleep apnea in a morbidly obese female, acute kidney injury on dialysis patient remains ventilator dependent Procedures Arterial Line Size (Gauge): 20 Coding Level of Care Code Critical Care >/= 30 minutes Critical care time (in minutes): 80 The high probability of a clinically significant, sudden or life threatening deterioration, as referenced in this documentation, required my full and direct attention, intervention and personal management. The critical care time shown is in addition to time spent performing any reported separately billable procedures and includes the following: [x] Data and vital sign review and interpretation [x ] Patient assessment, examination and intervention [x] Medication orders and management [x] Patient/Family updates as able [x] Care Coordination and Documentation. Other Coding Information This patient has a high probability of clinically significant, sudden or life threatening deterioration of the patient's (neurological/pulmonary/cardiac/renal/ID/endocrine) systems required my full, direct attention, the highest level of physician preparedness for urgent intervention and personal management. I managed/supervised life or organ supporting interventions that required frequent physician assessment. I devoted my full attention in the ICU to the direct care of this patient for the period of time indicated above. Time I spent with family or surrogate(s) is included only if the patient was incapable of providing necessary information or participating in decision making. This time includes the following services provided: Telemetry review Mechanical Ventilation Hemodynamic interpretation, assessment and management Review and interpretation of CXR Review and interpretation of lab values Review and interpretation of microbiologic data and culture results Review of medications and administration Review and interpretation of Nutrition requirements and management Discussion of management with other consultants and services Clinical update to family members Diagnoses ARDS (adult respiratory distress syndrome) J80 Shock R57.9 Acute respiratory failure with hypoxia and hypercapnia J96.01; J96.02 Obstructive sleep apnea G47.33 CHF (congestive heart failure) I50.33 Heart failure type: diastolic Heart failure chronicity: acute on chronic Dialysis patient Z99.2 Acute kidney injury N17.9 S/P bronchoscopy with bronchoalveolar lavage Z98.890 Pneumonia J18.9 Sepsis A41.9 Flash pulmonary edema J81.0 Hypertensive emergency I16.1 Essential hypertension I10 Fever R50.9 Goals of care, counseling/discussion Z71.89 Ventilator dependent Z99.11
[2022-09-17] MEDS: docusate sodium 10 mg/mL (5ml) Liq 50 MG PO (18:41)
[2022-09-17 20:30] LABS: Partial Thromboplastin Time 49.9 SECONDS (23.9-36.7)
[2022-09-17] MEDS: artificial tears Op Oint 3.5 gm 1 APPLIC EYE-BOTH (20:34)
[2022-09-17 21:24] LABS: Glucose Point of Care 92 mg/dL (70-110)
[2022-09-17] MEDS: heparin drip 25,000 UNIT/500 ML PREMIX 47 UNIT IV (23:00)
[2022-09-18] VITALS (47 sets, daily range): BP systolic 94–180; BP diastolic 53–97; PULSE 66–86; RESP 22; TEMP 36.2–36.7; O2SAT 92–95
[2022-09-18 00:04] LABS: Glucose Point of Care 97 mg/dL (70-110)
[2022-09-18] MEDS: chlorhexidine gluconate 4% Btl 118 mL 1 APPLIC TOPICAL (00:26)
[2022-09-18] MEDS: piperacillin-tazobactam 3.375 GM in sodium chloride 0.9% (plus) 50 ML IV ×2 (00:27→15:39)
[2022-09-18] MEDS: bumetanide 0.25 mg/mL SDV 10 mL 2 MG IVP ×3 (01:02→17:53)
[2022-09-18 02:20] LABS: Basophils # 0.1 10^3/uL (0.0-0.1); Basophils % 0.6 %; Eosinophils % 0.1 %; Hematocrit 38.4 % (37.0-47.0); Lymphocytes % 11.8 %; Mean Corpuscular HGB Conc 31.3 g/dL (30.0-36.0); Mean Corpuscular Hemoglobin 27.8 pg (28.0-34.0); Mean Corpuscular Volume 89.1 fl (81-99); Monocytes # 0.5 10^3/uL (0.2-0.9); Monocytes % 5.9 %; Neutrophils % 80.8 %; Nucleated Red Blood Cells % 0 %; Platelet Count 198 10^3/cmm (130-400); Red Blood Count 4.31 10^6/uL (4.1-5.3); Red Cell Distribution Width 13.4 % (12.1-15.1); White Blood Count 8.4 10^3/uL (4.0-10.0)
[2022-09-18 02:44] LABS: Alanine Aminotransferase 17 U/L (0-33); Albumin Level 3.4 g/dL (3.5-5.2); Alkaline Phosphatase 49 U/L (35-105); Anion Gap 23.8 (5-19); Aspartate Amino Transferase 19 U/L (0-32); Blood Urea Nitrogen 62 mg/dL (6-20); Calcium 8.6 mg/dL (8.5-10.5); Carbon Dioxide 17 mmol/L (22-29); Chloride 104 mmol/L (98-107); Globulin 2.9 g/dL (1.3-4.6); Glomerular Filtration Rate 9.5 mL/min (90-130); Glucose 84 mg/dL (65-115); Osmolality Calculated 309 mOsm/kg (285-295); Potassium 3.8 mmol/L (3.5-5.1); Sodium 141 mmol/L (136-145); Total Bilirubin 0.4 mg/dL (0.15-1.2); Total Protein 6.3 g/dL (6.6-8.7)
[2022-09-18 02:50] LABS: Partial Thromboplastin Time 61.1 SECONDS (23.9-36.7)
[2022-09-18] MEDS: ipratropium-albuterol 3 mL Neb INHALATION ×6 (03:26→23:00)
[2022-09-18 03:42] LABS: ABG PCO2 39.2 mmHg (35-45); ABG PH Result 7.35 (7.35-7.45); Alveolar-Arterial Oxygen Gradi 27.1 mmHg (5-10); Arterial Blood Gas Hematocrit 40.9 % (37-47); Base Excess ABG -3.9 mmol/L (-2.0-2.0); Blood Gas Allen Test Pos; Blood Gas Sample Site Radial, right; Blood Gas Sample Type Arterial; Blood Gas Tidal Volume 0.42; HCO3 ABG 21.5 mmol/L (22-26); HGB O2 Sat 96.3 % (95-100); Ionized Calcium Level - ABG 1.3 mmol/L (1.1-1.4); Methemoglobin 0.9 % (0.4-1.5); Oxygen Device VENT; Oxygen Saturation ABG 98.1; PO2 ABG 98.8 mmHg (80.0-100.0); Potassium Level - ABG 4.2 mmol/L (3.5-5.0); Total Hemoglobin 13.4 g/dL (12-16)
[2022-09-18 03:48] LABS: Glucose Point of Care 94 mg/dL (70-110)
[2022-09-18] MEDS: silver sulfadiazine cream 1% 50 gm 1 APPLIC TOPICAL ×2 (05:24→21:55)
[2022-09-18 07:48] LABS: Glucose Point of Care 82 mg/dL (70-110)
[2022-09-18] MEDS: budesonide 0.5 mg/2 mL Neb INHALATION ×2 (07:51→20:21)
[2022-09-18] MEDS: hydrocortisone 100 mg/2 mL SDV IVP ×2 (08:27→21:53)
[2022-09-18] MEDS: metOLazone 5 MG Tablet PO (08:27)
[2022-09-18] MEDS: docusate sodium 10 mg/mL (5ml) Liq 50 MG PO (08:27)
[2022-09-18] MEDS: levothyroxine 100 mcg SDV 50 MCG IVP (08:28)
[2022-09-18] MEDS: pantoprazole 40 mg SDV IVP (09:21)
[2022-09-18 09:32] LABS: Partial Thromboplastin Time 63.4 SECONDS (23.9-36.7)
[2022-09-18] MEDS: heparin drip 25,000 UNIT/500 ML PREMIX 47 UNIT IV (09:39)
[2022-09-18 12:51] LABS: Glucose Point of Care 99 mg/dL (70-110)
[2022-09-18] MEDS: vancomycin 1,000 MG in sodium chloride 0.9% 250 ML 250 MG IV (15:40)
[2022-09-18 16:09] LABS: Glucose Point of Care 101 mg/dL (70-110)
--- NOTE | 2022-09-18 16:23 | PM.PN ---
Subjective Subjective: No acute events overnight. Patient has remained hemodynamically stable and afebrile. Off pressors. Currently on 200 of fentanyl and 6 of Versed. Ventilator setting of FiO2 of 50%, tidal volume of 420 with PEEP of 16 and rate of 22. ABG appreciated. During the day patient tolerated SIMV mode for around 3 hours. FiO2 turned down to 45% with PEEP of 14. Continued on heparin drip. Family at bedside. Did not get dialysis yesterday. Urine output in last 24 hours of around 650 cc. Underwent dialysis today with ultrafiltrate of 2600 cc. Vitals/I&O/Wt Last Vital Signs Temp 98.0 F 09/18/22 16:00 Pulse 76 09/18/22 16:00 Resp 22 H 09/18/22 16:00 BP 109/56 09/18/22 16:00 Pulse Ox 95 09/18/22 16:00 O2 Del Method 09/18/22 16:00 O2 Flow Rate 6 09/08/22 09:00 FiO2 50 09/18/22 16:00 09/18/22 09/18/22 09/18/22 06:59 14:59 22:59 Intake Total 300 / 1382.966 700 / 700 Output Total 300 / 650 350 / 350 Balance 0 / 732.966 350 / 350 Weight last 48 hrs Weight 170.097 kg Weight 170.233 kg Weight 172.9 kg Physical Exam Narrative: Intubated sedated on mechanical ventilation. Well sedated today Const: COMMON NORMALS: patient oriented x3 HENMT: COMMON NORMALS: normocephalic, atraumatic and hearing grossly normal bilaterally HEAD & SCALP: normocephalic and atraumatic Resp: COMMON NORMALS: clear to auscultation bilaterally AUSCULTATION: clear to auscultation bilaterally OTHER: Diminished air entry bilaterally mostly in the left lower lobe Cardio: COMMON NORMALS: regular rate, regular rhythm, S1 normal heart sound present, S2 normal heart sound present, No gallops present (Cardio), No murmurs present (Cardio), No rub (Cardio) and Peripheral pulses 2+ throughout RATE: regular rate RHYTHM: regular rhythm HEART SOUNDS: S1 normal heart sound present and S2 normal heart sound present PERIPHERAL PULSES: Peripheral pulses 2+ throughout GI: COMMON NORMALS: Normal to inspection, nondistended, normoactive bowel sounds present, Soft to palpation, non-tender, No hepatosplenomegaly present and no masses AUSCULTATION: Yes normoactive bowel sounds PALPATION: Yes Soft to palpation and Yes No hepatosplenomegaly present RECTAL EXAM: deferred Extremity: COMMON NORMALS: no clubbing, cyanosis or edema and no pedal edema Neuro: COMMON NORMALS: patient oriented x3 Skin: OTHER: Blister present in right dorsum of the hand secondary to infiltration earlier in the admission which has popped now. Urinary Catheter Management: Cha: Cath Placed During This Visit: yes Reason for Continuing Indwelling Catheter: Accurate Measurement of Urinary Output in Critically Ill Patients Urinary Catheter Date of Insertion: 09/08/22 Urinary Catheter Time of Insertion: 10:29 Data 09/18/22 02:08 09/18/22 02:08 Micro: Microbiology 09/17/22 16:30 Urine Culture - Preliminary Urine Catheterized 09/16/22 13:27 Blood Culture - Preliminary Blood 09/16/22 11:07 Blood Culture - Preliminary Blood NEGATIVE TO DATE A&P Assessment and plan (1) ARDS (adult respiratory distress syndrome): (2) Shock: (3) Acute respiratory failure with hypoxia and hypercapnia: (4) Obstructive sleep apnea: (5) CHF (congestive heart failure): Qualifiers: Heart failure type: diastolic Heart failure chronicity: acute on chronic Qualified Code(s): I50.33 - Acute on chronic diastolic (congestive) heart failure (6) Dialysis patient: (7) Acute kidney injury: (8) S/P bronchoscopy with bronchoalveolar lavage: On 09/13. Encountered high mucus in left lower lobe. Follow cultures. Patient desaturated during procedures to high 70s and low 80s but otherwise tolerated procedure well. (9) Pneumonia: (10) Sepsis: (11) Flash pulmonary edema: (12) Hypertensive emergency: (13) Essential hypertension: (14) Fever: (15) Goals of care, counseling/discussion: (16) Ventilator dependent: Plan 42 year old female with known past medical history of hypertension noncompliant with antihypertensive medication, morbid obesity, was accepted as a direct transfer, she was initially admitted for the management of substernal chest pain, associated with acute onset of worsening shortness of breath. Assessment: ARDS: Hypoxic and hypercapnic respiratory failure: Currently intubated. Most likely in setting of decompensated congestive heart failure in setting of hypertensive emergency and acute kidney dysfunction in setting of obstructive sleep apnea and possible pneumonia. Continue current ventilator setting with repeat ABG in AM. Continue with Bumex to 2 mg 3 times daily. Patient getting more negative every day with dialysis now. Negative around 9.5 L today. If oxygenation continues to improve can plan for possible weaning trial in next 24 to 48 hours. Fluid restriction as much as possible. Not able to maintain fluid restriction given the amount of IV fluids patient is getting because of sedation and pressor support. Hold off on tube feeds for now to reduce fluid intake. Will request to continue with dialysis. Appreciate CTA results. Concern for fluid overload with possible mucous and left lower lobe for which she underwent bronchoscopy. Poor study for pulmonary embolism given movement artifacts. Repeat D-dimer still elevated and given patient requiring high oxygen supplementation even after maximum treatment for now we will continue with heparin drip while monitoring for drop in hemoglobin. Monitor daily weights. Echocardiogram done during hospitalization shows EF of 60% with grade 1 diastolic dysfunction. Patient will need an outpatient sleep study to quantify sleep apnea. Patient will most likely need to be extubated and discharged on BiPAP. Fever: New fevers in last 24 hours going up to 101.3 Fahrenheit. Antibiotics recently stopped. Repeat blood cultures. Multiple lines all done within the last 1 week. Urinalysis and urine culture. For now empirically start patient on vancomycin and Zosyn. Previously blood cultures so far negative. Bronc cultures negative. Urine Legionella, bacterial antigen negative. Urine culture benign. Sputum culture negative. MRSA swab negative. Vancomycin stopped on 09/11, Zosyn last dose on 09/14. BRIDGETTE : Slight metabolic acidosis today. Possibly secondary to ATN secondary to sepsis, in the setting of acute hypotension, versus possibly secondary to antihypertensive effects. Possible contrast-induced nephropathy as she has received a CTA recently, possible AIN Continue daily dialysis for now. Bumex 2 mg every 8 hourly. Appreciate nephrology recommendations. Continue daily dialysis. Given patient being ventilator dependent with difficult extubation given multiple comorbidities it would be best for patient to be as net negative as possible. Sepsis secondary to hospital-acquired pneumonia: Currently septic versus cardiogenic shock. Sepsis during admission which was ruled in with elevated white cell count, hypotensive, target organ dysfunction with increasing oxygen requirement and eventual intubation, need for vasopressor support, x-ray chest showing possible infiltrates. Wean Levophed while keeping mean arterial pressure over 65. Saturation over 92%. Continue with sedation with fentanyl and Versed for now. Subclinical hypothyroidism: TSH still elevated. Free T4 levels below normal. Check cortisol were suboptimally normal. Patient started on stress dose steroids with hydrocortisone 100 mg every 6 hourly. Will monitor response and plan to wean gradually. Monitor blood sugars. Hypertension with hypertensive emergency with flash pulmonary edema on admission: Resolved Blood pressure is better controlled. We will continue to monitor blood pressures and start treatment accordingly. Goal blood pressure less than 140/ 90 mmHg with mean over 65 Right upper extremity swelling: DVT ruled out. Does have blister on the dorsum of right hand due to infiltration of IV antibiotics. Continue to monitor. Sedation: Versed and fentanyl Glycemic control: Hypoglycemia protocol Nutrition: Hold off on tube feeds for now to restrict fluid intake. Was on goal of 60 cc/h. CODE STATUS: Discussed in detail with patient mother and who is the DPOA at bedside. Patient is full code. We discussed need for dialysis for quick improvement. Family verbalized understanding and are agreeable. PUD prophylaxis: Protonix DVT prophylaxis:Heparin 5000 SQ Q8h Discharge planning: We will plan on discharge to home versus SNF as per clinical improvement going forward once patient is extubated. Patient will need sleep study as an outpatient and possible discharge on BiPAP. Continue with care at ICU Plan for the day: Continue with current ventilator settings of tidal volume 420, PEEP of 45, FiO2 45 %. Repeat ABG in AM. We will plan to come down on PEEP in AM. We will plan more SIMV tomorrow. Care discussed in detail with nephrology. Patient might need dialysis for around 2 to 3 months going forward. We will try to involve surgery for permacath placement. Monitor hemodynamics. Holding off on Levophed as mean artery pressure is maintained over 65. Repeat cultures so far negative. Continue with empiric vancomycin and Zosyn. Appreciate urinalysis from yesterday. Catheter being changed. 09/17: Had a detailed discussion with patient's and mother at bedside. We discussed that patient is improving a bit with current management and oxygen supplementation are coming down but she continues to remain critically ill [place] and she is on ventilator, high PEEP and and dialysis. We did discuss that if she continues to improve we can do a weaning trial once PEEP also comes down versus possibility of transfer to LTAC as patient will require prolonged weaning trial. All the questions were answered. 09/14: Had family discussion with patient's mother, and father at bedside. We discussed that unfortunately even after the maximum treatment including dialysis, high ventilator settings patient continues to require high oxygen supplementation which is most likely secondary to baseline severe and diagnosed obstructive sleep apnea, morbid obesity leading to restrictive lung disease, diastolic heart failure and severe acute kidney injury requiring dialysis which is restricting the treatment. We discussed given the severe obstructive sleep apnea it is being difficult to decrease the ventilator settings for the patient and currently patient is going into ARDS. We discussed what patient might benefit from would be proning and paralyzing but unfortunately given her body habitus it is impossible at our hospital to do proning as we do not have the beds required for proning in severely morbid obese patient. We also discussed that is difficult to transfer the patient as it is unsafe given the 100% FiO2 requirement currently. We discussed that we can go higher on the PEEP but that would put her at a higher risk of possible pneumothorax. Family verbalized understanding and understand the risks involved with the possibility of increasing the PEEP and given the limited options they are agreeable for the same. They are thankful for the care patient is receiving at the hospital. They understand that patient is critically sick and even if she improves there is a high chance that she will remain on a ventilator for some time going forward and might need to go to LTAC also if and when she improves. This documentation was created by [employer] geospatial developer software. Every effort was made to ensure accuracy of geospatial developer. Any obvious errors or omissions should be clarified with the author of the document. Attestations Medical Necessity Statement*: Requires further hospitalization for management of ARDS, hypoxic and hypercapnic respiratory failure in setting of obstructive sleep apnea, congestive heart failure, BRIDGETTE requiring daily dialysis as patient remains ventilator dependent which is being gradually weaned down Procedures Arterial Line Size (Gauge): 20 Coding Level of Care Code Critical Care >/= 30 minutes Critical care time (in minutes): 90 The high probability of a clinically significant, sudden or life threatening deterioration, as referenced in this documentation, required my full and direct attention, intervention and personal management. The critical care time shown is in addition to time spent performing any reported separately billable procedures and includes the following: [x] Data and vital sign review and interpretation [x] Patient assessment, examination and intervention [x] Medication orders and management [x] Patient/Family updates as able [x] Care Coordination and Documentation. Other Coding Information This patient has a high probability of clinically significant, sudden or life threatening deterioration of the patient's (neurological/pulmonary/cardiac/renal/ID/endocrine) systems required my full, direct attention, the highest level of physician preparedness for urgent intervention and personal management. I managed/supervised life or organ supporting interventions that required frequent physician assessment. I devoted my full attention in the ICU to the direct care of this patient for the period of time indicated above. Time I spent with family or surrogate(s) is included only if the patient was incapable of providing necessary information or participating in decision making. This time includes the following services provided: Telemetry review Mechanical Ventilation Hemodynamic interpretation, assessment and management Review and interpretation of CXR Review and interpretation of lab values Review and interpretation of microbiologic data and culture results Review of medications and administration Review and interpretation of Nutrition requirements and management Discussion of management with other consultants and services Clinical update to family members Diagnoses ARDS (adult respiratory distress syndrome) J80 Shock R57.9 Acute respiratory failure with hypoxia and hypercapnia J96.01; J96.02 Obstructive sleep apnea G47.33 CHF (congestive heart failure) I50.33 Heart failure type: diastolic Heart failure chronicity: acute on chronic Dialysis patient Z99.2 Acute kidney injury N17.9 S/P bronchoscopy with bronchoalveolar lavage Z98.890 Pneumonia J18.9 Sepsis A41.9 Flash pulmonary edema J81.0 Hypertensive emergency I16.1 Essential hypertension I10 Fever R50.9 Goals of care, counseling/discussion Z71.89 Ventilator dependent Z99.11
--- NOTE | 2022-09-18 19:41 | P.PN_ITS ---
Subjective Subjective: Patient seen at bedside Patient down to 45% FiO2 and PEEP of 14-tolerated SIMV for few hours today -No more fever spikes; cultures still pending Other labs and imaging reviewed Medications: Reviewed: Yes Medication Review Details: Generic Name Dose Route Start Last Admin Trade Name Freq PRN Reason Stop Dose Admin Acetaminophen 650 mg 09/06/22 10:41 09/07/22 04:50 Acetaminophen 32 5 Mg Tablet PO 650 mg Q6H PRN Administration Mild/Mod Pain Or Temp >/= 101 Albuterol/Ipratrop ium 3 ml 09/06/22 10:45 09/10/22 08:21 Ipratropium-Albu terol 3 Ml Neb INHALATION 3 ml Q6H.RESP PRN Administration SHORTNESS OF KVNG TH Chlorhexidine Gluc millie 1 applic 09/10/22 01:00 09/10/22 04:17 Chlorhexidine Gl uconate 4% Btl 118 Ml TOPICAL Not Given 0100 STERLING Heparin Sodium (Po rcine) 5,000 unit 09/06/22 10:45 09/10/22 11:01 Heparin 5,000 Un it/Ml Inj 1 Ml SUBCUT 5,000 unit Q8H [place] Administration Norepinephrine Bit artrate 4 mg 254 mls @ 0 mls/h r 09/07/22 22:30 09/08/22 13:45 / Dextrose IV Infused .Q0M [place] Titration Protocol Per Protocol Norepinephrine Bit artrate 8 mg 508 mls @ 0 mls/h r 09/08/22 11:30 09/09/22 10:04 / Dextrose IV 0 mcg/min .Q0M STER[place]ING 0 mls/hr Titration Protocol Per Protocol Propofol 1,000 mg in 100 m ls @ 0 mls/hr 09/09/22 03:45 09/10/22 08:33 Diprivan IV 30 mcg/kg/min .Q0M ST[place] 31.14 mls/hr Administration Protocol Per Protocol Fentanyl 2,500 mcg / Sodium 250 mls @ 0 mls/h r 09/09/22 04:45 09/09/22 13:56 Chloride IV 30 mcg/hr .Q0M ST[place] 3 mls/hr Titration Protocol Per Protocol Piperacillin Sod/T azobactam 50 mls @ 12.5 mls /hr 09/10/22 08:00 09/10/22 07:58 Sod 2.25 gm/ Sod ium Chloride IV 12.5 mls/hr Q8H [place] Administration Ondansetron HCl 4 mg 09/06/22 10:41 09/08/22 16:34 Ondansetron 2 Mg /Ml Sdv 2 Ml IVP 4 mg Q8H PRN Administration vomiting, or N/V if npo Vitals/I&O/Wt Last Vital Signs Temp 97.9 F 09/18/22 17:11 Pulse 70 09/18/22 17:42 Resp 22 H 09/18/22 18:07 BP 123/63 09/18/22 17:42 Pulse Ox 93 09/18/22 18:07 O2 Del Method 09/18/22 17:42 O2 Flow Rate 6 09/08/22 09:00 FiO2 45 09/18/22 18:07 09/18/22 09/18/22 09/18/22 06:59 14:59 22:59 Intake Total 300 / 1382.966 700 / 700 1300 / 2000 Output Total 300 / 650 350 / 350 3550 / 3900 Balance 0 / 732.966 350 / 350 -2250 / -1900 Weight last 48 hrs Weight 376 lb 12.32 oz Weight 375 lb Weight 375 lb 4.8 oz Weight 381 lb 2.868 oz Physical Exam Narrative: PHYSICAL EXAM: General: Morbidly obese, young female, lying in bed, sedated and intubated. HEENT:NCAT, PERRLA, EOMI Neck: Supple Lungs: Bilateral diffuse crackles Heart: s1/s2, RRR Abd: soft, NT, ND, BS + Normoactive Extremities: No edema, right forearm infiltrated MUD GRINDER: sedated and limited MUD GRINDER exam possible. SKIN: no rash LDA: # HD Cath : Right IJ 09/11/2022 # A line: 09/08/2022 left radial artery #CVC: Right femoral line 09/08/2022 Urinary Catheter Management: Cha: Cath Placed During This Visit: yes Reason for Continuing Indwelling Catheter: Accurate Measurement of Urinary Output in Critically Ill Patients Urinary Catheter Date of Insertion: 09/08/22 Urinary Catheter Time of Insertion: 10:29 Data 09/18/22 02:08 09/18/22 02:08 Other Labs: Radiology Impressions Duplex Scan Upper Extremity Artery 09/08/22 20:22 IMPRESSION: 1. No evidence for major vessel occlusion or significant stenosis. 2. Other details discussed above. Venous Duplex 09/08/22 20:31 IMPRESSION: No evidence of acute right upper extremity DVT. Renal Ultrasound 09/09/22 05:33 IMPRESSION: 1. No hydronephrosis of either kidney. 2. Technologist notes somewhat limited evaluation of the kidneys, due to patient condition and body habitus. 3. Other details discussed above. Chest CTA 09/13/22 10:26 IMPRESSION: 1. Very limited exam due to artifact from CT bore contact. 2. Nondiagnostic evaluation of the pulmonary arteries. 3. Complete atelectasis of both lower lobes and partial atelectasis of the left upper lobe. 4. Cardiac enlargement. 5. Enlarged main pulmonary artery suggests pulmonary hypertension. 6. Lexus hepatis and gastrohepatic ligament lymphadenopathy is partially imaged. Recommend follow-up abdomen pelvis CT. 7. Satisfactory position of lines and tubes. Chest X-Ray 09/17/22 09:12 IMPRESSION: 1. Tubes and lines in satisfactory position. 2. Technically limited assessment of the lung figueroa. Questionable right infrahilar infiltrate. Laboratory Results WBC 8.4 10^3/uL (4.0-10.0) 09/18/22 02:08 RBC 4.31 10^6/uL (4.1-5.3) 09/18/22 02:08 Hgb 12.0 g/dL (11.5-15.3) 09/18/22 02:08 Hct 38.4 % (37.0-47.0) 09/18/22 02:08 MCV 89.1 fl (81-99) 09/18/22 02:08 MCH 27.8 pg (28.0-34.0) L 09/18/22 02:08 MCHC 31.3 g/dL (30.0-36.0) 09/18/22 02:08 RDW 13.4 % (12.1-15.1) 09/18/22 02:08 Plt Count 198 10^3/cmm (130-400) 09/18/22 02:08 MPV 9.0 fL (7.4-10.4) 09/18/22 02:08 Neut % (Auto) 80.8 % 09/18/22 02:08 Lymph % (Auto) 11.8 % 09/18/22 02:08 [place] % (Auto) 5.9 % 09/18/22 02:08 Eos % (Auto) 0.1 % 09/18/22 02:08 Baso % (Auto) 0.6 % 09/18/22 02:08 Neut # (Auto) 6.80 10^3/uL (1.8-7.7) 09/18/22 02:08 Lymph # (Auto) 1.0 10^3/uL (0.8-4.8) 09/18/22 02:08 [place] # (Auto) 0.5 10^3/uL (0.2-0.9) 09/18/22 02:08 Eos # (Auto) 0.0 10^3/uL (0.0-0.8) 09/18/22 02:08 Baso # (Auto) 0.1 10^3/uL (0.0-0.1) 09/18/22 02:08 Nucleated RBC % (auto) 0 % 09/18/22 02:08 Nucleated RBCs # 0.0 /100WBC 09/18/22 02:08 APTT 63.4 SECONDS (23.9-36.7) H 09/18/22 09:15 D-Dimer 3.78 ug/mIFEU (0-0.59) H 09/15/22 17:57 Specimen Type Arterial 09/18/22 04:00 Sample Site Radial, right 09/18/22 04:00 ABG pH 7.35 (7.35-7.45) 09/18/22 04:00 ABG pCO2 39.2 mmHg (35-45) 09/18/22 04:00 ABG pO2 98.8 mmHg (80.0-100.0) 09/18/22 04:00 ABG HCO3 21.5 mmol/L (22-26) L 09/18/22 04:00 ABG O2 Saturation 98.1 09/18/22 04:00 ABG Base Excess -3.9 mmol/L (-2.0-2.0) L 09/18/22 04:00 [place] Test Pos 09/18/22 04:00 A-a O2 Gradient 27.1 mmHg (5-10) H 09/18/22 04:00 Hematocrit 40.9 % (37-47) 09/18/22 04:00 Hgb O2 Saturation 96.3 % (95-100) 09/18/22 04:00 Carboxyhemoglobin 1.0 %THgb (0.4-20.1) 09/18/22 04:00 Methemoglobin 0.9 % (0.4-1.5) 09/18/22 04:00 Total Hemoglobin 13.4 g/dL (12-16) 09/18/22 04:00 Sodium 139.0 mmol/L (131-143) 09/18/22 04:00 Potassium 4.2 mmol/L (3.5-5.0) 09/18/22 04:00 Glucose 92.0 mg/dL (70-115) 09/18/22 04:00 Ionized Calcium 1.3 mmol/L (1.1-1.4) 09/18/22 04:00 O2 Delivery Device Vent 09/18/22 04:00 O2 Liters/Min 7.0 % 09/08/22 15:57 FiO2 50.0 % 09/18/22 04:00 Tidal Volume 0.42 09/18/22 04:00 PEEP 16.0 cmH20 09/18/22 04:00 Marketing Community Liaison ID [email or web address] 09/18/22 04:00 Sodium 141 mmol/L (136-145) 09/18/22 02:08 Potassium 3.8 mmol/L (3.5-5.1) 09/18/22 02:08 Chloride 104 mmol/L (98-107) 09/18/22 02:08 Carbon Dioxide 17 mmol/L (22-29) L 09/18/22 02:08 Anion Gap 23.8 (5-19) H 09/18/22 02:08 BUN 62 mg/dL (6-20) H 09/18/22 02:08 Creatinine 5.0 mg/dL (0.5-0.9) H 09/18/22 02:08 GFR Calculation 9.5 mL/min (90-130) L 09/18/22 02:08 Glucose 84 mg/dL (65-115) 09/18/22 02:08 POC Glucose 101 mg/dL (70-110) 09/18/22 16:06 Estimat Average Glucose 114 09/12/22 03:59 Hemoglobin A1c 5.6 % (4.0-6.0) 09/12/22 03:59 Calculated Osmolality 309 mOsm/kg (285-295) H 09/18/22 02:08 Lactic Acid 1.6 mmol/L (0.5-2.2) 09/08/22 09:06 Calcium 8.6 mg/dL (8.5-10.5) 09/18/22 02:08 Phosphorus 5.9 mg/dL (2.5-4.5) H 09/11/22 05:57 Magnesium 2.1 mg/dL (1.7-2.3) 09/07/22 04:38 Iron 46 ug/dL (37-145) 09/11/22 05:57 TIBC 271 mcg/dl 09/11/22 05:57 % Saturation 16.9 % (20-50) L 09/11/22 05:57 Unsat Iron Binding 225 ug/dL (112-347) 09/11/22 05:57 Total Bilirubin 0.4 mg/dL (0.15-1.2) 09/18/22 02:08 AST 19 U/L (0-32) 09/18/22 02:08 ALT 17 U/L (0-33) 09/18/22 02:08 Alkaline Phosphatase 49 U/L (35-105) 09/18/22 02:08 Creatine Kinase 225 U/L (26-192) H 09/10/22 03:30 CK-MB (CK-2) 14.9 ng/mL (0-5.34) H 09/10/22 03:30 CK-MB (CK-2) Rel Index 6.6 % (0.0-10.4) 09/10/22 03:30 NT-Pro-B Natriuret Pep 1494 pg/mL (0-125) H 09/11/22 05:57 Total Protein 6.3 g/dL (6.6-8.7) L 09/18/22 02:08 Albumin 3.4 g/dL (3.5-5.2) L 09/18/22 02:08 Globulin 2.9 g/dL (1.3-4.6) 09/18/22 02:08 Triglycerides 313 mg/dL (0-150) H 09/12/22 03:59 Cholesterol 140 mg/dL (0-200) 09/12/22 03:59 LDL Cholesterol, Calc 49 mg/dL (50-129) L 09/12/22 03:59 Total VLDL Cholesterol 63 mg/dL (0-30) H 09/12/22 03:59 HDL Cholesterol 28 mg/dL (60-100) L 09/12/22 03:59 Cholesterol/HDL Ratio 5.00 mg/dL (0.0-4.40) H 09/12/22 03:59 Vitamin B12 514 pg/mL (232-1245) 09/11/22 05:57 Folate 8.9 ng/mL (4.8-37.3) 09/11/22 05:57 Procalcitonin 0.35 ng/mL (0-0.5) 09/08/22 09:06 TSH 18.45 uIU/mL (0.27-4.20) H 09/15/22 02:38 Free T4 0.60 ng/dL (0.82-1.77) L 09/15/22 02:38 Free T3 2.2 PG/ML (2.0-4.4) 09/11/22 05:57 Random Cortisol 2.67 ug/dL (2.47-19.5) 09/15/22 02:38 Urine Color Yellow (Yellow) 09/17/22 12:15 Urine Appearance Hazy (CLEAR) A 09/17/22 12:15 Urine pH 8 (5-7) H 09/17/22 12:15 Ur Specific [place] 1.010 (1.005-1.030) 09/17/22 12:15 Urine Protein Trace (Negative) 09/17/22 12:15 Urine Glucose (UA) Norm (Normal) 09/17/22 12:15 Urine Ketones Negative (Negative) 09/17/22 12:15 Urine Blood 3+ (Negative) H 09/17/22 12:15 Urine Nitrate Negative (Negative) 09/17/22 12:15 Urine Bilirubin Neg (Negative) 09/17/22 12:15 Prot Sulfosalicylic Acd Positive (Negative) 09/17/22 12:15 Urine Urobilinogen Norm mg/dL (Negative) 09/17/22 12:15 Ur Leukocyte Esterase 2+ (Negative) H 09/17/22 12:15 Urine RBC 25-40 /hpf (0-2) H 09/17/22 12:15 Urine WBC 55-80 /hpf (0-5) H 09/17/22 12:15 Ur Squamous Epith Cells 25-40 /hpf (0-5) H 09/17/22 12:15 Ur Transition Epith Cell 0-4 /hpf 09/10/22 12:30 Amorphous Sediment Not Reportable 09/17/22 12:15 Urine Bacteria 2+ /hpf (NONE) H 09/17/22 12:15 Urine Yeast 2+ /hpf H 09/17/22 12:15 Ur Random Sodium 93 mmol/L 09/09/22 01:10 Urine Creatinine 51 mg/dL (28-217) 09/09/22 01:10 Nasal Influ A H1 2008 PCR Not detected (NOT DETECT) 09/08/22 08:45 Bronch Specimen Source Left lower lobe 09/13/22 18:40 Bronchial Fluid Color Red 09/13/22 18:40 Bronchial Fluid Appearance Bloody (CLEAR) 09/13/22 18:40 Bronchial Fluid WBC 1361 /uL 09/13/22 18:40 Bronchial Fluid RBC 900 10^3/uL 09/13/22 18:40 Bronch Cells Counted 200 09/13/22 18:40 Bronchial Neutrophils 72.00 % (0.9-2.3) H 09/13/22 18:40 Bronchial Lymphocytes 26.00 % (10.71-12.91) H 09/13/22 18:40 Bronchial Eosinophils 1.00 % (0.13-0.25) H 09/13/22 18:40 Bronchial Macrophages 1.00 % (83.6-86.8) L 09/13/22 18:40 Bronchial Diff Comment Yes 09/13/22 18:40 Random Vancomycin 18.7 ug/mL (20.0-40.0) L 09/12/22 03:59 Adenovirus (PCR) Not detected (NOT DETECT) 09/08/22 08:45 C. pneumoniae DNA (PCR) Not detected (NOT DETECT) 09/08/22 08:45 Coronavirus 229E (PCR) Not detected (NOT DETECT) 09/08/22 08:45 Hepatitis A IgM Ab Non-reactive (Nonreactive) 09/11/22 05:57 Hep Bs Antigen Non-reactive (Nonreactive) 09/11/22 05:57 Hep Bs Antibody 12.8 (11.5-1000) 09/11/22 05:57 Hep B Core Total Ab Non-reactive (Nonreactive) 09/11/22 05:57 Hepatitis C Antibody Non-reactive (Nonreactive) 09/11/22 05:57 Human Metapneumovir PCR Not detected (NOT DETECT) 09/08/22 08:45 Influenza A (H1) PCR Not detected (NOT DETECT) 09/08/22 08:45 Influenza A (H3) PCR Not detected (NOT DETECT) 09/08/22 08:45 Influenza Type A (PCR) Not detected (NOT DETECT) 09/08/22 08:45 Influenza Type B (PCR) Not detected (NOT DETECT) 09/08/22 08:45 M. pneumoniae (PCR) Not detected (NOT DETECT) 09/08/22 08:45 Parainfluenza 1 (PCR) Not detected (NOT DETECT) 09/08/22 08:45 Parainfluenza 2 (PCR) Not detected (NOT DETECT) 09/08/22 08:45 Parainfluenza 3 (PCR) Not detected (NOT DETECT) 09/08/22 08:45 Parainfluenza 4 (PCR) Not detected (NOT DETECT) 09/08/22 08:45 RSV Type A (PCR) Not detected (NOT DETECT) 09/08/22 08:45 RSV Type B (PCR) Not detected (NOT DETECT) 09/08/22 08:45 Entero/Rhino (PCR) Not detected (NOT DETECT) 09/08/22 08:45 SARS-CoV-2 (PCR) Not detected (NOT DETECT) 09/08/22 08:45 Micro: Microbiology 09/17/22 16:30 Urine Culture - Preliminary Urine Catheterized 09/16/22 13:27 Blood Culture - Preliminary Blood 09/16/22 11:07 Blood Culture - Preliminary Blood NEGATIVE TO DATE A&P Assessment and plan (1) Acute respiratory failure with hypoxia and hypercapnia: (2) Obstructive sleep apnea: (3) Pneumonia: (4) Flash pulmonary edema: (5) Acute kidney injury: (6) ARDS (adult respiratory distress syndrome): Plan ASSESSMENT/PLAN:Overall: 42-year-old young female with past medical history of hypertension-noncompliant with her medications-initially comes with hypertensive emergency with flash pulmonary edema-treated with nicardipine drip-becomes hypotensive-started on pressors and antibiotics for presumed sepsis. She went into respiratory failure requiring mechanical ventilation support. She also developed BRIDGETTE requiring temporary hemodialysis. NEURO: #Sedation-currently on fentanyl and Versed gtt. -Adjust to maintain RASS -2 PULM: #Acute hypoxic and hypercapnic respiratory failure-probably there is a chronic component given her morbid obesity #?? Possible ARDS -Acute component secondary to flash pulmonary edema due to hypertensive emergency - -FiO2 requirement nicely coming down currently at 45%; PEEP down to 14-patient tolerated SIMV today -We will continue to taper down FiO2/PEEP requirements -We will continue to monitor with serial ABG -She underwent CTA for increasing oxygen requirements-there was a lot of motion artifact and CT was nondiagnostic for pulmonary arteries. There is moderate cardiac enlargement and enlarged main pulmonary artery suggesting pulmonary hypertension. There was partial atelectasis of left upper lobe and complete atelectasis of both lower lobes. -Currently receiving IV heparin as patient had persistent hypoxemia and CTA was nondiagnostic-oxygenation started to improve -She underwent bronchoscopic evaluation for airways 09/13/2022-there were thick mucus secretions in bilateral lower lobes which were suctioned-BAL neutrophils predominant-final cultures negative -She is on scheduled nebulization with DuoNeb as well as Pulmicort -Currently she is on Bumex 2 Mg Q8 over follow-up fluid overload-and temporary hemodialysis as per renal team -We will continue with awakening and breathing trials once FiO2 is down to 45% CVS: #Hypertensive emergency-treated with nicardipine drip-resolved #Circulatory shock-likely secondary to possible nicotine toxicity or demand ischemia due to underlying? Sepsis -Currently requiring intermittently requiring Levophed -Echocardiogram during admission showed normal LV size, systolic function with EF 60%. Grade 1 diastolic dysfunction. -Elevated BNP -We will continue with Bumex 2 Mg every 8 hours and fluid removal through temporary hemodialysis -Continue close hemodynamic and cardiac monitoring GI: #Diet: Recommended TF nephro #GI prophylaxis: PPI #LFTs: elevated - monitor RENAL: #BRIDGETTE-most likely prerenal secondary to ischemic ATN due to hypotension/? Contrast-induced nephropathy -- Currently on daily hemodialysis for 3 hours as per renal team to achieve net negative fluid balance -Electrolytes are acceptable but her BUN/creatinine kind of plateaued and unfortunately her urine output is not very encouraging which could also be due to at least 3 L being taken out through dialysis -Currently on Bumex 2 Mg 3 times daily -She is requiring almost daily hemodialysis-I am anticipating she may may be dependent on hemodialysis for neck several days-nephrology on board and if they agree-we will consult general surgery for tunneled hemodialysis catheter placement HEM: #Leukocytosis-improving #H&H stable #Normal platelets ENDO: #Significantly elevated TSH-suspect hypothyroidism-patient on levothyroxine 50 mcg q. p.o. daily-she may need to follow-up as outpatient #Normal blood sugars #Possible underlying adrenal insufficiency-currently on stress dose steroids ID: #Presumably met sepsis criteria #Low-grade temperature spikes- -Pulmonary infiltrates on imaging-with leukocytosis-and hypotension-there was a suspicion if it is all septic shock secondary to pneumonia; -However infiltrates can be explained with fluid overload, hypotension secondary to need Cardene drip -Patient procalcitonin is low -Repeat blood cultures sent today 09/16/22 -pending -Back on vancomycin and Zosyn -BAL neutrophil predominance-final cultures negative Code Status: Full code Disposition: ICU Critically ill: Yes MD discussed with: Hospitalist, RN, RT taking care of the patient ICU CHECKLIST: Problem list updated Verbal orders reviewed and signed Analgesia: Fentanyl Glycemic Control: N/A Nutrition: TF nephro Restraint Renewal (within 24 hrs): Yes Ulcer Prophylaxis: PPI Chemical Thromboprophylaxis: Prophylaxis: Heparin Mechanical Thromboprophylaxis: SCDs Need for Central line: Yes for multiple medications Need for Cha catheter: Yes for urine output monitoring Attestations Medical Necessity Statement*: Acute hypoxic/hypercapnic respiratory failure secondary to fluid overload due to hypertensive emergency-requiring mechanical ventilation; will continue to monitor at least 48 hours in ICU Critical Care Time: This patient has a high probability of? clinically sig nificant, sudden o r life threatening deterioration of the patient's (jonathan rological/pulmonar y/cardiac/renal/ID /endocrine) system s required my full , direct attention , the highest leve l of physician pre paredness for urge nt intervention an d personal managem ent.? I managed/meade pervised life or o rgan supporting in terventions that r equired frequent p hysician assessmen t.? I devoted my f ull attention in t he ICU to the dire ct care of this pa tient for the kareen od of time indicat ed above.? Time I spent with family or surrogate(s) is included only if the patient was in capable of providi ng necessary infor mation or particip ating in decision making.? This annie e includes the [facility] services pr ovided: Telemetry review Mechanical Ventilation Hemod ynamic interpretat ion, assessment an d management Revie w and interpretati on of CXR Review a nd interpretation of lab values Revi ew and interpretat ion of microbiolog ic data and cultur e results Review o f medications and administration Rev iew and interpreta tion of Nutrition requirements and m anagement Discussi on of management w ith other consulta nts and services C linical update to family members [x ] Data and vital s ign review and int erpretation [x] Pa tiesherine assessment, examination and in tervention [x] Doc umentation [x] Med ication orders and management Time spent for teaching as well as perfor aydin procedures ar e billed separatel y and is not inclu ded in this note ? Critical Care Annie e (min): 52 Procedures Arterial Line Size (Gauge): 20 Coding Level of Care Code Critical Care >/= 30 minutes Diagnoses Acute respiratory failure with hypoxia and hypercapnia J96.01; J96.02 Obstructive sleep apnea G47.33 Pneumonia J18.9 Flash pulmonary edema J81.0 Acute kidney injury N17.9 ARDS (adult respiratory distress syndrome) J80 Time Spent (min) 52
--- NOTE | 2022-09-18 20:30 | PM.PN ---
Subjective Subjective: on 30 % fio2 Medications: Reviewed: Yes Vitals/I&O/Wt Last Vital Signs Temp 97.9 F 09/18/22 17:11 Pulse 76 09/18/22 20:21 Resp 22 H 09/18/22 20:21 BP 123/63 09/18/22 17:42 Pulse Ox 94 09/18/22 20:21 O2 Del Method 09/18/22 20:21 O2 Flow Rate 6 09/08/22 09:00 FiO2 45 09/18/22 20:21 09/18/22 09/18/22 09/18/22 06:59 14:59 22:59 Intake Total 300 / 1382.966 700 / 700 1300 / 2000 Output Total 300 / 650 350 / 350 3550 / 3900 Balance 0 / 732.966 350 / 350 -2250 / -1900 Weight last 48 hrs Weight 170.9 kg Weight 170.097 kg Weight 170.233 kg Weight 172.9 kg Physical Exam Urinary Catheter Management: Cha: Cath Placed During This Visit: yes Reason for Continuing Indwelling Catheter: Accurate Measurement of Urinary Output in Critically Ill Patients Urinary Catheter Date of Insertion: 09/08/22 Urinary Catheter Time of Insertion: 10:29 Data 09/18/22 02:08 09/18/22 02:08 Micro: Microbiology 09/17/22 16:30 Urine Culture - Preliminary Urine Catheterized 09/16/22 13:27 Blood Culture - Preliminary Blood 09/16/22 11:07 Blood Culture - Preliminary Blood NEGATIVE TO DATE A&P Assessment and plan (1) Acute kidney injury: Plan 1. Acute kidney injury. Different includes contrast nephropathy, sepsis, acute interstitial nephritis, hemodynamic. . Due to high O2 requirement and worsening renal function patient was started on HD. Would like to keep her on a negative fluid balance, s/p HD last today , eval daily for hD needs. baseline creatinine was normal prior to admission at 0.5. Expect pt would require HD for few weeks to months. can place tunnelled catheter 2. Volume overload:HD as above , on bumex 3. Primary respiratory acidosis, hypercapneic respiratory failure on ventilator, 4. sepsis with pneumonia 6. HTN Attestations Medical Necessity Statement*: Requires further hospitalization for persistent ARDS, ventilator dependent in a patient with morbid obesity, severe undiagnosed sleep apnea, BRIDGETTE requiring dialysis, septic shock Procedures Arterial Line Size (Gauge): 20 Coding Level of Care Code Acute Code for Chg Fwd Diagnoses Acute kidney injury N17.9
[2022-09-18] MEDS: heparin drip 25,000 UNIT/500 ML PREMIX 47.01 UNIT IV (20:45)
[2022-09-18] MEDS: artificial tears Op Oint 3.5 gm 1 APPLIC EYE-BOTH (21:55)
[2022-09-18 22:10] LABS: Glucose Point of Care 76 mg/dL (70-110)
[2022-09-19] VITALS (48 sets, daily range): BP systolic 75–187; BP diastolic 37–94; PULSE 67–89; RESP 18–25; TEMP 36.3–36.8; O2SAT 89–96; BMI 56.7
[2022-09-19] MEDS: piperacillin-tazobactam 3.375 GM in sodium chloride 0.9% (plus) 50 ML IV ×2 (00:24→14:54)
[2022-09-19] MEDS: chlorhexidine gluconate 4% Btl 118 mL 1 APPLIC TOPICAL (02:05)
[2022-09-19] MEDS: bumetanide 0.25 mg/mL SDV 10 mL 2 MG IVP ×3 (02:05→17:29)
[2022-09-19 02:19] LABS: Glucose Point of Care 92 mg/dL (70-110)
[2022-09-19 02:51] LABS: ABG PCO2 40.6 mmHg (35-45); ABG PH Result 7.34 (7.35-7.45); Arterial Blood Gas Hematocrit 42.7 % (37-47); Base Excess ABG -3.5 mmol/L (-2.0-2.0); Blood Gas Allen Test Pos; Blood Gas Sample Site Radial, left; Blood Gas Sample Type Arterial; Blood Gas Tidal Volume 0.42; Carboxyhemoglobin 1.2 %THgb (0.4-20.1); HGB O2 Sat 93.2 % (95-100); Ionized Calcium Level - ABG 1.2 mmol/L (1.1-1.4); Oxygen Device VENT; Oxygen Saturation ABG 95.3; PO2 ABG 79.4 mmHg (80.0-100.0); Total Hemoglobin 13.9 g/dL (12-16)
[2022-09-19] MEDS: ipratropium-albuterol 3 mL Neb INHALATION ×6 (03:04→23:50)
[2022-09-19 03:53] LABS: Basophils # 0.1 10^3/uL (0.0-0.1); Basophils % 0.6 %; Eosinophils # 0.1 10^3/uL (0.0-0.8); Eosinophils % 0.5 %; Hematocrit 41.1 % (37.0-47.0); Hemoglobin 13.1 g/dL (11.5-15.3); Lymphocytes # 1.1 10^3/uL (0.8-4.8); Lymphocytes % 11.1 %; Mean Corpuscular HGB Conc 31.9 g/dL (30.0-36.0); Mean Corpuscular Hemoglobin 27.7 pg (28.0-34.0); Mean Corpuscular Volume 86.9 fl (81-99); Mean Platelet Volume 9.5 fL (7.4-10.4); Monocytes # 0.6 10^3/uL (0.2-0.9); Monocytes % 6.3 %; Neutrophils # 8.06 10^3/uL (1.8-7.7); Neutrophils % 79.9 %; Nucleated Red Blood Cells % 0 %; Platelet Count 220 10^3/cmm (130-400); Red Blood Count 4.73 10^6/uL (4.1-5.3); Red Cell Distribution Width 13.4 % (12.1-15.1); White Blood Count 10.1 10^3/uL (4.0-10.0)
[2022-09-19 04:02] LABS: Partial Thromboplastin Time 58.3 SECONDS (23.9-36.7)
[2022-09-19 04:09] LABS: Alanine Aminotransferase 20 U/L (0-33); Albumin Level 3.9 g/dL (3.5-5.2); Alkaline Phosphatase 55 U/L (35-105); Anion Gap 24.2 (5-19); Aspartate Amino Transferase 17 U/L (0-32); Blood Urea Nitrogen 64 mg/dL (6-20); Calcium 10.1 mg/dL (8.5-10.5); Carbon Dioxide 20 mmol/L (22-29); Chloride 94 mmol/L (98-107); Globulin 3.2 g/dL (1.3-4.6); Glomerular Filtration Rate 10.4 mL/min (90-130); Glucose 98 mg/dL (65-115); Osmolality Calculated 296 mOsm/kg (285-295); Potassium 4.2 mmol/L (3.5-5.1); Sodium 134 mmol/L (136-145); Total Bilirubin 0.5 mg/dL (0.15-1.2); Total Protein 7.1 g/dL (6.6-8.7)
[2022-09-19 05:06] LABS: Vancomycin Random 19.5 ug/mL (20.0-40.0)
--- NOTE | 2022-09-19 06:00 | XR_ITS ---
WS: [id number] Exam: XR chest 1V portable [id number] Date/Time of Exam: 09/19/2022 6:05 AM Reason For Exam: intubated Compared to last exam 09/17/2022. Right infrahilar infiltrate and atelectasis unchanged. Diffuse interstitial infiltrates in both lungs that may represent pulmonary edema or interstitial pneumonia. The heart appears to be enlarged but u nchanged in size. ET tube ends about 4 cm above the maynor. An enteric tube enters the stomach. Overa ll, very little change since the last exam. XR/XR chest 1V portable [id number] IMPRESSION: 1. Right infrahilar right infiltrate and atelectasis unchanged. 2. Diffuse interstitial infiltrates in both lungs that may represent interstiti al pneumonia or pulmonary edema. No significant change since last exam. 3. ET tube and enteric tube both appearing to be in satisfactory location.
[2022-09-19] MEDS: silver sulfadiazine cream 1% 50 gm 1 APPLIC TOPICAL ×2 (06:22→20:46)
[2022-09-19 06:39] LABS: Glucose Point of Care 84 mg/dL (70-110)
[2022-09-19] MEDS: heparin drip 25,000 UNIT/500 ML PREMIX 47.01 UNIT IV (07:30)
[2022-09-19 07:44] LABS: Glucose Point of Care 83 mg/dL (70-110)
[2022-09-19] MEDS: albuterol 2.5 mg/3 mL Neb INHALATION ×2 (08:03→08:05)
[2022-09-19] MEDS: budesonide 0.5 mg/2 mL Neb INHALATION ×2 (08:07→19:52)
[2022-09-19] MEDS: docusate sodium 10 mg/mL (5ml) Liq 50 MG PO (08:24)
[2022-09-19] MEDS: hydrocortisone 100 mg/2 mL SDV IVP ×2 (08:24→20:46)
[2022-09-19] MEDS: metOLazone 5 MG Tablet PO (08:24)
[2022-09-19] MEDS: pantoprazole 40 mg SDV IVP (08:25)
[2022-09-19] MEDS: levothyroxine 100 mcg SDV 50 MCG IVP (08:25)
--- NOTE | 2022-09-19 10:19 | P.PN_ITS ---
Subjective Subjective: Patient seen at bedside Patient down to 40% FiO2 and PEEP of 10-tolerated SIMV for few hours today 06/28 blood cultures positive for coagulase-negative staph-likely contaminant- final cultures pending; however patient is receiving vancomycin -Patient is opening eyes-we will taper down Versed -She is on daily hemodialysis-General surgery to place permacath Other labs and imaging reviewed Medications: Reviewed: Yes Medication Review Details: Generic Name Dose Route Start Last Admin Trade Name Freq PRN Reason Stop Dose Admin Acetaminophen 650 mg 09/06/22 10:41 09/07/22 04:50 Acetaminophen 32 5 Mg Tablet PO 650 mg Q6H PRN Administration Mild/Mod Pain Or Temp >/= 101 Albuterol/Ipratrop ium 3 ml 09/06/22 10:45 09/10/22 08:21 Ipratropium-Albu terol 3 Ml Neb INHALATION 3 ml Q6H.RESP PRN Administration SHORTNESS OF KVNG TH Chlorhexidine Gluc millie 1 applic 09/10/22 01:00 09/10/22 04:17 Chlorhexidine Gl uconate 4% Btl 118 Ml TOPICAL Not Given 0100 STERLING Heparin Sodium (Po rcine) 5,000 unit 09/06/22 10:45 09/10/22 11:01 Heparin 5,000 Un it/Ml Inj 1 Ml SUBCUT 5,000 unit Q8H STERL[place] Administration Norepinephrine Bit artrate 4 mg 254 mls @ 0 mls/h r 09/07/22 22:30 09/08/22 13:45 / Dextrose IV Infused .Q0M STER[place] Titration Protocol Per Protocol Norepinephrine Bit artrate 8 mg 508 mls @ 0 mls/h r 09/08/22 11:30 09/09/22 10:04 / Dextrose IV 0 mcg/min .Q0M STERLING 0 mls/hr Titration Protocol Per Protocol Propofol 1,000 mg in 100 m ls @ 0 mls/hr 09/09/22 03:45 09/10/22 08:33 Diprivan IV 30 mcg/kg/min .Q0M ST[place]ING 31.14 mls/hr Administration Protocol Per Protocol Fentanyl 2,500 mcg / Sodium 250 mls @ 0 mls/h r 09/09/22 04:45 09/09/22 13:56 Chloride IV 30 mcg/hr .Q0M STER[place]ING 3 mls/hr Titration Protocol Per Protocol Piperacillin Sod/T azobactam 50 mls @ 12.5 mls /hr 09/10/22 08:00 09/10/22 07:58 Sod 2.25 gm/ Sod ium Chloride IV 12.5 mls/hr Q8H [place] Administration Ondansetron HCl 4 mg 09/06/22 10:41 09/08/22 16:34 Ondansetron 2 Mg /Ml Sdv 2 Ml IVP 4 mg Q8H PRN Administration vomiting, or N/V if npo Vitals/I&O/Wt Last Vital Signs Temp 98.1 F 09/19/22 09:54 Pulse 68 09/19/22 09:54 Resp 22 H 09/19/22 10:13 BP 132/68 09/19/22 09:54 Pulse Ox 95 09/19/22 10:13 O2 Del Method 09/19/22 09:54 O2 Flow Rate 6 09/08/22 09:00 FiO2 40 09/19/22 10:13 09/18/22 09/19/22 09/19/22 22:59 06:59 14:59 Intake Total 1850 / 2550 50 / 2600 940.333 / 940.333 Output Total 3550 / 3900 550 / 4450 Balance -1700 / -1350 -500 / -1850 940.333 / 940.333 Weight last 48 hrs Weight 362 lb Weight 376 lb 12.32 oz Weight 375 lb Physical Exam Narrative: PHYSICAL EXAM: General: Morbidly obese, young female, lying in bed, sedated and intubated. HEENT:NCAT, PERRLA, EOMI Neck: Supple Lungs: Bilateral diffuse crackles Heart: s1/s2, RRR Abd: soft, NT, ND, BS + Normoactive Extremities: No edema, right forearm infiltrated TRANSITIONS RN CARE COORDINATOR: sedated and limited TRANSITIONS RN CARE COORDINATOR exam possible. SKIN: no rash LDA: # HD Cath : Right IJ 09/11/2022 # A line: 09/08/2022 left radial artery #CVC: Right femoral line 09/08/2022 Urinary Catheter Management: Cha: Cath Placed During This Visit: yes Reason for Continuing Indwelling Catheter: Accurate Measurement of Urinary Output in Critically Ill Patients Urinary Catheter Date of Insertion: 09/08/22 Urinary Catheter Time of Insertion: 10:29 Data 09/19/22 03:38 09/19/22 03:38 Other Labs: Radiology Impressions Duplex Scan Upper Extremity Artery 09/08/22 20:22 IMPRESSION: 1. No evidence for major vessel occlusion or significant stenosis. 2. Other details discussed above. Venous Duplex 09/08/22 20:31 IMPRESSION: No evidence of acute right upper extremity DVT. Renal Ultrasound 09/09/22 05:33 IMPRESSION: 1. No hydronephrosis of either kidney. 2. Technologist notes somewhat limited evaluation of the kidneys, due to patient condition and body habitus. 3. Other details discussed above. Chest CTA 09/13/22 10:26 IMPRESSION: 1. Very limited exam due to artifact from CT bore contact. 2. Nondiagnostic evaluation of the pulmonary arteries. 3. Complete atelectasis of both lower lobes and partial atelectasis of the left upper lobe. 4. Cardiac enlargement. 5. Enlarged main pulmonary artery suggests pulmonary hypertension. 6. Lexus hepatis and gastrohepatic ligament lymphadenopathy is partially imaged. Recommend follow-up abdomen pelvis CT. 7. Satisfactory position of lines and tubes. Chest X-Ray 09/19/22 06:00 IMPRESSION: 1. Right infrahilar right infiltrate and atelectasis unchanged. 2. Diffuse interstitial infiltrates in both lungs that may represent interstitial pneumonia or pulmonary edema. No significant change since last exam. 3. ET tube and enteric tube both appearing to be in satisfactory location. Laboratory Results WBC 10.1 10^3/uL (4.0-10.0) H 09/19/22 03:38 RBC 4.73 10^6/uL (4.1-5.3) 09/19/22 03:38 Hgb 13.1 g/dL (11.5-15.3) 09/19/22 03:38 Hct 41.1 % (37.0-47.0) 09/19/22 03:38 MCV 86.9 fl (81-99) 09/19/22 03:38 MCH 27.7 pg (28.0-34.0) L 09/19/22 03:38 MCHC 31.9 g/dL (30.0-36.0) 09/19/22 03:38 RDW 13.4 % (12.1-15.1) 09/19/22 03:38 Plt Count 220 10^3/cmm (130-400) 09/19/22 03:38 MPV 9.5 fL (7.4-10.4) 09/19/22 03:38 Neut % (Auto) 79.9 % 09/19/22 03:38 Lymph % (Auto) 11.1 % 09/19/22 03:38 [place] % (Auto) 6.3 % 09/19/22 03:38 Eos % (Auto) 0.5 % 09/19/22 03:38 Baso % (Auto) 0.6 % 09/19/22 03:38 Neut # (Auto) 8.06 10^3/uL (1.8-7.7) H 09/19/22 03:38 Lymph # (Auto) 1.1 10^3/uL (0.8-4.8) 09/19/22 03:38 Shelby # (Auto) 0.6 10^3/uL (0.2-0.9) 09/19/22 03:38 Eos # (Auto) 0.1 10^3/uL (0.0-0.8) 09/19/22 03:38 Baso # (Auto) 0.1 10^3/uL (0.0-0.1) 09/19/22 03:38 Nucleated RBC % (auto) 0 % 09/19/22 03:38 Nucleated RBCs # 0.0 /100WBC 09/19/22 03:38 APTT 58.3 SECONDS (23.9-36.7) H 09/19/22 03:38 D-Dimer 3.78 ug/mIFEU (0-0.59) H 09/15/22 17:57 Specimen Type Arterial 09/19/22 04:00 Sample Site Radial, left 09/19/22 04:00 ABG pH 7.34 (7.35-7.45) L 09/19/22 04:00 ABG pCO2 40.6 mmHg (35-45) 09/19/22 04:00 ABG pO2 79.4 mmHg (80.0-100.0) L 09/19/22 04:00 ABG HCO3 22.0 mmol/L (22-26) 09/19/22 04:00 ABG O2 Saturation 95.3 09/19/22 04:00 ABG Base Excess -3.5 mmol/L (-2.0-2.0) L 09/19/22 04:00 Haider Test Pos 09/19/22 04:00 A-a O2 Gradient 25.0 mmHg (5-10) H 09/19/22 04:00 Hematocrit 42.7 % (37-47) 09/19/22 04:00 Hgb O2 Saturation 93.2 % (95-100) L 09/19/22 04:00 Carboxyhemoglobin 1.2 %THgb (0.4-20.1) 09/19/22 04:00 Methemoglobin 1.0 % (0.4-1.5) 09/19/22 04:00 Total Hemoglobin 13.9 g/dL (12-16) 09/19/22 04:00 Sodium 138.0 mmol/L (131-143) 09/19/22 04:00 Potassium 4.0 mmol/L (3.5-5.0) 09/19/22 04:00 Glucose 93.0 mg/dL (70-115) 09/19/22 04:00 Ionized Calcium 1.2 mmol/L (1.1-1.4) 09/19/22 04:00 O2 Delivery Device Vent 09/19/22 04:00 O2 Liters/Min 7.0 % 09/08/22 15:57 FiO2 45.0 % 09/19/22 04:00 Tidal Volume 0.42 09/19/22 04:00 PEEP 14.0 cmH20 09/19/22 04:00 Flight Control Specialist ID [email or web address] 09/19/22 04:00 Sodium 134 mmol/L (136-145) L 09/19/22 03:38 Potassium 4.2 mmol/L (3.5-5.1) 09/19/22 03:38 Chloride 94 mmol/L (98-107) L 09/19/22 03:38 Carbon Dioxide 20 mmol/L (22-29) L 09/19/22 03:38 Anion Gap 24.2 (5-19) H 09/19/22 03:38 BUN 64 mg/dL (6-20) H 09/19/22 03:38 Creatinine 4.6 mg/dL (0.5-0.9) H 09/19/22 03:38 GFR Calculation 10.4 mL/min (90-130) L 09/19/22 03:38 Glucose 98 mg/dL (65-115) 09/19/22 03:38 POC Glucose 96 mg/dL (70-110) 09/19/22 16:10 Estimat Average Glucose 114 09/12/22 03:59 Hemoglobin A1c 5.6 % (4.0-6.0) 09/12/22 03:59 Calculated Osmolality 296 mOsm/kg (285-295) H 09/19/22 03:38 Lactic Acid 1.6 mmol/L (0.5-2.2) 09/08/22 09:06 Calcium 10.1 mg/dL (8.5-10.5) 09/19/22 03:38 Phosphorus 5.9 mg/dL (2.5-4.5) H 09/11/22 05:57 Magnesium 2.1 mg/dL (1.7-2.3) 09/07/22 04:38 Iron 46 ug/dL (37-145) 09/11/22 05:57 TIBC 271 mcg/dl 09/11/22 05:57 % Saturation 16.9 % (20-50) L 09/11/22 05:57 Unsat Iron Binding 225 ug/dL (112-347) 09/11/22 05:57 Total Bilirubin 0.5 mg/dL (0.15-1.2) 09/19/22 03:38 AST 17 U/L (0-32) 09/19/22 03:38 ALT 20 U/L (0-33) 09/19/22 03:38 Alkaline Phosphatase 55 U/L (35-105) 09/19/22 03:38 Creatine Kinase 225 U/L (26-192) H 09/10/22 03:30 CK-MB (CK-2) 14.9 ng/mL (0-5.34) H 09/10/22 03:30 CK-MB (CK-2) Rel Index 6.6 % (0.0-10.4) 09/10/22 03:30 NT-Pro-B Natriuret Pep 1494 pg/mL (0-125) H 09/11/22 05:57 Total Protein 7.1 g/dL (6.6-8.7) 09/19/22 03:38 Albumin 3.9 g/dL (3.5-5.2) 09/19/22 03:38 Globulin 3.2 g/dL (1.3-4.6) 09/19/22 03:38 Triglycerides 313 mg/dL (0-150) H 09/12/22 03:59 Cholesterol 140 mg/dL (0-200) 09/12/22 03:59 LDL Cholesterol, Calc 49 mg/dL (50-129) L 09/12/22 03:59 Total VLDL Cholesterol 63 mg/dL (0-30) H 09/12/22 03:59 HDL Cholesterol 28 mg/dL (60-100) L 09/12/22 03:59 Cholesterol/HDL Ratio 5.00 mg/dL (0.0-4.40) H 09/12/22 03:59 Vitamin B12 514 pg/mL (232-1245) 09/11/22 05:57 Folate 8.9 ng/mL (4.8-37.3) 09/11/22 05:57 Procalcitonin 0.35 ng/mL (0-0.5) 09/08/22 09:06 TSH 18.45 uIU/mL (0.27-4.20) H 09/15/22 02:38 Free T4 0.60 ng/dL (0.82-1.77) L 09/15/22 02:38 Free T3 2.2 PG/ML (2.0-4.4) 09/11/22 05:57 Random Cortisol 2.67 ug/dL (2.47-19.5) 09/15/22 02:38 Urine Color Yellow (Yellow) 09/17/22 12:15 Urine Appearance Hazy (CLEAR) A 09/17/22 12:15 Urine pH 8 (5-7) H 09/17/22 12:15 Ur Specific [place] 1.010 (1.005-1.030) 09/17/22 12:15 Urine Protein Trace (Negative) 09/17/22 12:15 Urine Glucose (UA) Norm (Normal) 09/17/22 12:15 Urine Ketones Negative (Negative) 09/17/22 12:15 Urine Blood 3+ (Negative) H 09/17/22 12:15 Urine Nitrate Negative (Negative) 09/17/22 12:15 Urine Bilirubin Neg (Negative) 09/17/22 12:15 Prot Sulfosalicylic Acd Positive (Negative) 09/17/22 12:15 Urine Urobilinogen Norm mg/dL (Negative) 09/17/22 12:15 Ur Leukocyte Esterase 2+ (Negative) H 09/17/22 12:15 Urine RBC 25-40 /hpf (0-2) H 09/17/22 12:15 Urine WBC 55-80 /hpf (0-5) H 09/17/22 12:15 Ur Squamous Epith Cells 25-40 /hpf (0-5) H 09/17/22 12:15 Ur Transition Epith Cell 0-4 /hpf 09/10/22 12:30 Amorphous Sediment Not Reportable 09/17/22 12:15 Urine Bacteria 2+ /hpf (NONE) H 09/17/22 12:15 Urine Yeast 2+ /hpf H 09/17/22 12:15 Ur Random Sodium 93 mmol/L 09/09/22 01:10 Urine Creatinine 51 mg/dL (28-217) 09/09/22 01:10 Nasal Influ A H1 2008 PCR Not detected (NOT DETECT) 09/08/22 08:45 Bronch Specimen Source Left lower lobe 09/13/22 18:40 Bronchial Fluid Color Red 09/13/22 18:40 Bronchial Fluid Appearance Bloody (CLEAR) 09/13/22 18:40 Bronchial Fluid WBC 1361 /uL 09/13/22 18:40 Bronchial Fluid RBC 900 10^3/uL 09/13/22 18:40 Bronch Cells Counted 200 09/13/22 18:40 Bronchial Neutrophils 72.00 % (0.9-2.3) H 09/13/22 18:40 Bronchial Lymphocytes 26.00 % (10.71-12.91) H 09/13/22 18:40 Bronchial Eosinophils 1.00 % (0.13-0.25) H 09/13/22 18:40 Bronchial Macrophages 1.00 % (83.6-86.8) L 09/13/22 18:40 Bronchial Diff Comment Yes 09/13/22 18:40 Random Vancomycin 19.5 ug/mL (20.0-40.0) L 09/19/22 03:38 Adenovirus (PCR) Not detected (NOT DETECT) 09/08/22 08:45 C. pneumoniae DNA (PCR) Not detected (NOT DETECT) 09/08/22 08:45 Coronavirus 229E (PCR) Not detected (NOT DETECT) 09/08/22 08:45 Hepatitis A IgM Ab Non-reactive (Nonreactive) 09/11/22 05:57 Hep Bs Antigen Non-reactive (Nonreactive) 09/11/22 05:57 Hep Bs Antibody 12.8 (11.5-1000) 09/11/22 05:57 Hep B Core Total Ab Non-reactive (Nonreactive) 09/11/22 05:57 Hepatitis C Antibody Non-reactive (Nonreactive) 09/11/22 05:57 Human Metapneumovir PCR Not detected (NOT DETECT) 09/08/22 08:45 Influenza A (H1) PCR Not detected (NOT DETECT) 09/08/22 08:45 Influenza A (H3) PCR Not detected (NOT DETECT) 09/08/22 08:45 Influenza Type A (PCR) Not detected (NOT DETECT) 09/08/22 08:45 Influenza Type B (PCR) Not detected (NOT DETECT) 09/08/22 08:45 M. pneumoniae (PCR) Not detected (NOT DETECT) 09/08/22 08:45 Parainfluenza 1 (PCR) Not detected (NOT DETECT) 09/08/22 08:45 Parainfluenza 2 (PCR) Not detected (NOT DETECT) 09/08/22 08:45 Parainfluenza 3 (PCR) Not detected (NOT DETECT) 09/08/22 08:45 Parainfluenza 4 (PCR) Not detected (NOT DETECT) 09/08/22 08:45 RSV Type A (PCR) Not detected (NOT DETECT) 09/08/22 08:45 RSV Type B (PCR) Not detected (NOT DETECT) 09/08/22 08:45 Entero/Rhino (PCR) Not detected (NOT DETECT) 09/08/22 08:45 SARS-CoV-2 (PCR) Not detected (NOT DETECT) 09/08/22 08:45 Micro: Microbiology 09/17/22 16:30 Urine Culture - Final Urine Catheterized A&P Assessment and plan (1) Acute respiratory failure with hypoxia and hypercapnia: (2) Obstructive sleep apnea: (3) Pneumonia: (4) Flash pulmonary edema: (5) Acute kidney injury: (6) ARDS (adult respiratory distress syndrome): Plan ASSESSMENT/PLAN:Overall: 42-year-old young female with past medical history of hypertension-noncompliant with her medications-initially comes with hypertensive emergency with flash pulmonary edema-treated with nicardipine drip-becomes hypotensive-started on pressors and antibiotics for presumed sepsis. She went into respiratory failure requiring mechanical ventilation support. She also developed BRIDGETTE requiring temporary hemodialysis. NEURO: #Sedation-currently on fentanyl and Versed gtt. -We will taper off Versed today and will start coming down on fentanyl PULM: #Acute hypoxic and hypercapnic respiratory failure-probably there is a chronic component given her morbid obesity #?? Possible ARDS -Acute component secondary to flash pulmonary edema due to hypertensive emergency - -FiO2 requirement nicely coming down currently at 40 %; PEEP down to 10-patient tolerating SIMV -We will continue to taper down FiO2/PEEP requirements -We will continue to monitor with serial ABG -She underwent CTA for increasing oxygen requirements-there was a lot of motion artifact and CT was nondiagnostic for pulmonary arteries. There is moderate cardiac enlargement and enlarged main pulmonary artery suggesting pulmonary hypertension. There was partial atelectasis of left upper lobe and complete atelectasis of both lower lobes. -Currently receiving IV heparin as patient had persistent hypoxemia and CTA was nondiagnostic-oxygenation started to improve -She underwent bronchoscopic evaluation for airways 09/13/2022-there were thick mucus secretions in bilateral lower lobes which were suctioned-BAL neutrophils predominant-final cultures negative -She is on scheduled nebulization with DuoNeb as well as Pulmicort -Currently she is on Bumex 2 Mg Q8 over follow-up fluid overload-and temporary hemodialysis as per renal team -We will continue with awakening and breathing trials CVS: #Hypertensive emergency-treated with nicardipine drip-resolved #Circulatory shock-likely secondary to possible nicotine toxicity or demand ischemia due to underlying? Sepsis -Currently requiring intermittently requiring Levophed -Echocardiogram during admission showed normal LV size, systolic function with EF 60%. Grade 1 diastolic dysfunction. -Elevated BNP -We will continue with Bumex 2 Mg every 8 hours and fluid removal through temporary hemodialysis -Continue close hemodynamic and cardiac monitoring GI: #Diet: Recommended TF nephro #GI prophylaxis: PPI #LFTs: elevated - monitor RENAL: #BRIDGETTE-most likely prerenal secondary to ischemic ATN due to hypotension/? Contrast-induced nephropathy -- Currently on daily hemodialysis for 3 hours as per renal team to achieve net negative fluid balance -Electrolytes are acceptable but her BUN/creatinine kind of plateaued and unfortunately her urine output is not very encouraging which could also be due to at least 3 L being taken out through dialysis -Currently on Bumex 2 Mg 3 times daily -She is requiring almost daily hemodialysis-she may may be dependent on hemodialysis for neck several days-nephrology on board and if they agree-we will consult general surgery for tunneled hemodialysis catheter placement HEM: #Leukocytosis-improving #H&H stable #Normal platelets ENDO: #Significantly elevated TSH-suspect hypothyroidism-patient on levothyroxine 50 mcg q. p.o. daily-she may need to follow-up as outpatient #Normal blood sugars #Possible underlying adrenal insufficiency-currently on stress dose steroids ID: #Presumably met sepsis criteria #Low-grade temperature spikes- -Pulmonary infiltrates on imaging-with leukocytosis-and hypotension-there was a suspicion if it is all septic shock secondary to pneumonia; -However infiltrates can be explained with fluid overload, hypotension secondary to Cardene drip -Patient procalcitonin is low -Repeat blood cultures sent today 09/16/22 -06/28 bottle coagulase-negative staph- likely contaminant -Back on vancomycin and Zosyn -BAL neutrophil predominance-final cultures negative Code Status: Full code Disposition: ICU Critically ill: Yes MD discussed with: Hospitalist, RN, RT taking care of the patient ICU CHECKLIST: Problem list updated Verbal orders reviewed and signed Analgesia: Fentanyl Glycemic Control: N/A Nutrition: TF nephro Restraint Renewal (within 24 hrs): Yes Ulcer Prophylaxis: PPI Chemical Thromboprophylaxis: Prophylaxis: Heparin Mechanical Thromboprophylaxis: SCDs Need for Central line: Yes for multiple medications Need for Cha catheter: Yes for urine output monitoring Attestations Medical Necessity Statement*: Acute hypoxic/hypercapnic respiratory failure secondary to fluid overload due to hypertensive emergency-requiring mechanical ventilation; will continue to monitor at least 48 hours in ICU Critical Care Time: This patient has a high probability of? clinically sig nificant, sudden o r life threatening deterioration of the patient's (jonathan rological/pulmonar y/cardiac/renal/ID /endocrine) system s required my full , direct attention , the highest leve l of physician pre paredness for urge nt intervention an d personal managem ent.? I managed/meade pervised life or o rgan supporting in terventions that r equired frequent p hysician assessmen t.? I devoted my f ull attention in t he ICU to the dire ct care of this pa kam for the kareen od of time indicat ed above.? Time I spent with family or surrogate(s) is included only if the patient was in capable of providi ng necessary infor mation or particip ating in decision making.? This annie e includes the [facility] services pr ovided: Telemetry review Mechanical Ventilation Hemod ynamic interpretat ion, assessment an d management Revie w and interpretati on of CXR Review a nd interpretation of lab values Revi ew and interpretat ion of microbiolog ic data and cultur e results Review o f medications and administration Rev iew and interpreta tion of Nutrition requirements and m anagement Discussi on of management w ith other consulta nts and services C linical update to family members [x ] Data and vital s ign review and int erpretation [x] Segun kam assessment, examination and in tervention [x] Doc umentation [x] Med ication orders and management Time spent for teaching as well as perfor aydin procedures ar e billed separatel y and is not inclu ded in this note ? Critical Care Annie e (min): 52 Procedures Arterial Line Size (Gauge): 20 Coding Level of Care Code Critical Care >/= 30 minutes Diagnoses Acute respiratory failure with hypoxia and hypercapnia J96.01; J96.02 Obstructive sleep apnea G47.33 Pneumonia J18.9 Flash pulmonary edema J81.0 Acute kidney injury N17.9 ARDS (adult respiratory distress syndrome) J80 Time Spent (min) 53
--- NOTE | 2022-09-19 11:14 | PM.PN ---
Subjective Subjective: on vent off pressors Medications: Reviewed: Yes Vitals/I&O/Wt Last Vital Signs Temp 98.1 F 09/19/22 09:54 Pulse 68 09/19/22 09:54 Resp 22 H 09/19/22 10:13 BP 132/68 09/19/22 09:54 Pulse Ox 95 09/19/22 10:13 O2 Del Method 09/19/22 09:54 O2 Flow Rate 6 09/08/22 09:00 FiO2 40 09/19/22 10:13 09/18/22 09/19/22 09/19/22 22:59 06:59 14:59 Intake Total 1850 / 2550 50 / 2600 940.333 / 940.333 Output Total 3550 / 3900 550 / 4450 Balance -1700 / -1350 -500 / -1850 940.333 / 940.333 Weight last 48 hrs Weight 164.2 kg Weight 170.9 kg Weight 170.097 kg Physical Exam Urinary Catheter Management: Cha: Cath Placed During This Visit: yes Reason for Continuing Indwelling Catheter: Accurate Measurement of Urinary Output in Critically Ill Patients Urinary Catheter Date of Insertion: 09/08/22 Urinary Catheter Time of Insertion: 10:29 Data 09/19/22 03:38 09/19/22 03:38 Micro: Microbiology 09/17/22 16:30 Urine Culture - Final Urine Catheterized A&P Assessment and plan (1) Acute kidney injury: Plan 1. Acute kidney injury. Different includes contrast nephropathy, sepsis, acute interstitial nephritis, hemodynamic. . Due to high O2 requirement and worsening renal function patient was started on HD. Would like to keep her on a negative fluid balance, s/p HD last today , eval daily for hD needs. baseline creatinine was normal prior to admission at 0.5. Expect pt would require HD for few weeks to months. place tunnelled catheter 2. Volume overload:HD as above , on bumex 3. Primary respiratory acidosis, hypercapneic respiratory failure on ventilator, 4. sepsis with pneumonia 6. HTN Attestations Medical Necessity Statement*: Requires further hospitalization for persistent ARDS, ventilator dependent in a patient with morbid obesity, severe undiagnosed sleep apnea, BRIDGETTE requiring dialysis, septic shock Procedures Arterial Line Size (Gauge): 20 Coding Level of Care Code Acute Code for Chg Fwd Diagnoses Acute kidney injury N17.9
[2022-09-19 11:48] LABS: Glucose Point of Care 105 mg/dL (70-110)
--- NOTE | 2022-09-19 13:01 | PM.CONSULT ---
Providers/Reason For Consult Consulting Physician/Specialty*: Dr. José Miguel Prescott, DO/General surgery Reason for Consult*: Need for permacath Attending Physician: Zeferino Estrada MD Primary Care Provider: Isacc Cisneros History of Present Illness History of Present Illness Le Almaraz is a 42 year old female who is currently in the ICU with ARDS and decompensated heart failure, started getting hemodialysis via a temporary catheter. Nephrology determined that she needs long-term dialysis. General surgery was consulted for permacath placement. Patient is intubated and sedated. HPI and review of systems are limited secondary to this. Review of Systems General: Reports: ROS unobtainable due to endotracheal tube Medications/Allergies Home Medications Medication Instructions Recorded Confirmed Last Taken Type No Known Home Medications 09/07/22 09/07/22 Unknown History Allergies Allergy/AdvReac Type Severity Reaction Status Date / Time No Known Allergies Allergy Verified 09/07/22 07:55 Current Medications Generic Name Dose Route Start Last Admin Trade Name Freq PRN Reason Stop Dose Admin Acetaminophen 650 mg 09/06/22 10:41 09/15/22 05:54 Acetaminophen 325 Mg Tablet PO 650 mg Q6H PRN Administration Mild/Mod Pain Or Temp >/= 101 Albuterol Sulfate 2.5 mg 09/11/22 09:54 09/19/22 08:05 Albuterol 2.5 Mg/3 Ml Neb INHALATION 2.5 mg Q4H.RESPIRATORY PRN Administration SHORTNESS OF BREATH Albuterol/Ipratropium 3 ml 09/13/22 12:00 09/21/22 07:35 Ipratropium-Albuterol 3 Ml Neb INHALATION 3 ml Q4H.RESPIRATORY [place] Administration Artificial Tears 1 applic 09/12/22 22:30 09/20/22 20:50 Artificial Tears Op Oint 3.5 Gm EYE-BOTH 1 applic BEDTIME [place] Administration Budesonide 0.5 mg 09/12/22 20:00 09/21/22 07:35 Budesonide 0.5 Mg/2 Ml Neb INHALATION 0.5 mg BID.RESPIRATORY [place] Administration Bumetanide 2 mg 09/14/22 02:00 09/21/22 01:06 Bumetanide 0.25 Mg/Ml Sdv 10 Ml IVP 2 mg Q8H [place] Administration Chlorhexidine Gluconate 1 applic 09/10/22 01:00 09/21/22 01:08 Chlorhexidine Gluconate 4% Btl 118 Ml TOPICAL 1 applic 0100 [place] Administration Docusate Sodium 50 mg 09/17/22 18:00 09/20/22 07:39 Docusate Sodium 10 Mg/Ml (5ml) Liq PO Not Given DAILY [place] Heparin Sodium (Porcine) 10,000 unit 09/11/22 19:50 09/13/22 14:57 Heparin, Porcine 1,000 Unit/Ml Inj 10 Ml HE 10,000 unit PRN PRN Administration Dialysis Heparin Sodium (Porcine) 0 unit 09/16/22 07:15 09/17/22 21:07 Heparin 5,000 Unit/Ml Inj 1 Ml IV 2,800 unit PRN PRN Administration Heparin weight-base protocol Protocol Hydrocortisone Sodium Succinate 100 mg 09/17/22 21:00 09/20/22 20:48 Hydrocortisone 100 Mg/2 Ml Sdv IVP 100 mg Q12H [place] Administration Propofol 1,000 mg in 100 mls @ 0 mls/hr 09/09/22 03:45 09/14/22 19:00 Diprivan IV Infused .Q0M [place] Titration Protocol Per Protocol Fentanyl 2,500 mcg/ Sodium 250 mls @ 0 mls/hr 09/09/22 04:45 09/21/22 01:33 Chloride IV 150 mcg/hr .Q0M [place] 15 mls/hr Administration Protocol Per Protocol Norepinephrine Bitartrate 4 mg 254 mls @ 0 mls/hr 09/11/22 17:00 09/20/22 18:02 / Dextrose IV 0 mcg/min .Q0M [place] 0 mls/hr Titration Protocol Per Protocol Midazolam HCl 100 mg/ Sodium 100 mls @ 0 mls/hr 09/13/22 19:15 09/20/22 18:02 Chloride IV 4 mg/hr .Q0M [place] 4 mls/hr Administration Protocol Per Protocol Heparin Sodium/Sodium Chloride 25,000 unit in 500 mls @ 0 mls/hr 09/16/22 07:15 09/20/22 05:00 Heparin Drip IV Infused .Q0M [place] Titration Protocol Per Protocol Vancomycin HCl 1,000 mg/ 250 mls @ 250 mls/hr 09/16/22 12:00 09/20/22 12:51 Sodium Chloride IV 250 mls/hr Q48H [place] Administration Protocol Piperacillin Sod/Tazobactam 50 mls @ 12.5 mls/hr 09/16/22 13:00 09/21/22 04:54 Sod 3.375 gm/ Sodium Chloride IV Infused Q12H [place] Infusion Protocol Albumin Human 12.5 gm in 50 mls @ 60 mls/hr 09/18/22 06:27 09/19/22 15:34 Albumin IV Infused PRN PRN Infusion Hypotension and/or symptomatic Levothyroxine Sodium 50 mcg 09/15/22 10:15 09/20/22 09:19 Levothyroxine 100 Mcg Sdv IVP 50 mcg DAILY [place] Administration Ondansetron HCl 4 mg 09/06/22 10:41 09/08/22 16:34 Ondansetron 2 Mg/Ml Sdv 2 Ml IVP 4 mg Q8H PRN Administration vomiting, or N/V if npo Pantoprazole Sodium 40 mg 09/20/22 09:00 09/20/22 17:39 Pantoprazole 40 Mg Sdv IVP 40 mg BID [place] Administration Silver Sulfadiazine 1 applic 09/15/22 21:00 09/21/22 05:50 Silver Sulfadiazine Cream 1% 50 Gm TOPICAL 1 applic QAM&BEDTIME [place] Administration Sucralfate 1 gm 09/20/22 17:00 09/21/22 04:50 Sucralfate 1 Gm Tablet PO Not Given Q12H [place] PFSH Acute PFSH: Medical History CHF (congestive heart failure) Essential hypertension Hypertension screen Hypoxia Medication management Polycystic ovarian disease Vitamin D deficiency Surgical History S/P cholecystectomy S/P D&C (status post dilation and curettage) S/P tubal ligation Social History Smoking and tobacco status: former smoker Quit status (tobacco): has quit using tobacco Second hand smoke exposure: No Smoking risk assessment/counseling performed?: No Alcohol intake: never Desire information about alcohol rehabilitation?: No Counseling given: No Desire information about substance/drug rehabilitation?: No Counseling given: No Vitals/I&O/Wt Last Vital Signs Temp 98.4 F 09/21/22 04:00 Pulse 84 09/21/22 07:49 Resp 16 09/21/22 07:42 BP 166/82 09/21/22 05:00 Pulse Ox 93 09/21/22 07:42 O2 Del Method 09/21/22 07:35 O2 Flow Rate 6 09/08/22 09:00 FiO2 35 09/21/22 07:42 09/20/22 09/21/22 09/21/22 22:59 06:59 14:59 Intake Total 396.164 / 738.681 125.667 / 864.348 Output Total 1999 900 / 2900 Balance -1603.836 / -1261.319 -774.333 / -2035.652 Weight last 48 hrs Weight 362 lb Weight 362 lb Weight 375 lb 3.628 oz Physical Exam Narrative: General : Patient is well developed , morbidly obese, intubated/sedated Head : Normal cephalic, a-traumatic. Ears : Pinnae and external canal are normal. Hearing is normal. Eyes : PERRLA, Sclera and injection are normal. No conjunctival discharge. Nose : Mucous membranes are without erythema. Throat : buccal mucosa is normal, gums are without significant recession or hypertrophy. Lungs : Equal chest rise bilaterally, no use of accessory muscles, trachea is midline. Cor : Rate and rhythm are normal. Abdomen : Soft, ND, NT, no g/r/m Extremities : dorsalis pedis pulses are present bilaterally, non-tender to palpation of calves. Upper extremities are normal bilaterally. Urinary Catheter Management: Cha: Cath Placed During This Visit: yes Reason for Continuing Indwelling Catheter: Accurate Measurement of Urinary Output in Critically Ill Patients Urinary Catheter Date of Insertion: 09/08/22 Urinary Catheter Time of Insertion: 10:29 Data 09/21/22 03:23 09/21/22 03:23 Micro: Microbiology 09/20/22 02:56 Stool Lactoferrin - Final Stool Occult Blood (FIT) - Final 09/19/22 15:55 Blood Culture - Preliminary Blood NEGATIVE TO DATE 09/19/22 15:55 Blood Culture - Preliminary Blood 09/20/22 02:56 C.difficile Toxin B Gene (PCR) - Final Stool Routine Collection A&P Assessment and plan (1) Dialysis patient: Plan Permacath placement The risks and benefits of the procedure, including but not limited to, bleeding, infection, infection requiring Mediport removal antibiotic therapy and repeat surgery, damage to surrounding structures, scar, numbness, pain, pneumothorax requiring thoracostomy tube, were explained to the patient. He/She is understanding of the risks and wishes to proceed. Procedures Arterial Line Size (Gauge): 20 Coding Level of Care Code Acute Code for Chg Fwd Diagnoses Dialysis patient Z99.2
--- NOTE | 2022-09-19 14:35 | P.PN_ITS ---
Subjective Subjective: No acute events over the night. Patient has been hemodynamically stable and afebrile. During today FiO2 has been turned down to 40% with PEEP turned down to 10, tidal volume of 420. Patient did have 1 more session of dialysis on which only 1100 was pulled off. Patient's blood pressure has been on the softer side. Mean artery pressure is being maintained over 65. Tmax afebrile in last 24 hours. Medications: Reviewed: Yes Vitals/I&O/Wt Last Vital Signs Temp 97.9 F 09/19/22 11:38 Pulse 67 09/19/22 13:47 Resp 24 H 09/19/22 14:23 BP 83/43 09/19/22 13:45 Pulse Ox 92 09/19/22 14:23 O2 Del Method 09/19/22 13:45 O2 Flow Rate 6 09/08/22 09:00 FiO2 40 09/19/22 14:23 09/18/22 09/19/22 09/19/22 22:59 06:59 14:59 Intake Total 1850 / 2550 50 / 2600 947.433 / 947.433 Output Total 3550 / 3900 550 / 4450 350 / 350 Balance -1700 / -1350 -500 / -1850 597.433 / 597.433 Weight last 48 hrs Weight 164.2 kg Weight 170.9 kg Weight 170.097 kg Physical Exam Narrative: Intubated sedated on mechanical ventilation. Well sedated today Const: COMMON NORMALS: patient oriented x3 HENMT: COMMON NORMALS: normocephalic, atraumatic and hearing grossly normal bilaterally HEAD & SCALP: normocephalic and atraumatic Resp: COMMON NORMALS: clear to auscultation bilaterally AUSCULTATION: clear to auscultation bilaterally OTHER: Diminished air entry bilaterally mostly in the left lower lobe Cardio: COMMON NORMALS: regular rate, regular rhythm, S1 normal heart sound present, S2 normal heart sound present, No gallops present (Cardio), No murmurs present (Cardio), No rub (Cardio) and Peripheral pulses 2+ throughout RATE: regular rate RHYTHM: regular rhythm HEART SOUNDS: S1 normal heart sound present and S2 normal heart sound present PERIPHERAL PULSES: Peripheral pulses 2+ throughout GI: COMMON NORMALS: Normal to inspection, nondistended, normoactive bowel sounds present, Soft to palpation, non-tender, No hepatosplenomegaly present and no masses AUSCULTATION: Yes normoactive bowel sounds PALPATION: Yes Soft to palpation and Yes No hepatosplenomegaly present RECTAL EXAM: deferred Extremity: COMMON NORMALS: no clubbing, cyanosis or edema and no pedal edema Neuro: COMMON NORMALS: patient oriented x3 Skin: OTHER: Blister present in right dorsum of the hand secondary to infiltration earlier in the admission which has popped now. Urinary Catheter Management: Cha: Cath Placed During This Visit: yes Reason for Continuing Indwelling Catheter: Accurate Measurement of Urinary Output in Critically Ill Patients Urinary Catheter Date of Insertion: 09/08/22 Urinary Catheter Time of Insertion: 10:29 Data 09/19/22 03:38 09/19/22 03:38 Micro: Microbiology 09/16/22 13:27 Blood Culture - Preliminary Blood Staphylococcus sp coag neg 09/17/22 16:30 Urine Culture - Final Urine Catheterized A&P Assessment and plan (1) ARDS (adult respiratory distress syndrome): (2) Shock: (3) Acute respiratory failure with hypoxia and hypercapnia: (4) Obstructive sleep apnea: (5) CHF (congestive heart failure): Qualifiers: Heart failure chronicity: acute on chronic Heart failure type: diastolic Qualified Code(s): I50.33 - Acute on chronic diastolic (congestive) heart failure (6) Dialysis patient: (7) Acute kidney injury: (8) S/P bronchoscopy with bronchoalveolar lavage: On 09/13. Encountered high mucus in left lower lobe. Follow cultures. Patient desaturated during procedures to high 70s and low 80s but otherwise tolerated procedure well. (9) Pneumonia: (10) Sepsis: (11) Flash pulmonary edema: (12) Hypertensive emergency: (13) Essential hypertension: (14) Fever: (15) Goals of care, counseling/discussion: (16) Ventilator dependent: Plan 42 year old female with known past medical history of hypertension noncompliant with antihypertensive medication, morbid obesity, was accepted as a direct transfer, she was initially admitted for the management of substernal chest pain, associated with acute onset of worsening shortness of breath. Assessment: ARDS: Hypoxic and hypercapnic respiratory failure: Currently intubated. Most likely in setting of decompensated congestive heart failure in setting of hypertensive emergency and acute kidney dysfunction in setting of obstructive sleep apnea and possible pneumonia. Continue current ventilator setting with repeat ABG in AM. Continue with Bumex to 2 mg 3 times daily. Patient getting more negative every day with dialysis now. Negative around 10.5 L today. If oxygenation continues to improve can plan for possible weaning trial in next 24 to 48 hours. Fluid restriction as much as possible. Not able to maintain fluid restriction given the amount of IV fluids patient is getting because of sedation and pressor support. Hold off on tube feeds for now to reduce fluid intake. Will request to continue with dialysis. Appreciate CTA results. Concern for fluid overload with possible mucous and left lower lobe for which she underwent bronchoscopy. Poor study for pulmonary embolism given movement artifacts. Repeat D-dimer still elevated and given patient requiring high oxygen supplementation even after maximum treatment for now we will continue with heparin drip while monitoring for drop in hemoglobin. Monitor daily weights. Echocardiogram done during hospitalization shows EF of 60% with grade 1 diastolic dysfunction. Patient will need an outpatient sleep study to quantify sleep apnea. Patient will most likely need to be extubated and discharged on BiPAP. Fever: New fevers in last 24 hours going up to 101.3 Fahrenheit. Antibiotics recently stopped. Blood cultures growing coag negative staph in 1 out of 4 bottles. Could be contaminant. But given critical sickness for now we will repeat blood cultures from all the lines including arterial line, femoral line, HD catheter. Multiple lines all done within the last 1 week. For now empirically continue with vancomycin and Zosyn. Previously blood cultures so far negative. Bronc cultures negative. Urine Legionella, bacterial antigen negative. Urine culture benign. Sputum culture negative. MRSA swab negative. Vancomycin stopped on 09/11, Zosyn last dose on 09/14. BRIDGETTE : Slight metabolic acidosis today. Possibly secondary to ATN secondary to sepsis, in the setting of acute hypotension, versus possibly secondary to antihypertensive effects. Possible contrast-induced nephropathy as she has received a CTA recently, possible AIN Continue daily dialysis for now. Bumex 2 mg every 8 hourly. Appreciate nephrology recommendations. Continue daily dialysis. Given patient being ventilator dependent with difficult extubation given multiple comorbidities it would be best for patient to be as net negative as possible. Sepsis secondary to hospital-acquired pneumonia: Currently septic versus cardiogenic shock. Sepsis during admission which was ruled in with elevated white cell count, hypotensive, target organ dysfunction with increasing oxygen requirement and eventual intubation, need for vasopressor support, x-ray chest showing possible infiltrates. Wean Levophed while keeping mean arterial pressure over 65. Saturation over 92%. Continue with sedation with fentanyl and Versed for now. Subclinical hypothyroidism: TSH still elevated. Free T4 levels below normal. Check cortisol were suboptimally normal. Hydrocortisone been weaned down. Will monitor response and plan to wean gradually. Monitor blood sugars. Hypertension with hypertensive emergency with flash pulmonary edema on admission: Resolved Blood pressure is better controlled. We will continue to monitor blood pressures and start treatment accordingly. Goal blood pressure less than 140/ 90 mmHg with mean over 65 Right upper extremity swelling: DVT ruled out. Does have blister on the dorsum of right hand due to infiltration of IV antibiotics. Continue to monitor. Sedation: Versed and fentanyl Glycemic control: Hypoglycemia protocol Nutrition: Hold off on tube feeds for now to restrict fluid intake. Was on goal of 60 cc/h. CODE STATUS: Discussed in detail with patient mother and who is the DPOA at bedside. Patient is full code. We discussed need for dialysis for quick improvement. Family verbalized understanding and are agreeable. PUD prophylaxis: Protonix DVT prophylaxis:Heparin 5000 SQ Q8h Discharge planning: We will plan on discharge to home versus SNF as per clinical improvement going forward once patient is extubated. Patient will need sleep study as an outpatient and possible discharge on BiPAP. Continue with care at ICU Plan for the day: Continue with current ventilator setting of tidal move 420, PEEP of 10, FiO2 of 40% overnight. Can plan for sedation vacation and possible weaning trials within next 24 to 48 hours. Plan for permacath placement with surgery tomorrow. 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 Keep mean artery pressure 65. Follow-up repeat cultures being sent today from all the lines. Continue with vancomycin and Zosyn for now. Continue with hydrocortisone 100 mg every 12 hourly. 09/17: Had a detailed discussion with patient's and mother at bedside. We discussed that patient is improving a bit with current management and oxygen supplementation are coming down but she continues to remain critically ill [place] and she is on ventilator, high PEEP and and dialysis. We did discuss that if she continues to improve we can do a weaning trial once PEEP also comes down versus possibility of transfer to LTAC as patient will require prolonged weaning trial. All the questions were answered. 09/14: Had family discussion with patient's mother, and father at bedside. We discussed that unfortunately even after the maximum treatment including dialysis, high ventilator settings patient continues to require high oxygen supplementation which is most likely secondary to baseline severe and diagnosed obstructive sleep apnea, morbid obesity leading to restrictive lung disease, diastolic heart failure and severe acute kidney injury requiring dialysis which is restricting the treatment. We discussed given the severe obstructive sleep apnea it is being difficult to decrease the ventilator settings for the patient and currently patient is going into ARDS. We discussed what patient might benefit from would be proning and paralyzing but unfortunately given her body habitus it is impossible at our hospital to do proning as we do not have the beds required for proning in severely morbid obese patient. We also discussed that is difficult to transfer the patient as it is unsafe given the 100% FiO2 requirement currently. We discussed that we can go higher on the PEEP but that would put her at a higher risk of possible pneumothorax. Family verbalized understanding and understand the risks involved with the possibility of increasing the PEEP and given the limited options they are agreeable for the same. They are thankful for the care patient is receiving at the hospital. They understand that patient is critically sick and even if she improves there is a high chance that she will remain on a ventilator for some time going forward and might need to go to LTAC also if and when she improves. This documentation was created by [employer] computer hardware designer software. Every effort was made to ensure accuracy of computer hardware designer. Any obvious errors or omissions should be clarified with the author of the document. Attestations Medical Necessity Statement*: Requires further hospitalization for management of ventilator dependent severe hypoxic and hypercapnic respiratory failure in setting of diastolic heart failure, severe obstructive sleep apnea, BRIDGETTE requiring daily dialysis, septic shock Procedures Arterial Line Size (Gauge): 20 Coding Level of Care Code Critical Care >/= 30 minutes Critical care time (in minutes): 90 The high probability of a clinically significant, sudden or life threatening deterioration, as referenced in this documentation, required my full and direct attention, intervention and personal management. The critical care time shown is in addition to time spent performing any reported separately billable procedures and includes the following: [x] Data and vital sign review and interpretation [x ] Patient assessment, examination and intervention [x] Medication orders and management [x] Patient/Family updates as able [x] Care Coordination and Documentation. Other Coding Information This patient has a high probability of clinically significant, sudden or life threatening deterioration of the patient's (neurological/pulmonary/cardiac/renal/ID/endocrine) systems required my full, direct attention, the highest level of physician preparedness for urgent intervention and personal management. I managed/supervised life or organ supporting interventions that required frequent physician assessment. I devoted my full attention in the ICU to the direct care of this patient for the period of time indicated above. Time I spent with family or surrogate(s) is included only if the patient was incapable of providing necessary information or participating in decision making. This time includes the following services provided: Telemetry review Mechanical Ventilation Hemodynamic interpretation, assessment and management Review and interpretation of CXR Review and interpretation of lab values Review and interpretation of microbiologic data and culture results Review of medications and administration Review and interpretation of Nutrition requirements and management Discussion of management with other consultants and services Clinical update to family members Diagnoses ARDS (adult respiratory distress syndrome) J80 Shock R57.9 Acute respiratory failure with hypoxia and hypercapnia J96.01; J96.02 Obstructive sleep apnea G47.33 CHF (congestive heart failure) I50.33 Heart failure chronicity: acute on chronic Heart failure type: diastolic Dialysis patient Z99.2 Acute kidney injury N17.9 S/P bronchoscopy with bronchoalveolar lavage Z98.890 Pneumonia J18.9 Sepsis A41.9 Flash pulmonary edema J81.0 Hypertensive emergency I16.1 Essential hypertension I10 Fever R50.9 Goals of care, counseling/discussion Z71.89 Ventilator dependent Z99.11
[2022-09-19] MEDS: albumin 12.5 GM/50 ML VIAL IV (14:44)
[2022-09-19 16:13] LABS: Glucose Point of Care 96 mg/dL (70-110)
[2022-09-19 16:36] LABS: Partial Thromboplastin Time 82.9 SECONDS (23.9-36.7)
[2022-09-19] MEDS: heparin drip 25,000 UNIT/500 ML PREMIX 44 UNIT IV (17:28)
[2022-09-19] MEDS: sodium chloride 0.9% 500 ML 999 ML IV (17:30)
--- NOTE | 2022-09-19 20:20 | PC.NURSE ---
Physician Communication Dr. Rodríguez called unit to discuss patient status; vitals and vent settings relayed. Verbal order received to initiate levophed use if BP MAP <65.
[2022-09-19] MEDS: artificial tears Op Oint 3.5 gm 1 APPLIC EYE-BOTH (20:47)
[2022-09-19 21:37] LABS: Glucose Point of Care 91 mg/dL (70-110)
[2022-09-20] VITALS (60 sets, daily range): BP systolic 77–163; BP diastolic 41–99; PULSE 72–103; RESP 18–22; TEMP 36.7–36.9; O2SAT 86–94; BMI 56.7
[2022-09-20] MEDS: piperacillin-tazobactam 3.375 GM in sodium chloride 0.9% (plus) 50 ML IV ×2 (01:45→12:50)
[2022-09-20] MEDS: chlorhexidine gluconate 4% Btl 118 mL 1 APPLIC TOPICAL (01:46)
[2022-09-20] MEDS: bumetanide 0.25 mg/mL SDV 10 mL 2 MG IVP ×3 (02:40→17:39)
--- NOTE | 2022-09-20 02:58 | XRR_ITS ---
PROCEDURE INFORMATION: Exam: XR Abdomen Exam date and time: 09/20/2022 2:25 AM Age: 42 years old Clinical indication: Prior surgery; Surgery type: Gb. Tubal; Patient HX: New onset of coffee ground output from og and rectal tube. ; Additional info: Increasing ng output TECHNIQUE: Imaging protocol: Radiologic exam of the abdomen. Views: Frontal supine view of the abdomen. 1 View. COMPARISON: CR XR chest 1V portable [id number] 09/19/2022 5:09 AM FINDINGS: Tubes, catheters and devices: Nasogastric tube is seen with tip overlying the left mid abdominal region, in the area of the upper stomach. Gastrointestinal tract: Air distended region is seen in the left mid abdominal region, which may represent and air distended lower stomach or a dilated loop of small bowel. Assessment is limited. Recommend follow-up. Some gas filled loops of other small bowel are also seen in the visualized abdomen. No pneumatosis or mass effect. Bones/joints: No acute osseous abnormality seen. Soft tissues: Surgical clips are seen in the right upper quadrant of the abdomen, likely related to prior cholecystectomy. XR/XR KUB portable [id number] IMPRESSION: Nasogastric tube, as noted above. Air distended loop of bowel in the mid abdomen, as noted above.
[2022-09-20 03:36] LABS: Basophils # 0.1 10^3/uL (0.0-0.1); Basophils % 0.6 %; Eosinophils # 0.1 10^3/uL (0.0-0.8); Eosinophils % 0.4 %; Hematocrit 39.8 % (37.0-47.0); Hemoglobin 12.1 g/dL (11.5-15.3); Lymphocytes # 1.3 10^3/uL (0.8-4.8); Lymphocytes % 9.1 %; Mean Corpuscular HGB Conc 30.4 g/dL (30.0-36.0); Mean Corpuscular Hemoglobin 27.4 pg (28.0-34.0); Mean Platelet Volume 9.6 fL (7.4-10.4); Monocytes # 0.9 10^3/uL (0.2-0.9); Monocytes % 6.2 %; Neutrophils # 11.59 10^3/uL (1.8-7.7); Neutrophils % 80.6 %; Nucleated Red Blood Cells % 0 %; Platelet Count 268 10^3/cmm (130-400); Red Blood Count 4.42 10^6/uL (4.1-5.3); Red Cell Distribution Width 13.6 % (12.1-15.1); White Blood Count 14.4 10^3/uL (4.0-10.0)
--- NOTE | 2022-09-20 03:45 | PC.NURSE ---
GI Output At approximately 0300, patient found with copious amounts of dark brown liquid stool overflowing the bed, as well as her OG tube filled with dark brown, coffee ground like substance. OG tube hooked to low intermittent wall suction with 300 ml immediately returned. Previously in shift, no gastric content able to be aspirated from OG tube. Dr. Chou notified of change and output; verbal orders received to obtain stat morning labs, a KUB xray, and send off a CDIFF and fecal occult sample. Additional order received to insert a rectal tube. At 0500, verbal order received to pause heparin drip until further notice. See MAR for details.
[2022-09-20 03:51] LABS: Partial Thromboplastin Time 43.5 SECONDS (23.9-36.7)
[2022-09-20] MEDS: ipratropium-albuterol 3 mL Neb INHALATION ×6 (03:56→23:44)
[2022-09-20 03:57] LABS: Alanine Aminotransferase 18 U/L (0-33); Albumin Level 3.9 g/dL (3.5-5.2); Alkaline Phosphatase 55 U/L (35-105); Anion Gap 19.6 (5-19); Aspartate Amino Transferase 16 U/L (0-32); Blood Urea Nitrogen 73 mg/dL (6-20); Calcium 9.4 mg/dL (8.5-10.5); Carbon Dioxide 23 mmol/L (22-29); Chloride 95 mmol/L (98-107); Globulin 3.1 g/dL (1.3-4.6); Glomerular Filtration Rate 11.3 mL/min (90-130); Glucose 120 mg/dL (65-115); Osmolality Calculated 299 mOsm/kg (285-295); Potassium 4.6 mmol/L (3.5-5.1); Sodium 133 mmol/L (136-145); Total Bilirubin 0.4 mg/dL (0.15-1.2)
[2022-09-20 04:03] LABS: Arterial Blood Gas Hematocrit 38.9 % (37-47); Base Excess ABG -4.4 mmol/L (-2.0-2.0); Blood Gas Allen Test Pos; Blood Gas Sample Type Arterial; Carboxyhemoglobin 1.4 %THgb (0.4-20.1); HCO3 ABG 24.7 mmol/L (22-26); Ionized Calcium Level - ABG 1.3 mmol/L (1.1-1.4); Methemoglobin 0.8 % (0.4-1.5); Oxygen Saturation ABG 93.2; PO2 ABG 74.7 mmHg (80.0-100.0); Potassium Level - ABG 4.6 mmol/L (3.5-5.0); Total Hemoglobin 12.7 g/dL (12-16)
[2022-09-20 04:04] LABS: Alveolar-Arterial Oxygen Gradi 22.5 mmHg (5-10); Blood Gas Sample Site Radial, left; Oxygen Device VENT
[2022-09-20 04:06] LABS: ABG PCO2 63.3 mmHg (35-45)
[2022-09-20] MEDS: silver sulfadiazine cream 1% 50 gm 1 APPLIC TOPICAL ×2 (06:20→20:46)
[2022-09-20 07:17] LABS: Glucose Point of Care 104 mg/dL (70-110)
[2022-09-20] MEDS: budesonide 0.5 mg/2 mL Neb INHALATION ×2 (08:18→20:38)
--- NOTE | 2022-09-20 08:46 | XR_ITS ---
WS: [id number] Exam: XR KUB portable [id number] Date/Time of Exam: 09/20/2022 8:50 AM Reason For Exam: recheck No bowel obstruction or free air identified. An enteric tube is noted in the body the stomach. Signs of prior cholecystectomy. Organ margins are obscured. Regional bony elements are intact. XR/XR KUB portable [id number] IMPRESSION: 1. No acute process noted. 2. Enteric tube in place appearing to end in the body the stomach.
--- NOTE | 2022-09-20 08:47 | XR_ITS ---
WS: [id number] Exam: XR chest 1V portable [id number] Date/Time of Exam: 09/20/2022 8:50 AM Reason For Exam: fluid Comparison 09/19/2022. Bilateral pulmonary infiltrates show little change. The heart is enlarged and unchanged in size. No p neumothorax. ET tube ends about 5 cm above the maynor in good position. An enteric tube extends below the diaphragm but the tip is not visible. Additional monitoring leads superimpose the chest. An forest tional metallic tip catheter superimposes the right mediastinum and may represent an IJ central line. XR/XR chest 1V portable [id number] IMPRESSION: 1. Bilateral pulmonary infiltrates showing little change since the last exam. 2. Cardiac enlargement unchanged. 3. ET tube and enteric tube in in place as noted above.
[2022-09-20] MEDS: hydrocortisone 100 mg/2 mL SDV IVP ×2 (09:18→20:48)
[2022-09-20] MEDS: pantoprazole 40 mg SDV IVP ×2 (09:18→17:39)
[2022-09-20] MEDS: levothyroxine 100 mcg SDV 50 MCG IVP (09:19)
[2022-09-20 11:36] LABS: Glucose Point of Care 101 mg/dL (70-110)
[2022-09-20] MEDS: vancomycin 1,000 MG in sodium chloride 0.9% 250 ML 250 MG IV (12:51)
[2022-09-20 13:05] LABS: ABG PCO2 39.4 mmHg (35-45); ABG PH Result 7.32 (7.35-7.45); Alveolar-Arterial Oxygen Gradi 23.7 mmHg (5-10); Arterial Blood Gas Hematocrit 35.3 % (37-47); Base Excess ABG -5.6 mmol/L (-2.0-2.0); Blood Gas Operator Identificat CAK; Blood Gas Sample Type Arterial; Blood Gas Tidal Volume 0.42; Carboxyhemoglobin 1.3 %THgb (0.4-20.1); HCO3 ABG 20.1 mmol/L (22-26); HGB O2 Sat 95.9 % (95-100); Ionized Calcium Level - ABG 1.2 mmol/L (1.1-1.4); Methemoglobin 0.4 % (0.4-1.5); Oxygen Device VENT; Oxygen Saturation ABG 97.5; PO2 ABG 91.6 mmHg (80.0-100.0); Potassium Level - ABG 3.5 mmol/L (3.5-5.0); Total Hemoglobin 11.5 g/dL (12-16)
--- NOTE | 2022-09-20 13:16 | PM.PN ---
Subjective Subjective: Yesterday night patient had an episode of desaturation while turning her Today morning ABG showed respiratory acidosis-switched from SIMV to volume control and repeat ABG has improved-on ventilator she is requiring 45% FiO2 and PEEP 10 Patient opens eyes and follows commands-she is Versed 3 Mg and fentanyl 150-we are planning to taper off her sedation She is having significant coffee-ground secretions from her NG tube as well as rectal tube-heparin was held yesterday night-H&H is stable She is scheduled to get permacath placement sometime later today She has a stage II ulcer on dorsum of her right hand-surgery to look at it Medications: Reviewed: Yes Medication Review Details: Generic Name Dose Route Start Last Admin Trade Name Freq PRN Reason Stop Dose Admin Acetaminophen 650 mg 09/06/22 10:41 09/07/22 04:50 Acetaminophen 32 5 Mg Tablet PO 650 mg Q6H PRN Administration Mild/Mod Pain Or Temp >/= 101 Albuterol/Ipratrop ium 3 ml 09/06/22 10:45 09/10/22 08:21 Ipratropium-Albu terol 3 Ml Neb INHALATION 3 ml Q6H.RESP PRN Administration SHORTNESS OF KVNG TH Chlorhexidine Gluc millie 1 applic 09/10/22 01:00 09/10/22 04:17 Chlorhexidine Gl uconate 4% Btl 118 Ml TOPICAL Not Given 0100 STERLING Heparin Sodium (Po rcine) 5,000 unit 09/06/22 10:45 09/10/22 11:01 Heparin 5,000 Un it/Ml Inj 1 Ml SUBCUT 5,000 unit Q8H ST[place] Administration Norepinephrine Bit artrate 4 mg 254 mls @ 0 mls/h r 09/07/22 22:30 09/08/22 13:45 / Dextrose IV Infused .Q0M ST[place] Titration Protocol Per Protocol Norepinephrine Bit artrate 8 mg 508 mls @ 0 mls/h r 09/08/22 11:30 09/09/22 10:04 / Dextrose IV 0 mcg/min .Q0M STER[place]ING 0 mls/hr Titration Protocol Per Protocol Propofol 1,000 mg in 100 m ls @ 0 mls/hr 09/09/22 03:45 09/10/22 08:33 Diprivan IV 30 mcg/kg/min .Q0M ST[place]ING 31.14 mls/hr Administration Protocol Per Protocol Fentanyl 2,500 mcg / Sodium 250 mls @ 0 mls/h r 09/09/22 04:45 09/09/22 13:56 Chloride IV 30 mcg/hr .Q0M ST[place] 3 mls/hr Titration Protocol Per Protocol Piperacillin Sod/T azobactam 50 mls @ 12.5 mls /hr 09/10/22 08:00 09/10/22 07:58 Sod 2.25 gm/ Sod ium Chloride IV 12.5 mls/hr Q8H [place] Administration Ondansetron HCl 4 mg 09/06/22 10:41 09/08/22 16:34 Ondansetron 2 Mg /Ml Sdv 2 Ml IVP 4 mg Q8H PRN Administration vomiting, or N/V if npo Vitals/I&O/Wt Last Vital Signs Temp 97.9 F 09/19/22 20:00 Pulse 103 H 09/20/22 12:30 Resp 22 H 09/20/22 11:17 BP 163/95 09/20/22 12:30 Pulse Ox 91 09/20/22 12:30 O2 Del Method 09/20/22 11:16 O2 Flow Rate 6 09/08/22 09:00 FiO2 45 09/20/22 11:17 09/19/22 09/20/22 09/20/22 22:59 06:59 14:59 Intake Total 2268.916 / 3216.349 533.210 / 3749.559 300 / 300 Output Total 2137 / 2487 1350 / 3837 Balance 131.916 / 729.349 -816.790 / -87.441 300 / 300 Weight last 48 hrs Weight 362 lb Weight 375 lb 3.628 oz Weight 362 lb Weight 376 lb 12.32 oz Physical Exam Narrative: PHYSICAL EXAM: General: Morbidly obese, young female, lying in bed, sedated and intubated-opens eyes and follows commands HEENT:NCAT, PERRLA, EOMI Neck: Supple Lungs: Bilateral diffuse crackles Heart: s1/s2, RRR Abd: soft, NT, ND, BS + Normoactive Extremities: No edema, right forearm infiltrated REGULATORY AFFAIRS ASSISTANT: sedated and limited REGULATORY AFFAIRS ASSISTANT exam possible. SKIN: Stage II ulcer dorsum of right hand LDA: # HD Cath : Right IJ 09/11/2022 # A line: 09/08/2022 left radial artery #CVC: Right femoral line 09/08/2022 Urinary Catheter Management: Cha: Cath Placed During This Visit: yes Reason for Continuing Indwelling Catheter: Accurate Measurement of Urinary Output in Critically Ill Patients Urinary Catheter Date of Insertion: 09/08/22 Urinary Catheter Time of Insertion: 10:29 Data 09/20/22 03:10 09/20/22 03:10 Other Labs: Radiology Impressions Duplex Scan Upper Extremity Artery 09/08/22 20:22 IMPRESSION: 1. No evidence for major vessel occlusion or significant stenosis. 2. Other details discussed above. Venous Duplex 09/08/22 20:31 IMPRESSION: No evidence of acute right upper extremity DVT. Renal Ultrasound 09/09/22 05:33 IMPRESSION: 1. No hydronephrosis of either kidney. 2. Technologist notes somewhat limited evaluation of the kidneys, due to patient condition and body habitus. 3. Other details discussed above. Chest CTA 09/13/22 10:26 IMPRESSION: 1. Very limited exam due to artifact from CT bore contact. 2. Nondiagnostic evaluation of the pulmonary arteries. 3. Complete atelectasis of both lower lobes and partial atelectasis of the left upper lobe. 4. Cardiac enlargement. 5. Enlarged main pulmonary artery suggests pulmonary hypertension. 6. Lexus hepatis and gastrohepatic ligament lymphadenopathy is partially imaged. Recommend follow-up abdomen pelvis CT. 7. Satisfactory position of lines and tubes. KUB X-Ray 09/20/22 08:46 IMPRESSION: 1. No acute process noted. 2. Enteric tube in place appearing to end in the body the stomach. Chest X-Ray 09/20/22 08:47 IMPRESSION: 1. Bilateral pulmonary infiltrates showing little change since the last exam. 2. Cardiac enlargement unchanged. 3. ET tube and enteric tube in in place as noted above. Laboratory Results WBC 10.6 10^3/uL (4.0-10.0) H 09/20/22 15:41 RBC 4.20 10^6/uL (4.1-5.3) 09/20/22 15:41 Hgb 11.5 g/dL (11.5-15.3) 09/20/22 15:41 Hct 37.0 % (37.0-47.0) 09/20/22 15:41 MCV 88.1 fl (81-99) 09/20/22 15:41 MCH 27.4 pg (28.0-34.0) L 09/20/22 15:41 MCHC 31.1 g/dL (30.0-36.0) 09/20/22 15:41 RDW 13.3 % (12.1-15.1) 09/20/22 15:41 Plt Count 206 10^3/cmm (130-400) 09/20/22 15:41 MPV 9.6 fL (7.4-10.4) 09/20/22 15:41 Neut % (Auto) 76.7 % 09/20/22 15:41 Lymph % (Auto) 11.3 % 09/20/22 15:41 [place] % (Auto) 6.7 % 09/20/22 15:41 Eos % (Auto) 0.5 % 09/20/22 15:41 Baso % (Auto) 0.6 % 09/20/22 15:41 Neut # (Auto) 8.10 10^3/uL (1.8-7.7) H 09/20/22 15:41 Lymph # (Auto) 1.2 10^3/uL (0.8-4.8) 09/20/22 15:41 [place] # (Auto) 0.7 10^3/uL (0.2-0.9) 09/20/22 15:41 Eos # (Auto) 0.1 10^3/uL (0.0-0.8) 09/20/22 15:41 Baso # (Auto) 0.1 10^3/uL (0.0-0.1) 09/20/22 15:41 Nucleated RBC % (auto) 0 % 09/20/22 15:41 Nucleated RBCs # 0.0 /100WBC 09/20/22 15:41 APTT 43.5 SECONDS (23.9-36.7) H 09/20/22 03:10 D-Dimer 3.78 ug/mIFEU (0-0.59) H 09/15/22 17:57 Specimen Type Arterial 09/20/22 12:53 Sample Site Radial, left 09/20/22 04:00 ABG pH 7.32 (7.35-7.45) L 09/20/22 12:53 ABG pCO2 39.4 mmHg (35-45) 09/20/22 12:53 ABG pO2 91.6 mmHg (80.0-100.0) 09/20/22 12:53 ABG HCO3 20.1 mmol/L (22-26) L 09/20/22 12:53 ABG O2 Saturation 97.5 09/20/22 12:53 ABG Base Excess -5.6 mmol/L (-2.0-2.0) L 09/20/22 12:53 [place] Test N/a 09/20/22 12:53 A-a O2 Gradient 23.7 mmHg (5-10) H 09/20/22 12:53 Hematocrit 35.3 % (37-47) L 09/20/22 12:53 Hgb O2 Saturation 95.9 % (95-100) 09/20/22 12:53 Carboxyhemoglobin 1.3 %THgb (0.4-20.1) 09/20/22 12:53 Methemoglobin 0.4 % (0.4-1.5) 09/20/22 12:53 Total Hemoglobin 11.5 g/dL (12-16) L 09/20/22 12:53 Sodium 138.0 mmol/L (131-143) 09/20/22 12:53 Potassium 3.5 mmol/L (3.5-5.0) 09/20/22 12:53 Glucose 93.0 mg/dL (70-115) 09/20/22 12:53 Ionized Calcium 1.2 mmol/L (1.1-1.4) 09/20/22 12:53 O2 Delivery Device Vent 09/20/22 12:53 O2 Liters/Min 7.0 % 09/08/22 15:57 SIMV 18.0 09/20/22 04:00 FiO2 45.0 % 09/20/22 12:53 Tidal Volume 0.42 09/20/22 12:53 PEEP 10.0 cmH20 09/20/22 12:53 Ager Tender ID Cak 09/20/22 12:53 Sodium 133 mmol/L (136-145) L 09/20/22 03:10 Potassium 4.6 mmol/L (3.5-5.1) 09/20/22 03:10 Chloride 95 mmol/L (98-107) L 09/20/22 03:10 Carbon Dioxide 23 mmol/L (22-29) 09/20/22 03:10 Anion Gap 19.6 (5-19) H 09/20/22 03:10 BUN 73 mg/dL (6-20) H 09/20/22 03:10 Creatinine 4.3 mg/dL (0.5-0.9) H 09/20/22 03:10 GFR Calculation 11.3 mL/min (90-130) L 09/20/22 03:10 Glucose 120 mg/dL (65-115) H 09/20/22 03:10 POC Glucose 99 mg/dL (70-110) 09/20/22 16:13 Estimat Average Glucose 114 09/12/22 03:59 Hemoglobin A1c 5.6 % (4.0-6.0) 09/12/22 03:59 Calculated Osmolality 299 mOsm/kg (285-295) H 09/20/22 03:10 Lactic Acid 1.6 mmol/L (0.5-2.2) 09/08/22 09:06 Calcium 9.4 mg/dL (8.5-10.5) 09/20/22 03:10 Phosphorus 5.9 mg/dL (2.5-4.5) H 09/11/22 05:57 Magnesium 2.1 mg/dL (1.7-2.3) 09/07/22 04:38 Iron 46 ug/dL (37-145) 09/11/22 05:57 TIBC 271 mcg/dl 09/11/22 05:57 % Saturation 16.9 % (20-50) L 09/11/22 05:57 Unsat Iron Binding 225 ug/dL (112-347) 09/11/22 05:57 Total Bilirubin 0.4 mg/dL (0.15-1.2) 09/20/22 03:10 AST 16 U/L (0-32) 09/20/22 03:10 ALT 18 U/L (0-33) 09/20/22 03:10 Alkaline Phosphatase 55 U/L (35-105) 09/20/22 03:10 Creatine Kinase 225 U/L (26-192) H 09/10/22 03:30 CK-MB (CK-2) 14.9 ng/mL (0-5.34) H 09/10/22 03:30 CK-MB (CK-2) Rel Index 6.6 % (0.0-10.4) 09/10/22 03:30 NT-Pro-B Natriuret Pep 1494 pg/mL (0-125) H 09/11/22 05:57 Total Protein 7.0 g/dL (6.6-8.7) 09/20/22 03:10 Albumin 3.9 g/dL (3.5-5.2) 09/20/22 03:10 Globulin 3.1 g/dL (1.3-4.6) 09/20/22 03:10 Triglycerides 313 mg/dL (0-150) H 09/12/22 03:59 Cholesterol 140 mg/dL (0-200) 09/12/22 03:59 LDL Cholesterol, Calc 49 mg/dL (50-129) L 09/12/22 03:59 Total VLDL Cholesterol 63 mg/dL (0-30) H 09/12/22 03:59 HDL Cholesterol 28 mg/dL (60-100) L 09/12/22 03:59 Cholesterol/HDL Ratio 5.00 mg/dL (0.0-4.40) H 09/12/22 03:59 Vitamin B12 514 pg/mL (232-1245) 09/11/22 05:57 Folate 8.9 ng/mL (4.8-37.3) 09/11/22 05:57 Procalcitonin 0.35 ng/mL (0-0.5) 09/08/22 09:06 TSH 18.45 uIU/mL (0.27-4.20) H 09/15/22 02:38 Free T4 0.60 ng/dL (0.82-1.77) L 09/15/22 02:38 Free T3 2.2 PG/ML (2.0-4.4) 09/11/22 05:57 Random Cortisol 2.67 ug/dL (2.47-19.5) 09/15/22 02:38 Urine Color Yellow (Yellow) 09/17/22 12:15 Urine Appearance Hazy (CLEAR) A 09/17/22 12:15 Urine pH 8 (5-7) H 09/17/22 12:15 Ur Specific [place] 1.010 (1.005-1.030) 09/17/22 12:15 Urine Protein Trace (Negative) 09/17/22 12:15 Urine Glucose (UA) Norm (Normal) 09/17/22 12:15 Urine Ketones Negative (Negative) 09/17/22 12:15 Urine Blood 3+ (Negative) H 09/17/22 12:15 Urine Nitrate Negative (Negative) 09/17/22 12:15 Urine Bilirubin Neg (Negative) 09/17/22 12:15 Prot Sulfosalicylic Acd Positive (Negative) 09/17/22 12:15 Urine Urobilinogen Norm mg/dL (Negative) 09/17/22 12:15 Ur Leukocyte Esterase 2+ (Negative) H 09/17/22 12:15 Urine RBC 25-40 /hpf (0-2) H 09/17/22 12:15 Urine WBC 55-80 /hpf (0-5) H 09/17/22 12:15 Ur Squamous Epith Cells 25-40 /hpf (0-5) H 09/17/22 12:15 Ur Transition Epith Cell 0-4 /hpf 09/10/22 12:30 Amorphous Sediment Not Reportable 09/17/22 12:15 Urine Bacteria 2+ /hpf (NONE) H 09/17/22 12:15 Urine Yeast 2+ /hpf H 09/17/22 12:15 Ur Random Sodium 93 mmol/L 09/09/22 01:10 Urine Creatinine 51 mg/dL (28-217) 09/09/22 01:10 Nasal Influ A H1 2008 PCR Not detected (NOT DETECT) 09/08/22 08:45 Bronch Specimen Source Left lower lobe 09/13/22 18:40 Bronchial Fluid Color Red 09/13/22 18:40 Bronchial Fluid Appearance Bloody (CLEAR) 09/13/22 18:40 Bronchial Fluid WBC 1361 /uL 09/13/22 18:40 Bronchial Fluid RBC 900 10^3/uL 09/13/22 18:40 Bronch Cells Counted 200 09/13/22 18:40 Bronchial Neutrophils 72.00 % (0.9-2.3) H 09/13/22 18:40 Bronchial Lymphocytes 26.00 % (10.71-12.91) H 09/13/22 18:40 Bronchial Eosinophils 1.00 % (0.13-0.25) H 09/13/22 18:40 Bronchial Macrophages 1.00 % (83.6-86.8) L 09/13/22 18:40 Bronchial Diff Comment Yes 09/13/22 18:40 Random Vancomycin 19.5 ug/mL (20.0-40.0) L 09/19/22 03:38 Adenovirus (PCR) Not detected (NOT DETECT) 09/08/22 08:45 C. pneumoniae DNA (PCR) Not detected (NOT DETECT) 09/08/22 08:45 Coronavirus 229E (PCR) Not detected (NOT DETECT) 09/08/22 08:45 Hepatitis A IgM Ab Non-reactive (Nonreactive) 09/11/22 05:57 Hep Bs Antigen Non-reactive (Nonreactive) 09/11/22 05:57 Hep Bs Antibody 12.8 (11.5-1000) 09/11/22 05:57 Hep B Core Total Ab Non-reactive (Nonreactive) 09/11/22 05:57 Hepatitis C Antibody Non-reactive (Nonreactive) 09/11/22 05:57 Human Metapneumovir PCR Not detected (NOT DETECT) 09/08/22 08:45 Influenza A (H1) PCR Not detected (NOT DETECT) 09/08/22 08:45 Influenza A (H3) PCR Not detected (NOT DETECT) 09/08/22 08:45 Influenza Type A (PCR) Not detected (NOT DETECT) 09/08/22 08:45 Influenza Type B (PCR) Not detected (NOT DETECT) 09/08/22 08:45 M. pneumoniae (PCR) Not detected (NOT DETECT) 09/08/22 08:45 Parainfluenza 1 (PCR) Not detected (NOT DETECT) 09/08/22 08:45 Parainfluenza 2 (PCR) Not detected (NOT DETECT) 09/08/22 08:45 Parainfluenza 3 (PCR) Not detected (NOT DETECT) 09/08/22 08:45 Parainfluenza 4 (PCR) Not detected (NOT DETECT) 09/08/22 08:45 RSV Type A (PCR) Not detected (NOT DETECT) 09/08/22 08:45 RSV Type B (PCR) Not detected (NOT DETECT) 09/08/22 08:45 Entero/Rhino (PCR) Not detected (NOT DETECT) 09/08/22 08:45 SARS-CoV-2 (PCR) Not detected (NOT DETECT) 09/08/22 08:45 Micro: Microbiology 09/19/22 15:55 Blood Culture - Preliminary Blood 09/20/22 02:56 C.difficile Toxin B Gene (PCR) - Final Stool Routine Collection 09/19/22 15:55 Blood Culture - Preliminary Blood SPECIMEN COLLECTED 09/16/22 13:27 Blood Culture - Preliminary Blood Staphylococcus sp coag neg 09/17/22 16:30 Urine Culture - Final Urine Catheterized A&P Assessment and plan (1) Acute respiratory failure with hypoxia and hypercapnia: (2) Obstructive sleep apnea: (3) Pneumonia: (4) Flash pulmonary edema: (5) Acute kidney injury: (6) ARDS (adult respiratory distress syndrome): (7) GI bleed: (8) Open wound of right hand: Plan ASSESSMENT/PLAN:Overall: 42-year-old young female with past medical history of hypertension-noncompliant with her medications-initially comes with hypertensive emergency with flash pulmonary edema-treated with nicardipine drip-becomes hypotensive-started on pressors and antibiotics for presumed sepsis. She went into respiratory failure requiring mechanical ventilation support. She also developed BRIDGETTE requiring temporary hemodialysis. NEURO: #Sedation-currently on fentanyl and Versed gtt. -We will taper off Versed today and will start coming down on fentanyl PULM: #Acute hypoxic and hypercapnic respiratory failure-probably there is a chronic component given her morbid obesity #?? Possible ARDS -Acute component secondary to flash pulmonary edema due to hypertensive emergency - -FiO2 requirement nicely coming down currently at 45 %; PEEP down to 10-patient tolerating SIMV -We will continue to taper down FiO2/PEEP requirements -We will continue to monitor with serial ABG -She underwent CTA for increasing oxygen requirements-there was a lot of motion artifact and CT was nondiagnostic for pulmonary arteries. There is moderate cardiac enlargement and enlarged main pulmonary artery suggesting pulmonary hypertension. There was partial atelectasis of left upper lobe and complete atelectasis of both lower lobes. -We are holding her IV heparin due to coffee-ground NG secretions as well as rectal secretions -She underwent bronchoscopic evaluation for airways 09/13/2022-there were thick mucus secretions in bilateral lower lobes which were suctioned-BAL neutrophils predominant-final cultures negative -She is on scheduled nebulization with DuoNeb as well as Pulmicort -Currently she is on Bumex 2 Mg Q8 over follow-up fluid overload-and temporary hemodialysis as per renal team -We will continue with awakening and breathing trials CVS: #Hypertensive emergency-treated with nicardipine drip-resolved #Circulatory shock-likely secondary to possible nicotine toxicity or demand ischemia due to underlying? Sepsis -Currently requiring intermittently requiring Levophed -Echocardiogram during admission showed normal LV size, systolic function with EF 60%. Grade 1 diastolic dysfunction. -Elevated BNP -We will continue with Bumex 2 Mg every 8 hours and fluid removal through temporary hemodialysis -Continue close hemodynamic and cardiac monitoring GI: #Diet: N.p.o. due to coffee-ground GI secretions #GI prophylaxis: PPI every 2 well #LFTs: elevated - monitor RENAL: #BRIDGETTE-most likely prerenal secondary to ischemic ATN due to hypotension/? Contrast-induced nephropathy -- Currently on daily hemodialysis for 3 hours as per renal team to achieve net negative fluid balance -Electrolytes are acceptable but her BUN/creatinine kind of plateaued and unfortunately her urine output is not very encouraging which could also be due to at least 3 L being taken out through dialysis -Currently on Bumex 2 Mg 3 times daily -She is requiring daily hemodialysis-she may may be dependent on hemodialysis for neck several days-nephrology on board and if they agree-we will consult general surgery for tunneled hemodialysis catheter placement HEM: Neck #GI bleed -PPI every 12 hours and sucralfate -H&H stable -We will monitor H&H -Held her IV heparin #Leukocytosis-improving #H&H stable #Normal platelets ENDO: #Significantly elevated TSH-suspect hypothyroidism-patient on levothyroxine 50 mcg q. p.o. daily-she may need to follow-up as outpatient #Normal blood sugars #Possible underlying adrenal insufficiency-currently on stress dose steroids ID: #Presumably met sepsis criteria #Low-grade temperature spikes- #Stage II ulcer on dorsum of hand-surgery to evaluate -Pulmonary infiltrates on imaging-with leukocytosis-and hypotension-there was a suspicion if it is all septic shock secondary to pneumonia; -However infiltrates can be explained with fluid overload, hypotension secondary to Cardene drip -Patient procalcitonin is low -Repeat blood cultures sent today 09/16/22 -06/28 bottle coagulase-negative staph-likely contaminant -Back on vancomycin and Zosyn -BAL neutrophil predominance-final cultures negative Code Status: Full code Disposition: ICU Critically ill: Yes MD discussed with: Hospitalist, RN, RT taking care of the patient ICU CHECKLIST: Problem list updated Verbal orders reviewed and signed Analgesia: Fentanyl Glycemic Control: N/A Nutrition: TF nephro Restraint Renewal (within 24 hrs): Yes Ulcer Prophylaxis: PPI Chemical Thromboprophylaxis: Prophylaxis: Heparin Mechanical Thromboprophylaxis: SCDs Need for Central line: Yes for multiple medications Need for Cha catheter: Yes for urine output monitoring Attestations Medical Necessity Statement*: Acute hypoxic/hypercapnic respiratory failure secondary to fluid overload due to hypertensive emergency-requiring mechanical ventilation; will continue to monitor at least 48 hours in ICU Critical Care Time: This patient has a high probability of? clinically sig nificant, sudden o r life threatening deterioration of the patient's (jonathan rological/pulmonar y/cardiac/renal/ID /endocrine) system s required my full , direct attention , the highest leve l of physician pre paredness for urge nt intervention an d personal managem ent.? I managed/meade pervised life or o rgan supporting in terventions that r equired frequent p hysician assessmen t.? I devoted my f ull attention in t he ICU to the dire ct care of this segun humphrey for the kareen od of time indicat ed above.? Time I spent with family or surrogate(s) is included only if the patient was in capable of providi ng necessary infor mation or particip ating in decision making.? This annie e includes the [facility] services pr ovided: Telemetry review Mechanical Ventilation Hemod ynamic interpretat ion, assessment an d management Revie w and interpretati on of CXR Review a nd interpretation of lab values Revi ew and interpretat ion of microbiolog ic data and cultur e results Review o f medications and administration Rev iew and interpreta tion of Nutrition requirements and m anagement Discussi on of management w ith other consulta nts and services C linical update to family members [x ] Data and vital s ign review and int erpretation [x] Segun humphrey assessment, examination and in tervention [x] Doc umentation [x] Med ication orders and management Time spent for teaching as well as perfor aydin procedures ar e billed separatel y and is not inclu ded in this note ? Critical Care Annie e (min): 57 Procedures Arterial Line Size (Gauge): 20 Coding Level of Care Code Acute Code for Chg Fwd Diagnoses Acute respiratory failure with hypoxia and hypercapnia J96.01; J96.02 Obstructive sleep apnea G47.33 Pneumonia J18.9 Flash pulmonary edema J81.0 Acute kidney injury N17.9 ARDS (adult respiratory distress syndrome) J80 GI bleed K92.2 Open wound of right hand S61.401A Time Spent (min) 57
--- NOTE | 2022-09-20 14:21 | PM.PN ---
Subjective Subjective: Patient now having melanotic stools Vitals/I&O/Wt Last Vital Signs Temp 98.4 F 09/21/22 04:00 Pulse 84 09/21/22 07:49 Resp 16 09/21/22 07:42 BP 166/82 09/21/22 05:00 Pulse Ox 93 09/21/22 07:42 O2 Del Method 09/21/22 07:35 O2 Flow Rate 6 09/08/22 09:00 FiO2 35 09/21/22 07:42 09/20/22 09/21/22 09/21/22 22:59 06:59 14:59 Intake Total 396.164 / 738.681 125.667 / 864.348 Output Total 1999 900 / 2900 Balance -1603.836 / -1261.319 -774.333 / -2035.652 Weight last 48 hrs Weight 362 lb Weight 362 lb Weight 375 lb 3.628 oz Physical Exam Narrative: General: No acute distress, intubated Abdomen: Soft, nontender, nondistended Urinary Catheter Management: Cha: Cath Placed During This Visit: yes Reason for Continuing Indwelling Catheter: Accurate Measurement of Urinary Output in Critically Ill Patients Urinary Catheter Date of Insertion: 09/08/22 Urinary Catheter Time of Insertion: 10:29 Data 09/21/22 03:23 09/21/22 03:23 Micro: Microbiology 09/20/22 02:56 Stool Lactoferrin - Final Stool Occult Blood (FIT) - Final 09/19/22 15:55 Blood Culture - Preliminary Blood NEGATIVE TO DATE 09/19/22 15:55 Blood Culture - Preliminary Blood 09/20/22 02:56 C.difficile Toxin B Gene (PCR) - Final Stool Routine Collection A&P Assessment and plan (1) Dialysis patient: (2) GI bleed: Plan Permacath placement The risks and benefits of the procedure, including but not limited to, bleeding, infection, infection requiring Mediport removal antibiotic therapy and repeat surgery, damage to surrounding structures, scar, numbness, pain, pneumothorax requiring thoracostomy tube, were explained to the patient. He/She is understanding of the risks and wishes to proceed. EGD The risks and benefits of the procedure, including bleeding, infection, intestinal perforation requiring surgery, missed lesion were explained to the patient. The patient is understanding of the risks and wishes to proceed. Attestations Medical Necessity Statement*: Per primary Procedures Arterial Line Size (Gauge): 20 Coding Level of Care Code Acute Code for Chg Fwd Diagnoses Dialysis patient Z99.2 GI bleed K92.2
[2022-09-20 15:50] LABS: Basophils # 0.1 10^3/uL (0.0-0.1); Basophils % 0.6 %; Eosinophils # 0.1 10^3/uL (0.0-0.8); Eosinophils % 0.5 %; Hemoglobin 11.5 g/dL (11.5-15.3); Lymphocytes # 1.2 10^3/uL (0.8-4.8); Lymphocytes % 11.3 %; Mean Corpuscular HGB Conc 31.1 g/dL (30.0-36.0); Mean Corpuscular Hemoglobin 27.4 pg (28.0-34.0); Mean Corpuscular Volume 88.1 fl (81-99); Mean Platelet Volume 9.6 fL (7.4-10.4); Monocytes # 0.7 10^3/uL (0.2-0.9); Monocytes % 6.7 %; Neutrophils % 76.7 %; Nucleated Red Blood Cells % 0 %; Platelet Count 206 10^3/cmm (130-400); Red Cell Distribution Width 13.3 % (12.1-15.1); White Blood Count 10.6 10^3/uL (4.0-10.0)
--- NOTE | 2022-09-20 15:53 | P.PN_ITS ---
Subjective Subjective: Patient was seen this morning she is on Versed, and fentanyl for sedation she does open up her eyes, she does squeeze my fingers on the left, he is on 1 of Levophed, afebrile, currently 65, Vitals/I&O/Wt Last Vital Signs Temp 97.9 F 09/19/22 20:00 Pulse 91 09/20/22 15:48 Resp 22 H 09/20/22 15:43 BP 106/71 09/20/22 15:30 Pulse Ox 92 09/20/22 15:43 O2 Del Method 09/20/22 15:40 O2 Flow Rate 6 09/08/22 09:00 FiO2 45 09/20/22 15:43 09/20/22 09/20/22 09/20/22 06:59 14:59 22:59 Intake Total 533.210 / 3749.559 300 / 300 Output Total 1350 / 3837 Balance -816.790 / -87.441 300 / 300 Weight last 48 hrs Weight 164.2 kg Weight 170.2 kg Weight 164.2 kg Weight 170.9 kg Physical Exam Const: COMMON NORMALS: no acute distress OTHER: Pupils equal round reactive to light Endotracheal tube in place Arterial line in place Right dialysis catheter in place Cha catheter in place Resp: COMMON NORMALS: normal respiratory effort, No retractions, No use of accessory muscles and clear to auscultation bilaterally AUSCULTATION: clear to auscultation bilaterally Cardio: COMMON NORMALS: regular rate, regular rhythm, S1 normal heart sound present and S2 normal heart sound present RATE: regular rate RHYTHM: regular rhythm HEART SOUNDS: S1 normal heart sound present and S2 normal heart sound present GI: COMMON NORMALS: Normal to inspection, nondistended, normoactive bowel sounds present and non-tender Extremity: COMMON NORMALS: no pedal edema NARRATIVE EXTREMITY EXAM: - Right hand, open excoriation, area of superficial skin breakdown area of IV infiltration measuring 3 x 4 cm round Psych: COMMON NORMALS: mental status grossly normal Urinary Catheter Management: Cha: Cath Placed During This Visit: yes Reason for Continuing Indwelling Catheter: Accurate Measurement of Urinary Output in Critically Ill Patients Urinary Catheter Date of Insertion: 09/08/22 Urinary Catheter Time of Insertion: 10:29 Data 09/20/22 15:41 09/20/22 03:10 Micro: Microbiology 09/19/22 15:55 Blood Culture - Preliminary Blood 09/20/22 02:56 C.difficile Toxin B Gene (PCR) - Final Stool Routine Collection 09/19/22 15:55 Blood Culture - Preliminary Blood SPECIMEN COLLECTED 09/16/22 13:27 Blood Culture - Preliminary Blood Staphylococcus sp coag neg A&P Assessment and plan (1) ARDS (adult respiratory distress syndrome): (2) Shock: (3) Acute respiratory failure with hypoxia and hypercapnia: (4) Obstructive sleep apnea: (5) CHF (congestive heart failure): Qualifiers: Heart failure type: diastolic Heart failure chronicity: acute on chronic Qualified Code(s): I50.33 - Acute on chronic diastolic (congestive) heart failure (6) Dialysis patient: (7) Acute kidney injury: (8) S/P bronchoscopy with bronchoalveolar lavage: On 09/13. Encountered high mucus in left lower lobe. Follow cultures. Patient desaturated during procedures to high 70s and low 80s but otherwise tolerated procedure well. (9) Pneumonia: (10) Sepsis: (11) Flash pulmonary edema: (12) Hypertensive emergency: (13) Essential hypertension: (14) Fever: (15) Goals of care, counseling/discussion: (16) Ventilator dependent: (17) Open wound of right hand: (18) GI bleed: Plan 42 year old female with known past medical history of hypertension noncompliant with antihypertensive medication, morbid obesity, was accepted as a direct transfer, she was initially admitted for the management of substernal chest pain, associated with acute onset of worsening shortness of breath. Assessment: ARDS: Hypoxic and hypercapnic respiratory failure: Currently intubated. Most likely in setting of decompensated congestive heart failure in setting of hypertensive emergency and acute kidney dysfunction in setting of obstructive sleep apnea and pneumonia. Respiratory rate was increased, with increased PEEP, repeat ABG shows pH 7.32, PCO2 91.7 Continue with Bumex to 2 mg 3 times daily. Negative around 10.9 L today. Fluid restriction as much as possible Hold off on tube feeds for now to reduce fluid intake. Concern for fluid overload with possible mucous and left lower lobe for which she underwent bronchoscopy. Poor study for pulmonary embolism given movement artifacts. Repeat D-dimer still elevated and given patient requiring high oxygen supplementation even after maximum treatment for now, heparin drip currently on hold due to dark tarry stools Monitor daily weights. Echocardiogram done during hospitalization shows EF of 60% with grade 1 diastolic dysfunction. Patient will need an outpatient sleep study to quantify sleep apnea. Patient will most likely need to be extubated and discharged on BiPAP. Continue vancomycin, Zosyn Fever: Afebrile, last 24 hours Blood cultures growing coag negative staph in 1 out of 4 bottles. Likely can dominate. But given critical sickness for now we will repeat blood cultures from all the lines including arterial line, femoral line, HD catheter. Multiple lines all done within the last 1 week. For now empirically continue with vancomycin and Zosyn. Previously blood cultures so far negative. Bron cultures negative. Urine Legionella, bacterial antigen negative. Urine culture benign. Sputum culture negative. MRSA swab negative. BRIDGETTE : Possibly secondary to ATN secondary to sepsis, in the setting of acute hypotension, versus possibly secondary to antihypertensive effects. Possible contrast-induced nephropathy as she has received a CTA recently, possible AIN Continue daily dialysis for now. Bumex 2 mg every 8 hourly. Appreciate nephrology recommendations. We will have a permacath placed today, likely to assess tomorrow Given patient being ventilator dependent with difficult extubation given multiple comorbidities it would be best for patient to be as net negative as possible. Sepsis secondary to hospital-acquired pneumonia: Currently septic Sepsis during admission which was ruled in with elevated white cell count, hypotensive, target organ dysfunction with increasing oxygen requirement and eventual intubation, need for vasopressor support, x-ray chest showing possible infiltrates. Wean Levophed while keeping mean arterial pressure over 65. Saturation over 92%. Continue with sedation with fentanyl and Versed for now. Continue vancomycin and Zosyn Continue hydrocortisone 100 mg IV push every 12 hours Follow cultures Subclinical hypothyroidism: TSH still elevated. Free T4 levels below normal. Check cortisol were suboptimally normal. Hydrocortisone been weaned down. Will monitor response and plan to wean gradually. Monitor blood sugars. Hypertension with hypertensive emergency with flash pulmonary edema on admission: Resolved Blood pressure is better controlled. We will continue to monitor blood pres sures and start treatment accordingly. Goal blood pressure less than 140/ 90 mmHg with mean over 65 Right upper extremity swelling: DVT ruled out. Does have blister on the dorsum of right hand due to infiltration of IV antibiotics. Continue to monitor. Right hand -Area of IV infiltration, I was told it was Zosyn -Area of open excoriation, concerns for underlying necrosis well demarcated borders, -Continue broad-spectrum antibiotic therapy -Continue wound care -At some point and will need to be debrided Concerns for GI bleed -Patient's OG tube, and rectal tube output has been black and tarry -Hemoccult stool pending -KUB negative for bowel obstruction, keep n.p.o. -Continue Protonix 40 IV twice daily, Carafate -Monitor hemoglobin closely repeat level at 4 PM -Heparin drip on hold -Spoke to general surgery, Dr. Prescott, will perform EGD this evening Sedation: Versed and fentanyl Glycemic control: Hypoglycemia protocol Nutrition: Hold off on tube feeds for now to restrict fluid intake. Was on goal of 60 cc/h. CODE STATUS: Discussed in detail with patient mother and who is the DPOA at bedside. Patient is full code. We discussed need for dialysis for quick improvement. Family verbalized understanding and are agreeable. PUD prophylaxis: Protonix DVT prophylaxis: SCDs, heparin drip on hold Discharge planning: Likely will require LTAC placement Continue with care at ICU Plan for the day: Ventilator settings adjusted, increase PEEP, respiratory rate and repeat ABG Can plan for sedation vacation and possible weaning trials within next 24 to 48 hours. Continue to wean sedation, monitor mentation, has issues with restrictions Permacath to be placed today EGD to be placed today Likely dialysis tomorrow Monitor hemoglobin Keep mean artery pressure 65. Follow-up repeat cultures being sent today from all the lines. Continue with vancomycin and Zosyn for now. Continue with hydrocortisone 100 mg every 12 hourly. Spoke to pulmonary Spoke to general surgery Spoke to nursing staff Attestations Medical Necessity Statement*: Patient requires sedation for acute respiratory distress syndrome, now with acute renal failure, GI bleed Procedures Arterial Line Size (Gauge): 20 Coding Level of Care Code Critical Care >/= 30 minutes Critical care time (in minutes): 50 The high probability of a clinically significant, sudden or life threatening deterioration, as referenced in this documentation, required my full and direct attention, intervention and personal management. The critical care time shown is in addition to time spent performing any reported separately billable procedures and includes the following: [x] Data and vital sign review and interpretation [x ] Patient assessment, examination and intervention [x] Medication orders and management [x] Patient/Family updates as able [x] Care Coordination and Documentation. Diagnoses ARDS (adult respiratory distress syndrome) J80 Shock R57.9 Acute respiratory failure with hypoxia and hypercapnia J96.01; J96.02 Obstructive sleep apnea G47.33 CHF (congestive heart failure) I50.33 Heart failure type: diastolic Heart failure chronicity: acute on chronic Dialysis patient Z99.2 Acute kidney injury N17.9 S/P bronchoscopy with bronchoalveolar lavage Z98.890 Pneumonia J18.9 Sepsis A41.9 Flash pulmonary edema J81.0 Hypertensive emergency I16.1 Essential hypertension I10 Fever R50.9 Goals of care, counseling/discussion Z71.89 Ventilator dependent Z99.11 Open wound of right hand S61.401A GI bleed K92.2
[2022-09-20 16:16] LABS: Glucose Point of Care 99 mg/dL (70-110)
[2022-09-20] MEDS: sucralfate 1 gm Tablet PO (17:39)
--- NOTE | 2022-09-20 18:15 | PM.PN ---
Subjective Subjective: on 45 % FIO2 Medications: Reviewed: Yes Vitals/I&O/Wt Last Vital Signs Temp 98.1 F 09/20/22 16:00 Pulse 94 09/20/22 18:00 Resp 22 H 09/20/22 17:29 BP 93/50 09/20/22 18:00 Pulse Ox 93 09/20/22 18:00 O2 Del Method 09/20/22 15:40 O2 Flow Rate 6 09/08/22 09:00 FiO2 40 09/20/22 17:29 09/20/22 09/20/22 09/20/22 06:59 14:59 22:59 Intake Total 533.210 / 3749.559 342.517 / 342.517 346.164 / 688.681 Output Total 1350 / 3837 1100 / 1100 Balance -816.790 / -87.441 342.517 / 342.517 -753.836 / -411.319 Weight last 48 hrs Weight 164.2 kg Weight 170.2 kg Weight 164.2 kg Physical Exam Narrative: intubated sedated + edema Urinary Catheter Management: Cha: Cath Placed During This Visit: yes Reason for Continuing Indwelling Catheter: Accurate Measurement of Urinary Output in Critically Ill Patients Urinary Catheter Date of Insertion: 09/08/22 Urinary Catheter Time of Insertion: 10:29 Data 09/20/22 15:41 09/20/22 03:10 Micro: Microbiology 09/19/22 15:55 Blood Culture - Preliminary Blood NEGATIVE TO DATE 09/19/22 15:55 Blood Culture - Preliminary Blood 09/20/22 02:56 C.difficile Toxin B Gene (PCR) - Final Stool Routine Collection 09/16/22 13:27 Blood Culture - Preliminary Blood Staphylococcus sp coag neg A&P Assessment and plan (1) Acute kidney injury: Plan 1. Acute kidney injury. Different includes contrast nephropathy, sepsis, acute interstitial nephritis, hemodynamic. . Due to high O2 requirement and worsening renal function patient was started on HD. Would like to keep her on a negative fluid balance, s/p HD yesterday, , eval daily for hD needs. baseline creatinine was normal prior to admission at 0.5. Expect pt would require HD for few weeks to months. place tunnelled catheter -will plan for HD in AM 2. Volume overload:HD as above , on bumex 3. Primary respiratory acidosis, hypercapneic respiratory failure on ventilator, 4. sepsis with pneumonia 6. HTN Attestations Medical Necessity Statement*: Patient requires sedation for acute respiratory distress syndrome, now with acute renal failure, GI bleed Procedures Arterial Line Size (Gauge): 20 Coding Level of Care Code Acute Code for Chg Fwd Diagnoses Acute kidney injury N17.9
[2022-09-20] MEDS: artificial tears Op Oint 3.5 gm 1 APPLIC EYE-BOTH (20:50)
[2022-09-20 22:24] LABS: Basophils # 0.1 10^3/uL (0.0-0.1); Basophils % 0.9 %; Eosinophils # 0.1 10^3/uL (0.0-0.8); Hematocrit 36.3 % (37.0-47.0); Hemoglobin 11.5 g/dL (11.5-15.3); Lymphocytes # 2.1 10^3/uL (0.8-4.8); Lymphocytes % 20.6 %; Mean Corpuscular HGB Conc 31.7 g/dL (30.0-36.0); Mean Corpuscular Hemoglobin 27.6 pg (28.0-34.0); Mean Corpuscular Volume 87.3 fl (81-99); Mean Platelet Volume 9.7 fL (7.4-10.4); Monocytes # 0.8 10^3/uL (0.2-0.9); Monocytes % 7.6 %; Neutrophils # 6.73 10^3/uL (1.8-7.7); Neutrophils % 66.2 %; Nucleated Red Blood Cells % 0 %; Platelet Count 222 10^3/cmm (130-400); Red Blood Count 4.16 10^6/uL (4.1-5.3); Red Cell Distribution Width 13.3 % (12.1-15.1); White Blood Count 10.2 10^3/uL (4.0-10.0)
[2022-09-21] VITALS (67 sets, daily range): BP systolic 90–166; BP diastolic 46–108; PULSE 73–123; RESP 16–25; TEMP 36.8–37.8; O2SAT 73–100
[2022-09-21] MEDS: piperacillin-tazobactam 3.375 GM in sodium chloride 0.9% (plus) 50 ML IV ×2 (00:54→12:38)
[2022-09-21] MEDS: bumetanide 0.25 mg/mL SDV 10 mL 2 MG IVP ×3 (01:06→18:09)
[2022-09-21] MEDS: chlorhexidine gluconate 4% Btl 118 mL 1 APPLIC TOPICAL (01:08)
[2022-09-21 01:18] LABS: Glucose Point of Care 103 mg/dL (70-110)
[2022-09-21] MEDS: ipratropium-albuterol 3 mL Neb INHALATION ×5 (03:05→20:05)
[2022-09-21 03:47] LABS: Basophils # 0.1 10^3/uL (0.0-0.1); Basophils % 0.8 %; Eosinophils # 0.1 10^3/uL (0.0-0.8); Eosinophils % 0.5 %; Hematocrit 35.7 % (37.0-47.0); Hemoglobin 11.4 g/dL (11.5-15.3); Lymphocytes # 1.5 10^3/uL (0.8-4.8); Lymphocytes % 14.2 %; Mean Corpuscular HGB Conc 31.9 g/dL (30.0-36.0); Mean Corpuscular Hemoglobin 27.7 pg (28.0-34.0); Mean Corpuscular Volume 86.9 fl (81-99); Mean Platelet Volume 9.8 fL (7.4-10.4); Monocytes # 0.7 10^3/uL (0.2-0.9); Monocytes % 6.6 %; Neutrophils # 7.73 10^3/uL (1.8-7.7); Neutrophils % 73.3 %; Nucleated Red Blood Cells % 0 %; Platelet Count 212 10^3/cmm (130-400); Red Blood Count 4.11 10^6/uL (4.1-5.3); Red Cell Distribution Width 13.5 % (12.1-15.1); White Blood Count 10.5 10^3/uL (4.0-10.0)
[2022-09-21 04:13] LABS: Alanine Aminotransferase 23 U/L (0-33); Albumin Level 3.9 g/dL (3.5-5.2); Alkaline Phosphatase 50 U/L (35-105); Anion Gap 25.9 (5-19); Aspartate Amino Transferase 17 U/L (0-32); C Reactive Protein 10.2 mg/L (0.0-4.9); Calcium 10.1 mg/dL (8.5-10.5); Carbon Dioxide 20 mmol/L (22-29); Chloride 94 mmol/L (98-107); Glomerular Filtration Rate 9.3 mL/min (90-130); Glucose 96 mg/dL (65-115); Magnesium 2.3 mg/dL (1.7-2.3); NT Pro B Type Natriuretic Pept 821 pg/mL (0-125); Osmolality Calculated 313 mOsm/kg (285-295); Potassium 3.9 mmol/L (3.5-5.1); Sodium 136 mmol/L (136-145); Total Bilirubin 0.4 mg/dL (0.15-1.2); Total Protein 6.9 g/dL (6.6-8.7)
[2022-09-21 04:17] LABS: Blood Urea Nitrogen 101 mg/dL (6-20)
[2022-09-21] MEDS: silver sulfadiazine cream 1% 50 gm 1 APPLIC TOPICAL ×2 (05:50→21:56)
[2022-09-21 05:55] LABS: ABG PCO2 34.3 mmHg (35-45); ABG PH Result 7.39 (7.35-7.45); Alveolar-Arterial Oxygen Gradi 18.1 mmHg (5-10); Arterial Blood Gas Hematocrit 35.8 % (37-47); Base Excess ABG -3.7 mmol/L (-2.0-2.0); Blood Gas Operator Identificat JB; Blood Gas Sample Site Not specified; Blood Gas Sample Type Arterial; Blood Gas Tidal Volume 0.42; Carboxyhemoglobin 1.1 %THgb (0.4-20.1); HCO3 ABG 20.6 mmol/L (22-26); HGB O2 Sat 96.9 % (95-100); Ionized Calcium Level - ABG 1.3 mmol/L (1.1-1.4); Methemoglobin 0.9 % (0.4-1.5); Oxygen Device VENT; Oxygen Saturation ABG 98.8; Potassium Level - ABG 3.6 mmol/L (3.5-5.0); Total Hemoglobin 11.7 g/dL (12-16)
--- NOTE | 2022-09-21 06:00 | XR_ITS ---
WS: [id number] Exam: XR chest 1V portable [id number] Date/Time of Exam: 09/21/2022 6:26 AM Reason For Exam: intubated Comparison 09/20/2022. Bilateral pulmonary infiltrates are unchanged. The heart is enlarged. No pneumothorax. ET tube ends a bout 6 cm above the maynor in good position. An enteric tube extends below the level of the diaphragm but the tip is not visible. Again noted is a metallic tip tube seen along the right superior mediast inum that may represent an IJ central line. It is unchanged in location. Bony structures are intact. XR/XR chest 1V portable [id number] IMPRESSION: 1. Bilateral pulmonary infiltrates and cardiac enlargement unchanged. 2. ET tube in satisfactory position. Also noted is an enteric tube and probable central line in place as noted above.
[2022-09-21] MEDS: budesonide 0.5 mg/2 mL Neb INHALATION ×2 (07:35→20:05)
--- NOTE | 2022-09-21 08:06 | W.PM.OPSUD ---
Surgery/Procedure H&P Update DATE OF PROCEDURE: September 21, 2022 DATE H&P PERFORMED: 09/19/22 H&P UPDATE INFORMATION: I have reviewed H&P completed within last 30 days, I have examined patient prior to procedure and No changes to prior documentation PLANNED PROCEDURE: Operation Date: 09/21/22 08:35 Proposed Procedures p Portacath Placement(Not Applicable) - José Miguel Prescott, EGD
--- NOTE | 2022-09-21 09:29 | SUR.OPER ---
0833 wrist restraints released. skin pwd where restraints were placed.
[2022-09-21] MEDS: EPINEPHrine 1 mg/mL INJ XX (09:30)
[2022-09-21] MEDS: lidocaine-epi 2% 20 mL INJ INJECTION (09:40)
[2022-09-21] MEDS: heparin, porcine 1,000 unit/mL INJ 10 mL 10000 UNIT IRRIGATION (10:20)
--- NOTE | 2022-09-21 10:31 | PM.OP ---
Operative Report Date of procedure: September 21, 2022 Pre-op diagnosis: End-stage renal disease GI bleeding Post-op diagnosis: other (End-stage renal disease, bleeding duodenal ulcers) Procedure done: EGD with biopsy and control of bleeding via epinephrine injection Left internal jugular permacath placement Implants: Permacath Surgeon: Dr. José Miguel Prescott DO Anesthesia: General Estimated blood loss (mL): 40 Complications: None apparent Brief History: This is a 42-year-old female who is intubated with acute respiratory distress syndrome and end-stage renal disease along with a GI bleed and melanotic stools, who requires a permacath placement and EGD. The risks and benefits were explained and documented. Procedure: Patient is well in the OR room placed on the OR table in supine position. General anesthesia was achieved by department anesthesia. A timeout was performed. All present were in agreement. The endoscope was obtained and placed into the mouth and down to the esophagus. Is then advanced into the stomach and into the duodenum. In the second portion of the duodenum there were shallow bleeding ulcers. 1 cc of 1 in 10,000 epinephrine was injected into the bleeding ulcer. There was a large shallow ulcer in the duodenal bulb. A cold forceps biopsy was performed on the edge of this. 1 cc of 1 in 10,000 epinephrine was injected to the biopsy site. Hemostasis was noted. Photos were taken of the second portion of duodenum, duodenal bulb, antrum, cardia and distal esophagus at the GE junction. There were no abnormalities in the stomach or esophagus. The bilateral neck and chest were inspected prepped and draped in usual sterile fashion. Under ultrasound, the introducer needle was placed into the left internal jugular vein. The guidewire was then advanced. Fluoroscopy showed that the wire was going to the left arm. Under fluoroscopy I manipulated the wire and was able to get the wire to go down to the left chest. Which is still not appropriate position. I took out the wire and the needle and again advance the introducer needle into the left internal jugular vein under ultrasound guidance. Dark red nonpulsatile blood was returned. Wire was then inserted into the needle and fluoroscopy did show the wire going into the SVC. An 11 blade scalpel was then used to make a shaista incision on the introducer needle. A 15 blade scalpel was used to make a 1 cm vertical incision into the left chest wall. The PermCath was then tunneled up to the incision in the neck. The introducer needle was removed and the wire was serially dilated up to the appropriate size. The split sheath dilator was then placed over the guidewire. The guidewire was removed. The permacath was then advanced into the split sheath. Split sheath was removed. Fluoroscopy identified the permacath in the SVC. It could not be advanced any further and this was the longest permacath we had in the hospital. The permacath was then sewn in place using 2-0 Ethilon. 4-0 Monocryl was used to close the skin. The skin was washed and dried. Dark red nonpulsatile blood flow load freely through each side of the catheter. The catheters were then flushed with dilute and then strong heparin. Caps were applied. Dermabond was applied. Patient tolerated procedure well
[2022-09-21 10:33] LABS: Basophils # 0.1 10^3/uL (0.0-0.1); Basophils % 0.7 %; Eosinophils # 0.2 10^3/uL (0.0-0.8); Eosinophils % 1.5 %; Hematocrit 34.7 % (37.0-47.0); Lymphocytes # 2.8 10^3/uL (0.8-4.8); Mean Corpuscular HGB Conc 31.7 g/dL (30.0-36.0); Mean Corpuscular Hemoglobin 27.8 pg (28.0-34.0); Mean Corpuscular Volume 87.6 fl (81-99); Mean Platelet Volume 9.6 fL (7.4-10.4); Monocytes # 0.8 10^3/uL (0.2-0.9); Monocytes % 6.3 %; Neutrophils # 8.74 10^3/uL (1.8-7.7); Neutrophils % 65.6 %; Nucleated Red Blood Cells % 0 %; Platelet Count 233 10^3/cmm (130-400); Red Blood Count 3.96 10^6/uL (4.1-5.3); Red Cell Distribution Width 13.4 % (12.1-15.1); White Blood Count 13.4 10^3/uL (4.0-10.0)
--- NOTE | 2022-09-21 10:45 | SC_ITS ---
WS: [id number] Exam: C-arm FL for CVA [id number] Date/Time of Exam: 09/21/2022 10:45 AM Reason For Exam: permacath placement Limited intraoperative AP C-arm images of the chest for intraoperative purposes were obtained.
[2022-09-21 10:58] LABS: Anion Gap 26.2 (5-19); Calcium 9.1 mg/dL (8.5-10.5); Carbon Dioxide 20 mmol/L (22-29); Chloride 100 mmol/L (98-107); Glomerular Filtration Rate 10.7 mL/min (90-130); Glucose 88 mg/dL (65-115); Osmolality Calculated 327 mOsm/kg (285-295); Potassium 3.2 mmol/L (3.5-5.1); Sodium 143 mmol/L (136-145)
[2022-09-21 11:00] LABS: Blood Urea Nitrogen 102 mg/dL (6-20)
--- NOTE | 2022-09-21 11:04 | PM.PN ---
Subjective Subjective: plan for catheter placement today Medications: Reviewed: Yes Vitals/I&O/Wt Last Vital Signs Temp 98.4 F 09/21/22 04:00 Pulse 83 09/21/22 08:00 Resp 16 09/21/22 07:42 BP 119/54 09/21/22 08:00 Pulse Ox 93 09/21/22 08:00 O2 Del Method 09/21/22 07:35 O2 Flow Rate 6 09/08/22 09:00 FiO2 35 09/21/22 07:42 09/20/22 09/21/22 09/21/22 22:59 06:59 14:59 Intake Total 396.164 / 738.681 125.667 / 864.348 Output Total 1999 900 / 2900 Balance -1603.836 / -1261.319 -774.333 / -2035.652 Weight last 48 hrs Weight 164.2 kg Weight 164.2 kg Weight 170.2 kg Physical Exam Narrative: deferred Urinary Catheter Management: Cha: Cath Placed During This Visit: yes Reason for Continuing Indwelling Catheter: Accurate Measurement of Urinary Output in Critically Ill Patients Urinary Catheter Date of Insertion: 09/08/22 Urinary Catheter Time of Insertion: 10:29 Data 09/21/22 10:15 09/21/22 10:15 Micro: Microbiology 09/20/22 02:56 Stool Lactoferrin - Final Stool Occult Blood (FIT) - Final 09/19/22 15:55 Blood Culture - Preliminary Blood NEGATIVE TO DATE 09/19/22 15:55 Blood Culture - Preliminary Blood 09/20/22 02:56 C.difficile Toxin B Gene (PCR) - Final Stool Routine Collection A&P Assessment and plan (1) Acute kidney injury: Plan 1. Acute kidney injury. Different includes contrast nephropathy, sepsis, acute interstitial nephritis, hemodynamic. . Due to high O2 requirement and worsening renal function patient was started on HD. Would like to keep her on a negative fluid balance, Eval daily for hD needs. baseline creatinine was normal prior to admission at 0.5. Expect pt would require HD for few weeks to months. Plan to place tunnelled catheter -will plan for HD today via PC 2. Volume overload:HD as above , on bumex 3. Primary respiratory acidosis, hypercapneic respiratory failure on ventilator, 4. sepsis with pneumonia 6. HTN Attestations Medical Necessity Statement*: Per primary Procedures Arterial Line Size (Gauge): 20 Coding Level of Care Code Acute Code for Chg Fwd Diagnoses Acute kidney injury N17.9
--- NOTE | 2022-09-21 11:10 | USCV_ITS ---
September Age: 42 Gender: F : 1980 Exam Date: 09/21/2022 11:33 Ordering Phys: Zeferino Estrada MD Technologist: JHON Exam Location: [facility] [place] Indication: Eval for DVT PROCEDURES: Venous duplex imaging was performed in bilateral lower extremities. The following venous structures were evaluated: common femoral vein, profunda vein, proximal portion of the greater saphenous vein, superficial femoral vein, and the popliteal vein. In addition, the posterior tibial and peroneal trunk were evaluated. Serial compression, augmentation maneuvers, and spectral Doppler flow evaluation were performed. FINDINGS: Pt has a central line placement in area of LFV No evidence of DVT seen in any vessel visualized at this time. CONCLUSIONS No evidence of right lower extremity DVT. No evidence of left lower extremity DVT. Danial Davis MD (Electronically Signed) Final Date: 21 September 2022 16:24 S
--- NOTE | 2022-09-21 11:12 | XR_ITS ---
WS: [id number] Exam: XR chest 1V portable [id number] Date/Time of Exam: 09/21/2022 11:12 AM Reason For Exam: s/p L IJ permacath placement Comparison with the last exam performed 09/21/2022 at 5:40 AM. A left IJ double lumen catheter has been placed and appears to end at the cavoatrial junction. Bilate ral pulmonary infiltrates are unchanged. Cardiac enlargement unchanged. An enteric tube extends below the diaphragm into the stomach but the tip is not visible. An ET tube is in place ending about 6 cm above the maynor in good position. There may be a right-sided IJ metallic tip catheter in place which appears to end over the expected region of the lower SVC. The mediastinum is normal in contour. XR/XR chest 1V portable [id number] IMPRESSION: 1. Left-sided IJ double lumen catheter has been placed and appears to end at th e cavoatrial junction. 2. The chest is otherwise unchanged since the latest exam.
[2022-09-21 11:37] LABS: ABG PCO2 33.3 mmHg (35-45); ABG PH Result 7.31 (7.35-7.45); Base Excess ABG -8.7 mmol/L (-2.0-2.0); Blood Gas Allen Test Pos; Blood Gas Operator Identificat CAK; Blood Gas Sample Site Radial, left; Blood Gas Sample Type Arterial; Blood Gas Tidal Volume 0.42; HCO3 ABG 16.7 mmol/L (22-26); Oxygen Device VENT; PO2 ABG 77.8 mmHg (80.0-100.0)
[2022-09-21 12:03] LABS: Troponin(5th) Baseline 120 ng/L (0-10)
[2022-09-21 12:05] LABS: INR 1.06 (0.8-1.2)
[2022-09-21 12:12] LABS: Glucose Point of Care 80 mg/dL (70-110)
[2022-09-21 12:15] LABS: Anion Gap 25.3 (5-19); Calcium 10.1 mg/dL (8.5-10.5); Carbon Dioxide 20 mmol/L (22-29); Chloride 93 mmol/L (98-107); Glomerular Filtration Rate 8.3 mL/min (90-130); Glucose 76 mg/dL (65-115); Osmolality Calculated 311 mOsm/kg (285-295); Potassium 3.3 mmol/L (3.5-5.1); Sodium 135 mmol/L (136-145)
[2022-09-21 12:19] LABS: Troponin 5 2HR 130.9 ng/L (0-10); Troponin 5 2HR Delta 10.9 ABS# (0-10)
[2022-09-21 12:23] LABS: Blood Urea Nitrogen 103 mg/dL (6-20)
[2022-09-21] MEDS: levothyroxine 100 mcg SDV 50 MCG IVP (12:37)
[2022-09-21] MEDS: pantoprazole 40 mg SDV IVP ×2 (12:37→18:09)
[2022-09-21] MEDS: hydrocortisone 100 mg/2 mL SDV IVP (12:38)
[2022-09-21 13:00] LABS: Glucose Point of Care 106 mg/dL (70-110)
--- NOTE | 2022-09-21 13:19 | PM.PN ---
Subjective Subjective: patient was seen this morning, currently intubated,on minimal sedation, does follow commands, on 35fio2, normotensive, patient mother at bedside, had extensive discussion with mother of plan of care, patient going for egd and permcath placement Patient was reexamined, after her dialysis catheter placement, I was told by her premium cancellation clerk, that during the dialysis catheter placement, patient developed wide QRS complex, then developed A-fib, was a hypotensive, they gave her Cardizem, she is on Levophed Patient was seen in the ICU, currently sedated, she is in A-fib with RVR, rates in the 120s, on 4 of Levophed, I had nursing staff started on amiodarone bolus with amiodarone drip, Review of Dr. Prescott's operating note reveals that she has a bleeding ulcer, second portion of duodenum, shallow, injected with epinephrine, I ordered troponin series, BMP, Patient's blood sugars were in the 60s, was given amp of D50 blood sugars in the 100s Has hypokalemia currently being replaced with potassium Patient had a positive troponin series, baseline 120, 120-minute 130, with a delta of 10.9, showed ST depression in the lateral leads Stat venous ultrasound negative for DVT Stat echocardiogram ordered, cardiology consulted For now we will hold off on anticoagulation, hold off on heparin drip, but at some point will need to be resumed, she is on Protonix, Carafate for her bleeding ulcers Patient was reexamined, currently in A-fib, heart rates in the low teens, she is on 4 of Levophed, she is alert, awake, a bit groggy, nursing staff are turning her, she has just received dialysis Vitals/I&O/Wt Last Vital Signs Temp 98.4 F 09/21/22 04:00 Pulse 107 H 09/21/22 11:57 Resp 22 H 09/21/22 11:57 BP 119/54 09/21/22 08:00 Pulse Ox 93 09/21/22 11:57 O2 Del Method 09/21/22 11:57 O2 Flow Rate 6 09/08/22 09:00 FiO2 60 09/21/22 11:57 09/20/22 09/21/22 09/21/22 22:59 06:59 14:59 Intake Total 396.164 / 738.681 125.667 / 864.348 Output Total 1999 900 / 2900 Balance -1603.836 / -1261.319 -774.333 / -2035.652 Weight last 48 hrs Weight 164.2 kg Weight 164.2 kg Weight 170.2 kg Physical Exam Const: COMMON NORMALS: no acute distress OTHER: intubated, follows commands on minimal sedation Resp: COMMON NORMALS: normal respiratory effort, No retractions, No use of accessory muscles and clear to auscultation bilaterally AUSCULTATION: clear to auscultation bilaterally Cardio: COMMON NORMALS: regular rate, regular rhythm, S1 normal heart sound present and S2 normal heart sound present RATE: regular rate RHYTHM: regular rhythm HEART SOUNDS: S1 normal heart sound present and S2 normal heart sound present GI: COMMON NORMALS: Normal to inspection, nondistended, normoactive bowel sounds present and non-tender Extremity: COMMON NORMALS: no pedal edema Urinary Catheter Management: Cha: Cath Placed During This Visit: yes Reason for Continuing Indwelling Catheter: Accurate Measurement of Urinary Output in Critically Ill Patients Urinary Catheter Date of Insertion: 09/08/22 Urinary Catheter Time of Insertion: 10:29 Data 09/21/22 10:15 09/21/22 11:40 Micro: Microbiology 09/20/22 02:56 Stool Lactoferrin - Final Stool Enteric Pathogens (PCR) - Final Parasite Antigen Panel - Final Occult Blood (FIT) - Final 09/19/22 15:55 Blood Culture - Preliminary Blood NEGATIVE TO DATE 09/19/22 15:55 Blood Culture - Preliminary Blood A&P Assessment and plan (1) ARDS (adult respiratory distress syndrome): (2) Shock: (3) Acute respiratory failure with hypoxia and hypercapnia: (4) Obstructive sleep apnea: (5) CHF (congestive heart failure): Qualifiers: Heart failure chronicity: acute on chronic Heart failure type: diastolic Qualified Code(s): I50.33 - Acute on chronic diastolic (congestive) heart failure (6) Dialysis patient: (7) Acute kidney injury: (8) S/P bronchoscopy with bronchoalveolar lavage: On 09/13. Encountered high mucus in left lower lobe. Follow cultures. Patient desaturated during procedures to high 70s and low 80s but otherwise tolerated procedure well. (9) Pneumonia: (10) Sepsis: (11) Flash pulmonary edema: (12) Hypertensive emergency: (13) Essential hypertension: (14) Fever: (15) Goals of care, counseling/discussion: (16) Ventilator dependent: (17) Open wound of right hand: (18) GI bleed: (19) Atrial fibrillation with RVR: (20) Duodenal ulcer: (21) NSTEMI (non-ST elevated myocardial infarction): Plan 42 year old female with known past medical history of hypertension noncompliant with antihypertensive medication, morbid obesity, was accepted as a direct transfer, she was initially admitted for the management of substernal chest pain, associated with acute onset of worsening shortness of breath. Assessment: ARDS: Hypoxic and hypercapnic respiratory failure: Currently intubated. Most likely in setting of decompensated congestive heart failure in setting of hypertensive emergency and acute kidney dysfunction in setting of obstructive sleep apnea and pneumonia. Continue with Bumex to 2 mg 3 times daily. Negative around -13 L today. Fluid restriction as much as possible Hold off on tube feeds for now to reduce fluid intake. Concern for fluid overload with possible mucous and left lower lobe for which she underwent bronchoscopy. Poor study for pulmonary embolism given movement artifacts. Repeat D-dimer still elevated and given patient requiring high oxygen supplementation even after maximum treatment for now, heparin drip currently on hold due to dark tarry stools Monitor daily weights. Echocardiogram done during hospitalization shows EF of 60% with grade 1 diastolic dysfunction. Patient will need an outpatient sleep study to quantify sleep apnea. Continue vancomycin, Zosyn We will hold hydrocortisone, this potentially could have stress ulcers associate with steroids Fever: Afebrile, last 24 hours Blood cultures growing coag negative staph in 1 out of 4 bottles. Likely can dominate. But given critical sickness for now we will repeat blood cultures from all the lines including arterial line, femoral line, HD catheter. Multiple lines all done within the last 1 week. For now empirically continue with vancomycin and Zosyn. Previously blood cultures so far negative. Bronc cultures negative. Urine Legionella, bacterial antigen negative. Urine culture benign. Sputum culture negative. MRSA swab negative. A-fib with RVR -Continue amiodarone drip NSTEMI -Cardiology consulted -Serial EKGs serial troponins telemetry monitoring -Has duodenal ulcers so we will have to hold off on anticoagulant therapy and antiplatelet therapy -Cardiac echo ordered BRIDGETTE : Possibly secondary to ATN secondary to sepsis, in the setting of acute hypotension, versus possibly secondary to antihypertensive effects. Possible contrast-induced nephropathy as she has received a CTA recently, possible AIN Continue daily dialysis for now. Bumex 2 mg every 8 hourly. Status post permacath placement, received 1 session of dialysis today Given patient being ventilator dependent with difficult extubation given multiple comorbidities it would be best for patient to be as net negative as possible. Shock -Currently secondary to dialysis, A-fib with RVR -On 4 of Levophed Sepsis secondary to hospital-acquired pneumonia: Currently hypotensive likely secondary to dialysis A-fib with RVR Sepsis during admission which was ruled in with elevated white cell count, hypotensive, target organ dysfunction with increasing oxygen requirement and eventual intubation, need for vasopressor support, x-ray chest showing possible infiltrates. Wean Levophed while keeping mean arterial pressure over 65. Saturation over 92%. Continue with sedation with fentanyl Continue vancomycin and Zosyn Follow cultures Subclinical hypothyroidism: TSH still elevated. Free T4 levels below normal. Check cortisol were suboptimally normal. Hydrocortisone been weaned down. Will monitor response and plan to wean gradually. Monitor blood sugars. Hypertension with hypertensive emergency with flash pulmonary edema on admission: Resolved Blood pressure is better controlled. We will continue to monitor blood pressures and start treatment accordingly. Goal blood pressure less than 140/ 90 mmHg with mean over 65 Right upper extremity swelling: DVT ruled out. Does have blister on the dorsum of right hand due to infiltration of IV antibiotics. Continue to monitor. Right hand -Area of IV infiltration, I was told it was Zosyn -Area of open excoriation, concerns for underlying necrosis well demarcated borders, -Continue broad-spectrum antibiotic therapy -Continue wound care -At some point and will need to be debrided GI bleed -Patient's OG tube, and rectal tube output has been black and tarry -Hemoccult stool positive for blood -KUB negative for bowel obstruction, keep n.p.o. -Continue Protonix 40 IV twice daily, Carafate every 6 hours -Status post EGD showed duodenal ulcer shallow, bleeding requiring epinephrine -Heparin drip on hold -General surgery on consult Sedation: Versed and fentanyl Glycemic control: Hypoglycemia protocol Nutrition: Hold off on tube feeds for now to restrict fluid intake. Was on goal of 60 cc/h. CODE STATUS: Discussed in detail with patient mother and who is the DPOA at bedside. Patient is full code. We discussed need for dialysis for quick improvement. Family verbalized understanding and are agreeable. PUD prophylaxis: Protonix DVT prophylaxis: SCDs, heparin drip on hold Discharge planning: Likely will require LTAC placement Continue with care at ICU Plan for the day: Ventilator settings adjusted, increase PEEP, respiratory rate and repeat ABG Can plan for sedation vacation and possible weaning trials within next 24 to 48 hours. Continue to wean sedation, monitor mentation, has issues with restrictions Permacath placed Heart rate control Monitor troponin Monitor hemoglobin, monitor for recurrent bloody black stools Monitor hemoglobin Keep mean artery pressure 65. Follow-up repeat cultures being sent today from all the lines. Continue with vancomycin and Zosyn for now. Continue with hydrocortisone 100 mg every 12 hourly. Spoke to pulmonary Spoke to cardiology Spoke to nursing staff Attestations Medical Necessity Statement*: Patient requires hospitalization for respiratory failure, shock, GI bleed, A-fib, NSTEMI Procedures Arterial Line Size (Gauge): 20 Coding Level of Care Code Critical Care >/= 30 minutes Critical care time (in minutes): 60 The high probability of a clinically significant, sudden or life threatening deterioration, as referenced in this documentation, required my full and direct attention, intervention and personal management. The critical care time shown is in addition to time spent performing any reported separately billable procedures and includes the following: [x] Data and vital sign review and interpretation [x] Patient assessment, examination and intervention [x] Medication orders and management [x] Patient/Family updates as able [x] Care Coordination and Documentation. Diagnoses ARDS (adult respiratory distress syndrome) J80 Shock R57.9 Acute respiratory failure with hypoxia and hypercapnia J96.01; J96.02 Obstructive sleep apnea G47.33 CHF (congestive heart failure) I50.33 Heart failure chronicity: acute on chronic Heart failure type: diastolic Dialysis patient Z99.2 Acute kidney injury N17.9 S/P bronchoscopy with bronchoalveolar lavage Z98.890 Pneumonia J18.9 Sepsis A41.9 Flash pulmonary edema J81.0 Hypertensive emergency I16.1 Essential hypertension I10 Fever R50.9 Goals of care, counseling/discussion Z71.89 Ventilator dependent Z99.11 Open wound of right hand S61.401A GI bleed K92.2 Atrial fibrillation with RVR I48.91 Duodenal ulcer K26.9 NSTEMI (non-ST elevated myocardial infarction) I21.4
--- NOTE | 2022-09-21 13:48 | ECG_ITS ---
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 Measurements Intervals [place] Rate: 123 P: 79 DE: 207 QRS: -6 QRSD: 107 T: 142 QT: 289 QTc: 414 Interpretive Statements SINUS TACHYCARDIA ST DEVIATION AND MODERATE T-WAVE ABNORMALITY, CONSIDER LATERAL ISCHEMIA [-0.1+ mV T-WAVE IN I/aVL/V5/V6] Compared to ECG 09/13/2022 10:36:08 Possible ischemia now present Sinus rhythm no longer present T-wave abnormality still present Electronically Signed On 09-21-2022 18:46:32 CDT by Jaydon Fernandez M.D. [id number]
--- NOTE | 2022-09-21 15:53 | ANES.PREANE2 ---
Pre-Anesthetic Assessment Height/Weight: Height 1.7 m Weight 164.2 kg Temp Pulse Resp BP Pulse Ox O2 Del Method O2 Flow Rate 98.4 F 118 H 22 H 117/65 93 6 09/21/22 04:00 09/21/22 15:00 09/21/22 14:50 09/21/22 15:00 09/21/22 15:00 09/21/22 11:57 09/08/22 09:00 FiO2 60 09/21/22 14:50 Operation Date: 09/21/22 08:35 Proposed Procedures p Portacath Placement(Not Applicable) - José Miguel Prescott DO Familial anesthetic complications: none Was Beta Alisson taken within 24 hours: N/A Was Clonidine taken within 24 hours: N/A Social No alcohol and No tobacco Exam clear to auscultation bilaterally and regular rate & rhythm Intubated and sedated in ICU Airway Comments: Comments: ETT Pulmonary Sleep Apnea ARDS, pneumonia CV/HEM Anemia Shock Acute renal failure Metabolic Morbid Obesity Anesthetic Plan ASA status: 4 Anesthesia: General Medications/Allergies Home Medications Medication Instructions Recorded Confirmed Last Taken Type No Known Home Medications 09/07/22 09/07/22 Unknown History Allergies Allergy/AdvReac Type Severity Reaction Status Date / Time No Known Allergies Allergy Verified 09/07/22 07:55 Current Medications Generic Name Dose Route Start Last Admin Trade Name Luisq PRN Reason Stop Dose Admin Acetaminophen 650 mg 09/06/22 10:41 09/15/22 05:54 Acetaminophen 325 Mg Tablet PO 650 mg Q6H PRN Administration Mild/Mod Pain Or Temp >/= 101 Albuterol Sulfate 2.5 mg 09/11/22 09:54 09/19/22 08:05 Albuterol 2.5 Mg/3 Ml Neb INHALATION 2.5 mg Q4H.RESPIRATORY PRN Administration SHORTNESS OF BREATH Albuterol/Ipratropium 3 ml 09/13/22 12:00 09/21/22 11:56 Ipratropium-Albuterol 3 Ml Neb INHALATION 3 ml Q4H.RESPIRATORY STERLING Administration Artificial Tears 1 applic 09/12/22 22:30 09/20/22 20:50 Artificial Tears Op Oint 3.5 Gm EYE-BOTH 1 applic BEDTIME STER[place]ING Administration Budesonide 0.5 mg 09/12/22 20:00 09/21/22 07:35 Budesonide 0.5 Mg/2 Ml Neb INHALATION 0.5 mg BID.RESPIRATORY ST[place]LING Administration Bumetanide 2 mg 09/14/22 02:00 09/21/22 12:37 Bumetanide 0.25 Mg/Ml Sdv 10 Ml IVP 2 mg Q8H [place] Administration Chlorhexidine Gluconate 1 applic 09/10/22 01:00 09/21/22 01:08 Chlorhexidine Gluconate 4% Btl 118 Ml TOPICAL 1 applic 0100 [place] Administration Docusate Sodium 50 mg 09/17/22 18:00 09/21/22 11:13 Docusate Sodium 10 Mg/Ml (5ml) Liq PO Not Given DAILY ST[place]ING Heparin Sodium (Porcine) 10,000 unit 09/11/22 19:50 09/13/22 14:57 Heparin, Porcine 1,000 Unit/Ml Inj 10 Ml HE 10,000 unit PRN PRN Administration Dialysis Heparin Sodium (Porcine) 0 unit 09/16/22 07:15 09/17/22 21:07 Heparin 5,000 Unit/Ml Inj 1 Ml IV 2,800 unit PRN PRN Administration Heparin weight-base protocol Protocol Hydrocortisone Sodium Succinate 100 mg 09/17/22 21:00 09/21/22 12:38 Hydrocortisone 100 Mg/2 Ml Sdv IVP 100 mg Q12H [place] Administration Propofol 1,000 mg in 100 mls @ 0 mls/hr 09/09/22 03:45 09/14/22 19:00 Diprivan IV Infused .Q0M [place] Titration Protocol Per Protocol Fentanyl 2,500 mcg/ Sodium 250 mls @ 0 mls/hr 09/09/22 04:45 09/21/22 01:33 Chloride IV 150 mcg/hr .Q0M [place] 15 mls/hr Administration Protocol Per Protocol Norepinephrine Bitartrate 4 mg 254 mls @ 0 mls/hr 09/11/22 17:00 09/20/22 18:02 / Dextrose IV 0 mcg/min .Q0M ST[place] 0 mls/hr Titration Protocol Per Protocol Midazolam HCl 100 mg/ Sodium 100 mls @ 0 mls/hr 09/13/22 19:15 09/20/22 18:02 Chloride IV 4 mg/hr .Q0M ST[place] 4 mls/hr Administration Protocol Per Protocol Heparin Sodium/Sodium Chloride 25,000 unit in 500 mls @ 0 mls/hr 09/16/22 07:15 09/20/22 05:00 Heparin Drip IV Infused .Q0M [place] Titration Protocol Per Protocol Vancomycin HCl 1,000 mg/ 250 mls @ 250 mls/hr 09/16/22 12:00 09/20/22 12:51 Sodium Chloride IV 250 mls/hr Q48H [place] Administration Protocol Piperacillin Sod/Tazobactam 50 mls @ 12.5 mls/hr 09/16/22 13:00 09/21/22 12:38 Sod 3.375 gm/ Sodium Chloride IV 12.5 mls/hr Q12H [place] Administration Protocol Amiodarone HCl 900 mg/ 518 mls @ 0 mls/hr 09/21/22 11:15 09/21/22 12:40 Dextrose/ IV Miscellaneous IV 1 mg/min Supplies .Q0M STER[place]ING 34.53 mls/hr Administration Protocol Per Protocol Levothyroxine Sodium 50 mcg 09/15/22 10:15 09/21/22 12:37 Levothyroxine 100 Mcg Sdv IVP 50 mcg DAILY [place] Administration Ondansetron HCl 4 mg 09/06/22 10:41 09/08/22 16:34 Ondansetron 2 Mg/Ml Sdv 2 Ml IVP 4 mg Q8H PRN Administration vomiting, or N/V if npo Pantoprazole Sodium 40 mg 09/20/22 09:00 09/21/22 12:37 Pantoprazole 40 Mg Sdv IVP 40 mg BID ST[place] Administration Silver Sulfadiazine 1 applic 09/15/22 21:00 09/21/22 05:50 Silver Sulfadiazine Cream 1% 50 Gm TOPICAL 1 applic QAM&BEDTIME STER[place] Administration Sucralfate 1 gm 09/20/22 17:00 09/21/22 04:50 Sucralfate 1 Gm Tablet PO Not Given Q12H [place] PFSH Anesthesia Medical History CHF (congestive heart failure) Essential hypertension Hypertension screen Hypoxia Medication management Polycystic ovarian disease Vitamin D deficiency Surgical History S/P cholecystectomy S/P D&C (status post dilation and curettage) S/P tubal ligation Social History Smoking and tobacco status: former smoker Quit status (tobacco): has quit using tobacco Second hand smoke exposure: No Smoking risk assessment/counseling performed?: No Alcohol intake: never Desire information about alcohol rehabilitation?: No Counseling given: No Desire information about substance/drug rehabilitation?: No Counseling given: No Data Anesthesia 09/21/22 10:15 09/21/22 11:40 Short CBC 09/20/22 09/20/22 09/20/22 Range/Units 03:10 15:41 21:11 WBC 14.4 H 10.6 H 10.2 H (4.0-10.0) 10^3/uL Hgb 12.1 11.5 11.5 (11.5-15.3) g/dL Hct 39.8 37.0 36.3 L (37.0-47.0) % MCV 90.0 88.1 87.3 (81-99) fl Plt Count 268 206 222 (130-400) 10^3/cmm Neut % (Auto) 80.6 76.7 66.2 % Neut # (Auto) 11.59 H 8.10 H 6.73 (1.8-7.7) 10^3/uL 09/21/22 09/21/22 Range/Units 03:23 10:15 WBC 10.5 H 13.4 H (4.0-10.0) 10^3/uL Hgb 11.4 L 11.0 L (11.5-15.3) g/dL Hct 35.7 L 34.7 L (37.0-47.0) % MCV 86.9 87.6 (81-99) fl Plt Count 212 233 (130-400) 10^3/cmm Neut % (Auto) 73.3 65.6 % Neut # (Auto) 7.73 H 8.74 H (1.8-7.7) 10^3/uL BMP 09/20/22 09/21/22 09/21/22 03:10 03: 10:15 Sodium 133 L 136 143 Potassium 4.6 3.9 3.2 L Chloride 95 L 94 L 100 Carbon Dioxide 23 20 L 20 L BUN 73 H 101 H* 102 H* Creatinine 4.3 H 5.1 H 4.5 H Glucose 120 H 96 88 Calcium 9.4 10.1 9.1 03/30/23 11:40 Sodium 135 L Potassium 3.3 L Chloride 93 L Carbon Dioxide 20 L BUN 103 H* Creatinine 5.6 H* Glucose 76 Calcium 10.1 Cardiac Enzymes 09/21/22 09/21/22 09/21/22 Range/Units 03:23 10:15 11:40 Troponin T Baseline 120 H* (0-10) ng/L Troponin T 120 Minute 130.9 H (0-10) ng/L Delta Troponin T 10.9 H* (0-10) ABS# NT-Pro-B Natriuret Pep 821 H (0-125) pg/mL Liver Function 09/20/22 09/21/22 Range/Units 03:10 03:23 Total Bilirubin 0.4 0.4 (0.15-1.2) mg/dL AST 16 17 (0-32) U/L ALT 18 23 (0-33) U/L Alkaline Phosphatase 55 50 (35-105) U/L Albumin 3.9 3.9 (3.5-5.2) g/dL Coags 09/19/22 09/20/22 09/21/22 16:00 03:10 03:23 PT INR APTT 82.9 H 43.5 H C-Reactive Protein 10.2 H 09/21/22 11:40 PT 14.20 INR 1.06 APTT C-Reactive Protein ABG 09/20/22 09/20/22 09/21/22 04:00 12:53 05:27 Specimen Type Arterial Arterial Arterial Sample Site Radial, left Not specified ABG pH 7.20 L 7.32 L 7.39 ABG pCO2 63.3 H* 39.4 34.3 L ABG pO2 74.7 L 91.6 103.0 H ABG HCO3 24.7 20.1 L 20.6 L ABG O2 Saturation 93.2 97.5 98.8 ABG Base Excess -4.4 L -5.6 L -3.7 L A-a O2 Gradient 22.5 H 23.7 H 18.1 H O2 Delivery Device Vent Vent Vent FiO2 45.0 45.0 40.0 Tidal Volume 0.42 0.42 PEEP 10.0 10.0 8.0 09/21/22 11:24 Specimen Type Arterial Sample Site Radial, left ABG pH 7.31 L ABG pCO2 33.3 L ABG pO2 77.8 L ABG HCO3 16.7 L ABG O2 Saturation ABG Base Excess -8.7 L A-a O2 Gradient O2 Delivery Device Vent FiO2 60.0 Tidal Volume 0.42 PEEP 12.0 Microbiology 09/16/22 13:27 Blood Culture - Final Blood Staphylococcus epidermidis 09/20/22 02:56 Stool Lactoferrin - Final Stool Enteric Pathogens (PCR) - Final Parasite Antigen Panel - Final Occult Blood (FIT) - Final 09/19/22 15:55 Blood Culture - Preliminary Blood NEGATIVE TO DATE Cardiac Studies: Echocardiogram 09/06/22
--- NOTE | 2022-09-21 15:56 | ANE.PACU2 ---
Inpatient post-anesthesia follow up: Airway intact: Yes Vital signs: Temperature 98.4 F Pulse Rate 118 Respiratory Rate 22 Blood Pressure 117/65 Pulse Oximetry 93 Oxygen Delivery Me thod Mechanical Ventila tion Oxygen Flow Rate 6 Fraction of Inspir ed Oxygen 60 Hydration adequate: Yes Nausea and vomiting: Yes Pain level: 2 Mental status: Baseline Additional Comments: Intubated/sedated to ICU, aMerryfib with RVR
[2022-09-21] MEDS: heparin, porcine 1,000 unit/mL INJ 10 mL 10000 UNIT INTRACATH (16:06)
[2022-09-21] MEDS: heparin, porcine 1,000 unit/mL INJ 10 mL 10000 UNIT HE (16:07)
--- NOTE | 2022-09-21 16:53 | PM.PN ---
Subjective Subjective: Seen patient at bedside multiple times today At that time she was down to 35%, following commands on fentanyl 125 mcg/hour and Versed 2 Mg/hour Patient had permacath placed today; she also underwent EGD which showed shallow bleeding ulcers and epinephrine was injected, biopsies were sent Apparently patient had wide-complex tachycardia-later went into A-fib RVR and has to be started on amiodarone drip EKG showed ST depressions-2 over delta troponin was taken with 6-hour delta troponin is greater than 50-cardiology consulted With suspected NSTEMI-active bleeding ulcers-unable to continue heparin drip Post A-fib her FiO2 requirement went up to 60% on ventilator. Medications: Reviewed: Yes Vitals/I&O/Wt Last Vital Signs Temp 98.4 F 09/21/22 04:00 Pulse 118 H 09/21/22 15:00 Resp 22 H 09/21/22 14:50 BP 117/65 09/21/22 15:00 Pulse Ox 93 09/21/22 15:00 O2 Del Method 09/21/22 11:57 O2 Flow Rate 6 09/08/22 09:00 FiO2 60 09/21/22 14:50 09/21/22 09/21/22 09/21/22 06:59 14:59 22:59 Intake Total 125.667 / 864.348 Output Total 900 / 2900 Balance -774.333 / -2035.652 Weight last 48 hrs Weight 362 lb Weight 362 lb Physical Exam Narrative: PHYSICAL EXAM: General: Morbidly obese, young female, lying in bed, sedated and intubated-opens eyes and follows commands HEENT:NCAT, PERRLA, EOMI Neck: Supple Lungs: Bilateral diffuse crackles Heart: s1/s2, RRR Abd: soft, NT, ND, BS + Normoactive Extremities: No edema, right forearm infiltrated 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 SKIN: Stage II ulcer dorsum of right hand LDA: # HD Cath : Right IJ 09/11/2022 # A line: 09/08/2022 left radial artery #CVC: Right femoral line 09/08/2022 Urinary Catheter Management: Cha: Cath Placed During This Visit: yes Reason for Continuing Indwelling Catheter: Accurate Measurement of Urinary Output in Critically Ill Patients Urinary Catheter Date of Insertion: 03/17/23 Urinary Catheter Time of Insertion: 10:29 Data 09/21/22 10:15 09/21/22 11:40 Other Labs: Radiology Impressions Duplex Scan Upper Extremity Artery 09/08/22 20:22 IMPRESSION: 1. No evidence for major vessel occlusion or significant stenosis. 2. Other details discussed above. Renal Ultrasound 09/09/22 05:33 IMPRESSION: 1. No hydronephrosis of either kidney. 2. Technologist notes somewhat limited evaluation of the kidneys, due to patient condition and body habitus. 3. Other details discussed above. Chest CTA 09/13/22 10:26 IMPRESSION: 1. Very limited exam due to artifact from CT bore contact. 2. Nondiagnostic evaluation of the pulmonary arteries. 3. Complete atelectasis of both lower lobes and partial atelectasis of the left upper lobe. 4. Cardiac enlargement. 5. Enlarged main pulmonary artery suggests pulmonary hypertension. 6. Lexus hepatis and gastrohepatic ligament lymphadenopathy is partially imaged. Recommend follow-up abdomen pelvis CT. 7. Satisfactory position of lines and tubes. KUB X-Ray 09/20/22 08:46 IMPRESSION: 1. No acute process noted. 2. Enteric tube in place appearing to end in the body the stomach. Chest X-Ray 09/21/22 11:12 IMPRESSION: 1. Left-sided IJ double lumen catheter has been placed and appears to end at the cavoatrial junction. 2. The chest is otherwise unchanged since the latest exam. Laboratory Results WBC 13.4 10^3/uL (4.0-10.0) H 09/21/22 10:15 RBC 3.96 10^6/uL (4.1-5.3) L 09/21/22 10:15 Hgb 11.0 g/dL (11.5-15.3) L 09/21/22 10:15 Hct 34.7 % (37.0-47.0) L 09/21/22 10:15 MCV 87.6 fl (81-99) 09/21/22 10:15 MCH 27.8 pg (28.0-34.0) L 09/21/22 10:15 MCHC 31.7 g/dL (30.0-36.0) 09/21/22 10:15 RDW 13.4 % (12.1-15.1) 09/21/22 10:15 Plt Count 233 10^3/cmm (130-400) 09/21/22 10:15 MPV 9.6 fL (7.4-10.4) 09/21/22 10:15 Neut % (Auto) 65.6 % 09/21/22 10:15 Lymph % (Auto) 21.0 % 09/21/22 10:15 [place] % (Auto) 6.3 % 09/21/22 10:15 Eos % (Auto) 1.5 % 09/21/22 10:15 Baso % (Auto) 0.7 % 09/21/22 10:15 Neut # (Auto) 8.74 10^3/uL (1.8-7.7) H 09/21/22 10:15 Lymph # (Auto) 2.8 10^3/uL (0.8-4.8) 09/21/22 10:15 [place] # (Auto) 0.8 10^3/uL (0.2-0.9) 09/21/22 10:15 Eos # (Auto) 0.2 10^3/uL (0.0-0.8) 09/21/22 10:15 Baso # (Auto) 0.1 10^3/uL (0.0-0.1) 09/21/22 10:15 Nucleated RBC % (auto) 0 % 09/21/22 10:15 Nucleated RBCs # 0.0 /100WBC 09/21/22 10:15 PT 14.20 SECONDS (12.1-14.9) 09/21/22 11:40 INR 1.06 (0.8-1.2) 09/21/22 11:40 APTT 43.5 SECONDS (23.9-36.7) H 09/20/22 03:10 D-Dimer 3.78 ug/mIFEU (0-0.59) H 09/15/22 17:57 Specimen Type Arterial 09/21/22 11:24 Sample Site Radial, left 09/21/22 11:24 ABG pH 7.31 (7.35-7.45) L 09/21/22 11:24 ABG pCO2 33.3 mmHg (35-45) L 09/21/22 11:24 ABG pO2 77.8 mmHg (80.0-100.0) L 09/21/22 11:24 ABG HCO3 16.7 mmol/L (22-26) L 09/21/22 11:24 ABG O2 Saturation 98.8 09/21/22 05:27 ABG Base Excess -8.7 mmol/L (-2.0-2.0) L 09/21/22 11:24 [place] Test Pos 09/21/22 11:24 A-a O2 Gradient 18.1 mmHg (5-10) H 09/21/22 05:27 Hematocrit 32.0 % (37-47) L 09/21/22 11:24 Hgb O2 Saturation 96.9 % (95-100) 09/21/22 05:27 Carboxyhemoglobin 1.1 %THgb (0.4-20.1) 09/21/22 05:27 Methemoglobin 0.9 % (0.4-1.5) 09/21/22 05:27 Total Hemoglobin 11.7 g/dL (12-16) L 09/21/22 05:27 Sodium 141.0 mmol/L (131-143) 09/21/22 05:27 Potassium 3.6 mmol/L (3.5-5.0) 09/21/22 05:27 Glucose 88.0 mg/dL (70-115) 09/21/22 05:27 Ionized Calcium 1.3 mmol/L (1.1-1.4) 09/21/22 05:27 O2 Delivery Device Vent 09/21/22 11:24 O2 Liters/Min 7.0 % 09/08/22 15:57 SIMV 18.0 09/20/22 04:00 FiO2 60.0 % 09/21/22 11:24 Tidal Volume 0.42 09/21/22 11:24 PEEP 12.0 cmH20 09/21/22 11:24 Lithoplate Maker ID Cak 09/21/22 11:24 Sodium 135 mmol/L (136-145) L 09/21/22 11:40 Potassium 3.3 mmol/L (3.5-5.1) L 09/21/22 11:40 Chloride 93 mmol/L (98-107) L 09/21/22 11:40 Carbon Dioxide 20 mmol/L (22-29) L 09/21/22 11:40 Anion Gap 25.3 (5-19) H 09/21/22 11:40 BUN 103 mg/dL (6-20) H* 09/21/22 11:40 Creatinine 5.6 mg/dL (0.5-0.9) H* 09/21/22 11:40 GFR Calculation 8.3 mL/min (90-130) L 09/21/22 11:40 Glucose 76 mg/dL (65-115) 09/21/22 11:40 POC Glucose 106 mg/dL (70-110) 09/21/22 12:57 Estimat Average Glucose 114 09/12/22 03:59 Hemoglobin A1c 5.6 % (4.0-6.0) 09/12/22 03:59 Calculated Osmolality 311 mOsm/kg (285-295) H 09/21/22 11:40 Lactic Acid 1.6 mmol/L (0.5-2.2) 09/08/22 09:06 Calcium 10.1 mg/dL (8.5-10.5) 09/21/22 11:40 Phosphorus 5.9 mg/dL (2.5-4.5) H 09/11/22 05:57 Magnesium 2.3 mg/dL (1.7-2.3) 09/21/22 03:23 Iron 46 ug/dL (37-145) 09/11/22 05:57 TIBC 271 mcg/dl 09/11/22 05:57 % Saturation 16.9 % (20-50) L 09/11/22 05:57 Unsat Iron Binding 225 ug/dL (112-347) 09/11/22 05:57 Total Bilirubin 0.4 mg/dL (0.15-1.2) 09/21/22 03:23 AST 17 U/L (0-32) 09/21/22 03:23 ALT 23 U/L (0-33) 09/21/22 03:23 Alkaline Phosphatase 50 U/L (35-105) 09/21/22 03:23 Creatine Kinase 225 U/L (26-192) H 09/10/22 03:30 CK-MB (CK-2) 14.9 ng/mL (0-5.34) H 09/10/22 03:30 CK-MB (CK-2) Rel Index 6.6 % (0.0-10.4) 09/10/22 03:30 Troponin T Baseline 120 ng/L (0-10) H* 09/21/22 10:15 Troponin T 120 Minute 130.9 ng/L (0-10) H 09/21/22 11:40 Delta Troponin T 10.9 ABS# (0-10) H* 09/21/22 11:40 Troponin T Hi Sens 6Hr 174.5 ng/L (0-10) H 09/21/22 16:16 Troponin T Hi Sens 6Hr Delta 54.5 ng/L (0-12) H* 09/21/22 16:16 C-Reactive Protein 10.2 mg/L (0.0-4.9) H 09/21/22 03:23 NT-Pro-B Natriuret Pep 821 pg/mL (0-125) H 09/21/22 03:23 Total Protein 6.9 g/dL (6.6-8.7) 09/21/22 03:23 Albumin 3.9 g/dL (3.5-5.2) 09/21/22 03:23 Globulin 3.0 g/dL (1.3-4.6) 09/21/22 03:23 Triglycerides 313 mg/dL (0-150) H 09/12/22 03:59 Cholesterol 140 mg/dL (0-200) 09/12/22 03:59 LDL Cholesterol, Calc 49 mg/dL (50-129) L 09/12/22 03:59 Total VLDL Cholesterol 63 mg/dL (0-30) H 09/12/22 03:59 HDL Cholesterol 28 mg/dL (60-100) L 09/12/22 03:59 Cholesterol/HDL Ratio 5.00 mg/dL (0.0-4.40) H 09/12/22 03:59 Vitamin B12 514 pg/mL (232-1245) 09/11/22 05:57 Folate 8.9 ng/mL (4.8-37.3) 09/11/22 05:57 Procalcitonin 0.35 ng/mL (0-0.5) 09/08/22 09:06 TSH 18.45 uIU/mL (0.27-4.20) H 09/15/22 02:38 Free T4 0.60 ng/dL (0.82-1.77) L 09/15/22 02:38 Free T3 2.2 PG/ML (2.0-4.4) 09/11/22 05:57 Random Cortisol 2.67 ug/dL (2.47-19.5) 09/15/22 02:38 Urine Color Yellow (Yellow) 09/17/22 12:15 Urine Appearance Hazy (CLEAR) A 09/17/22 12:15 Urine pH 8 (5-7) H 09/17/22 12:15 Ur Specific [place] 1.010 (1.005-1.030) 09/17/22 12:15 Urine Protein Trace (Negative) 09/17/22 12:15 Urine Glucose (UA) Norm (Normal) 09/17/22 12:15 Urine Ketones Negative (Negative) 09/17/22 12:15 Urine Blood 3+ (Negative) H 09/17/22 12:15 Urine Nitrate Negative (Negative) 09/17/22 12:15 Urine Bilirubin Neg (Negative) 09/17/22 12:15 Prot Sulfosalicylic Acd Positive (Negative) 09/17/22 12:15 Urine Urobilinogen Norm mg/dL (Negative) 09/17/22 12:15 Ur Leukocyte Esterase 2+ (Negative) H 09/17/22 12:15 Urine RBC 25-40 /hpf (0-2) H 09/17/22 12:15 Urine WBC 55-80 /hpf (0-5) H 09/17/22 12:15 Ur Squamous Epith Cells 25-40 /hpf (0-5) H 09/17/22 12:15 Ur Transition Epith Cell 0-4 /hpf 09/10/22 12:30 Amorphous Sediment Not Reportable 09/17/22 12:15 Urine Bacteria 2+ /hpf (NONE) H 09/17/22 12:15 Urine Yeast 2+ /hpf H 09/17/22 12:15 Ur Random Sodium 93 mmol/L 09/09/22 01:10 Urine Creatinine 51 mg/dL (28-217) 09/09/22 01:10 Nasal Influ A H1 2008 PCR Not detected (NOT DETECT) 09/08/22 08:45 Bronch Specimen Source Left lower lobe 09/13/22 18:40 Bronchial Fluid Color Red 09/13/22 18:40 Bronchial Fluid Appearance Bloody (CLEAR) 09/13/22 18:40 Bronchial Fluid WBC 1361 /uL 09/13/22 18:40 Bronchial Fluid RBC 900 10^3/uL 09/13/22 18:40 Bronch Cells Counted 200 09/13/22 18:40 Bronchial Neutrophils 72.00 % (0.9-2.3) H 09/13/22 18:40 Bronchial Lymphocytes 26.00 % (10.71-12.91) H 09/13/22 18:40 Bronchial Eosinophils 1.00 % (0.13-0.25) H 09/13/22 18:40 Bronchial Macrophages 1.00 % (83.6-86.8) L 09/13/22 18:40 Bronchial Diff Comment Yes 09/13/22 18:40 Random Vancomycin 19.5 ug/mL (20.0-40.0) L 09/19/22 03:38 Adenovirus (PCR) Not detected (NOT DETECT) 09/08/22 08:45 C. pneumoniae DNA (PCR) Not detected (NOT DETECT) 09/08/22 08:45 Coronavirus 229E (PCR) Not detected (NOT DETECT) 09/08/22 08:45 Hepatitis A IgM Ab Non-reactive (Nonreactive) 09/11/22 05:57 Hep Bs Antigen Non-reactive (Nonreactive) 09/11/22 05:57 Hep Bs Antibody 12.8 (11.5-1000) 09/11/22 05:57 Hep B Core Total Ab Non-reactive (Nonreactive) 09/11/22 05:57 Hepatitis C Antibody Non-reactive (Nonreactive) 09/11/22 05:57 Human Metapneumovir PCR Not detected (NOT DETECT) 09/08/22 08:45 Influenza A (H1) PCR Not detected (NOT DETECT) 09/08/22 08:45 Influenza A (H3) PCR Not detected (NOT DETECT) 09/08/22 08:45 Influenza Type A (PCR) Not detected (NOT DETECT) 09/08/22 08:45 Influenza Type B (PCR) Not detected (NOT DETECT) 09/08/22 08:45 M. pneumoniae (PCR) Not detected (NOT DETECT) 09/08/22 08:45 Parainfluenza 1 (PCR) Not detected (NOT DETECT) 09/08/22 08:45 Parainfluenza 2 (PCR) Not detected (NOT DETECT) 09/08/22 08:45 Parainfluenza 3 (PCR) Not detected (NOT DETECT) 09/08/22 08:45 Parainfluenza 4 (PCR) Not detected (NOT DETECT) 09/08/22 08:45 RSV Type A (PCR) Not detected (NOT DETECT) 09/08/22 08:45 RSV Type B (PCR) Not detected (NOT DETECT) 09/08/22 08:45 Entero/Rhino (PCR) Not detected (NOT DETECT) 09/08/22 08:45 SARS-CoV-2 (PCR) Not detected (NOT DETECT) 09/08/22 08:45 Micro: Microbiology 09/16/22 13:27 Blood Culture - Final Blood Staphylococcus epidermidis 09/20/22 02:56 Stool Lactoferrin - Final Stool Enteric Pathogens (PCR) - Final Parasite Antigen Panel - Final Occult Blood (FIT) - Final 09/19/22 15:55 Blood Culture - Preliminary Blood NEGATIVE TO DATE A&P Assessment and plan (1) Acute respiratory failure with hypoxia and hypercapnia: (2) Obstructive sleep apnea: (3) Pneumonia: (4) Flash pulmonary edema: (5) Acute kidney injury: (6) ARDS (adult respiratory distress syndrome): (7) Open wound of right hand: (8) NSTEMI (non-ST elevated myocardial infarction): (9) Duodenal ulcer: (10) Atrial fibrillation with RVR: Plan ASSESSMENT/PLAN:Overall: 42-year-old young female with past medical history of hypertension-noncompliant with her medications-initially comes with hypertensive emergency with flash pulmonary edema-treated with nicardipine drip-becomes hypotensive-started on pressors and antibiotics for presumed sepsis. She went into respiratory failure requiring mechanical ventilation support. She also developed BRIDGETTE requiring temporary hemodialysis. NEURO: #Sedation-currently on fentanyl and Versed gtt. -She is on fentanyl 125 mcg/hour Versed 2 Mg/hour-opening eyes and following commands PULM: #Acute hypoxic and hypercapnic respiratory failure-probably there is a chronic component given her morbid obesity -Acute component secondary to flash pulmonary edema due to hypertensive emergency - -FiO2 requirement down to 35% today morning; PEEP down to 10-unfortunately has to go up to 60% and after she suffered A-fib RVR episode -We will continue to taper down FiO2/PEEP requirements -We will continue to monitor with serial ABG -She underwent CTA for increasing oxygen requirements-there was a lot of motion artifact and CT was nondiagnostic for pulmonary arteries. There is moderate cardiac enlargement and enlarged main pulmonary artery suggesting pulmonary hypertension. There was partial atelectasis of left upper lobe and complete atelectasis of both lower lobes. -We have to stop for IV heparin due to coffee-ground NG secretions as well as rectal secretions-today EGD showed shallow bleeding ulcers -She underwent bronchoscopic evaluation for airways 09/13/2022-there were thick mucus secretions in bilateral lower lobes which were suctioned-BAL neutrophils predominant-final cultures negative -She is on scheduled nebulization with DuoNeb as well as Pulmicort -Currently she is on Bumex 2 Mg Q8 over follow-up fluid overload-currently on hemodialysis as per nephrology team -We will continue with awakening and breathing trials CVS: #Hypertensive emergency-treated with nicardipine [id number] circulatory shock-likely secondary to possible nicotine toxicity or demand ischemia due to underlying? Sepsis #ST depressions A-fib RVR-suspect NSTEMI-?? Demand ischemia due to shallow bleeding ulcers -Currently requiring intermittently requiring Levophed -on amiodarone drip -Echocardiogram during admission showed normal LV size, systolic function with EF 60%. Grade 1 diastolic dysfunction. -Elevated BNP -Currently on Bumex 2 Mg every 8 hours and fluid removal through temporary hemodialysis -Continue close hemodynamic and cardiac monitoring GI: #Diet: N.p.o. due to GI bleed #GI prophylaxis: PPI every 12 hours and sucralfate #LFTs: elevated - monitor RENAL: #BRIDGETTE-most likely prerenal secondary to ischemic ATN due to hypotension/? Contrast-induced nephropathy -Currently on daily hemodialysis as per renal team to achieve net negative fluid balance -Electrolytes are acceptable but her BUN/creatinine kind of plateaued and unfortunately her urine output is not very encouraging which could also be due to at least 3 L being taken out through dialysis -Currently on Bumex 2 Mg 3 times daily -She is requiring daily hemodialysis -General surgery placed permacath today HEM: #GI bleed -EGD today showed shallow duodenal ulcers and received epinephrine injection -PPI every 12 hours and sucralfate -H&H stable -We will monitor H&H -Held her IV heparin -Monitor H&H #Leukocytosis-improving #H&H stable #Normal platelets ENDO: #Significantly elevated TSH-suspect hypothyroidism-patient on levothyroxine 50 mcg q. p.o. daily-she may need to follow-up as outpatient #Normal blood sugars #Possible underlying adrenal insufficiency-held steroids due to duodenal ulcers ID: #Presumably met sepsis criteria #Low-grade temperature spikes- #Stage II ulcer on dorsum of hand-surgery to evaluate -Pulmonary infiltrates on imaging-with leukocytosis-and hypotension-there was a suspicion if it is all septic shock secondary to pneumonia; -However infiltrates can be explained with fluid overload, hypotension secondary to Cardene drip -Patient procalcitonin is low -Repeat blood cultures sent today 09/16/22 -06/28 bottle Staph epidermidis-likely contaminant -Back on vancomycin and Zosyn -BAL neutrophil predominance-final cultures negative Code Status: Full code Disposition: ICU Critically ill: Yes MD discussed with: Hospitalist, RN, RT taking care of the patient ICU CHECKLIST: Problem list updated Verbal orders reviewed and signed Analgesia: Fentanyl Glycemic Control: N/A Nutrition: npo Restraint Renewal (within 24 hrs): Yes Ulcer Prophylaxis: PPI Chemical Thromboprophylaxis: Prophylaxis: na-GI bleed Mechanical Thromboprophylaxis: SCDs Need for Central line: Yes for multiple medications Need for Cha catheter: Yes for urine output monitoring Attestations Medical Necessity Statement*: Acute hypoxic/hypercapnic respiratory failure secondary to fluid overload due to hypertensive emergency-requiring mechanical ventilation; will continue to monitor at least 48 hours in ICU Critical Care Time: This patient has a high probability of? clinically sig nificant, sudden o r life threatening deterioration of the patient's (jonathan rological/pulmonar y/cardiac/renal/ID /endocrine) system s required my full , direct attention , the highest leve l of physician pre paredness for urge nt intervention an d personal managem ent.? I managed/meade pervised life or o rgan supporting in terventions that r equired frequent p hysician assessmen t.? I devoted my f ull attention in t he ICU to the dire ct care of this pa kam for the kareen od of time indicat ed above.? Time I spent with family or surrogate(s) is included only if the patient was in capable of providi ng necessary infor mation or particip ating in decision making.? This annie e includes the [facility] services pr ovided: Telemetry review Mechanical Ventilation Hemod ynamic interpretat ion, assessment an d management Revie w and interpretati on of CXR Review a nd interpretation of lab values Revi ew and interpretat ion of microbiolog ic data and cultur e results Review o f medications and administration Rev iew and interpreta tion of Nutrition requirements and m anagement Discussi on of management w ith other consulta nts and services C linical update to family members [x ] Data and vital s ign review and int erpretation [x] Segun humphrey assessment, examination and in tervention [x] Doc umentation [x] Med ication orders and management Time spent for teaching as well as perfor aydin procedures ar e billed separatel y and is not inclu ded in this note ? Critical Care Annie e (min): 73 Procedures Arterial Line Size (Gauge): 20 Coding Level of Care Code Critical Care >/= 30 minutes Diagnoses Acute respiratory failure with hypoxia and hypercapnia J96.01; J96.02 Obstructive sleep apnea G47.33 Pneumonia J18.9 Flash pulmonary edema J81.0 Acute kidney injury N17.9 ARDS (adult respiratory distress syndrome) J80 Open wound of right hand S61.401A NSTEMI (non-ST elevated myocardial infarction) I21.4 Duodenal ulcer K26.9 Atrial fibrillation with RVR I48.91 Time Spent (min) 73
[2022-09-21 17:03] LABS: Troponin 5 6HR 174.5 ng/L (0-10)
--- NOTE | 2022-09-21 17:06 | P.CONIM_ITS ---
Providers/Reason For Consult Consulting Physician/Specialty*: Jaydon Fernandez MD/ Cardiology Reason for Consult*: Atrial fibrillation with RVR/ Troponin elevation Requesting Physician: Dr Estrada Attending Physician: Zeferino Estrada MD Primary Care Provider: Isacc Cisneros History of Present Illness History of Present Illness Le Almaraz is a 42 year old female with past medical history of hypertension was not on any medications presented to hospital with hypertensive urgency and pulmonary edema. She also developed pneumonia. She developed sepsis and became hypotensive. Requiring Levophed. Currently has BRIDGETTE and sta rted on dialysis. She also has GI bleed and was found to have bleeding duodenal ulcer. Cardiology was consulted as she went into A-fib with RVR and has troponin elevation. At time of admission she had echocardiogram that showed normal LV systolic function. Mild ST depressions with elevated heart rates. She is currently intubated. Review of Systems General: Reports: ROS unobtainable due to endotracheal tube Medications/Allergies Home Medications Medication Instructions Recorded Confirmed Last Taken Type No Known Home Medications 09/07/22 09/07/22 Unknown History Allergies Allergy/AdvReac Type Severity Reaction Status Date / Time No Known Allergies Allergy Verified 09/07/22 07:55 Current Medications Generic Name Dose Route Start Last Admin Trade Name Freq PRN Reason Stop Dose Admin Acetaminophen 650 mg 09/06/22 10:41 09/15/22 05:54 Acetaminophen 325 Mg Tablet PO 650 mg Q6H PRN Administration Mild/Mod Pain Or Temp >/= 101 Albuterol Sulfate 2.5 mg 09/11/22 09:54 09/19/22 08:05 Albuterol 2.5 Mg/3 Ml Neb INHALATION 2.5 mg Q4H.RESPIRATORY PRN Administration SHORTNESS OF BREATH Albuterol/Ipratropium 3 ml 09/13/22 12:00 09/21/22 17:01 Ipratropium-Albuterol 3 Ml Neb INHALATION 3 ml Q4H.RESPIRATORY STER[place] Administration Artificial Tears 1 applic 09/12/22 22:30 09/20/22 20:50 Artificial Tears Op Oint 3.5 Gm EYE-BOTH 1 applic BEDTIME [place] Administration Budesonide 0.5 mg 09/12/22 20:00 09/21/22 07:35 Budesonide 0.5 Mg/2 Ml Neb INHALATION 0.5 mg BID.RESPIRATORY [place] Administration Bumetanide 2 mg 09/14/22 02:00 09/21/22 12:37 Bumetanide 0.25 Mg/Ml Sdv 10 Ml IVP 2 mg Q8H [place] Administration Chlorhexidine Gluconate 1 applic 09/10/22 01:00 09/21/22 01:08 Chlorhexidine Gluconate 4% Btl 118 Ml TOPICAL 1 applic 0100 [place] Administration Docusate Sodium 50 mg 09/17/22 18:00 09/21/22 11:13 Docusate Sodium 10 Mg/Ml (5ml) Liq PO Not Given DAILY [place] Heparin Sodium (Porcine) 10,000 unit 09/11/22 19:50 09/21/22 16:07 Heparin, Porcine 1,000 Unit/Ml Inj 10 Ml HE 10,000 unit PRN PRN Administration Dialysis Heparin Sodium (Porcine) 0 unit 09/16/22 07:15 09/17/22 21:07 Heparin 5,000 Unit/Ml Inj 1 Ml IV 2,800 unit PRN PRN Administration Heparin weight-base protocol Protocol Hydrocortisone Sodium Succinate 100 mg 09/17/22 21:00 09/21/22 12:38 Hydrocortisone 100 Mg/2 Ml Sdv IVP 100 mg Q12H [place] Administration Propofol 1,000 mg in 100 mls @ 0 mls/hr 09/09/22 03:45 09/14/22 19:00 Diprivan IV Infused .Q0M [place] Titration Protocol Per Protocol Fentanyl 2,500 mcg/ Sodium 250 mls @ 0 mls/hr 09/09/22 04:45 09/21/22 01:33 Chloride IV 150 mcg/hr .Q0M [place] 15 mls/hr Administration Protocol Per Protocol Norepinephrine Bitartrate 4 mg 254 mls @ 0 mls/hr 09/11/22 17:00 09/20/22 18:02 / Dextrose IV 0 mcg/min .Q0M [place] 0 mls/hr Titration Protocol Per Protocol Midazolam HCl 100 mg/ Sodium 100 mls @ 0 mls/hr 09/13/22 19:15 09/20/22 18:02 Chloride IV 4 mg/hr .Q0M [place] 4 mls/hr Administration Protocol Per Protocol Heparin Sodium/Sodium Chloride 25,000 unit in 500 mls @ 0 mls/hr 09/16/22 07:15 09/20/22 05:00 Heparin Drip IV Infused .Q0M [place] Titration Protocol Per Protocol Vancomycin HCl 1,000 mg/ 250 mls @ 250 mls/hr 09/16/22 12:00 09/20/22 12:51 Sodium Chloride IV 250 mls/hr Q48H [place] Administration Protocol Piperacillin Sod/Tazobactam 50 mls @ 12.5 mls/hr 09/16/22 13:00 09/21/22 12:38 Sod 3.375 gm/ Sodium Chloride IV 12.5 mls/hr Q12H [place] Administration Protocol Amiodarone HCl 900 mg/ 518 mls @ 0 mls/hr 09/21/22 11:15 09/21/22 12:40 Dextrose/ IV Miscellaneous IV 1 mg/min Supplies .Q0M [place] 34.53 mls/hr Administration Protocol Per Protocol Levothyroxine Sodium 50 mcg 09/15/22 10:15 09/21/22 12:37 Levothyroxine 100 Mcg Sdv IVP 50 mcg DAILY [place] Administration Ondansetron HCl 4 mg 09/06/22 10:41 09/08/22 16:34 Ondansetron 2 Mg/Ml Sdv 2 Ml IVP 4 mg Q8H PRN Administration vomiting, or N/V if npo Pantoprazole Sodium 40 mg 09/20/22 09:00 09/21/22 12:37 Pantoprazole 40 Mg Sdv IVP 40 mg BID [place] Administration Silver Sulfadiazine 1 applic 09/15/22 21:00 09/21/22 05:50 Silver Sulfadiazine Cream 1% 50 Gm TOPICAL 1 applic QAM&BEDTIME [place] Administration Sucralfate 1 gm 09/20/22 17:00 09/21/22 04:50 Sucralfate 1 Gm Tablet PO Not Given Q12H [place] PFSH Acute PFSH: Medical History (Updated 09/21/22 @ 17:24 by Zeferino Estrada MD) CHF (congestive heart failure) Essential hypertension Hypertension screen Hypoxia Medication management Polycystic ovarian disease Vitamin D deficiency Surgical History S/P cholecystectomy S/P D&C (status post dilation and curettage) S/P tubal ligation Social History Smoking and tobacco status: former smoker Quit status (tobacco): has quit using tobacco Second hand smoke exposure: No Smoking risk assessment/counseling performed?: No Alcohol intake: never Desire information about alcohol rehabilitation?: No Counseling given: No Desire information about substance/drug rehabilitation?: No Counseling given: No Vitals/I&O/Wt Last Vital Signs Temp 98.4 F 09/21/22 04:00 Pulse 107 H 09/21/22 16:00 Resp 22 H 09/21/22 17:02 BP 117/65 09/21/22 15:00 Pulse Ox 93 09/21/22 17:02 O2 Del Method 09/21/22 16:00 O2 Flow Rate 6 09/08/22 09:00 FiO2 55 09/21/22 17:02 09/21/22 09/21/22 09/21/22 06:59 14:59 22:59 Intake Total 125.667 / 864.348 Output Total 900 / 2900 Balance -774.333 / -2035.652 Weight last 48 hrs Weight 362 lb Weight 362 lb Physical Exam Narrative: GENERAL: Patient is intubated and sedated HEART: Irregularly irregular, tachycardic LUNGS: Diminished air entry ABDOMEN: Soft EXTREMITIES: Lower extremities with 1+ edema bilaterally. Urinary Catheter Management: Cha: Cath Placed During This Visit: yes Reason for Continuing Indwelling Catheter: Accurate Measurement of Urinary Output in Critically Ill Patients Urinary Catheter Date of Insertion: 09/08/22 Urinary Catheter Time of Insertion: 10:29 Data 09/21/22 10:15 09/21/22 11:40 Micro: Microbiology 09/16/22 13:27 Blood Culture - Final Blood Staphylococcus epidermidis 09/20/22 02:56 Stool Lactoferrin - Final Stool Enteric Pathogens (PCR) - Final Parasite Antigen Panel - Final Occult Blood (FIT) - Final 09/19/22 15:55 Blood Culture - Preliminary Blood NEGATIVE TO DATE A&P Assessment and plan (1) Atrial fibrillation with RVR: (2) Duodenal ulcer: (3) GI bleed: (4) Shock: (5) ARDS (adult respiratory distress syndrome): (6) Acute respiratory failure with hypoxia and hypercapnia: (7) Obstructive sleep apnea: (8) Acute kidney injury: (9) Sepsis: (10) Pneumonia: Plan Patient has multiple medical problems going on. She has GI bleed, BRIDGETTE requiring dialysis, sepsis. Troponin elevation is likely secondary to demand ischemia. Will medically treat at this time. Once patient is stable, can consider stress testing She has developed A-fib with RVR. Has been started on amiodarone drip. Continue for now. Continue telemetry monitoring Hold off on anticoagulation as he has a bleeding duodenal ulcer. If hemoglobin stabilizes, can consider anticoagulation in 1 to 2 days. Medical management per primary team Thank you for involving us with care of this patient. We will continue to follow. Please call with questions. Consult Attestations Medical Necessity Statement: Care expected to cross 2 midnights. Procedures Arterial Line Size (Gauge): 20 Coding Level of Care Code Acute Code for Chg Fwd Diagnoses Atrial fibrillation with RVR I48.91 Duodenal ulcer K26.9 GI bleed K92.2 Shock R57.9 ARDS (adult respiratory distress syndrome) J80 Acute respiratory failure with hypoxia and hypercapnia J96.01; J96.02 Obstructive sleep apnea G47.33 Acute kidney injury N17.9 Sepsis A41.9 Pneumonia J18.9
[2022-09-21 17:08] LABS: Troponin 5 6HR Delta 54.5 ng/L (0-12)
--- NOTE | 2022-09-21 17:14 | ECG_ITS ---
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 Measurements Intervals [place] Rate: 110 P: 0 CT: 0 QRS: 10 QRSD: 120 T: 139 QT: 301 QTc: 409 Interpretive Statements ATRIAL FIBRILLATION WITH RAPID VENTRICULAR RESPONSE MODERATE INTRAVENTRICULAR CONDUCTION DELAY [110+ ms QRS DURATION] ST DEVIATION AND MODERATE T-WAVE ABNORMALITY, CONSIDER LATERAL ISCHEMIA [-0.1+ mV T-WAVE IN I/aVL/V5/V6] Compared to ECG 09/21/2022 13:48:05 Intraventricular conduction delay now present Sinus tachycardia no longer present T-wave abnormality still present Possible ischemia still present Electronically Signed On 09-21-2022 18:44:12 CDT by Jaydon Fernandez M.D. [id number]
[2022-09-21] MEDS: sucralfate 1 gm Tablet PO ×2 (18:09→22:15)
[2022-09-21] MEDS: artificial tears Op Oint 3.5 gm 1 APPLIC EYE-BOTH (21:56)
[2022-09-21] MEDS: atorvastatin 40 mg Tablet PO (21:56)
[2022-09-21] MEDS: acetaminophen 325 mg Tablet 650 MG PO (22:14)
[2022-09-21 22:46] LABS: Glucose Point of Care 90 mg/dL (70-110)
--- NOTE | 2022-09-21 23:39 | PC.HD ---
Pt to OR for tunnelled cath placement today, went into A-fib w/RVR and amiodarone was initiated. Levophed gtt titrating per [employer] to keep SBP >100. Pt came back with new tunnelled cath open to air, no dressing. site cleaned well with CHG and covaderm dressing applied
[2022-09-22] VITALS (108 sets, daily range): BP systolic 76–137; BP diastolic 42–99; PULSE 103–130; RESP 18–36; TEMP 36.9–37.3; O2SAT 50–100
[2022-09-22] MEDS: bumetanide 0.25 mg/mL SDV 10 mL 2 MG IVP ×3 (00:29→17:31)
[2022-09-22] MEDS: piperacillin-tazobactam 3.375 GM in sodium chloride 0.9% (plus) 50 ML IV ×2 (00:30→13:05)
[2022-09-22] MEDS: chlorhexidine gluconate 4% Btl 118 mL 1 APPLIC TOPICAL (00:40)
[2022-09-22 01:51] LABS: INR 1.08 (0.8-1.2)
[2022-09-22 01:57] LABS: Lactate (Lactic Acid level) 0.9 mmol/L (0.5-2.2)
[2022-09-22 02:02] LABS: Troponin T (5th) Once 164 ng/L (0-10)
[2022-09-22 02:08] LABS: NT Pro B Type Natriuretic Pept 1773 pg/mL (0-125); Procalcitonin 2.09 ng/mL (0-0.5)
[2022-09-22 02:19] LABS: C Reactive Protein 9.7 mg/L (0.0-4.9); Magnesium 2.1 mg/dL (1.7-2.3); Phosphorus 4.9 mg/dL (2.5-4.5)
[2022-09-22] MEDS: ipratropium-albuterol 3 mL Neb INHALATION ×6 (03:35→21:20)
--- NOTE | 2022-09-22 04:50 | PC.NURSE ---
09/21/222129 - Per cardiology tech pt will need a contrast in order to properly visualize heart through body habitus. Dr. Chou notified of this. Asked to consult with Nephrology to make sure pt is okay to take. 09/21/222139 - Dr. Barbosa notified of above. Given okay to give contrast. 09/21/222199 - Pt mother notified of md's agreement that benefits outweigh risks for echo. Educated on contrast, echo, and possible side effects. Pt mother states she does not want to consent to contrast at this time as she is too 'shaky and anxious'. Dr. Chou notified of this.
[2022-09-22] MEDS: sucralfate 1 gm Tablet PO ×4 (05:46→22:54)
[2022-09-22] MEDS: silver sulfadiazine cream 1% 50 gm 1 APPLIC TOPICAL ×2 (05:46→20:26)
[2022-09-22 06:04] LABS: ABG PCO2 35.9 mmHg (35-45); ABG PH Result 7.39 (7.35-7.45); Alveolar-Arterial Oxygen Gradi 23.8 mmHg (5-10); Blood Gas Operator Identificat JB; Blood Gas Sample Site Not specified; Blood Gas Sample Type Arterial; Carboxyhemoglobin 1.1 %THgb (0.4-20.1); HCO3 ABG 21.5 mmol/L (22-26); HGB O2 Sat 96.4 % (95-100); Ionized Calcium Level - ABG 1.3 mmol/L (1.1-1.4); Methemoglobin 0.3 % (0.4-1.5); Oxygen Device VENT; Oxygen Saturation ABG 97.7; PO2 ABG 89.8 mmHg (80.0-100.0); Potassium Level - ABG 3.2 mmol/L (3.5-5.0); Total Hemoglobin 12.4 g/dL (12-16)
[2022-09-22 06:05] LABS: Blood Gas Tidal Volume 0.42
[2022-09-22 06:34] LABS: Glucose Point of Care 88 mg/dL (70-110)
[2022-09-22 06:34] LABS: Glucose Point of Care 92 mg/dL (70-110)
[2022-09-22] MEDS: budesonide 0.5 mg/2 mL Neb INHALATION ×2 (07:49→21:20)
[2022-09-22] MEDS: midodrine 5 mg TABLET 10 MG PO ×3 (08:17→20:28)
[2022-09-22] MEDS: levothyroxine 100 mcg SDV 50 MCG IVP (08:19)
[2022-09-22] MEDS: docusate sodium 10 mg/mL (5ml) Liq 50 MG PO (08:19)
[2022-09-22] MEDS: pantoprazole 40 mg SDV IVP ×2 (08:19→17:31)
--- NOTE | 2022-09-22 08:19 | XR_ITS ---
WS: [id number] Exam: XR chest 1V portable [id number] Date/Time of Exam: 09/22/2022 8:35 AM Reason For Exam: Hypoxia Comparison 09/21/2022 at 10:28 AM. Bilateral pulmonary infiltrates are unchanged. The heart remains enlarged. No pneumothorax is seen. E T tube ends about 6 cm above the maynor in good position. A double lumen left IJ catheter extends int o the right atrium. An enteric tube extends below the level of the diaphragm but the tip is not visib le. Previously noted right IJ catheter appears to have been removed. Bony structures are intact. The mediastinum is stable in appearance. XR/XR chest 1V portable [id number] IMPRESSION: 1. Chest x-ray unchanged since the previous exam. 2. The right-sided IJ catheter has been removed since prior study.
[2022-09-22] MEDS: lactated ringers 500 ML 100 ML IV (08:30)
[2022-09-22 09:04] LABS: Glucose Point of Care 86 mg/dL (70-110)
[2022-09-22 09:31] LABS: Troponin T (5th) Once 162 ng/L (0-10)
--- NOTE | 2022-09-22 11:19 | PC.NUTR ---
TPN consult received. Recommend clinimix 5/20 beginning at 13 cc/hr and increasing 10 cc/hr Q8H until infusing at 83 cc/hr; with 25 g/125 cc fat emulsion, standard electrolytes and MV 10 ml/day. Details in RD assessment.
--- NOTE | 2022-09-22 12:36 | PM.PN ---
Subjective Subjective: on 40n% fio2 UOP improved Medications: Reviewed: Yes Vitals/I&O/Wt Last Vital Signs Temp 98.6 F 09/22/22 08:00 Pulse 122 H 09/22/22 12:00 Resp 20 H 09/22/22 11:52 BP 103/69 09/22/22 12:00 Pulse Ox 93 09/22/22 12:00 O2 Del Method 09/22/22 11:47 O2 Flow Rate 6 09/08/22 09:00 FiO2 40 09/22/22 11:52 09/21/22 09/22/22 09/22/22 22:59 06:59 14:59 Intake Total 1221.486 / 1221.486 202.844 / 1424.330 363.999 / 363.999 Output Total 4194 / 4194 1100 / 5294 Balance -2972.514 / -2972.514 -897.156 / -3869.670 363.999 / 363.999 Weight last 48 hrs Weight 167.557 kg Weight 168.2 kg Weight 164.2 kg Physical Exam Narrative: intbated sedated Urinary Catheter Management: Cha: Cath Placed During This Visit: yes Reason for Continuing Indwelling Catheter: Accurate Measurement of Urinary Output in Critically Ill Patients Urinary Catheter Date of Insertion: 09/08/22 Urinary Catheter Time of Insertion: 10:29 Data 09/21/22 10:15 09/21/22 11:40 Micro: Microbiology 09/16/22 11:07 Blood Culture - Final Blood NO GROWTH AFTER 5 DAYS 09/16/22 13:27 Blood Culture - Final Blood Staphylococcus epidermidis 09/20/22 02:56 Stool Lactoferrin - Final Stool Enteric Pathogens (PCR) - Final Parasite Antigen Panel - Final Occult Blood (FIT) - Final A&P Assessment and plan (1) Acute kidney injury: Plan 1. Acute kidney injury. Different includes contrast nephropathy, sepsis, acute interstitial nephritis, hemodynamic. . Due to high O2 requirement and worsening renal function patient was started on HD. Would like to keep her on a negative fluid balance, Eval daily for hD needs. baseline creatinine was normal prior to admission at 0.5. Status post permacath placement yesterday due to no improvement in renal function and anticipation of requiring dialysis for few weeks/months -Plan for HD today 2. Volume overload:HD as above , 3. Primary respiratory acidosis, hypercapneic respiratory failure on ventilator, plans to extubate today 4. sepsis with pneumonia 6. HTN Attestations Medical Necessity Statement*: Per primary Procedures Arterial Line Size (Gauge): 20 Coding Level of Care Code Acute Code for Chg Fwd Diagnoses Acute kidney injury N17.9
--- NOTE | 2022-09-22 13:52 | P.PN_ITS ---
Subjective Subjective: Patient was seen this morning, multiple times, currently on metoprolol, she is following commands, 40% FiO2, on 4 of Levophed, currently in A-fib, heart rates in the 120s, she is placed on spontaneous breathing trial, patient's mother at bedside, updated, patient mother declined echocardiogram wit h contrast, due to current pressure kidney injury, had a detailed discussion with her about it, and nephrology is okay with it, however for now she wants to think on it Vitals/I&O/Wt Last Vital Signs Temp 98.6 F 09/22/22 08:00 Pulse 122 H 09/22/22 12:00 Resp 20 H 09/22/22 11:52 BP 103/69 09/22/22 12:00 Pulse Ox 93 09/22/22 12:00 O2 Del Method 09/22/22 11:47 O2 Flow Rate 6 09/08/22 09:00 FiO2 40 09/22/22 11:52 09/21/22 09/22/22 09/22/22 22:59 06:59 14:59 Intake Total 1221.486 / 1221.486 202.844 / 1424.330 363.999 / 363.999 Output Total 4194 / 4194 1100 / 5294 Balance -2972.514 / -2972.514 -897.156 / -3869.670 363.999 / 363.999 Weight last 48 hrs Weight 167.557 kg Weight 168.2 kg Weight 164.2 kg Physical Exam Narrative: Currently intubated, on minimal sedation, follows commands Const: COMMON NORMALS: no acute distress Resp: COMMON NORMALS: normal respiratory effort, No retractions, No use of accessory muscles and clear to auscultation bilaterally AUSCULTATION: clear to auscultation bilaterally Cardio: COMMON NORMALS: regular rate, regular rhythm, S1 normal heart sound present and S2 normal heart sound present RATE: regular rate RHYTHM: regular rhythm HEART SOUNDS: S1 normal heart sound present and S2 normal heart sound present GI: COMMON NORMALS: Normal to inspection, nondistended, normoactive bowel sounds present and non-tender Extremity: COMMON NORMALS: no pedal edema Urinary Catheter Management: Cha: Cath Placed During This Visit: yes Reason for Continuing Indwelling Catheter: Accurate Measurement of Urinary Output in Critically Ill Patients Urinary Catheter Date of Insertion: 09/08/22 Urinary Catheter Time of Insertion: 10:29 Data 09/21/22 10:15 09/21/22 11:40 Micro: Microbiology 09/16/22 11:07 Blood Culture - Final Blood NO GROWTH AFTER 5 DAYS 09/16/22 13:27 Blood Culture - Final Blood Staphylococcus epidermidis 09/20/22 02:56 Stool Lactoferrin - Final Stool Enteric Pathogens (PCR) - Final Parasite Antigen Panel - Final Occult Blood (FIT) - Final A&P Assessment and plan (1) ARDS (adult respiratory distress syndrome): (2) Shock: (3) Acute respiratory failure with hypoxia and hypercapnia: (4) Obstructive sleep apnea: (5) CHF (congestive heart failure): Qualifiers: Heart failure type: diastolic Heart failure chronicity: acute on chronic Qualified Code(s): I50.33 - Acute on chronic diastolic (congestive) heart failure (6) Dialysis patient: (7) Acute kidney injury: (8) S/P bronchoscopy with bronchoalveolar lavage: On 09/13. Encountered high mucus in left lower lobe. Follow cultures. Patient desaturated during procedures to high 70s and low 80s but otherwise tolerated procedure well. (9) Pneumonia: (10) Sepsis: (11) Flash pulmonary edema: (12) Hypertensive emergency: (13) Essential hypertension: (14) Fever: (15) Goals of care, counseling/discussion: (16) Ventilator dependent: (17) Open wound of right hand: (18) GI bleed: (19) Atrial fibrillation with RVR: (20) Duodenal ulcer: (21) NSTEMI (non-ST elevated myocardial infarction): Plan 42 year old female with known past medical history of hypertension noncompliant with antihypertensive medication, morbid obesity, was accepted as a direct transfer, she was initially admitted for the management of substernal chest pain, associated with acute onset of worsening shortness of breath. Assessment: ARDS: Hypoxic and hypercapnic respiratory failure: Currently intubated. Most likely in setting of decompensated congestive heart failure in setting of hypertensive emergency and acute kidney dysfunction in setting of obstructive sleep apnea and pneumonia. Continue with Bumex to 2 mg 3 times daily. Negative around -13 L today. Fluid restriction as much as possible Hold off on tube feeds for now to reduce fluid intake. Concern for fluid overload with possible mucous and left lower lobe for which s he underwent bronchoscopy. Poor study for pulmonary embolism given movement artifacts. Repeat D-dimer still elevated and given patient requiring high oxygen supplementation even after maximum treatment for now, heparin drip currently on hold due to dark tarry stools Monitor daily weights. Echocardiogram done during hospitalization shows EF of 60% with grade 1 diastolic dysfunction. Patient will need an outpatient sleep study to quantify sleep apnea. Continue vancomycin, Zosyn We will hold hydrocortisone, this potentially could have stress ulcers associate with steroids Fever: Afebrile, last 24 hours Blood cultures growing Staph epidermidis 1 out of 4 bottles. Likely contami nation, but given critical sickness for now we will repeat blood cultures from all the lines including arterial line, femoral line, HD catheter. Multiple lines all done within the last 1 week. For now empirically continue with vancomycin and Zosyn. Previously blood cultures so far negative. Bronc cultures negative. Urine Legionella, bacterial antigen negative. Urine culture benign. Sputum culture negative. MRSA swab negative. A-fib with RVR -Continue amiodarone drip, will consider switching to p.o. amiodarone NSTEMI -Cardiology consulted -Serial EKGs serial troponins telemetry monitoring -Has duodenal ulcers so we will have to hold off on anticoagulant therapy and antiplatelet therapy -Cardiac echo ordered, however patient's mother declines for now BRIDGETTE : Possibly secondary to ATN secondary to sepsis, in the setting of acute hypotension, versus possibly secondary to antihypertensive effects. Possible contrast-induced nephropathy as she has received a CTA recently, possible AIN Continue daily dialysis for now. Bumex 2 mg every 8 hourly. Status post permacath placement, received 1 session of dialysis today Given patient being ventilator dependent with difficult extubation given multiple comorbidities it would be best for patient to be as net negative as possible. Shock -Currently secondary to dialysis, A-fib with RVR -On 4 of Levophed Sepsis secondary to hospital-acquired pneumonia: Currently hypotensive likely secondary to dialysis A-fib with RVR Sepsis during admission which was ruled in with elevated white cell count, hypotensive, target organ dysfunction with increasing oxygen requirement and eventual intubation, need for vasopressor support, x-ray chest showing possible infiltrates. Wean Levophed while keeping mean arterial pressure over 65. Saturation over 92%. Continue with sedation with fentanyl Continue vancomycin and Zosyn Follow cultures Subclinical hypothyroidism: TSH still elevated. Free T4 levels below normal. Check cortisol were suboptimally normal. Hydrocortisone been weaned down. Will monitor response and plan to wean gradually. Monitor blood sugars. Hypertension with hypertensive emergency with flash pulmonary edema on admission: Resolved Blood pressure is better controlled. We will continue to monitor blood pressures and start treatment accordingly. Goal blood pressure less than 140/ 90 mmHg with mean over 65 Right upper extremity swelling: DVT ruled out. Does have blister on the dorsum of right hand due to infiltration of IV antibiotics. Continue to monitor. Right hand -Area of IV infiltration, I was told it was Zosyn -Area of open excoriation, concerns for underlying necrosis well demarcated borders, -Continue broad-spectrum antibiotic therapy -Continue wound care -At some point and will need to be debrided GI bleed -Patient's OG tube, and rectal tube output has been black and tarry -Hemoccult stool positive for blood -KUB negative for bowel obstruction, keep n.p.o. -Continue Protonix 40 IV twice daily, Carafate every 6 hours -Status post EGD showed duodenal ulcer shallow, bleeding requiring epinephrine -Heparin drip on hold -General surgery on consult Sedation: Fentanyl, Precedex Glycemic control: Hypoglycemia protocol Nutrition: Start tube feeds today. CODE STATUS: Discussed in detail with patient mother and who is the DPOA at bedside. Patient is full code. We discussed need for dialysis for quick improvement. Family verbalized understanding and are agreeable. PUD prophylaxis: Protonix DVT prophylaxis: SCDs, heparin drip on hold Discharge planning: Likely will require LTAC placement Continue with care at ICU Plan for the day: Ventilator settings adjusted, increase PEEP, respiratory rate and repeat ABG Can plan for sedation vacation and possible weaning trials within next 24 to 48 hours. Continue to wean sedation, monitor mentation, has issues with restrictions Start tube feeds Heart rate control Monitor troponin Monitor hemoglobin, monitor for recurrent bloody black stools Monitor hemoglobin Keep mean artery pressure 65. Follow-up repeat cultures being sent today from all the lines. Continue with vancomycin and Zosyn for now. Continue with hydrocortisone 100 mg every 12 hourly. Spoke to pulmonary Spoke to cardiology Spoke to nursing staff Attestations Medical Necessity Statement*: Patient requires hospital for acute respiratory failure, shock, A-fib, NSTEMI Procedures Arterial Line Size (Gauge): 20 Coding Level of Care Code Critical Care >/= 30 minutes Critical care time (in minutes): 50 The high probability of a clinically significant, sudden or life threatening deterioration, as referenced in this documentation, required my full and direct attention, intervention and personal management. The critical care time shown is in addition to time spent performing any reported separately billable procedures and includes the following: [x] Data and vital sign review and interpretation [x ] Patient assessment, examination and intervention [x] Medication orders and management [x] Patient/Family updates as able [x] Care Coordination and Documentation. Diagnoses ARDS (adult respiratory distress syndrome) J80 Shock R57.9 Acute respiratory failure with hypoxia and hypercapnia J96.01; J96.02 Obstructive sleep apnea G47.33 CHF (congestive heart failure) I50.33 Heart failure type: diastolic Heart failure chronicity: acute on chronic Dialysis patient Z99.2 Acute kidney injury N17.9 S/P bronchoscopy with bronchoalveolar lavage Z98.890 Pneumonia J18.9 Sepsis A41.9 Flash pulmonary edema J81.0 Hypertensive emergency I16.1 Essential hypertension I10 Fever R50.9 Goals of care, counseling/discussion Z71.89 Ventilator dependent Z99.11 Open wound of right hand S61.401A GI bleed K92.2 Atrial fibrillation with RVR I48.91 Duodenal ulcer K26.9 NSTEMI (non-ST elevated myocardial infarction) I21.4
[2022-09-22 14:17] LABS: Basophils # 0.1 10^3/uL (0.0-0.1); Basophils % 0.8 %; Eosinophils # 0.2 10^3/uL (0.0-0.8); Eosinophils % 1.7 %; Hematocrit 37.6 % (37.0-47.0); Hemoglobin 11.9 g/dL (11.5-15.3); Lymphocytes # 2.2 10^3/uL (0.8-4.8); Lymphocytes % 19.6 %; Mean Corpuscular HGB Conc 31.6 g/dL (30.0-36.0); Mean Corpuscular Hemoglobin 28.1 pg (28.0-34.0); Mean Corpuscular Volume 88.7 fl (81-99); Mean Platelet Volume 9.9 fL (7.4-10.4); Monocytes # 0.8 10^3/uL (0.2-0.9); Monocytes % 6.9 %; Neutrophils # 7.79 10^3/uL (1.8-7.7); Neutrophils % 68.2 %; Nucleated Red Blood Cells % 0 %; Platelet Count 217 10^3/cmm (130-400); Red Blood Count 4.24 10^6/uL (4.1-5.3); Red Cell Distribution Width 13.4 % (12.1-15.1); White Blood Count 11.4 10^3/uL (4.0-10.0)
--- NOTE | 2022-09-22 14:36 | PC.NUTR ---
Updated consult for TF instead of TPN. Recommend Pulmocare 1.5 starting @ 10 mls/hr, increasing 10 mls Q8H as tolerated until goal rate of 60 mls/hr is reached; as well as flushes of 100 mls Q4H. Details in RD assessment.
[2022-09-22 14:51] LABS: Alanine Aminotransferase 33 U/L (0-33); Alkaline Phosphatase 53 U/L (35-105); Anion Gap 21.2 (5-19); Aspartate Amino Transferase 32 U/L (0-32); Calcium 9.8 mg/dL (8.5-10.5); Carbon Dioxide 22 mmol/L (22-29); Chloride 96 mmol/L (98-107); Free T4 Free Thyroxine 1.54 ng/dL (0.82-1.77); Globulin 2.8 g/dL (1.3-4.6); Glomerular Filtration Rate 8.9 mL/min (90-130); Glucose 96 mg/dL (65-115); Osmolality Calculated 307 mOsm/kg (285-295); Potassium 3.2 mmol/L (3.5-5.1); Sodium 136 mmol/L (136-145); T3 Free 2.1 PG/ML (2.0-4.4); Thyroid Stimulating Hormone 13.22 uIU/mL (0.27-4.20); Total Bilirubin 0.5 mg/dL (0.15-1.2); Total Protein 6.8 g/dL (6.6-8.7)
[2022-09-22 15:04] LABS: Blood Urea Nitrogen 83 mg/dL (6-20)
[2022-09-22 15:14] LABS: ABG PCO2 47.9 mmHg (35-45); ABG PH Result 7.29 (7.35-7.45); Arterial Blood Gas Hematocrit 38.8 % (37-47); Blood Gas Allen Test Pos; Blood Gas Sample Type Arterial; Carboxyhemoglobin 1.1 %THgb (0.4-20.1); HCO3 ABG 22.8 mmol/L (22-26); Ionized Calcium Level - ABG 1.3 mmol/L (1.1-1.4); Methemoglobin 0.4 % (0.4-1.5); Oxygen Saturation ABG 96.4; PO2 ABG 88.4 mmHg (80.0-100.0); Potassium Level - ABG 3.3 mmol/L (3.5-5.0); Total Hemoglobin 12.6 g/dL (12-16)
[2022-09-22 15:15] LABS: Alveolar-Arterial Oxygen Gradi 17.4 mmHg (5-10); Blood Gas Operator Identificat MONRO; Blood Gas Sample Site Radial, right; Blood Gas Tidal Volume 0.42; Oxygen Device VENT
[2022-09-22] MEDS: heparin, porcine 1,000 unit/mL INJ 10 mL 10000 UNIT HE (15:39)
[2022-09-22 16:00] LABS: Glucose Point of Care 97 mg/dL (70-110)
--- NOTE | 2022-09-22 16:26 | PC.HD ---
Pt receiving IVF @100ml/hr, Leigh ISAACS says doc giving 500ml to see if it helps tachycardia. Pt on amiodarone gtt for A-Fib w/RVR, rate 120s. Dr Barbosa ntfd and order rec'd to hold UF. Dr Barbosa also ntfd of K 3.3 yesterday (no labs done today) and order rec'd to change from 2K to 3K bath. SBP in 80s prior to tx but came up to 100 before tx start, Levophed available if needed. Pt is off sedation, on vent but breathing on her own, restless/agitated at times. Arterial port of cath won't draw, flushes easily. Lines reversed.
--- NOTE | 2022-09-22 17:29 | P.PN_ITS ---
Subjective Subjective: Patient is intubated but awake. Off Levophed today. Still in afib with RVR. On dialysis. Vitals/I&O/Wt Last Vital Signs Temp 98.6 F 09/22/22 16:22 Pulse 120 H 09/22/22 16:22 Resp 34 H 09/22/22 16:22 BP 100/80 09/22/22 16:22 Pulse Ox 95 09/22/22 16:15 O2 Del Method 09/22/22 15:19 O2 Flow Rate 6 09/08/22 09:00 FiO2 40 09/22/22 15:20 09/22/22 09/22/22 09/22/22 06:59 14:59 22:59 Intake Total 202.844 / 1424.330 363.999 / 363.999 858.518 / 1222.517 Output Total 1100 / 5294 Balance -897.156 / -3869.670 363.999 / 363.999 858.518 / 1222.517 Weight last 48 hrs Weight 369 lb 6.4 oz Weight 370 lb 13.08 oz Weight 362 lb Physical Exam Narrative: GENERAL: Patient is intubated HEART: Irregularly irregular, tachycardic LUNGS: Diminished air entry ABDOMEN: Soft EXTREMITIES: Lower extremities with 1+ edema bilaterally. Urinary Catheter Management: Cha: Cath Placed During This Visit: yes Reason for Continuing Indwelling Catheter: Accurate Measurement of Urinary Output in Critically Ill Patients Urinary Catheter Date of Insertion: 09/08/22 Urinary Catheter Time of Insertion: 10:29 Data 09/22/22 14:01 09/22/22 14:01 Micro: Microbiology 09/16/22 11:07 Blood Culture - Final Blood NO GROWTH AFTER 5 DAYS 09/16/22 13:27 Blood Culture - Final Blood Staphylococcus epidermidis 09/20/22 02:56 Stool Lactoferrin - Final Stool Enteric Pathogens (PCR) - Final Parasite Antigen Panel - Final Occult Blood (FIT) - Final A&P Assessment and plan (1) Atrial fibrillation with RVR: (2) Duodenal ulcer: (3) GI bleed: (4) Shock: (5) ARDS (adult respiratory distress syndrome): (6) Acute respiratory failure with hypoxia and hypercapnia: (7) Obstructive sleep apnea: (8) Acute kidney injury: (9) Sepsis: (10) Pneumonia: Plan Patient continues to be in A-fib with RVR. Continue amiodarone. Switching to p .o. today. As she is off of Levophed today and blood pressure is borderline elevated, we will start metoprolol 25 mg twice daily. Can be uptitrated based on the blood pressures. If hemoglobin stays stable by tomorrow, can initiate anticoagulation Medical management per primary team Thank you for involving us with care of this patient. We will continue to follow. Please call with questions. Attestations Medical Necessity Statement*: Care expected to cross 2 midnights. Procedures Arterial Line Size (Gauge): 20 Coding Level of Care Code Acute Code for Chg Fwd Diagnoses Atrial fibrillation with RVR I48.91 Duodenal ulcer K26.9 GI bleed K92.2 Shock R57.9 ARDS (adult respiratory distress syndrome) J80 Acute respiratory failure with hypoxia and hypercapnia J96.01; J96.02 Obstructive sleep apnea G47.33 Acute kidney injury N17.9 Sepsis A41.9 Pneumonia J18.9
[2022-09-22] MEDS: amiodarone 200 mg Tablet 400 MG PO (17:31)
[2022-09-22] MEDS: heparin, porcine 1,000 unit/mL INJ 10 mL 10000 UNIT INTRACATH (17:38)
[2022-09-22] MEDS: metoprolol tartrate 25 mg Tablet PO (17:46)
[2022-09-22] MEDS: ondansetron 2 mg/ML SDV 2 mL 4 MG IVP (17:50)
--- NOTE | 2022-09-22 17:59 | PC.NURSE ---
went to administer PO medications through OG tube. Patient vomited on ventilator. Dr. Estrada was notified. Patient was placed on OG suction. Patient OG clamped for a few minutes.
[2022-09-22] MEDS: dexmedetomidine 400 MCG in sodium chloride 0.9% (100 ml) 100 ML IV (18:23)
[2022-09-22] MEDS: vancomycin 1,000 MG in sodium chloride 0.9% 250 ML 250 MG IV (19:20)
[2022-09-22 20:17] LABS: Glucose Point of Care 95 mg/dL (70-110)
[2022-09-22] MEDS: atorvastatin 40 mg Tablet PO (20:28)
[2022-09-22] MEDS: artificial tears Op Oint 3.5 gm 1 APPLIC EYE-BOTH (20:28)
--- NOTE | 2022-09-22 23:04 | P.PN_ITS ---
Subjective Subjective: Seen patient at bedside multiple times today Earlier in the day she was on 45% FiO2 and PEEP of 10-which was reduced to 35% and PEEP of 8; report of sedation and placed patient on SIMV rate of 14 but she was not generating enough breaths -ABG in the afternoon showed respiratory acidosis with serum CO2 retention-we will put her back on CMV and started on Precedex and try for SBT tomorrow morning -Today she will receive hemodialysis to remove ultrafiltrate -Heart rate continues to be between 1 10-1 20 bpm-she is still on amiodarone drip -Rectal tube did not show any black stool -Other labs and imaging reviewed Medications: Reviewed: Yes Medication Review Details: Generic Name Dose Route Start Last Admin Trade Name Freq PRN Reason Stop Dose Admin Acetaminophen 650 mg 09/06/22 10:41 09/07/22 04:50 Acetaminophen 32 5 Mg Tablet PO 650 mg Q6H PRN Administration Mild/Mod Pain Or Temp >/= 101 Albuterol/Ipratrop ium 3 ml 09/06/22 10:45 09/10/22 08:21 Ipratropium-Albu terol 3 Ml Neb INHALATION 3 ml Q6H.RESP PRN Administration SHORTNESS OF KVNG TH Chlorhexidine Gluc millie 1 applic 09/10/22 01:00 09/10/22 04:17 Chlorhexidine Gl uconate 4% Btl 118 Ml TOPICAL Not Given 0100 STERLING Heparin Sodium (Po rcine) 5,000 unit 09/06/22 10:45 09/10/22 11:01 Heparin 5,000 Un it/Ml Inj 1 Ml SUBCUT 5,000 unit Q8H ST[place] Administration Norepinephrine Bit artrate 4 mg 254 mls @ 0 mls/h r 09/07/22 22:30 09/08/22 13:45 / Dextrose IV Infused .Q0M ST[place] Titration Protocol Per Protocol Norepinephrine Bit artrate 8 mg 508 mls @ 0 mls/h r 09/08/22 11:30 09/09/22 10:04 / Dextrose IV 0 mcg/min .Q0M STERLING 0 mls/hr Titration Protocol Per Protocol Propofol 1,000 mg in 100 m ls @ 0 mls/hr 09/09/22 03:45 09/10/22 08:33 Diprivan IV 30 mcg/kg/min .Q0M ST[place]ING 31.14 mls/hr Administration Protocol Per Protocol Fentanyl 2,500 mcg / Sodium 250 mls @ 0 mls/h r 09/09/22 04:45 09/09/22 13:56 Chloride IV 30 mcg/hr .Q0M ST[place] 3 mls/hr Titration Protocol Per Protocol Piperacillin Sod/T azobactam 50 mls @ 12.5 mls /hr 09/10/22 08:00 09/10/22 07:58 Sod 2.25 gm/ Sod ium Chloride IV 12.5 mls/hr Q8H [place] Administration Ondansetron HCl 4 mg 09/06/22 10:41 09/08/22 16:34 Ondansetron 2 Mg /Ml Sdv 2 Ml IVP 4 mg Q8H PRN Administration vomiting, or N/V if npo Vitals/I&O/Wt Last Vital Signs Temp 99.1 F 09/22/22 21:20 Pulse 127 H 09/22/22 22:00 Resp 22 H 09/22/22 22:00 BP 96/72 09/22/22 22:00 Pulse Ox 91 09/22/22 22:00 O2 Del Method 09/22/22 22:00 O2 Flow Rate 6 09/08/22 09:00 FiO2 40 09/22/22 22:00 09/22/22 09/22/22 09/23/22 14:59 22:59 06:59 Intake Total 363.999 / 620.242 7571.469 / 2100.468 Output Total 1317 / 1317 Balance 363.999 / 363.999 419.469 / 783.468 Weight last 48 hrs Weight 375 lb 14.21 oz Weight 369 lb 6.4 oz Weight 370 lb 13.08 oz Weight 362 lb Physical Exam Narrative: PHYSICAL EXAM: General: Morbidly obese, young female, lying in bed, sedated and intubated-opens eyes and follows commands HEENT:NCAT, PERRLA, EOMI Neck: Supple Lungs: Bilateral diffuse crackles Heart: s1/s2, RRR Abd: soft, NT, ND, BS + Normoactive Extremities: No edema, right forearm infiltrated 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 SKIN: Stage II ulcer dorsum of right hand LDA: # HD Cath : Placed 09/21/2022 #CVC: Right femoral line 09/08/2022 Urinary Catheter Management: Cha: Cath Placed During This Visit: yes Reason for Continuing Indwelling Catheter: Accurate Measurement of Urinary Output in Critically Ill Patients Urinary Catheter Date of Insertion: 09/08/22 Urinary Catheter Time of Insertion: 10:29 Data 09/22/22 14:01 09/22/22 14:01 Other Labs: Radiology Impressions Duplex Scan Upper Extremity Artery 09/08/22 20:22 IMPRESSION: 1. No evidence for major vessel occlusion or significant stenosis. 2. Other details discussed above. Renal Ultrasound 09/09/22 05:33 IMPRESSION: 1. No hydronephrosis of either kidney. 2. Technologist notes somewhat limited evaluation of the kidneys, due to patient condition and body habitus. 3. Other details discussed above. Chest CTA 09/13/22 10:26 IMPRESSION: 1. Very limited exam due to artifact from CT bore contact. 2. Nondiagnostic evaluation of the pulmonary arteries. 3. Complete atelectasis of both lower lobes and partial atelectasis of the left upper lobe. 4. Cardiac enlargement. 5. Enlarged main pulmonary artery suggests pulmonary hypertension. 6. Lexus hepatis and gastrohepatic ligament lymphadenopathy is partially imaged. Recommend follow-up abdomen pelvis CT. 7. Satisfactory position of lines and tubes. KUB X-Ray 09/20/22 08:46 IMPRESSION: 1. No acute process noted. 2. Enteric tube in place appearing to end in the body the stomach. Chest X-Ray 09/22/22 08:19 IMPRESSION: 1. Chest x-ray unchanged since the previous exam. 2. The right-sided IJ catheter has been removed since prior study. Laboratory Results WBC 11.4 10^3/uL (4.0-10.0) H 09/22/22 14:01 RBC 4.24 10^6/uL (4.1-5.3) 09/22/22 14:01 Hgb 11.9 g/dL (11.5-15.3) 09/22/22 14:01 Hct 37.6 % (37.0-47.0) 09/22/22 14:01 MCV 88.7 fl (81-99) 09/22/22 14:01 MCH 28.1 pg (28.0-34.0) 09/22/22 14:01 MCHC 31.6 g/dL (30.0-36.0) 09/22/22 14:01 RDW 13.4 % (12.1-15.1) 09/22/22 14:01 Plt Count 217 10^3/cmm (130-400) 09/22/22 14:01 MPV 9.9 fL (7.4-10.4) 09/22/22 14:01 Neut % (Auto) 68.2 % 09/22/22 14:01 Lymph % (Auto) 19.6 % 09/22/22 14:01 [place] % (Auto) 6.9 % 09/22/22 14:01 Eos % (Auto) 1.7 % 09/22/22 14:01 Baso % (Auto) 0.8 % 09/22/22 14:01 Neut # (Auto) 7.79 10^3/uL (1.8-7.7) H 09/22/22 14:01 Lymph # (Auto) 2.2 10^3/uL (0.8-4.8) 09/22/22 14:01 [place] # (Auto) 0.8 10^3/uL (0.2-0.9) 09/22/22 14:01 Eos # (Auto) 0.2 10^3/uL (0.0-0.8) 09/22/22 14:01 Baso # (Auto) 0.1 10^3/uL (0.0-0.1) 09/22/22 14:01 Nucleated RBC % (auto) 0 % 09/22/22 14:01 Nucleated RBCs # 0.0 /100WBC 09/22/22 14:01 PT 14.40 SECONDS (12.1-14.9) 09/22/22 01:24 INR 1.08 (0.8-1.2) 09/22/22 01:24 APTT 43.5 SECONDS (23.9-36.7) H 09/20/22 03:10 D-Dimer 3.78 ug/mIFEU (0-0.59) H 09/15/22 17:57 Specimen Type Arterial 09/22/22 15:02 Sample Site Radial, right 09/22/22 15:02 ABG pH 7.29 (7.35-7.45) L 09/22/22 15:02 ABG pCO2 47.9 mmHg (35-45) H 09/22/22 15:02 ABG pO2 88.4 mmHg (80.0-100.0) 09/22/22 15:02 ABG HCO3 22.8 mmol/L (22-26) 09/22/22 15:02 ABG O2 Saturation 96.4 09/22/22 15:02 ABG Base Excess -4.0 mmol/L (-2.0-2.0) L 09/22/22 15:02 [place] Test Pos 09/22/22 15:02 A-a O2 Gradient 17.4 mmHg (5-10) H 09/22/22 15:02 Hematocrit 38.8 % (37-47) 09/22/22 15:02 Hgb O2 Saturation 95.0 % (95-100) 09/22/22 15:02 Carboxyhemoglobin 1.1 %THgb (0.4-20.1) 09/22/22 15:02 Methemoglobin 0.4 % (0.4-1.5) 09/22/22 15:02 Total Hemoglobin 12.6 g/dL (12-16) 09/22/22 15:02 Sodium 140.0 mmol/L (131-143) 09/22/22 15:02 Potassium 3.3 mmol/L (3.5-5.0) L 09/22/22 15:02 Glucose 89.0 mg/dL (70-115) 09/22/22 15:02 Ionized Calcium 1.3 mmol/L (1.1-1.4) 09/22/22 15:02 O2 Delivery Device Vent 09/22/22 15:02 O2 Liters/Min 7.0 % 09/08/22 15:57 SIMV 18.0 09/20/22 04:00 FiO2 40.0 % 09/22/22 15:02 Tidal Volume 0.42 09/22/22 15:02 PEEP 8.0 cmH20 09/22/22 15:02 Medical Records Coder ID [place] 09/22/22 15:02 Sodium 136 mmol/L (136-145) 09/22/22 14:01 Potassium 3.2 mmol/L (3.5-5.1) L 09/22/22 14:01 Chloride 96 mmol/L (98-107) L 09/22/22 14:01 Carbon Dioxide 22 mmol/L (22-29) 09/22/22 14:01 Anion Gap 21.2 (5-19) H 09/22/22 14:01 BUN 83 mg/dL (6-20) H* 09/22/22 14:01 Creatinine 5.3 mg/dL (0.5-0.9) H 09/22/22 14:01 GFR Calculation 8.9 mL/min (90-130) L 09/22/22 14:01 Glucose 96 mg/dL (65-115) 09/22/22 14:01 POC Glucose 95 mg/dL (70-110) 09/22/22 20:14 Estimat Average Glucose 114 09/12/22 03:59 Hemoglobin A1c 5.6 % (4.0-6.0) 09/12/22 03:59 Calculated Osmolality 307 mOsm/kg (285-295) H 09/22/22 14:01 Lactic Acid 1.6 mmol/L (0.5-2.2) 09/08/22 09:06 Lactate 0.9 mmol/L (0.5-2.2) 09/22/22 01:24 Calcium 9.8 mg/dL (8.5-10.5) 09/22/22 14:01 Phosphorus 4.9 mg/dL (2.5-4.5) H 09/22/22 01:24 Magnesium 2.1 mg/dL (1.7-2.3) 09/22/22 01:24 Iron 46 ug/dL (37-145) 09/11/22 05:57 TIBC 271 mcg/dl 09/11/22 05:57 % Saturation 16.9 % (20-50) L 09/11/22 05:57 Unsat Iron Binding 225 ug/dL (112-347) 09/11/22 05:57 Total Bilirubin 0.5 mg/dL (0.15-1.2) 09/22/22 14:01 AST 32 U/L (0-32) 09/22/22 14:01 ALT 33 U/L (0-33) 09/22/22 14:01 Alkaline Phosphatase 53 U/L (35-105) 09/22/22 14:01 Creatine Kinase 225 U/L (26-192) H 09/10/22 03:30 CK-MB (CK-2) 14.9 ng/mL (0-5.34) H 09/10/22 03:30 CK-MB (CK-2) Rel Index 6.6 % (0.0-10.4) 09/10/22 03:30 Troponin T Gen 5 ng/L 162 ng/L (0-10) H* 09/22/22 09:00 Troponin T Baseline 120 ng/L (0-10) H* 09/21/22 10:15 Troponin T 120 Minute 130.9 ng/L (0-10) H 09/21/22 11:40 Delta Troponin T 10.9 ABS# (0-10) H* 09/21/22 11:40 Troponin T Hi Sens 6Hr 174.5 ng/L (0-10) H 09/21/22 16:16 Troponin T Hi Sens 6Hr Delta 54.5 ng/L (0-12) H* 09/21/22 16:16 C-Reactive Protein 9.7 mg/L (0.0-4.9) H 09/22/22 01:24 NT-Pro-B Natriuret Pep 1773 pg/mL (0-125) H 09/22/22 01:24 Total Protein 6.8 g/dL (6.6-8.7) 09/22/22 14:01 Albumin 4.0 g/dL (3.5-5.2) 09/22/22 14:01 Globulin 2.8 g/dL (1.3-4.6) 09/22/22 14:01 Triglycerides 313 mg/dL (0-150) H 09/12/22 03:59 Cholesterol 140 mg/dL (0-200) 09/12/22 03:59 LDL Cholesterol, Calc 49 mg/dL (50-129) L 09/12/22 03:59 Total VLDL Cholesterol 63 mg/dL (0-30) H 09/12/22 03:59 HDL Cholesterol 28 mg/dL (60-100) L 09/12/22 03:59 Cholesterol/HDL Ratio 5.00 mg/dL (0.0-4.40) H 09/12/22 03:59 Vitamin B12 514 pg/mL (232-1245) 09/11/22 05:57 Folate 8.9 ng/mL (4.8-37.3) 09/11/22 05:57 Procalcitonin 2.09 ng/mL (0-0.5) H 09/22/22 01:24 TSH 13.22 uIU/mL (0.27-4.20) H 09/22/22 14:01 Free T4 1.54 ng/dL (0.82-1.77) 09/22/22 14:01 Free T3 2.1 PG/ML (2.0-4.4) 09/22/22 14:01 Random Cortisol 2.67 ug/dL (2.47-19.5) 09/15/22 02:38 Urine Color Yellow (Yellow) 09/17/22 12:15 Urine Appearance Hazy (CLEAR) A 09/17/22 12:15 Urine pH 8 (5-7) H 09/17/22 12:15 Ur Specific [place] 1.010 (1.005-1.030) 09/17/22 12:15 Urine Protein Trace (Negative) 09/17/22 12:15 Urine Glucose (UA) Norm (Normal) 09/17/22 12:15 Urine Ketones Negative (Negative) 09/17/22 12:15 Urine Blood 3+ (Negative) H 09/17/22 12:15 Urine Nitrate Negative (Negative) 09/17/22 12:15 Urine Bilirubin Neg (Negative) 09/17/22 12:15 Prot Sulfosalicylic Acd Positive (Negative) 09/17/22 12:15 Urine Urobilinogen Norm mg/dL (Negative) 09/17/22 12:15 Ur Leukocyte Esterase 2+ (Negative) H 09/17/22 12:15 Urine RBC 25-40 /hpf (0-2) H 09/17/22 12:15 Urine WBC 55-80 /hpf (0-5) H 09/17/22 12:15 Ur Squamous Epith Cells 25-40 /hpf (0-5) H 09/17/22 12:15 Ur Transition Epith Cell 0-4 /hpf 09/10/22 12:30 Amorphous Sediment Not Reportable 09/17/22 12:15 Urine Bacteria 2+ /hpf (NONE) H 09/17/22 12:15 Urine Yeast 2+ /hpf H 09/17/22 12:15 Ur Random Sodium 93 mmol/L 09/09/22 01:10 Urine Creatinine 51 mg/dL (28-217) 09/09/22 01:10 Nasal Influ A H1 2009 PCR Not detected (NOT DETECT) 09/08/22 08:45 Bronch Specimen Source Left lower lobe 09/13/22 18:40 Bronchial Fluid Color Red 09/13/22 18:40 Bronchial Fluid Appearance Bloody (CLEAR) 09/13/22 18:40 Bronchial Fluid WBC 1361 /uL 09/13/22 18:40 Bronchial Fluid RBC 900 10^3/uL 09/13/22 18:40 Bronch Cells Counted 200 09/13/22 18:40 Bronchial Neutrophils 72.00 % (0.9-2.3) H 09/13/22 18:40 Bronchial Lymphocytes 26.00 % (10.71-12.91) H 09/13/22 18:40 Bronchial Eosinophils 1.00 % (0.13-0.25) H 09/13/22 18:40 Bronchial Macrophages 1.00 % (83.6-86.8) L 09/13/22 18:40 Bronchial Diff Comment Yes 09/13/22 18:40 Vancomycin Trough 19.0 ug/mL (10-15) H 09/22/22 01:24 Random Vancomycin 19.5 ug/mL (20.0-40.0) L 09/19/22 03:38 Adenovirus (PCR) Not detected (NOT DETECT) 09/08/22 08:45 C. pneumoniae DNA (PCR) Not detected (NOT DETECT) 09/08/22 08:45 Coronavirus 229E (PCR) Not detected (NOT DETECT) 09/08/22 08:45 Hepatitis A IgM Ab Non-reactive (Nonreactive) 09/11/22 05:57 Hep Bs Antigen Non-reactive (Nonreactive) 09/11/22 05:57 Hep Bs Antibody 12.8 (11.5-1000) 09/11/22 05:57 Hep B Core Total Ab Non-reactive (Nonreactive) 09/11/22 05:57 Hepatitis C Antibody Non-reactive (Nonreactive) 09/11/22 05:57 Human Metapneumovir PCR Not detected (NOT DETECT) 09/08/22 08:45 Influenza A (H1) PCR Not detected (NOT DETECT) 09/08/22 08:45 Influenza A (H3) PCR Not detected (NOT DETECT) 09/08/22 08:45 Influenza Type A (PCR) Not detected (NOT DETECT) 09/08/22 08:45 Influenza Type B (PCR) Not detected (NOT DETECT) 09/08/22 08:45 M. pneumoniae (PCR) Not detected (NOT DETECT) 09/08/22 08:45 Parainfluenza 1 (PCR) Not detected (NOT DETECT) 09/08/22 08:45 Parainfluenza 2 (PCR) Not detected (NOT DETECT) 09/08/22 08:45 Parainfluenza 3 (PCR) Not detected (NOT DETECT) 09/08/22 08:45 Parainfluenza 4 (PCR) Not detected (NOT DETECT) 09/08/22 08:45 RSV Type A (PCR) Not detected (NOT DETECT) 09/08/22 08:45 RSV Type B (PCR) Not detected (NOT DETECT) 09/08/22 08:45 Entero/Rhino (PCR) Not detected (NOT DETECT) 09/08/22 08:45 SARS-CoV-2 (PCR) Not detected (NOT DETECT) 09/08/22 08:45 Micro: Microbiology 09/16/22 11:07 Blood Culture - Final Blood NO GROWTH AFTER 5 DAYS A&P Assessment and plan (1) Acute respiratory failure with hypoxia and hypercapnia: (2) Obstructive sleep apnea: (3) Pneumonia: (4) Flash pulmonary edema: (5) Acute kidney injury: (6) ARDS (adult respiratory distress syndrome): (7) Open wound of right hand: (8) NSTEMI (non-ST elevated myocardial infarction): (9) Duodenal ulcer: (10) Atrial fibrillation with RVR: Plan ASSESSMENT/PLAN:Overall: 42-year-old young female with past medical history of hypertension-noncompliant with her medications-initially comes with hypertensive emergency with flash pulmonary edema-treated with nicardipine drip-becomes hypotensive-started on pressors and antibiotics for presumed sepsis. She went into respiratory failure requiring mechanical ventilation support. She also developed BRIDGETTE requiring temporary hemodialysis. NEURO: #Sedation -Discontinued fentanyl and Versed today-patient is still drowsy -We will start on Precedex PULM: #Acute hypoxic and hypercapnic respiratory failure-probably there is a chronic component given her morbid obesity -Acute component secondary to flash pulmonary edema due to hypertensive emergency - -FiO2 requirement down to 35% today morning; PEEP down to 8-placed on SIMV- patient did not generate adequate spontaneous breaths-ABG showed respiratory acidosis -We will put her back on CMV can continue with trial tomorrow morning -We will continue to taper down FiO2/PEEP requirements -We will continue to monitor with ABG -She underwent CTA for increasing oxygen requirements-there was a lot of motion artifact and CT was nondiagnostic for pulmonary arteries. There is moderate cardiac enlargement and enlarged main pulmonary artery suggesting pulmonary hypertension. There was partial atelectasis of left upper lobe and complete atelectasis of both lower lobes. -We have to stop for IV heparin due to coffee-ground NG secretions as well as r ectal secretions-today EGD showed shallow bleeding ulcers -She underwent bronchoscopic evaluation for airways 09/13/2022-there were thick mucus secretions in bilateral lower lobes which were suctioned-BAL neutrophils predominant-final cultures negative -She is on scheduled nebulization with DuoNeb as well as Pulmicort -Currently she is on Bumex 2 Mg Q8 over follow-up fluid overload-currently on hemodialysis as per nephrology team -We will continue with awakening and breathing trials CVS: #Hypertensive emergency-treated with nicardipine [id number] circulatory shock-likely secondary to possible nicotine toxicity or demand ischemia due to underlying? Sepsis #ST depressions A-fib RVR-suspect NSTEMI-?? Demand ischemia due to shallow bleeding ulcers -Currently requiring intermittently requiring Levophed -on amiodarone drip plan is to switch to amiodarone -Echocardiogram during admission showed normal LV size, systolic function with EF 60%. Grade 1 diastolic dysfunction. -Elevated BNP -Currently on Bumex 2 Mg every 8 hours and fluid removal through temporary hemodialysis-improving urine output -Started on midodrine 10 Mg p.o. 3 times daily -Continue close hemodynamic and cardiac monitoring GI: #Diet: N.p.o. due to GI bleed #GI prophylaxis: PPI every 12 hours and sucralfate #LFTs: elevated - monitor RENAL: #BRIDGETTE-most likely prerenal secondary to ischemic ATN due to hypotension/? Contrast-induced nephropathy -Currently on daily hemodialysis as per renal team to achieve net negative fluid balance -Electrolytes are acceptable but her BUN/creatinine kind of plateaued and- improvement in her urine output -Today nephrology planning to do ultrafiltration for elevated BUN and creatinine -Currently on Bumex 2 Mg 3 times daily HEM: #GI bleed -EGD today showed shallow duodenal ulcers and received epinephrine injection -PPI every 12 hours and sucralfate -H&H stable -We will monitor H&H -Held her IV heparin -Monitor H&H #Leukocytosis-improving #H&H stable #Normal platelets ENDO: #Significantly elevated TSH-suspect hypothyroidism-patient on levothyroxine 50 mcg q. p.o. daily-she may need to follow-up as outpatient #Normal blood sugars #Possible underlying adrenal insufficiency-held steroids due to duodenal ulcers ID: #Presumably met sepsis criteria #Low-grade temperature spikes- #Stage II ulcer on dorsum of hand-surgery to evaluate -Pulmonary infiltrates on imaging-with leukocytosis-and hypotension-there was a suspicion if it is all septic shock secondary to pneumonia; -However infiltrates can be explained with fluid overload, hypotension secondary to Cardene drip -Patient procalcitonin is low -Repeat blood cultures sent today 09/16/22 -06/28 bottle Staph epidermidis-likely contaminant -Back on vancomycin and Zosyn -BAL neutrophil predominance-final cultures negative Code Status: Full code Disposition: ICU Critically ill: Yes MD discussed with: Hospitalist, RN, RT taking care of the patient ICU CHECKLIST: Problem list updated Verbal orders reviewed and signed Analgesia: Fentanyl Glycemic Control: N/A Nutrition: npo Restraint Renewal (within 24 hrs): Yes Ulcer Prophylaxis: PPI Chemical Thromboprophylaxis: Prophylaxis: na-GI bleed Mechanical Thromboprophylaxis: SCDs Need for Central line: Yes for multiple medications Need for Cha catheter: Yes for urine output monitoring Attestations 2 Medical Necessity Statement*: Acute hypoxic/hypercapnic respiratory failure secondary to fluid overload due to hypertensive emergency-requiring mechanical ventilation; will continue to monitor at least 48 hours in ICU Critical Care Time: This patient has a high probability of? clinically sig nificant, sudden o r life threatening deterioration of the patient's (jonathan rological/pulmonar y/cardiac/renal/ID /endocrine) system s required my full , direct attention , the highest leve l of physician pre paredness for urge nt intervention an d personal managem ent.? I managed/meade pervised life or o rgan supporting in terventions that r equired frequent p hysician assessmen t.? I devoted my f ull attention in t he ICU to the dire ct care of this pa tient for the kareen od of time indicat ed above.? Time I spent with family or surrogate(s) is included only if the patient was in capable of providi ng necessary infor mation or particip ating in decision making.? This annie e includes the [facility] services pr ovided: Telemetry review Mechanical Ventilation Hemod ynamic interpretat ion, assessment an d management Revie w and interpretati on of CXR Review a nd interpretation of lab values Revi ew and interpretat ion of microbiolog ic data and cultur e results Review o f medications and administration Rev iew and interpreta tion of Nutrition requirements and m anagement Discussi on of management w ith other consulta nts and services C linical update to family members [x ] Data and vital s ign review and int erpretation [x] Segun humphrey assessment, examination and in tervention [x] Doc umentation [x] Med ication orders and management Time spent for teaching as well as perfor aydin procedures ar e billed separatel y and is not inclu ded in this note ? Critical Care Annie e (min): 64 Procedures Arterial Line Size (Gauge): 20 Coding Level of Care Code Critical Care >/= 30 minutes Diagnoses Acute respiratory failure with hypoxia and hypercapnia J96.01; J96.02 Obstructive sleep apnea G47.33 Pneumonia J18.9 Flash pulmonary edema J81.0 Acute kidney injury N17.9 ARDS (adult respiratory distress syndrome) J80 Open wound of right hand S61.401A NSTEMI (non-ST elevated myocardial infarction) I21.4 Duodenal ulcer K26.9 Atrial fibrillation with RVR I48.91 Time Spent (min) 64
[2022-09-22 23:49] LABS: Glucose Point of Care 106 mg/dL (70-110)
[2022-09-23] VITALS (48 sets, daily range): BP systolic 91–182; BP diastolic 59–126; PULSE 70–130; RESP 22–33; TEMP 36.7–37.9; O2SAT 91–99
[2022-09-23] MEDS: ipratropium-albuterol 3 mL Neb INHALATION ×7 (00:42→23:15)
[2022-09-23] MEDS: piperacillin-tazobactam 3.375 GM in sodium chloride 0.9% (plus) 50 ML IV ×2 (01:06→12:28)
[2022-09-23] MEDS: chlorhexidine gluconate 4% Btl 118 mL 1 APPLIC TOPICAL (01:07)
[2022-09-23] MEDS: bumetanide 0.25 mg/mL SDV 10 mL 2 MG IVP ×2 (02:00→09:13)
[2022-09-23] MEDS: dexmedetomidine 400 MCG in sodium chloride 0.9% (100 ml) 100 ML 13.07 MCG IV (02:02)
[2022-09-23 04:48] LABS: Glucose Point of Care 107 mg/dL (70-110)
[2022-09-23] MEDS: sucralfate 1 gm Tablet PO ×4 (04:59→22:46)
[2022-09-23] MEDS: silver sulfadiazine cream 1% 50 gm 1 APPLIC TOPICAL (05:06)
[2022-09-23 05:13] LABS: Basophils # 0.1 10^3/uL (0.0-0.1); Eosinophils # 0.2 10^3/uL (0.0-0.8); Eosinophils % 2.2 %; Hematocrit 39.9 % (37.0-47.0); Hemoglobin 12.7 g/dL (11.5-15.3); Lymphocytes # 1.6 10^3/uL (0.8-4.8); Lymphocytes % 15.8 %; Mean Corpuscular HGB Conc 31.8 g/dL (30.0-36.0); Mean Corpuscular Hemoglobin 27.7 pg (28.0-34.0); Mean Corpuscular Volume 87.1 fl (81-99); Mean Platelet Volume 9.9 fL (7.4-10.4); Monocytes # 0.7 10^3/uL (0.2-0.9); Monocytes % 6.9 %; Neutrophils # 6.99 10^3/uL (1.8-7.7); Neutrophils % 70.4 %; Nucleated Red Blood Cells % 0.2 %; Platelet Count 225 10^3/cmm (130-400); Red Blood Count 4.58 10^6/uL (4.1-5.3); Red Cell Distribution Width 13.3 % (12.1-15.1); White Blood Count 9.9 10^3/uL (4.0-10.0)
[2022-09-23 05:19] LABS: ABG PCO2 35.7 mmHg (35-45); ABG PH Result 7.41 (7.35-7.45); Arterial Blood Gas Hematocrit 40.2 % (37-47); Base Excess ABG -1.5 mmol/L (-2.0-2.0); Blood Gas Allen Test Pos; Blood Gas Sample Site Radial, left; Blood Gas Sample Type Arterial; HCO3 ABG 22.6 mmol/L (22-26); Oxygen Device VENT; PO2 ABG 71.2 mmHg (80.0-100.0)
[2022-09-23 05:22] LABS: Blood Gas Tidal Volume 0.42
[2022-09-23 05:43] LABS: NT Pro B Type Natriuretic Pept 2791 pg/mL (0-125); Procalcitonin 2.85 ng/mL (0-0.5)
[2022-09-23 05:54] LABS: Alkaline Phosphatase 69 U/L (35-105); Calcium 9.9 mg/dL (8.5-10.5); Glucose 99 mg/dL (65-115); Magnesium 1.9 mg/dL (1.7-2.3); Osmolality Calculated 291 mOsm/kg (285-295); Phosphorus 3.1 mg/dL (2.5-4.5); Total Bilirubin 0.6 mg/dL (0.15-1.2)
--- NOTE | 2022-09-23 06:00 | XRR_ITS ---
PROCEDURE INFORMATION: Exam: XR Chest Exam date and time: 09/23/2022 6:57 AM Age: 42 years old Clinical indication: Device placement; Ett placement (vent status); Additional info: Intubated TECHNIQUE: Imaging protocol: Radiologic exam of the chest. Views: 1 view. COMPARISON: CR XR chest 1V portable [id number] 09/22/2022 7:41 AM FINDINGS: Tubes, catheters and devices: Endotracheal tube is in satisfactory position. Feeding tube is in satisfactory position. Left IJ approach tunneled dialysis catheter is in satisfactory position, with distal tip in the at the level of the SVC/RA junction. Lungs: Persistent increased interstitial markings and bilateral airspace opacities, left greater than right. Possible trace left pleural effusion. No pneumothorax. Pleural spaces: See Lungs finding. Heart/Mediastinum: Stable cardiomediastinal silhouette. Bones/joints: Unremarkable. XR/XR chest 1V portable [id number] IMPRESSION: Persistent bilateral airspace opacities, left greater than right. Possible trace left pleural effusion.
--- NOTE | 2022-09-23 06:00 | USCV_ITS ---
September Age: 42 Gender: F : 1980 Exam Date: 09/23/2022 17:04 Ordering Phys: Zeferino Estrada MD Technologist: RICKY Exam Location: [facility] [place] Indication: afib BP: / HR: 92 Rhythm: Sinus Technical Quality: TDS MEASUREMENTS (Male / Female) Normal Values 2D ECHO LV Diastolic Diameter PLAX 5.3 cm 4.2 - 5.9 / 3.9 - 5.3 cm LV Systolic Diameter PLAX 3.9 cm IVS Diastolic Thickness 1.1 cm 0.6 - 1.0 / 0.6 - 0.9 cm IVS Systolic Thickness 1.6 cm LVPW Diastolic Thickness 1.0 cm 0.6 - 1.0 / 0.6 - 0.9 cm LVPW Systolic Thickness 1.6 cm LV Ejection Fraction 2D Teich 50.9 % DOPPLER TR Peak Velocity 143.7 cm/s TR Peak Gradient 8.3 mmHg Right Atrial Pressure 3.0 mmHg Pulmonary Artery Systolic Pressu 11.3 mmHg FINDINGS Left Ventricle TDS. AF with RVR. EF appears to be low normal estimated 50%. Unable to comment on anything else. Right Ventricle Right Atrium Left Atrium Mitral Valve Aortic Valve Tricuspid Valve Pulmonic Valve Pericardium Aorta IVC CONCLUSIONS TDS. AF with RVR. EF appears to be low normal estimated 50%. Unable to comment on anything else. Demetrius Diaz MD (Electronically Signed) Final Date: 24 September 2022 17:25 S
[2022-09-23 06:40] LABS: Alanine Aminotransferase 45 U/L (0-33); Aspartate Amino Transferase 52 U/L (0-32); Blood Urea Nitrogen 50 mg/dL (6-20); Carbon Dioxide 20 mmol/L (22-29); Chloride 85 mmol/L (98-107); Glomerular Filtration Rate 13.4 mL/min (90-130); Sodium 123 mmol/L (136-145)
[2022-09-23 06:45] LABS: C Reactive Protein 17.4 mg/L (0.0-4.9)
[2022-09-23] MEDS: dexmedetomidine 400 MCG in sodium chloride 0.9% (100 ml) 100 ML 17.43 MCG IV (07:41)
[2022-09-23] MEDS: budesonide 0.5 mg/2 mL Neb INHALATION ×2 (07:50→19:54)
[2022-09-23] MEDS: docusate sodium 10 mg/mL (5ml) Liq 50 MG PO (08:35)
[2022-09-23] MEDS: pantoprazole 40 mg SDV IVP ×2 (08:36→17:10)
[2022-09-23] MEDS: levothyroxine 100 mcg SDV 50 MCG IVP (08:36)
[2022-09-23] MEDS: amiodarone 200 mg Tablet 400 MG PO ×2 (08:37→17:10)
[2022-09-23] MEDS: metoprolol tartrate 25 mg Tablet PO ×2 (08:38→13:00)
[2022-09-23] MEDS: midodrine 5 mg TABLET 10 MG PO ×2 (08:38→15:01)
[2022-09-23] MEDS: lidocaine 1% 5 ML in potassium chloride premix 100 ML 26.25 ML IV (09:38)
--- NOTE | 2022-09-23 09:43 | PM.PN ---
Subjective Subjective: Remains on ventilator and on 40% FiO2 Vitals/I&O/Wt Last Vital Signs Temp 99.9 F H 09/23/22 04:00 Pulse 128 H 09/23/22 08:00 Resp 22 H 09/23/22 07:53 BP 91/62 09/23/22 08:00 Pulse Ox 96 09/23/22 08:00 O2 Del Method 09/23/22 06:00 O2 Flow Rate 6 09/08/22 09:00 FiO2 40 09/23/22 08:00 09/22/22 09/23/22 09/23/22 22:59 06:59 14:59 Intake Total 1736.469 / 2100.468 299.529 / 2399.997 46.77 / 46.77 Output Total 1317 / 1317 275 / 1592 Balance 419.469 / 783.468 24.529 / 807.997 46.77 / 46.77 Weight last 48 hrs Weight 162.658 kg Weight 170.5 kg Weight 167.557 kg Weight 168.2 kg Physical Exam Narrative: Patient remains intubated Urinary Catheter Management: Cha: Cath Placed During This Visit: yes, but has since been removed by the nurse Reason for Continuing Indwelling Catheter: Accurate Measurement of Urinary Output in Critically Ill Patients Urinary Catheter Date of Insertion: 09/08/22 Urinary Catheter Time of Insertion: 10:29 Date Urinary Catheter Removed: 09/23/22 Time Urinary Catheter Discontinued: 09:27 Data 09/23/22 04:35 09/23/22 04:35 A&P Assessment and plan (1) Acute kidney injury: Plan 1. Acute kidney injury. Different includes contrast nephropathy, sepsis, acute interstitial nephritis, hemodynamic. . Due to high O2 requirement and worsening renal function patient was started on HD. Would like to keep her on a negative fluid balance, Eval daily for hD needs. baseline creatinine was normal prior to admission at 0.5. Status post permacath placement due to no improvement in renal function and anticipation of requiring dialysis for few weeks/months -Status post HD yesterday , patient likely be intravascularly dry , hold bumex 2. Volume overload:HD as above , 3. Primary respiratory acidosis, hypercapneic respiratory failure on ventilator, plans to extubate today 4. sepsis with pneumonia 6. HTN 7. Hyponatremia : Na dropped from 136 to 123 , will repeat BMP to check accuracy , check U na , cl , osmolality Attestations Medical Necessity Statement*: Per primary Procedures Arterial Line Size (Gauge): 20 Coding Level of Care Code Acute Code for Chg Fwd Diagnoses Acute kidney injury N17.9
[2022-09-23] MEDS: sodium chloride 0.9% 1,000 ML 500 ML IV (10:24)
[2022-09-23] MEDS: digoxin 250 mcg/ml INJ 2 mL IVP (12:28)
--- NOTE | 2022-09-23 12:48 | ECG_ITS ---
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1980 Requested By: Derek Rodríguez Order Number: [id number] Reading MD: Demetrius Diaz Measurements Intervals [place] Rate: 127 P: 0 NE: 0 QRS: 14 QRSD: 104 T: 163 QT: 280 QTc: 407 Interpretive Statements ATRIAL FLUTTER/TACHYCARDIA WITH RAPID VENTRICULAR RESPONSE ST DEVIATION AND MODERATE T-WAVE ABNORMALITY, CONSIDER LATERAL ISCHEMIA [-0.1+ mV T-WAVE IN I/aVL/V5/V6] Compared to ECG 09/21/2022 17:14:31 Intraventricular conduction delay no longer present T-wave abnormality still present Possible ischemia still present Electronically Signed On 09-24-2022 19:02:03 CDT by Demetrius Diaz [email or web address]/store/[id number]
--- NOTE | 2022-09-23 13:09 | PM.PN ---
Subjective Subjective: Intubated, sedated, family at bedside. Vitals/I&O/Wt Last Vital Signs Temp 99.6 F 09/24/22 06:00 Pulse 92 09/24/22 11:35 Resp 19 H 09/24/22 11:38 BP 153/105 09/24/22 10:00 Pulse Ox 100 09/24/22 11:38 O2 Del Method 09/24/22 11:35 O2 Flow Rate 6 09/08/22 09:00 FiO2 40 09/24/22 11:38 09/23/22 09/24/22 09/24/22 22:59 06:59 14:59 Intake Total 757.280 / 2279.845 259.159 / 2539.004 393.75 / 393.75 Output Total 675 / 675 800 / 1475 Balance 82.280 / 1604.845 -540.841 / 1064.004 393.75 / 393.75 Weight last 48 hrs Weight 359 lb 3.2 oz Weight 399 lb 0.587 oz Weight 358 lb 9.6 oz Weight 375 lb 14.21 oz Physical Exam Narrative: Morbidly obese Resp: OTHER: Intubated Cardio: OTHER: Tachy Extremity: NARRATIVE EXTREMITY EXAM: Mottled, foot cyanosis Urinary Catheter Management: Cha: Cath Placed During This Visit: yes, but has since been removed by the nurse Reason for Continuing Indwelling Catheter: Accurate Measurement of Urinary Output in Critically Ill Patients Urinary Catheter Date of Insertion: 09/23/22 Urinary Catheter Time of Insertion: 09:00 Date Urinary Catheter Removed: 09/23/22 Time Urinary Catheter Discontinued: 09:27 Data 09/24/22 03:55 09/24/22 03:55 Micro: Microbiology 09/24/22 10:30 Blood Culture - Preliminary Blood SPECIMEN COLLECTED 09/24/22 10:20 Blood Culture - Preliminary Blood SPECIMEN COLLECTED A&P Assessment and plan (1) Tachycardia, unspecified: (2) Type 2 AMI (acute myocardial infarction): Plan Due to tachycardiac increase metoprolol. One time digoxin order to see how she responds. Foot warmers. If needed, LE arterial duplex. Attestations Medical Necessity Statement*: 2 MN Procedures Arterial Line Size (Gauge): 20 Coding Level of Care Code 18753 Diagnoses Tachycardia, unspecified R00.0 Type 2 AMI (acute myocardial infarction) I21.A1 Time Spent (min) 30
[2022-09-23 13:37] LABS: Anion Gap 19.6 (5-19); Blood Urea Nitrogen 50 mg/dL (6-20); Calcium 9.7 mg/dL (8.5-10.5); Carbon Dioxide 21 mmol/L (22-29); Chloride 97 mmol/L (98-107); Glomerular Filtration Rate 12.3 mL/min (90-130); Glucose 138 mg/dL (65-115); Osmolality Calculated 292 mOsm/kg (285-295); Potassium 4.6 mmol/L (3.5-5.1); Sodium 133 mmol/L (136-145)
--- NOTE | 2022-09-23 14:30 | PC.NURSE ---
Patient tachycardiac, called Dr. Rodríguez received orders to start fentanyl gtt at 50mcgs. Not to go above 50mcgs. If pulse remains elevated currently at 126 BPM, then received orders for 10mg cardizem IVP once.
[2022-09-23] MEDS: dilTIAZem 5 mg/mL SDV 5 mL 10 MG IVP (15:01)
[2022-09-23 15:56] LABS: Anion Gap 19.8 (5-19); Blood Urea Nitrogen 51 mg/dL (6-20); Calcium 9.6 mg/dL (8.5-10.5); Carbon Dioxide 21 mmol/L (22-29); Chloride 97 mmol/L (98-107); Glomerular Filtration Rate 12.6 mL/min (90-130); Glucose 131 mg/dL (65-115); Osmolality Calculated 293 mOsm/kg (285-295); Potassium 3.8 mmol/L (3.5-5.1); Sodium 134 mmol/L (136-145)
--- NOTE | 2022-09-23 16:11 | ECG_ITS ---
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1980 Requested By: Derek Rodríguez Order Number: [id number] Reading MD: Demetrius Diaz Measurements Intervals [place] Rate: 89 P: 0 UT: 0 QRS: 3 QRSD: 108 T: 194 QT: 388 QTc: 474 Interpretive Statements ATRIAL FLUTTER/TACHYCARDIA ST DEVIATION AND MODERATE T-WAVE ABNORMALITY, CONSIDER LATERAL ISCHEMIA [-0.1+ mV T-WAVE IN I/aVL/V5/V6] ST DEVIATION AND MODERATE T-WAVE ABNORMALITY, CONSIDER INFERIOR ISCHEMIA [-0.1+ mV T-WAVE IN II/aVF] Compared to ECG 09/23/2022 12:55:19 No significant changes Electronically Signed On 09-24-2022 19:01:06 CDT by Demetrius Diaz [email or web address]/[id number] f
[2022-09-23 16:23] LABS: Glucose Point of Care 137 mg/dL (70-110)
--- NOTE | 2022-09-23 18:17 | P.PN_ITS ---
Subjective Subjective: Hospital course, labs appreciated. Today morning on examination patient is on ventilator with FiO2 of 40%, tidal volume of 420, PEEP of 8. Patient was placed on SIMV for a short while. Patient tolerated SIMV for 3 hours and was turned back to full support as she was overbreathing the vent and became little restless. On review it seems patient has remained tachycardic even though she is on amio darone drip of 0.5. She is also on Precedex of 0.6 which was titrated up and down during the day. Patient did have dialysis yesterday. Overall over 16 L negative. In last 24 hours Tmax of in last 24 hours afebrile. Medications: Reviewed: Yes Vitals/I&O/Wt Last Vital Signs Temp 100.3 F H 09/23/22 16:19 Pulse 91 09/23/22 18:00 Resp 22 H 09/23/22 17:47 BP 166/113 09/23/22 18:00 Pulse Ox 96 09/23/22 18:00 O2 Del Method 09/23/22 15:01 O2 Flow Rate 6 09/08/22 09:00 FiO2 40 09/23/22 17:47 09/23/22 09/23/22 09/23/22 06:59 14:59 22:59 Intake Total 299.529 / 2399.997 1522.565 / 1522.565 500.675 / 2023.240 Output Total 275 / 1592 675 / 675 Balance 24.529 / 300.620 7649.565 / 1522.565 -174.325 / 1348.240 Weight last 48 hrs Weight 181 kg Weight 162.658 kg Weight 170.5 kg Weight 167.557 kg Physical Exam Narrative: Intubated sedated on mechanical ventilation. Well sedated today Const: COMMON NORMALS: patient oriented x3 HENMT: COMMON NORMALS: normocephalic, atraumatic and hearing grossly normal bilaterally HEAD & SCALP: normocephalic and atraumatic Resp: COMMON NORMALS: clear to auscultation bilaterally AUSCULTATION: clear to auscultation bilaterally OTHER: Diminished air entry bilaterally mostly in the left lower lobe Cardio: COMMON NORMALS: regular rate, regular rhythm, S1 normal heart sound present, S2 normal heart sound present, No gallops present (Cardio), No murmurs present (Cardio), No rub (Cardio) and Peripheral pulses 2+ throughout RATE: regular rate RHYTHM: regular rhythm HEART SOUNDS: S1 normal heart sound present and S2 normal heart sound present PERIPHERAL PULSES: Peripheral pulses 2+ throughout GI: COMMON NORMALS: Normal to inspection, nondistended, normoactive bowel sounds present, Soft to palpation, non-tender, No hepatosplenomegaly present and no masses AUSCULTATION: Yes normoactive bowel sounds PALPATION: Yes Soft to palpation and Yes No hepatosplenomegaly present RECTAL EXAM: deferred Extremity: COMMON NORMALS: no clubbing, cyanosis or edema and no pedal edema Neuro: COMMON NORMALS: patient oriented x3 Skin: OTHER: Blister present in right dorsum of the hand secondary to infiltration earlier in the admission which has popped now. Urinary Catheter Management: Cha: Cath Placed During This Visit: yes, but has since been removed by the nurse Reason for Continuing Indwelling Catheter: Accurate Measurement of Urinary Output in Critically Ill Patients Urinary Catheter Date of Insertion: 09/23/22 Urinary Catheter Time of Insertion: 09:00 Date Urinary Catheter Removed: 09/23/22 Time Urinary Catheter Discontinued: 09:27 Data 09/23/22 04:35 09/23/22 15:17 A&P Assessment and plan (1) ARDS (adult respiratory distress syndrome): (2) Shock: (3) Acute respiratory failure with hypoxia and hypercapnia: (4) Obstructive sleep apnea: (5) CHF (congestive heart failure): Qualifiers: Heart failure type: diastolic Heart failure chronicity: acute on chronic Qualified Code(s): I50.33 - Acute on chronic diastolic (congestive) heart failure (6) Dialysis patient: (7) Acute kidney injury: (8) S/P bronchoscopy with bronchoalveolar lavage: On 09/13. Encountered high mucus in left lower lobe. Follow cultures. Patient desaturated during procedures to high 70s and low 80s but otherwise tolerated procedure well. (9) Pneumonia: (10) Sepsis: (11) Flash pulmonary edema: (12) Hypertensive emergency: (13) Fever: (14) Ventilator dependent: (15) Open wound of right hand: (16) GI bleed: (17) Atrial fibrillation with RVR: (18) Duodenal ulcer: (19) NSTEMI (non-ST elevated myocardial infarction): (20) Essential hypertension: (21) Goals of care, counseling/discussion: Plan 42 year old female with known past medical history of hypertension noncompliant with antihypertensive medication, morbid obesity, was accepted as a direct transfer, she was initially admitted for the management of substernal chest pain, associated with acute onset of worsening shortness of breath. Assessment: ARDS: Hypoxic and hypercapnic respiratory failure: Currently intubated. Most likely in setting of decompensated congestive heart failure in setting of hypertensive emergency and acute kidney dysfunction in setting of obstructive sleep apnea and pneumonia. Wean ventilator setting as possible. We will continue to do daily sedation vacation and weaning trials. Patient tolerated SIMV for few hours today. We will plan for SIMV and pressure support again in a.m. tomorrow. Bumex as needed. Maintain negative balance. Overall more than 16 L negative. We will hold off on daily dialysis for now. Patient seems slightly dry today. Will give bolus of 1 L of fluid today and follow-up. Fluid restriction as possible. Pulmicort twice daily, DuoNebs every 4 hourly. If patient remains tachycardic we will switch to ipratropium and Xopenex. Appreciate pulmonology recommendations. Echocardiogram done during hospitalization showed an EF of 60% grade 1 diastolic dysfunction. Coag negative bacteremia/Staph epidermidis bacteremia: Last blood cultures showed 1 out of 4 blood cultures positive. Most likely contaminant. Repeat blood cultures so far negative. For now continue with vancomycin and Zosyn. We will plan to finish 7 to 10-day course of antibiotics and discontinue again to monitor. Fever: Continue to monitor. Could be secondary to atelectasis versus possibility of ulcer secondary to thrombophlebitis on right arm. Wound care with Hydrofera Blue and OPTi foam. Antibiotic as above. A-fib with RVR: Repeat EKG. Most likely in setting of mild dehydration along with pain as patient is not on any sedating medications. Increase amiodarone to 1. Plan switch amiodarone to oral 400 mg BID if HR remains stable. Increase metoprolol 50 mg BID. Can added Cardizem low dose oral as well if HR elevated. Restart on fentanyl at 50 for now. NSTEMI: Most likely type II. Heparin stopped recently because of GI bleed. Continue to monitor. Cardiology recommendations appreciated. -Cardiac echo ordered, however patient's mother declines for now. Anemia: Secondary to GI bleed: Appreciate surgical recommendations. Duodenal ulcer managed through epinephrine. Continue Protonix twice daily, Carafate every 6. Monitor hemoglobin daily for now. Hemoglobin remained stable for next 48 hours we will plan to start on anticoagulation given A-fib with RVR. BRIDGETTE requiring hemodialysis: Post permacath placement. Had uremia yesterday which resolved. He does have hyponatremia and left abnormalities today. Getting IV fluids. Repeat BMP in evening. Appreciate nephrology recommendations. Dialysis as needed. Overall 16 L negative. Bumex 2 mg every 8 hourly as needed for now. Sedation: Fentanyl, Precedex Glycemic control: Hypoglycemia protocol Nutrition: Start tube feeds today. CODE STATUS: Discussed in detail with patient mother and who is the DPOA at bedside. Patient is full code. We discussed need for dialysis for quick improvement. Family verbalized understanding and are agreeable. PUD prophylaxis: Protonix DVT prophylaxis: SCDs, Discharge planning: Likely will require LTAC placement given prolonged intubation. We will plan for possible extubation depending on clinical picture within next 48 hours. Continue with care at ICU 09/23: Care discussed in detail with patient's mother at bedside. We discussed regarding recent GI bleed, A-fib with RVR, improving ventilator settings StoCare becoming complicated by A-fib with RVR, GI bleed with anemia requiring transfusion, BRIDGETTE requiring dialysis and possible need of anticoagulation for o ngoing AF with RVR for stroke prevention. All the questions were answered. Patient remains critically sick Attestations Medical Necessity Statement*: Requires further hospitalization for management of ARDS, severe sepsis, atrial fibrillation with RVR, acute GI bleed as patient remains ventilator dependent, BRIDGETTE with dialysis dependent Procedures Arterial Line Size (Gauge): 20 Coding Level of Care Code Critical Care >/= 30 minutes Critical care time (in minutes): 110 The high probability of a clinically significant, sudden or life threatening deterioration, as referenced in this documentation, required my full and direct attention, intervention and personal management. The critical care time shown is in addition to time spent performing any reported separately billable procedures and includes the following: [x] Data and vital sign review and interpretation [x ] Patient assessment, examination and intervention [x] Medication orders and management [x] Patient/Family updates as able [x] Care Coordination and Documentation. Other Coding Information This patient has a high probability of clinically significant, sudden or life threatening deterioration of the patient's (neurological/pulmonary/cardiac/renal/ID/endocrine) systems required my full, direct attention, the highest level of physician preparedness for urgent intervention and personal management. I managed/supervised life or organ supporting interventions that required frequent physician assessment. I devoted my full attention in the ICU to the direct care of this patient for the period of time indicated above. Time I spent with family or surrogate(s) is included only if the patient was incapable of providing necessary information or participating in decision making. This time includes the following services provided: Telemetry review Mechanical Ventilation Hemodynamic interpretation, assessment and management Review and interpretation of CXR Review and interpretation of lab values Review and interpretation of microbiologic data and culture results Review of medications and administration Review and interpretation of Nutrition requirements and management Discussion of management with other consultants and services Clinical update to family members Diagnoses ARDS (adult respiratory distress syndrome) J80 Shock R57.9 Acute respiratory failure with hypoxia and hypercapnia J96.01; J96.02 Obstructive sleep apnea G47.33 CHF (congestive heart failure) I50.33 Heart failure type: diastolic Heart failure chronicity: acute on chronic Dialysis patient Z99.2 Acute kidney injury N17.9 S/P bronchoscopy with bronchoalveolar lavage Z98.890 Pneumonia J18.9 Sepsis A41.9 Flash pulmonary edema J81.0 Hypertensive emergency I16.1 Fever R50.9 Ventilator dependent Z99.11 Open wound of right hand S61.401A GI bleed K92.2 Atrial fibrillation with RVR I48.91 Duodenal ulcer K26.9 NSTEMI (non-ST elevated myocardial infarction) I21.4 Essential hypertension I10 Goals of care, counseling/discussion Z71.89
[2022-09-23 20:01] LABS: Glucose Point of Care 113 mg/dL (70-110)
[2022-09-23] MEDS: artificial tears Op Oint 3.5 gm 1 APPLIC EYE-BOTH (20:28)
[2022-09-23] MEDS: metoprolol tartrate 50 mg Tablet PO (20:28)
[2022-09-23] MEDS: atorvastatin 40 mg Tablet PO (20:28)
[2022-09-24] VITALS (47 sets, daily range): BP systolic 113–179; BP diastolic 76–129; PULSE 71–132; RESP 16–24; TEMP 36.8–37.9; O2SAT 93–100
[2022-09-24 00:01] LABS: Glucose Point of Care 109 mg/dL (70-110)
[2022-09-24] MEDS: piperacillin-tazobactam 3.375 GM in sodium chloride 0.9% (plus) 50 ML IV ×2 (00:45→14:01)
[2022-09-24] MEDS: chlorhexidine gluconate 4% Btl 118 mL 1 APPLIC TOPICAL (00:47)
[2022-09-24] MEDS: ipratropium-albuterol 3 mL Neb INHALATION ×4 (03:12→15:28)
[2022-09-24 04:04] LABS: Glucose Point of Care 121 mg/dL (70-110)
[2022-09-24] MEDS: acetaminophen 325 mg Tablet 650 MG PO (04:08)
[2022-09-24 04:14] LABS: Basophils # 0.1 10^3/uL (0.0-0.1); Basophils % 0.6 %; Eosinophils # 0.3 10^3/uL (0.0-0.8); Eosinophils % 3.4 %; Hematocrit 39.7 % (37.0-47.0); Hemoglobin 12.5 g/dL (11.5-15.3); Lymphocytes # 1.8 10^3/uL (0.8-4.8); Lymphocytes % 20.6 %; Mean Corpuscular HGB Conc 31.5 g/dL (30.0-36.0); Mean Corpuscular Hemoglobin 27.7 pg (28.0-34.0); Mean Corpuscular Volume 87.8 fl (81-99); Monocytes # 0.8 10^3/uL (0.2-0.9); Monocytes % 8.9 %; Neutrophils % 63.1 %; Nucleated Red Blood Cells % 0 %; Platelet Count 201 10^3/cmm (130-400); Red Blood Count 4.52 10^6/uL (4.1-5.3); Red Cell Distribution Width 13.2 % (12.1-15.1); White Blood Count 8.6 10^3/uL (4.0-10.0)
[2022-09-24 04:26] LABS: Alanine Aminotransferase 44 U/L (0-33); Albumin Level 3.8 g/dL (3.5-5.2); Alkaline Phosphatase 67 U/L (35-105); Aspartate Amino Transferase 44 U/L (0-32); Blood Urea Nitrogen 54 mg/dL (6-20); Calcium 9.9 mg/dL (8.5-10.5); Carbon Dioxide 20 mmol/L (22-29); Globulin 3.1 g/dL (1.3-4.6); Glucose 122 mg/dL (65-115); Magnesium 1.8 mg/dL (1.7-2.3); Phosphorus 3.6 mg/dL (2.5-4.5); Total Bilirubin 0.6 mg/dL (0.15-1.2); Total Protein 6.9 g/dL (6.6-8.7)
[2022-09-24] MEDS: sucralfate 1 gm Tablet PO ×4 (04:43→23:34)
[2022-09-24] MEDS: budesonide 0.5 mg/2 mL Neb INHALATION ×2 (07:10→20:01)
[2022-09-24 07:52] LABS: Glucose Point of Care 123 mg/dL (70-110)
[2022-09-24] MEDS: HYDROmorphone 1 mg/mL INJ 1 mL IVP (09:21)
[2022-09-24] MEDS: pantoprazole 40 mg SDV IVP ×2 (09:22→17:17)
[2022-09-24] MEDS: dilTIAZem 5 mg/mL SDV 5 mL 10 MG IVP (09:22)
[2022-09-24] MEDS: levothyroxine 100 mcg SDV 50 MCG IVP (09:23)
[2022-09-24] MEDS: amiodarone 200 mg Tablet 400 MG PO ×2 (09:23→17:15)
[2022-09-24] MEDS: docusate sodium 10 mg/mL (5ml) Liq 50 MG PO (09:23)
[2022-09-24] MEDS: metoprolol tartrate 50 mg Tablet 100 MG PO ×2 (09:34→20:39)
[2022-09-24 09:39] LABS: Anion Gap 18.8 (5-19); Chloride 99 mmol/L (98-107); Osmolality Calculated 294 mOsm/kg (285-295); Potassium 3.8 mmol/L (3.5-5.1); Sodium 134 mmol/L (136-145)
[2022-09-24] MEDS: ondansetron 2 mg/ML SDV 2 mL 4 MG IVP (10:41)
[2022-09-24] MEDS: dilTIAZem 60 mg Tablet PO ×3 (10:41→21:10)
[2022-09-24] MEDS: vancomycin 1,000 MG in sodium chloride 0.9% 250 ML 250 MG IV (12:34)
--- NOTE | 2022-09-24 13:40 | PM.PN ---
Subjective Subjective: Remains intubated and sedated. Does respond at times. Cough on ET tube. Medications: Reviewed: Yes Vitals/I&O/Wt Last Vital Signs Temp 99.6 F 09/24/22 06:00 Pulse 92 09/24/22 11:35 Resp 19 H 09/24/22 11:38 BP 153/105 09/24/22 10:00 Pulse Ox 100 09/24/22 11:38 O2 Del Method 09/24/22 11:35 O2 Flow Rate 6 09/08/22 09:00 FiO2 40 09/24/22 11:38 09/23/22 09/24/22 09/24/22 22:59 06:59 14:59 Intake Total 757.280 / 2279.845 259.159 / 2539.004 393.75 / 393.75 Output Total 675 / 675 800 / 1475 Balance 82.280 / 1604.845 -540.841 / 1064.004 393.75 / 393.75 Weight last 48 hrs Weight 359 lb 3.2 oz Weight 399 lb 0.587 oz Weight 358 lb 9.6 oz Weight 375 lb 14.21 oz Physical Exam Extremity: NARRATIVE EXTREMITY EXAM: Mottled, no longer cyanotic Urinary Catheter Management: Cha: Cath Placed During This Visit: yes, but has since been removed by the nurse Reason for Continuing Indwelling Catheter: Accurate Measurement of Urinary Output in Critically Ill Patients Urinary Catheter Date of Insertion: 09/23/22 Urinary Catheter Time of Insertion: 09:00 Date Urinary Catheter Removed: 09/23/22 Time Urinary Catheter Discontinued: 09:27 Data 09/24/22 03:55 09/24/22 03:55 Micro: Microbiology 09/24/22 10:30 Blood Culture - Preliminary Blood SPECIMEN COLLECTED 09/24/22 10:20 Blood Culture - Preliminary Blood SPECIMEN COLLECTED Attestations Medical Necessity Statement*: 2 [place] Procedures Arterial Line Size (Gauge): 20 Coding Level of Care Code 46320 Time Spent (min) 16
--- NOTE | 2022-09-24 14:24 | P.PN_ITS ---
Subjective Subjective: on 40 % fio2 Medications: Reviewed: Yes Vitals/I&O/Wt Last Vital Signs Temp 99.6 F 09/24/22 06:00 Pulse 92 09/24/22 11:35 Resp 19 H 09/24/22 11:38 BP 153/105 09/24/22 10:00 Pulse Ox 100 09/24/22 11:38 O2 Del Method 09/24/22 11:35 O2 Flow Rate 6 09/08/22 09:00 FiO2 40 09/24/22 11:38 09/23/22 09/24/22 09/24/22 22:59 06:59 14:59 Intake Total 757.280 / 2279.845 259.159 / 2539.004 643.75 / 643.75 Output Total 675 / 675 800 / 1475 Balance 82.280 / 1604.845 -540.841 / 1064.004 643.75 / 643.75 Weight last 48 hrs Weight 162.93 kg Weight 181 kg Weight 162.658 kg Weight 170.5 kg Physical Exam Narrative: Patient remains intubated Urinary Catheter Management: Cha: Cath Placed During This Visit: yes, but has since been removed by the nurse Reason for Continuing Indwelling Catheter: Accurate Measurement of Urinary Outp ut in Critically Ill Patients Urinary Catheter Date of Insertion: 09/23/22 Urinary Catheter Time of Insertion: 09:00 Date Urinary Catheter Removed: 09/23/22 Time Urinary Catheter Discontinued: 09:27 Data 09/24/22 03:55 09/24/22 03:55 Micro: Microbiology 09/24/22 10:30 Blood Culture - Preliminary Blood SPECIMEN COLLECTED 09/24/22 10:20 Blood Culture - Preliminary Blood SPECIMEN COLLECTED A&P Assessment and plan (1) Acute kidney injury: Plan 1. Acute kidney injury. Different includes contrast nephropathy, sepsis, acute interstitial nephritis, hemodynamic. . Due to high O2 requirement and worsening renal function patient was started on HD. Would like to keep her on a negative fluid balance, Eval daily for hD needs. baseline creatinine was normal prior to admission at 0.5. Status post permacath placement due to no improvement in renal function and anticipation of requiring dialysis for few weeks/months -UOP improving , patient likely be intravascularly dry , hold bumex, hold HD today 2. Volume overload:HD as above , 3. Primary respiratory acidosis, hypercapneic respiratory failure on ventilator, 4. sepsis with pneumonia 6. HTN Attestations Medical Necessity Statement*: Per primary Procedures Arterial Line Size (Gauge): 20 Coding Level of Care Code Acute Code for Chg Fwd Diagnoses Acute kidney injury N17.9
[2022-09-24 14:25] LABS: Glucose Point of Care 122 mg/dL (70-110)
[2022-09-24] MEDS: dilTIAZem 100 MG in sodium chloride 0.9% (add-van) 100 ML IV (15:16)
[2022-09-24] MEDS: diphenhydrAMINE 50 mg/mL SDV 1mL 25 MG IVP (15:17)
--- NOTE | 2022-09-24 15:52 | P.PN_ITS ---
Subjective Subjective: Today morning seen at bedside with family. Patient was turned over to SIMV mode again 07/04 today. Patient has been on SIMV mode for around 5 to 6 hours. Repeat ABG will be done prior to switching her over to full support. Patient doing better on SIMV. Overnight has remained on FiO2 40% with PEEP of 8 and tidal volume of 420. Heart rate yesterday in the evening was better but overnight again patient has remained tachycardic. Amiodarone was switched to Cardizem drip since then heart rate has been better controlled. Urine output of around 1500 cc in last 24 hours without any diuretic or dialysis. Patient is not waking up to minimal stimulus. On fentanyl of 50 and Precedex of 0.6. Tmax in last 24 hours 100.3 Fahrenheit. Medications: Reviewed: Yes Vitals/I&O/Wt Last Vital Signs Temp 99.2 F 09/24/22 14:00 Pulse 97 09/24/22 15:31 Resp 22 H 09/24/22 15:30 BP 129/85 09/24/22 15:30 Pulse Ox 98 09/24/22 15:30 O2 Del Method 09/24/22 15:30 O2 Flow Rate 6 09/08/22 09:00 FiO2 40 09/24/22 15:30 09/24/22 09/24/22 09/24/22 06:59 14:59 22:59 Intake Total 259.159 / 2539.004 863.079 / 863.079 Output Total 800 / 1475 Balance -540.841 / 1064.004 863.079 / 863.079 Weight last 48 hrs Weight 162.93 kg Weight 181 kg Weight 162.658 kg Weight 170.5 kg Physical Exam Narrative: Intubated sedated on mechanical ventilation. Well sedated today Const: COMMON NORMALS: patient oriented x3 HENMT: COMMON NORMALS: normocephalic, atraumatic and hearing grossly normal bilaterally HEAD & SCALP: normocephalic and atraumatic Resp: COMMON NORMALS: clear to auscultation bilaterally AUSCULTATION: clear to auscultation bilaterally OTHER: Diminished air entry bilaterally mostly in the left lower lobe Cardio: COMMON NORMALS: regular rate, regular rhythm, S1 normal heart sound present, S2 normal heart sound present, No gallops present (Cardio), No murmurs present (Cardio), No rub (Cardio) and Peripheral pulses 2+ throughout RATE: regular rate RHYTHM: regular rhythm HEART SOUNDS: S1 normal heart sound present and S2 normal heart sound present PERIPHERAL PULSES: Peripheral pulses 2+ throughout GI: COMMON NORMALS: Normal to inspection, nondistended, normoactive bowel sounds present, Soft to palpation, non-tender, No hepatosplenomegaly present and no masses AUSCULTATION: Yes normoactive bowel sounds PALPATION: Yes Soft to palpation and Yes No hepatosplenomegaly present RECTAL EXAM: deferred Extremity: COMMON NORMALS: no clubbing, cyanosis or edema and no pedal edema Neuro: COMMON NORMALS: patient oriented x3 Skin: OTHER: Blister present in right dorsum of the hand secondary to infiltration earlier in the admission which has popped now. Slight mottling present at periphery of both hands and toes. Pulses bilaterally palpable, peripheries warm, Slight generalized rash present on the chest maculopapular Urinary Catheter Management: Cha: Cath Placed During This Visit: yes, but has since been removed by the nurse Reason for Continuing Indwelling Catheter: Accurate Measurement of Urinary Output in Critically Ill Patients Urinary Catheter Date of Insertion: 09/23/22 Urinary Catheter Time of Insertion: 09:00 Date Urinary Catheter Removed: 09/23/22 Time Urinary Catheter Discontinued: 09:27 Data 09/24/22 03:55 09/24/22 03:55 Micro: Microbiology 09/24/22 10:30 Blood Culture - Preliminary Blood SPECIMEN COLLECTED 09/24/22 10:20 Blood Culture - Preliminary Blood SPECIMEN COLLECTED A&P Assessment and plan (1) ARDS (adult respiratory distress syndrome): (2) Shock: (3) Acute respiratory failure with hypoxia and hypercapnia: (4) Obstructive sleep apnea: (5) CHF (congestive heart failure): Qualifiers: Heart failure type: diastolic Heart failure chronicity: acute on chronic Qualified Code(s): I50.33 - Acute on chronic diastolic (congestive) heart failure (6) Dialysis patient: (7) Acute kidney injury: (8) S/P bronchoscopy with bronchoalveolar lavage: On 09/13. Encountered high mucus in left lower lobe. Follow cultures. Patient desaturated during procedures to high 70s and low 80s but otherwise tolerated procedure well. (9) Pneumonia: (10) Sepsis: (11) Flash pulmonary edema: (12) Hypertensive emergency: (13) Fever: (14) Ventilator dependent: (15) Open wound of right hand: (16) GI bleed: (17) Atrial fibrillation with RVR: (18) Duodenal ulcer: (19) NSTEMI (non-ST elevated myocardial infarction): (20) Essential hypertension: (21) Goals of care, counseling/discussion: Plan 42 year old female with known past medical history of hypertension noncompliant with antihypertensive medication, morbid obesity, was accepted as a direct transfer, she was initially admitted for the management of substernal chest pain, associated with acute onset of worsening shortness of breath. Assessment: ARDS: Hypoxic and hypercapnic respiratory failure: Currently intubated. Most likely in setting of decompensated congestive heart failure in setting of hypertensive emergency and acute kidney dysfunction in setting of obstructive sleep apnea and pneumonia. Wean ventilator setting as possible. We will continue to do daily sedation vacation and weaning trials. Patient tolerated SIMV for few hours today. We will plan for SIMV and pressure support again in a.m. tomorrow. Bumex as needed. Maintain negative balance. Overall more than 16 L negative. We will hold off on daily dialysis for now. Patient seems slightly dry today. Will give bolus of 1 L of fluid today and follow-up. Fluid restriction as possible. Pulmicort twice daily, DuoNebs every 4 hourly. If patient remains tachycardic we will switch to ipratropium and Xopenex. Appreciate pulmonology recommendations. Echocardiogram done during hospitalization showed an EF of 60% grade 1 diastolic dysfunction. Coag negative bacteremia/Staph epidermidis bacteremia: Last blood cultures showed 1 out of 4 blood cultures positive. Most likely contaminant. Repeat blood cultures so far negative. For now continue with vancomycin and Zosyn. We will plan to finish 7 to 10-day course of antibiotics and discontinue again to monitor. Fever: Continue to monitor. Could be secondary to atelectasis versus possibility of ulcer secondary to thrombophlebitis on right arm. Wound care with Hydrofera Blue and OPTi foam. Antibiotic as above. A-fib with RVR: Repeat EKG. Most likely in setting of mild dehydration along with pain as patient is not on any sedating medications. Increase amiodarone to 1. Plan switch amiodarone to oral 400 mg BID if HR remains stable. Increase metoprolol 50 mg BID. Can added Cardizem low dose oral as well if HR elevated. Restart on fentanyl at 50 for now. NSTEMI: Most likely type II. Heparin stopped recently because of GI bleed. Continue to monitor. Cardiology recommendations appreciated. -Cardiac echo ordered, however patient's mother declines for now. Anemia: Secondary to GI bleed: Appreciate surgical recommendations. Duodenal ulcer managed through epinephrine. Continue Protonix twice daily, Carafate every 6. Monitor hemoglobin daily for now. Hemoglobin remained stable for next 48 hours we will plan to start on anticoagulation given A-fib with RVR. BRIDGETTE requiring hemodialysis: Post permacath placement. Had uremia yesterday which resolved. He does have hyponatremia and left abnormalities today. Getting IV fluids. Repeat BMP in evening. Appreciate nephrology recommendations. Dialysis as needed. Overall 16 L negative. Bumex 2 mg every 8 hourly as needed for now. Sedation: Fentanyl, Precedex Glycemic control: Hypoglycemia protocol Nutrition: Start tube feeds today. CODE STATUS: Discussed in detail with patient mother and who is the DPOA at bedside. Patient is full code. We discussed need for dialysis for quick improvement. Family verbalized understanding and are agreeable. PUD prophylaxis: Protonix DVT prophylaxis: SCDs, Plan for the day: Continue remain on SIMV mode as long as possible today. Switch over to full support overnight. Early tomorrow morning wean fentanyl to 25 and Precedex to around 0.3 and start weaning trial again. ABG and chest x-ray in a.m. We will hold off on diuretic and dialysis today. Strict input output charting. Repeat blood cultures. Continue with vancomycin and Zosyn. Stop amiodarone drip. Continue with oral amiodarone 40 mg twice daily. Increase metoprolol to 100 mg twice daily. Not on Cardizem drip. Titrate with heart rate of less than 100. Oral Cardizem 60 mg every 6 hourly. Switch from DuoNebs to ipratropium and Xopenex every 6 hourly. Monitor blood pressures. Target blood pressure less than 140/90 mmHg with mean over 65. Midodrine made as needed. Hemoglobin has remained stable. Start on heparin 5000 every 8 hourly for DVT prophylaxis. Continue to hold off on tube feeds. Discharge planning: Likely will require LTAC placement given prolonged intubation. We will plan for possible extubation depending on clinical picture within next 48 hours. Continue with care at ICU 09/23: Care discussed in detail with patient's mother at bedside. We discussed regarding recent GI bleed, A-fib with RVR, improving ventilator settings StoCare becoming complicated by A-fib with RVR, GI bleed with anemia requiring transfusion, BRIDGETTE requiring dialysis and possible need of anticoagulation for ongoing AF with RVR for stroke prevention. All the questions were answered. Patient remains critically sick Attestations Medical Necessity Statement*: Requires further hospitalization for management of respiratory failure, ventilator dependent, BRIDGETTE, dialysis dependent in a patient who is morbidly obese, severe undiagnosed sleep apnea leading to ARDS while weaning trials are done Procedures Arterial Line Size (Gauge): 20 Coding Level of Care Code Critical Care >/= 30 minutes Critical care time (in minutes): 100 The high probability of a clinically significant, sudden or life threatening deterioration, as referenced in this documentation, required my full and direct attention, intervention and personal management. The critical care time shown is in addition to time spent performing any reported separately billable procedures and includes the following: [x] Data and vital sign review and interpretation [x ] Patient assessment, examination and intervention [x] Medication orders and management [x] Patient/Family updates as able [x] Care Coordination and Doc umentation. Other Coding Information This patient has a high probability of clinically significant, sudden or life threatening deterioration of the patient's (neurological/p ulmonary/cardiac/renal/ID/endocrine) systems required my full, direct attention, the highest level of physician preparedness for urgent intervention and personal management. I managed/supervised life or organ supporting interventions that required frequent physician assessment. I devoted my full attention in the ICU to the direct care of this patient for the period of time indicated above. Time I spent with family or surrogate(s) is included only if the patient was incapable of providing necessary information or participating in decision making. This time includes the following services provided: Telemetry review Mechanical Ventilation Hemodynamic interpretation, assessment and management Review and interpretation of CXR Review and interpretation of lab values Review and interpretation of microbiologic data and culture results Review of medications and administration Review and interpretation of Nutrition requirements and management Discussion of management with other consultants and services Clinical update to family members Diagnoses ARDS (adult respiratory distress syndrome) J80 Shock R57.9 Acute respiratory failure with hypoxia and hypercapnia J96.01; J96.02 Obstructive sleep apnea G47.33 CHF (congestive heart failure) I50.33 Heart failure type: diastolic Heart failure chronicity: acute on chronic Dialysis patient Z99.2 Acute kidney injury N17.9 S/P bronchoscopy with bronchoalveolar lavage Z98.890 Pneumonia J18.9 Sepsis A41.9 Flash pulmonary edema J81.0 Hypertensive emergency I16.1 Fever R50.9 Ventilator dependent Z99.11 Open wound of right hand S61.401A GI bleed K92.2 Atrial fibrillation with RVR I48.91 Duodenal ulcer K26.9 NSTEMI (non-ST elevated myocardial infarction) I21.4 Essential hypertension I10 Goals of care, counseling/discussion Z71.89
[2022-09-24 16:28] LABS: ABG PCO2 45.1 mmHg (35-45); ABG PH Result 7.29 (7.35-7.45); Alveolar-Arterial Oxygen Gradi 17.4 mmHg (5-10); Arterial Blood Gas Hematocrit 38.3 % (37-47); Base Excess ABG -4.8 mmol/L (-2.0-2.0); Blood Gas Allen Test Pos; Blood Gas Operator Identificat MONRO; Blood Gas Sample Site Radial, right; Blood Gas Sample Type Arterial; Blood Gas Tidal Volume 0.42; Carboxyhemoglobin 1.3 %THgb (0.4-20.1); HCO3 ABG 21.7 mmol/L (22-26); HGB O2 Sat 95.5 % (95-100); Ionized Calcium Level - ABG 1.3 mmol/L (1.1-1.4); Methemoglobin 0.9 % (0.4-1.5); Oxygen Device VENT; Oxygen Saturation ABG 97.6; PO2 ABG 92.9 mmHg (80.0-100.0); Potassium Level - ABG 3.8 mmol/L (3.5-5.0); Total Hemoglobin 12.5 g/dL (12-16)
[2022-09-24 17:16] LABS: Glucose Point of Care 130 mg/dL (70-110)
[2022-09-24] MEDS: heparin 5,000 unit/mL INJ 1 mL 5000 UNIT SUBCUT ×2 (17:18→23:34)
--- NOTE | 2022-09-24 19:35 | PC.NURSE ---
All charting for LENO Yarbrough, reviewed by Federico Singh RN.
[2022-09-24] MEDS: levalbuterol 0.63 mg/3 mL Neb INHALATION (20:01)
[2022-09-24] MEDS: ipratropium 0.5 mg/2.5 mL Neb INHALATION (20:01)
[2022-09-24 20:05] LABS: Glucose Point of Care 112 mg/dL (70-110)
[2022-09-24] MEDS: atorvastatin 40 mg Tablet PO (20:39)
--- NOTE | 2022-09-24 22:42 | PC.NURSE ---
Patients heart rate dropped to 70 with a flutter when repositioning. Start of shift patients heart rate was running a flutter, low 100's. BP also became softer after reposition. Patients Cardizem was paused due to this reason.
[2022-09-24] MEDS: artificial tears Op Oint 3.5 gm 1 APPLIC EYE-BOTH (23:34)
[2022-09-25] VITALS (36 sets, daily range): BP systolic 79–157; BP diastolic 53–108; PULSE 78–131; RESP 17–28; TEMP 36.5–37.2; O2SAT 89–100
[2022-09-25] MEDS: chlorhexidine gluconate 4% Btl 118 mL 1 APPLIC TOPICAL (00:51)
[2022-09-25] MEDS: piperacillin-tazobactam 3.375 GM in sodium chloride 0.9% (plus) 50 ML IV ×2 (00:53→13:23)
[2022-09-25 03:06] LABS: Basophils % 0.4 %; Eosinophils # 0.3 10^3/uL (0.0-0.8); Eosinophils % 4.5 %; Hematocrit 37.3 % (37.0-47.0); Lymphocytes # 1.5 10^3/uL (0.8-4.8); Lymphocytes % 21.9 %; Mean Corpuscular HGB Conc 32.2 g/dL (30.0-36.0); Mean Corpuscular Hemoglobin 27.8 pg (28.0-34.0); Mean Corpuscular Volume 86.3 fl (81-99); Mean Platelet Volume 9.6 fL (7.4-10.4); Monocytes # 0.6 10^3/uL (0.2-0.9); Monocytes % 8.3 %; Neutrophils # 4.23 10^3/uL (1.8-7.7); Neutrophils % 61.8 %; Nucleated Red Blood Cells % 0 %; Platelet Count 177 10^3/cmm (130-400); Red Blood Count 4.32 10^6/uL (4.1-5.3); Red Cell Distribution Width 13.3 % (12.1-15.1); White Blood Count 6.9 10^3/uL (4.0-10.0)
[2022-09-25] MEDS: levalbuterol 0.63 mg/3 mL Neb INHALATION ×4 (03:07→19:57)
[2022-09-25] MEDS: ipratropium 0.5 mg/2.5 mL Neb INHALATION ×5 (03:07→19:57)
[2022-09-25 03:25] LABS: Alanine Aminotransferase 36 U/L (0-33); Albumin Level 3.9 g/dL (3.5-5.2); Alkaline Phosphatase 66 U/L (35-105); Anion Gap 17.6 (5-19); Aspartate Amino Transferase 34 U/L (0-32); Blood Urea Nitrogen 57 mg/dL (6-20); Calcium 9.5 mg/dL (8.5-10.5); Carbon Dioxide 20 mmol/L (22-29); Chloride 98 mmol/L (98-107); Globulin 2.8 g/dL (1.3-4.6); Glomerular Filtration Rate 11.3 mL/min (90-130); Glucose 107 mg/dL (65-115); Osmolality Calculated 290 mOsm/kg (285-295); Potassium 3.6 mmol/L (3.5-5.1); Sodium 132 mmol/L (136-145); Total Bilirubin 0.5 mg/dL (0.15-1.2); Total Protein 6.7 g/dL (6.6-8.7)
[2022-09-25 03:26] LABS: ABG PH Result 7.36 (7.35-7.45); Base Excess ABG -4.6 mmol/L (-2.0-2.0); Blood Gas Allen Test POS; Oxygen Device VENT; Oxygen Saturation ABG 96; Potassium Level - ABG 3.7 mmol/L (3.5-5.0)
[2022-09-25 03:27] LABS: Alveolar-Arterial Oxygen Gradi 154.9 mmHg (5-10); Arterial Blood Gas Hematocrit 38.6 % (37-47); Blood Gas Sample Site R RAD; Blood Gas Sample Type ART; Ionized Calcium Level - ABG 1.3 mmol/L (1.1-1.4)
[2022-09-25 03:28] LABS: HGB O2 Sat 95.2 % (95-100); Methemoglobin 0.1 % (0.4-1.5); Total Hemoglobin 12.6 g/dL (12-16)
--- NOTE | 2022-09-25 03:56 | XRR_ITS ---
PROCEDURE INFORMATION: Exam: XR Chest Exam date and time: 09/25/2022 4:10 AM Age: 42 years old Clinical indication: Device placement; Ng tube; Other: Daily portable for intubated PT; Additional info: Confirmation of ng tube placement TECHNIQUE: Imaging protocol: Radiologic exam of the chest. Views: 1 view. COMPARISON: CR (CHEST, ) 09/23/2022 6:57 AM FINDINGS: Tubes, catheters and devices: An endotracheal tube is placed with its tip 3 cm from the maynor. A nasogastric tube is present with its tip in the proximal stomach. EKG leads overlie the chest. Lungs: There is some improvement in aeration in the lungs compared with 09/23/2022. Residual hazy opacities are seen in the perihilar regions bilaterally, findings that could represent pulmonary edema. Pleural spaces: Unremarkable. No pleural effusion. No pneumothorax. Heart/Mediastinum: Unremarkable. No cardiomegaly. Bones/joints: Unremarkable. XR/XR chest 1V portable [id number] IMPRESSION: 1. Endotracheal tube tip 3 cm from the maynor. 2. Nasogastric tube tip in proximal stomach 3. Improvement in aeration in the lungs compared with 09/23/2022 with residual perihilar haziness noted, findings that may represent pulmonary edema.
[2022-09-25 04:45] LABS: Glucose Point of Care 117 mg/dL (70-110)
[2022-09-25] MEDS: sucralfate 1 gm Tablet PO ×4 (04:56→23:29)
[2022-09-25] MEDS: dilTIAZem 60 mg Tablet PO (04:57)
[2022-09-25] MEDS: acetaminophen 325 mg Tablet 650 MG PO (05:10)
[2022-09-25] MEDS: budesonide 0.5 mg/2 mL Neb INHALATION ×2 (07:33→19:57)
--- NOTE | 2022-09-25 08:43 | PM.PN ---
Subjective Subjective: ON 40 % fio2 no pressors UOP picking up Medications: Reviewed: Yes Vitals/I&O/Wt Last Vital Signs Temp 97.7 F 09/25/22 08:00 Pulse 102 H 09/25/22 08:00 Resp 22 H 09/25/22 07:40 BP 125/75 09/25/22 08:00 Pulse Ox 97 09/25/22 07:40 O2 Del Method 09/25/22 07:34 O2 Flow Rate 40 09/25/22 07:34 FiO2 40 09/25/22 07:40 09/24/22 09/25/22 09/25/22 22:59 06:59 14:59 Intake Total 328.542 / 1191.621 511.975 / 1703.596 Output Total 875 / 875 1250 / 2125 Balance -546.458 / 316.621 -738.025 / -421.404 Weight last 48 hrs Weight 166.468 kg Weight 162.93 kg Weight 181 kg Physical Exam Narrative: Patient remains intubated Urinary Catheter Management: Cha: Cath Placed During This Visit: yes, but has since been removed by the nurse Reason for Continuing Indwelling Catheter: Accurate Measurement of Urinary Output in Critically Ill Patients Urinary Catheter Date of Insertion: 09/23/22 Urinary Catheter Time of Insertion: 09:00 Date Urinary Catheter Removed: 09/23/22 Time Urinary Catheter Discontinued: 09:27 Data 09/25/22 02:55 09/25/22 02:55 Micro: Microbiology 09/19/22 15:55 Blood Culture - Final Blood NO GROWTH AFTER 5 DAYS 09/24/22 10:30 Blood Culture - Preliminary Blood SPECIMEN COLLECTED 09/24/22 10:20 Blood Culture - Preliminary Blood SPECIMEN COLLECTED A&P Assessment and plan (1) Acute kidney injury: Plan 1. Acute kidney injury. Different includes contrast nephropathy, sepsis, acute interstitial nephritis, hemodynamic. . Due to high O2 requirement and worsening renal function patient was started on HD. Would like to keep her on a negative fluid balance, Eval daily for hD needs. baseline creatinine was normal prior to admission at 0.5. Status post permacath placement due to no improvement in renal function , -UOP improving , patient likely be intravascularly dry , holding HD for now, can give PRN diuretics -possible recovering renal function 2. Volume overload: s/p HD , on hold now , 3. Primary respiratory acidosis, hypercapneic respiratory failure on ventilator, 40 percent FiO2% fio2 4. sepsis with pneumonia 6. HTN Attestations Medical Necessity Statement*: Requires further hospitalization for management of respiratory failure, ventilator dependent, BRIDGETTE, dialysis dependent in a patient who is morbidly obese, severe undiagnosed sleep apnea leading to ARDS while weaning trials are done Procedures Arterial Line Size (Gauge): 20 Coding Level of Care Code Acute Code for Chg Fwd Diagnoses Acute kidney injury N17.9
[2022-09-25] MEDS: heparin 5,000 unit/mL INJ 1 mL 5000 UNIT SUBCUT ×3 (09:03→23:29)
[2022-09-25] MEDS: pantoprazole 40 mg SDV IVP ×2 (09:04→17:12)
[2022-09-25] MEDS: levothyroxine 100 mcg SDV 50 MCG IVP (09:04)
[2022-09-25] MEDS: amiodarone 200 mg Tablet 400 MG PO ×2 (09:05→17:12)
--- NOTE | 2022-09-25 09:09 | PM.PN ---
Subjective Subjective: Patient was extubated today. Denies chest pain. Heart rate is better controlled. Vitals/I&O/Wt Last Vital Signs Temp 97.7 F 09/25/22 08:00 Pulse 102 H 09/25/22 08:00 Resp 27 H 09/25/22 08:43 BP 125/75 09/25/22 08:00 Pulse Ox 96 09/25/22 08:43 O2 Del Method 09/25/22 07:34 O2 Flow Rate 40 09/25/22 07:34 FiO2 40 09/25/22 08:43 09/24/22 09/25/22 09/25/22 22:59 06:59 14:59 Intake Total 328.542 / 1191.621 511.975 / 1703.596 Output Total 875 / 875 1250 / 2125 Balance -546.458 / 316.621 -738.025 / -421.404 Weight last 48 hrs Weight 367 lb Weight 359 lb 3.2 oz Weight 399 lb 0.587 oz Physical Exam Narrative: GENERAL: Patient on bipap HEART: Irregularly irregular, tachycardic LUNGS: Diminished air entry ABDOMEN: Soft EXTREMITIES: Lower extremities with 1+ edema bilaterally. Urinary Catheter Management: Cha: Cath Placed During This Visit: yes, but has since been removed by the nurse Reason for Continuing Indwelling Catheter: Accurate Measurement of Urinary Output in Critically Ill Patients Urinary Catheter Date of Insertion: 09/23/22 Urinary Catheter Time of Insertion: 09:00 Date Urinary Catheter Removed: 09/23/22 Time Urinary Catheter Discontinued: 09:27 Data 09/25/22 02:55 09/25/22 02:55 Micro: Microbiology 09/19/22 15:55 Blood Culture - Final Blood NO GROWTH AFTER 5 DAYS 09/24/22 10:30 Blood Culture - Preliminary Blood SPECIMEN COLLECTED 09/24/22 10:20 Blood Culture - Preliminary Blood SPECIMEN COLLECTED A&P Assessment and plan (1) Atrial fibrillation with RVR: (2) Duodenal ulcer: (3) GI bleed: (4) Shock: (5) ARDS (adult respiratory distress syndrome): (6) Acute respiratory failure with hypoxia and hypercapnia: (7) Obstructive sleep apnea: (8) Acute kidney injury: (9) Sepsis: (10) Pneumonia: Plan Patient is doing better. Extubated this morning. Heart rate is better controlled. Continue metoprolol and amiodarone. Medical management per primary team Thank you for involving us with care of this patient. We will continue to follow. Please call with questions. Attestations Medical Necessity Statement*: Care expected to cross 2 midnights. Procedures Arterial Line Size (Gauge): 20 Coding Level of Care Code Acute Code for Chg Fwd Diagnoses Atrial fibrillation with RVR I48.91 Duodenal ulcer K26.9 GI bleed K92.2 Shock R57.9 ARDS (adult respiratory distress syndrome) J80 Acute respiratory failure with hypoxia and hypercapnia J96.01; J96.02 Obstructive sleep apnea G47.33 Acute kidney injury N17.9 Sepsis A41.9 Pneumonia J18.9
[2022-09-25 09:36] LABS: ABG PCO2 36.4 mmHg (35-45); ABG PH Result 7.36 (7.35-7.45); Alveolar-Arterial Oxygen Gradi 17.4 mmHg (5-10); Arterial Blood Gas Hematocrit 39.4 % (37-47); Base Excess ABG -4.6 mmol/L (-2.0-2.0); Blood Gas Allen Test Pos; Blood Gas Operator Identificat MONRO; Blood Gas Sample Site Radial, right; Blood Gas Sample Type Arterial; Carboxyhemoglobin 0.9 %THgb (0.4-20.1); HCO3 ABG 20.3 mmol/L (22-26); HGB O2 Sat 97.1 % (95-100); Ionized Calcium Level - ABG 1.3 mmol/L (1.1-1.4); Methemoglobin 0.3 % (0.4-1.5); Oxygen Device VENT; Oxygen Saturation ABG 98.3; Potassium Level - ABG 3.7 mmol/L (3.5-5.0); Total Hemoglobin 12.9 g/dL (12-16)
[2022-09-25] MEDS: metoprolol tartrate 50 mg Tablet 100 MG PO (09:36)
[2022-09-25] MEDS: dilTIAZem 60 mg Tablet 90 MG PO ×2 (09:36→14:11)
[2022-09-25] MEDS: docusate sodium 10 mg/mL (5ml) Liq 50 MG PO (09:36)
[2022-09-25] MEDS: HYDROcodone-acetaminophen 7.5-325 mg Tablet 1 TAB PO ×2 (09:42→17:16)
--- NOTE | 2022-09-25 09:56 | PC.NURSE ---
Dr. Rodríguez at bedside, gave order to extubate and turn Fentanyl drip to 12.5 and precedex to 0.3, extubated to bipap per RT
--- NOTE | 2022-09-25 12:45 | P.PN_ITS ---
Subjective Subjective: Seen patient at bedside l multiple times at bedside today Her urine output have been significantly improving, electrolytes are within normal limits despite holding Bumex No fever spikes in last 24 hours; heart rate better controlled with Cardizem and metoprolol. She is also on amiodarone 400 Mg p.o. twice daily. She is tolerating SIMV-opening eyes and following commands-she is able to lift h er head; placed on PSV and her ABG 7.3 6/36/102/20/98% on 40% FiO2 and PEEP of 10 On fentanyl 50 mcg and Precedex-currently being tapered down Overall-I feel like this is best opportunity to extubate to noninvasive ventilation and give patient a chance. She needs aggressive postextubation physical therapy and respiratory care. Postextubation she needs to be closely monitored for opiate withdrawal- recommended [place] as needed for pain; agree with starting low-dose Seroquel Vitals/I&O/Wt Last Vital Signs Temp 97.7 F 09/25/22 08:00 Pulse 105 H 09/25/22 11:26 Resp 27 H 09/25/22 08:43 BP 157/102 09/25/22 09:00 Pulse Ox 96 09/25/22 11:26 O2 Del Method 09/25/22 07:34 O2 Flow Rate 40 09/25/22 07:34 FiO2 40 09/25/22 11:26 09/24/22 09/25/22 09/25/22 22:59 06:59 14:59 Intake Total 328.542 / 1191.621 511.975 / 1703.596 77.690 / 77.690 Output Total 875 / 875 1250 / 2125 Balance -546.458 / 316.621 -738.025 / -421.404 77.690 / 77.690 Weight last 48 hrs Weight 367 lb Weight 359 lb 3.2 oz Physical Exam Narrative: PHYSICAL EXAM: General: Morbidly obese, young female, lying in bed, sedated and intubated-opens eyes and follows commands HEENT:NCAT, PERRLA, EOMI Neck: Supple Lungs: Bilateral diffuse crackles Heart: s1/s2, RRR Abd: soft, NT, ND, BS + Normoactive Extremities: No edema, right forearm infiltrated 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 SKIN: Stage II ulcer dorsum of right hand LDA: # HD Cath : Placed 09/21/2022 #CVC: Right femoral line 09/08/2022 Urinary Catheter Management: Cha: Cath Placed During This Visit: yes, but has since been removed by the nurse Reason for Continuing Indwelling Catheter: Accurate Measurement of Urinary Output in Critically Ill Patients Urinary Catheter Date of Insertion: 09/23/22 Urinary Catheter Time of Insertion: 09:00 Date Urinary Catheter Removed: 09/23/22 Time Urinary Catheter Discontinued: 09:27 Data 09/25/22 02:55 09/25/22 02:55 Micro: Microbiology 09/24/22 10:20 Blood Culture - Preliminary Blood NEGATIVE TO DATE 09/24/22 10:30 Blood Culture - Preliminary Blood NEGATIVE TO DATE 09/19/22 15:55 Blood Culture - Final Blood NO GROWTH AFTER 5 DAYS A&P Assessment and plan (1) Acute respiratory failure with hypoxia and hypercapnia: (2) Obstructive sleep apnea: (3) Pneumonia: (4) Flash pulmonary edema: (5) Acute kidney injury: (6) ARDS (adult respiratory distress syndrome): (7) Open wound of right hand: (8) NSTEMI (non-ST elevated myocardial infarction): (9) Duodenal ulcer: (10) Atrial fibrillation with RVR: Plan ASSESSMENT/PLAN:Overall: 42-year-old young female with past medical history of hypertension-noncompliant with her medications-initially comes with hypertensive emergency with flash pulmonary edema-treated with nicardipine drip-becomes hypotensive-started on pressors and antibiotics for presumed sepsis. She went into respiratory failure requiring mechanical ventilation support. She also developed BRIDGETTE requiring temporary hemodialysis. NEURO: #Sedation -Patient is awake and following commands -Taper fentanyl and Precedex PULM: #Acute hypoxic and hypercapnic respiratory failure-probably there is a chronic component given her morbid obesity -Acute component secondary to flash pulmonary edema due to hypertensive regis rgency - -She tolerated breathing trial today-this is the best opportunity to extubate to noninvasive ventilation -She needs aggressive postintubation pulmonary rehabilitation and physical therapy -She underwent CTA for increasing oxygen requirements-there was a lot of motion artifact and CT was nondiagnostic for pulmonary arteries. There is moderate cardiac enlargement and enlarged main pulmonary artery suggesting pulmonary hypertension. There was partial atelectasis of left upper lobe and complete atelectasis of both lower lobes. -We have to stop for IV heparin due to coffee-ground NG secretions as well as rectal secretions-today EGD showed shallow bleeding ulcers -She underwent bronchoscopic evaluation for airways 09/13/2022-there were thick mucus secretions in bilateral lower lobes which were suctioned-BAL neutrophils predominant-final cultures negative -She is on scheduled nebulization with DuoNeb as well as Pulmicort -Currently held Bumex 2 Mg Q8 as well as hemodialysis; patient is making good urine output and overall significant volume removed CVS: #Hypertensive emergency-treated with nicardipine [id number] circulatory shock-likely secondary to possible nicotine toxicity or demand ischemia due to underlying? Sepsis #A-fib RVR -Rate control with Cardizem and metoprolol; patient is on amiodarone -Echocardiogram during admission showed normal LV size, systolic function with EF 60%. Grade 1 diastolic dysfunction. -Elevated BNP -Currently held Bumex 2 Mg every 8 hours and hemodialysis-improving urine output -On midodrine 10 Mg p.o. as needed -Continue close hemodynamic and cardiac monitoring GI: #Diet: N.p.o. as we are preparing for extubation #GI prophylaxis: PPI every 12 hours and sucralfate #LFTs: elevated - monitor RENAL: #BRIDGETTE-most likely prerenal secondary to ischemic ATN due to hypotension/? Contrast-induced nephropathy-likely recovering -Currently held Bumex and hemodialysis-improving urine output -Electrolytes are acceptable - HEM: #GI bleed -EGD today showed shallow duodenal ulcers and received epinephrine injection -PPI every 12 hours and sucralfate -H&H stable -We will monitor H&H -Held her IV heparin -Monitor H&H #WBC-normal #H&H stable #Normal platelets ENDO: #Significantly elevated TSH-suspect hypothyroidism-patient on levothyroxine 50 mcg q. p.o. daily-she may need to follow-up as outpatient #Normal blood sugars #Possible underlying adrenal insufficiency-held steroids due to duodenal ulcers ID: #Presumably met sepsis criteria #Low-grade temperature spikes- #Stage II ulcer on dorsum of hand-surgery to evaluate -Pulmonary infiltrates on imaging-with leukocytosis-and hypotension-there was a suspicion if it is all septic shock secondary to pneumonia; -However infiltrates can be explained with fluid overload, hypotension secondary to Cardene drip -Patient procalcitonin is low -Repeat blood cultures sent today 09/16/22 -06/28 bottle Staph epidermidis-likely contaminant -Currently back on vancomycin and Zosyn -BAL neutrophil predominance-final cultures negative Code Status: Full code Disposition: ICU Critically ill: Yes MD discussed with: Hospitalist, RN, RT taking care of the patient ICU CHECKLIST: Problem list updated Verbal orders reviewed and signed Analgesia: Fentanyl Glycemic Control: N/A Nutrition: npo Restraint Renewal (within 24 hrs): Yes Ulcer Prophylaxis: PPI Chemical Thromboprophylaxis: Prophylaxis: na-GI bleed Mechanical Thromboprophylaxis: SCDs Need for Central line: Yes for multiple medications Need for Cha catheter: Yes for urine output monitoring Attestations Medical Necessity Statement*: Plan is to extubate to noninvasive ventilation today; may need at least 24 hours ICU monitoring and low threshold for intubation If patient does well-she can be transferred to floor in next 24 to 48 hours Time Spent in Patient Care: Greater than 35 minutes (>than 50% of time spent in counselling and/or direct pt care on unit) . Critical Care Time: This patient has a high probability of? clinically sig nificant, sudden o r life threatening deterioration of the patient's (jonathan rological/pulmonar y/cardiac/renal/ID /endocrine) system s required my full , direct attention , the highest leve l of physician pre paredness for urge nt intervention an d personal managem ent.? I managed/meade pervised life or o rgan supporting in terventions that r equired frequent p hysician assessmen t.? I devoted my f ull attention in t he ICU to the dire ct care of this pa tient for the kareen od of time indicat ed above.? Time I spent with family or surrogate(s) is included only if the patient was in capable of providi ng necessary infor mation or particip ating in decision making.? This annie e includes the [facility] services pr ovided: Telemetry review Mechanical Ventilation Hemod ynamic interpretat ion, assessment an d management Revie w and interpretati on of CXR Review a nd interpretation of lab values Revi ew and interpretat ion of microbiolog ic data and cultur e results Review o f medications and administration Rev iew and interpreta tion of Nutrition requirements and m anagement Discussi on of management w ith other consulta nts and services C linical update to family members [x ] Data and vital s ign review and int erpretation [x] Segun humphrey assessment, examination and in tervention [x] Doc umentation [x] Med ication orders and management Time spent for teaching as well as perfor aydin procedures ar e billed separatel y and is not inclu ded in this note ? Critical Care Annie e (min): 67 Procedures Arterial Line Size (Gauge): 20 Coding Level of Care Code Critical Care >/= 30 minutes Diagnoses Acute respiratory failure with hypoxia and hypercapnia J96.01; J96.02 Obstructive sleep apnea G47.33 Pneumonia J18.9 Flash pulmonary edema J81.0 Acute kidney injury N17.9 ARDS (adult respiratory distress syndrome) J80 Open wound of right hand S61.401A NSTEMI (non-ST elevated myocardial infarction) I21.4 Duodenal ulcer K26.9 Atrial fibrillation with RVR I48.91 Time Spent (min) 67
[2022-09-25 16:20] LABS: ABG PCO2 43.8 mmHg (35-45); ABG PH Result 7.28 (7.35-7.45); Arterial Blood Gas Hematocrit 38.5 % (37-47); Base Excess ABG -5.9 mmol/L (-2.0-2.0); Blood Gas Allen Test Pos; Blood Gas Operator Identificat MONRO; Blood Gas Sample Site Brachial, right; Blood Gas Sample Type Arterial; Blood Gas Tidal Volume 0.45; Carboxyhemoglobin 1.1 %THgb (0.4-20.1); HCO3 ABG 20.7 mmol/L (22-26); HGB O2 Sat 97.6 % (95-100); Ionized Calcium Level - ABG 1.4 mmol/L (1.1-1.4); Methemoglobin 0.9 % (0.4-1.5); Oxygen Device BIPAP; Oxygen Saturation ABG 99.6; Total Hemoglobin 12.6 g/dL (12-16)
[2022-09-25] MEDS: quetiapine 25 mg Tablet 50 MG PO (17:12)
--- NOTE | 2022-09-25 17:35 | P.PN_ITS ---
Subjective Subjective: Seen multiple times today. No acute events overnight. babysitter ABG appreciated. Today morning patient was on fentanyl of 25 and Precedex of 0.3. Awake and alert. R SBI of 55-82. Patient was successfully extubated to AVAPS. During the day patient has done well on AVAPS. Repeat ABG appreciated and FiO2 turned down. Patient's urine output more than 2 L without diuretics in last 24 hours. Heart rate has been between 100?115. Patient is awake and alert and able to have complete conversation. Did sit up at the side of the bed. Family at bedside. Tmax in last 24 hours 100.2 Fahrenheit. Vitals/I&O/Wt Last Vital Signs Temp 97.7 F 09/25/22 08:00 Pulse 115 H 09/25/22 17:00 Resp 17 09/25/22 17:00 BP 89/73 09/25/22 17:00 Pulse Ox 93 09/25/22 17:00 O2 Del Method 09/25/22 13:05 O2 Flow Rate 40 09/25/22 07:34 FiO2 35 09/25/22 16:48 09/25/22 09/25/22 09/25/22 06:59 14:59 22:59 Intake Total 561.975 / 1753.596 77.690 / 77.690 Output Total 1250 / 2125 350 / 350 Balance -688.025 / -371.404 77.690 / 77.690 -350 / -272.310 Weight last 48 hrs Weight 166.468 kg Weight 162.93 kg Physical Exam Narrative: Intubated sedated on mechanical ventilation. Well sedated today Const: COMMON NORMALS: patient oriented x3 HENMT: COMMON NORMALS: normocephalic, atraumatic and hearing grossly normal bilaterally HEAD & SCALP: normocephalic and atraumatic Resp: COMMON NORMALS: clear to auscultation bilaterally AUSCULTATION: clear to auscultation bilaterally OTHER: Diminished air entry bilaterally mostly in the left lower lobe Cardio: COMMON NORMALS: regular rate, regular rhythm, S1 normal heart sound present, S2 normal heart sound present, No gallops present (Cardio), No murmurs present (Cardio), No rub (Cardio) and Peripheral pulses 2+ throughout RATE: regular rate RHYTHM: regular rhythm HEART SOUNDS: S1 normal heart sound present and S2 normal heart sound present PERIPHERAL PULSES: Peripheral pulses 2+ throughout GI: COMMON NORMALS: Normal to inspection, nondistended, normoactive bowel sounds present, Soft to palpation, non-tender, No hepatosplenomegaly present and no masses AUSCULTATION: Yes normoactive bowel sounds PALPATION: Yes Soft to palpation and Yes No hepatosplenomegaly present RECTAL EXAM: deferred Extremity: COMMON NORMALS: no clubbing, cyanosis or edema and no pedal edema Neuro: COMMON NORMALS: patient oriented x3 Skin: OTHER: Blister present in right dorsum of the hand secondary to infiltration earlier in the admission which has popped now. Slight mottling present at periphery of both hands and toes. Pulses bilaterally palpable, peripheries warm, Slight generalized rash present on the chest maculopapular Urinary Catheter Management: Cha: Cath Placed During This Visit: yes, but has since been removed by the nurse Reason for Continuing Indwelling Catheter: Accurate Measurement of Urinary Output in Critically Ill Patients Urinary Catheter Date of Insertion: 09/23/22 Urinary Catheter Time of Insertion: 09:00 Date Urinary Catheter Removed: 09/23/22 Time Urinary Catheter Discontinued: 09:27 Data 09/25/22 02:55 09/25/22 02:55 Micro: Microbiology 09/24/22 10:30 Blood Culture - Preliminary Blood Gram positive cocci 09/24/22 10:20 Blood Culture - Preliminary Blood NEGATIVE TO DATE 09/19/22 15:55 Blood Culture - Final Blood NO GROWTH AFTER 5 DAYS A&P Assessment and plan (1) Acute respiratory failure with hypoxia and hypercapnia: (2) Sepsis: (3) Obstructive sleep apnea: (4) CHF (congestive heart failure): Qualifiers: Heart failure type: diastolic Heart failure chronicity: acute on chronic Qualified Code(s): I50.33 - Acute on chronic diastolic (congestive) heart failure (5) Dialysis patient: (6) Acute kidney injury: (7) Pneumonia: (8) Gram-positive bacteremia: (9) Fever: (10) Open wound of right hand: (11) GI bleed: Post EGD. Showing shallow ulcers requiring epinephrine. Continue with Protonix twice daily, Carafate ACHS. (12) Duodenal ulcer: (13) Atrial fibrillation with RVR: (14) Type 2 AMI (acute myocardial infarction): (15) Essential hypertension: (16) ARDS (adult respiratory distress syndrome): (17) Ventilator dependent: Extubated 09/25 (18) Shock: Resolved. (19) S/P bronchoscopy with bronchoalveolar lavage: On 09/13. Encountered high mucus in left lower lobe. Follow cultures. Patient desaturated during procedures to high 70s and low 80s but otherwise tolerated procedure well. (20) Flash pulmonary edema: (21) Hypertensive emergency: (22) Goals of care, counseling/discussion: Plan 42 year old female with known past medical history of hypertension noncompliant with antihypertensive medication, morbid obesity, was accepted as a direct transfer, she was initially admitted for the management of substernal chest pain, associated with acute onset of worsening shortness of breath. Assessment: ARDS: Hypoxic and hypercapnic respiratory failure: Extubated on 09/25 to AVAPS. Most likely in setting of decompensated congestive heart failure in setting of hypertensive emergency and acute kidney dysfunction in setting of obstructive sleep apnea and pneumonia. Repeat ABG in evening. Daily ABG and x-ray for now. Out of bed to chair/PT OT ST evaluation tomorrow. Maintain NG tube for now. Diastolic congestive heart failure: Echocardiogram done during hospitalization showed an EF of 60% grade 1 diastolic dysfunction. Patient overall 14 to 15 L negative. Making good amount of urine. Bumex as needed. Fluid restriction as possible. Pulmicort twice daily, ipratropium and Xopenex every 6 hourly. Appreciate pulmonology recommendations. Coag negative bacteremia/Staph epidermidis bacteremia: Repeat blood cultures from 09/24 again 1 out of 4 blood cultures positive. Removed femoral line. Send tip for Cx. Peripheral access. If needed can plan for mid line. For now continue with vancomycin and Zosyn. Fever: Continue to monitor. Could be secondary to atelectasis versus possibility of ulcer secondary to thrombophlebitis on right arm. Wound care open to air for today. Antibiotic as above. A-fib with RVR: Continue with amiodarone 4 mg twice daily for 7 days followed by 200 mg twice daily. Metoprolol 100 mg twice daily, Cardizem 90 mg every 6 hourly. Cannot rule out withdrawing to pain medication. Start on [place] 7.5 mg every 6 hourly as needed, Seroquel 50 mg twice daily. Type II AK: Heparin stopped recently because of GI bleed. Continue to monitor. Cardiology recommendations appreciated. Anemia: Secondary to GI bleed: Appreciate surgical recommendations. Duodenal ulcer managed through epinephrine. Continue Protonix twice daily, Carafate every 6. Monitor hemoglobin daily for now. Hemoglobin remained stable for next 48 hours we will plan to start on anticoagulation given A-fib with RVR. BRIDGETTE requiring hemodialysis: Post permacath placement. Good urine output for now. Hold off on dialysis or diuresis. Monitor BMP daily. Appreciate nephrology recommendations Analgesia: [place] 7.5 every 6 hourly as needed, Tylenol as needed Glycemic control: Hypoglycemia protocol Nutrition: Speech evaluation tomorrow. Start on tube feeds versus oral diet cur rently. CODE STATUS: Discussed in detail with patient mother and who is the DPOA at bedside. Patient is full code. We discussed need for dialysis for quick improvement. Family verbalized understanding and are agreeable. PUD prophylaxis: Protonix DVT prophylaxis: SCDs, Discharge planning: Likely will require LTAC placement given prolonged intubation. We will plan for possible extubation depending on clinical picture within next 48 hours. Continue with care at ICU 09/23: Care discussed in detail with patient's mother at bedside. We discussed regarding recent GI bleed, A-fib with RVR, improving ventilator settings StoCare becoming complicated by A-fib with RVR, GI bleed with anemia requiring transfusion, BRIDGETTE requiring dialysis and possible need of anticoagulation for ongoing AF with RVR for stroke prevention. All the questions were answered. Patient remains critically sick Attestations Medical Necessity Statement*: Requires further hospitalization for management of hypoxic and hypercapnic respiratory failure, postextubation on 09/25 in setting of severe obstructive sleep apnea, diastolic congestive heart failure, coag negative bacteremia, A-fib with RVR, GI bleed Procedures Arterial Line Size (Gauge): 20 Coding Level of Care Code Critical Care >/= 30 minutes Critical care time (in minutes): 90 The high probability of a clinically significant, sudden or life threatening deterioration, as referenced in this documentation, required my full and direct attention, intervention and personal management. The critical care time shown is in addition to time spent performing any reported separately billable procedures and includes the following: [x] Data and vital sign review and interpretation [x ] Patient assessment, examination and intervention [x] Medication orders and management [x] Patient/Family updates as able [x] Care Coordination and Documentation. Other Coding Information This patient has a high probability of clinically significant, sudden or life threatening deterioration of the patient's (neurologic al/pulmonary/cardiac/renal/ID/endocrine) systems required my full, direct attention, the highest level of physician preparedness for urgent intervention and personal management. I managed/supervised life or organ supporting interventions that required frequent physician assessment. I devoted my full attention in the ICU to the direct care of this patient for the period of time indicated above. Time I spent with family or surrogate(s) is included only if the patient was incapable of providing necessary information or participating in decision making. This time includes the following services provided: Telemetry review Mechanical Ventilation Hemodynamic interpretation, assessment and management Review and interpretation of CXR Review and interpretation of lab values Review and interpretation of microbiologic data and culture results Review of medications and administration Review and interpretation of Nutrition requirements and management Discussion of management with other consultants and services Clinical update to family members Diagnoses Acute respiratory failure with hypoxia and hypercapnia J96.01; J96.02 Sepsis A41.9 Obstructive sleep apnea G47.33 CHF (congestive heart failure) I50.33 Heart failure type: diastolic Heart failure chronicity: acute on chronic Dialysis patient Z99.2 Acute kidney injury N17.9 Pneumonia J18.9 Gram-positive bacteremia R78.81 Fever R50.9 Open wound of right hand S61.401A GI bleed K92.2 Duodenal ulcer K26.9 Atrial fibrillation with RVR I48.91 Type 2 AMI (acute myocardial infarction) I21.A1 Essential hypertension I10 ARDS (adult respiratory distress syndrome) J80 Ventilator dependent Z99.11 Shock R57.9 S/P bronchoscopy with bronchoalveolar lavage Z98.890 Flash pulmonary edema J81.0 Hypertensive emergency I16.1 Goals of care, counseling/discussion Z71.89
--- NOTE | 2022-09-25 19:00 | PC.NURSE ---
MAR Fentanyl and precedex not administering at beginning of shift while MAR displayed running. MAR updated to show paused.
[2022-09-25 20:20] LABS: Glucose Point of Care 101 mg/dL (70-110)
[2022-09-25] MEDS: atorvastatin 40 mg Tablet PO (20:21)
[2022-09-25] MEDS: sodium chloride 0.9% 1,000 ML 125 ML IV (20:23)
--- NOTE | 2022-09-25 21:00 | PC.NURSE ---
Blood Pressure Patient's blood pressure trending soft with a current pressure of 94/72 MAP 79. 100 mg metoprolol and 90 mg cardizem PO due at 2100. Message to nurse to hold evening dose of cardizem from Dr. Rodríguez. Dr. Cabrera contacted and order received to hold metoprolol dose.
[2022-09-26] VITALS (40 sets, daily range): BP systolic 106–160; BP diastolic 60–103; PULSE 80–132; RESP 17–27; TEMP 36.6–37.6; O2SAT 91–99
[2022-09-26] MEDS: piperacillin-tazobactam 3.375 GM in sodium chloride 0.9% (plus) 50 ML IV (00:12)
--- NOTE | 2022-09-26 00:19 | PC.NURSE ---
Addendum entered by DILEEP Alvarado 09/26/22 00:21: Wasted 80 mL fentanyl with SHITAL Benavidez. Original Note: Fentanyl Wast 80 ml of fentanyl wasted with SHITAL Stern.
[2022-09-26 00:22] LABS: Glucose Point of Care 100 mg/dL (70-110)
[2022-09-26] MEDS: ipratropium 0.5 mg/2.5 mL Neb INHALATION ×4 (02:26→20:22)
[2022-09-26] MEDS: levalbuterol 0.63 mg/3 mL Neb INHALATION ×4 (02:26→20:22)
--- NOTE | 2022-09-26 02:45 | PC.NURSE ---
This nurse called Dr. Duff regarding 03:05 dose of cardizem due to low blood pressures. Physician stated to hold medication.
[2022-09-26 04:41] LABS: ABG PCO2 52.6 mmHg (35-45); ABG PH Result 7.21 (7.35-7.45); Arterial Blood Gas Hematocrit 35.8 % (37-47); Base Excess ABG -7.1 mmol/L (-2.0-2.0); Blood Gas Allen Test Pos; Blood Gas Sample Type Arterial; Carboxyhemoglobin 1.5 %THgb (0.4-20.1); HGB O2 Sat 94.7 % (95-100); Ionized Calcium Level - ABG 1.3 mmol/L (1.1-1.4); Methemoglobin 0.7 % (0.4-1.5); Oxygen Saturation ABG 96.8; PO2 ABG 84.7 mmHg (80.0-100.0); Potassium Level - ABG 3.8 mmol/L (3.5-5.0); Total Hemoglobin 11.7 g/dL (12-16)
[2022-09-26 04:42] LABS: Basophils # 0.1 10^3/uL (0.0-0.1); Basophils % 0.7 %; Eosinophils # 0.4 10^3/uL (0.0-0.8); Eosinophils % 4.6 %; Hematocrit 36.5 % (37.0-47.0); Hemoglobin 11.2 g/dL (11.5-15.3); Lymphocytes # 1.5 10^3/uL (0.8-4.8); Lymphocytes % 19.4 %; Mean Corpuscular HGB Conc 30.7 g/dL (30.0-36.0); Mean Corpuscular Hemoglobin 27.7 pg (28.0-34.0); Mean Corpuscular Volume 90.3 fl (81-99); Mean Platelet Volume 10.1 fL (7.4-10.4); Monocytes # 0.8 10^3/uL (0.2-0.9); Monocytes % 10.2 %; Neutrophils # 4.82 10^3/uL (1.8-7.7); Neutrophils % 63.5 %; Nucleated Red Blood Cells % 0 %; Platelet Count 175 10^3/cmm (130-400); Red Blood Count 4.04 10^6/uL (4.1-5.3); Red Cell Distribution Width 13.8 % (12.1-15.1); White Blood Count 7.6 10^3/uL (4.0-10.0)
[2022-09-26] MEDS: sucralfate 1 gm Tablet PO ×4 (04:44→23:38)
[2022-09-26 04:46] LABS: Alveolar-Arterial Oxygen Gradi 12.6 mmHg (5-10); Blood Gas Sample Site Radial, left; Oxygen Device BIPAP
[2022-09-26 05:04] LABS: Alanine Aminotransferase 31 U/L (0-33); Albumin Level 3.7 g/dL (3.5-5.2); Alkaline Phosphatase 56 U/L (35-105); Anion Gap 21.1 (5-19); Aspartate Amino Transferase 31 U/L (0-32); Blood Urea Nitrogen 61 mg/dL (6-20); Calcium 9.3 mg/dL (8.5-10.5); Carbon Dioxide 20 mmol/L (22-29); Chloride 104 mmol/L (98-107); Glomerular Filtration Rate 9.9 mL/min (90-130); Glucose 100 mg/dL (65-115); Osmolality Calculated 309 mOsm/kg (285-295); Potassium 4.1 mmol/L (3.5-5.1); Sodium 141 mmol/L (136-145); Total Bilirubin 0.4 mg/dL (0.15-1.2); Total Protein 6.7 g/dL (6.6-8.7)
[2022-09-26 05:06] LABS: Vancomycin Random 20.7 ug/mL (20.0-40.0)
[2022-09-26 07:13] LABS: Glucose Point of Care 104 mg/dL (70-110)
[2022-09-26] MEDS: budesonide 0.5 mg/2 mL Neb INHALATION ×2 (07:26→20:22)
[2022-09-26] MEDS: pantoprazole 40 mg SDV IVP ×2 (08:40→17:16)
[2022-09-26] MEDS: levothyroxine 100 mcg SDV 50 MCG IVP (08:40)
[2022-09-26] MEDS: quetiapine 25 mg Tablet 50 MG PO ×2 (08:41→17:16)
[2022-09-26] MEDS: heparin 5,000 unit/mL INJ 1 mL 5000 UNIT SUBCUT ×3 (08:41→23:38)
[2022-09-26] MEDS: HYDROcodone-acetaminophen 7.5-325 mg Tablet 1 TAB PO (08:41)
[2022-09-26] MEDS: amiodarone 200 mg Tablet 400 MG PO ×2 (08:46→20:10)
--- NOTE | 2022-09-26 09:47 | PM.PN ---
Subjective Subjective: Patient extubated on 40% FiO2 on BiPAP Medications: Reviewed: Yes Vitals/I&O/Wt Last Vital Signs Temp 98.4 F 09/26/22 08:00 Pulse 129 H 09/26/22 08:00 Resp 20 H 09/26/22 08:00 BP 113/86 09/26/22 08:00 Pulse Ox 98 09/26/22 08:00 O2 Del Method 09/26/22 07:20 O2 Flow Rate 40 09/25/22 07:34 FiO2 35 09/26/22 07:32 09/25/22 09/26/22 09/26/22 22:59 06:59 14:59 Intake Total 179.379 / 497.856 5393 / 1307.069 Output Total 500 / 500 300 / 800 Balance -320.621 / -242.931 750 / 507.069 Weight last 48 hrs Weight 166.468 kg Physical Exam Narrative: on BIPAP , NO DISTRES Urinary Catheter Management: Cha: Cath Placed During This Visit: yes, but has since been removed by the nurse Reason for Continuing Indwelling Catheter: Accurate Measurement of Urinary Output in Critically Ill Patients Urinary Catheter Date of Insertion: 09/23/22 Urinary Catheter Time of Insertion: 09:00 Date Urinary Catheter Removed: 09/23/22 Time Urinary Catheter Discontinued: 09:27 Data 09/26/22 04:25 09/26/22 04:25 Micro: Microbiology 09/24/22 10:30 Blood Culture - Preliminary Blood Gram positive cocci 09/24/22 10:20 Blood Culture - Preliminary Blood NEGATIVE TO DATE A&P Assessment and plan (1) Acute kidney injury: Plan 1. Acute kidney injury. Different includes contrast nephropathy, sepsis, acute interstitial nephritis, hemodynamic. . Due to high O2 requirement and worsening renal function patient was started on HD. Would like to keep her on a negative fluid balance, Eval daily for hD needs. baseline creatinine was normal prior to admission at 0.5. Status post permacath placement due to no improvement in renal function , -Pt extubated , on BIPAP , 40 % fio2 , UOP lower today , deanna do HD today 2. Volume overload: on HD , , 3. Primary respiratory acidosis, hypercapneic respiratory failure on ventilator, 40 percent FiO2% fio2 4. sepsis with pneumonia 6. HTN Attestations Medical Necessity Statement*: Requires further hospitalization for management of hypoxic and hypercapnic respiratory failure, Procedures Arterial Line Size (Gauge): 20 Coding Level of Care Code Acute Code for Chg Fwd Diagnoses Acute kidney injury N17.9
[2022-09-26 09:53] LABS: ABG PH Result 7.26 (7.35-7.45); Arterial Blood Gas Hematocrit 36.1 % (37-47); Base Excess ABG -6.8 mmol/L (-2.0-2.0); Blood Gas Allen Test Pos; Blood Gas Operator Identificat GD; Blood Gas Sample Site Radial, right; Blood Gas Sample Type Arterial; Carboxyhemoglobin 1.4 %THgb (0.4-20.1); HCO3 ABG 20.2 mmol/L (22-26); HGB O2 Sat 97.1 % (95-100); Ionized Calcium Level - ABG 1.3 mmol/L (1.1-1.4); Methemoglobin 0.6 % (0.4-1.5); Oxygen Device BIPAP; Oxygen Saturation ABG 99.2; Potassium Level - ABG 3.9 mmol/L (3.5-5.0); Total Hemoglobin 11.8 g/dL (12-16)
[2022-09-26] MEDS: dilTIAZem 100 MG in sodium chloride 0.9% (add-van) 100 ML IV (10:20)
[2022-09-26 12:06] LABS: Glucose Point of Care 104 mg/dL (70-110)
[2022-09-26] MEDS: midodrine 5 mg TABLET 10 MG PO (12:26)
[2022-09-26] MEDS: heparin, porcine 1,000 unit/mL INJ 10 mL 10000 UNIT HE (12:37)
--- NOTE | 2022-09-26 13:54 | P.TS_ITS ---
Transfer Summary Providers Date of Admission: 09/06/22 10:41 Date of Discharge/Transfer: 09/26/22 Attending Provider at Admission: Davey Paiz Attending Provider at Transfer: Derek Rodríguez MD Consults: Pulmonology: Dr. Dobbs Telemetry nephrology: Dr. Barbosa Surgery: Dr. Prescott Cardiology: Dr. Cowart Primary Care Provider: Isacc Cisneros Transfer Plans: Anticipated date of transfer: 09/26/22 . Receiving Facility: [facility] . Diagnoses at Discharge Discharge Diagnosis (1) Acute kidney injury: Status: Acute (2) Gram-positive bacteremia: Status: Acute (3) Type 2 AMI (acute myocardial infarction): Status: Acute (4) Tachycardia, unspecified: Status: Acute (5) Duodenal ulcer: Status: Acute (6) Atrial fibrillation with RVR: Status: Acute (7) GI bleed: Status: Acute (8) Open wound of right hand: Status: Acute (9) Ventilator dependent: Status: Acute (10) Goals of care, counseling/discussion: Status: Acute (11) Fever: Status: Acute (12) Dialysis patient: Status: Acute (13) Shock: Status: Acute (14) S/P bronchoscopy with bronchoalveolar lavage: Status: Acute (15) ARDS (adult respiratory distress syndrome): Status: Acute (16) Acute respiratory failure with hypoxia and hypercapnia: Status: Acute (17) Obstructive sleep apnea: Status: Suspected (18) Sepsis: Status: Acute (19) Pneumonia: Status: Acute Reason for Visit Reason for Visit hypertensive urgency Brief History: History as per HPI: Initially transferred to our hospital from outside hospital on 09/06: September Sung is a 42 year old female with known past medical history of hypertension noncompliant with antihypertensive medication, morbid obesity, was accepted as a direct transfer, she was initially admitted for the management of substernal chest pain, associated with acute onset of worsening shortness of breath. When she arrived in the ER she was found to be in hypertensive emergency, she was started on nitroprusside drip, CTA chest was done which ruled out pulmonary embolism, showed pulmonary vascular congestion, troponin trend was unremarkable, x-ray chest: Suggestive of pulmonary vascular congestion When she arrived here in the ICU she was still complaining of chest tightness as well as shortness of breath, Blood pressure was extremely uncontrolled systolic blood pressure was in 200 as well as diastolic in 130s Maximum noted blood pressure was:244/136. She was started on nicardipine drip, as well as oral antihypertensive. Hospital Course Hospital Course Patient was under the ICU for further evaluation and management of hypertensive urgency leading to flash pulmonary edema. At first she was started on nicardipine drip. During hospitalization after starting of nicardipine drip patient developed acute hypotension within 24 hours along with respiratory failure. Eventually patient got intubated on 09/09 secondary to respiratory failure. Patient's hospitalization got complicated by her developing ARDS in setting of morbid obesity with undiagnosed severe obstructive sleep apnea for which she remained intubated for over 2-1/2 weeks during which time there was difficulty in maintaining oxygenation and ventilation given requirement of high peak pressures. Patient ventilation improved once tidal volume was increased up to 450 and PEEP was increased up to 22. Patient also developed acute kidney injury along with oliguria for which nephrology was consulted and she underwent hemodialysis. At one point patient was requiring regular hemodialysis on a daily basis. Gradually patient responded well to the treatment and she was around net 15 L negative. Patient's urine output has been improving and renal functions have remained stable. Last day of dialysis on 09/26. Eventually after getting patient net negative substantially patient's PEEP and FiO2 was gradually reduced and eventually she was extubated on 09/25 to BiPAP and AVAPS. There were concerns for PE given difficulty in oxygenation hence was started on heparin drip in between as well. Patient during this hospitalization also developed GI bleed for which surgery was consulted and she underwent endoscopy on 09/21 where she was found to have shallow duodenal ulcers which were treated by epinephrine. Both that her hemoglobin has remained stable and she has been managed with IV Protonix and Carafate. Patient also developed a shallow ulcer on the right secondary to infiltration of Zosyn which is being managed currently with Hydrofera Blue and OPTi foam. Patient might require debridement of the wound if it does not improve. Patient also developed atrial fibrillation with rapid ventricular response for which she has been managed with oral amiodarone along with IV Cardizem. Echocardiogram was done which is consistent with diastolic heart failure. During hospitalization patient has been on IV antibiotics on and off. Her most recent blood cultures from 09/24 was 1 out of 4 bottles positive for GPC's. Femoral line was removed on 09/25. Arterial line was removed around a week ago. Cha catheter was changed on 09/22. Given need of aggressive pulmonary rehab in setting of severe obstructive sleep apnea from morbid obesity, diastolic heart failure requiring occasional dialysis in setting of acute kidney injury safe discharge planning was discussed in detail with the family and possible transfer to LTAC was discussed because of all of the above. Patient has been transported to LTAC after being accepted in hemodynamically stable condition. Patient is on BiPAP, awake and alert with Cardizem drip. Physical Exam Narrative: Intubated sedated on mechanical ventilation. Well sedated today Const: COMMON NORMALS: patient oriented x3 HENMT: COMMON NORMALS: normocephalic, atraumatic and hearing grossly normal bilaterally HEAD & SCALP: normocephalic and atraumatic Resp: COMMON NORMALS: clear to auscultation bilaterally AUSCULTATION: clear to auscultation bilaterally OTHER: Diminished air entry bilaterally mostly in the left lower lobe Cardio: COMMON NORMALS: regular rate, regular rhythm, S1 normal heart sound present, S2 normal heart sound present, No gallops present (Cardio), No murmurs present (Cardio), No rub (Cardio) and Peripheral pulses 2+ throughout RATE: regular rate RHYTHM: regular rhythm HEART SOUNDS: S1 normal heart sound present and S2 normal heart sound present PERIPHERAL PULSES: Peripheral pulses 2+ throughout GI: COMMON NORMALS: Normal to inspection, nondistended, normoactive bowel sounds present, Soft to palpation, non-tender, No hepatosplenomegaly present and no masses AUSCULTATION: Yes normoactive bowel sounds PALPATION: Yes Soft to palpation and Yes No hepatosplenomegaly present RECTAL EXAM: deferred Extremity: COMMON NORMALS: no clubbing, cyanosis or edema and no pedal edema Neuro: COMMON NORMALS: patient oriented x3 Skin: OTHER: Blister present in right dorsum of the hand secondary to infiltration earlier in the admission which has popped now. Slight mottling present at periphery of both hands and toes. Pulses bilaterally palpable, peripheries warm, Slight generalized rash present on the chest maculopapular Urinary Catheter Management: Cha: Cath Placed During This Visit: yes, but has since been removed by the nurse Reason for Continuing Indwelling Catheter: Accurate Measurement of Urinary Output in Critically Ill Patients Urinary Catheter Date of Insertion: 09/23/22 Urinary Catheter Time of Insertion: 09:00 Date Urinary Catheter Removed: 09/23/22 Time Urinary Catheter Discontinued: 09:27 TS Data Studies Completed and Pending Pending at discharge Category Date Time Status XR chest 1V portable 82915 Q48H Exams 09/27/22 06:00 Ordered XR chest 1V portable [id number] Q48H Exams 09/29/22 06:00 Ordered ABG FULL [Arterial Blood Gas Full] AM LABS Lab 09/25/22 04:00 Results ABG FULL [Arterial Blood Gas Full] AM LABS Lab 09/27/22 04:00 Ordered Blood Culture Stat Lab 09/19/22 15:55 Results Blood Culture Stat Lab 09/24/22 10:30 Results CDIFF [Clostridioides Difficile PCR] Routine Lab 09/20/22 02:56 Results Catheter Tip Culture Routine Lab 09/25/22 18:20 Received Clostridioides Difficile PCR Routine Lab 09/20/22 02:56 Results Complete Blood Count w/Auto AM LABS Lab 09/27/22 04:00 Ordered Complete Blood Count w/Auto AM LABS Lab 09/28/22 04:00 Ordered Complete Blood Count w/Auto AM LABS Lab 09/29/22 04:00 Ordered Comprehensive Metabolic Panel AM LABS Lab 09/27/22 04:00 Ordered Comprehensive Metabolic Panel AM LABS Lab 09/28/22 04:00 Ordered Comprehensive Metabolic Panel AM LABS Lab 09/29/22 04:00 Ordered Enteric Bacterial Panel by PCR Routine Lab 09/20/22 02:56 Results Enteric Parasite Panel by PCR Routine Lab 09/20/22 02:56 Results Immunochemical Fecal OCB Routine Lab 09/20/22 02:56 Results Lactoferrin Routine Lab 09/20/22 02:56 Results Occult Blood Stool [Immunochemical Fecal OCB] Stat Lab 09/20/22 02:56 Results Labs from last 24 hours 09/26/22 09/26/22 09/26/22 12:03 09:35 04:30 WBC RBC Hgb Hct MCV MCH MCHC RDW Plt Count MPV Neut % (Auto) Lymph % (Auto) [place] % (Auto) Eos % (Auto) Baso % (Auto) Neut # (Auto) Lymph # (Auto) [place] # (Auto) Eos # (Auto) Baso # (Auto) Nucleated RBC % (auto) Nucleated RBCs # Specimen Type Arterial Arterial Sample Site Radial, right Radial, left ABG pH 7.26 L 7.21 L ABG pCO2 45.0 52.6 H ABG pO2 115.0 H 84.7 ABG HCO3 20.2 L 21.0 L ABG O2 Saturation 99.2 96.8 ABG Base Excess -6.8 L -7.1 L [place] Test Pos Pos A-a O2 Gradient Not Reportable 12.6 H Hematocrit 36.1 L 35.8 L Hgb O2 Saturation 97.1 94.7 L Carboxyhemoglobin 1.4 1.5 Methemoglobin 0.6 0.7 Total Hemoglobin 11.8 L 11.7 L Sodium 142.0 143.0 Potassium 3.9 3.8 Glucose 105.0 103.0 Ionized Calcium 1.3 1.3 O2 Delivery Device Bipap Bipap FiO2 35.0 Tidal Volume PEEP 10.0 10.0 Parachute/Combatant Diver Officer ID Gd [id number] Chloride Carbon Dioxide Anion Gap BUN Creatinine GFR Calculation POC Glucose 104 Calculated Osmolality Calcium Total Bilirubin AST ALT Alkaline Phosphatase Total Protein Albumin Globulin Random Vancomycin 09/26/22 09/26/22 09/26/22 04:25 04:25 04:25 WBC 7.6 RBC 4.04 L Hgb 11.2 L Hct 36.5 L MCV 90.3 MCH 27.7 L MCHC 30.7 RDW 13.8 Plt Count 175 MPV 10.1 Neut % (Auto) 63.5 Lymph % (Auto) 19.4 [place] % (Auto) 10.2 Eos % (Auto) 4.6 Baso % (Auto) 0.7 Neut # (Auto) 4.82 Lymph # (Auto) 1.5 [place] # (Auto) 0.8 Eos # (Auto) 0.4 Baso # (Auto) 0.1 Nucleated RBC % (auto) 0 Nucleated RBCs # 0.0 Specimen Type Sample Site ABG pH ABG pCO2 ABG pO2 ABG HCO3 ABG O2 Saturation ABG Base Excess [place] Test A-a O2 Gradient Hematocrit Hgb O2 Saturation Carboxyhemoglobin Methemoglobin Total Hemoglobin Sodium 141 Potassium 4.1 Glucose 100 Ionized Calcium O2 Delivery Device FiO2 Tidal Volume PEEP Parachute/Combatant Diver Officer ID Chloride 104 Carbon Dioxide 20 L Anion Gap 21.1 H BUN 61 H Creatinine 4.8 H GFR Calculation 9.9 L POC Glucose Calculated Osmolality 309 H Calcium 9.3 Total Bilirubin 0.4 AST 31 ALT 31 Alkaline Phosphatase 56 Total Protein 6.7 Albumin 3.7 Globulin 3.0 Random Vancomycin 20.7 09/26/22 09/26/2223 03:56 00:11 20:17 WBC RBC Hgb Hct MCV MCH MCHC RDW Plt Count MPV Neut % (Auto) Lymph % (Auto) [place] % (Auto) Eos % (Auto) Baso % (Auto) Neut # (Auto) Lymph # (Auto) [place] # (Auto) Eos # (Auto) Baso # (Auto) Nucleated RBC % (auto) Nucleated RBCs # Specimen Type Sample Site ABG pH ABG pCO2 ABG pO2 ABG HCO3 ABG O2 Saturation ABG Base Excess [place] Test A-a O2 Gradient Hematocrit Hgb O2 Saturation Carboxyhemoglobin Methemoglobin Total Hemoglobin Sodium Potassium Glucose Ionized Calcium O2 Delivery Device FiO2 Tidal Volume PEEP Parachute/Combatant Diver Officer ID Chloride Carbon Dioxide Anion Gap BUN Creatinine GFR Calculation POC Glucose 104 100 101 Calculated Osmolality Calcium Total Bilirubin AST ALT Alkaline Phosphatase Total Protein Albumin Globulin Random Vancomycin 09/25/22 16:07 WBC RBC Hgb Hct MCV MCH MCHC RDW Plt Count MPV Neut % (Auto) Lymph % (Auto) [place] % (Auto) Eos % (Auto) Baso % (Auto) Neut # (Auto) Lymph # (Auto) [place] # (Auto) Eos # (Auto) Baso # (Auto) Nucleated RBC % (auto) Nucleated RBCs # Specimen Type Arterial Sample Site Brachial, right ABG pH 7.28 L ABG pCO2 43.8 ABG pO2 133.0 H ABG HCO3 20.7 L ABG O2 Saturation 99.6 ABG Base Excess -5.9 L [place] Test Pos A-a O2 Gradient 12.0 H Hematocrit 38.5 Hgb O2 Saturation 97.6 Carboxyhemoglobin 1.1 Methemoglobin 0.9 Total Hemoglobin 12.6 Sodium 139.0 Potassium 4.0 Glucose 105.0 Ionized Calcium 1.4 O2 Delivery Device Bipap FiO2 40.0 Tidal Volume 0.45 PEEP 10.0 Parachute/Combatant Diver Officer ID [place] Chloride Carbon Dioxide Anion Gap BUN Creatinine GFR Calculation POC Glucose Calculated Osmolality Calcium Total Bilirubin AST ALT Alkaline Phosphatase Total Protein Albumin Globulin Random Vancomycin Completed Studies During Hospitalization Category Date Time Status CTA chest [CT angio chest PE protcl 13975] Routine Cat Scan 09/13/22 10:26 Completed CXRP [XR chest 1V portable [id number]] Routine Exams 09/08/22 22:31 Completed CXRP [XR chest 1V portable [id number]] Routine Exams 09/11/22 13:03 Completed CXRP [XR chest 1V portable 19605] Routine Exams 09/21/22 11:12 Completed CXRP [XR chest 1V portable 14450] Stat Exams 09/20/22 08:47 Completed XR KUB portable [id number] Urgent Exams 09/20/22 02:58 Completed XR KUB portable [id number] Urgent Exams 09/20/22 08:46 Completed XR chest 1V portable [id number] Q48H Exams 09/19/22 06:00 Completed XR chest 1V portable [id number] Q48H Exams 09/21/22 06:00 Completed XR chest 1V portable [id number] Routine Exams 09/07/22 17:10 Completed XR chest 1V portable [id number] Routine Exams 09/12/22 09:00 Completed XR chest 1V portable [id number] Routine Exams 09/14/22 09:06 Completed XR chest 1V portable [id number] Routine Exams 09/15/22 07:04 Completed XR chest 1V portable [id number] Routine Exams 09/17/22 09:12 Completed XR chest 1V portable [id number] Routine Exams 09/22/22 08:19 Completed XR chest 1V portable [id number] Routine Exams 09/23/22 06:00 Completed XR chest 1V portable [id number] Routine Exams 09/25/22 03:56 Completed XR chest 1V portable [id number] Stat Exams 09/09/22 03:55 Completed XR chest 1V portable [id number] Stat Exams 09/11/22 08:34 Completed Pathology: Surgical [PTH] Routine Pth 09/21/22 11:03 [place] [id number] Stat Ultrasound 09/08/22 20:22 [place] [id number] Stat Ultrasound 09/21/22 11:10 [place] [id number] Stat Ultrasound 09/08/22 20:31 Completed CV. echo limited [id number] Routine Ultrasound 09/23/22 06:00 Completed CV. echo wo/w contrast [id number] Routine Ultrasound 09/06/22 10:45 Completed US renal BI* [id number] Routine Ultrasound 09/09/22 05:33 Completed Laboratory Last Values WBC 7.6 10^3/uL (4.0-10.0) 09/26/22 04:25 RBC 4.04 10^6/uL (4.1-5.3) L 09/26/22 04:25 Hgb 11.2 g/dL (11.5-15.3) L 09/26/22 04:25 Hct 36.5 % (37.0-47.0) L 09/26/22 04:25 MCV 90.3 fl (81-99) 09/26/22 04:25 MCH 27.7 pg (28.0-34.0) L 09/26/22 04:25 MCHC 30.7 g/dL (30.0-36.0) 09/26/22 04:25 RDW 13.8 % (12.1-15.1) 09/26/22 04:25 Plt Count 175 10^3/cmm (130-400) 09/26/22 04:25 MPV 10.1 fL (7.4-10.4) 09/26/22 04:25 Neut % (Auto) 63.5 % 09/26/22 04:25 Lymph % (Auto) 19.4 % 09/26/22 04:25 [place] % (Auto) 10.2 % 09/26/22 04:25 Eos % (Auto) 4.6 % 09/26/22 04:25 Baso % (Auto) 0.7 % 09/26/22 04:25 Neut # (Auto) 4.82 10^3/uL (1.8-7.7) 09/26/22 04:25 Lymph # (Auto) 1.5 10^3/uL (0.8-4.8) 09/26/22 04:25 [place] # (Auto) 0.8 10^3/uL (0.2-0.9) 09/26/22 04:25 Eos # (Auto) 0.4 10^3/uL (0.0-0.8) 09/26/22 04:25 Baso # (Auto) 0.1 10^3/uL (0.0-0.1) 09/26/22 04:25 Nucleated RBC % (auto) 0 % 09/26/22 04:25 Nucleated RBCs # 0.0 /100WBC 09/26/22 04:25 PT 14.40 SECONDS (12.1-14.9) 09/22/22 01:24 INR 1.08 (0.8-1.2) 09/22/22 01:24 APTT 43.5 SECONDS (23.9-36.7) H 09/20/22 03:10 D-Dimer 3.78 ug/mIFEU (0-0.59) H 09/15/22 17:57 Specimen Type Arterial 09/26/22 09:35 Sample Site Radial, right 09/26/22 09:35 ABG pH 7.26 (7.35-7.45) L 09/26/22 09:35 ABG pCO2 45.0 mmHg (35-45) 09/26/22 09:35 ABG pO2 115.0 mmHg (80.0-100.0) H 09/26/22 09:35 ABG HCO3 20.2 mmol/L (22-26) L 09/26/22 09:35 ABG O2 Saturation 99.2 09/26/22 09:35 ABG Base Excess -6.8 mmol/L (-2.0-2.0) L 09/26/22 09:35 [place] Test Pos 09/26/22 09:35 A-a O2 Gradient Not Reportable 09/26/22 09:35 Hematocrit 36.1 % (37-47) L 09/26/22 09:35 Hgb O2 Saturation 97.1 % (95-100) 09/26/22 09:35 Carboxyhemoglobin 1.4 %THgb (0.4-20.1) 09/26/22 09:35 Methemoglobin 0.6 % (0.4-1.5) 09/26/22 09:35 Total Hemoglobin 11.8 g/dL (12-16) L 09/26/22 09:35 Sodium 142.0 mmol/L (131-143) 09/26/22 09:35 Potassium 3.9 mmol/L (3.5-5.0) 09/26/22 09:35 Glucose 105.0 mg/dL (70-115) 09/26/22 09:35 Ionized Calcium 1.3 mmol/L (1.1-1.4) 09/26/22 09:35 Respiration Rate 22.0 % 09/25/22 04:00 O2 Delivery Device Bipap 09/26/22 09:35 O2 Liters/Min 7.0 % 09/08/22 15:57 SIMV 18.0 09/20/22 04:00 FiO2 35.0 % 09/26/22 04:30 Tidal Volume 0.45 09/25/22 16:07 PEEP 10.0 cmH20 09/26/22 09:35 Specimen Drawn By Issa 09/25/22 04:00 Parachute/Combatant Diver Officer ID Gd 09/26/22 09:35 Sodium 141 mmol/L (136-145) 09/26/22 04:25 Potassium 4.1 mmol/L (3.5-5.1) 09/26/22 04:25 Chloride 104 mmol/L (98-107) 09/26/22 04:25 Carbon Dioxide 20 mmol/L (22-29) L 09/26/22 04:25 Anion Gap 21.1 (5-19) H 09/26/22 04:25 BUN 61 mg/dL (6-20) H 09/26/22 04:25 Creatinine 4.8 mg/dL (0.5-0.9) H 09/26/22 04:25 GFR Calculation 9.9 mL/min (90-130) L 09/26/22 04:25 Glucose 100 mg/dL (65-115) 09/26/22 04:25 POC Glucose 104 mg/dL (70-110) 09/26/22 12:03 Estimat Average Glucose 114 09/12/22 03:59 Hemoglobin A1c 5.6 % (4.0-6.0) 09/12/22 03:59 Calculated Osmolality 309 mOsm/kg (285-295) H 09/26/22 04:25 Lactic Acid 1.6 mmol/L (0.5-2.2) 09/08/22 09:06 Lactate 0.9 mmol/L (0.5-2.2) 09/22/22 01:24 Calcium 9.3 mg/dL (8.5-10.5) 09/26/22 04:25 Phosphorus 3.6 mg/dL (2.5-4.5) 09/24/22 03:55 Magnesium 1.8 mg/dL (1.7-2.3) 09/24/22 03:55 Iron 46 ug/dL (37-145) 09/11/22 05:57 TIBC 271 mcg/dl 09/11/22 05:57 % Saturation 16.9 % (20-50) L 09/11/22 05:57 Unsat Iron Binding 225 ug/dL (112-347) 09/11/22 05:57 Total Bilirubin 0.4 mg/dL (0.15-1.2) 09/26/22 04:25 AST 31 U/L (0-32) 09/26/22 04:25 ALT 31 U/L (0-33) 09/26/22 04:25 Alkaline Phosphatase 56 U/L (35-105) 09/26/22 04:25 Creatine Kinase 225 U/L (26-192) H 09/10/22 03:30 CK-MB (CK-2) 14.9 ng/mL (0-5.34) H 09/10/22 03:30 CK-MB (CK-2) Rel Index 6.6 % (0.0-10.4) 09/10/22 03:30 Troponin T Gen 5 ng/L 162 ng/L (0-10) H* 09/22/22 09:00 Troponin T Baseline 120 ng/L (0-10) H* 09/21/22 10:15 Troponin T 120 Minute 130.9 ng/L (0-10) H 09/21/22 11:40 Delta Troponin T 10.9 ABS# (0-10) H* 09/21/22 11:40 Troponin T Hi Sens 6Hr 174.5 ng/L (0-10) H 09/21/22 16:16 Troponin T Hi Sens 6Hr Delta 54.5 ng/L (0-12) H* 09/21/22 16:16 C-Reactive Protein 17.4 mg/L (0.0-4.9) H 09/23/22 04:35 NT-Pro-B Natriuret Pep 2791 pg/mL (0-125) H 09/23/22 04:35 Total Protein 6.7 g/dL (6.6-8.7) 09/26/22 04:25 Albumin 3.7 g/dL (3.5-5.2) 09/26/22 04:25 Globulin 3.0 g/dL (1.3-4.6) 09/26/22 04:25 Triglycerides 313 mg/dL (0-150) H 09/12/22 03:59 Cholesterol 140 mg/dL (0-200) 09/12/22 03:59 LDL Cholesterol, Calc 49 mg/dL (50-129) L 09/12/22 03:59 Total VLDL Cholesterol 63 mg/dL (0-30) H 09/12/22 03:59 HDL Cholesterol 28 mg/dL (60-100) L 09/12/22 03:59 Cholesterol/HDL Ratio 5.00 mg/dL (0.0-4.40) H 09/12/22 03:59 Vitamin B12 514 pg/mL (232-1245) 09/11/22 05:57 Folate 8.9 ng/mL (4.8-37.3) 09/11/22 05:57 Procalcitonin 2.85 ng/mL (0-0.5) H 09/23/22 04:35 TSH 13.22 uIU/mL (0.27-4.20) H 09/22/22 14:01 Free T4 1.54 ng/dL (0.82-1.77) 09/22/22 14:01 Free T3 2.1 PG/ML (2.0-4.4) 09/22/22 14:01 Random Cortisol 2.67 ug/dL (2.47-19.5) 09/15/22 02:38 Urine Color Yellow (Yellow) 09/17/22 12:15 Urine Appearance Hazy (CLEAR) A 09/17/22 12:15 Urine pH 8 (5-7) H 09/17/22 12:15 Ur Specific [place] 1.010 (1.005-1.030) 09/17/22 12:15 Urine Protein Trace (Negative) 09/17/22 12:15 Urine Glucose (UA) Norm (Normal) 09/17/22 12:15 Urine Ketones Negative (Negative) 09/17/22 12:15 Urine Blood 3+ (Negative) H 09/17/22 12:15 Urine Nitrate Negative (Negative) 09/17/22 12:15 Urine Bilirubin Neg (Negative) 09/17/22 12:15 Prot Sulfosalicylic Acd Positive (Negative) 09/17/22 12:15 Urine Urobilinogen Norm mg/dL (Negative) 09/17/22 12:15 Ur Leukocyte Esterase 2+ (Negative) H 09/17/22 12:15 Urine RBC 25-40 /hpf (0-2) H 09/17/22 12:15 Urine WBC 55-80 /hpf (0-5) H 09/17/22 12:15 Ur Squamous Epith Cells 25-40 /hpf (0-5) H 09/17/22 12:15 Ur Transition Epith Cell 0-4 /hpf 09/10/22 12:30 Amorphous Sediment Not Reportable 09/17/22 12:15 Urine Bacteria 2+ /hpf (NONE) H 09/17/22 12:15 Urine Yeast 2+ /hpf H 09/17/22 12:15 Ur Random Sodium 93 mmol/L 09/09/22 01:10 Urine Creatinine 51 mg/dL (28-217) 09/09/22 01:10 Nasal Influ A H1 2009 PCR Not detected (NOT DETECT) 09/08/22 08:45 Bronch Specimen Source Left lower lobe 09/13/22 18:40 Bronchial Fluid Color Red 09/13/22 18:40 Bronchial Fluid Appearance Bloody (CLEAR) 09/13/22 18:40 Bronchial Fluid WBC 1361 /uL 09/13/22 18:40 Bronchial Fluid RBC 900 10^3/uL 09/13/22 18:40 Bronch Cells Counted 200 09/13/22 18:40 Bronchial Neutrophils 72.00 % (0.9-2.3) H 09/13/22 18:40 Bronchial Lymphocytes 26.00 % (10.71-12.91) H 09/13/22 18:40 Bronchial Eosinophils 1.00 % (0.13-0.25) H 09/13/22 18:40 Bronchial Macrophages 1.00 % (83.6-86.8) L 09/13/22 18:40 Bronchial Diff Comment Yes 09/13/22 18:40 Vancomycin Trough 19.0 ug/mL (10-15) H 09/22/22 01:24 Random Vancomycin 20.7 ug/mL (20.0-40.0) 09/26/22 04:25 Adenovirus (PCR) Not detected (NOT DETECT) 09/08/22 08:45 C. pneumoniae DNA (PCR) Not detected (NOT DETECT) 09/08/22 08:45 Coronavirus 229E (PCR) Not detected (NOT DETECT) 09/08/22 08:45 Hepatitis A IgM Ab Non-reactive (Nonreactive) 09/11/22 05:57 Hep Bs Antigen Non-reactive (Nonreactive) 09/11/22 05:57 Hep Bs Antibody 12.8 (11.5-1000) 09/11/22 05:57 Hep B Core Total Ab Non-reactive (Nonreactive) 09/11/22 05:57 Hepatitis C Antibody Non-reactive (Nonreactive) 09/11/22 05:57 Human Metapneumovir PCR Not detected (NOT DETECT) 09/08/22 08:45 Influenza A (H1) PCR Not detected (NOT DETECT) 09/08/22 08:45 Influenza A (H3) PCR Not detected (NOT DETECT) 09/08/22 08:45 Influenza Type A (PCR) Not detected (NOT DETECT) 09/08/22 08:45 Influenza Type B (PCR) Not detected (NOT DETECT) 09/08/22 08:45 M. pneumoniae (PCR) Not detected (NOT DETECT) 09/08/22 08:45 Parainfluenza 1 (PCR) Not detected (NOT DETECT) 09/08/22 08:45 Parainfluenza 2 (PCR) Not detected (NOT DETECT) 09/08/22 08:45 Parainfluenza 3 (PCR) Not detected (NOT DETECT) 09/08/22 08:45 Parainfluenza 4 (PCR) Not detected (NOT DETECT) 09/08/22 08:45 RSV Type A (PCR) Not detected (NOT DETECT) 09/08/22 08:45 RSV Type B (PCR) Not detected (NOT DETECT) 09/08/22 08:45 Entero/Rhino (PCR) Not detected (NOT DETECT) 09/08/22 08:45 SARS-CoV-2 (PCR) Not detected (NOT DETECT) 09/08/22 08:45 Microbiology 09/24/22 10:30 Blood Blood Culture - Preliminary Gram positive cocci 09/24/22 10:20 Blood Blood Culture - Preliminary NEGATIVE TO DATE 09/19/22 15:55 Blood Blood Culture - Final NO GROWTH AFTER 5 DAYS 09/16/22 11:07 Blood Blood Culture - Final NO GROWTH AFTER 5 DAYS 09/16/22 13:27 Blood Blood Culture - Final Staphylococcus epidermidis 09/20/22 02:56 Stool Stool Lactoferrin - Final 09/20/22 02:56 Stool Enteric Pathogens (PCR) - Final 09/20/22 02:56 Stool Parasite Antigen Panel - Final 09/20/22 02:56 Stool Occult Blood (FIT) - Final 09/19/22 15:55 Blood Blood Culture - Preliminary 09/20/22 02:56 Stool Routine Collection C.difficile Toxin B Gene (PCR) - Final 09/17/22 16:30 Urine Catheterized Urine Culture - Final 09/13/22 18:40 Lung Left Lower Lobe Gram Stain - Final 09/13/22 18:40 Lung Left Lower Lobe Bronchoalveolar Lavage Culture - Final 09/14/22 04:00 Stool Routine Collection C.difficile Toxin B Gene (PCR) - Final 09/11/22 11:45 Sputum - Endotracheal Tube Aspirate Gram Stain - Final 09/11/22 11:45 Sputum - Endotracheal Tube Aspirate Sputum Culture - Final 09/08/22 09:08 Blood Blood Culture - Final NO GROWTH AFTER 5 DAYS 09/08/22 09:06 Blood Blood Culture - Final NO GROWTH AFTER 5 DAYS 09/11/22 09:15 Nose MRSA Culture - Final 09/10/22 12:30 Urine,Clean Catch Urine Culture - Final 09/09/22 04:45 Sputum - Endotracheal Tube Aspirate Gram Stain - Final 09/09/22 04:45 Sputum - Endotracheal Tube Aspirate Sputum Culture - Final 09/09/22 01:10 Urine,Clean Catch Urine Culture - Final 09/08/22 09:00 Nose MRSA Culture - Final 09/09/22 01:10 Urine,Clean Catch Bacterial Antigens - Final 09/09/22 01:10 Urine Catheterized Legionella Urinary Antigen - Final Radiology Impressions Duplex Scan Upper Extremity Artery 09/08/22 20:22 IMPRESSION: 1. No evidence for major vessel occlusion or significant stenosis. 2. Other details discussed above. Renal Ultrasound 09/09/22 05:33 IMPRESSION: 1. No hydronephrosis of either kidney. 2. Technologist notes somewhat limited evaluation of the kidneys, due to patient condition and body habitus. 3. Other details discussed above. Chest CTA 09/13/22 10:26 IMPRESSION: 1. Very limited exam due to artifact from CT bore contact. 2. Nondiagnostic evaluation of the pulmonary arteries. 3. Complete atelectasis of both lower lobes and partial atelectasis of the left upper lobe. 4. Cardiac enlargement. 5. Enlarged main pulmonary artery suggests pulmonary hypertension. 6. Lexus hepatis and gastrohepatic ligament lymphadenopathy is partially imaged. Recommend follow-up abdomen pelvis CT. 7. Satisfactory position of lines and tubes. KUB X-Ray 09/20/22 08:46 IMPRESSION: 1. No acute process noted. 2. Enteric tube in place appearing to end in the body the stomach. Chest X-Ray 09/25/22 03:56 IMPRESSION: 1. Endotracheal tube tip 3 cm from the maynor. 2. Nasogastric tube tip in proximal stomach 3. Improvement in aeration in the lungs compared with 09/23/2022 with residual perihilar haziness noted, findings that may represent pulmonary edema. Imaging Echo: Radiologist's impression: ?CONCLUSIONS ?1-Normal left ventricular size, systolic function and wall ?thickness, with no regional wall motion abnormalities. Left ?ventricular ejection fraction is estimated at 60 %. Grade I/IV ?diastolic dysfunction (abnormal relaxation filling pattern), ?normal to mildly elevated filling pressures. ? ?2-Aortic, tricuspid, pulmonary and mitral valves were not well ?visualized due to suboptimal images probably normal ?3-There is no pericardial effusion. ?4-There are no prior echocardiogram studies to compare. ?Lurdes Crain MD ?(Electronically Signed) ?Final Date:? ? ? 06 September 2022 ? 20:03 Recent Clincial Data Last Vital Signs Temp 98.4 F 09/26/22 08:00 Pulse 120 H 09/26/22 13:24 Resp 25 H 09/26/22 13:10 BP 110/83 09/26/22 12:00 Pulse Ox 97 09/26/22 13:23 O2 Del Method 09/26/22 13:10 O2 Flow Rate 40 09/25/22 07:34 FiO2 28 09/26/22 13:23 Vital Signs Temp Pulse Resp BP Pulse Ox O2 Del Method FiO2 09/26/22 13:24 120 H 09/26/22 13:23 131 H 97 28 09/26/22 13:10 131 H 25 H 97 BiPAP 09/26/22 12:00 129 H 19 H 110/83 92 09/26/22 11:00 130 H 21 H 108/74 93 09/26/22 12:00 28 09/26/22 10:00 132 H 20 H 113/79 93 BiPAP 09/26/22 09:00 129 H 20 H 92 BiPAP 28 09/26/22 10:37 132 H 93 28 09/26/22 10:37 28 09/26/22 09:58 28 09/26/22 08:00 98.4 F 129 H 20 H 113/86 98 09/26/22 07:38 128 H 04/04/23 07:32 128 H 95 35 09/26/22 07:20 122 H 21 H 95 BiPAP 35 09/26/22 07:00 127 H 19 H 132/101 99 09/26/22 06:00 127 H 19 H 113/80 95 09/26/22 05:00 128 H 120/80 95 09/26/22 04:00 127 H 21 H 116/74 95 09/26/22 03:00 128 H 115/74 93 09/26/22 02:00 127 H 21 H 110/71 93 09/26/22 07:14 35 09/26/22 07:14 98.4 F 127 H 20 H 113/80 09/26/22 06:00 127 H 09/26/22 06:00 127 H 20 H 113/80 93 BiPAP 35 09/26/22 04:37 125 H 93 35 09/26/22 04:00 98.4 F 128 H 20 H 116/74 94 BiPAP 35 09/26/22 02:00 127 H 20 H 110/71 91 BiPAP 35 09/26/22 02:26 127 H 21 H 95 Nasal Cannula 35 Intake & Output/Weight 09/24/22 09/25/22 09/26/22 09/27/22 06:59 06:59 06:59 06:59 Intake Total 2539.004 / 2539.004 1753.596 / 1881.935 8513.069 / 1307.069 6.167 / 6.167 Output Total 1475 / 1475 2125 / 2125 800 / 800 Balance 1064.004 / 1064.004 -371.404 / -371.404 507.069 / 507.069 6.167 / 6.167 Weight 162.93 kg 166.468 kg Vitals Last Vital Signs Temp 98.4 F 09/26/22 08:00 Pulse 120 H 09/26/22 13:24 Resp 25 H 09/26/22 13:10 BP 110/83 09/26/22 12:00 Pulse Ox 97 09/26/22 13:23 O2 Del Method 09/26/22 13:10 O2 Flow Rate 40 09/25/22 07:34 FiO2 28 09/26/22 13:23 TS Medications Medications Acetaminophen (Acetaminophen 325 Mg Tablet) 650 mg PO Q6H PRN PRN Reason: Mild/Mod Pain Or Temp >/= 101 Last Admin: 09/25/22 05:10 Dose: 650 mg Hydrocodone Bitart/Acetaminophen (Hydrocodone-Acetaminophen 7.5-325 Mg Tablet) 1 tab PO Q6H PRN PRN Reason: MODERATE PAIN Albuterol Sulfate (Albuterol 2.5 Mg/3 Ml Neb) 2.5 mg INHALATION Q4H.RESPIRATORY PRN PRN Reason: SHORTNESS OF BREATH Last Admin: 09/19/22 08:05 Dose: 2.5 mg Amiodarone HCl (Amiodarone 200 Mg Tablet) 400 mg PO BID [facility] Last Admin: 09/26/22 08:46 Dose: 400 mg Artificial Tears (Artificial Tears Op Oint 3.5 Gm) 1 applic EYE-BOTH BEDTIME [facility] Last Admin: 09/25/22 20:31 Dose: Not Given Atorvastatin Calcium (Atorvastatin 40 Mg Tablet) 40 mg PO BEDTIME [facility] Last Admin: 09/25/22 20:21 Dose: 40 mg Bisacodyl (Bisacodyl 5 Mg Tablet) 10 mg PO DAILY PRN; Protocol PRN Reason: Constipation (see protocol) Budesonide (Budesonide 0.5 Mg/2 Ml Neb) 0.5 mg INHALATION BID.RESPIRATORY [facility] Last Admin: 09/26/22 07:26 Dose: 0.5 mg Bumetanide (Bumetanide 0.25 Mg/Ml Sdv 10 Ml) 2 mg IVP Q8H [facility] Last Admin: 09/23/22 09:13 Dose: 2 mg Chlorhexidine Gluconate (Chlorhexidine Gluconate 4% Btl 118 Ml) 1 applic TOPICAL 0100 [facility] Last Admin: 09/26/22 00:02 Dose: Not Given Dextrose (Dextrose 50% Syringe 50 Ml) 25 ml IVP ONCE PRN; Protocol PRN Reason: hypoglycemia protocol Dextrose (Dextrose 50% Syringe 50 Ml) 50 ml IVP PRN PRN; Protocol PRN Reason: hypoglycemia protocol Diltiazem HCl (Diltiazem 60 Mg Tablet) 90 mg PO Q6H [facility] Last Admin: 09/26/22 02:43 Dose: Not Given Docusate Sodium (Docusate Sodium 10 Mg/Ml (5ml) Liq) 50 mg PO DAILY [facility] Last Admin: 09/26/22 10:16 Dose: Not Given Glucagon (Glucagon 1 Mg/Ml Inj 1 Ml) 1 mg IM ONCE PRN; Protocol PRN Reason: Adult Acute Hypoglycemia Prot. Heparin Sodium (Porcine) (Heparin, Porcine 1,000 Unit/Ml Inj 10 Ml) 10,000 unit HE PRN PRN PRN Reason: Dialysis Last Admin: 09/26/22 12:37 Dose: 10,000 unit Heparin Sodium (Porcine) (Heparin 5,000 Unit/Ml Inj 1 Ml) 5,000 unit SUBCUT Q8H [facility] Last Admin: 09/26/22 08:41 Dose: 5,000 unit Dextrose (D5w) 500 mls @ 100 mls/hr IV ONCE PRN; Protocol PRN Reason: Adult Acute Hypoglycemia Prot Piperacillin Sod/Tazobactam (Sod 3.375 gm/ Sodium Chloride) 50 mls @ 12.5 mls/hr IV Q12H [facility]; Protocol Last Infusion: 09/26/22 04:18 Dose: Infused Sodium Chloride (Sodium Chloride 0.9%) 1,000 mls @ 0 mls/hr IV .Q0M PRN PRN Reason: hypotension or symptomatic Albumin Human (Albumin) 12.5 gm in 50 mls @ 60 mls/hr IV PRN PRN PRN Reason: Hypotension and/or symptomatic Diltiazem HCl 100 mg/ Sodium (Chloride) 100 mls @ 0 mls/hr IV .Q0M [facility]; Protocol Last Titration: 09/26/22 11:34 Dose: 7.5 mg/hr, 7.5 mls/hr Sodium Chloride (Sodium Chloride 0.9%) 1,000 mls @ 0 mls/hr IV .Q0M PRN PRN Reason: hypotension or symptomatic Albumin Human (Albumin) 12.5 gm in 50 mls @ 60 mls/hr IV PRN PRN PRN Reason: Hypotension and/or symptomatic Ipratropium [place] (Ipratropium 0.5 Mg/2.5 Ml Neb) 0.5 mg INHALATION Q6H.RESP [facility] Last Admin: 09/26/22 13:19 Dose: 0.5 mg Levalbuterol HCl (Levalbuterol 0.63 Mg/3 Ml Neb) 0.63 mg INHALATION Q6H.RESP [facility] Last Admin: 09/26/22 13:19 Dose: 0.63 mg Levothyroxine Sodium (Levothyroxine 100 Mcg Sdv) 50 mcg IVP DAILY [facility] Last Admin: 09/26/22 08:40 Dose: 50 mcg Metoprolol Tartrate (Metoprolol Tartrate 50 Mg Tablet) 100 mg PO BID@0900,2100 [facility] Last Admin: 09/25/22 20:40 Dose: Not Given Midodrine (Midodrine 5 Mg Tablet) 10 mg PO TID PRN PRN Reason: SBP less than 120 mmhg Last Admin: 09/26/22 12:26 Dose: 10 mg Ondansetron HCl (Ondansetron 2 Mg/Ml Sdv 2 Ml) 4 mg IVP Q8H PRN PRN Reason: vomiting, or N/V if npo Last Admin: 09/24/22 10:41 Dose: 4 mg Pantoprazole Sodium (Pantoprazole 40 Mg Sdv) 40 mg IVP BID [facility] Last Admin: 09/26/22 08:40 Dose: 40 mg Phenol (Phenol Oral [place] 177 Ml) 3 spray MUCOUS MEM Q2H PRN PRN Reason: SORE THROAT Quetiapine Fumarate (Quetiapine 25 Mg Tablet) 50 mg PO BID [facility] Last Admin: 09/26/22 08:41 Dose: 50 mg Sucralfate (Sucralfate 1 Gm Tablet) 1 gm PO Q6H [facility] Last Admin: 09/26/22 12:05 Dose: 1 gm Discontinued Medications Hydrocodone Bitart/Acetaminophen (Hydrocodone-Acetaminophen 7.5-325 Mg Tablet) 1 tab PO Q4H PRN PRN Reason: MODERATE PAIN Last Admin: 09/26/22 08:41 Dose: 1 tab Acetylcysteine (Acetylcysteine 200 Mg/Ml Mdv 10 Ml) 100 mg INHALATION Q4H.RESPIRATORY [facility] Last Admin: 09/16/22 11:05 Dose: 100 mg Albuterol/Ipratropium (Ipratropium-Albuterol 3 Ml Neb) 3 ml INHALATION Q6H.RESP PRN PRN Reason: SHORTNESS OF BREATH Last Admin: 09/11/22 07:45 Dose: 3 ml Albuterol/Ipratropium (Ipratropium-Albuterol 3 Ml Neb) 3 ml INHALATION Q6H.RESP [facility] Last Admin: 09/13/22 08:18 Dose: 3 ml Albuterol/Ipratropium (Ipratropium-Albuterol 3 Ml Neb) 3 ml INHALATION Q4H.RESPIRATORY [facility] Last Admin: 09/24/22 15:28 Dose: 3 ml Amlodipine Besylate (Amlodipine 10 Mg Tablet) 10 mg PO DAILY [facility] Last Admin: 09/07/22 08:26 Dose: 10 mg Benzocaine/Butamben/Tetracaine HCl (Cetacaine [place] 20 Gm Can) 1 spray TOPICAL ONCE ONE Stop: 09/17/22 07:33 Last Admin: 09/17/22 10:12 Dose: Not Given Budesonide (Budesonide 0.5 Mg/2 Ml Neb) 0.5 mg INHALATION BID [facility] Last Admin: 09/12/22 08:00 Dose: 0.5 mg Bumetanide (Bumetanide 0.25 Mg/Ml Sdv 4 Ml) 1 mg IVP ONCE ONE Stop: 09/09/22 21:43 Last Admin: 09/09/22 21:34 Dose: 1 mg Bumetanide (Bumetanide 0.25 Mg/Ml Sdv 4 Ml) 1 mg IVP Q12H [facility] Last Admin: 09/11/22 00:27 Dose: 1 mg Bumetanide (Bumetanide 0.25 Mg/Ml Sdv 4 Ml) 2 mg IVP Q8H [facility] Last Admin: 09/13/22 17:26 Dose: 2 mg Clonidine HCl (Clonidine 0.1 Mg Tablet) 0.3 mg PO TID [facility] Last Admin: 09/07/22 20:35 Dose: 0.3 mg Dextrose (Dextrose 50% Syringe 50 Ml) 50 ml IVP ONCE ONE Stop: 09/09/22 18:32 Digoxin (Digoxin 250 Mcg/Ml Inj 2 Ml) 250 mcg IVP NOW ONE Stop: 09/23/22 12:14 Last Admin: 09/23/22 12:28 Dose: 250 mcg Diltiazem HCl (Diltiazem 5 Mg/Ml Sdv 5 Ml) 20 mg IVP ONCE ONE Stop: 09/21/22 10:25 Last Admin: 09/21/22 11:19 Dose: Not Given Diltiazem HCl (Diltiazem 5 Mg/Ml Sdv 5 Ml) 10 mg IVP ONCE ONE Stop: 09/23/22 14:27 Last Admin: 09/23/22 15:01 Dose: 10 mg Diltiazem HCl (Diltiazem 5 Mg/Ml Sdv 5 Ml) 10 mg IVP ONCE ONE Stop: 09/24/22 09:01 Last Admin: 09/24/22 09:22 Dose: 10 mg Diltiazem HCl (Diltiazem 60 Mg Tablet) 60 mg PO Q6H [facility] Last Admin: 09/25/22 04:57 Dose: 60 mg Diphenhydramine HCl (Diphenhydramine 50 Mg/Ml Sdv 1ml) 25 mg IVP ONCE ONE Stop: 09/24/22 14:05 Last Admin: 09/24/22 15:17 Dose: 25 mg Epinephrine HCl (Epinephrine 1 Mg/Ml Inj) Confirm Administered Dose 1 mg .ROUTE .STK-MED ONE Stop: 09/21/22 10:46 Epinephrine HCl (Epinephrine 1 Mg/Ml Inj) 1 mg XX ONCE ONE Stop: 09/21/22 09:31 Last Admin: 09/21/22 09:30 Dose: 0.3 mg Esmolol HCl (Esmolol 100 Mg/10 Ml Sdv) Confirm Administered Dose 100 mg .ROUTE .STK-MED ONE Stop: 09/21/22 10:21 Fentanyl (Fentanyl 50 Mcg/Ml Inj 2ml) Confirm Administered Dose 100 mcg .ROUTE .STK-MED ONE Stop: 09/21/22 08:04 Furosemide (Furosemide 10 Mg/Ml Sdv 4ml) 40 mg IVP BID [facility] Last Admin: 09/08/22 10:08 Dose: 40 mg Furosemide (Furosemide 10 Mg/Ml Sdv 10ml) 80 mg IVP ONCE ONE Stop: 09/08/22 22:26 Last Admin: 09/08/22 22:33 Dose: 80 mg Glucagon (Glucagon 1 Mg/Ml Inj 1 Ml) 1 mg IV ONCE ONE Stop: 09/08/22 16:11 Last Admin: 09/08/22 16:30 Dose: 1 mg Heparin Sodium (Porcine) (Heparin 5,000 Unit/Ml Inj 1 Ml) 5,000 unit SUBCUT Q8H [facility] Last Admin: 09/16/22 02:10 Dose: 5,000 unit Heparin Sodium (Porcine) (Heparin, Porcine 1,000 Unit/Ml Inj 10 Ml) 1,000 unit IV ONCE ONE Stop: 09/11/22 10:08 Last Admin: 09/11/22 18:43 Dose: Not Given Heparin Sodium (Porcine) (Heparin, Porcine 1,000 Unit/Ml Inj 10 Ml) 10,000 unit INTRACATH ONCE ONE Stop: 09/11/22 10:10 Last Admin: 09/11/22 18:43 Dose: Not Given Heparin Sodium (Porcine) (Heparin, Porcine 1,000 Unit/Ml Inj 10 Ml) 0 unit HE ONCE ONE Stop: 09/11/22 14:01 Last Admin: 09/11/22 18:43 Dose: Not Given Heparin Sodium (Porcine) (Heparin, Porcine 1,000 Unit/Ml Inj 10 Ml) 0 unit HE ONCE ONE Stop: 09/11/22 17:39 Last Admin: 09/11/22 18:44 Dose: Not Given Heparin Sodium (Porcine) (Heparin, Porcine 1,000 Unit/Ml Inj 10 Ml) 0 unit HE ONCE ONE Stop: 09/12/22 10:24 Last Admin: 09/12/22 10:48 Dose: Not Given Heparin Sodium (Porcine) (Heparin, Porcine 1,000 Unit/Ml Inj 10 Ml) 10,000 unit INTRACATH ONCE ONE Stop: 09/12/22 15:16 Last Admin: 09/12/22 17:06 Dose: 10,000 unit Heparin Sodium (Porcine) (Heparin, Porcine 1,000 Unit/Ml Inj 10 Ml) 1,000 unit IV ONCE ONE Stop: 09/14/22 08:48 Last Admin: 09/14/22 13:07 Dose: 1,000 unit Heparin Sodium (Porcine) (Heparin, Porcine 1,000 Unit/Ml Inj 10 Ml) 10,000 unit INTRACATH ONCE ONE Stop: 09/15/22 08:01 Last Admin: 09/15/22 18:11 Dose: 10,000 unit Heparin Sodium (Porcine) (Heparin 5,000 Unit/Ml Inj 1 Ml) 0 unit IV PRN PRN; Protocol PRN Reason: Heparin weight-base protocol Last Admin: 09/17/22 21:07 Dose: 2,800 unit Heparin Sodium (Porcine) (Heparin, Porcine 1,000 Unit/Ml Inj 10 Ml) 0 unit HE ONCE ONE Stop: 09/16/22 11:01 Last Admin: 09/16/22 23:07 Dose: 10,000 unit Heparin Sodium (Porcine) (Heparin, Porcine 1,000 Unit/Ml Inj 10 Ml) 10,000 unit INTRACATH ONCE ONE Stop: 09/16/22 18:02 Last Admin: 09/17/22 01:26 Dose: 10,000 unit Heparin Sodium (Porcine) (Heparin, Porcine 1,000 Unit/Ml Inj 10 Ml) 10,000 unit INTRACATH ONCE ONE Stop: 09/18/22 06:28 Last Admin: 09/18/22 13:24 Dose: Not Given Heparin Sodium (Porcine) (Heparin, Porcine 1,000 Unit/Ml Inj 10 Ml) 10,000 unit INTRACATH ONCE ONE Stop: 09/19/22 08:57 Heparin Sodium (Porcine) (Heparin Lock Flush 500 Unit/5 Ml Syringe) 500 unit IVP ONCE ONE Stop: 09/19/22 17:10 Last Admin: 09/19/22 17:52 Dose: 500 unit Heparin Sodium (Porcine) (Heparin, Porcine 1,000 Unit/Ml Inj 10 Ml) 10,000 unit INTRACATH ONCE ONE Stop: 09/21/22 08:02 Last Admin: 09/21/22 16:06 Dose: 10,000 unit Heparin Sodium (Porcine) (Heparin, Porcine 1,000 Unit/Ml Inj 10 Ml) 10,000 unit IRRIGATION ONCE ONE Stop: 09/21/22 09:05 Last Admin: 09/21/22 10:20 Dose: 10,000 unit Heparin Sodium (Porcine) (Heparin, Porcine 1,000 Unit/Ml Inj 10 Ml) 10,000 unit INTRACATH ONCE ONE Stop: 09/22/22 17:37 Last Admin: 09/22/22 17:38 Dose: 10,000 unit Hydralazine HCl (Hydralazine 50 Mg Tablet) 50 mg PO TID [facility] Hydralazine HCl (Hydralazine 50 Mg Tablet) 100 mg PO TID [facility] Last Admin: 09/07/22 20:35 Dose: 100 mg Hydrochlorothiazide (Hydrochlorothiazide 25 Mg Tablet) 25 mg PO DAILY [facility] Last Admin: 09/07/22 08:26 Dose: 25 mg Hydrocortisone Sodium Succinate (Hydrocortisone 100 Mg/2 Ml Sdv) 100 mg IVP Q6H [facility] Last Admin: 09/17/22 10:03 Dose: 100 mg Hydrocortisone Sodium Succinate (Hydrocortisone 100 Mg/2 Ml Sdv) 100 mg IVP Q12H [facility] Last Admin: 09/21/22 12:38 Dose: 100 mg Hydromorphone HCl (Hydromorphone 1 Mg/Ml Inj 1 Ml) 1 mg IVP ONCE ONE Stop: 09/24/22 08:59 Last Admin: 09/24/22 09:21 Dose: 1 mg Nicardipine/Sodium Chloride (Cardene) 20 mg in 200 mls @ 0 mls/hr IV .Q0M [facility]; Protocol Last Titration: 09/07/22 17:00 Dose: 0 mg/hr, 0 mls/hr Norepinephrine Bitartrate 4 mg (/ Dextrose) 254 mls @ 0 mls/hr IV .Q0M [facility]; Protocol Last Titration: 09/08/22 13:45 Dose: Infused Piperacillin Sod/Tazobactam (Sod 3.375 gm/ Sodium Chloride) 50 mls @ 12.5 mls/hr IV Q8H [facility]; Protocol Last Infusion: 09/09/22 11:16 Dose: Infused Vancomycin HCl 2,000 mg/ (Sodium Chloride) 500 mls @ 250 mls/hr IV Q18H [facility] Last Infusion: 09/09/22 11:16 Dose: Infused Sodium Chloride (Sodium Chloride 0.9%) 500 mls @ 500 mls/hr IV ONCE ONE Stop: 09/08/22 11:14 Last Infusion: 09/08/22 11:34 Dose: Infused Norepinephrine Bitartrate 8 mg (/ Dextrose) 508 mls @ 0 mls/hr IV .Q0M [facility]; Protocol Last Titration: 09/09/22 10:04 Dose: 0 mcg/min, 0 mls/hr Sodium Chloride (Sodium Chloride 0.9%) 500 mls @ 500 mls/hr IV ONCE ONE Stop: 09/08/22 13:24 Last Infusion: 09/08/22 18:05 Dose: Infused Sodium Chloride (Sodium Chloride 0.9%) 1,000 mls @ 100 mls/hr IV .Q10H [facility] Last Infusion: 09/09/22 11:16 Dose: Infused Vasopressin 100 unit/ Sodium (Chloride) 100 mls @ 0 mls/hr IV .Q0M [facility]; Protocol Calcium Gluconate/Sodium Chloride (Calcium Gluconate 0.9% Nacl) 1 gm in 50 mls @ 100 mls/hr IV Q30M [facility] Stop: 09/08/22 17:14 Last Infusion: 09/08/22 18:05 Dose: Infused Sodium Chloride (Sodium Chloride 0.9%) 500 mls @ 999 mls/hr IV .Q31M ONE Stop: 09/08/22 16:53 Last Infusion: 09/08/22 18:06 Dose: Infused Insulin Human Regular 10 unit/ (N/A) 0.1 mls @ 0 mls/hr IVP ONCE ONE Stop: 09/08/22 17:52 Last Infusion: 09/08/22 18:49 Dose: Infused Dextrose 35.5 ml/ Sterile (Water 14.5 ml/ N/A) 50 mls @ 600 mls/hr IVP ONCE ONE Stop: 09/08/22 18:04 Last Infusion: 09/08/22 18:49 Dose: Infused Propofol (Diprivan) 1,000 mg in 100 mls @ 0 mls/hr IV .Q0M [facility]; Protocol Last Titration: 09/14/22 19:00 Dose: Infused Etomidate (Amidate) Confirm Administered Dose 20 mls @ as directed .ROUTE .STK- MED ONE Stop: 09/09/22 03:43 Last Admin: 09/09/22 05:17 Dose: Not Given Sodium Chloride (Sodium Chloride 0.9% (100 Ml)) Confirm Administered Dose 100 mls @ as directed .ROUTE .STK-MED ONE Stop: 09/09/22 03:43 Last Admin: 09/09/22 05:16 Dose: Not Given Fentanyl 2,500 mcg/ Sodium (Chloride) 250 mls @ 0 mls/hr IV .Q0M [facility]; Protocol Last Titration: 09/22/22 12:32 Dose: 0 mcg/hr, 0 mls/hr Furosemide 100 mg/ Sodium (Chloride) 50 mls @ 0 mls/hr IV .Q0M [facility]; Protocol Last Admin: 09/09/22 05:53 Dose: 20 mg/hr, 10 mls/hr Bumetanide 25 mg/ N/A 100 mls @ 8 mls/hr IV .[id number] [facility] Last Infusion: 09/09/22 13:24 Dose: 0 mg/hr, 0 mls/hr Vancomycin/PEG/[place]/Lysine/Water (Vancocin) 1,500 mg in 300 mls @ 200 mls/hr IV Q24H [facility] Piperacillin Sod/Tazobactam (Sod 3.375 gm/ Sodium Chloride) 50 mls @ 12.5 mls/hr IV Q12H [facility]; Protocol Stop: 09/10/22 01:00 Last Infusion: 09/10/22 00:33 Dose: Infused Dextrose 35.5 ml/ Sterile (Water 14.5 ml/ N/A) 50 mls @ 600 mls/hr IVP ONCE ONE Stop: 09/09/22 18:49 Last Infusion: 09/09/22 18:48 Dose: Infused Piperacillin Sod/Tazobactam (Sod 2.25 gm/ Sodium Chloride) 50 mls @ 12.5 mls/hr IV Q8H [facility] Piperacillin Sod/Tazobactam (Sod 2.25 gm/ Sodium Chloride) 50 mls @ 12.5 mls/hr IV Q8H [facility] Last Infusion: 09/12/22 11:30 Dose: Infused Sodium Chloride (Sodium Chloride 0.9%) 1,000 mls @ 0 mls/hr IV .Q0M PRN PRN Reason: hypotension or symptomatic Albumin Human (Albumin) 12.5 gm in 50 mls @ 60 mls/hr IV PRN PRN PRN Reason: Hypotension and/or symptomatic Last Infusion: 09/11/22 18:56 Dose: Infused Albumin Human (Albumin) 25 g in 100 mls @ 60 mls/hr IV Q8H [facility] Last Infusion: 09/14/22 03:16 Dose: Infused Norepinephrine Bitartrate 4 mg (/ Dextrose) 254 mls @ 0 mls/hr IV .Q0M [facility]; Protocol Last Titration: 09/22/22 06:10 Dose: 0 mcg/min, 0 mls/hr Piperacillin Sod/Tazobactam (Sod 3.375 gm/ Sodium Chloride) 50 mls @ 12.5 mls/hr IV Q12H [facility] Last Infusion: 09/13/22 14:54 Dose: Infused Sodium Chloride (Sodium Chloride 0.9%) 1,000 mls @ 0 mls/hr IV .Q0M PRN PRN Reason: hypotension or symptomatic Albumin Human (Albumin) 12.5 gm in 50 mls @ 60 mls/hr IV PRN PRN PRN Reason: Hypotension and/or symptomatic Midazolam HCl 100 mg/ Sodium (Chloride) 100 mls @ 0 mls/hr IV .Q0M [facility]; Protocol Last Titration: 09/22/22 09:50 Dose: 0 mg/hr, 0 mls/hr Sodium Chloride (Sodium Chloride 0.9%) 1,000 mls @ 0 mls/hr IV .Q0M PRN PRN Reason: hypotension or symptomatic Albumin Human (Albumin) 12.5 gm in 50 mls @ 60 mls/hr IV PRN PRN PRN Reason: Hypotension and/or symptomatic Last Infusion: 09/17/22 00:25 Dose: Infused Sodium Chloride (Sodium Chloride 0.9%) 1,000 mls @ 0 mls/hr IV .Q0M PRN PRN Reason: hypotension or symptomatic Albumin Human (Albumin) 12.5 gm in 50 mls @ 60 mls/hr IV PRN PRN PRN Reason: Hypotension and/or symptomatic Sodium Chloride (Sodium Chloride 0.9%) 500 mls @ 3 mls/hr XX .Q24H [facility] Last Admin: 09/16/22 19:24 Dose: Not Given Sodium Chloride (Sodium Chloride 0.9%) 1,000 mls @ 0 mls/hr IV .Q0M PRN PRN Reason: hypotension or symptomatic Albumin Human (Albumin) 12.5 gm in 50 mls @ 60 mls/hr IV PRN PRN PRN Reason: Hypotension and/or symptomatic Acetaminophen (Acetaminophen) 1,000 mg in 100 mls @ 400 mls/hr IV ONCE ONE Stop: 09/15/22 17:37 Last Infusion: 09/15/22 19:00 Dose: Infused Heparin Sodium/Sodium Chloride (Heparin Drip) 25,000 unit in 500 mls @ 0 mls/hr IV .Q0M [facility]; Protocol Last Titration: 09/20/22 05:00 Dose: Infused Vancomycin HCl 1,000 mg/ (Sodium Chloride) 250 mls @ 250 mls/hr IV Q48H [facility]; Protocol Last Infusion: 09/24/22 13:57 Dose: Infused Sodium Chloride (Sodium Chloride 0.9%) 1,000 mls @ 0 mls/hr IV .Q0M PRN PRN Reason: hypotension or symptomatic Albumin Human (Albumin) 12.5 gm in 50 mls @ 60 mls/hr IV PRN PRN PRN Reason: Hypotension and/or symptomatic Sodium Chloride (Sodium Chloride 0.9%) 1,000 mls @ 0 mls/hr IV .Q0M PRN PRN Reason: hypotension or symptomatic Albumin Human (Albumin) 12.5 gm in 50 mls @ 60 mls/hr IV PRN PRN PRN Reason: Hypotension and/or symptomatic Last Infusion: 09/19/22 15:34 Dose: Infused Sodium Chloride (Sodium Chloride 0.9%) 1,000 mls @ 0 mls/hr IV .Q0M PRN PRN Reason: hypotension or symptomatic Albumin Human (Albumin) 12.5 gm in 50 mls @ 60 mls/hr IV PRN PRN PRN Reason: Hypotension and/or symptomatic Sodium Chloride (Sodium Chloride 0.9%) 500 mls @ 999 mls/hr IV .Q31M ONE Stop: 09/19/22 17:38 Last Infusion: 09/19/22 18:01 Dose: Infused Heparin Sodium (Porcine) (Heparin, Porcine) Confirm Administered Dose 10 mls @ as directed .ROUTE .[facility] ONE Stop: 09/20/22 14:51 Last Admin: 09/20/22 17:25 Dose: Not Given Heparin Sodium (Porcine) (Heparin, Porcine) Confirm Administered Dose 10 mls @ as directed .ROUTE .[facility] ONE Stop: 09/21/22 07:24 Sodium Chloride (Sodium Chloride 0.9% (100 Ml)) Confirm Administered Dose 100 mls @ as directed .ROUTE .[facility] ONE Stop: 09/21/22 07:29 Last Admin: 09/21/22 11:09 Dose: Not Given Amiodarone HCl 900 mg/Dextrose/ IV Miscellaneous Supplies 518 mls @ 0 mls/hr IV .Q0M [facility]; Protocol Amiodarone HCl 150 mg/Dextrose/ IV Miscellaneous Supplies 103 mls @ 412 mls/hr IV ONCE ONE Stop: 09/21/22 11:24 Last Admin: 09/21/22 12:40 Dose: 412 mls/hr Amiodarone HCl 900 mg/Dextrose/ IV Miscellaneous Supplies 518 mls @ 0 mls/hr IV .Q0M [facility]; Protocol Last Titration: 09/24/22 10:00 Dose: Infused Lactated Ringer's (Lactated Ringers) 500 mls @ 100 mls/hr IV .Q5H ONE Stop: 09/22/22 13:29 Last Infusion: 09/22/22 17:15 Dose: Infused Dexmedetomidine HCl 400 mcg/ (Sodium Chloride) 104 mls @ 0 mls/hr IV .Q0M [facility]; Protocol Last Titration: 09/23/22 12:16 Dose: Infused Lidocaine HCl 5 ml/ Potassium (Chloride) 105 mls @ 26.25 mls/hr IV ONCE ONE Stop: 09/23/22 13:19 Last Infusion: 09/23/22 14:40 Dose: Infused Sodium Chloride (Sodium Chloride 0.9%) 1,000 mls @ 150 mls/hr IV .Q6H40M [facility] Last Infusion: 09/23/22 12:35 Dose: Infused Dexmedetomidine HCl 1,000 mcg/ (Sodium Chloride) 260 mls @ 0 mls/hr IV .Q0M [facility]; Protocol Last Titration: 09/25/22 19:00 Dose: 0 mcg/kg/hr, 0 mls/hr Fentanyl 1,000 mcg/ Sodium (Chloride) 100 mls @ 0 mls/hr IV .Q0M [facility]; Protocol Last Titration: 09/26/22 00:19 Dose: Infused Sodium Chloride (Sodium Chloride 0.9%) 1,000 mls @ 125 mls/hr IV .Q8H ONE Stop: 09/26/22 03:45 Last Infusion: 09/26/22 04:23 Dose: Infused Ipratropium [place] (Ipratropium 0.5 Mg/2.5 Ml Neb) 0.5 mg INHALATION Q6H [facility] Last Admin: 09/25/22 07:33 Dose: 0.5 mg Levothyroxine Sodium (Levothyroxine 50 Mcg Tablet) 50 mcg PO QAM [facility] Last Admin: 09/15/22 05:54 Dose: 50 mcg Lidocaine HCl (Lidocaine 1% Inj 10 Ml (Per Ml)) 15 ml INTRADERMA ONCE ONE Stop: 09/08/22 20:32 Last Admin: 09/08/22 21:57 Dose: Not Given Lidocaine/Epinephrine (Lidocaine-Epi 2% 20 Ml Inj) Confirm Administered Dose 20 ml .ROUTE .STK-MED ONE Stop: 09/20/22 14:51 Last Admin: 09/20/22 17:26 Dose: Not Given Lidocaine/Epinephrine (Lidocaine-Epi 2% 20 Ml Inj) Confirm Administered Dose 20 ml .ROUTE .STK-MED ONE Stop: 09/21/22 07:24 Lidocaine/Epinephrine (Lidocaine-Epi 2% 20 Ml Inj) 20 ml INJECTION ONCE ONE Stop: 09/21/22 09:07 Last Admin: 09/21/22 09:40 Dose: 20 ml Lisinopril (Lisinopril 20 Mg Tablet) 20 mg PO DAILY [facility] Last Admin: 09/07/22 08:26 Dose: 20 mg Lisinopril (Lisinopril 20 Mg Tablet) 40 mg PO DAILY [facility] Lisinopril (Lisinopril 20 Mg Tablet) 40 mg PO DAILY [facility] Lisinopril (Lisinopril 20 Mg Tablet) 25 mg PO ONCE ONE Stop: 09/07/22 08:46 Lisinopril (Lisinopril 20 Mg Tablet) 20 mg PO ONCE ONE Stop: 09/07/22 08:46 Last Admin: 09/07/22 08:35 Dose: 20 mg Metolazone (Metolazone 5 Mg Tablet) 5 mg PO DAILY [facility] Last Admin: 09/19/22 08:24 Dose: 5 mg Metoprolol Tartrate (Metoprolol Tartrate 25 Mg Tablet) 25 mg PO ONCE ONE Stop: 09/22/22 17:43 Last Admin: 09/22/22 17:46 Dose: 25 mg Metoprolol Tartrate (Metoprolol Tartrate 25 Mg Tablet) 25 mg PO BID@0900,2100 [facility] Last Admin: 09/23/22 08:38 Dose: 25 mg Metoprolol Tartrate (Metoprolol Tartrate 50 Mg Tablet) 50 mg PO BID@0900,2100 [facility] Last Admin: 09/24/22 12:38 Dose: Not Given Metoprolol Tartrate (Metoprolol Tartrate 25 Mg Tablet) 25 mg PO ONCE ONE Stop: 09/23/22 12:53 Last Admin: 09/23/22 13:00 Dose: 25 mg Metoprolol Tartrate (Metoprolol Tartrate 50 Mg Tablet) 100 mg PO ONCE ONE Stop: 09/24/22 09:20 Last Admin: 09/24/22 09:34 Dose: 100 mg Midazolam HCl (Midazolam 1 Mg/Ml Inj 2 Ml) Confirm Administered Dose 2 mg .ROUTE .STK-MED ONE Stop: 09/21/22 08:04 Midodrine (Midodrine 5 Mg Tablet) 10 mg PO TID [facility] Last Admin: 09/23/22 15:01 Dose: 10 mg Minoxidil (Minoxidil 10 Mg Tablet) 5 mg PO DAILY [facility] Pantoprazole Sodium (Pantoprazole 40 Mg Sdv) 40 mg IVP DAILY [facility] Last Admin: 09/19/22 08:25 Dose: 40 mg Perflutren Protein Type A Microsphe (Perflutren Protein-A Microsphr 0.22 Mg/Ml Sdv 3 Ml) 0 ml IV ONCE ONE Stop: 09/06/22 11:47 Last Admin: 09/06/22 11:53 Dose: 3 ml Phenylephrine HCl (Phenylephrine 10 Mg/Ml Sdv 1 Ml) Confirm Administered Dose 10 mg .ROUTE .STK-MED ONE Stop: 09/09/22 03:42 Last Admin: 09/09/22 05:17 Dose: Not Given Phenylephrine HCl (Phenylephrine 10 Mg/Ml Sdv 1 Ml) Confirm Administered Dose 10 mg .ROUTE .STK-MED ONE Stop: 09/21/22 08:55 Propofol (Propofol 10 Mg/Ml Sdv 20 Ml) Confirm Administered Dose 200 mg .ROUTE .K-MED ONE Stop: 09/09/22 03:43 Last Admin: 09/09/22 04:00 Dose: 200 mg Propofol (Propofol 10 Mg/Ml Sdv 20 Ml) 200 mg IVP ONCE ONE Stop: 09/09/22 05:13 Last Admin: 09/09/22 05:19 Dose: Not Given Propofol (Propofol 10 Mg/Ml Sdv 20 Ml) Confirm Administered Dose 200 mg .ROUTE .STK-MED ONE Stop: 09/21/22 08:55 Rocuronium [place] (Rocuronium 10 Mg/Ml Inj 5ml) Confirm Administered Dose 50 mg .ROUTE .STK-MED ONE Stop: 09/09/22 03:43 Last Admin: 09/09/22 04:00 Dose: 50 mg Rocuronium [place] (Rocuronium 10 Mg/Ml Inj 5ml) Confirm Administered Dose 50 mg .ROUTE .STK-MED ONE Stop: 09/09/22 04:07 Last Admin: 09/09/22 05:17 Dose: Not Given Rocuronium [place] (Rocuronium 10 Mg/Ml Inj 5ml) 0 mg IVP ONCE ONE Stop: 09/09/22 05:13 Last Admin: 09/09/22 05:19 Dose: Not Given Senna/Docusate Sodium (Sennosides-Docusate Tablet) 1 tab PO BID [facility] Silver Sulfadiazine (Silver Sulfadiazine Cream 1% 50 Gm) 1 applic TOPICAL QAM&BEDTIME [place] Last Admin: 09/23/22 05:06 Dose: 1 applic Succinylcholine Chloride (Succinylcholine 20 Mg/Ml Sdv 10ml) Confirm Administered Dose 400 mg .ROUTE .STK-MED ONE Stop: 09/09/22 03:43 Last Admin: 09/09/22 04:00 Dose: 200 mg Succinylcholine Chloride (Succinylcholine 20 Mg/Ml Sdv 10ml) 0 mg IVP ONCE ONE Stop: 09/09/22 05:15 Last Admin: 09/09/22 05:19 Dose: Not Given Sucralfate (Sucralfate 1 Gm Tablet) 1 gm PO Q12H [place] Last Admin: 09/21/22 04:50 Dose: Not Given Allergies No Known Allergies Allergy (Verified 09/07/22 07:55) Home Medications No Known Home Medications 09/07/22 [History Confirmed 09/07/22] Discharge Plan Discharge Patient Disposition: Home Condition: Stable Prescriptions: No Action No Known Home Medications Discharge Orders: Discharge Order (Routine); Ordered 09/26/22 Ordered By: Derek Rodríguez Patient Instructions: Opioid Safety Transfer Attestations Time Spent in Transfer Care: critical care time Critical Care Time (min): 80 Status at Transfer: Cognitive status at transfer: mildly impaired cognition ; Behavioral status at transfer: cooperative ; Functional status at transfer: bed bound ; Overall status at transfer: patient is progressing back to baseline Quality Metrics Clinical Quality Measures [ No reported AMI, CVA or VTE this stay] Coding Level of Care Code Critical Care >/= 30 minutes Critical care time (in minutes): 80 The high probability of a clinically significant, sudden or life threatening deterioration, as referenced in this documentation, required my full and direct attention, intervention and personal management. The critical care time shown is in addition to time spent performing any reported separately billable procedures and includes the following: [x] Data and vital sign review and interpretation [x ] Patient assessment, examination and intervention [x] Medication orders and management [x] Patient/Family updates as able [x] Care Coordination and Documentation. Other Coding Information This patient has a high probability of clinically significant, sudden or life threatening deterioration of the patient's (neurological/pulmonary/cardiac/renal/ID/endocrine) systems required my full, direct attention, the highest level of physician preparedness for urgent intervention and personal management. I managed/supervised life or organ supporting interventions that required frequent physician assessment. I devoted my full attention in the ICU to the direct care of this patient for the period of time indicated above. Time I spent with family or surrogate(s) is included only if the patient was incapable of providing necessary information or participating in decision making. This time includes the following services provided: Telemetry review AVAPS ventilation Hemodynamic interpretation, assessment and management Review and interpretation of CXR Review and interpretation of lab values Review and interpretation of microbiologic data and culture results Review of medications and administration Review and interpretation of Nutrition requirements and management Discussion of management with other consultants and services Clinical update to family members Diagnoses Acute kidney injury N17.9 Gram-positive bacteremia R78.81 Type 2 AMI (acute myocardial infarction) I21.A1 Tachycardia, unspecified R00.0 Duodenal ulcer K26.9 Atrial fibrillation with RVR I48.91 GI bleed K92.2 Open wound of right hand S61.401A 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
--- NOTE | 2022-09-26 15:18 | PC.NURSE ---
[facility] to [facility] Pt being transferred to [facility] in [place]. Pt will be going to room 131. Pt alert and able to verbalize her understanding of the transfer and okayed her mom Dasha who is at bedside to sign her transfer consent. Mom Dasha signed consent with two nurses and physician present. Report called to Sandra Freeman RN at [phone]. EARNEST Brown arranging transport through pt's insurance [employer]. Pt's family at bedside and up to date on transfer process.
[2022-09-26 16:07] LABS: Glucose Point of Care 96 mg/dL (70-110)
--- NOTE | 2022-09-26 16:44 | PC.SLP ---
NADEGE lang put on hold as pt is being transferred to [facility].
--- NOTE | 2022-09-26 17:28 | P.PN_ITS ---
Subjective Subjective: Seen patient at bedside today morning She is net -16.8 L since admission She is awake and alert-currently requiring BiPAP -ABG showed a mixed respiratory as well as metabolic acidosis-she is receiving hemodialysis -Plan is to transfer to LTAC today Medications: Reviewed: Yes Medication Review Details: Generic Name Dose Route Start Last Admin Trade Name Freq PRN Reason Stop Dose Admin Acetaminophen 650 mg 09/06/22 10:41 09/07/22 04:50 Acetaminophen 32 5 Mg Tablet PO 650 mg Q6H PRN Administration Mild/Mod Pain Or Temp >/= 101 Albuterol/Ipratrop ium 3 ml 09/06/22 10:45 09/10/22 08:21 Ipratropium-Albu terol 3 Ml Neb INHALATION 3 ml Q6H.RESP PRN Administration SHORTNESS OF KVNG TH Chlorhexidine Gluc millie 1 applic 09/10/22 01:00 09/10/22 04:17 Chlorhexidine Gl uconate 4% Btl 118 Ml TOPICAL Not Given 0100 STERLING Heparin Sodium (Po rcine) 5,000 unit 09/06/22 10:45 09/10/22 11:01 Heparin 5,000 Un it/Ml Inj 1 Ml SUBCUT 5,000 unit Q8H ST[place] Administration Norepinephrine Bit artrate 4 mg 254 mls @ 0 mls/h r 09/07/22 22:30 09/08/22 13:45 / Dextrose IV Infused .Q0M ST[place] Titration Protocol Per Protocol Norepinephrine Bit artrate 8 mg 508 mls @ 0 mls/h r 09/08/22 11:30 09/09/22 10:04 / Dextrose IV 0 mcg/min .Q0M STER[place]ING 0 mls/hr Titration Protocol Per Protocol Propofol 1,000 mg in 100 m ls @ 0 mls/hr 09/09/22 03:45 09/10/22 08:33 Diprivan IV 30 mcg/kg/min .Q0M ST[place]ING 31.14 mls/hr Administration Protocol Per Protocol Fentanyl 2,500 mcg / Sodium 250 mls @ 0 mls/h r 09/09/22 04:45 09/09/22 13:56 Chloride IV 30 mcg/hr .Q0M ST[place] 3 mls/hr Titration Protocol Per Protocol Piperacillin Sod/T azobactam 50 mls @ 12.5 mls /hr 09/10/22 08:00 09/10/22 07:58 Sod 2.25 gm/ Sod ium Chloride IV 12.5 mls/hr Q8H [place] Administration Ondansetron HCl 4 mg 09/06/22 10:41 09/08/22 16:34 Ondansetron 2 Mg /Ml Sdv 2 Ml IVP 4 mg Q8H PRN Administration vomiting, or N/V if npo Vitals/I&O/Wt Last Vital Signs Temp 98.4 F 09/26/22 08:00 Pulse 105 H 09/26/22 16:01 Resp 25 H 09/26/22 16:00 BP 117/89 09/26/22 16:00 Pulse Ox 94 09/26/22 16:01 O2 Del Method 09/26/22 16:00 O2 Flow Rate 40 09/25/22 07:34 FiO2 28 09/26/22 16:01 09/26/22 09/26/22 09/26/22 06:59 14:59 22:59 Intake Total 1050 / 1307.069 30.167 / 30.167 Output Total 300 / 800 325 / 325 Balance 750 / 507.069 30.167 / 30.167 -325 / -294.833 Weight last 48 hrs Weight 367 lb Physical Exam Narrative: PHYSICAL EXAM: General: Morbidly obese, young female, lying in bed, extubated-opens eyes and follows commands HEENT:NCAT, PERRLA, EOMI Neck: Supple Lungs: Bilateral diffuse crackles Heart: s1/s2, RRR Abd: soft, NT, ND, BS + Normoactive Extremities: No edema, right forearm infiltrated 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 SKIN: Stage II ulcer dorsum of right hand LDA: # HD Cath : Placed 09/21/2022 #CVC: Right femoral line 09/08/2022 Urinary Catheter Management: Cha: Cath Placed During This Visit: yes, but has since been removed by the nurse Reason for Continuing Indwelling Catheter: Accurate Measurement of Urinary Output in Critically Ill Patients Urinary Catheter Date of Insertion: 09/23/22 Urinary Catheter Time of Insertion: 09:00 Date Urinary Catheter Removed: 09/23/22 Time Urinary Catheter Discontinued: 09:27 Data 09/26/22 04:25 09/26/22 04:25 Other Labs: Radiology Impressions Duplex Scan Upper Extremity Artery 09/08/22 20:22 IMPRESSION: 1. No evidence for major vessel occlusion or significant stenosis. 2. Other details discussed above. Renal Ultrasound 09/09/22 05:33 IMPRESSION: 1. No hydronephrosis of either kidney. 2. Technologist notes somewhat limited evaluation of the kidneys, due to patient condition and body habitus. 3. Other details discussed above. Chest CTA 09/13/22 10:26 IMPRESSION: 1. Very limited exam due to artifact from CT bore contact. 2. Nondiagnostic evaluation of the pulmonary arteries. 3. Complete atelectasis of both lower lobes and partial atelectasis of the left upper lobe. 4. Cardiac enlargement. 5. Enlarged main pulmonary artery suggests pulmonary hypertension. 6. Lexus hepatis and gastrohepatic ligament lymphadenopathy is partially imaged. Recommend follow-up abdomen pelvis CT. 7. Satisfactory position of lines and tubes. KUB X-Ray 09/20/22 08:46 IMPRESSION: 1. No acute process noted. 2. Enteric tube in place appearing to end in the body the stomach. Chest X-Ray 09/27/22 06:00 IMPRESSION: Extubation with stable abnormal chest. Laboratory Results WBC 7.4 10^3/uL (4.0-10.0) 09/27/22 03:50 RBC 3.96 10^6/uL (4.1-5.3) L 09/27/22 03:50 Hgb 11.1 g/dL (11.5-15.3) L 09/27/22 03:50 Hct 35.4 % (37.0-47.0) L 09/27/22 03:50 MCV 89.4 fl (81-99) 09/27/22 03:50 MCH 28.0 pg (28.0-34.0) 09/27/22 03:50 MCHC 31.4 g/dL (30.0-36.0) 09/27/22 03:50 RDW 14.0 % (12.1-15.1) 09/27/22 03:50 Plt Count 180 10^3/cmm (130-400) 09/27/22 03:50 MPV 10.3 fL (7.4-10.4) 09/27/22 03:50 Neut % (Auto) 66.4 % 09/27/22 03:50 Lymph % (Auto) 18.6 % 09/27/22 03:50 Lipscomb % (Auto) 8.5 % 09/27/22 03:50 Eos % (Auto) 5.1 % 09/27/22 03:50 Baso % (Auto) 0.5 % 09/27/22 03:50 Neut # (Auto) 4.93 10^3/uL (1.8-7.7) 09/27/22 03:50 Lymph # (Auto) 1.4 10^3/uL (0.8-4.8) 09/27/22 03:50 Lipscomb # (Auto) 0.6 10^3/uL (0.2-0.9) 09/27/22 03:50 Eos # (Auto) 0.4 10^3/uL (0.0-0.8) 09/27/22 03:50 Baso # (Auto) 0.0 10^3/uL (0.0-0.1) 09/27/22 03:50 Nucleated RBC % (auto) 0 % 09/27/22 03:50 Nucleated RBCs # 0.0 /100WBC 09/27/22 03:50 PT 14.40 SECONDS (12.1-14.9) 09/22/22 01:24 INR 1.08 (0.8-1.2) 09/22/22 01:24 APTT 43.5 SECONDS (23.9-36.7) H 09/20/22 03:10 D-Dimer 3.78 ug/mIFEU (0-0.59) H 09/15/22 17:57 Specimen Type Arterial 09/27/22 03:40 Sample Site Radial, left 09/27/22 03:40 ABG pH 7.27 (7.35-7.45) L 09/27/22 03:40 ABG pCO2 45.3 mmHg (35-45) H 09/27/22 03:40 ABG pO2 56.6 mmHg (80.0-100.0) L 09/27/22 03:40 ABG HCO3 20.7 mmol/L (22-26) L 09/27/22 03:40 ABG O2 Saturation 91.9 09/27/22 03:40 ABG Base Excess -6.1 mmol/L (-2.0-2.0) L 09/27/22 03:40 Haider Test Pos 09/27/22 03:40 A-a O2 Gradient 11.0 mmHg (5-10) H 09/27/22 03:40 Hematocrit 36.7 % (37-47) L 09/27/22 03:40 Hgb O2 Saturation 89.5 % (95-100) L 09/27/22 03:40 Carboxyhemoglobin 1.7 %THgb (0.4-20.1) 09/27/22 03:40 Methemoglobin 0.8 % (0.4-1.5) 09/27/22 03:40 Total Hemoglobin 12.0 g/dL (12-16) 09/27/22 03:40 Sodium 143.0 mmol/L (131-143) 09/27/22 03:40 Potassium 3.5 mmol/L (3.5-5.0) 09/27/22 03:40 Glucose 97.0 mg/dL (70-115) 09/27/22 03:40 Ionized Calcium 1.3 mmol/L (1.1-1.4) 09/27/22 03:40 Respiration Rate 22.0 % 09/25/22 04:00 O2 Delivery Device Bipap 09/27/22 03:40 O2 Liters/Min 7.0 % 09/08/22 15:57 SIMV 18.0 09/20/22 04:00 FiO2 28.0 % 09/27/22 03:40 Tidal Volume 0.50 09/27/22 03:40 PEEP 10.0 cmH20 09/27/22 03:40 Specimen Drawn By Issa 09/25/22 04:00 Disability Specialist ID [email or web address] 09/27/22 03:40 Sodium 140 mmol/L (136-145) 09/27/22 03:50 Potassium 3.4 mmol/L (3.5-5.1) L 09/27/22 03:50 Chloride 102 mmol/L (98-107) 09/27/22 03:50 Carbon Dioxide 20 mmol/L (22-29) L 09/27/22 03:50 Anion Gap 21.4 (5-19) H 09/27/22 03:50 BUN 53 mg/dL (6-20) H 09/27/22 03:50 Creatinine 4.6 mg/dL (0.5-0.9) H 09/27/22 03:50 GFR Calculation 10.4 mL/min (90-130) L 09/27/22 03:50 Glucose 93 mg/dL (65-115) 09/27/22 03:50 POC Glucose 98 mg/dL (70-110) 09/27/22 03:37 Estimat Average Glucose 114 09/12/22 03:59 Hemoglobin A1c 5.6 % (4.0-6.0) 09/12/22 03:59 Calculated Osmolality 304 mOsm/kg (285-295) H 09/27/22 03:50 Lactic Acid 1.6 mmol/L (0.5-2.2) 09/08/22 09:06 Lactate 0.9 mmol/L (0.5-2.2) 09/22/22 01:24 Calcium 9.7 mg/dL (8.5-10.5) 09/27/22 03:50 Phosphorus 3.6 mg/dL (2.5-4.5) 09/24/22 03:55 Magnesium 1.8 mg/dL (1.7-2.3) 09/24/22 03:55 Iron 46 ug/dL (37-145) 09/11/22 05:57 TIBC 271 mcg/dl 09/11/22 05:57 % Saturation 16.9 % (20-50) L 09/11/22 05:57 Unsat Iron Binding 225 ug/dL (112-347) 09/11/22 05:57 Total Bilirubin 0.4 mg/dL (0.15-1.2) 09/27/22 03:50 AST 20 U/L (0-32) 09/27/22 03:50 ALT 27 U/L (0-33) 09/27/22 03:50 Alkaline Phosphatase 71 U/L (35-105) 09/27/22 03:50 Creatine Kinase 225 U/L (26-192) H 09/10/22 03:30 CK-MB (CK-2) 14.9 ng/mL (0-5.34) H 09/10/22 03:30 CK-MB (CK-2) Rel Index 6.6 % (0.0-10.4) 09/10/22 03:30 Troponin T Gen 5 ng/L 162 ng/L (0-10) H* 09/22/22 09:00 Troponin T Baseline 120 ng/L (0-10) H* 09/21/22 10:15 Troponin T 120 Minute 130.9 ng/L (0-10) H 09/21/22 11:40 Delta Troponin T 10.9 ABS# (0-10) H* 09/21/22 11:40 Troponin T Hi Sens 6Hr 174.5 ng/L (0-10) H 09/21/22 16:16 Troponin T Hi Sens 6Hr Delta 54.5 ng/L (0-12) H* 09/21/22 16:16 C-Reactive Protein 17.4 mg/L (0.0-4.9) H 09/23/22 04:35 NT-Pro-B Natriuret Pep 2791 pg/mL (0-125) H 09/23/22 04:35 Total Protein 7.0 g/dL (6.6-8.7) 09/27/22 03:50 Albumin 3.9 g/dL (3.5-5.2) 09/27/22 03:50 Globulin 3.1 g/dL (1.3-4.6) 09/27/22 03:50 Triglycerides 313 mg/dL (0-150) H 09/12/22 03:59 Cholesterol 140 mg/dL (0-200) 09/12/22 03:59 LDL Cholesterol, Calc 49 mg/dL (50-129) L 09/12/22 03:59 Total VLDL Cholesterol 63 mg/dL (0-30) H 09/12/22 03:59 HDL Cholesterol 28 mg/dL (60-100) L 09/12/22 03:59 Cholesterol/HDL Ratio 5.00 mg/dL (0.0-4.40) H 09/12/22 03:59 Vitamin B12 514 pg/mL (232-1245) 09/11/22 05:57 Folate 8.9 ng/mL (4.8-37.3) 09/11/22 05:57 Procalcitonin 2.85 ng/mL (0-0.5) H 09/23/22 04:35 TSH 13.22 uIU/mL (0.27-4.20) H 09/22/22 14:01 Free T4 1.54 ng/dL (0.82-1.77) 09/22/22 14:01 Free T3 2.1 PG/ML (2.0-4.4) 09/22/22 14:01 Random Cortisol 2.67 ug/dL (2.47-19.5) 09/15/22 02:38 Urine Color Yellow (Yellow) 09/17/22 12:15 Urine Appearance Hazy (CLEAR) A 09/17/22 12:15 Urine pH 8 (5-7) H 09/17/22 12:15 Ur Specific [place] 1.010 (1.005-1.030) 09/17/22 12:15 Urine Protein Trace (Negative) 09/17/22 12:15 Urine Glucose (UA) Norm (Normal) 09/17/22 12:15 Urine Ketones Negative (Negative) 09/17/22 12:15 Urine Blood 3+ (Negative) H 09/17/22 12:15 Urine Nitrate Negative (Negative) 09/17/22 12:15 Urine Bilirubin Neg (Negative) 09/17/22 12:15 Prot Sulfosalicylic Acd Positive (Negative) 09/17/22 12:15 Urine Urobilinogen Norm mg/dL (Negative) 09/17/22 12:15 Ur Leukocyte Esterase 2+ (Negative) H 09/17/22 12:15 Urine RBC 25-40 /hpf (0-2) H 09/17/22 12:15 Urine WBC 55-80 /hpf (0-5) H 09/17/22 12:15 Ur Squamous Epith Cells 25-40 /hpf (0-5) H 09/17/22 12:15 Ur Transition Epith Cell 0-4 /hpf 09/10/22 12:30 Amorphous Sediment Not Reportable 09/17/22 12:15 Urine Bacteria 2+ /hpf (NONE) H 09/17/22 12:15 Urine Yeast 2+ /hpf H 09/17/22 12:15 Ur Random Sodium 93 mmol/L 09/09/22 01:10 Urine Creatinine 51 mg/dL (28-217) 09/09/22 01:10 Nasal Influ A H1 2008 PCR Not detected (NOT DETECT) 09/08/22 08:45 Bronch Specimen Source Left lower lobe 09/13/22 18:40 Bronchial Fluid Color Red 09/13/22 18:40 Bronchial Fluid Appearance Bloody (CLEAR) 09/13/22 18:40 Bronchial Fluid WBC 1361 /uL 09/13/22 18:40 Bronchial Fluid RBC 900 10^3/uL 09/13/22 18:40 Bronch Cells Counted 200 09/13/22 18:40 Bronchial Neutrophils 72.00 % (0.9-2.3) H 09/13/22 18:40 Bronchial Lymphocytes 26.00 % (10.71-12.91) H 09/13/22 18:40 Bronchial Eosinophils 1.00 % (0.13-0.25) H 09/13/22 18:40 Bronchial Macrophages 1.00 % (83.6-86.8) L 09/13/22 18:40 Bronchial Diff Comment Yes 09/13/22 18:40 Vancomycin Trough 19.0 ug/mL (10-15) H 09/22/22 01:24 Random Vancomycin 20.7 ug/mL (20.0-40.0) 09/26/22 04:25 Adenovirus (PCR) Not detected (NOT DETECT) 09/08/22 08:45 C. pneumoniae DNA (PCR) Not detected (NOT DETECT) 09/08/22 08:45 Coronavirus 229E (PCR) Not detected (NOT DETECT) 09/08/22 08:45 Hepatitis A IgM Ab Non-reactive (Nonreactive) 09/11/22 05:57 Hep Bs Antigen Non-reactive (Nonreactive) 09/11/22 05:57 Hep Bs Antibody 12.8 (11.5-1000) 09/11/22 05:57 Hep B Core Total Ab Non-reactive (Nonreactive) 09/11/22 05:57 Hepatitis C Antibody Non-reactive (Nonreactive) 09/11/22 05:57 Human Metapneumovir PCR Not detected (NOT DETECT) 09/08/22 08:45 Influenza A (H1) PCR Not detected (NOT DETECT) 09/08/22 08:45 Influenza A (H3) PCR Not detected (NOT DETECT) 09/08/22 08:45 Influenza Type A (PCR) Not detected (NOT DETECT) 09/08/22 08:45 Influenza Type B (PCR) Not detected (NOT DETECT) 09/08/22 08:45 M. pneumoniae (PCR) Not detected (NOT DETECT) 09/08/22 08:45 Parainfluenza 1 (PCR) Not detected (NOT DETECT) 09/08/22 08:45 Parainfluenza 2 (PCR) Not detected (NOT DETECT) 09/08/22 08:45 Parainfluenza 3 (PCR) Not detected (NOT DETECT) 09/08/22 08:45 Parainfluenza 4 (PCR) Not detected (NOT DETECT) 09/08/22 08:45 RSV Type A (PCR) Not detected (NOT DETECT) 09/08/22 08:45 RSV Type B (PCR) Not detected (NOT DETECT) 09/08/22 08:45 Entero/Rhino (PCR) Not detected (NOT DETECT) 09/08/22 08:45 SARS-CoV-2 (PCR) Not detected (NOT DETECT) 09/08/22 08:45 Micro: Microbiology 09/25/22 18:20 Catheter Tip Culture - Preliminary Central Line 09/24/22 10:30 Blood Culture - Preliminary Blood Gram positive cocci A&P Assessment and plan (1) Acute respiratory failure with hypoxia and hypercapnia: (2) Obstructive sleep apnea: (3) Pneumonia: (4) Flash pulmonary edema: (5) Acute kidney injury: (6) ARDS (adult respiratory distress syndrome): (7) Open wound of right hand: (8) NSTEMI (non-ST elevated myocardial infarction): (9) Duodenal ulcer: (10) Atrial fibrillation with RVR: Plan ASSESSMENT/PLAN:Overall: 42-year-old young female with past medical history of hypertension-noncompliant with her medications-initially comes with hypertensive emergency with flash pulmonary edema-treated with nicardipine drip-becomes hypotensive-started on pressors and antibiotics for presumed sepsis. She went into respiratory failure requiring mechanical ventilation support and currently extubated and dependent on BiPAP. She also developed BRIDGETTE requiring temporary hemodialysis. NEURO: #Sedation -Patient is awake and following commands -Patient received fentanyl and she was intubated-tapering of fentanyl because of tachycardia-recommended to do [place] as needed and slowly taper down PULM: #Acute hypoxic and hypercapnic respiratory failure-probably there is a chronic component given her morbid obesity -Acute component secondary to flash pulmonary edema due to hypertensive emergency - -She was extubated successfully to BiPAP and currently dependent on BiPAP -ABG appreciated and she has very good oxygenation but there is mixed respiratory metabolic acidosis -She needs aggressive postintubation pulmonary rehabilitation and physical therapy-plan is to transfer to LTAC -She underwent CTA for increasing oxygen requirements-there was a lot of motion artifact and CT was nondiagnostic for pulmonary arteries. There is moderate cardiac enlargement and enlarged main pulmonary artery suggesting pulmonary hypertension. There was partial atelectasis of left upper lobe and complete atelectasis of both lower lobes. -We have to stop for IV heparin due to coffee-ground NG secretions as well as rectal secretions-EGD showed shallow bleeding ulcers-she was given PPI and sucralfate -She underwent bronchoscopic evaluation for airways 09/13/2022-there were thick mucus secretions in bilateral lower lobes which were suctioned-BAL neutrophils predominant-final cultures negative -She is on scheduled nebulization with DuoNeb as well as Pulmicort -Currently held Bumex 2 Mg Q8 as well as hemodialysis; she started to make good urine output CVS: #Hypertensive emergency-treated with nicardipine [id number] circulatory shock-likely secondary to possible nicotine toxicity or demand ischemia due to underlying? Sepsis #A-fib RVR -Rate control with Cardizem and metoprolol; patient is on amiodarone -Echocardiogram during admission showed normal LV size, systolic function with EF 60%. Grade 1 diastolic dysfunction. -Elevated BNP -Currently held Bumex 2 Mg every 8 hours and hemodialysis-improving urine output -On midodrine 10 Mg p.o. as needed -Continue close hemodynamic and cardiac monitoring GI: #Diet: Bedside swallow and start clear diet #GI prophylaxis: PPI every 12 hours and sucralfate #LFTs: elevated - monitor RENAL: #BRIDGETTE-most likely prerenal secondary to ischemic ATN due to hypotension/? Contrast-induced nephropathy-likely recovering -Currently held Bumex and hemodialysis-improving urine output -Electrolytes are acceptable - HEM: #GI bleed -EGD today showed shallow duodenal ulcers and received epinephrine injection -PPI every 12 hours and sucralfate -H&H stable -We will monitor H&H -Held her IV heparin -Monitor H&H #WBC-normal #H&H stable #Normal platelets ENDO: #Significantly elevated TSH-suspect hypothyroidism-patient on levothyroxine 50 mcg q. p.o. daily-she may need to follow-up as outpatient #Normal blood sugars #Possible underlying adrenal insufficiency-held steroids due to duodenal ulcers ID: #Presumably met sepsis criteria #Low-grade temperature spikes- #Stage II ulcer on dorsum of hand-surgery to evaluate -Pulmonary infiltrates on imaging-with leukocytosis-and hypotension-there was a suspicion if it is all septic shock secondary to pneumonia; -However infiltrates can be explained with fluid overload, hypotension secondary to Cardene drip -Patient procalcitonin is low -Repeat blood cultures sent today 09/16/22 -06/28 bottle Staph epidermidis-likely contaminant -Repeat blood cultures 09/24/2022 showed gram-positive cocci; right femoral line removed-catheter tip culture sent -Currently still on vancomycin and Zosyn-no more fever spikes -BAL neutrophil predominance-final cultures negative Code Status: Full code Disposition: ICU Critically ill: Yes MD discussed with: Hospitalist, RN, RT taking care of the patient ICU CHECKLIST: Problem list updated Verbal orders reviewed and signed Analgesia: [place] Glycemic Control: N/A Nutrition: Bedside swallow eval and start clear liquids Restraint Renewal (within 24 hrs): Yes Ulcer Prophylaxis: PPI Chemical Thromboprophylaxis: Prophylaxis: na-GI bleed Mechanical Thromboprophylaxis: SCDs Need for Central line: N/A-removed Need for Cha catheter: Yes for urine output monitoring Attestations Medical Necessity Statement*: Plan is to transfer to LTAC today Time Spent in Patient Care: Greater than 35 minutes (>than 50% of time spent in counselling and/or direct pt care on unit) . Critical Care Time: This patient has a high probability of? clinically sig nificant, sudden o r life threatening deterioration of the patient's (jonathan rological/pulmonar y/cardiac/renal/ID /endocrine) system s required my full , direct attention , the highest leve l of physician pre paredness for urge nt intervention an d personal managem ent.? I managed/meade pervised life or o rgan supporting in terventions that r equired frequent p hysician assessmen t.? I devoted my f ull attention in t he ICU to the dire ct care of this pa tient for the kareen od of time indicat ed above.? Time I spent with family or surrogate(s) is included only if the patient was in capable of providi ng necessary infor mation or particip ating in decision making.? This annie e includes the fol [facility] services pr ovided: Telemetry review Mechanical Ventilation Hemod ynamic interpretat ion, assessment an d management Revie w and interpretati on of CXR Review a nd interpretation of lab values Revi ew and interpretat ion of microbiolog ic data and cultur e results Review o f medications and administration Rev iew and interpreta tion of Nutrition requirements and m anagement Discussi on of management w ith other consulta nts and services C linical update to family members [x ] Data and vital s ign review and int erpretation [x] Pa tiesherine assessment, examination and in tervention [x] Doc umentation [x] Med ication orders and management Time spent for teaching as well as perfor aydin procedures ar e billed separatel y and is not inclu ded in this note ? Critical Care Annie e (min): 67 Procedures Arterial Line Size (Gauge): 20 Coding Level of Care Code Critical Care >/= 30 minutes Diagnoses Acute respiratory failure with hypoxia and hypercapnia J96.01; J96.02 Obstructive sleep apnea G47.33 Pneumonia J18.9 Flash pulmonary edema J81.0 Acute kidney injury N17.9 ARDS (adult respiratory distress syndrome) J80 Open wound of right hand S61.401A NSTEMI (non-ST elevated myocardial infarction) I21.4 Duodenal ulcer K26.9 Atrial fibrillation with RVR I48.91 Time Spent (min) 37
--- NOTE | 2022-09-26 17:44 | PM.PN ---
Subjective Subjective: Patient is stable. Responding approriately. On BIPAP. Vitals/I&O/Wt Last Vital Signs Temp 98.4 F 09/26/22 08:00 Pulse 105 H 09/26/22 16:01 Resp 25 H 09/26/22 16:00 BP 117/89 09/26/22 16:00 Pulse Ox 94 09/26/22 16:01 O2 Del Method 09/26/22 16:00 O2 Flow Rate 40 09/25/22 07:34 FiO2 28 09/26/22 16:01 09/26/22 09/26/22 09/26/22 06:59 14:59 22:59 Intake Total 1050 / 1307.069 30.167 / 30.167 Output Total 300 / 800 325 / 325 Balance 750 / 507.069 30.167 / 30.167 -325 / -294.833 Weight last 48 hrs Weight 367 lb Physical Exam Narrative: GENERAL: Patient on bipap HEART: Irregularly irregular, tachycardic LUNGS: Diminished air entry ABDOMEN: Soft EXTREMITIES: Lower extremities with 1+ edema bilaterally. Urinary Catheter Management: Cha: Cath Placed During This Visit: yes, but has since been removed by the nurse Reason for Continuing Indwelling Catheter: Accurate Measurement of Urinary Output in Critically Ill Patients Urinary Catheter Date of Insertion: 09/23/22 Urinary Catheter Time of Insertion: 09:00 Date Urinary Catheter Removed: 09/23/22 Time Urinary Catheter Discontinued: 09:27 Data 09/26/22 04:25 09/26/22 04:25 Micro: Microbiology 09/25/22 18:20 Catheter Tip Culture - Preliminary Central Line 09/24/22 10:30 Blood Culture - Preliminary Blood Gram positive cocci A&P Assessment and plan (1) Atrial fibrillation with RVR: (2) Duodenal ulcer: (3) GI bleed: (4) Shock: (5) ARDS (adult respiratory distress syndrome): (6) Acute respiratory failure with hypoxia and hypercapnia: (7) Obstructive sleep apnea: (8) Acute kidney injury: (9) Sepsis: (10) Pneumonia: Plan Heart rate is better controlled currently. Back on cardizem gtt. Continue metoprolol and amiodarone. Can switch back to PO cardizem Medical management per primary team Thank you for involving us with care of this patient. We will continue to follow. Please call with questions. Attestations Medical Necessity Statement*: Care expected to cross 2 midnights. Procedures Arterial Line Size (Gauge): 20 Coding Level of Care Code Acute Code for Chg Fwd Diagnoses Atrial fibrillation with RVR I48.91 Duodenal ulcer K26.9 GI bleed K92.2 Shock R57.9 ARDS (adult respiratory distress syndrome) J80 Acute respiratory failure with hypoxia and hypercapnia J96.01; J96.02 Obstructive sleep apnea G47.33 Acute kidney injury N17.9 Sepsis A41.9 Pneumonia J18.9
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
[2022-09-26] MEDS: atorvastatin 40 mg Tablet PO (20:09)
[2022-09-26] MEDS: dilTIAZem 60 mg Tablet PO (20:09)
[2022-09-26] MEDS: dilTIAZem 100 MG in sodium chloride 0.9% (add-van) 100 ML 12.5 MG IV (20:10)
[2022-09-26 20:20] LABS: Glucose Point of Care 100 mg/dL (70-110)
[2022-09-26] MEDS: artificial tears Op Oint 3.5 gm 1 APPLIC EYE-BOTH (20:32)
[2022-09-27] VITALS (21 sets, daily range): BP systolic 106–143; BP diastolic 72–91; PULSE 98–131; RESP 18–28; TEMP 36.9–37.4; O2SAT 92–98
[2022-09-27] MEDS: piperacillin-tazobactam 3.375 GM in sodium chloride 0.9% (plus) 50 ML IV (02:02)
[2022-09-27] MEDS: dilTIAZem 60 mg Tablet PO ×2 (02:02→07:57)
[2022-09-27] MEDS: levalbuterol 0.63 mg/3 mL Neb INHALATION ×2 (02:24→07:47)
[2022-09-27] MEDS: ipratropium 0.5 mg/2.5 mL Neb INHALATION ×2 (02:24→07:47)
[2022-09-27 03:42] LABS: Glucose Point of Care 98 mg/dL (70-110)
[2022-09-27 03:42] LABS: Glucose Point of Care 97 mg/dL (70-110)
[2022-09-27 03:49] LABS: ABG PCO2 45.3 mmHg (35-45); ABG PH Result 7.27 (7.35-7.45); Arterial Blood Gas Hematocrit 36.7 % (37-47); Base Excess ABG -6.1 mmol/L (-2.0-2.0); Blood Gas Allen Test Pos; Blood Gas Sample Type Arterial; Carboxyhemoglobin 1.7 %THgb (0.4-20.1); HCO3 ABG 20.7 mmol/L (22-26); HGB O2 Sat 89.5 % (95-100); Ionized Calcium Level - ABG 1.3 mmol/L (1.1-1.4); Methemoglobin 0.8 % (0.4-1.5); Oxygen Saturation ABG 91.9; PO2 ABG 56.6 mmHg (80.0-100.0); Potassium Level - ABG 3.5 mmol/L (3.5-5.0)
[2022-09-27 03:53] LABS: Blood Gas Sample Site Radial, left; Oxygen Device BIPAP
[2022-09-27 04:18] LABS: Basophils % 0.5 %; Eosinophils # 0.4 10^3/uL (0.0-0.8); Eosinophils % 5.1 %; Hematocrit 35.4 % (37.0-47.0); Hemoglobin 11.1 g/dL (11.5-15.3); Lymphocytes # 1.4 10^3/uL (0.8-4.8); Lymphocytes % 18.6 %; Mean Corpuscular HGB Conc 31.4 g/dL (30.0-36.0); Mean Corpuscular Volume 89.4 fl (81-99); Mean Platelet Volume 10.3 fL (7.4-10.4); Monocytes # 0.6 10^3/uL (0.2-0.9); Monocytes % 8.5 %; Neutrophils # 4.93 10^3/uL (1.8-7.7); Neutrophils % 66.4 %; Nucleated Red Blood Cells % 0 %; Platelet Count 180 10^3/cmm (130-400); Red Blood Count 3.96 10^6/uL (4.1-5.3); White Blood Count 7.4 10^3/uL (4.0-10.0)
[2022-09-27 04:54] LABS: Alanine Aminotransferase 27 U/L (0-33); Albumin Level 3.9 g/dL (3.5-5.2); Alkaline Phosphatase 71 U/L (35-105); Anion Gap 21.4 (5-19); Aspartate Amino Transferase 20 U/L (0-32); Blood Urea Nitrogen 53 mg/dL (6-20); Calcium 9.7 mg/dL (8.5-10.5); Carbon Dioxide 20 mmol/L (22-29); Chloride 102 mmol/L (98-107); Globulin 3.1 g/dL (1.3-4.6); Glomerular Filtration Rate 10.4 mL/min (90-130); Glucose 93 mg/dL (65-115); Osmolality Calculated 304 mOsm/kg (285-295); Potassium 3.4 mmol/L (3.5-5.1); Sodium 140 mmol/L (136-145); Total Bilirubin 0.4 mg/dL (0.15-1.2)
[2022-09-27] MEDS: sucralfate 1 gm Tablet PO (05:41)
--- NOTE | 2022-09-27 06:00 | XR_ITS ---
WS: [id number] XR chest 1V portable [id number] REASON FOR EXAM: intubation FINDINGS: Endotracheal tube has been removed. Left internal jugular dialysis catheter remains in position as does the nasogastric tube. There is central vascular congestion and central interstitial reticular lung opacities indicating pul monary edema. This appears to be relatively stable compared to 09/23 and 09/25/2022. XR/XR chest 1V portable [id number] IMPRESSION: Extubation with stable abnormal chest.
[2022-09-27] MEDS: ondansetron 2 mg/ML SDV 2 mL 4 MG IVP (07:15)
[2022-09-27] MEDS: budesonide 0.5 mg/2 mL Neb INHALATION (07:47)
[2022-09-27] MEDS: quetiapine 25 mg Tablet 50 MG PO (07:58)
[2022-09-27] MEDS: heparin 5,000 unit/mL INJ 1 mL 5000 UNIT SUBCUT (07:58)
[2022-09-27] MEDS: amiodarone 200 mg Tablet 400 MG PO (07:58)
[2022-09-27] MEDS: pantoprazole 40 mg SDV IVP (07:58)
[2022-09-27] MEDS: docusate sodium 10 mg/mL (5ml) Liq 50 MG PO (07:59)
--- NOTE | 2022-09-27 08:46 | P.PN_ITS ---
Subjective Subjective: Patient is stable. Heart rate is still fluctuating. Vitals/I&O/Wt Last Vital Signs Temp 98.4 F 09/27/22 07:42 Pulse 131 H 09/27/22 08:05 Resp 22 H 09/27/22 07:48 BP 115/77 09/27/22 07:42 Pulse Ox 94 09/27/22 07:54 O2 Del Method 09/27/22 07:48 O2 Flow Rate 40 09/25/22 07:34 FiO2 28 09/27/22 07:54 09/26/22 09/27/22 09/27/22 22:59 06:59 14:59 Intake Total 632.958 / 663.125 50.708 / 713.833 0 / 0 Output Total 2253 / 2253 225 / 2478 Balance -1620.042 / -1589.875 -174.292 / -1764.167 0 / 0 Weight last 48 hrs Weight 365 lb 15.477 oz Physical Exam Narrative: GENERAL: Patient on bipap HEART: Irregularly irregular, tachycardic LUNGS: Diminished air entry ABDOMEN: Soft EXTREMITIES: Lower extremities with 1+ edema bilaterally. Urinary Catheter Management: Cha: Cath Placed During This Visit: yes, but has since been removed by the nurse Reason for Continuing Indwelling Catheter: Accurate Measurement of Urinary Output in Critically Ill Patients Urinary Catheter Date of Insertion: 09/23/22 Urinary Catheter Time of Insertion: 09:00 Date Urinary Catheter Removed: 09/23/22 Time Urinary Catheter Discontinued: 09:27 Data 09/27/22 03:50 09/27/22 03:50 Micro: Microbiology 09/25/22 18:20 Catheter Tip Culture - Preliminary Central Line A&P Assessment and plan (1) Atrial fibrillation with RVR: (2) Duodenal ulcer: (3) GI bleed: (4) Shock: (5) ARDS (adult respiratory distress syndrome): (6) Acute respiratory failure with hypoxia and hypercapnia: (7) Obstructive sleep apnea: (8) Acute kidney injury: (9) Sepsis: (10) Pneumonia: Plan Heart rate still fluctuating. Continue metoprolol and Cardizem. Continue amiod arone. Patient is stable to be transferred to LTAC. Attestations Medical Necessity Statement*: Care expected to cross 2 midnights. Procedures Arterial Line Size (Gauge): 20 Coding Level of Care Code Acute Code for Chg Fwd Diagnoses Atrial fibrillation with RVR I48.91 Duodenal ulcer K26.9 GI bleed K92.2 Shock R57.9 ARDS (adult respiratory distress syndrome) J80 Acute respiratory failure with hypoxia and hypercapnia J96.01; J96.02 Obstructive sleep apnea G47.33 Acute kidney injury N17.9 Sepsis A41.9 Pneumonia J18.9
--- NOTE | 2022-09-27 09:35 | PM.PN ---
Subjective Subjective: s/p hd YESTERDAY Medications: Reviewed: Yes Vitals/I&O/Wt Last Vital Signs Temp 98.4 F 09/27/22 07:42 Pulse 131 H 09/27/22 08:05 Resp 22 H 09/27/22 07:48 BP 115/77 09/27/22 07:42 Pulse Ox 94 09/27/22 07:54 O2 Del Method 09/27/22 07:48 O2 Flow Rate 40 09/25/22 07:34 FiO2 28 09/27/22 07:54 09/26/22 09/27/22 09/27/22 22:59 06:59 14:59 Intake Total 632.958 / 663.125 50.708 / 713.833 0 / 0 Output Total 2253 / 2253 225 / 2478 Balance -1620.042 / -1589.875 -174.292 / -1764.167 0 / 0 Weight last 48 hrs Weight 166 kg Physical Exam Narrative: ON BIPAP Urinary Catheter Management: Cha: Cath Placed During This Visit: yes, but has since been removed by the nurse Reason for Continuing Indwelling Catheter: Accurate Measurement of Urinary Output in Critically Ill Patients Urinary Catheter Date of Insertion: 09/23/22 Urinary Catheter Time of Insertion: 09:00 Date Urinary Catheter Removed: 09/23/22 Time Urinary Catheter Discontinued: 09:27 Data 09/27/22 03:50 09/27/22 03:50 Micro: Microbiology 09/25/22 18:20 Catheter Tip Culture - Preliminary Central Line A&P Assessment and plan (1) Acute kidney injury: Plan 1. Acute kidney injury. Different includes contrast nephropathy, sepsis, acute interstitial nephritis, hemodynamic. . Due to high O2 requirement and worsening renal function patient was started on HD. Would like to keep her on a negative fluid balance, Eval daily for hD needs. baseline creatinine was normal prior to admission at 0.5. Status post permacath placement due to no improvement in renal function , -Pt extubated , on BIPAP , 40 % fio2 , S/P HD yesterday 2. Volume overload: on HD , , 3. Primary respiratory acidosis, hypercapneic respiratory failure on ventilator, 40 percent FiO2% fio2 4. sepsis with pneumonia 6. HTN Attestations Medical Necessity Statement*: per medicine Procedures Arterial Line Size (Gauge): 20 Coding Level of Care Code Acute Code for Chg Fwd Diagnoses Acute kidney injury N17.9
--- NOTE | 2022-09-27 09:40 | PC.NURSE ---
Updated trip for transfer Trip number through [employer] is [id number]. [facility] pickup time is 1200. Family is at bedside.
--- NOTE | 2022-09-27 10:21 | PC.NURSE ---
Report to [facility] Updated report called to Sandra at [facility].
--- NOTE | 2022-09-27 10:25 | P.PN_ITS ---
Subjective Subjective: Patient was discharged to LTAC yesterday but could not go because of issues with transportation. Overnight patient has remained hemodynamically stable and afebrile. Patient is awake and alert on BiPAP. At this point patient is BiPAP dependent. ABG from today morning appreciated. Went dialysis yesterday. Good urine output. Net 16.8 L negative since admission. Possible plan to transfer to LTAC today if transportation can be arranged. Care plan discussed in detail with patient and patient's mother at bedside all the questions were answered. They were thankful for the care they received in the hospitalization. Medications: Reviewed: Yes Vitals/I&O/Wt Last Vital Signs Temp 98.4 F 09/27/22 07:42 Pulse 113 H 09/27/22 10:00 Resp 19 H 09/27/22 10:00 BP 134/90 09/27/22 10:00 Pulse Ox 94 09/27/22 10:00 O2 Del Method 09/27/22 07:48 O2 Flow Rate 40 09/25/22 07:34 FiO2 28 09/27/22 10:00 09/26/22 09/27/22 09/27/22 22:59 06:59 14:59 Intake Total 632.958 / 663.125 50.708 / 713.833 0 / 0 Output Total 2253 / 2253 225 / 2478 Balance -1620.042 / -1589.875 -174.292 / -1764.167 0 / 0 Weight last 48 hrs Weight 166 kg Physical Exam Narrative: Intubated sedated on mechanical ventilation. Well sedated today Const: COMMON NORMALS: patient oriented x3 HENMT: COMMON NORMALS: normocephalic, atraumatic and hearing grossly normal bilaterally HEAD & SCALP: normocephalic and atraumatic Resp: COMMON NORMALS: clear to auscultation bilaterally AUSCULTATION: clear to auscultation bilaterally OTHER: Diminished air entry bilaterally mostly in the left lower lobe Cardio: COMMON NORMALS: regular rate, regular rhythm, S1 normal heart sound present, S2 normal heart sound present, No gallops present (Cardio), No murmurs present (Cardio), No rub (Cardio) and Peripheral pulses 2+ throughout RATE: regular rate RHYTHM: regular rhythm HEART SOUNDS: S1 normal heart sound present and S2 normal heart sound present PERIPHERAL PULSES: Peripheral pulses 2+ throughout GI: COMMON NORMALS: Normal to inspection, nondistended, normoactive bowel sounds present, Soft to palpation, non-tender, No hepatosplenomegaly present and no masses AUSCULTATION: Yes normoactive bowel sounds PALPATION: Yes Soft to palpation and Yes No hepatosplenomegaly present RECTAL EXAM: deferred Extremity: COMMON NORMALS: no clubbing, cyanosis or edema and no pedal edema Neuro: COMMON NORMALS: patient oriented x3 Skin: OTHER: Blister present in right dorsum of the hand secondary to infiltration earlier in the admission which has popped now. Slight mottling present at periphery of both hands and toes. Pulses bilaterally palpable, peripheries warm, Slight generalized rash present on the chest maculopapular Urinary Catheter Management: Cha: Cath Placed During This Visit: yes, but has since been removed by the nurse Reason for Continuing Indwelling Catheter: Accurate Measurement of Urinary Outpu t in Critically Ill Patients Urinary Catheter Date of Insertion: 09/23/22 Urinary Catheter Time of Insertion: 09:00 Date Urinary Catheter Removed: 09/23/22 Time Urinary Catheter Discontinued: 09:27 Data 09/27/22 03:50 09/27/22 03:50 Micro: Microbiology 09/25/22 18:20 Catheter Tip Culture - Preliminary Central Line A&P Assessment and plan (1) Acute kidney injury: (2) Gram-positive bacteremia: (3) Type 2 AMI (acute myocardial infarction): (4) Tachycardia, unspecified: (5) Duodenal ulcer: (6) Atrial fibrillation with RVR: (7) GI bleed: Post EGD. Showing shallow ulcers requiring epinephrine. Continue with Protonix twice daily, Carafate ACHS. (8) Open wound of right hand: (9) Ventilator dependent: Extubated 09/25 (10) Goals of care, counseling/discussion: (11) Fever: (12) Dialysis patient: (13) Shock: Resolved. (14) S/P bronchoscopy with bronchoalveolar lavage: On 09/13. Encountered high mucus in left lower lobe. Follow cultures. Patient desaturated during procedures to high 70s and low 80s but otherwise tolerated procedure well. (15) ARDS (adult respiratory distress syndrome): (16) Acute respiratory failure with hypoxia and hypercapnia: (17) Obstructive sleep apnea: (18) Sepsis: (19) Pneumonia: Plan 42 year old female with known past medical history of hypertension noncompliant with antihypertensive medication, morbid obesity, was accepted as a direct transfer, she was initially admitted for the management of substernal chest pain, associated with acute onset of worsening shortness of breath. Assessment: ARDS: Hypoxic and hypercapnic respiratory failure: Extubated on 09/25 to AVAPS. Most likely in setting of decompensated congestive heart failure in setting of hypertensive emergency and acute kidney dysfunction in setting of obstructive sleep apnea and pneumonia. Repeat ABG in evening. Daily ABG and x-ray for now. Out of bed to chair/PT OT ST evaluation tomorrow. Maintain NG tube for now. Diastolic congestive heart failure: Echocardiogram done during hospitalization showed an EF of 60% grade 1 diastolic dysfunction. Patient overall 14 to 15 L negative. Making good amount of urine. Bumex as needed. Fluid restriction as possible. Pulmicort twice daily, ipratropium and Xopenex every 6 hourly. Appreciate pulmonology recommendations. Coag negative bacteremia/Staph epidermidis bacteremia: Repeat blood cultures from 09/24 again 1 out of 4 blood cultures positive. Removed femoral line. Send tip for Cx. Peripheral access. If needed can plan for mid line. For now continue with vancomycin and Zosyn. Fever: Continue to monitor. Could be secondary to atelectasis versus possibility of ulcer secondary to thrombophlebitis on right arm. Wound care open to air for today. Antibiotic as above. A-fib with RVR: Continue with amiodarone 4 mg twice daily for 7 days followed by 200 mg twice daily. Metoprolol 100 mg twice daily, Cardizem 90 mg every 6 hourly. Cannot rule out withdrawing to pain medication. Start on [place] 7.5 mg every 6 hourly as needed, Seroquel 50 mg twice daily. Type II MT: Heparin stopped recently because of GI bleed. Continue to monitor. Cardiology recommendations appreciated. Anemia: Secondary to GI bleed: Appreciate surgical recommendations. Duodenal ulcer managed through epinephrine. Continue Protonix twice daily, Carafate every 6. Monitor hemoglobin daily for now. Hemoglobin remained stable for next 48 hours we will plan to start on anticoagulation given A-fib with RVR. BRIDGETTE requiring hemodialysis: Post permacath placement. Good urine output for now. Hold off on dialysis or diuresis. Monitor BMP daily. Appreciate nephrology recommendations Analgesia: [place] 7.5 every 6 hourly as needed, Tylenol as needed Glycemic control: Hypoglycemia protocol Nutrition: Speech evaluation tomorrow. Start on tube feeds versus oral diet cu rrently. CODE STATUS: Discussed in detail with patient mother and who is the DPOA at bedside. Patient is full code. We discussed need for dialysis for quick improvement. Family verbalized understanding and are agreeable. PUD prophylaxis: Protonix DVT prophylaxis: SCDs, Discharge planning: Likely will require LTAC placement given prolonged intubation. We will plan for possible extubation depending on clinical picture within next 48 hours. Continue with care at ICU 09/23: Care discussed in detail with patient's mother at bedside. We discussed regarding recent GI bleed, A-fib with RVR, improving ventilator settings StoCare becoming complicated by A-fib with RVR, GI bleed with anemia requiring transfusion, BRIDGETTE requiring dialysis and possible need of anticoagulation for ongoing AF with RVR for stroke prevention. All the questions were answered. Patient remains critically sick Plan for the day: Follow-up blood cultures. Continue with IV antibiotics. Femoral Central line removed. Continue with oral amiodarone. Continue with oral Cardizem. Give 1 dose of IV Dilaudid. Hold off on starting IV rate limiting drugs. Continue with current BiPAP settings. We will try to get patient off BiPAP to heated high flow for a short while if possible. Possible transfer to LTAC if transportation can be arranged. Hold off on dialysis today. Hold off on diuresis. Strict input output charting. Daily CBC and CMP. Date of discharge 09/27. Attestations Medical Necessity Statement*: Requires further hospitalization for BiPAP dependence in view of severe obstructive sleep apnea, congestive heart failure, BRIDGETTE on dialysis, A-fib with RVR while safe discharge planning for long-term care is sought. Procedures Arterial Line Size (Gauge): 20 Coding Level of Care Code Critical Care >/= 30 minutes Critical care time (in minutes): 60 The high probability of a clinically significant, sudden or life threatening deterioration, as referenced in this documentation, required my full and direct attention, intervention and personal management. The critical care time shown is in addition to time spent performing any reported separately billable procedures and includes the following: [x] Data and vital sign review and interpretation [x ] Patient assessment, examination and intervention [x] Medication orders and management [x] Patient/Family updates as able [x] Care Coordination and Documentation. Other Coding Information This patient has a high probability of clinically significant, sudden or life threatening deterioration of the patient's (neurological/pulmonary/cardiac/renal/ID/endocrine) systems required my full, di rect attention, the highest level of physician preparedness for urgent intervention and personal management. I managed/supervised life or organ supporting interventions that required frequent physician assessment. I devoted my full attention in the ICU to the direct care of this patient for the period of time indicated above. Time I spent with family or surrogate(s) is included only if the patient was incapable of providing necessary information or participating in decision making. This time includes the following services provided: Telemetry review BiPAP ventilation Hemodynamic interpretation, assessment and management Review and interpretation of CXR Review and interpretation of lab values Review and interpretation of microbiologic data and culture results Review of medications and administration Review and interpretation of Nutrition requirements and management Discussion of management with other consultants and services Clinical update to family members Diagnoses Acute kidney injury N17.9 Gram-positive bacteremia R78.81 Type 2 AMI (acute myocardial infarction) I21.A1 Tachycardia, unspecified R00.0 Duodenal ulcer K26.9 Atrial fibrillation with RVR I48.91 GI bleed K92.2 Open wound of right hand S61.401A 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
--- NOTE | 2022-09-27 12:16 | PC.NURSE ---
Transfer [facility] here to transport pt via gurney to [facility]. Pt placed on EMS bipap using existing settings. Pt's mom Dasha at bedside. [facility] notified of pt leaving.
== END 2022-09-27 12:22 | DRG 207 ==
PROVIDERS: Family Medicine; Hospitalist; Internal Medicine; Internal Medicine Pulmonary Disease; Surgery; Admitting Provider Internal Medicine; PCP Nurse Practitioner Family; Visit Provider Student in an Organized Health Care Education/Training Program
PROC: 0DJ08ZZ Inspection of Upper Intestinal Tract, Via Natural or Artificial Opening Endoscopic (ICD-10-PCS; CPT 43235; principal; 2022-09-20 18:00)
DX: J81.0 Acute pulmonary edema (principal); A41.9 Sepsis, unspecified organism; R65.21 Severe sepsis with septic shock; J18.9 Pneumonia, unspecified organism; N17.0 Acute kidney failure with tubular necrosis; K26.4 Chronic or unspecified duodenal ulcer with hemorrhage; J80 Acute respiratory distress syndrome; I21.A1 Myocardial infarction type 2; L98.498 Non-pressure chronic ulcer of skin of other sites with other specified severity; E66.2 Morbid (severe) obesity with alveolar hypoventilation; Z68.43 Body mass index [BMI] 50.0-59.9, adult; I16.1 Hypertensive emergency; E87.20 Acidosis, unspecified; T17.590A Other foreign object in bronchus causing asphyxiation, initial encounter; I11.0 Hypertensive heart disease with heart failure; I50.33 Acute on chronic diastolic (congestive) heart failure; Y95 Nosocomial condition; I48.91 Unspecified atrial fibrillation; I80.8 Phlebitis and thrombophlebitis of other sites; D64.9 Anemia, unspecified; M79.89 Other specified soft tissue disorders; Z87.891 Personal history of nicotine dependence; I95.9 Hypotension, unspecified; E87.5 Hyperkalemia; R19.7 Diarrhea, unspecified; N14.11 Contrast-induced nephropathy; T50.8X5A Adverse effect of diagnostic agents, initial encounter; E03.8 Other specified hypothyroidism; X58.XXXA Exposure to other specified factors, initial encounter
CPT/HCPCS: 12345; 31622; 36415; 36416; 36592; 36600; 51702; 71045; 71275; 74018; 76770; 77001; 80048; 80051; 80053; 80061; 80202; 80503; 81001; 82274; 82330; 82533; 82550; 82553; 82575; 82607; 82746; 82803; 82805; 82962; 83036; 83540; 83550; 83605; 83630; 83735; 83880; 84100; 84145; 84300; 84439; 84443; 84481; 84484; 85025; 85378; 85610; 85730; 86140; 86403; 86705; 86706; 86709; 86803; 87040; 87070; 87075; 87077; 87086; 87186; 87205; 87340; 87449; 87486; 87493; 87506; 87581; 87633; 87641; 88305; 89050; 90935; 93005; 93308; 93931; 93970; 93971; 94002; 94003; 94640; 94660; 94664; 94799; 96372; 96376; 97110; 97161; 97167; A4570; C1750; C8929; C9113; J0131; J0171; J0282; J0330; J0610; J1160; J1170; J1200; J1610; J1642; J1644; J1720; J1815; J1940; J2250; J2370; J2405; J2543; J2704; J3010; J3370; J3480; J3490; J7030; J7040; J7050; J7060; J7120; J7608; J7613; J7614; J7626; J7644; P9046; P9047; Q3014; Q9956

== ENCOUNTER 2022-11-07 10:21 | Outpatient (CLI) | payer BC, MEDICAID, SELFPAY ==
[2022-11-07 11:19] LABS: Albumin Level 3.5 g/dL (3.5-5.2); Anion Gap 14.8 (5-19); Blood Urea Nitrogen 12 mg/dL (6-20); Calcium 8.6 mg/dL (8.5-10.5); Carbon Dioxide 29 mmol/L (22-29); Chloride 103 mmol/L (98-107); Glomerular Filtration Rate 44.9 mL/min (90-130); Glucose 90 mg/dL (65-115); Phosphorus 3.1 mg/dL (2.5-4.5); Potassium 3.8 mmol/L (3.5-5.1); Sodium 143 mmol/L (136-145)
== END 2022-11-07 10:22 | disposition home or self-care (01) ==
PROVIDERS: PCP Nurse Practitioner Family; Visit Provider Internal Medicine Nephrology
DX: N17.9 Acute kidney failure, unspecified (principal)
CPT/HCPCS: 80069

== ENCOUNTER 2023-10-22 19:55 | Inpatient (IN) | payer MEDICAID, SELFPAY ==
[2023-10-22] VITALS (13 sets, daily range): BP systolic 40–126; BP diastolic 31–75; PULSE 84–92; RESP 14–22; TEMP 36.8–37.7; O2SAT 94–100
--- NOTE | 2023-10-22 20:10 | XRR_ITS ---
PROCEDURE INFORMATION: Exam: XR Chest Exam date and time: 10/22/2023 8:48 PM Age: 43 years old Clinical indication: Dyspnea; Prior surgery; Surgery date: 1-6 months; Surgery type: Pacer TECHNIQUE: Imaging protocol: Radiologic exam of the chest. Views: 1 view. COMPARISON: CR XR chest 1V portable [id number] 09/27/2022 3:24 AM FINDINGS: Tubes, catheters and devices: Right subclavian transvenous atrioventricular pacemaker is in expected position. Lungs: Clear, symmetrically inflated lungs. Pleural spaces: No pleural effusion. No pneumothorax. Heart/Mediastinum: Mild cardiac enlargement. Bones/joints: Age appropriate. XR/XR chest 1V portable [id number] IMPRESSION: 1. Successful insertion of right subclavian transvenous atrioventricular pacemaker. No evidence of pneumothorax. 2. Stable mild cardiac enlargement.
--- NOTE | 2023-10-22 20:12 | ED_ITS ---
HPI - SOB/Dyspnea 2 General: Chief Complaint: Shortness of Breath/Dyspnea Stated Complaint: low O2 Time Seen by Provider: 10/22/23 20:00 History of Present Illness: HPI Narrative: Patient presents to the ER with complaints of shortness of breath. Patient said this been going on several days. Patient usually wears 2 L per nasal cannula she tried all up to 6 L per nasal cannula with no big resolution. Patient did go to a different hospital and got chest x-ray which she said was negative and they said it was just her allergies. Patient says she is cold all the time but denies any fever. Patient says she has been around people that has been sick but they claimed they just had allergies as well. Patient does have a BiPAP at home and she supposed to use at night but has not been using the last several nights due to congestion. Review of Systems 2 General: Reports: 10 or more systems reviewed and unremarkable except in HPI and below PFSH ED 2 PFSH: Medical History (Updated 10/22/23 @ 23:38 by Taco Silva MD) Atrial fibrillation Hypothyroidism Hyperlipidemia Chronic kidney disease COPD (chronic obstructive pulmonary disease) Obstructive sleep apnea Hypoxia Hypertension screen Vitamin D deficiency Medication management Polycystic ovarian disease CHF (congestive heart failure) Essential hypertension Surgical History S/P D&C (status post dilation and curettage) S/P tubal ligation S/P cholecystectomy Social History Smoking and tobacco/nicotine status: former use of tobacco/nicotine Quit status (tobacco/nicotine): has quit using Second hand smoke exposure: No Alcohol intake: never Substance/Drug Use: never Physical Exam 2 Const: COMMON NORMALS: no acute distress, average body habitus, patient oriented x3, no limitations, healthy appearing, alert and well nourished HENMT: COMMON NORMALS: normocephalic, atraumatic, hearing grossly normal bilaterally, external ears normal, Normal external nose present, moist oral mucous membranes and oropharynx normal HEAD & SCALP: normocephalic and atraumatic NOSE: Normal external nose present EXTERNAL EAR: Yes external ears normal Neck/C-Spine: COMMON NORMALS: no JVD Chest: COMMONS NORMALS: normal inspection of the chest and normal palpation of entire chest wall Resp: COMMON NORMALS: normal respiratory effort, No retractions and No use of accessory muscles; negative for clear to auscultation bilaterally (Decreased breath sounds bilaterally occasional rhonchi occasional wheeze) AUSCULTATION: not clear to auscultation bilaterally (Decreased breath sounds bilaterally occasional rhonchi occasional wheeze) Cardio: COMMON NORMALS: no JVD, regular rate, regular rhythm, S1 normal heart sound present, S2 normal heart sound present, No gallops present (Cardio), No clicks present (Cardio), No murmurs present (Cardio) and No rub (Cardio) R ATE: regular rate RHYTHM: regular rhythm HEART SOUNDS: S1 normal heart sound present and S2 normal heart sound present GI: COMMON NORMALS: Normal to inspection, nondistended, normoactive bowel sounds present, Soft to palpation, non-tender, No hepatosplenomegaly present and no masses PALPATION: Yes Soft to palpation and Yes No hepatosplenomegaly present Neuro: COMMON NORMALS: patient oriented x3 SENSORIUM/ORIENTATION: Yes alert Course 2 Vital Signs: Vital signs: Vital Signs Temperature 97.0 F L 10/24/23 05:33 Pulse Rate 83 10/24/23 05:55 Respiratory Rate 18 10/24/23 05:33 Blood Pressure 122/65 10/24/23 05:33 Pulse Oximetry 100 10/24/23 05:33 Oxygen Delivery Me thod Nasal Cannula 10/23/23 20:23 Oxygen Flow Rate 2 10/23/23 20:23 Fraction of Inspir ed Oxygen 2 10/22/23 20:05 MDM - SOB/Dyspnea Medical Decision Making Patient presents short of breath and vaginal bleeding. ABG showed hemoglobin of 4, IV was obtained after some difficulty. This showed hemoglobin of 4 as well. Patient is currently on Eliquis and having active blood clots. Patient was typed and crossed patient be transfused 2 units. INR is pending. Dr. Silva was consulted who wants to get [employer]ISTANT on board. Dr. Daley was consulted who said give the patient 25 mg of Premarin IV he had both an pelvic ultrasound and a CT scan of the abdomen pelvis. Patient will be admitted to the ICU secondary to her very low hemoglobin until stable. Differential Diagnosis Unlikely acute exacerbation of chronic obstructive airways disease, congestive heart failure, community acquired pneumonia, asthma with exacerbation or pulmonary embolism Medical Records I reviewed the patient's medical records. Lab Data I reviewed the patient's lab results. 10/24/23 00:59 10/24/23 03:39 Labs/Radiology: Radiology Impressions Pelvis Ultrasound 10/22/23 22:23 IMPRESSION: 1. Enlarged uterus without discrete mass could reflect adenomyosis which can be associated with menorrhagia. 2. Endometrium is indistinct and thickened. Differential diagnosis includes late secretory phase physiologic endometrium as well as endometrial hyperplasia or less likely malignancy. 3. Left ovary is expanded by a 7.4 cm cyst, potentially a paraovarian cyst. Right ovary could not be demonstrated. Abdomen/Pelvis CT 10/23/23 09:30 IMPRESSION: 6 cm left ovarian cyst. Consider nonemergent characterization with pelvic ultrasound. There are no strandy inflammatory changes surrounding the left ovarian cyst Chest X-Ray 10/23/23 18:07 IMPRESSION: The new right internal jugular vein central venous catheter is in good position and there is no pneumothorax Laboratory Results WBC 11.93 10^3/uL (3.29-11.43) H 10/22/23 21:06 RBC 1.46 10^6/uL (3.85-5.65) L 10/22/23 21:06 Hgb 4.10 g/dL (11.27-16.99) L* 10/22/23 21:06 Hct 14.1 % (36-47) L* 10/22/23 21:06 MCV 96.6 fl (85-98) 10/22/23 21:06 MCH 28.1 pg (27-33) 10/22/23 21:06 MCHC 29.1 g/dL (30-55) L 10/22/23 21:06 RDW 18.6 % (12.1-15.1) H 10/22/23 21:06 Plt Count 248 10^3/cmm (157-399) 10/22/23 21:06 MPV 9.6 fL (7.4-10.4) 10/22/23 21:06 Neut % (Auto) 67.9 % 10/22/23 21:06 Lymph % (Auto) 22.9 % 10/22/23 21:06 Isabela % (Auto) 6.2 % 10/22/23 21:06 Eos % (Auto) 1.5 % 10/22/23 21:06 Baso % (Auto) 0.2 % 10/22/23 21:06 Neut # (Auto) 8.10 10^3/uL (1.8-7.7) H 10/22/23 21:06 Lymph # (Auto) 2.7 10^3/uL (0.8-4.8) 10/22/23 21:06 Isabela # (Auto) 0.7 10^3/uL (0.2-0.9) 10/22/23 21:06 Eos # (Auto) 0.2 10^3/uL (0.0-0.8) 10/22/23 21:06 Baso # (Auto) 0.0 10^3/uL (0.0-0.1) 10/22/23 21:06 Nucleated RBC % (auto) 3.0 % 10/22/23 21:06 Nucleated RBCs # 0.4 /100WBC 10/22/23 21:06 PT 17.20 SECONDS (12.1-14.9) H 10/22/23 21:06 INR 1.36 (0.8-1.2) H 10/22/23 21:06 Specimen Type Arterial 10/22/23 20:51 Sample Site Radial, right 10/22/23 20:51 ABG pH 7.53 (7.35-7.45) H 10/22/23 20:51 ABG pCO2 38.3 mmHg (35-45) 10/22/23 20:51 ABG pO2 129.0 mmHg (80.0-100.0) H 10/22/23 20:51 ABG HCO3 32.0 mmol/L (22-26) H 10/22/23 20:51 ABG O2 Saturation > 100.0 10/22/23 20:51 ABG Base Excess 8.4 mmol/L (-2.0-2.0) H 10/22/23 20:51 Haider Test Pos 10/22/23 20:51 A-a O2 Gradient Not Reportable 10/22/23 20:51 Hematocrit 12.8 % (37-47) L 10/22/23 20:51 Hgb O2 Saturation 98.1 % (95-100) 10/22/23 20:51 Carboxyhemoglobin 2.4 %THgb (0.4-20.1) 10/22/23 20:51 Methemoglobin 0.3 % (0.4-1.5) L 10/22/23 20:51 Total Hemoglobin 4.2 g/dL (12-16) L 10/22/23 20:51 Sodium 139.0 mmol/L (131-143) 10/22/23 20:51 Potassium 4.4 mmol/L (3.5-5.0) 10/22/23 20:51 Glucose 104.0 mg/dL (70-115) 10/22/23 20:51 Ionized Calcium 1.1 mmol/L (1.1-1.4) 10/22/23 20:51 O2 Delivery Device Nc 10/22/23 20:51 O2 Liters/Min 6.0 % 10/22/23 20:51 Supervisor Cytogenetic Laboratory ID [email or web address] 10/22/23 20:51 Sodium 136 mmol/L (136-145) 10/22/23 21:06 Potassium 4.5 mmol/L (3.5-5.1) 10/22/23 21:06 Chloride 98 mmol/L (98-107) 10/22/23 21:06 Carbon Dioxide 32 mmol/L (22-29) H 10/22/23 21:06 Anion Gap 10.5 (5-19) 10/22/23 21:06 BUN 16 mg/dL (6-20) 10/22/23 21:06 Creatinine 1.1 mg/dL (0.5-0.9) H 10/22/23 21:06 GFR Calculation 54.2 mL/min (90-130) L 10/22/23 21:06 Glucose 97 mg/dL (65-115) 10/22/23 21:06 Calculated Osmolality 283 mOsm/kg (285-295) L 10/22/23 21:06 Calcium 8.6 mg/dL (8.5-10.5) 10/22/23 21:06 Total Bilirubin 0.3 mg/dL (0.15-1.2) 10/22/23 21:06 AST 12 U/L (0-32) 10/22/23 21:06 ALT 9 U/L (0-33) 10/22/23 21:06 Alkaline Phosphatase 107 U/L (35-105) H 10/22/23 21:06 NT-Pro-B Natriuret Pep 394 pg/mL (0-125) H 10/22/23 21:06 Total Protein 6.3 g/dL (6.6-8.7) L 10/22/23 21:06 Albumin 3.4 g/dL (3.5-5.2) L 10/22/23 21:06 Globulin 2.9 g/dL (1.3-4.6) 10/22/23 21:06 TSH 2.66 uIU/mL (0.27-4.20) 10/22/23 21:06 HCG, Qual Negative (Negative) 10/22/23 21:06 Blood Type B Positive 10/22/23 21:10 Rho(D) Type Rh positive 10/22/23 21:10 Antibody Screen Negative 10/22/23 21:10 Crossmatch See Detail 10/22/23 21:10 All radiology interpretation(s) finalized by discharge Discharge Plan Discharge Patient Disposition: Admitted As Inpatient Admit Provider: Taco Silva Clinical Impression: Abnormal vaginal bleeding, Anemia requiring transfusions, COPD (chronic obstructive pulmonary disease) Condition: Stable Coding Level of Care Code ED Laboratory [facility]
[2023-10-22] MEDS: ipratropium-albuterol 3 mL Neb INHALATION (20:29)
[2023-10-22 21:01] LABS: ABG PCO2 38.3 mmHg (35-45); ABG PH Result 7.53 (7.35-7.45); Arterial Blood Gas Hematocrit 12.8 % (37-47); Base Excess ABG 8.4 mmol/L (-2.0-2.0); Blood Gas Allen Test Pos; Blood Gas Sample Site Radial, right; Blood Gas Sample Type Arterial; Carboxyhemoglobin 2.4 %THgb (0.4-20.1); HGB O2 Sat 98.1 % (95-100); Ionized Calcium Level - ABG 1.1 mmol/L (1.1-1.4); Methemoglobin 0.3 % (0.4-1.5); Oxygen Device NC; Oxygen Saturation ABG > 100.0; Potassium Level - ABG 4.4 mmol/L (3.5-5.0); Total Hemoglobin 4.2 g/dL (12-16)
--- NOTE | 2023-10-22 21:03 | PC.NURSE ---
Multiple IV attempts were attempted by multiple RNs without success using ultrasound. RT had trouble getting ABG. ICU was called in attempt to get additional help but are currently occupied. IV access is proving to be difficult to obtain.
[2023-10-22 21:11] LABS: Basophils % 0.2 %; Eosinophils # 0.2 10^3/uL (0.0-0.8); Eosinophils % 1.5 %; Lymphocytes # 2.7 10^3/uL (0.8-4.8); Lymphocytes % 22.9 %; Mean Corpuscular HGB Conc 29.1 g/dL (30-55); Mean Corpuscular Hemoglobin 28.1 pg (27-33); Mean Corpuscular Volume 96.6 fl (85-98); Mean Platelet Volume 9.6 fL (7.4-10.4); Monocytes # 0.7 10^3/uL (0.2-0.9); Monocytes % 6.2 %; Neutrophils % 67.9 %; Nucleated Red Blood Cells # 0.4 /100WBC; Platelet Count 248 10^3/cmm (157-399); Red Blood Count 1.46 10^6/uL (3.85-5.65); Red Cell Distribution Width 18.6 % (12.1-15.1); White Blood Count 11.93 10^3/uL (3.29-11.43)
[2023-10-22 21:21] LABS: Hematocrit 14.1 % (36-47)
[2023-10-22 21:30] LABS: Alanine Aminotransferase 9 U/L (0-33); Albumin Level 3.4 g/dL (3.5-5.2); Alkaline Phosphatase 107 U/L (35-105); Anion Gap 10.5 (5-19); Aspartate Amino Transferase 12 U/L (0-32); Blood Urea Nitrogen 16 mg/dL (6-20); Calcium 8.6 mg/dL (8.5-10.5); Carbon Dioxide 32 mmol/L (22-29); Chloride 98 mmol/L (98-107); Globulin 2.9 g/dL (1.3-4.6); Glomerular Filtration Rate 54.2 mL/min (90-130); Glucose 97 mg/dL (65-115); Osmolality Calculated 283 mOsm/kg (285-295); Potassium 4.5 mmol/L (3.5-5.1); Sodium 136 mmol/L (136-145); Total Bilirubin 0.3 mg/dL (0.15-1.2); Total Protein 6.3 g/dL (6.6-8.7)
[2023-10-22 21:39] LABS: NT Pro B Type Natriuretic Pept 394 pg/mL (0-125)
[2023-10-22 22:14] LABS: INR 1.36 (0.8-1.2)
--- NOTE | 2023-10-22 22:23 | USR_ITS ---
PROCEDURE INFORMATION: Exam: US Nonobstetric Pelvis; Complete Exam date and time: 10/22/2023 10:50 PM Age: 43 years old Clinical indication: Other: Patient presenting to er with shortness of breath. Her hemoglobin and hematocrit are dangerously low. She is being admitted to the icu and receiving blood transfusions. She [id number]-a1-l1, with non-stop vaginal bleeding since onset of last menses on 09/18/2023. Patient is morbidly obese 5ft 6 inches and 390 lbs. I tried to do transabdominal ultrasound, but could see nothing within the pelvis, overlying tissue being too thick to penetrate. This patient presented with shortness of breath. She is o2 dependent at 2l, and requires a bipap at night. ; Additional info: Heavy vaginal bleeding LABS AND CLINICAL REPORTS: Choriogonadotropin in serum (Serum HCG): 0 mIU/mL Last menstrual period start date: 09/18/2023 TECHNIQUE: Imaging protocol: Transabdominal pelvic nonobstetric ultrasound. Complete exam. Real time ultrasound with image documentation. COMPARISON: US renal BI* [id number] 09/09/2022 5:43 AM FINDINGS: Uterus: Uterus measures 9.9 x 6.4 x 6.4 cm. Uterine volume 210 cc. Indistinct thickened endometrium. No distinct myometrial mass. Right ovary/adnexa: Right ovary could not be visualized even with endovaginal imaging. Left ovary/adnexa: Left ovary measures 7.4 cm x 4.7 cm x 5.7 cm. Left ovarian volume is 104.5 mL. Left ovary is enlarged by a crescent shaped 7.4 cm cyst. Intraperitoneal space: Trace pelvic free fluid. Urinary bladder: Not demonstrated on endovaginal imaging. Transabdominal images were noncontributory. US/US pelvic complete* [id number] IMPRESSION: 1. Enlarged uterus without discrete mass could reflect adenomyosis which can be associated with menorrhagia. 2. Endometrium is indistinct and thickened. Differential diagnosis includes late secretory phase physiologic endometrium as well as endometrial hyperplasia or less likely malignancy. 3. Left ovary is expanded by a 7.4 cm cyst, potentially a paraovarian cyst. Right ovary could not be demonstrated.
[2023-10-22 23:03] LABS: HCG, Serum Qual Negative (Negative)
--- NOTE | 2023-10-22 23:10 | P.HP_ITS ---
Documented by User: BRODIE Daniels STDNT 10/23/23 00:13 Providers/Chief Complaint 2 Admitting Physician: Taco Silva MD Primary Care Provider: Jason Castro Chief Complaint: low O2 History of Present Illness Le Max is a 43 year old female, , presenting to the ED with vaginal bleeding, onset approximately 3 weeks prior, with significant clots. She reports saturation of more than 4 pads per hour. She also reports having shortness of breath onset approximately 2 weeks prior with a mild nonproductive cough. She reports this is a continuous episode of her current menstrual cycle. She has a history of irregular menstrual cycles, which could be months apart. However, she does report that her menstrual cycle usually last 7 days on average, this was lasted 3 weeks now almost 4 weeks. She reports that her menstrual cycles have gotten significantly worse, after starting Eliquis approximately 1 year prior. She had reported to the ED in [place], and she was given a prescription of medroxyprogesterone, she took the last of which today, but her bleeding has not improved. Her last dose of Eliquis was today, at 1600. She is currently requiring 4 L of oxygen in the ED, she is on oxygen at home baseline 2 L. She denies any headache, changes in vision, blurry vision, hemoptysis, hematemesis, chest pain or palpitation, nausea, vomiting, diarrhea, blood in the stool, or extremity concerns. Her medical history is significant for chronic obesity, hypertension, hyperlipidemia, hypothyroidism, A-fib, GERD, previous NH, hemorrhoid, hospitalization for pneumonia, [facility]. Her surgical history significant for a tubal ligation in 2011, cholecystectomy, ovarian cyst removal, pacemaker placement. ED medications include DuoNeb and conjugated estrogens 25 mg. Review of Systems 2 General: Reports: 10 or more systems reviewed and unremarkable except in HPI and below Narrative: Negative except as noted above in the HPI. Const: Reports: chills and fatigue Resp: Reports: dyspnea and non-productive cough GI: Reports: abdominal pain (Bilateral lower quadrants) : Reports: vaginal bleeding, dysmenorrhea, irregular period and change in menstrual flow Medications/Allergies Home Medications Medication Instructions Recorded Confirmed Last Taken Type No Known Home Medications 09/07/22 09/07/22 Unknown History Allergies Allergy/AdvReac Type Severity Reaction Status Date / Time No Known Allergies Allergy Verified 10/22/23 20:09 Additional Medication Information Home medications include: ? Eliquis ? Lasix ? Statin?specific statin unknown, patient could not recall. ? Levothyroxine ? Sotalol ? Pantoprazole ? Oxygen Dosage unknown at time of admission, patient could not recall, will follow-up. ? Medroxyprogesterone?completed last dose today, 10/22/2023 PFSH Acute 2 PFSH: Medical History (Updated 10/22/23 @ 23:38 by Taco Silva MD) Atrial fibrillation Hypothyroidism Hyperlipidemia Chronic kidney disease COPD (chronic obstructive pulmonary disease) Obstructive sleep apnea Hypoxia Hypertension screen Vitamin D deficiency Medication management Polycystic ovarian disease CHF (congestive heart failure) Essential hypertension Surgical History S/P D&C (status post dilation and curettage) S/P tubal ligation S/P cholecystectomy Social History Smoking and tobacco/nicotine status: former use of tobacco/nicotine Quit status (tobacco/nicotine): has quit using Second hand smoke exposure: No Alcohol intake: never Substance/Drug Use: never Female Reproductive History: Date of last menstrual period: 09/18/23 control method: none : 3 Para: 1 Spontaneous abortions: Yes (2) Other female reproductive history: Reports irregular menstruations. Reports menstrual cycle usually last 7 days. Vitals/I&O/Wt Last Vital Signs Temp 99.1 F 10/22/23 20:05 Pulse 84 10/22/23 22:44 Resp 17 10/22/23 22:44 BP 126/58 10/22/23 21:34 Pulse Ox 96 10/22/23 22:44 O2 Del Method Nasal Cannula 10/22/23 20:29 O2 Flow Rate 3 10/22/23 20:29 FiO2 2 10/22/23 20:05 Physical Exam 2 Narrative: General: Comfortable appearing female, resting in ER gurney, 4 L nasal cannula, alert and oriented, speech appropriate, mildly tachypneic, intermittent nonproductive coughs. HEENT: Head atraumatic, normocephalic to visual inspection, PERRL, neck supple no thyromegaly noted. CV: Normal rate and rhythm, S1-S2 noted, no murmurs rubs or gallops noted. Pulm: Lungs clear to auscultation bilaterally. GI: Obese abdomen, soft, tender in the bilateral lower quadrants. : Deferred?bleeding and clots noted in bedside commode. Extremities: Capillary refill <2 seconds, mild edema noted bilateral lower extremities. Data 10/22/23 21:06 10/22/23 21:06 Other Labs: PT: 17.2 INR: 1.36 ABG: pH?7.53, pCO2?38.3, pO2?129, HCO3?32.0, base excess 8.4. Serum osmolality: 283 AST/ALT/alk phos: 12, 9, 107 respectively. T. bili: 0.3 BNP: 394 Total protein: 6.3 Albumin: 3.4 TSH: Pending hCG: Negative Chest x-ray: Personally reviewed shows pacemaker placement with leads leading to atrium and ventricle, lungs look clear bilaterally, no consolidation or focal changes noted. A&P Assessment and plan (1) Acute blood loss anemia: Patient presents to the ED with prolonged vaginal bleeding after starting her menstrual period, onset approximately 3 weeks prior. Hemoglobin in the emergency department was 4.1. Bedside commode had visible blood and large clots. She has been having some shortness of breath, most likely associated with her anemia, however she is on oxygen 2 L, baseline at home. Patient denies having any hemoptysis, hematemesis, hematochezia. ? Obtain blood type and screen. ? Transfuse 2 units of blood. ? Repeat CBC?morning labs. ? Discontinue Eliquis. ? Oxygen therapy, titrate as needed to maintain oxygen above 94%. (2) Vaginal bleeding: Patient is a 2 1 female who presents to the ED with prolonged vaginal bleeding after starting her menstrual period, onset approximately 3 weeks prior. She has a history of A-fib for which she takes Eliquis, started approximately 1 year prior, she reports that her menstrual periods have gotten heavier since the initiation. She reports having irregular menstrual periods, but her menstrual periods last about 7 days. Her last menstrual period was a few months prior, she cannot remember exactly when. Vaginal bleeding may be related to endometriosis or endometrial hyperplasia, related to chronic increased estrogen exposure due to her obesity. Possibility of ectopic or miscarriage was entertained, however, beta- hCG was negative, she has also had a bilateral tubal ligation in 2011, her has had a vasectomy. ? Consult HEAD SCREEN WORKER. ? Uterine ultrasound ordered by HEAD SCREEN WORKER. ? Conjugated estrogens, administered in the ED. ? Will continue to monitor, will follow HEAD SCREEN WORKER recommendations. ? Discontinue Eliquis. ? Repeat CBC?morning labs. (3) Atrial fibrillation: Patient has a history of atrial fibrillation, she has got a implanted pacemaker in place. Eliquis for anticoagulation. ? Discontinue Eliquis?acute bleeding. ? Vital signs are within normal limits, heart rate has not gone above 100. (4) CHF (congestive heart failure): Patient has a history of CHF. She takes furosemide at home. BNP was 374. ? Will continue to monitor. ? Patient is on Lasix at home, patient was unable to recall her home dose, will reconcile medication in the morning. Qualifiers: Heart failure chronicity: acute on chronic Heart failure type: d iastolic Qualified Code(s): I50.33 - Acute on chronic diastolic (congestive) heart failure Coding Level of Care Code 93633 Diagnoses Acute blood loss anemia D62 Vaginal bleeding N93.9 Atrial fibrillation I48.91 Acute on chronic diastolic congestive heart failure I50.33 Heart failure chronicity: acute on chronic Heart failure type: diastolic Time Spent (min) 56 Documented by User: Taco Silva MD 10/23/23 00:16 Providers/Chief Complaint 2 Chief Complaint: low O2 Medications/Allergies Home Medications Medication Instructions Recorded Confirmed Last Taken Type No Known Home Medications 09/07/22 09/07/22 Unknown History Allergies Allergy/AdvReac Type Severity Reaction Status Date / Time No Known Allergies Allergy Verified 10/22/23 20:09 PFSH Acute 2 PFSH: Medical History (Updated 10/22/23 @ 23:38 by Taco Silva MD) Atrial fibrillation Hypothyroidism Hyperlipidemia Chronic kidney disease COPD (chronic obstructive pulmonary disease) Obstructive sleep apnea Hypoxia Hypertension screen Vitamin D deficiency Medication management Polycystic ovarian disease CHF (congestive heart failure) Essential hypertension Surgical History S/P D&C (status post dilation and curettage) S/P tubal ligation S/P cholecystectomy Social History Smoking and tobacco/nicotine status: former use of tobacco/nicotine Quit status (tobacco/nicotine): has quit using Second hand smoke exposure: No Alcohol intake: never Substance/Drug Use: never Data 10/22/23 21:06 10/22/23 21:06 Other Labs: PT: 17.2 INR: 1.36 ABG: pH?7.53, pCO2?38.3, pO2?129, HCO3?32.0, base excess 8.4. Serum osmolality: 283 AST/ALT/alk phos: 12, 9, 107 respectively. T. bili: 0.3 BNP: 394 Total protein: 6.3 Albumin: 3.4 TSH: Pending hCG: Negative Chest x-ray: Personally reviewed shows pacemaker placement with leads leading to atrium and ventricle, lungs look clear bilaterally, no consolidation or focal changes noted. EKG is ordered A&P Assessment and plan (1) Acute blood loss anemia: Patient presents to the ED with prolonged vaginal bleeding after starting her menstrual period, onset approximately 3 weeks prior. Hemoglobin in the emergency department was 4.1. Bedside commode had visible blood and large clots. She has been having some shortness of breath, most likely associated with her anemia, however she is on oxygen 2 L, baseline at home. Patient denies having any hemoptysis, hematemesis, hematochezia. ? Obtain blood type and screen. ? Transfuse 2 units of blood. ? Repeat CBC?morning labs. This will be about the time when the transfusion is complete. ? Discontinue Eliquis. ? Oxygen therapy, titrate as needed to maintain oxygen above 94%. Transfuse further if symptomatic, especially if hemoglobin is less than 7. AUTOMATIC SPOOLER OPERATOR consultation will be obtained, as well as further imaging of her uterus and ovaries with CT scan and ultrasound. AUTOMATIC SPOOLER OPERATOR has directed estrogen be given, 25 mg IV x 1 Appreciate AUTOMATIC SPOOLER OPERATOR consultation (2) Vaginal bleeding: Patient is a 2 1 female who presents to the ED with prolonged vaginal bleeding after starting her menstrual period, onset approximately 3 weeks prior. She has a history of A-fib for which she takes Eliquis, started approximately 1 year prior, she reports that her menstrual periods have gotten heavier since the initiation. She reports having irregular menstrual periods, but her menstrual periods last about 7 days. Her last menstrual period was a few months prior, she cannot remember exactly when. Vaginal bleeding may be related to endometriosis or endometrial hyperplasia, related to chronic increased estrogen exposure due to her obesity. Possibility of ectopic or miscarriage was entertained, however, beta- hCG was negative, she has also had a bilateral tubal ligation in 2011, her has had a vasectomy. ? Consult HEAD SCREEN WORKER. ? Uterine ultrasound ordered by HEAD SCREEN WORKER. CT ordered as well. ? Conjugated estrogens, administered in the ED. ? Will continue to monitor, will follow HEAD SCREEN WORKER recommendations. ? Discontinue Eliquis. ? Repeat CBC?morning labs. (3) Atrial fibrillation: Patient has a history of atrial fibrillation, she has got a implanted pacemaker in place. Eliquis for anticoagulation. ? Discontinue Eliquis?acute bleeding. ? Vital signs are within normal limits, heart rate has not gone above 100. Continue sotalol. Dose confirmation with pharmacy techs, when meds are reconciled and restart this medication. (4) CHF (congestive heart failure): Patient has a history of CHF. She takes furosemide at home. BNP was 374. ? Will continue to monitor. ? Patient is on Lasix at home, patient was unable to recall her home dose, will reconcile medication in the morning. Likely will need to restart considering volume of blood that may need to be transfused. Qualifiers: Heart failure chronicity: acute on chronic Heart failure type: d iastolic Qualified Code(s): I50.33 - Acute on chronic diastolic (congestive) heart failure Plan COPD. Budesonide twice daily. DuoNeb every 6 hours as needed Obstructive sleep apnea. BiPAP in the hospital was sleeping Multiple other medical problems as outlined in past medical history Full code SCDs for DVT prophylaxis. Hold anticoagulation secondary to active bleeding. Attestations 2 Medical Necessity Statement*: Will need greater than 2 midnight stay for evaluation and treatment of acute blood loss anemia, with vaginal bleeding. Anemia severe enough for transfusion will be necessary, likely multiple units. Diagnoses Acute blood loss anemia D62 Vaginal bleeding N93.9 Atrial fibrillation I48.91 Acute on chronic diastolic congestive heart failure I50.33 Heart failure chronicity: acute on chronic Heart failure type: diastolic Time Spent (min) 56
--- NOTE | 2023-10-22 23:36 | ECG_ITS ---
[facility] Test Date: 2023-10-22 Pat Name: Le Max Department: Room: [facility] Gender: Female Telesales Professional: : 1980 Requested By: Taco Gracia Order Number: [id number] Camila MD: Jaydon Fernandez M.D. Measurements Intervals [place] Rate: 86 P: 45 [place]: 190 QRS: 29 QRSD: 94 T: 74 QT: 385 QTc: 462 Interpretive Statements SINUS RHYTHM NONSPECIFIC T-WAVE ABNORMALITY No previous ECG available for comparison Electronically Signed On 10-23-2023 17:28:47 CDT by Jaydon Fernandez M.D. [id number]
[2023-10-22 23:38] LABS: Thyroid Stimulating Hormone 2.66 uIU/mL (0.27-4.20)
[2023-10-23] VITALS (121 sets, daily range): BP systolic 40–136; BP diastolic 31–89; PULSE 71–92; RESP 4–29; TEMP 36.1–37.7; O2SAT 76–100; BMI 58.6
[2023-10-23 01:22] LABS: Bilirubin Urine Neg (Negative); Blood Urine 2+ (Negative); Glucose Urine UA Norm (Normal); Ketones Urine Negative (Negative); Leukocyte Esterase Urine Negative (Negative); Nitrate Urine Negative (Negative); Protein Urine Neg (Negative); Specific Gravity, Urine 1.015 (1.005-1.030); Urine Appearance Clear (CLEAR); Urine Color Yellow (Yellow); Urobilinogen Urine 1 mg/dL (Negative); pH Urine 5 (5-7)
[2023-10-23 01:23] LABS: Add Urine Culture? No; Mucus Urine 1+ /hpf; RBC Urine 0-4 /hpf (0-2); Squamous Epithelial Cell Urine 0-4 /hpf (0-5); WBC Urine 0-4 /hpf (0-5)
[2023-10-23] MEDS: estrogens Conjugated 25 mg/5 mL SDV IVP (03:03)
--- NOTE | 2023-10-23 03:05 | PC.NURSE ---
Following first unit of PRBC infusion pt had coarse lung sounds and moist cough. Denied any shortness of breath, O2 sat 100% on 2.[address] Smith, new order received for Lasix 40 mg IVP x1.
[2023-10-23] MEDS: FUROsemide 10 mg/mL SDV 4mL 40 MG IVP ×2 (03:25→20:38)
--- NOTE | 2023-10-23 03:25 | P.CONIM_ITS ---
Providers/Reason for Consult 2 Consulting Physican/Specialty*: Cali Daley MD; School Bus Driver/Custodian Reason for Consult*: vaginal bleeding severe anemia Attending Physician: Vivian Chou MD Primary Care Provider: Jason Castro SCIENCE INTERPRETER Consult HPI History of Present Illness September Mansoor is a 43 year old female h/o BTL periods always irregular, usually once every 3-4 months, lasting 7-10 days, usually heavy when they occur started bleeding three weeks ago has been continuous with large clots and saturating multiple pads was prescribed medroxyprogesterone PO one week ago but has not helped presented to ED with SOB found to have Hgb of 4.1 Of note, patient has been on Eliquis for one year. Present Details : 3 Date of Last Menstrual Period: 10/23/23 Medications/Allergies Home Medications Medication Instructions Recorded Confirmed Last Taken Type No Known Home Medications 09/07/22 09/07/22 Unknown History Allergies Allergy/AdvReac Type Severity Reaction Status Date / Time No Known Allergies Allergy Verified 10/22/23 20:09 Current Medications Generic Name Dose Route Start Last Admin Trade Name Freq PRN Reason Stop Dose Admin Albuterol/Ipratropium 3 ml 10/23/23 00:09 10/23/23 08:10 Ipratropium-Albuterol 3 Ml Neb INHALATION 3 ml Q6H PRN Administration SHORTNESS OF BREATH Budesonide 0.5 mg 10/23/23 08:00 10/23/23 08:07 Budesonide 0.5 Mg/2 Ml Neb INHALATION 0.5 mg BID.RESPIRATORY STERLING Administration Pantoprazole Sodium 40 mg 10/23/23 09:00 10/23/23 07:[address] 40 Mg Tablet PO 40 mg DAILY STERLING Administration PFSH SCIENCE INTERPRETER 2 PFSH: Medical History (Updated 10/22/23 @ 23:38 by Taco Silva MD) Atrial fibrillation Hypothyroidism Hyperlipidemia Chronic kidney disease COPD (chronic obstructive pulmonary disease) Obstructive sleep apnea Hypoxia Hypertension screen Vitamin D deficiency Medication management Polycystic ovarian disease CHF (congestive heart failure) Essential hypertension Surgical History S/P D&C (status post dilation and curettage) S/P tubal ligation S/P cholecystectomy Social History Smoking and tobacco/nicotine status: former use of tobacco/nicotine Quit status (tobacco/nicotine): has quit using Second hand smoke exposure: No Alcohol intake: never Substance/Drug Use: never Vitals/I&O/Wt Last Vital Signs Temp 98.0 F 10/23/23 06:20 Pulse 80 10/23/23 08:13 Resp 16 10/23/23 08:10 BP 114/53 10/23/23 06:30 Pulse Ox 94 10/23/23 08:10 O2 Del Method Nasal Cannula 10/23/23 08:10 O2 Flow Rate 2 10/23/23 08:10 FiO2 2 10/22/23 20:05 10/22/23 10/23/23 10/23/23 22:59 06:59 14:59 Intake Total 350 / 350 350 / 350 Output Total 1190 / 1190 Balance -840 / -840 350 / 350 Weight last 48 hrs Weight 364 lb Weight 364 lb Weight 363 lb 11.2 oz Physical Exam 2 Narrative: Weight 364 lbs On O2 by nasal cannula Abd: soft, nontender Pelvic: unable Data 10/23/23 03:39 10/23/23 03:39 A&P Assessment and plan (1) Abnormal vaginal bleeding: Excessive uterine bleeding recommend: Premarin 25 mg IV x one dose transvaginal pelvic sono and/or CT of abdomen / pelvis When patient is medically stable, will discuss with patient possible hysteroscopy and endometrial sampling and potential treatment options to prevent heavy uterine bleeding will continue to follow Consult Attestations 2 Medical Necessity Statement: patient with heavy uterine bleeding and severe anemia. Coding Level of Care Code Acute Code for Chg Fwd Diagnoses Abnormal vaginal bleeding N93.9 Time Spent (min) 45
[2023-10-23 04:08] LABS: Basophils % 0.3 %; Eosinophils # 0.1 10^3/uL (0.0-0.8); Eosinophils % 1.2 %; Lymphocytes # 2.7 10^3/uL (0.8-4.8); Mean Corpuscular HGB Conc 31.5 g/dL (30-55); Mean Corpuscular Hemoglobin 30.3 pg (27-33); Mean Corpuscular Volume 96.1 fl (85-98); Mean Platelet Volume 9.9 fL (7.4-10.4); Monocytes # 0.6 10^3/uL (0.2-0.9); Monocytes % 5.8 %; Neutrophils # 6.08 10^3/uL (1.8-7.7); Neutrophils % 63.5 %; Nucleated Red Blood Cells # 0.2 /100WBC; Platelet Count 179 10^3/cmm (157-399); Red Blood Count 1.55 10^6/uL (3.85-5.65); Red Cell Distribution Width 20.3 % (12.1-15.1); White Blood Count 9.55 10^3/uL (3.29-11.43)
[2023-10-23 04:12] LABS: Hematocrit 14.9 % (36-47)
[2023-10-23 04:28] LABS: Alanine Aminotransferase 7 U/L (0-33); Alkaline Phosphatase 94 U/L (35-105); Anion Gap 10.4 (5-19); Aspartate Amino Transferase 11 U/L (0-32); Blood Urea Nitrogen 17 mg/dL (6-20); Calcium 8.2 mg/dL (8.5-10.5); Carbon Dioxide 31 mmol/L (22-29); Chloride 100 mmol/L (98-107); Creatinine Clr Calc Pharmacy 105.7367; Globulin 2.4 g/dL (1.3-4.6); Glomerular Filtration Rate 54.2 mL/min (90-130); Glucose 91 mg/dL (65-115); Magnesium 2.1 mg/dL (1.7-2.3); Osmolality Calculated 285 mOsm/kg (285-295); Potassium 4.4 mmol/L (3.5-5.1); Sodium 137 mmol/L (136-145); Total Bilirubin 0.4 mg/dL (0.15-1.2); Total Protein 5.4 g/dL (6.6-8.7)
[2023-10-23] MEDS: pantoprazole DR 40 mg Tablet PO (07:46)
[2023-10-23] MEDS: budesonide 0.5 mg/2 mL Neb INHALATION ×2 (08:07→20:20)
[2023-10-23] MEDS: ipratropium-albuterol 3 mL Neb INHALATION ×2 (08:10→20:22)
--- NOTE | 2023-10-23 09:30 | CTR_ITS ---
PROCEDURE INFORMATION: Exam: CT Abdomen And Pelvis With Contrast Exam date and time: 10/23/2023 12:27 PM Age: 43 years old Clinical indication: Other: See below; Prior surgery; Surgery date: 6+ months; Surgery type: Dnc 1 year ago, tubal, gb; Additional info: Heavy vaginal bleeding, not done 10/21, date changed to 10/22 TECHNIQUE: Imaging protocol: Computed tomography of the abdomen and pelvis with contrast. Radiation optimization: All CT scans at this facility use at least one of these dose optimization techniques: automated exposure control; mA and/or kV adjustment per patient size (includes targeted exams where dose is matched to clinical indication); or iterative reconstruction. Contrast material: OMNI 350; Contrast volume: 100 ml; Contrast route: INTRAVENOUS (IV); COMPARISON: CR XR KUB portable [id number] 20/09/2022 07:59 RADIATION DOSE METRICS: Total DLP (mGy-cm): 2072 FINDINGS: Lungs: Trace left basilar atelectasis. Liver: Normal. No mass. Gallbladder and bile ducts: Cholecystectomy. Pancreas: Normal. No ductal dilation. Spleen: Normal. No splenomegaly. Adrenal glands: Normal. No mass. Kidneys and ureters: Normal. No hydronephrosis. Stomach and bowel: Unremarkable. No obstruction. No mucosal thickening. Appendix: No evidence of appendicitis. Intraperitoneal space: Unremarkable. No free air. No significant fluid collection. Vasculature: Unremarkable. No abdominal aortic aneurysm. Lymph nodes: Unremarkable. No enlarged lymph nodes. Urinary bladder: The bladder is decompressed with a Cha catheter. Reproductive: 6 cm left ovarian cyst. Consider further evaluation with pelvic ultrasound. There are no strandy inflammatory changes surrounding the left ovarian cyst. Bones/joints: Unremarkable. No acute fracture. Soft tissues: Unremarkable. CT/CT abdomen pelvis w con* [id number] IMPRESSION: 6 cm left ovarian cyst. Consider nonemergent characterization with pelvic ultrasound. There are no strandy inflammatory changes surrounding the left ovarian cyst
[2023-10-23 10:07] LABS: Basophils % 0.3 %; Eosinophils # 0.1 10^3/uL (0.0-0.8); Lymphocytes # 2.3 10^3/uL (0.8-4.8); Lymphocytes % 23.6 %; Mean Corpuscular HGB Conc 31.4 g/dL (30-55); Mean Corpuscular Hemoglobin 29.3 pg (27-33); Mean Corpuscular Volume 93.4 fl (85-98); Monocytes # 0.7 10^3/uL (0.2-0.9); Monocytes % 7.2 %; Neutrophils # 6.51 10^3/uL (1.8-7.7); Nucleated Red Blood Cells # 0.2 /100WBC; Nucleated Red Blood Cells % 2.1 %; Platelet Count 184 10^3/cmm (157-399); Red Blood Count 1.81 10^6/uL (3.85-5.65); Red Cell Distribution Width 18.1 % (12.1-15.1); White Blood Count 9.73 10^3/uL (3.29-11.43)
[2023-10-23 10:24] LABS: Hematocrit 16.9 % (36-47)
--- NOTE | 2023-10-23 12:27 | P.PN_ITS ---
Subjective 2 Subjective: pt s/p 2 units prbc repeat hb 5.7 still having heavy vag bleeding. Vitals/I&O/Wt Last Vital Signs Temp 98.0 F 10/23/23 06:20 Pulse 78 10/23/23 10:00 Resp 21 H 10/23/23 10:00 BP 105/59 10/23/23 10:00 Pulse Ox 100 10/23/23 10:00 O2 Del Method Nasal Cannula 10/23/23 08:10 O2 Flow Rate 2 10/23/23 08:10 FiO2 2 10/22/23 20:05 10/22/23 10/23/23 10/23/23 22:59 06:59 14:59 Intake Total 350 / 350 590 / 590 Output Total 1190 / 1190 Balance -840 / -840 590 / 590 Weight last 48 hrs Weight 165.108 kg Weight 165.108 kg Weight 164.972 kg Physical Exam 2 Narrative: General: Comfortable appearing female HEENT: Head atraumatic, normocephalic to visual inspection CV: Normal rate and rhythm, S1-S2 noted, Pulm: Lungs clear to auscultation bilaterally. GI: Obese abdomen, soft, tender in the bilateral lower quadrants. : Deferred?bleeding Extremities: Capillary refill <2 seconds, mild edema noted bilateral lower extremities. Data 10/23/23 10:00 10/23/23 03:39 A&P Assessment and plan (1) Acute blood loss anemia: Patient presents to the ED with prolonged vaginal bleeding after starting her menstrual period, onset approximately 3 weeks prior. Hemoglobin in the emergency department was 4.1. Bedside commode had visible blood and large clots. She has been having some shortness of breath, most likely associated with her anemia, however she is on oxygen 2 L, baseline at home. Patient denies having any hemoptysis, hematemesis, hematochezia. ? Obtain blood type and screen. ? Transfuse 2 units of blood. ? Repeat CBC?morning labs. This will be about the time when the transfusion is complete. ? Discontinue Eliquis. ? Oxygen therapy, titrate as needed to maintain oxygen above 94%. Transfuse further if symptomatic, especially if hemoglobin is less than 7. ANTHROPOLOGY AND ARCHEOLOGY INSTRUCTOR consultation will be obtained, as well as further imaging of her uterus and ovaries with CT scan and ultrasound. ANTHROPOLOGY AND ARCHEOLOGY INSTRUCTOR has directed estrogen be given, 25 mg IV x 1 Appreciate ANTHROPOLOGY AND ARCHEOLOGY INSTRUCTOR consultation (2) Vaginal bleeding: Patient is a 2 1 female who presents to the ED with prolonged vaginal bleeding after starting her menstrual period, onset approximately 3 weeks prior. She has a history of A-fib for which she takes Eliquis, started approximately 1 year prior, she reports that her menstrual periods have gotten heavier since the initiation. She reports having irregular menstrual periods, but her menstrual periods last about 7 days. Her last menstrual period was a few months prior, she cannot remember exactly when. Vaginal bleeding may be related to endometriosis or endometrial hyperplasia, related to chronic increased estrogen exposure due to her obesity. Possibility of ectopic or miscarriage was entertained, however, beta- hCG was negative, she has also had a bilateral tubal ligation in 2011, her has had a vasectomy. ? Consult MANAGER HRIS. ? Uterine ultrasound ordered by MANAGER HRIS. CT ordered as well. ? Conjugated estrogens, administered in the ED. ? Will continue to monitor, will follow MANAGER HRIS recommendations. ? Discontinue Eliquis. ? Repeat CBC?morning labs. (3) Atrial fibrillation: Patient has a history of atrial fibrillation, she has got a implanted pacemaker in place. Eliquis for anticoagulation. ? Discontinue Eliquis?acute bleeding. ? Vital signs are within normal limits, heart rate has not gone above 100. Continue sotalol. Dose confirmation with pharmacy techs, when meds are reconciled and restart this medication. (4) CHF (congestive heart failure): Patient has a history of CHF. She takes furosemide at home. BNP was 374. ? Will continue to monitor. ? Patient is on Lasix at home, patient was unable to recall her home dose, will reconcile medication in the morning. Likely will need to restart considering volume of blood that may need to be transfused. Qualifiers: Heart failure type: diastolic Heart failure chronicity: acute on chronic Qualified Code(s): I50.33 - Acute on chronic diastolic (congestive) heart failure Plan COPD. Budesonide twice daily. DuoNeb every 6 hours as needed Obstructive sleep apnea. BiPAP in the hospital was sleeping Multiple other medical problems as outlined in past medical history Full code SCDs for DVT prophylaxis. Hold anticoagulation secondary to active bleeding. Todays plan 10/22 - order 2 more units prbc, 1 ffp, 1 platelet - pt s/p 2 units - check cbc q8h - pt may require hysterectomy - continue to hold eliquis - obgyn consulted, await recommendations - continue to monitor in icu setting. Attestations 2 Medical Necessity Statement*: Will need greater than 2 midnight stay for evaluation and treatment of acute blood loss anemia, with vaginal bleeding. Anemia severe enough for transfusion will be necessary, likely multiple units. Diagnoses Acute blood loss anemia D62 Vaginal bleeding N93.9 Atrial fibrillation I48.91 Acute on chronic diastolic congestive heart failure I50.33 Heart failure type: diastolic Heart failure chronicity: acute on chronic
[2023-10-23] MEDS: iohexol 350 mg/mL 500 mL Btl (per mL) IV (12:33)
[2023-10-23] MEDS: sodium chloride 0.9% (100 ml) 100 ML 25 ML (13:55)
--- NOTE | 2023-10-23 16:22 | PICC.NOTE ---
Referred for PICC placement due to poor access. Both right and left arms assessed with no viable veins noted. Vessels noted to be 2 mm or less in diameter and very deep, possibly outside the length of needle used for placement. Dr. Chou notified.
--- NOTE | 2023-10-23 18:07 | XRR_ITS ---
PROCEDURE INFORMATION: Exam: XR Chest Exam date and time: 10/23/2023 6:14 PM Age: 43 years old Clinical indication: Device placement; Other: Central line placement; Prior surgery; Surgery date: 6+ months; Surgery type: Pacer TECHNIQUE: Imaging protocol: Radiologic exam of the chest. Views: 1 view. COMPARISON: CR (CHEST, ) 22/10/2023 20:48 FINDINGS: Tubes, catheters and devices: There is a new right internal jugular vein central venous catheter with the distal tip projecting at the cavoatrial junction. Right chest pacemaker in stable position. Lungs: Unremarkable. No consolidation. Pleural spaces: Unremarkable. No pleural effusion. No pneumothorax. Heart/Mediastinum: Borderline cardiomegaly, stable Bones/joints: Unremarkable. XR/XR chest 1V portable [id number] IMPRESSION: The new right internal jugular vein central venous catheter is in good position and there is no pneumothorax
--- NOTE | 2023-10-23 18:41 | PM.CCN ---
Critical Care Event Note Contacted by attending physician Dr. Chou requesting central line placement unable to maintain peripheral IV access. Patient severely anemic with ongoing vaginal bleeding. Critical Care Time Code activated: No Critical Care Time (min): 0 Procedures Central Line Placement^ Right IJ: Time out performed: Yes Patient placed on monitor/pulse ox: Yes MD prep: mask, gown and gloves Central line prep: Chlorhexidine scrub Local anesthesia used: with epi Amount of anesthesia used (ml): 8 Ultrasound used for placement: Yes Central line lumen inserted: triple Post procedure: sutured in place, good blood return, all ports aspirated, flushed, capped and sterile dressing applied Post procedure x-ray: tip of catheter in good position and no pneumothorax seen Patient tolerated procedure: well Complications: none Additional comments: Due to body habitus extreme difficulty accessing vessel. Initial attempt was able to access the vessel but the wire slipped out when we did not hold firm pressure on the hub. The needle was hubbed to the skin to access the internal jugular. The wire caught on the bevel of the needle and the entire unit had to be removed. Another wire was obtained and we were able to gain access and place a central line out further difficulty. Chest x-ray confirms placement of central line. Coding Level of Care Code Acute Code for Chg Fwd
[2023-10-23 19:28] LABS: Basophils % 0.2 %; Eosinophils # 0.1 10^3/uL (0.0-0.8); Eosinophils % 1.6 %; Lymphocytes % 22.6 %; Mean Corpuscular HGB Conc 33.5 g/dL (30-55); Mean Corpuscular Hemoglobin 31.5 pg (27-33); Mean Corpuscular Volume 93.8 fl (85-98); Monocytes # 0.7 10^3/uL (0.2-0.9); Monocytes % 7.6 %; Neutrophils # 6.02 10^3/uL (1.8-7.7); Neutrophils % 67.2 %; Nucleated Red Blood Cells # 0.2 /100WBC; Platelet Count 194 10^3/cmm (157-399); Red Blood Count 1.78 10^6/uL (3.85-5.65); White Blood Count 8.95 10^3/uL (3.29-11.43)
[2023-10-23 19:32] LABS: Hematocrit 16.7 % (36-47)
--- NOTE | 2023-10-23 19:47 | PC.NURSE ---
Report received from [facility] that IV had infiltrated during blood admin on previous shift. Was unable to obtain access before appropriate time to finish administration of that unit. Total transfused 129 ml, wasted 221 ml.
[2023-10-23] MEDS: acetaminophen 325 mg Tablet 650 MG PO (23:38)
[2023-10-24] VITALS (69 sets, daily range): BP systolic 86–156; BP diastolic 44–96; PULSE 73–98; RESP 13–24; TEMP 36.1–37.5; O2SAT 90–100
[2023-10-24] MEDS: estrogens Conjugated 25 mg/5 mL SDV IVP ×4 (00:27→23:19)
[2023-10-24] MEDS: water for injection-sterile SDV 10 mL INJECTION ×2 (00:30→13:07)
[2023-10-24 01:18] LABS: Basophils % 0.4 %; Eosinophils # 0.1 10^3/uL (0.0-0.8); Eosinophils % 1.3 %; Lymphocytes # 2.6 10^3/uL (0.8-4.8); Lymphocytes % 23.9 %; Mean Corpuscular HGB Conc 31.6 g/dL (30-55); Mean Corpuscular Hemoglobin 28.6 pg (27-33); Mean Corpuscular Volume 90.6 fl (85-98); Mean Platelet Volume 10.1 fL (7.4-10.4); Monocytes # 0.7 10^3/uL (0.2-0.9); Monocytes % 6.8 %; Neutrophils # 7.23 10^3/uL (1.8-7.7); Neutrophils % 66.8 %; Nucleated Red Blood Cells # 0.2 /100WBC; Nucleated Red Blood Cells % 1.9 %; Platelet Count 186 10^3/cmm (157-399); Red Blood Count 2.13 10^6/uL (3.85-5.65); Red Cell Distribution Width 17.3 % (12.1-15.1); White Blood Count 10.83 10^3/uL (3.29-11.43)
[2023-10-24 01:22] LABS: Hematocrit 19.3 % (36-47)
--- NOTE | 2023-10-24 01:40 | P.PN_ITS ---
SPONSORSHIP COORDINATOR Subjective 2 Subjective: Interval history: Patient appears more alert In no distress Still having vaginal bleeding Estimated to be between 600-1000 cc since admission Received one dose of Premarin 25 mg IV Has been receiving transfusions Last Hgb drawn at 0100 6.1 Pelvic sono 10-23-23 uterus 10 x 6 x 6 cm Right ovary not seen Left ovary with 7.4 cm cyst Vitals/I&O/Wt Last Vital Signs Temp 97.8 F 10/24/23 02:10 Pulse 87 10/24/23 02:30 Resp 18 10/24/23 02:30 BP 144/68 10/24/23 02:30 Pulse Ox 98 10/24/23 02:30 O2 Del Method Nasal Cannula 10/23/23 20:23 O2 Flow Rate 2 10/23/23 20:23 FiO2 2 10/22/23 20:05 10/23/23 10/23/23 10/24/23 14:59 22:59 06:59 Intake Total 590 / 590 1209 / 1799 0 / 1799 Output Total 2800 / 2800 Balance 590 / 590 -1591 / -1001 0 / -1001 Weight last 48 hrs Weight 364 lb Weight 364 lb Weight 363 lb 11.2 oz Data 10/24/23 00:59 10/23/23 03:39 A&P Assessment and plan (1) Abnormal vaginal bleeding: Abnormal uterine bleeding Excessive vaginal bleeding Severe anemia Recommend repeat Premarin 25 mg IV x one Monitor bleeding If bleeding does not guillermo Consider Tranexamic acid one gram in 100 ml Normal Saline, slow IVP over 10 mins Consider bedside endometrial biopsy with placement of mirena IUD Attestations 2 Medical Necessity Statement*: patient with excessive uterine bleeding and severe anemia Coding Level of Care Code Acute Code for Chg Fwd Diagnoses Abnormal vaginal bleeding N93.9 Time Spent (min) 30
[2023-10-24] MEDS: FUROsemide 10 mg/mL SDV 4mL 40 MG IVP ×2 (02:20→09:53)
--- NOTE | 2023-10-24 02:46 | PC.NURSE ---
At 1999 assessment, lungs coarse and intermittent wet nonproductive cough. Spoke with Dr. Silva before administering blood, administered 40 mg lasix IV. Lungs clear at 0 assessment. Blood administered and following blood administration lungs were again coarse and pt had intermittent wet nonproductive cough. Contacted Dr. Smith and made aware, new order received and noted for another 40 mg dose of lasix.
[2023-10-24 04:55] LABS: Anion Gap 12.3 (5-19); Blood Urea Nitrogen 19 mg/dL (6-20); Calcium 7.8 mg/dL (8.5-10.5); Carbon Dioxide 31 mmol/L (22-29); Chloride 99 mmol/L (98-107); Creatinine Clr Calc Pharmacy 105.7933; Glomerular Filtration Rate 54.2 mL/min (90-130); Glucose 86 mg/dL (65-115); Osmolality Calculated 288 mOsm/kg (285-295); Potassium 4.3 mmol/L (3.5-5.1); Sodium 138 mmol/L (136-145)
[2023-10-24] MEDS: ipratropium-albuterol 3 mL Neb INHALATION (07:55)
[2023-10-24] MEDS: budesonide 0.5 mg/2 mL Neb INHALATION (07:55)
[2023-10-24] MEDS: pantoprazole DR 40 mg Tablet PO (08:34)
[2023-10-24 09:20] LABS: Basophils % 0.2 %; Eosinophils # 0.1 10^3/uL (0.0-0.8); Eosinophils % 0.9 %; Hematocrit 20.9 % (36-47); Lymphocytes # 1.9 10^3/uL (0.8-4.8); Lymphocytes % 22.8 %; Mean Corpuscular HGB Conc 32.1 g/dL (30-55); Mean Corpuscular Hemoglobin 29.3 pg (27-33); Mean Corpuscular Volume 91.3 fl (85-98); Monocytes # 0.4 10^3/uL (0.2-0.9); Monocytes % 4.9 %; Neutrophils # 5.78 10^3/uL (1.8-7.7); Neutrophils % 70.3 %; Nucleated Red Blood Cells # 0.1 /100WBC; Nucleated Red Blood Cells % 1.5 %; Platelet Count 164 10^3/cmm (157-399); Red Blood Count 2.29 10^6/uL (3.85-5.65); Red Cell Distribution Width 16.7 % (12.1-15.1); White Blood Count 8.21 10^3/uL (3.29-11.43)
--- NOTE | 2023-10-24 11:42 | P.PN_ITS ---
Subjective 2 Subjective: Patient says vaginal bleeding has slowed down a little bit She is status post 4 units packed RBC, 1 unit FFP, 1 unit platelet about to be transfused n ow. She received a central line yesterday evening by ER physician. Hemoglobin 6.7 this morning. 2 more units packed RBC ordered. Patient had to receive Lasix yesterday between transfusions. Will order another dose right now. Lungs sound crackly. Vitals/I&O/Wt Last Vital Signs Temp 98.8 F 10/24/23 10:16 Pulse 87 10/24/23 10:16 Resp 18 10/24/23 10:16 BP 86/44 10/24/23 10:16 Pulse Ox 98 10/24/23 10:16 O2 Del Method Nasal Cannula 10/24/23 10:00 O2 Flow Rate 2 10/24/23 10:00 FiO2 2 10/22/23 20:05 10/23/23 10/24/23 10/24/23 22:59 06:59 14:59 Intake Total 1209 / 1799 240 / 2039 1072 / 1072 Output Total 2800 / 2800 1080 / 3880 Balance -1591 / -1001 -840 / -1841 1072 / 1072 Weight last 48 hrs Weight 165.924 kg Weight 165.924 kg Weight 165.108 kg Weight 165.108 kg Weight 164.972 kg Physical Exam 2 Narrative: General: Comfortable appearing female HEENT: Head atraumatic, normocephalic to visual inspection CV: Normal rate and rhythm, S1-S2 noted, Pulm: Crackles bilaterally at bases GI: Obese abdomen, soft, non tender : Deferred?bleeding Extremities: Capillary refill <2 seconds, mild edema noted bilateral lower extremities. Data 10/24/23 09:08 10/24/23 03:39 A&P Assessment and plan (1) Acute blood loss anemia: Patient presents to the ED with prolonged vaginal bleeding after starting her menstrual period, onset approximately 3 weeks prior. Hemoglobin in the emergency department was 4.1. Bedside commode had visible blood and large clots. She has been having some shortness of breath, most likely associated with her anemia, however she is on oxygen 2 L, baseline at home. Patient denies having any hemoptysis, hematemesis, hematochezia. ? Obtain blood type and screen. ? Transfuse 2 units of blood. ? Repeat CBC?morning labs. This will be about the time when the transfusion is complete. ? Discontinue Eliquis. ? Oxygen therapy, titrate as needed to maintain oxygen above 94%. Transfuse further if symptomatic, especially if hemoglobin is less than 7. PHARMACY TECHNICIAN INPATIENT consultation will be obtained, as well as further imaging of her uterus and ovaries with CT scan and ultrasound. PHARMACY TECHNICIAN INPATIENT has directed estrogen be given, 25 mg IV x 1 Appreciate PHARMACY TECHNICIAN INPATIENT consultation (2) Vaginal bleeding: Patient is a 2 1 female who presents to the ED with prolonged vaginal bleeding after starting her menstrual period, onset approximately 3 weeks prior. She has a history of A-fib for which she takes Eliquis, started approximately 1 year prior, she reports that her menstrual periods have gotten heavier since the initiation. She reports having irregular menstrual periods, but her menstrual periods last about 7 days. Her last menstrual period was a few months prior, she cannot remember exactly when. Vaginal bleeding may be related to endometriosis or endometrial hyperplasia, related to chronic increased estrogen exposure due to her obesity. Possibility of ectopic or miscarriage was entertained, however, beta- hCG was negative, she has also had a bilateral tubal ligation in 2011, her has had a vasectomy. ? Consult NURSE ORTHOPAEDIC. ? Uterine ultrasound ordered by NURSE ORTHOPAEDIC. CT ordered as well. ? Conjugated estrogens, administered in the ED. ? Will continue to monitor, will follow NURSE ORTHOPAEDIC recommendations. ? Discontinue Eliquis. ? Repeat CBC?morning labs. (3) Atrial fibrillation: Patient has a history of atrial fibrillation, she has got a implanted pacemaker in place. Eliquis for anticoagulation. ? Discontinue Eliquis?acute bleeding. ? Vital signs are within normal limits, heart rate has not gone above 100. Continue sotalol. Dose confirmation with pharmacy techs, when meds are reconciled and restart this medication. (4) CHF (congestive heart failure): Patient has a history of CHF. She takes furosemide at home. BNP was 374. ? Will continue to monitor. ? Patient is on Lasix at home, patient was unable to recall her home dose, will reconcile medication in the morning. Likely will need to restart considering volume of blood that may need to be transfused. Qualifiers: Heart failure type: diastolic Heart failure chronicity: acute on chronic Qualified Code(s): I50.33 - Acute on chronic diastolic (congestive) heart failure Plan COPD. Budesonide twice daily. DuoNeb every 6 hours as needed Obstructive sleep apnea. BiPAP in the hospital was sleeping Multiple other medical problems as outlined in past medical history Full code SCDs for DVT prophylaxis. Hold anticoagulation secondary to active bleeding. Todays plan 10/23 - order 2 more units prbc, -Patient has received 4 units so far, 1 FFP. ? 1 platelet to be transfused now. -Will recheck CBC thereafter ? Discussed with Dr. Daley. ? Plan to order Premarin 25 mg every 6 hours x 4 doses total ? Then Dr. Daley plans to place Mirena IUD at the bedside. ? He will then plan to cleared patient for discharge and schedule hysterectomy at a later time as an outpatient elective procedure. ? No plan to do hysterectomy during this hospitalization. ? Continue to hold Eliquis for now. ? Sotalol also being held. Once hemodynamically more stable I may order sotalol as patient's blood pressures have been borderline low as well. ? Recommendations appreciated from NURSE ORTHOPAEDIC. ? Continue with above plan ? Once hemoglobin above 8 and bleeding has slowed down we may plan to discharge her home with close follow-up with NURSE ORTHOPAEDIC outpatient. Attestations 2 Medical Necessity Statement*: Continue to manage acute blood loss. Diagnoses Acute blood loss anemia D62 Vaginal bleeding N93.9 Atrial fibrillation I48.91 Acute on chronic diastolic congestive heart failure I50.33 Heart failure type: diastolic Heart failure chronicity: acute on chronic
--- NOTE | 2023-10-24 13:05 | P.PN_ITS ---
DOCTOR OF OSTEOPATHY Subjective 2 Subjective: Interval history: Bleeding much decreased with Premarin 25 mg IV Discuss[address] with Dr. Chou Plan continue Premarin 25 mg IV Q6 h x 4 doses, then discontinue When patient is medically stable, consider bedside endometrial biopsy with placement of mirena IUD will continue to follow Vitals/I&O/Wt Last Vital Signs Temp 99.2 F 10/24/23 20:26 Pulse 90 10/24/23 22:00 Resp 21 H 10/24/23 22:00 BP 107/59 10/24/23 22:00 Pulse Ox 91 10/24/23 22:00 O2 Del Method Nasal Cannula 10/24/23 22:00 O2 Flow Rate 2 10/24/23 22:00 FiO2 2 10/22/23 20:05 10/24/23 10/24/23 10/24/23 06:59 14:59 22:59 Intake Total 240 / 2039 1472 / 1472 1340 / 2812 Output Total 1080 / 3880 1080 / 1080 1395 / 2475 Balance -840 / -1841 392 / 392 -55 / 337 Weight last 48 hrs Weight 365 lb 12.8 oz Weight 365 lb 12.8 oz Weight 364 lb Weight 364 lb Weight 363 lb 11.2 oz Data 10/24/23 16:23 10/24/23 03:39 A&P Assessment and plan (1) Abnormal vaginal bleeding: Abnormal uterine bleeding Excessive vaginal bleeding Severe anemia Improved with Premarin 25 mg IV Plan continue Premarin 25 mg IV q 6 h x 24 hours Attestations 2 Medical Necessity Statement*: patient with excessive uterine bleeding and severe anemia Coding Level of Care Code Acute Code for Chg Fwd Diagnoses Abnormal vaginal bleeding N93.9 Time Spent (min) 45
[2023-10-24] MEDS: FUROsemide 10 mg/mL SDV 10mL 60 MG IVP (15:00)
[2023-10-24 16:46] LABS: Basophils % 0.3 %; Eosinophils # 0.2 10^3/uL (0.0-0.8); Eosinophils % 1.9 %; Hematocrit 23.1 % (36-47); Lymphocytes # 1.9 10^3/uL (0.8-4.8); Lymphocytes % 22.1 %; Mean Corpuscular HGB Conc 32.5 g/dL (30-55); Mean Corpuscular Hemoglobin 29.2 pg (27-33); Mean Corpuscular Volume 89.9 fl (85-98); Mean Platelet Volume 9.9 fL (7.4-10.4); Monocytes # 0.6 10^3/uL (0.2-0.9); Monocytes % 6.9 %; Neutrophils # 5.87 10^3/uL (1.8-7.7); Neutrophils % 68.1 %; Nucleated Red Blood Cells # 0.1 /100WBC; Nucleated Red Blood Cells % 0.8 %; Platelet Count 196 10^3/cmm (157-399); Red Blood Count 2.57 10^6/uL (3.85-5.65); Red Cell Distribution Width 16.4 % (12.1-15.1); White Blood Count 8.61 10^3/uL (3.29-11.43)
[2023-10-24] MEDS: water for injection-sterile SDV 10 mL IVP (17:40)
--- NOTE | 2023-10-24 19:43 | PC.NURSE ---
Shift note: Overall uneventful shift, see charted vitals and TAR for administration of blood and blood products. Dr. Chou contacted for over night blood or blood product orders, as well as calcium replacement. No new orders received at this time. Patient reported no pain throughout day shift, however with position changes for hygiene assessment, patient did report that her abdomen was hurting.
[2023-10-24] MEDS: water for injection-sterile 10 ML 12 ML (23:22)
[2023-10-25] VITALS (47 sets, daily range): BP systolic 81–167; BP diastolic 36–79; PULSE 67–105; RESP 15–29; TEMP 36.7–37.6; O2SAT 95–100; BMI 58.8
[2023-10-25] MEDS: acetaminophen 325 mg Tablet 650 MG PO (00:58)
[2023-10-25 01:01] LABS: Basophils % 0.4 %; Eosinophils # 0.2 10^3/uL (0.0-0.8); Eosinophils % 1.9 %; Lymphocytes # 2.1 10^3/uL (0.8-4.8); Lymphocytes % 22.6 %; Mean Corpuscular HGB Conc 32.1 g/dL (30-55); Mean Corpuscular Hemoglobin 28.6 pg (27-33); Mean Corpuscular Volume 89.2 fl (85-98); Mean Platelet Volume 9.6 fL (7.4-10.4); Monocytes # 0.6 10^3/uL (0.2-0.9); Neutrophils # 6.16 10^3/uL (1.8-7.7); Neutrophils % 67.7 %; Nucleated Red Blood Cells # 0.1 /100WBC; Platelet Count 181 10^3/cmm (157-399); Red Blood Count 2.69 10^6/uL (3.85-5.65); Red Cell Distribution Width 15.8 % (12.1-15.1); White Blood Count 9.11 10^3/uL (3.29-11.43)
[2023-10-25 01:22] LABS: Alanine Aminotransferase 9 U/L (0-33); Albumin Level 2.9 g/dL (3.5-5.2); Alkaline Phosphatase 96 U/L (35-105); Anion Gap 9.4 (5-19); Aspartate Amino Transferase 11 U/L (0-32); Blood Urea Nitrogen 19 mg/dL (6-20); Calcium 7.9 mg/dL (8.5-10.5); Carbon Dioxide 34 mmol/L (22-29); Chloride 99 mmol/L (98-107); Creatinine Clr Calc Pharmacy 97.2887; Globulin 2.6 g/dL (1.3-4.6); Glucose 98 mg/dL (65-115); Magnesium 2.1 mg/dL (1.7-2.3); Osmolality Calculated 288 mOsm/kg (285-295); Potassium 4.4 mmol/L (3.5-5.1); Sodium 138 mmol/L (136-145); Total Bilirubin 0.6 mg/dL (0.15-1.2); Total Protein 5.5 g/dL (6.6-8.7)
[2023-10-25] MEDS: FUROsemide 10 mg/mL SDV 4mL 40 MG IVP ×3 (01:26→22:23)
[2023-10-25] MEDS: estrogens Conjugated 25 mg/5 mL SDV IVP (05:26)
[2023-10-25] MEDS: water for injection-sterile 10 ML 5 ML (05:27)
[2023-10-25] MEDS: pantoprazole DR 40 mg Tablet PO (07:46)
--- NOTE | 2023-10-25 08:47 | P.PN_ITS ---
Subjective 2 Subjective: Seen this morning. No acute events overnight. Vaginal bleeding has slowed down. Hemoglobin 7.7 this morning. Briefly discussed with cardiology over the phone regarding patient sotalol. It is recommended that patient not take sotalol for now as Eliquis is also been held. We should attempt for rate control at this time. Patient is rate controlled. Continue metoprolol titrate 25 twice daily. Patient to follow-up with Dr. Reyes as an outpatient at discharge. Urine output in last 24 hours 3 L. Vitals/I&O/Wt Last Vital Signs Temp 98.0 F 10/25/23 05:14 Pulse 85 10/25/23 06:00 Resp 21 H 10/25/23 06:00 BP 115/60 10/25/23 06:00 Pulse Ox 95 10/25/23 06:00 O2 Del Method Nasal Cannula 10/25/23 06:00 O2 Flow Rate 2 10/25/23 06:00 FiO2 2 10/22/23 20:05 10/24/23 10/25/23 10/25/23 22:59 06:59 14:59 Intake Total 1340 / 2812 840 / 3652 Output Total 1395 / 2475 1540 / 4015 Balance -55 / 337 -700 / -363 Weight last 48 hrs Weight 165.47 kg Weight 165.924 kg Weight 165.924 kg Physical Exam 2 Narrative: General: Comfortable appearing female HEENT: Head atraumatic, normocephalic to visual inspection CV: Normal rate and rhythm, S1-S2 noted, Pulm: Very mild crackles bilaterally at bases. GI: Obese abdomen, soft, non tender : Deferred?bleeding Extremities: Capillary refill <2 seconds, mild edema noted bilateral lower extremities. Data 10/25/23 08:55 10/25/23 00:49 A&P Assessment and plan (1) Acute blood loss anemia: Patient presents to the ED with prolonged vaginal bleeding after starting her menstrual period, onset approximately 3 weeks prior. Hemoglobin in the emergency department was 4.1. Bedside commode had visible blood and large clots. She has been having some shortness of breath, most likely associated with her anemia, however she is on oxygen 2 L, baseline at home. Patient denies having any hemoptysis, hematemesis, hematochezia. ? Obtain blood type and screen. ? Transfuse 2 units of blood. ? Repeat CBC?morning labs. This will be about the time when the transfusion is complete. ? Discontinue Eliquis. ? Oxygen therapy, titrate as needed to maintain oxygen above 94%. Transfuse further if symptomatic, especially if hemoglobin is less than 7. OIL DEVELOPER consultation will be obtained, as well as further imaging of her uterus and ovaries with CT scan and ultrasound. OIL DEVELOPER has directed estrogen be given, 25 mg IV x 1 Appreciate OIL DEVELOPER consultation (2) Vaginal bleeding: Patient is a 2 1 female who presents to the ED with prolonged vaginal bleeding after starting her menstrual period, onset approximately 3 weeks prior. She has a history of A-fib for which she takes Eliquis, started approximately 1 year prior, she reports that her menstrual periods have gotten heavier since the initiation. She reports having irregular menstrual periods, but her menstrual periods last about 7 days. Her last menstrual period was a few months prior, she cannot remember exactly when. Vaginal bleeding may be related to endometriosis or endometrial hyperplasia, related to chronic increased estrogen exposure due to her obesity. Possibility of ectopic or miscarriage was entertained, however, beta- hCG was negative, she has also had a bilateral tubal ligation in 2011, her has had a vasectomy. ? Consult SALES ENGAGEMENT MANAGER. ? Uterine ultrasound ordered by SALES ENGAGEMENT MANAGER. CT ordered as well. ? Conjugated estrogens, administered in the ED. ? Will continue to monitor, will follow SALES ENGAGEMENT MANAGER recommendations. ? Discontinue Eliquis. ? Repeat CBC?morning labs. (3) Atrial fibrillation: Patient has a history of atrial fibrillation, she has got a implanted pacemaker in place. Eliquis for anticoagulation. ? Discontinue Eliquis?acute bleeding. ? Vital signs are within normal limits, heart rate has not gone above 100. Continue sotalol. Dose confirmation with pharmacy techs, when meds are reconciled and restart this medication. (4) CHF (congestive heart failure): Patient has a history of CHF. She takes furosemide at home. BNP was 374. ? Will continue to monitor. ? Patient is on Lasix at home, patient was unable to recall her home dose, will reconcile medication in the morning. Likely will need to restart considering volume of blood that may need to be transfused. Qualifiers: Heart failure chronicity: acute on chronic Heart failure type: d iastolic Qualified Code(s): I50.33 - Acute on chronic diastolic (congestive) heart failure Plan COPD. Budesonide twice daily. DuoNeb every 6 hours as needed Obstructive sleep apnea. BiPAP in the hospital was sleeping Multiple other medical problems as outlined in past medical history Full code SCDs for DVT prophylaxis. Hold anticoagulation secondary to active bleeding. Todays plan 5/ -Patient is status post 6 unit packed RBC, 1 unit FFP, 1 unit platelet ? Continue to monitor in ICU patient's hemoglobin. Transfuse if less than 7. ?? Discussed with Dr. Daley. ? Plan to order Premarin 25 mg every 6 hours x 4 doses total. Fourth dose to complete today. ? Then Dr. Daley plans to place Mirena IUD at the bedside. ? He will then plan to cleared patient for discharge and schedule hysterectomy at a later time as an outpatient elective procedure. ? No plan to do hysterectomy during this hospitalization. ? Continue to hold Eliquis for now. ? Sotalol also being held. Discussed with cardiology. Patient to follow-up with cardiology as an outpatient. Continue to hold sotalol at discharge. Placed on metoprolol tartrate 25 twice daily for now. ? Recommendations appreciated from SALES ENGAGEMENT MANAGER. ? Continue with above plan ? Once hemoglobin above 8 and bleeding has slowed down we may plan to discharge her home with close follow-up with SALES ENGAGEMENT MANAGER outpatient. -Patient did have 100 mg IV Lasix yesterday. ? Continue Lasix 40 IV twice daily which is patient's home dose. -If next CBC shows stable hemoglobin patient may transfer to floor. Attestations 2 Medical Necessity Statement*: patient with excessive uterine bleeding and severe anemia Diagnoses Acute blood loss anemia D62 Vaginal bleeding N93.9 Atrial fibrillation I48.91 Acute on chronic diastolic congestive heart failure I50.33 Heart failure chronicity: acute on chronic Heart failure type: diastolic
[2023-10-25] MEDS: ipratropium-albuterol 3 mL Neb INHALATION (08:51)
[2023-10-25] MEDS: budesonide 0.5 mg/2 mL Neb INHALATION ×2 (08:51→19:40)
[2023-10-25 09:00] LABS: Basophils % 0.2 %; Eosinophils # 0.2 10^3/uL (0.0-0.8); Eosinophils % 2.2 %; Hematocrit 26.5 % (36-47); Lymphocytes # 1.6 10^3/uL (0.8-4.8); Lymphocytes % 19.5 %; Mean Corpuscular HGB Conc 32.1 g/dL (30-55); Mean Corpuscular Hemoglobin 28.7 pg (27-33); Mean Corpuscular Volume 89.5 fl (85-98); Mean Platelet Volume 9.8 fL (7.4-10.4); Monocytes # 0.6 10^3/uL (0.2-0.9); Monocytes % 6.7 %; Neutrophils # 5.92 10^3/uL (1.8-7.7); Neutrophils % 70.8 %; Nucleated Red Blood Cells # 0.1 /100WBC; Nucleated Red Blood Cells % 0.7 %; Platelet Count 179 10^3/cmm (157-399); Red Blood Count 2.96 10^6/uL (3.85-5.65); Red Cell Distribution Width 15.1 % (12.1-15.1); White Blood Count 8.36 10^3/uL (3.29-11.43)
[2023-10-25] MEDS: metoprolol tartrate 25 mg Tablet PO ×2 (10:26→22:23)
[2023-10-25 17:22] LABS: Basophils % 0.3 %; Eosinophils # 0.2 10^3/uL (0.0-0.8); Eosinophils % 2.4 %; Hematocrit 25.7 % (36-47); Lymphocytes # 2.1 10^3/uL (0.8-4.8); Lymphocytes % 22.8 %; Mean Corpuscular HGB Conc 32.7 g/dL (30-55); Mean Corpuscular Hemoglobin 29.9 pg (27-33); Mean Corpuscular Volume 91.5 fl (85-98); Mean Platelet Volume 10.3 fL (7.4-10.4); Monocytes # 0.8 10^3/uL (0.2-0.9); Monocytes % 8.4 %; Neutrophils # 5.92 10^3/uL (1.8-7.7); Neutrophils % 65.8 %; Nucleated Red Blood Cells # 0.1 /100WBC; Nucleated Red Blood Cells % 0.7 %; Platelet Count 198 10^3/cmm (157-399); Red Blood Count 2.81 10^6/uL (3.85-5.65); Red Cell Distribution Width 15.1 % (12.1-15.1); White Blood Count 9.02 10^3/uL (3.29-11.43)
--- NOTE | 2023-10-25 17:40 | P.PN_ITS ---
HAND TWISTER Subjective 2 Subjective: Interval history: Patient awake, alert, appropriate Bleeding decreased but still present Hgb 5-2-24, 1600 8.4 Discussed with patient options of treatment, including depo-Provera, mirena IUD, endometrial ablation, hysterectomy patient states she only wants hysterectomy refuses the above other options plan to wait for patient to be stable for discharge will arrange for appointment for patient to be seen by Sr Technical Sales Consultant Oncology at [facility] for possible hysterectomy, due to patient?s multiple medical risk factors and morbid obesity. Vitals/I&O/Wt Last Vital Signs Temp 98.4 F 10/25/23 20:00 Pulse 88 10/25/23 22:17 Resp 16 10/25/23 22:17 BP 123/73 10/25/23 22:17 Pulse Ox 96 10/25/23 22:17 O2 Del Method Nasal Cannula 10/25/23 22:17 O2 Flow Rate 1.5 10/25/23 22:17 FiO2 2 10/22/23 20:05 10/25/23 10/25/23 10/26/23 14:59 22:59 06:59 Intake Total 480 / 480 Output Total 1300 / 1300 920 / 2220 1350 / 3570 Balance -820 / -820 -920 / -1740 -1350 / -3090 Weight last 48 hrs Weight 364 lb 12.8 oz Weight 365 lb 12.8 oz Weight 365 lb 12.8 oz Data 10/25/23 16:49 10/25/23 00:49 A&P Assessment and plan (1) Abnormal vaginal bleeding: Attestations 2 Medical Necessity Statement*: patient admitted with excessive uterine bleeding and severe anemia Coding Level of Care Code Acute Code for Chg Fwd Diagnoses Abnormal vaginal bleeding N93.9
[2023-10-26] VITALS (8 sets, daily range): BP systolic 109–128; BP diastolic 63–75; PULSE 77–84; RESP 16–21; TEMP 36.7–37.2; O2SAT 97–98
[2023-10-26 05:42] LABS: Basophils % 0.3 %; Eosinophils # 0.2 10^3/uL (0.0-0.8); Eosinophils % 2.5 %; Hematocrit 25.8 % (36-47); Lymphocytes # 2.3 10^3/uL (0.8-4.8); Lymphocytes % 24.5 %; Mean Corpuscular HGB Conc 30.6 g/dL (30-55); Mean Corpuscular Hemoglobin 28.1 pg (27-33); Mean Corpuscular Volume 91.8 fl (85-98); Mean Platelet Volume 10.2 fL (7.4-10.4); Monocytes # 0.6 10^3/uL (0.2-0.9); Monocytes % 6.2 %; Neutrophils # 6.13 10^3/uL (1.8-7.7); Neutrophils % 66.1 %; Nucleated Red Blood Cells % 0.3 %; Platelet Count 180 10^3/cmm (157-399); Red Blood Count 2.81 10^6/uL (3.85-5.65); Red Cell Distribution Width 15.3 % (12.1-15.1); White Blood Count 9.29 10^3/uL (3.29-11.43)
[2023-10-26 06:15] LABS: Anion Gap 12.3 (5-19); Blood Urea Nitrogen 22 mg/dL (6-20); Calcium 8.4 mg/dL (8.5-10.5); Carbon Dioxide 33 mmol/L (22-29); Chloride 99 mmol/L (98-107); Creatinine Clr Calc Pharmacy 105.4152; Glomerular Filtration Rate 54.2 mL/min (90-130); Glucose 87 mg/dL (65-115); Osmolality Calculated 293 mOsm/kg (285-295); Potassium 4.3 mmol/L (3.5-5.1); Sodium 140 mmol/L (136-145)
[2023-10-26] MEDS: budesonide 0.5 mg/2 mL Neb INHALATION ×2 (09:07→22:04)
[2023-10-26] MEDS: metoprolol tartrate 25 mg Tablet PO ×2 (09:44→21:24)
[2023-10-26] MEDS: pantoprazole DR 40 mg Tablet PO (09:44)
[2023-10-26] MEDS: FUROsemide 10 mg/mL SDV 4mL 40 MG IVP ×2 (09:44→21:24)
--- NOTE | 2023-10-26 10:48 | ECG_ITS ---
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 Measurements Intervals [place] Rate: 80 P: 223 IL: 234 QRS: -41 QRSD: 104 T: 109 QT: 377 QTc: 435 Interpretive Statements ELECTRONIC ATRIAL PACEMAKER LEFT VENTRICULAR HYPERTROPHY AND ST-T CHANGE [VOLTAGE CRITERIA PLUS ST/T ABNORMALITY] INFERIOR MYOCARDIAL INFARCTION , AGE INDETERMINATE ANTEROLATERAL MYOCARDIAL INFARCTION , AGE INDETERMINATE Compared to ECG 10/22/2023 20:14:17 Left ventricular hypertrophy now present ST (T wave) deviation now present Myocardial infarct finding now present Sinus rhythm no longer present T-wave abnormality no longer present Electronically Signed On 10-26-2023 14:25:14 CDT by Jaydon Fernandez M.D. [id number]
[2023-10-26] MEDS: magnesium sulfate premix 1 GM/100 ML PIGGYBACK IV (11:06)
[2023-10-26] MEDS: amiodarone 150 MG/100 ML PREMIX 400 MG IV (11:13)
--- NOTE | 2023-10-26 11:35 | PC.NURSE ---
Report was called to [facility], in [facility]. Updated on patients staus, reason for transfer, and patients history. All questions addressed at this time.
[2023-10-26 11:49] LABS: Magnesium 2.2 mg/dL (1.7-2.3); NT Pro B Type Natriuretic Pept 206 pg/mL (0-125)
[2023-10-26 12:28] LABS: Troponin(5th) Baseline 9 ng/L (0-10)
--- NOTE | 2023-10-26 13:48 | P.CONIM_ITS ---
Providers/Reason For Consult 2 Consulting Physician/Specialty*: Jaydon Fernandez MD/ Cardiology Reason for Consult*: Tachyarrhythmias Requesting Physician: Dr Chou Attending Physician: Vivian Chou MD Primary Care Provider: Jason Castro History of Present Illness History of Present Illness Le Max is a 43 year old female with past medical history of atrial fibrillation on Eliquis who was admitted to hospital with vaginal bleeding and severe anemia. Anticoagulation has been on hold. She was on sotalol as outpatient. It was held during hospitalization. Cardiology was consulted as patient has been having intermittent wide-complex tachycardia. She has pacemaker in place as well. Review of Systems 2 General: Reports: 10 or more systems reviewed and unremarkable except in HPI and below Narrative: Negative except as noted above in the HPI. Const: Reports: chills and fatigue Card: Reports: palpitations; Denies: chest pain Resp: Reports: dyspnea and non-productive cough GI: Reports: abdominal pain (Bilateral lower quadrants) : Reports: vaginal bleeding Medications/Allergies Home Medications Medication Instructions Recorded Confirmed Last Taken Type apixaban 5 mg tablet (Eliquis) 5 mg PO BID 10/23/23 10/23/23 Unknown History atorvastatin 40 mg tablet 40 mg PO DAILY 10/23/23 10/23/23 Unknown History furosemide 40 mg tablet 40 mg PO BID 10/23/23 10/23/23 Unknown History levothyroxine 75 mcg tablet 75 mcg PO DAILY 10/23/23 10/23/23 Unknown History pantoprazole 40 mg tablet,delayed 40 mg PO DAILY 10/23/23 10/23/23 Unknown History release sotalol 80 mg tablet 80 mg PO DAILY 10/23/23 10/23/23 Unknown History spironolactone 25 mg tablet 25 mg PO DAILY 10/23/23 10/23/23 Unknown History Allergies Allergy/AdvReac Type Severity Reaction Status Date / Time No Known Allergies Allergy Verified 10/22/23 20:09 Current Medications Generic Name Dose Route Start Last Admin Trade Name Freq PRN Reason Stop Dose Admin Acetaminophen 650 mg 10/23/23 00:09 10/25/23 00:58 Acetaminophen 325 Mg Tablet PO 650 mg Q6H PRN Administration MILD PAIN Albuterol/Ipratropium 3 ml 10/23/23 00:09 10/25/23 08:51 Ipratropium-Albuterol 3 Ml Neb INHALATION 3 ml Q6H PRN Administration SHORTNESS OF BREATH Budesonide 0.5 mg 10/23/23 08:00 10/26/23 09:07 Budesonide 0.5 Mg/2 Ml Neb INHALATION 0.5 mg BID.RESPIRATORY STERLING Administration Furosemide 40 mg 10/25/23 09:00 10/26/23 09:44 Furosemide 10 Mg/Ml Sdv 4ml IVP 40 mg Q12H STERLING Administration Amiodarone HCl/Dextrose 360 mg in 200 mls @ 0 mls/hr 10/26/23 11:45 10/26/23 13:02 Nexterone IV Infused .Q0M STERLING Titration Protocol Per Protocol Metoprolol Tartrate 25 mg 10/25/23 09:00 10/26/23 09:44 Metoprolol Tartrate 25 Mg Tablet PO 25 mg BID@0900,2100 STERLING Administration Pantoprazole Sodium 40 mg 10/23/23 09:00 10/26/23 09:[address] 40 Mg Tablet PO 40 mg DAILY STERLING Administration PFSH Acute 2 PFSH: Medical History Atrial fibrillation Hypothyroidism Hyperlipidemia Chronic kidney disease COPD (chronic obstructive pulmonary disease) Obstructive sleep apnea Hypoxia Hypertension screen Vitamin D deficiency Medication management Polycystic ovarian disease CHF (congestive heart failure) Essential hypertension Surgical History S/P D&C (status post dilation and curettage) S/P tubal ligation S/P cholecystectomy Social History Smoking and tobacco/nicotine status: former use of tobacco/nicotine Quit status (tobacco/nicotine): has quit using Second hand smoke exposure: No Alcohol intake: never Substance/Drug Use: never Female Reproductive History: Date of last menstrual period: 10/23/23 control method: none : 3 Para: 1 Spontaneous abortions: Yes (2) Vitals/I&O/Wt Last Vital Signs Temp 98.3 F 10/26/23 12:00 Pulse 77 10/26/23 12:00 Resp 19 H 10/26/23 12:00 BP 118/63 10/26/23 12:00 Pulse Ox 97 10/26/23 09:07 O2 Del Method Nasal Cannula 10/26/23 09:07 O2 Flow Rate 2 10/26/23 09:07 FiO2 2 10/22/23 20:05 10/25/23 10/26/23 10/26/23 22:59 06:59 14:59 Intake Total 880 / 880 Output Total 920 / 2220 1725 / 3945 275 / 275 Balance -920 / -1740 -1725 / -3465 605 / 605 Weight last 48 hrs Weight 362 lb Weight 364 lb 12.8 oz Physical Exam 2 Narrative: GENERAL: Patient is alert, awake and oriented x3. [] NECK: No jugular vein distension. [] HEENT: No cyanosis. No icterus. No pallor. [] HEART: Regular S1 and S2. No murmur, rub or gallop. [] LUNGS: Clear to auscultate bilaterally. [] CENTRAL NERVOUS SYSTEM: Grossly nonfocal. [] EXTREMITIES: Lower extremities with 1+ edema bilaterally. Data 10/27/23 04:15 10/27/23 04:15 A&P Assessment and plan (1) Tachycardia, unspecified: (2) Essential hypertension: Plan Patient has intermittent tachycardic episodes that are not prolonged. This is consistent with atrial flutter with aberrancy. We can start amiodarone. Will switch to p.o. tomorrow. Holding anticoagulation. No further cardiac work up at this time. Thank you for involving us with care of this patient. Please call with questions. Consult Attestations 2 Medical Necessity Statement: Care expected to cross 2 midnights. Coding Level of Care Code Acute Code for Chg Fwd Diagnoses Tachycardia, unspecified R00.0 Essential hypertension I10
--- NOTE | 2023-10-26 13:56 | ECG_ITS ---
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 Measurements Intervals [place] Rate: 71 P: 48 MA: 217 QRS: 32 QRSD: 114 T: 70 QT: 388 QTc: 424 Interpretive Statements SINUS RHYTHM WITH FIRST DEGREE AV BLOCK LOW QRS VOLTAGE IN PRECORDIAL LEADS [QRS DEFLECTION < 1.0 mV IN CHEST LEADS] MODERATE INTRAVENTRICULAR CONDUCTION DELAY [110+ ms QRS DURATION] Compared to ECG 10/26/2023 10:48:23 First degree AV block now present Low QRS voltage now present Intraventricular conduction delay now present Atrial-paced complex(es) or rhythm no longer present Left ventricular hypertrophy no longer present ST (T wave) deviation no longer present Myocardial infarct finding no longer present Electronically Signed On 10-26-2023 14:26:56 CDT by Jaydon Fernandez M.D. [id number]
--- NOTE | 2023-10-26 14:51 | PC.NURSE ---
received from med/surg unit at 1220,into room 105.report received.pt is alert and oriented x 4.denies pain at present.sr on monitor.oriented to room environment.instructed to notify staff for any sob,chest pain,palpitations,vaginal bleeding,or for any concerns at all.pt verb understanding of instructions.
--- NOTE | 2023-10-26 15:09 | P.PN_ITS ---
Subjective 2 Subjective: seen today pt tachycardic paced atrial rhythm, at one point, questionable short run of v.tach cardio consulted amio bolus given mg 1 g given moved to csu Vitals/I&O/Wt Last Vital Signs Temp 98.3 F 10/26/23 12:00 Pulse 77 10/26/23 12:00 Resp 19 H 10/26/23 12:00 BP 118/63 10/26/23 12:00 Pulse Ox 97 10/26/23 09:07 O2 Del Method Nasal Cannula 10/26/23 09:07 O2 Flow Rate 2 10/26/23 09:07 FiO2 2 10/22/23 20:05 10/26/23 10/26/23 10/26/23 06:59 14:59 22:59 Intake Total 880 / 880 0 / 880 Output Total 1725 / 3945 1000 / 1000 Balance -1725 / -3465 -120 / -120 0 / -120 Weight last 48 hrs Weight 164.2 kg Weight 165.47 kg Physical Exam 2 Narrative: General: Comfortable appearing female HEENT: Head atraumatic, normocephalic to visual inspection CV: Normal rate and rhythm, S1-S2 noted, Pulm: cta b/l GI: Obese abdomen, soft, non tender : Deferred?bleeding Extremities: Capillary refill <2 seconds, mild edema noted bilateral lower extremities. Data 10/26/23 04:47 10/26/23 04:47 A&P Assessment and plan (1) Acute blood loss anemia: Patient presents to the ED with prolonged vaginal bleeding after starting her menstrual period, onset approximately 3 weeks prior. Hemoglobin in the emergency department was 4.1. Bedside commode had visible blood and large clots. She has been having some shortness of breath, most likely associated with her anemia, however she is on oxygen 2 L, baseline at home. Patient denies having any hemoptysis, hematemesis, hematochezia. ? Obtain blood type and screen. ? Transfuse 2 units of blood. ? Repeat CBC?morning labs. This will be about the time when the transfusion is complete. ? Discontinue Eliquis. ? Oxygen therapy, titrate as needed to maintain oxygen above 94%. Transfuse further if symptomatic, especially if hemoglobin is less than 7. SPECIAL COLLECTIONS LIBRARIAN consultation will be obtained, as well as further imaging of her uterus and ovaries with CT scan and ultrasound. SPECIAL COLLECTIONS LIBRARIAN has directed estrogen be given, 25 mg IV x 1 Appreciate SPECIAL COLLECTIONS LIBRARIAN consultation (2) Vaginal bleeding: Patient is a [age] female who presents to the ED with prolonged vaginal bleeding after starting her menstrual period, onset approximately 3 weeks prior. She has a history of A-fib for which she takes Eliquis, started approximately 1 year prior, she reports that her menstrual periods have gotten heavier since the initiation. She reports having irregular menstrual periods, but her menstrual periods last about 7 days. Her last menstrual period was a few months prior, she cannot remember exactly when. Vaginal bleeding may be related to endometriosis or endometrial hyperplasia, related to chronic increased estrogen exposure due to her obesity. Possibility of ectopic or miscarriage was entertained, however, beta- hCG was negative, she has also had a bilateral tubal ligation in 2011, her has had a vasectomy. ? Consult GLASS CLEANER. ? Uterine ultrasound ordered by GLASS CLEANER. CT ordered as well. ? Conjugated estrogens, administered in the ED. ? Will continue to monitor, will follow GLASS CLEANER recommendations. ? Discontinue Eliquis. ? Repeat CBC?morning labs. (3) Atrial fibrillation: Patient has a history of atrial fibrillation, she has got a implanted pacemaker in place. Eliquis for anticoagulation. ? Discontinue Eliquis?acute bleeding. ? Vital signs are within normal limits, heart rate has not gone above 100. Continue sotalol. Dose confirmation with pharmacy techs, when meds are reconciled and restart this medication. (4) CHF (congestive heart failure): Patient has a history of CHF. She takes furosemide at home. BNP was 374. ? Will continue to monitor. ? Patient is on Lasix at home, patient was unable to recall her home dose, will reconcile medication in the morning. Likely will need to restart considering volume of blood that may need to be transfused. Qualifiers: Heart failure type: diastolic Heart failure chronicity: acute on chronic Qualified Code(s): I50.33 - Acute on chronic diastolic (congestive) heart failure Plan COPD. Budesonide twice daily. DuoNeb every 6 hours as needed Obstructive sleep apnea. BiPAP in the hospital was sleeping Multiple other medical problems as outlined in past medical history Full code SCDs for DVT prophylaxis. Hold anticoagulation secondary to active bleeding. Todays plan 5/ -Patient is status post 6 unit packed RBC, 1 unit FFP, 1 unit platelet ? Continue to monitor in ICU patient's hemoglobin. Transfuse if less than 7. ?? Discussed with Dr. Daley. ? Plan to order Premarin 25 mg every 6 hours x 4 doses total. Fourth dose to complete today. ? Then Dr. Daley plans to place Mirena IUD at the bedside. ? He will then plan to cleared patient for discharge and schedule hysterectomy at a later time as an outpatient elective procedure. ? No plan to do hysterectomy during this hospitalization. ? Continue to hold Eliquis for now. ? Sotalol also being held. Discussed with cardiology. Patient to follow-up with cardiology as an outpatient. Continue to hold sotalol at discharge. Placed on metoprolol tartrate 25 twice daily for now. ? Recommendations appreciated from GLASS CLEANER. ? Continue with above plan ? Once hemoglobin above 8 and bleeding has slowed down we may plan to discharge her home with close follow-up with GLASS CLEANER outpatient. -Patient did have 100 mg IV Lasix yesterday. ? Continue Lasix 40 IV twice daily which is patient's home dose. Consult cardiology request cardio records from [facility] [place] if hb stable tomorrow, may dc home with close f/u outpatient will need robot assisted hysterectomy, will need referral to f Attestations 2 Medical Necessity Statement*: patient admitted with excessive uterine bleeding and severe anemia Diagnoses Acute blood loss anemia D62 Vaginal bleeding N93.9 Atrial fibrillation I48.91 Acute on chronic diastolic congestive heart failure I50.33 Heart failure type: diastolic Heart failure chronicity: acute on chronic
[2023-10-26 16:26] LABS: Basophils % 0.3 %; Eosinophils # 0.2 10^3/uL (0.0-0.8); Eosinophils % 2.3 %; Hematocrit 25.3 % (36-47); Lymphocytes # 1.8 10^3/uL (0.8-4.8); Mean Corpuscular HGB Conc 30.8 g/dL (30-55); Mean Corpuscular Hemoglobin 28.4 pg (27-33); Monocytes # 0.4 10^3/uL (0.2-0.9); Monocytes % 5.4 %; Neutrophils # 4.99 10^3/uL (1.8-7.7); Neutrophils % 67.7 %; Nucleated Red Blood Cells % 0.4 %; Platelet Count 173 10^3/cmm (157-399); Red Blood Count 2.75 10^6/uL (3.85-5.65); Red Cell Distribution Width 15.5 % (12.1-15.1); White Blood Count 7.37 10^3/uL (3.29-11.43)
[2023-10-26 16:39] LABS: Troponin 5 2HR 9.25 ng/L (0-10); Troponin 5 2HR Delta 0.25 ABS# (0-10)
--- NOTE | 2023-10-26 17:04 | ECG_ITS ---
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 Measurements Intervals [place] Rate: 77 P: 39 NV: 192 QRS: 34 QRSD: 100 T: 64 QT: 379 QTc: 430 Interpretive Statements SINUS RHYTHM LOW QRS VOLTAGE IN PRECORDIAL LEADS [QRS DEFLECTION < 1.0 mV IN CHEST LEADS] Compared to ECG 10/26/2023 13:56:29 First degree AV block no longer present Intraventricular conduction delay no longer present Electronically Signed On 10-28-2023 12:48:59 CDT by Jaydon Fernandez M.D. [id number]
--- NOTE | 2023-10-26 17:35 | P.PN_ITS ---
FITTINGS TIGHTENER Subjective 2 Subjective: Interval history: Patient still having vaginal bleeding Hgb has decreased from 8.4 to 7.8, even after 6 U PRBCs transfusion Patient insists on having a hysterectomy refuses other options for treatment I would recommend transfer to a facility capable of a higher level of care in view of patient?s other medical issues along with morbid obesity Vitals/I&O/Wt Last Vital Signs Temp 98.6 F 10/26/23 16:00 Pulse 80 10/26/23 16:00 Resp 21 H 10/26/23 16:00 BP 125/69 10/26/23 16:00 Pulse Ox 97 10/26/23 09:07 O2 Del Method Nasal Cannula 10/26/23 09:07 O2 Flow Rate 2 10/26/23 09:07 FiO2 2 10/22/23 20:05 10/26/23 10/26/23 10/26/23 06:59 14:59 22:59 Intake Total 880 / 880 0 / 880 Output Total 1725 / 3945 1000 / 1000 500 / 1500 Balance -1725 / -3465 -120 / -120 -500 / -620 Weight last 48 hrs Weight 362 lb Weight 364 lb 12.8 oz Data 10/26/23 15:50 10/26/23 04:47 A&P Assessment and plan (1) Abnormal vaginal bleeding: Attestations 2 Medical Necessity Statement*: patient with excessive uterine bleeding and severe anemia Coding Level of Care Code Acute Code for Chg Fwd Diagnoses Abnormal vaginal bleeding N93.9 Time Spent (min) 15
[2023-10-26 19:50] LABS: Troponin 5 6HR 8.06 ng/L (0-10)
[2023-10-26 19:51] LABS: Troponin 5 6HR Delta -0.94 ng/L (0-12)
[2023-10-27] VITALS (9 sets, daily range): BP systolic 102–134; BP diastolic 63–85; PULSE 68–93; RESP 16–29; TEMP 36.4–37.1; O2SAT 96–100
--- NOTE | 2023-10-27 01:34 | PC.NURSE ---
Patients long catheter fell out when patient was up to the commode. The balloon had become deflated. After the patient was assisted back to bed the nurse reinserted a new long catheter. When the nurse went to chart the reinsertion discovered that orders had never been placed for the previous long. Spoke with and obtained orders for long.
[2023-10-27 04:27] LABS: Basophils % 0.2 %; Eosinophils # 0.2 10^3/uL (0.0-0.8); Hematocrit 24.5 % (36-47); Lymphocytes # 2.2 10^3/uL (0.8-4.8); Lymphocytes % 23.7 %; Mean Corpuscular Hemoglobin 28.3 pg (27-33); Mean Corpuscular Volume 91.1 fl (85-98); Monocytes # 0.7 10^3/uL (0.2-0.9); Monocytes % 7.1 %; Neutrophils # 6.13 10^3/uL (1.8-7.7); Neutrophils % 66.7 %; Nucleated Red Blood Cells % 0.2 %; Platelet Count 176 10^3/cmm (157-399); Red Blood Count 2.69 10^6/uL (3.85-5.65); White Blood Count 9.19 10^3/uL (3.29-11.43)
[2023-10-27 04:47] LABS: Alanine Aminotransferase 18 U/L (0-33); Albumin Level 2.8 g/dL (3.5-5.2); Alkaline Phosphatase 131 U/L (35-105); Anion Gap 11.2 (5-19); Aspartate Amino Transferase 21 U/L (0-32); Blood Urea Nitrogen 22 mg/dL (6-20); Calcium 8.2 mg/dL (8.5-10.5); Carbon Dioxide 32 mmol/L (22-29); Chloride 96 mmol/L (98-107); Creatinine Clr Calc Pharmacy 116.7671; Globulin 2.9 g/dL (1.3-4.6); Glomerular Filtration Rate 60.5 mL/min (90-130); Glucose 106 mg/dL (65-115); Magnesium 2.2 mg/dL (1.7-2.3); Osmolality Calculated 284 mOsm/kg (285-295); Potassium 4.2 mmol/L (3.5-5.1); Sodium 135 mmol/L (136-145); Total Bilirubin 0.3 mg/dL (0.15-1.2); Total Protein 5.7 g/dL (6.6-8.7)
[2023-10-27] MEDS: FUROsemide 10 mg/mL SDV 4mL 40 MG IVP (09:59)
[2023-10-27] MEDS: metoprolol tartrate 25 mg Tablet PO (09:59)
[2023-10-27] MEDS: pantoprazole DR 40 mg Tablet PO (09:59)
--- NOTE | 2023-10-27 12:35 | P.PN_ITS ---
Subjective 2 Subjective: Patient overall doing well. No chest pain. Vitals/I&O/Wt Last Vital Signs Temp 97.8 F 10/27/23 11:53 Pulse 68 10/27/23 11:53 Resp 17 10/27/23 11:53 BP 107/83 10/27/23 11:53 Pulse Ox 97 10/27/23 11:53 O2 Del Method Nasal Cannula 10/27/23 11:24 O2 Flow Rate 2 10/27/23 10:33 FiO2 2 10/22/23 20:05 10/26/23 10/27/23 10/27/23 22:59 06:59 14:59 Intake Total 432.207 / 0419.201 3240 / 3412.207 440 / 440 Output Total 880 / 1880 1000 / 2880 Balance -447.793 / -225.471 4181 / 532.207 440 / 440 Weight last 48 hrs Weight 365 lb 14.4 oz Weight 362 lb Physical Exam 2 Narrative: GENERAL: Patient is alert, awake and oriented x3. [] NECK: No jugular vein distension. [] HEENT: No cyanosis. No icterus. No pallor. [] HEART: Regular S1 and S2. No murmur, rub or gallop. [] LUNGS: Clear to auscultate bilaterally. [] CENTRAL NERVOUS SYSTEM: Grossly nonfocal. [] EXTREMITIES: Lower extremities with 1+ edema bilaterally. Urinary Catheter Management: Cha: Cath Placed During This Visit: yes Reason for Continuing Indwelling Catheter: Accurate Measurement of Urinary Output in Critically Ill Patients Urinary Catheter Date of Insertion: 10/26/23 Urinary Catheter Time of Insertion: 21:30 Data 10/27/23 04:15 10/27/23 04:15 A&P Assessment and plan (1) Tachycardia, unspecified: (2) Essential hypertension: Plan Patient's heart rate is controlled. Continue holding Eliquis secondary to recent bleed. Close outpatient follow-up. Attestations 2 Medical Necessity Statement*: Care expected to cross 2 midnights. Coding Level of Care Code Acute Code for g Fwd Diagnoses Tachycardia, unspecified R00.0 Essential hypertension I10
--- NOTE | 2023-10-27 12:44 | P.DS_ITS ---
Discharge Providers Date of Admission: 10/22/23 22:49 Date of Discharge: October 27, 2023 Attending Provider at Admission: Taco Silva MD Attending Provider at Discharge: Vivian Chou MD Primary Care Provider: Jason Castro Diagnoses at Discharge Discharge Diagnosis (1) Tachycardia, unspecified: Status: Resolved (2) Essential hypertension: Status: Acute Reason for Visit Reason for Visit: low O2 Hospital Course Hospital Course Patient was admitted for acute blood loss anemia secondary to menorrhagia. Hemoglobin was as low as 4 on admission. She required 6 units of packed RBCs during hospital stay FFP and platelets. She also got 5 doses of Premarin every 6 hours for 5 doses total. She was seen by [facility]. Ultimately hysterectomy has been recommended however as an outpatient. At 1 point I also attempted to transfer her to [facility] however they declined for transfer noting that patient should go to [facility] since she has already established there. Patient received her pacemaker at [facility] last year. Patient was on sotalol at home and Eliquis. Both were held during hospital stay. For rate control she was started on metoprolol 25 twice daily. Cardiology was consulted during the stay. Patient's vaginal bleeding completely stopped at time of discharge and since hemoglobin was stable she was sent home to follow-up with [facility] in [place] outpatient. Patient agreeable to the plan. Of note patient was offered an IUD by OB however she declined that at this time. Physical Exam Narrative: General: Comfortable appearing female HEENT: Head atraumatic, normocephalic to visual inspection CV: Normal rate and rhythm, S1-S2 noted, Pulm: cta b/l GI: Obese abdomen, soft, non tender Extremities: Capillary refill <2 seconds, mild edema noted bilateral lower extremities. Urinary Catheter Management: Cha: Cath Placed During This Visit: yes Reason for Continuing Indwelling Catheter: Accurate Measurement of Urinary Output in Critically Ill Patients Urinary Catheter Date of Insertion: 10/26/23 Urinary Catheter Time of Insertion: 21:30 Discharge Data Studies Completed and Pending Completed Studies During Hospitalization Category Date Time Status CT abdomen pelvis w con* [id number] Stat Cat Scan 10/23/23 09:30 Completed CXRP [XR chest 1V portable [id number]] Stat Exams 10/23/23 18:07 Completed XR chest 1V portable [id number] Stat Exams 10/22/23 20:10 Completed US pelvic complete* [id number] Stat Ultrasound 10/22/23 22:23 Completed Pending at discharge Category Date Time Status CBC Auto Diff [Complete Blood Count w/Auto] Q12H Lab 10/27/23 03:17 Ordered CBC Auto Diff [Complete Blood Count w/Auto] Q12H Lab 10/27/23 15:17 Ordered CBC Auto Diff [Complete Blood Count w/Auto] Q12H Lab 10/28/23 03:17 Ordered CBC Auto Diff [Complete Blood Count w/Auto] Q12H Lab 10/28/23 15:17 Ordered CBC Auto Diff [Complete Blood Count w/Auto] Q12H Lab 10/29/23 03:17 Ordered Radiology Impressions Pelvis Ultrasound 10/22/23 22:23 IMPRESSION: 1. Enlarged uterus without discrete mass could reflect adenomyosis which can be associated with menorrhagia. 2. Endometrium is indistinct and thickened. Differential diagnosis includes late secretory phase physiologic endometrium as well as endometrial hyperplasia or less likely malignancy. 3. Left ovary is expanded by a 7.4 cm cyst, potentially a paraovarian cyst. Right ovary could not be demonstrated. Abdomen/Pelvis CT 10/23/23 09:30 IMPRESSION: 6 cm left ovarian cyst. Consider nonemergent characterization with pelvic ultrasound. There are no strandy inflammatory changes surrounding the left ovarian cyst Chest X-Ray 10/23/23 18:07 IMPRESSION: The new right internal jugular vein central venous catheter is in good position and there is no pneumothorax Laboratory Results WBC 9.19 10^3/uL (3.29-11.43) 10/27/23 04:15 RBC 2.69 10^6/uL (3.85-5.65) L 10/27/23 04:15 Hgb 7.60 g/dL (11.27-16.99) L 10/27/23 04:15 Hct 24.5 % (36-47) L 10/27/23 04:15 MCV 91.1 fl (85-98) 10/27/23 04:15 MCH 28.3 pg (27-33) 10/27/23 04:15 MCHC 31.0 g/dL (30-55) 10/27/23 04:15 RDW 15.0 % (12.1-15.1) 10/27/23 04:15 Plt Count 176 10^3/cmm (157-399) 10/27/23 04:15 MPV 10.0 fL (7.4-10.4) 10/27/23 04:15 Neut % (Auto) 66.7 % 10/27/23 04:15 Lymph % (Auto) 23.7 % 10/27/23 04:15 [place] % (Auto) 7.1 % 10/27/23 04:15 Eos % (Auto) 2.0 % 10/27/23 04:15 Baso % (Auto) 0.2 % 10/27/23 04:15 Neut # (Auto) 6.13 10^3/uL (1.8-7.7) 10/27/23 04:15 Lymph # (Auto) 2.2 10^3/uL (0.8-4.8) 10/27/23 04:15 [place] # (Auto) 0.7 10^3/uL (0.2-0.9) 10/27/23 04:15 Eos # (Auto) 0.2 10^3/uL (0.0-0.8) 10/27/23 04:15 Baso # (Auto) 0.0 10^3/uL (0.0-0.1) 10/27/23 04:15 Nucleated RBC % (auto) 0.2 % 10/27/23 04:15 Nucleated RBCs # 0.0 /100WBC 10/27/23 04:15 PT 17.20 SECONDS (12.1-14.9) H 10/22/23 21:06 INR 1.36 (0.8-1.2) H 10/22/23 21:06 Specimen Type Arterial 10/22/23 20:51 Sample Site Radial, right 10/22/23 20:51 ABG pH 7.53 (7.35-7.45) H 10/22/23 20:51 ABG pCO2 38.3 mmHg (35-45) 10/22/23 20:51 ABG pO2 129.0 mmHg (80.0-100.0) H 10/22/23 20:51 ABG HCO3 32.0 mmol/L (22-26) H 10/22/23 20:51 ABG O2 Saturation > 100.0 10/22/23 20:51 ABG Base Excess 8.4 mmol/L (-2.0-2.0) H 10/22/23 20:51 [place] Test Pos 10/22/23 20:51 A-a O2 Gradient Not Reportable 10/22/23 20:51 Hematocrit 12.8 % (37-47) L 10/22/23 20:51 Hgb O2 Saturation 98.1 % (95-100) 10/22/23 20:51 Carboxyhemoglobin 2.4 %THgb (0.4-20.1) 10/22/23 20:51 Methemoglobin 0.3 % (0.4-1.5) L 10/22/23 20:51 Total Hemoglobin 4.2 g/dL (12-16) L 10/22/23 20:51 Sodium 139.0 mmol/L (131-143) 10/22/23 20:51 Potassium 4.4 mmol/L (3.5-5.0) 10/22/23 20:51 Glucose 104.0 mg/dL (70-115) 10/22/23 20:51 Ionized Calcium 1.1 mmol/L (1.1-1.4) 10/22/23 20:51 O2 Delivery Device Nc 10/22/23 20:51 O2 Liters/Min 6.0 % 10/22/23 20:51 Electronics Computer Mechanic ID [email or web address] 10/22/23 20:51 Sodium 135 mmol/L (136-145) L 10/27/23 04:15 Potassium 4.2 mmol/L (3.5-5.1) 10/27/23 04:15 Chloride 96 mmol/L (98-107) L 10/27/23 04:15 Carbon Dioxide 32 mmol/L (22-29) H 10/27/23 04:15 Anion Gap 11.2 (5-19) 10/27/23 04:15 BUN 22 mg/dL (6-20) H 10/27/23 04:15 Creatinine 1.0 mg/dL (0.5-0.9) H 10/27/23 04:15 GFR Calculation 60.5 mL/min (90-130) L 10/27/23 04:15 Glucose 106 mg/dL (65-115) 10/27/23 04:15 Calculated Osmolality 284 mOsm/kg (285-295) L 10/27/23 04:15 Calcium 8.2 mg/dL (8.5-10.5) L 10/27/23 04:15 Magnesium 2.2 mg/dL (1.7-2.3) 10/27/23 04:15 Total Bilirubin 0.3 mg/dL (0.15-1.2) 10/27/23 04:15 AST 21 U/L (0-32) 10/27/23 04:15 ALT 18 U/L (0-33) 10/27/23 04:15 Alkaline Phosphatase 131 U/L (35-105) H 10/27/23 04:15 Troponin T Baseline 9 ng/L (0-10) 10/26/23 11:59 Troponin T 120 Minute 9.25 ng/L (0-10) 10/26/23 15:50 Delta Troponin T 0.25 ABS# (0-10) 10/26/23 15:50 Troponin T Hi Sens 6Hr 8.06 ng/L (0-10) 10/26/23 18:31 Troponin T Hi Sens 6Hr Delta -0.94 ng/L (0-12) L 10/26/23 18:31 NT-Pro-B Natriuret Pep 206 pg/mL (0-125) H 10/26/23 04:47 Total Protein 5.7 g/dL (6.6-8.7) L 10/27/23 04:15 Albumin 2.8 g/dL (3.5-5.2) L 10/27/23 04:15 Globulin 2.9 g/dL (1.3-4.6) 10/27/23 04:15 TSH 2.66 uIU/mL (0.27-4.20) 10/22/23 21:06 HCG, Qual Negative (Negative) 10/22/23 21:06 Urine Color Yellow (Yellow) 10/23/23 00:55 Urine Appearance Clear (CLEAR) 10/23/23 00:55 Urine pH 5 (5-7) 10/23/23 00:55 Ur Specific [place] 1.015 (1.005-1.030) 10/23/23 00:55 Urine Protein Neg (Negative) 10/23/23 00:55 Urine Glucose (UA) Norm (Normal) 10/23/23 00:55 Urine Ketones Negative (Negative) 10/23/23 00:55 Urine Blood 2+ (Negative) H 10/23/23 00:55 Urine Nitrate Negative (Negative) 10/23/23 00:55 Urine Bilirubin Neg (Negative) 10/23/23 00:55 Urine Urobilinogen 1 mg/dL (Negative) H 10/23/23 00:55 Ur Leukocyte Esterase Negative (Negative) 10/23/23 00:55 Urine RBC 0-4 /hpf (0-2) H 10/23/23 00:55 Urine WBC 0-4 /hpf (0-5) H 10/23/23 00:55 Ur Squamous Epith Cells 0-4 /hpf (0-5) H 10/23/23 00:55 Amorphous Sediment Not Reportable 10/23/23 00:55 Urine Bacteria None /hpf (NONE) 10/23/23 00:55 Urine Mucus 1+ /hpf 10/23/23 00:55 Blood Type B Positive 10/27/23 10:35 Rho(D) Type Rh positive 10/27/23 10:35 Antibody Screen Negative 10/27/23 10:35 Crossmatch See Detail 10/27/23 10:35 Vitals Last Vital Signs Temp 97.8 F 10/27/23 11:53 Pulse 68 10/27/23 11:53 Resp 17 10/27/23 11:53 BP 107/83 10/27/23 11:53 Pulse Ox 97 10/27/23 11:53 O2 Del Method Nasal Cannula 10/27/23 11:24 O2 Flow Rate 2 10/27/23 10:33 FiO2 2 10/22/23 20:05 Discharge Plan Discharge Patient Disposition: Home Condition: Stable Prescriptions: New metoprolol tartrate 25 mg Tablet 25 mg PO BID@0900,2100 Qty: 60 0RF amiodarone 200 mg tablet See Rx Instructions .ROUTE .COMPLEX 30 Days Qty: 50 0RF Rx Instructions: 400 mg twice daily x 7 days then 200 mg daily thereafter Continued furosemide 40 mg tablet 40 mg PO BID atorvastatin 40 mg tablet 40 mg PO DAILY levothyroxine 75 mcg tablet 75 mcg PO DAILY pantoprazole 40 mg tablet,delayed release (DR/EC) 40 mg PO DAILY Held sotalol 80 mg tablet 80 mg PO DAILY Hold Instructions: see cardiology spironolactone 25 mg tablet 25 mg PO DAILY Hold Instructions: see cardiology Eliquis 5 mg tablet 5 mg PO BID Hold Instructions: see pcp Discharge Orders: Discharge Order (Routine); Ordered 10/27/23 Ordered By: Vivian Chou Other Ambulatory Orders: Complete Blood Count w/Auto (Q3D) Timeframe: 20231030 Location: Determined by Patient Ordered By: Vivian Chou Complete Blood Count w/Auto (Q3D) Timeframe: 20231102 Location: Determined by Patient Ordered By: Vivian Chou Referrals: Vonnie Cuellar MD [Referring] - 4-7 days (Please call Dr. Cuellar's Office on Sunday at [phone] to schedule a follow up appointment. Thank you.) Cali Daley MD [Physician] - 1-3 days (Please call Dr. Daley's Office on Sunday at [phone] to schedule a follow up appointment. Thank you.) Jason Castro [Primary Care Provider] - 1-3 days (Please call Dr. Castro's O ffice on Sunday at [phone] to schedule a follow up appointment. Thank you.) Discharge Diet: Cardiac Discharge Activity: Resume usual activity Patient Instructions: Metoprolol (By mouth) (Lopressor, Toprol XL), Amiodarone (By mouth) (Cordarone, Pacerone), Heart Failure (DC), A-fib (Atrial Fibrillation) (DC), Anemia (DC), Blood Transfusion (DC), Acute Posthemorrhagic Anemia (DC), CHF Stoplight, Opioid Safety Discharge Attestations Time Spent in Discharge Care*: greater than 30 min Status at Discharge: Cognitive status at discharge: mildly impaired cognition , Behavioral status at discharge: cooperative , Quality Metrics Clinical Quality Measures [ No reported AMI, CVA or VTE this stay] Coding Level of Care Code Acute Code for Chg Fwd Diagnoses Tachycardia, unspecified R00.0 Essential hypertension I10
== END 2023-10-27 14:50 | disposition home or self-care (01) | DRG 811 ==
LOC: ER 22:31 → ICU 22:49 → MEDSURG 10-25 17:03 → CSU 10-26 12:14
PROVIDERS: Admitting Provider Internal Medicine; Emergency Provider Emergency Medicine; PCP Family Medicine; Visit Provider Internal Medicine
DX: D62 Acute posthemorrhagic anemia (principal); I50.33 Acute on chronic diastolic (congestive) heart failure; Z68.43 Body mass index [BMI] 50.0-59.9, adult; N93.9 Abnormal uterine and vaginal bleeding, unspecified; E66.9 Obesity, unspecified; I11.0 Hypertensive heart disease with heart failure; E78.5 Hyperlipidemia, unspecified; E03.9 Hypothyroidism, unspecified; I48.91 Unspecified atrial fibrillation; R00.0 Tachycardia, unspecified; J44.9 Chronic obstructive pulmonary disease, unspecified; E28.2 Polycystic ovarian syndrome; E55.9 Vitamin D deficiency, unspecified; I25.2 Old myocardial infarction; Z79.01 Long term (current) use of anticoagulants; Z99.81 Dependence on supplemental oxygen; Z95.0 Presence of cardiac pacemaker; Z87.891 Personal history of nicotine dependence; Z87.01 Personal history of pneumonia (recurrent)
CPT/HCPCS: 36415; 36430; 36592; 36600; 51702; 71045; 74177; 76856; 80048; 80051; 80053; 81001; 82330; 82805; 83735; 83880; 84443; 84484; 84703; 85025; 85610; 86850; 86900; 86920; 86927; 93005; 94640; 96374; 96376; 99285; C1751; J0283; J1410; J1940; J3475; J7626; P9016; P9017; Q9967